=== PATIENT | female | born 1980 | race American Indian/Alaskan Native ===

== ENCOUNTER 2022-09-21 10:20 | Emergency (ER) | payer MEDICAID, SELFPAY ==
[2022-09-21 10:59] VITALS: BP 119/75; PULSE 74; RESP 18; TEMP 36.5; O2SAT 99; BMI 27.3
[2022-09-21 12:26] LABS: Influenza A PCR NEGATIVE (Negative); Influenza B PCR NEGATIVE (Negative); Resp Syncy Virus RNA Qual PCR NEGATIVE (Negative); SARS COV2 PCR INHOUSE NEGATIVE (Negative)
--- NOTE | 2022-09-21 13:14 | ED.GENADULT ---
HPI - General Adult General Chief complaint: General Medical Stated complaint: Strep throat Time Seen by Provider: 09/21/22 13:03 Source: patient and old records reviewed History of Present Illness HPI narrative: Patient states she began feeling sick a little over week ago. Seven days ago she saw her PCP and was diagnosed with strep throat by a throat swab. She was started on penicillin. She has just been getting progressively worse ever since She continues to have fevers up to 101 at home. And now her ears hurt which is a new symptom. Right more so than left. Sore throat is slightly better. But still present. Mild cough. No sputum. General myalgias. No dyspnea. No history of asthma. Smoker of approximately 4 cigarettes per day but states has not smoked at all since she has been sick. Related Data Previous Rx's Medication Instructions Recorded amoxicillin 500 mg tablet 1,000 mg PO Q12H #40 tabs 09/21/22 prednisone 20 mg tablet 40 mg PO DAILY #10 tabs 09/21/22 Allergies Allergy/AdvReac Type Severity Reaction Status Date / Time No Known Allergies Allergy Verified 09/21/22 10:59 [No Known Allergies*] Review of Systems Constitutional: Comments: Fevers and chills. Myalgias. ENT: Comments: Ear pain, sore throat, Cardiovascular: Comments: no chest pain or palpitations Respiratory: Comments: minimal cough. No dyspnea Gastrointestinal: Comments: no nausea vomiting diarrhea constipation Genitourinary: Comments: no dysuria Integumentary/Breasts: Comments: no rash Neurologic: Comments: no focal weakness Hematologic/Lymphatic: Comments: positive submandibular lymph node enlargement, bilateral, equal PMFSH Social History Social History Advance Directives: No Advance Directives Information Provided: No Physical Exam ED Vital Signs: Vital Signs - 24 hr 09/21/22 10:59 Temperature 97.7 F Pulse Rate 74 Respiratory Rate 18 Blood Pressure 119/75 Pulse Oximetry 99 Oxygen Delivery Method Room Air BMI result Body Mass Index 27.3 Const Other: awake and alert. No acute distress. Afebrile here HENMT Other: throat with mild erythema. No exudate. No tonsillar swelling. No uvula swelling. No stridor. positive bilateral submandibular lymphadenopathy. No difficulty swallowing. Left TM with bulging, clear fluid, ossicles not visible secondary to fluid. Right TM bulging, erythematous, ossicles not visible secondary to fluid. Eyes Other: mild conjunctiva injection without other abnormalities Neck Other: Full range of motion. No meningismus Resp Other: good air entry bilaterally. Clear and equal bilaterally. No wheezes rales or rhonchi. Cardio Other: Regular rate and rhythm without murmurs rubs or gallops GI Other: soft nondistended. Minimal left upper quadrant tenderness. Skin Other: Warm pink and dry without rash Neuro Other: grossly nonfocal neuro exam Medical Decision Making Medical Decision Making [facility] Narrative: Patient with recent strep infection, possibly with secondary viral infection. Right otitis media which is apparently new. Will switch from penicillin to amoxicillin for better coverage. Will add prednisone for inflammatory symptoms Lab Data Labs: Lab Results 09/21/22 Range/Units 11:41 Influenza Type A (PCR) NEGATIVE (Negative) Influenza Type B (PCR) NEGATIVE (Negative) RSV RNA Qual (PCR) NEGATIVE (Negative) SARS-CoV-2 RNA (RT-PCR) NEGATIVE (Negative) Discharge Plan Discharge Clinical Impression: Otitis media Patient Disposition: Home, Self-Care Instructions: Ear Infection (ED) Additional Instructions: stop taking penicillin. Continue all other medications. The new antibiotic is amoxicillin. Prednisone is for inflammation and swelling. Prescriptions: New prednisone 20 mg tablet 40 mg PO DAILY Qty: 10 0RF amoxicillin 500 mg tablet 1,000 mg PO Q12H Qty: 40 0RF
== END 2022-09-21 13:35 | disposition home or self-care (01) ==
PROVIDERS: Emergency Provider Emergency Medicine
DX: H66.91 Otitis media, unspecified, right ear (principal); Z20.828 Contact with and (suspected) exposure to other viral communicable diseases
CPT/HCPCS: 0241U; 99283

== ENCOUNTER 2023-07-25 05:18 | Emergency (ER) | payer OTHER, SELFPAY ==
[2023-07-25 05:28] VITALS: BP 156/85; PULSE 81; RESP 15; TEMP 36.4; O2SAT 98; BMI 26.4
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
[2023-07-25] MEDS: cephALEXin 500 MG CAPSULE PO (06:19)
[2023-07-25] MEDS: NaPROXEN 500 MG TABLET PO (06:19)
== END 2023-07-25 06:29 | disposition home or self-care (01) ==
PROVIDERS: Emergency Provider Emergency Medicine
DX: S81.811A Laceration without foreign body, right lower leg, initial encounter (principal); S81.812A Laceration without foreign body, left lower leg, initial encounter; L03.116 Cellulitis of left lower limb; L03.115 Cellulitis of right lower limb; X99.9XXA Assault by unspecified sharp object, initial encounter; Y93.9 Activity, unspecified; Y92.9 Unspecified place or not applicable; Y99.9 Unspecified external cause status; Z79.899 Other long term (current) drug therapy
CPT/HCPCS: 99284

== ENCOUNTER 2023-08-17 18:02 | Emergency (ER) | payer OTHER, SELFPAY ==
[2023-08-17 18:40] VITALS: BP 154/117; PULSE 111; RESP 20; TEMP 36.9; O2SAT 97; BMI 25.4
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
--- OUTSIDE RECORDS SUMMARY | 2023-08-17 19:41 | XMS_ITS | Continuity of Care Document ---
Author Name Unknown Organization [facility] Adult Address [address] [place] [address]- Care Team Providers Care Coater Hand Name Role Phone Geremias CARMONA, Adeola Prado [id number] - 09/03/22 [facility] Adult [address] [place] [id number]- Encounter Diagnosis Bipolar affective(Discharge Diagnosis) - 08/27/22 Depression(Discharge Diagnosis) - 08/27/22 Attending Physician: Not on Staff, Attending MD Allergies, Adverse Reactions, Alerts Substance Reaction Severity Status Mold Active Immunizations Given and Recorded Vaccine Date Status Refusal Reason influenza virus vaccine, inactivated 1 08/10/22 Gi robyn influenza virus vaccine, inactivated 07/05/20 Give n influenza virus vaccine, inactivated 06/27/19 Give n influenza virus vaccine, inactivated 06/14/18 Trell rded influenza virus vaccine, inactivated 05/14/17 Trell rded influenza virus vaccine, inactivated 11/02/16 Trell rded influenza virus vaccine, inactivated 11/05/15 Give n influenza virus vaccine, inactivated 11/16/14 Trell rded pneumococcal 23-valent vaccine 02/09/20 Given tetanus/diphtheria/pertussis, acel(Tdap) 07/03/19 Given tetanus/diphtheria/pertussis, acel(Tdap) 12/19/15 Given tetanus/diphtheria/pertussis, acel(Tdap) 05/14/15 Recorded tetanus/diphtheria/pertussis, acel(Tdap) 01/20/11 Given influ virus vac, H1N1, inactive(oldterm) 2 07/30/09 Given 1Result Comment: [facility] [id number] 2Admin Note: H1N1 Medications cloNIDine 0.1 mg oral tablet 0.1 mg, 1, tablet, By Mouth, 2 times a day, Take 1 tab 2 or 3 times a day as needed for anxiety, # 180 tablet, Refills 0, Tot. Refills 0, Maintenance, 08/24/22 11:30:00 EST, Do Not Route, Partial fill upon patient request if the prescription is for a... Start Date: 08/24/22 Status: Ordered clotrimazole 1% topical cream 1 application, Topically, 2 times a day, for 4 week(s), Apply to affected areas twice daily until resolution, # 30 Gm, 1 Refills, Acute 10/22/22 9:56:00 EST, 08/27/22 9:56:00 EST, Cream, [facility]/pharmacy#[id number], Partial fill upon patient request if the pre... Start Date: 08/27/22 Stop Date: 10/22/22 Status: Ordered KlonoPIN 1 mg oral tablet 1 tablet = 1 mg, By Mouth, 2 times a day, PRN Anxiety, # 8 tablet, 0 Refills, Maintenance, 07/05/2010:05:00 EDT, Tablet, [facility]/pharmacy #[id number], 158, cm, 06/11/20 12:25:00 EDT, Height, 79.1, kg, 07/05/20 9:07:00 EDT, Dry Weight Start Date: 07/05/20 Stop Date: 07/09/20 Status: Ordered LaMICtal 100 mg oral tablet 100 mg, 1, tablet, By Mouth, Daily, 1 tablet by mouth daily at bedtime, # 60 tablet, Refills 0, Tot. Refills 0, Maintenance, 08/24/22 11:26:00 EST, Do Not Route, Partial fill upon patient request if the prescription is for a schedule II opioid drug. Start Date: 08/24/22 Status: Ordered lamotrigine 150 mg oral tablet 2 tablet = 300 mg, By Mouth, Daily, Take 2 tabs by mouth every night at bedtime, # 60 tablet, 0 Refills, Maintenance, 08/24/22 11:24:00 EST, Tablet, Partial fill upon patient request if the prescription is for a schedule II opioid drug. Start Date: 08/24/22 Status: Ordered Methadone = 150 mg, By Mouth, Daily, [facility], 0 Refills, Maintenance, 01/23/20 13:17:00 EDT, Tablet,Partial fill upon patient request Start Date: 01/23/20 Status: Ordered Nicotrol Inhaler 10 mg inhalation device See Instructions, follow label instructions, # 1 each, 0 Refills, Maintenance, 08/24/22 11:26:00 EST, Partial fill upon patient request if the prescription is for a schedule II opioid drug. Start Date: 08/24/22 Status: Ordered SEROquel 50 mg oral tablet 1 tablet = 50 mg, By Mouth, 2 times a day, one tab at HS and one tab during the night PRN, # 60 tablet, 0 Refills, Maintenance, 08/24/22 11:29:00 EST, Tablet, Partial fill upon patient request if theprescription is for a schedule II opioid drug. Start Date: 08/24/22 Status: Ordered Vraylar 3 mg oral capsule 1 capsule = 3 mg, By Mouth, Daily, # 30 capsule, 0 Refills, Maintenance, 08/24/22 11:24:00 EST, Partial fill upon patient request if the prescription is for a schedule II opioid drug. Start Date: 08/24/22 Status: Ordered Problem List Condition Confirmation Course Effective Dates Status H ealth Status Informant Anxiety 1 Confirmed Active Bipolar affective 2 Confirmed Active Marijuana smoker Confirmed Active Constipation Confirmed Active Depression 3 Confirmed Active Dysphagia Confirmed Active Frequent headaches Confirmed Active GERD (gastroesophageal reflux disease) Confirmed Active GBS carrier Confirmed Active Hx of trauma in childhood Confirmed Active H/O delivery, currently Confirmed Active Homeless Confirmed Active Dermatitis Confirmed Active Low grade KHAI Confirmed Active Drug abuse during 4 Confirmed Active Encounter to establish care Confirmed Active Screening for breast cancer Confirmed Active Contraception management Confirmed Active PTSD (post-traumatic stress disorder) Confirmed Active Cervix, short (affecting ) Confirmed Active Subclinical hypothyroidism Confirmed Active Current tobacco use Confirmed Active 1Hx of anxiety - not managed at present 2Hx of bipolar- not managed at present 3Hx of depression - not managed at present. 4utox 02/13: positive cocaine, marijuana, benzo, opiates, methadone Diagnosis Diagnosis Type Effective Dates Health Status Clinical Service Informant Bipolar affective Discharge Diagnosis 08/27/22 Depression Discharge Diagnosis 08/27/22 Vital Signs Most recent to oldest [Reference Range]: 1 Height 158 cm (08/27/22 9:10 AM) Weight 66 kg (08/27/22 9:10 AM) Oxygen Saturation [94-100 %] 99 % (08/27/22 9:10 AM) Pulse Rate [55-90 bpm] 75 bpm (08/27/22 9:10 AM) Body Mass Index [18.5-24.99 kg/m2] 26.44 kg/m2 *H* (08/27/22 9:10 AM) Blood Pressure [90-138/55-84 mm Hg] 109/ 70mm Hg (08/27/22 9:10 AM) Mode of Delivery (Oxygen) Room air (08/27/22 9:10 AM) Blood pressure sites Arm, left (08/27/22 9:10 AM) Weight Obtained Via Standing scale (08/27/22 9:10 AM) Social History Social History Type Response Smoking Status 5-9 cigarettes (betw een 1/4 to 1/2 pack)/day in last 30 days; Interested in cessation: No entered on: 08/10/22 Sex Female Note * Rosario Sahu: PERFORM, SIGN, VERIFY Event Display: Patient Education/Instruction Authored Date: [id number] [facility] *[facility] Clinical Summary Name LASHANDA RICHTER Age 42 Years 1980 PCP Geremias CARMONA, Adeola Prado PCP Visit Date 08/27/2022 08:53:00 Additional Instructions: Scheduled Appointments?? Future Appointments ?*[facility] ?Phone:??--?Fax:??-- ?Appt. Date:??10/08/2022?9:00 AM ?Scheduled Provider:??Nadir Wolf MD ?*[facility] ?[address] ?Phone:??--?Fax:??-- ?Appt. Date:??10/13/2022?2:00 PM ?Scheduled Provider:??Geremias CARMONA, Adeola Prado Follow-Up Instructions ?? Diagnosis Medications: Please continue your medications until treatment is completed or stopped by your provider. Discuss any questions related to medications with your provider. Medications to Continue with No Changes These medications were not printed or sent to your pharmacy cariprazine (Vraylar 3 mg oral capsule) 1 capsule Oral Daily. Refills: 0. Next Dose: Clonazepam (KlonoPIN 1 mg oral tablet) 1 tab(s) Oral twice a day as needed Anxiety for 4 Days. Refills: 0. Next Dose: Clonidine (cloNIDine 0.1 mg oral tablet) 1 tab(s) Oral twice a day. Take 1 tab 2 or 3 times a day as needed for anxiety. Refills: 0. Next Dose: Lamotrigine (LaMICtal 100 mg oral tablet) 1 tab(s) Oral Daily. 1 tablet by mouth daily at bedtime. Refills: 0. Next Dose: Lamotrigine (lamotrigine 150 mg oral tablet) 2 tab(s) Oral Daily. Take 2 tabs by mouth every night at bedtime. Refills: 0. Next Dose: Methadone 150 Milligram Oral Daily. [facility]. Next Dose: Nicotine (Nicotrol Inhaler 10 mg inhalation device) follow label instructions. Refills: 0. Next Dose: Quetiapine (SEROquel 50 mg oral tablet) 1 tab(s) Oral twice a day. one tab at HS and one tab duringthe night PRN. Refills: 0. Next Dose: Allergy Info:?? Mold Medications Given This Visit Future Orders ?No future orders Vital Signs Height 158 cm Weight 66 kg BMI 26.44 kg/m2 Blood Pressure 109 mm Hg/70 mm Hg Temperature Pulse Rate 75 bpm Respiratory Rate 02 Sat Mode of Delivery 99 %/Room air You can now view a summary of your hospital visit from the comfort of your home through a free online portal called [employer]. [employer] is a website that allows you to securely view your medical information including discharge summary, medications and follow-up visits. ??You can alsosend a secure electronic message to your doctor???s office to request appointments, renew medications or just ask a question. You can enroll at [email or web address] or register during your next office visit. Disclaimer:?? The information provided is of a general nature and is intended to be used in conjunction with the recommendations and advice of your health care practitioner. ??Every effort has been made to ensure that the information provided is accurate and complete at the time it is provided to you however, as your needs change, or, as new ??information becomes available, different or additional instructions may be required. If you have questions, please consult with your primary care provider or pharmacist, as appropriate. ??This information is not intended to serve as substitution for assessment and evaluation by a qualified health care provider. If you do not have a primary care provider, you may find a [facility] provider by calling [facility] at [phone]. For information about the plan of care including goals and instructions for your diagnosis, please see the patient education orders section of this document. Patient Education Materials?? The content of this educational material or handout may have been modified, supplemented, or adapted from its original content and format to support your individualized medical care. Patient Care team information Care Team Personnel Name: Nat Joe RN Position: [facility] RN Member Role: Primary Care Nurse Name: Carina VALERIO, Jo De Los Santos Position: [facility] AM[facility] Nurse Member Role: Primary Care Nurse Name: Geremias CARMONA, Adeola Prado Position: [facility]O Associate Professional Member Role: PCP Address: Address: [address] [place] [address]- Care Team Related Persons Name: GRADY BEARDEN Address: home [address] [place] [address] Name: NEEAN COLE Address: [place] Address: home [address] [place] [address] Name: GRADY COLE Address: home [phone] [place] [address] Name: LUANNE SUTTON Address: home [address] [place] [address]
--- OUTSIDE RECORDS SUMMARY | 2023-08-17 19:41 | XMS_ITS | Continuity of Care Document ---
Author Name Unknown Organization [facility] Adult Address [address] [place] [address]- Care Team Providers Care Human Insights Lead Ads Marketing Name Role Phone Geremias CARMONA, Adeola Prado Primary Care Physician Encounter [facility] Date(s): 09/15/22 - 10/15/22 [facility] Adult [address] [place] [address]- Allergies, Adverse Reactions, Alerts Substance Reaction Severity [...] H1N1, inactive(oldterm) 2 07/30/09 Given 1Result Comment: [facility] [id number] 2Admin Note: H1N1 Medications cariprazine 1.5 mg oral capsule 1 capsule = 1.5 mg, By Mouth, Daily, # 30 capsule, 1 Refills, Maintenance, 10/13/22 14:22:00 EST, [facility]/pharmacy #[id number], Partial fill upon patient request if the prescription is for a schedule II opioiddrug., 158, cm, 10/13/22 14:04:00 EST, Height, 64,... Start Date: 10/13/22 Stop Date: 12/12/22 Status: Ordered cloNIDine 0.1 mg oral tablet 0.1 mg, 1, tablet, By Mouth, 2 times a day, # 60 tablet, Refills 1, Tot. Refills 1, Maintenance, 09/14/22 10:10:00 EST, Route to Pharmacy Electronically, [facility]/pharmacy #[id number], Partial fill upon patientrequest if the prescription is for a schedule II op... Start Date: 09/14/22 Stop Date: 11/13/22 Status: Ordered clotrimazole 1% topical cream 1 application, Topically, 2 times a day, for 4 week(s), Apply to affected areas twice daily until resolution, # 30 Gm, 1 Refills, Acute 10/22/22 9:56:00 EST, 08/27/22 9:56:00 EST, Cream, [facility]/pharmacy#[id number], Partial fill upon patient request if the pre... Start Date: 08/27/22 Stop Date: 10/22/22 Status: Ordered doxycycline hyclate 100 mg oral capsule 1 capsule = 100 mg, By Mouth, 2 times a day, for 7 days, # 14 capsule, 0 Refills, Acute 10/22/22 8:44:00 EST, 10/15/22 8:44:00 EST, Capsule, [facility]/pharmacy #[id number], Partial fill upon patient request if the prescription is for a schedule II opioid drug., 1... Start Date: 10/15/22 Stop Date: 10/22/22 Status: Ordered Flonase 50 mcg/inh nasal spray 1 sprays, Nares, Both, 2 times a day, # 16 Gm, 0 Refills, Maintenance, 09/14/22 9:49:00 EST, [place]/pharmacy #[id number], Partial fill upon patient request if the prescription is for a schedule II opioid drug., 1 sprays Nares, Both 2 times a day,x7 days... Start Date: 09/14/22 Stop Date: 09/21/22 Status: Ordered lamotrigine 25 mg oral tablet 50 mg, 2, tablet, By Mouth, Daily, # 28 tablet, Refills 1, Tot. Refills 1, Maintenance, 10/13/22 14:16:00 EST, Route to Pharmacy Electronically, [facility]/pharmacy #[id number], Partial fill upon patient request if the prescription is for a schedule II opioid drug... Start Date: 10/13/22 Stop Date: 11/10/22 Status: Ordered Problem List Condition Confirmation Course Effective Dates Status H ealth Status Informant Anxiety 1 Confirmed Active Benzodiazepine abuse Confirmed Active Bipolar affective 2 Confirmed Active Marijuana smoker Confirmed Active Constipation Confirmed Active Depression 3 Confirmed Active Dysphagia Confirmed Active Frequent headaches Confirmed Active GERD (gastroesophageal reflux disease) Confirmed Active GBS carrier Confirmed Active Hx of trauma in childhood Confirmed Active H/O delivery, currently Confirmed Active History of opioid abuse Confirmed Active Homeless Confirmed Active Dermatitis Confirmed Active Low grade KHAI Confirmed Active Drug abuse during 4 Confirmed Active Sinus pain Confirmed Active Encounter to establish care Confirmed [...] 02/13: positive cocaine, marijuana, benzo, opiates, methadone Social History Social History Type Response Smoking Status 5-9 cigarettes (betw een 1/4 to 1/2 pack)/day in last 30 days; Interested in cessation: No entered on: 08/10/22 Sex Female Patient Care team information Care Team Personnel Name: Nat Joe RN Position: [facility] RN Member Role: Primary Care Nurse Name: Jo Lim RN Position: [facility] AMB Nurse Member Role: Primary Care Nurse Name: Adeola Archuleta NP Position: [facility] PCO Associate Professional Member Role: PCP Address: Address: [address] [place] [address] [address] [place] [address]- Care Team Related Persons Name: GRADY BEARDEN Address: home [address] [place] [address] Name: NEENA COLE Address: [employer] Address: home [address] [place] [address] [place] Name: GRADY COLE Address: home [phone] [place] [address] Name: LUANNE SUTTON Address: home [address] [place] [address]
--- OUTSIDE RECORDS SUMMARY | 2023-08-17 19:41 | XMS_ITS | Continuity of Care Document ---
Author Name Unknown Organization [facility] ter Address [address] [place] [address]- Care Team Providers Care Computer Patternmaker Name Role Phone Not on Staff, PCP Primary Care Physician Unavail able Encounter [facility] Date(s): 06/11/22 - 06/11/[address] [address]- Encounter Diagnosis Headache(Final) - 06/11/22 Discharge Disposition: A-D/C AMA Attending Physician: Ty Cheung MD Admitting Physician: Ty Cheung MD Referring Physician: Not on Staff, Referring [...] 1 07/30/09 Given 1Admin Note: H1N1 Medications cloNIDine 0.1 mg oral tablet 0.2 mg, 2, tablet, By Mouth, Every 12 hours, # 56 tablet, Refills 0, Tot. Refills 0, Maintenance, 08/25/20 13:12:00 EST, Route to Pharmacy Electronically, [facility]/pharmacy #[id number], Partial fill upon patient request, 158, cm, 06/11/20 12:25:00 EDT, Height, 7... Start Date: 08/25/20 Stop Date: 09/08/20 Status: Ordered KlonoPIN 1 mg oral tablet 1 tablet = 1 mg, By Mouth, 2 times a day, PRN Anxiety, # 8 tablet, 0 Refills, Maintenance, 07/05/2010:05:00 EDT, Tablet, [facility]/pharmacy #[id number], 158, cm, 06/11/20 12:25:00 EDT, Height, 79.1, kg, 07/05/20 9:07:00 EDT, Dry Weight Start Date: 07/05/20 Stop Date: 07/09/20 Status: Ordered LaMICtal 25 mg oral tablet 25 mg, 1, tablet, By Mouth, Daily, # 30 tablet, Refills 0, Tot. Refills 0, Maintenance, 07/05/20 10:06:00 EDT, Route to Pharmacy Electronically, [facility]/pharmacy #[id number], 158, cm, 06/11/20 12:25:00 EDT, Height, 79.1, kg, 07/05/20 9:07:00 EDT, Dry Weight Start Date: 07/05/20 Stop Date: 08/04/20 Status: Ordered Methadone = 150 mg, By Mouth, Daily, [facility], 0 Refills, Maintenance, 01/23/20 13:17:00 EDT, Tablet,Partial fill upon patient request Start Date: 01/23/20 Status: Ordered QUEtiapine 100 mg oral tablet 100 mg, 1, tablet, By Mouth, Daily in AM, # 14 tablet, Refills 0, Tot. Refills 0, Maintenance, 08/25/20 13:11:00 EST, Route to Pharmacy Electronically, [facility]/pharmacy #[id number], Partial fill upon patient request, 158, cm, 06/11/20 12:25:00 EDT, Height, 79.1... Start Date: 08/25/20 Stop Date: 09/08/20 Status: Ordered QUEtiapine 200 mg oral tablet 200 mg, 1, tablet, By Mouth, Daily at bedtime, # 14 tablet, Refills 0, Tot. Refills 0, Maintenance,08/25/20 13:12:00 EST, Route to Pharmacy Electronically, [facility]/pharmacy #[id number], Partial fill upon patient request, 158, cm, 06/11/20 12:25:00 EDT, Height,... Start Date: 08/25/20 Stop Date: 09/08/20 Status: Ordered Problem List Condition Effective Dates [...] during ( Confirmed) 4 Active Methadone maintenance(Confirmed) 2018 Active Cervix, short (affecting )(Confirmed) Active Subclinical hypothyroidism(Confirmed) Active Current tobacco use(Confirmed) Active 1Hx of anxiety - not managed at present 2Hx of bipolar- not managed at present 3Hx of depression - not managed at present. 4utox 02/13: positive cocaine, marijuana, benzo, opiates, methadone 592mg daily - [facility] ([place]) Results Radiology Reports * Exam Date Time Procedure Performing Provider Status 06/11/22 1:55 PM Chest 2 Views Frontal and Lat Jaya Contreras; Auth (Verified) Notes: (Chest 2 Views Frontal and Lat) Reason For Exam: Chest Pain;Other: RESULT: Chest 2 Views Frontal and Lat PA and lateral chest x-ray dated June 11, 2022. Comparison films are from July 19, 2009. HISTORY: Chest pain. FINDINGS: The cardiac silhouette is within normal limits for size. Hilar and mediastinal structuresare unremarkable. No airspace infiltrate or pleural effusion is identified. Visualized osseous structures are within normal limits. IMPRESSION: Normal chest x-ray. Examination 46[address]. Thank you for allowing me to participate in the care of this patient. WSN: [id number] Ordering Physician: Michelle Olivares Dictated By: Fredo Floyd MD Dictated Date/Time: 06/11/22 2:11 pm Reviewed By: Fredo Floyd MD Signed By: Fredo Floyd MD Signed Date/Time: 06/11/22 2:11 pm Transcribed By: MIRANDA Transcribed Date/Time: 06/11/22 2:10 pm Vital Signs Most recent to oldest [Reference Range]: 1 2 3 Oxygen Saturation [94-100 %] 100 % (06/11/22 6:52 PM) 98 % (06/11/22 5:41 PM) 100 % (06/11/22 3:00 PM) Pulse Rate [55-90 bpm] 73 bpm (06/11/22 6:52 PM) 71 bpm (06/11/22 5:41 PM) 70 bpm (06/11/22 3:00 PM) Blood Pressure [90-138/55-84 mm Hg] 139/91mm Hg *H* (06/11/22 6:52 PM) 143/97mm Hg *H* (06/11/22 5:41 PM) 147/95mm Hg *H* (06/11/22 3:00 PM) Respiratory Rate [16-30 br/min] 18 br/min (06/11/22 6:52 PM) 20 br/min (06/11/22 5:41 PM) 22 br/min (06/11/22 3:00 PM) Temperature [96.8-100.4 DegF] 98.0 DegF (06/11/22 3:00 PM) 98.9 DegF (06/11/22 12:48 PM) Mode of Delivery (Oxygen) Room air (06/11/22 6:52 PM) Room air (06/11/22 5:41 PM) Room air (06/11/22 3:00 PM) Blood pressure sites Arm, right (06/11/22 6:52 PM) Temperature Route Oral (06/11/22 3:00 PM) Oral (06/11/22 12:48 PM) Social History Social History Type Response Smoking Status 10 or more cigarette s (1/2 pack or more)/day in last 30 days entered on: 03/12/20 Sex Female Note * BHSPowerscribe , CIS S: TRANSCRIBE Everett CRANE, Fredo Biggs: VERIFY Event Display: Result: Authored Date: [id number] PA and lateral chest x-ray dated June 11, 2022. Comparison films are from July 19, 2009. HISTORY: Chest pain. FINDINGS: The cardiac silhouette is within normal limits for size. Hilar and mediastinal structuresare unremarkable. No airspace infiltrate or pleural effusion is identified. Visualized osseous structures are within normal limits. IMPRESSION: Normal chest x-ray. Examination 16950. Thank you for allowing me to participate in the care of this patient. WSN: [id number] Ordering Physician: Michelle Olivares Dictated By: Fredo Floyd MD Dictated Date/Time: 06/11/22 2:11 pm Reviewed By: Fredo Floyd MD Signed By: Fredo Floyd MD Signed Date/Time: 06/11/22 2:11 pm Transcribed By: MIRANDA Transcribed Date/Time: 06/11/22 2:10 pm Care Team Personnel Name: Not on Staff, PCP
--- OUTSIDE RECORDS SUMMARY | 2023-08-17 19:41 | XMS_ITS | Continuity of Care Document ---
Author Name Unknown Organization [facility] Adult Address [address] [place] [address]- Care Team Providers Care Elementary Reading Tutor Name Role Phone Reese CRANE, Susan Thornton Primary Care Physic fox [place] [facility] [place](s): 12/31/22 - 03/04/23 [facility] [address] [place] [address]- Attending Physician: Not on Staff, Attending MD Allergies, Adverse Reactions, Alerts Substance Reaction Severity Status Mold HEADACHE, BREATHING ISSUES Mild A ctive Immunizations Given and Recorded Vaccine Date Status [...] H1N1, inactive(oldterm) 2 07/30/09 Given 1Result Comment: [facility] [id number] 2Admin Note: H1N1 Medications Flonase 50 mcg/inh nasal spray 2 sprays = 100 mcg, Nares, Both, Daily, # 15.8 mL, 0 Refills, Maintenance, 01/20/23 10:07:00 EDT, Nasal [place], [id number], Partial fill upon patient request if the prescription is fora schedule II opioid drug., 2 sprays Nares, Both Da... Start Date: 01/20/23 Status: Ordered hydrOXYzine pamoate 50 mg oral capsule = 50 mg, By Mouth, 2 times a day, PRN Anxiety, # 60 capsule, 2 Refills, Maintenance, 01/20/23 10:15:00 EDT, Capsule, [id number], Partial fill upon patient request if the prescription is for a schedule II opioid drug., 155, cm, 01/19/23... Start Date: 01/20/23 Status: Ordered lamotrigine 25 mg oral tablet TAKE 1 TABLET BY MOUTH DAILY IN THE MORNING Start Date: 02/03/23 Status: Ordered loratadine 10 mg oral tablet 10 mg, 1, tablet, By Mouth, Daily, # 30 tablet, Refills 0, Tot. Refills 0, Maintenance, 01/20/23 10:10:00 EDT, Route to Pharmacy Electronically, [id number], Partial fill upon patient request if the prescription is for a schedule II opi... Start Date: 01/20/23 Status: Ordered oxyCODONE 5 mg oral capsule 1 capsule = 5 mg, By Mouth, Every 6 hours, 0 Refills, Maintenance, 01/29/23 15:42:00 EDT Start Date: 01/29/23 Status: Ordered prazosin 1 mg oral capsule 1 mg, 1, capsule, By Mouth, Daily at bedtime, # 30 capsule, Refills 2, Tot. Refills 2, Maintenance,01/20/23 10:19:00 EDT, Route to Pharmacy Electronically, [facility][id number], Partial fill upon patient request if the prescription is for a mary... Start Date: 01/20/23 Status: Ordered SEROquel 100 mg oral tablet 100 mg, 1, tablet, By Mouth, Daily at bedtime, # 30 tablet, Refills 2, Tot. Refills 2, Maintenance,01/20/23 10:11:00 EDT, Route to Pharmacy Electronically, [facility] #[id number], Partial fill upon patient request if the prescription is for a mary... Start Date: 01/20/23 Status: Ordered Problem List Condition Confirmation Course [...] Active PTSD (post-traumatic stress disorder) Confirmed Active MDD (major depressive disorder), recurrent severe, without psychosis Confirmed Active Cervix, short (affecting ) Confirmed [...] in cessation: No entered on: 08/10/22 Sex Patient Care team information Care Team Personnel Name: Cholo Power RN Position: [facility] RN Member Role: Primary Care Nurse Name: Morena Mcgraw RN Position: [facility] RN Member Role: Primary Care Nurse Name: Maggy Porter RN Position: [facility] RN Member Role: Primary Care Nurse Name: Nat Joe RN Position: [facility] OB RN Member Role: Primary Care Nurse Name: Jo Lim RN Position: [facility] AMB Nurse Member Role: Primary Care Nurse Name: Susan Leigh MD Position: [facility] General Pediatrics MD Member Role: PCP Address: Address: [address] [place] [address]- [place] Care Team Related Persons Name: GRADY BEARDEN Address: home [address] [place] [address] Name: NEENA COLE Address: [employer] Address: home [address] [place] [address] [place] Name: GRADY COLE Address: home [phone] [place] [address] Name: LUANNE SUTTON Address: home [address] [place] [address]
--- OUTSIDE RECORDS SUMMARY | 2023-08-17 19:41 | XMS_ITS | Continuity of Care Document ---
Author Name Unknown Organization [facility] Adult Address [address] [place] [address]- Care Team Providers Care Waterproofing Supervisor Name Role Phone Geremias CARMONA, Adeola Prado Primary Care Physician Encounter [facility] [place] Date(s): 09/29/22 - 10/06/22 [facility] Adult [address] [place] [address]- Encounter Diagnosis Bipolar affective(Discharge Diagnosis) - 09/29/22 History of opioid abuse(Discharge Diagnosis) - 09/29/22 Benzodiazepine abuse(Discharge Diagnosis) - 09/29/22 Attending Physician: Not on Staff, Attending MD [...] H1N1, inactive(oldterm) 2 07/30/09 Given 1Result Comment: [facility] [id number] 2Admin Note: H1N1 Medications cariprazine 1.5 mg oral capsule 1 capsule = 1.5 mg, By Mouth, Daily, # 30 capsule, 0 Refills, Maintenance, 09/14/22 10:09:00 EST, [id number], Partial fill upon patient request if the prescription is for a schedule II opioiddrug., 158, cm, 09/14/22 9:22:00 EST, Height, 64, k... Start Date: 09/14/22 Stop Date: 10/14/22 Status: Ordered cloNIDine 0.1 mg oral tablet 0.1 mg, 1, tablet, By Mouth, 2 times a day, # 60 tablet, Refills 1, Tot. Refills 1, Maintenance, 09/14/22 10:10:00 EST, Route to Pharmacy Electronically, [id number], Partial fill upon patientrequest if the prescription is for a schedule II op... Start Date: 09/14/22 Stop Date: 11/13/22 Status: Ordered clotrimazole 1% topical cream 1 application, Topically, 2 times a day, for 4 week(s), Apply to affected areas twice daily until resolution, # 30 Gm, 1 Refills, Acute 10/22/22 9:56:00 EST, 08/27/22 9:56:00 EST, Cream, [id number], Partial fill upon patient request if the pre... Start Date: 08/27/22 Stop Date: 10/22/22 Status: Ordered Flonase 50 mcg/inh nasal spray 1 sprays, Nares, Both, 2 times a day, # 16 Gm, 0 Refills, Maintenance, 09/14/22 9:49:00 EST, [id number], Partial fill upon patient request if the prescription is for a schedule II opioid drug., 1 sprays Nares, Both 2 times a day,x7 days... Start Date: 09/14/22 Stop Date: 09/21/22 Status: Ordered lamotrigine 50 mg oral tablet, extended release 1 tablet = 50 mg, By Mouth, Daily, # 14 tablet, 0 Refills, Maintenance, 09/29/22 9:38:00 EST, ER Tablet, [id number], Partial fill upon patient request if the prescription is for a schedule IIopioid drug., 158, cm, 09/29/22 9:10:00 EST, Height... Start Date: 09/29/22 Stop Date: 10/13/22 Status: Ordered Problem List Condition Confirmation Course [...] Clinical Service Informant Bipolar affective Discharge Diagnosis 09/29/22 History of opioid abuse Discharge Diagnosis 09/29/22 Benzodiazepine abuse Discharge Diagnosis 09/29/22 Vital Signs Most recent to oldest [Reference Range]: 1 Height 158 cm (09/29/22 9:10 AM) Social History Social History Type Response Smoking Status 5-9 cigarettes (betw een 1/4 to 1/2 pack)/day in last 30 days; Interested in cessation: No entered on: 08/10/22 Sex Female Patient Care team information Care Team Personnel Name: Nat Joe RN Position: [facility] OB RN Member Role: Primary Care Nurse Name: Jo Lim RN Position: [facility] AMB Nurse Member Role: Primary Care Nurse Name: Adeola Archuleta NP Position: [facility] PCO Associate Professional Member Role: PCP Address: Address: [address] [place] [address] [address] [place] [address]- Care Team Related Persons Name: GRADY BEARDEN Address: home [address] [place] [address] Name: KELSEY BLESSING Address: [employer] Address: home [address] [place] [address] [place] [address] [place] Name: GRADY COLE Address: home [phone] [place] [address] Name: LUANNE SUTTON Address: home [address] [place] [address]
--- OUTSIDE RECORDS SUMMARY | 2023-08-17 19:42 | XMS_ITS | Continuity of Care Document ---
Author Name Unknown Organization [facility] Address [address] [place] [address]- Care Team Providers Care Softball Coach Name Role Phone Estevan Sinha MD Primary Care Physician [phone] Encounter [facility] [place] Date(s): 03/31/20 - 03/31/[address] [address]- [facility] Encounter Diagnosis Leg pain(Final) - 03/31/20 Discharge Disposition: A-D/C Home Attending Physician: Nany Cueva DO Admitting Physician: Nany Cueva DO Referring Physician: Not on Staff, Referring MD Allergies, Adverse Reactions, Alerts Substance Reaction Severity Status NKA Active Immunizations Given and Recorded Vaccine Date Status Refusal Reason pneumococcal 23-valent vaccine 02/09/20 Given tetanus/diphtheria/pertussis, acel(Tdap) 07/03/19 Given tetanus/diphtheria/pertussis, acel(Tdap) 12/19/15 Given tetanus/diphtheria/pertussis, acel(Tdap) 01/20/11 Given influenza virus vaccine, inactivated 06/27/19 Give n influenza virus vaccine, inactivated 11/05/15 Give n influ virus vac, H1N1, inactive(oldterm) 1 07/30/09 Given 1Admin Note: H1N1 Medications cloNIDine 0.1 mg oral tablet 0.2 mg, 2, tablet, By Mouth, 2 times a day, # 56 tablet, Refills 1, Tot. Refills 1, Maintenance, 03/25/20 12:08:00 EDT, Print Requisition Start Date: 03/25/20 Stop Date: 04/22/20 Status: Ordered folic acid 1 mg oral tablet 1 mg, 1, tablet, By Mouth, Daily, # 30 tablet, Refills 0, Tot. Refills 0, Maintenance, 03/25/20 12:08:00 EDT, Print Requisition, Dry Weight Start Date: 03/25/20 Stop Date: 04/24/20 Status: Ordered hydrOXYzine pamoate 50 mg oral capsule = 50 mg, By Mouth, 3 times a day, PRN Anxiety, for 14 days, # 42 capsule, 2 Refills, Acute 05/06/2012:09:00 EDT, 03/25/20 12:09:00 EDT, Capsule, Dry Weight Start Date: 03/25/20 Stop Date: 05/06/20 Status: Ordered KlonoPIN 1 mg oral tablet 1 tablet = 1 mg, By Mouth, 2 times a day, PRN Anxiety, # 28 tablet, 1 Refills, Maintenance, 03/25/20 12:30:00 EDT, Tablet, Dry Weight Start Date: 03/25/20 Stop Date: 04/22/20 Status: Ordered LaMICtal 25 mg oral tablet 25 mg, 1, tablet, By Mouth, Daily, # 30 tablet, Refills 0, Tot. Refills 0, Maintenance, 03/25/20 12:09:00 EDT, Print Requisition, Dry Weight Start Date: 03/25/20 Stop Date: 04/24/20 Status: Ordered Methadone = 155 mg, By Mouth, Daily, 0 Refills, Maintenance, 01/23/20 13:17:00 EDT, Tablet, Partial fill uponpatient request Start Date: 01/23/20 Status: Ordered multivitamin Multiple Vitamins oral tablet 1 tablet, By Mouth, Daily, # 30 tablet, 0 Refills, Maintenance, 03/25/20 12:09:00 EDT, Tablet, Dry Weight Start Date: 03/25/20 Stop Date: 04/24/20 Status: Ordered pyridoxine 50 mg oral tablet 50 mg, 1, tablet, By Mouth, Daily, for 30 days, # 30 tablet, Refills 0, Tot. Refills 0, Acute 04/24/20 12:09:00 EDT, 03/25/20 12:09:00 EDT, Print Requisition, Dry Weight Start Date: 03/25/20 Stop Date: 04/24/20 Status: Ordered QUEtiapine 200 mg oral tablet 200 mg, 1, tablet, By Mouth, Daily at bedtime, # 30 tablet, Refills 0, Tot. Refills 0, Maintenance,03/25/20 12:09:00 EDT, Print Requisition, Dry Weight Start Date: 03/25/20 Stop Date: 04/24/20 Status: Ordered QUEtiapine 50 mg oral tablet 1 tablet = 50 mg, By Mouth, Daily at bedtime, # 30 tablet, 0 Refills, Maintenance, 03/25/20 12:10:00 EDT, Tablet, Dry Weight Start Date: 03/25/20 Stop Date: 04/24/20 Status: Ordered SEROquel 100 mg oral tablet 100 mg, 1, tablet, By Mouth, Daily, PRN, # 30 tablet, Refills 0, Tot. Refills 0, Maintenance, Other, 03/25/20 14:39:00 EDT, Print Requisition Start Date: 03/25/20 Stop Date: 04/24/20 Status: Ordered thiamine 100 mg oral tablet 100 mg, 1, tablet, By Mouth, 2 times a day, for 30 days, # 60 tablet, Refills 0, Tot. Refills 0, Acute 04/24/20 12:10:00 EDT, 03/25/20 12:10:00 EDT, Print Requisition, Dry Weight Start Date: 03/25/20 Stop Date: 04/24/20 Status: Ordered traZODone 100 mg oral tablet 100 mg, 1, tablet, By Mouth, Daily at bedtime, # 30 tablet, Refills 0, Tot. 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 4utox 02/13: positive cocaine, marijuana, benzo, opiates, methadone 592mg daily - [facility] ([place]) Vital Signs Most recent to oldest [Reference Range]: 1 2 3 Weight 85.8 kg (03/31/20 5:25 PM) 85.8 kg (03/31/20 12:50 PM) 85.8 kg (03/31/20 12:29 PM) Oxygen Saturation [94-100 %] 96 % (03/31/20 7:29 PM) 95 % (03/31/20 5:25 PM) 99 % (03/31/20 2:45 PM) Pulse Rate [55-90 bpm] 74 bpm (03/31/20 7:29 PM) 74 bpm (03/31/20 5:25 PM) 63 bpm (03/31/20 2:45 PM) Blood Pressure [90-138/55-84 mm Hg] 114/75mm Hg (03/31/20 7:29 PM) 124/87mm Hg (03/31/20 5:25 PM) 102/51mm Hg (03/31/20 2:45 PM) Respiratory Rate [16-30 br/min] 18 br/min (03/31/20 7:29 PM) 20 br/min (03/31/20 5:25 PM) 17 br/min (03/31/20 2:45 PM) Temperature [96.8-100.4 DegF] 98.2 DegF (03/31/20 7:29 PM) 98.1 DegF (03/31/20 5:25 PM) 98.3 DegF (03/31/20 12:29 PM) Mode of Delivery (Oxygen) Room air (03/31/20 7:29 PM) Room air (03/31/20 5:25 PM) Room air (03/31/20 2:45 PM) Blood pressure sites Arm, left (03/31/20 5:25 PM) Arm, left (03/31/20 2:45 PM) Arm, right (03/31/20 12:29 PM) Temperature Route Oral (03/31/20 7:29 PM) Oral (03/31/20 5:25 PM) Oral (03/31/20 12:29 PM) Dry Weight 85.8 kg (03/31/20 5:25 PM) 85.8 kg (03/31/20 12:50 PM) 85.8 kg (03/31/20 12:29 PM) Weight Obtained Via Standing scale (03/31/20 12:29 PM) Dry Weight Obtained Via Standing scale (03/31/20 12:29 PM) Social History Social History Type Response Smoking Status 10 or more cigarette s (1/2 pack or more)/day in last 30 days entered on: 03/12/20 Sex Female
--- OUTSIDE RECORDS SUMMARY | 2023-08-17 19:42 | XMS_ITS | Continuity of Care Document ---
Author Name Unknown Organization [facility] Adult Address [address] [place] [address]- Care Team Providers Care Store Grocery Merchandiser Name Role Phone Geremias CARMONA, Adeola Prado Primary Care Physician [place] [facility] [place] 12[place]23/22 [facility] [address] [place] [address]- Attending Physician: Not on Staff, Attending MD [...] inactive(oldterm) 2 07/30/09 Given 1Result Comment: [facility] [id number] 2Admin Note: H1N1 Medications cariprazine 1.5 mg oral capsule 1 capsule = 1.5 mg, By Mouth, Daily, # 30 capsule, 1 Refills, Maintenance, 10/13/22 14:22:00 EST, [id number], Partial fill upon patient request if the prescription is for a schedule II opioiddrug., 158, cm, 10/13/22 14:04:00 EST, Height, 64,... Start Date: 10/13/22 Stop Date: 12/12/22 Status: Ordered cephalexin monohydrate 500 mg oral capsule 1 capsule = 500 mg, By Mouth, 4 times a day, for 5 days, # 20 capsule, 0 Refills, Acute 12/26/22 8:22:00 EDT, 12/21/22 8:22:00 EDT, Capsule, Partial fill upon patient request if the prescription is for a schedule II opioid drug. Start Date: 12/21/22 Stop Date: 12/26/22 Status: Ordered cloNIDine 0.1 mg oral tablet 1, tablet, By Mouth, 2 times a day, # 60 tablet, Refills 2, Maintenance, 11/06/22 14:15:00 EST, Route to Pharmacy Electronically, [id number], 158, cm, 10/13/22 14:04:00 EST, Height, 64, kg, 06/07/22 15:44:00 EDT, Dry Weight Start Date: 11/06/22 Stop Date: 12/06/22 Status: Ordered Flonase 50 mcg/inh nasal spray 1 sprays, Nares, Both, 2 times a day, # 16 Gm, 0 Refills, Maintenance, 09/14/22 9:49:00 EST, [place],[facility] #[id number], Partial fill upon patient request if the prescription is for a schedule II opioid drug., 1 sprays Nares, Both 2 times a day,x7 days... Start Date: 09/14/22 Stop Date: 09/21/22 Status: Ordered lamotrigine 25 mg oral tablet 100 mg, 4, tablet, By Mouth, Daily, # 120 tablet, Refills 1, Tot. Refills 1, Maintenance, 10/27/22 15:12:00 EST, Route to Pharmacy Electronically, [facility] #[id number], Partial fill upon patient request if the prescription is for a schedule II opioid drConstantine. Start Date: 10/27/22 Stop Date: 12/26/22 Status: Ordered Problem List Condition Confirmation Course [...] Team Personnel Name: Nat Joe RN Position: [facility] OB RN Member Role: Primary Care Nurse Name: Jo Lim RN Position: [facility] AMB Nurse Member Role: Primary Care Nurse Name: Adeola Archuleta NP Position: [facility] PCO Associate Professional Member Role: PCP Address: Address: [address] [place] [address]- Care Team Related Persons Name: GRADY BEARDEN Address: home [address] [place] [address] Name: NEENA COLE Address: [employer] Address: home [address] [place] [address] [place] Name: GRADY COLE Address: home [phone] [place] [address] Name: LUANNE SUTTON Address: home [address] [place] [address]
--- OUTSIDE RECORDS SUMMARY | 2023-08-17 19:42 | XMS_ITS | Continuity of Care Document ---
Author Name Unknown Organization [facility] Adult Address [address] [place] [address]- Care Team Providers Care Candy Waffle Assembler Name Role Phone Geremias CARMONA, Adeola Prado Primary Care Physician Encounter [facility] Date(s): 08/10/22 - 08/17/22 [facility] Adult [address] [place] [id number]- Encounter Diagnosis Encounter to establish care(Discharge Diagnosis) - 08/10/22 Bipolar affective(Discharge Diagnosis) - 08/10/22 Current tobacco use(Discharge Diagnosis) - 08/10/22 Marijuana smoker(Discharge Diagnosis) - 08/10/22 Subclinical hypothyroidism(Discharge Diagnosis) - 08/10/22 Dermatitis(Discharge Diagnosis) - 08/10/22 Screening for breast cancer(Discharge Diagnosis) - 08/10/22 Depression(Discharge Diagnosis) - 08/10/22 Contraception management(Discharge Diagnosis) - 08/10/22 Attending Physician: Not on Staff, Attending MD [...] H1N1, inactive(oldterm) 2 07/30/09 Given 1Result Comment: [facility] [id number] 2Admin Note: H1N1 Medications cloNIDine 0.1 mg oral tablet 0.2 mg, 2, tablet, By Mouth, Every 12 hours, # 56 tablet, Refills 0, Tot. Refills 0, Maintenance, 08/25/20 13:12:00 EST, Route to Pharmacy Electronically, [facility]/pharmacy #[id number], Partial fill upon patient request, 158, cm, 06/11/20 12:25:00 EDT, Height, 7... Start Date: 08/25/20 Stop Date: 09/08/20 Status: Ordered hydrocortisone 1% topical cream 1 application, Topically, 2 times a day, for 14 days, # 30 Gm, 0 Refills, Acute 08/24/22 9:14:00 EST, 08/10/22 9:14:00 EST, Cream, [facility]/pharmacy #[id number], Partial fill upon patient request if the prescription is for a schedule II opioid drug., 1 applicati... Start Date: 08/10/22 Stop Date: 08/24/22 Status: Ordered KlonoPIN 1 mg oral tablet 1 tablet = 1 mg, By Mouth, 2 times a day, PRN Anxiety, # 8 tablet, 0 Refills, Maintenance, 07/05/2010:05:00 EDT, Tablet, [facility]/pharmacy #[id number], 158, cm, 06/11/20 12:25:00 EDT, Height, 79.1, kg, 07/05/20 9:07:00 EDT, Dry Weight Start Date: 07/05/20 Stop Date: 07/09/20 Status: Ordered LaMICtal 25 mg oral tablet 25 mg, 1, tablet, By Mouth, Daily, # 30 tablet, Refills 0, Tot. Refills 0, Maintenance, 07/05/20 10:06:00 EDT, Route to Pharmacy Electronically, [facility]/pharmacy #[id number], 158, cm, 06/11/20 12:25:00 EDT, Height, 79.1, kg, 07/05/20 9:07:00 EDT, Dry Weight Start Date: 07/05/20 Stop Date: 08/04/20 Status: Ordered Methadone = 150 mg, By Mouth, Daily, [facility], 0 Refills, Maintenance, 01/23/20 13:17:00 EDT, Tablet,Partial fill upon patient request Start Date: 01/23/20 Status: Ordered QUEtiapine 100 mg oral tablet 100 mg, 1, tablet, By Mouth, Daily in AM, # 14 tablet, Refills 0, Tot. Refills 0, Maintenance, 08/25/20 13:11:00 EST, Route to Pharmacy Electronically, [facility]/pharmacy #[id number], Partial fill upon patient request, 158, cm, 06/11/20 12:25:00 EDT, Height, 79.1... Start Date: 08/25/20 Stop Date: 09/08/20 Status: Ordered QUEtiapine 200 mg oral tablet 200 mg, 1, tablet, By Mouth, Daily at bedtime, # 14 tablet, Refills 0, Tot. Refills 0, Maintenance,08/25/20 13:12:00 EST, Route to Pharmacy Electronically, [facility]/pharmacy #[id number], Partial fill upon patient request, 158, cm, 06/11/20 12:25:00 EDT, Height,... Start Date: 08/25/20 Stop Date: 09/08/20 Status: Ordered Problem List Condition Confirmation Course [...] cancer Confirmed Active Contraception management Confirmed Active Cervix, short (affecting ) Confirmed Active Subclinical hypothyroidism Confirmed Active Current tobacco use Confirmed Active 1Hx of anxiety - not managed at present 2Hx of bipolar- not managed at present 3Hx of depression - not managed at present. 4utox 02/13: positive cocaine, marijuana, benzo, opiates, methadone Diagnosis Diagnosis Type Effective Dates Health Status Clinical Service Informant Encounter to establish care Discharge Diagnosis 08/10/22 Bipolar affective Discharge Diagnosis 08/10/22 Current tobacco use Discharge Diagnosis 08/10/22 Marijuana smoker Discharge Diagnosis 08/10/22 Subclinical hypothyroidism Discharge Diagnosis 08/10/22 Dermatitis Discharge Diagnosis 08/10/22 Screening for breast cancer Discharge Diagnosis 08/10/22 Depression Discharge Diagnosis 08/10/22 Contraception management Discharge Diagnosis 08/10/22 Vital Signs Most recent to oldest [Reference Range]: 1 Height 158 cm (08/10/22 8:10 AM) Weight 66.7 kg (08/10/22 8:10 AM) Oxygen Saturation [94-100 %] 96 % (08/10/22 8:10 AM) Pulse Rate [55-90 bpm] 82 bpm (08/10/22 8:10 AM) Body Mass Index [18.5-24.99 kg/m2] 26.72 kg/m2 *H* (08/10/22 8:10 AM) Blood Pressure [90-138/55-84 mm Hg] 110/ 70mm Hg (08/10/22 8:10 AM) Respiratory Rate [16-30 br/min] 18 br/mi n (08/10/22 8:10 AM) Temperature [96.8-100.4 DegF] 98.6 DegF (08/10/22 8:10 AM) Mode of Delivery (Oxygen) Room air (08/10/22 8:10 AM) Blood pressure sites Arm, right (08/10/22 8:10 AM) Temperature Route Temporal (08/10/22 8:10 AM) Weight Obtained Via Standing scale (08/10/22 8:10 AM) Social History Social History Type Response Smoking Status 5-9 cigarettes (betw een 1/4 to 1/2 pack)/day in last 30 days; Interested in cessation: No entered on: 08/10/22 Sex Female Note * Karina Moya: PERFORM, SIGN, VERIFY Event Display: Patient Education/Instruction Authored Date: [facility] Clinical Summary Name LASHANDA RICHTER Age 42 Years 1980 PCP Geremias CARMONA, Adeola Prado PCP Visit Date 08/10/2022 08:08:00 Additional Instructions: Scheduled Appointments?? Future Appointments ?*[facility] ?[address],??[address] ?Phone:??--?Fax:??-- ?Appt. Date:??08/27/2022?9:20 AM ?Scheduled Provider:??Geremias CARMONA, Adeola Prado Follow-Up Instructions ?? Diagnosis Major depressive disorder, single episode, unspecified; Persons encountering health services in other specified circumstances; Cannabis use, unspecified, uncomplicated; Dermatitis, unspecified; Encounter for other screening for malignant neoplasm of breast; Encounter for contraceptive management, un specified; Bipolar disorder, unspecified; Tobacco use; Encounter for other screening for malignant neoplasm of breast; Hypothyroidism, unspecified Medications: Please continue your medications until treatment is completed or stopped by your provider. Discuss any questions related to medications with your provider. New Medications [id number], [id number] [place] [id number], [phone] Hydrocortisone Topical (hydrocortisone 1% topical cream) 1 ros Topically twice a day for 14 Days. Refills: 0. Next Dose: Medications to Continue with No Changes These medications were not printed or sent to your pharmacy Clonazepam (KlonoPIN 1 mg oral tablet) 1 tab(s) Oral twice a day as needed Anxiety for 4 Days. Refills: 0. Next Dose: Clonidine (cloNIDine 0.1 mg oral tablet) 2 tab(s) Oral every 12 hours for 14 Days. Refills: 0. Next Dose: Lamotrigine (LaMICtal 25 mg oral tablet) 1 tab(s) Oral Daily for 30 Days. Refills: 0. Next Dose: Methadone 150 Milligram Oral Daily. [facility]. Next Dose: Quetiapine (QUEtiapine 100 mg oral tablet) 1 tab(s) Oral Daily in the morning for 14 Days. Refills:0. Next Dose: Quetiapine (QUEtiapine 200 mg oral tablet) 1 tab(s) Oral Daily at Bedtime for 14 Days. Refills: 0. Next Dose: Allergy Info:?? Mold Medications Given This Visit Medication Dose Route influenza virus vaccine, inactivated (influenza virus, inactivated vacc) 0.5 mL Intramuscular Future Orders ?CBC? Order Date:08/10/22?- Complete on or after?08/10/22 ?Basic Metabolic Panel? Order Date:08/10/22?- Complete on or after?08/10/22 ?Lipid Panel? Order Date:08/10/22?- Complete on or after?08/10/22 ?TSH with T4 Reflex (Adults Only)? Order Date:08/10/22?- Complete on or after?08/10/22 Vital Signs Height 158 cm Weight 66.7 kg BMI 26.72 kg/m2 Blood Pressure 110 mm Hg/70 mm Hg Temperature 98.6 DegF Pulse Rate 82 bpm Respiratory Rate 18 br/min 02 Sat Mode of Delivery 96 %/Room air You can now view a summary of your hospital visit from the comfort of your home through a free online portal called [employer]. [employer] is a website that allows you to securely view your medical information including discharge summary, medications and follow-up visits. ??You can alsosend a secure electronic message to your doctor???s office to request appointments, renew medications or just ask a question. You can enroll at [email or web address] or register during your next office visit. [...] primary care provider, you may find a [facility] provider by calling [facility] at [phone]. For information about the plan of care [...] Team Personnel Name: Nat Joe RN Position: [facility] OB RN Member Role: Primary Care Nurse Name: Jo Lim RN Position: [facility] AMB Nurse Member Role: Primary Care Nurse Name: Adeola Archuleta NP Position: [facility] PCO Associate Professional Member Role: PCP Address: Address: [address] [place] [address] [address] [place] [address]- Care Team Related Persons Name: SULEIMANGRADY JAIMES Address: home [address] [place] [address] Name: NEENA COLE Address: [place] Address: home [address] [place] [address] [place] Name: GRADY COLE Address: home [phone] [place] [address] Name: LUANNE SUTTON Address: home [address] [place] [address]
--- OUTSIDE RECORDS SUMMARY | 2023-08-17 19:42 | XMS_ITS | Continuity of Care Document ---
Author Name Unknown Organization [facility] ter Address [address] [place] [id number]- Care Team Providers Care Clinic Assistant Name Role Phone Geremias CARMONA, Adeola Prado Primary Care Physician Encounter [facility] Date(s): 01/11/23 - 01/11/[address] [address]- Discharge Disposition: A-D/C Walkout Attending Physician: Not on Staff, Attending MD Admitting Physician: Not on Staff, Admitting MD Referring Physician: Not on Staff, Referring [...] H1N1, inactive(oldterm) 2 07/30/09 Given 1Result Comment: [facility] [id number] 2Admin Note: H1N1 Medications cariprazine 1.5 mg oral capsule 1 capsule = 1.5 mg, By Mouth, Daily, # 30 capsule, 1 Refills, Maintenance, 10/13/22 14:22:00 EST, [facility]/pharmacy #[id number], Partial fill upon patient request if the prescription is for a schedule II opioiddrug., 158, cm, 10/13/22 14:04:00 EST, Height, 64,... Start Date: 10/13/22 Stop Date: 12/12/22 Status: Ordered cloNIDine 0.1 mg oral tablet 1, tablet, By Mouth, 2 times a day, # 60 tablet, Refills 2, Maintenance, 11/06/22 14:15:00 EST, Route to Pharmacy Electronically, [id number], 158, cm, 10/13/22 14:04:00 EST, Height, 64, kg, 06/07/22 15:44:00 EDT, Dry Weight Start Date: 11/06/22 Stop Date: 12/06/22 Status: Ordered Flonase 50 mcg/inh nasal spray 1 sprays, Nares, Both, 2 times a day, # 16 Gm, 0 Refills, Maintenance, 09/14/22 9:49:00 EST, [place],[facility]/pharmacy #[id number], Partial fill upon patient request if the prescription is for a schedule II opioid drug., 1 sprays Nares, Both 2 times a day,x7 days... Start Date: 09/14/22 Stop Date: 09/21/22 Status: Ordered lamotrigine 25 mg oral tablet 100 mg, 4, tablet, By Mouth, Daily, # 120 tablet, Refills 1, Tot. Refills 1, Maintenance, 10/27/22 15:12:00 EST, Route to Pharmacy Electronically, [facility]/pharmacy #[id number], Partial fill upon patient [...] 02/13: positive cocaine, marijuana, benzo, opiates, methadone Vital Signs Most recent to oldest [Reference Range]: 1 Height 155 cm (01/11/23 11:26 PM) Weight 55 kg (01/11/23 11:26 PM) Oxygen Saturation [94-100 %] 98 % (01/11/23 11:26 PM) Pulse Rate [55-90 bpm] 114 bpm *H* (01/11/23 11:26 PM) Body Mass Index [18.5-24.99 kg/m2] 22.89 kg/m2 (01/11/23 11:26 PM) Blood Pressure [90-138/55-84 mm Hg] 168/ 113mm Hg *H* (01/11/23 11:26 PM) Respiratory Rate [16-30 br/min] 18 br/mi n (01/11/23 11:26 PM) Temperature [96.8-100.4 DegF] 98.1 DegF (01/11/23 11:26 PM) Mode of Delivery (Oxygen) Room air (01/11/23 11:26 PM) Temperature Route Oral (01/11/23 11:26 PM) Dry Weight 55 kg (01/11/23 11:26 PM) Weight Obtained Via Patient/family state d (01/11/23 11:26 PM) Dry Weight Obtained Via Patient/family s tated (01/11/23 11:26 PM) Social History Social History Type Response Smoking Status 5-9 cigarettes (betw een 1/4 to 1/2 pack)/day in last 30 days; Interested in cessation: No entered on: 08/10/22 Sex Female Patient Care team information Care Team Personnel Name: Nat Joe RN Position: [facility] OB RN Member Role: Primary Care Nurse Name: Carina VALERIO, Jo De Los Santos Position: [facility] AMB Nurse Member Role: Primary Care Nurse Name: Adeola Archuleta NP Position: [facility] PCO Associate Professional Member Role: PCP Address: Address: [address] [place] [address]- [place] Care Team Related Persons Name: GRADY BEARDEN Address: home [address] [place] [address] Name: ELAINE COLEING Address: [place] Address: home [address] [place] [address] [place] Name: GRADY COLE Address: home [phone] [place] [address] Name: LUANNE SUTTON Address: home [address] [place] [address]
--- OUTSIDE RECORDS SUMMARY | 2023-08-17 19:42 | XMS_ITS | Continuity of Care Document ---
Author Name Unknown Organization [facility] Adult Address [address] [place] [address]- Care Team Providers Care Predatory Animal Exterminator Name Role Phone Geremias CARMONA, Adeola Prado Primary Care Physician Encounter [facility] Date(s): 07/16/22 - 08/15/22 [facility] [address] [place] [address]- Allergies, Adverse Reactions, Alerts Substance Reaction Severity [...] H1N1, inactive(oldterm) 2 07/30/09 Given 1Result Comment: [facility] [id number] 2Admin Note: H1N1 Medications cloNIDine 0.1 mg oral tablet 0.2 mg, 2, tablet, By Mouth, Every 12 hours, # 56 tablet, Refills 0, Tot. Refills 0, Maintenance, 08/25/20 13:12:00 EST, Route to Pharmacy Electronically, [facility]/pharmacy #[id number], Partial fill upon patient request, 158, cm, 06/11/20 12:25:00 EDT, Height, 7... Start Date: 08/25/20 Stop Date: 09/08/20 Status: Ordered hydrocortisone 1% topical cream 1 application, Topically, 2 times a day, for 14 days, # 30 Gm, 0 Refills, Acute 08/24/22 9:14:00 EST, 08/10/22 9:14:00 EST, Cream, [facility]/pharmacy #[id number], Partial fill upon patient request if the prescription is for a schedule II opioid drug., 1 applicati... Start Date: 08/10/22 Stop Date: 08/24/22 Status: Ordered KlonoPIN 1 mg oral tablet 1 tablet = 1 mg, By Mouth, 2 times a day, PRN Anxiety, # 8 tablet, 0 Refills, Maintenance, 07/05/2010:05:00 EDT, Tablet, [facility]/pharmacy #[id number], 158, cm, 06/11/20 12:25:00 EDT, Height, 79.1, kg, 07/05/20 9:07:00 EDT, Dry Weight Start Date: 07/05/20 Stop Date: 07/09/20 Status: Ordered LaMICtal 25 mg oral tablet 25 mg, 1, tablet, By Mouth, Daily, # 30 tablet, Refills 0, Tot. Refills 0, Maintenance, 07/05/20 10:06:00 EDT, Route to Pharmacy Electronically, [facility]/pharmacy #[id number], 158, cm, 06/11/20 12:25:00 EDT, Height, 79.1, kg, 07/05/20 9:07:00 EDT, Dry Weight Start Date: 07/05/20 Stop Date: 08/04/20 Status: Ordered Methadone = 150 mg, By Mouth, Daily, [facility][note 3], 0 Refills, Maintenance, 01/23/20 13:17:00 EDT, Tablet,Partial fill upon patient request Start Date: 01/23/20 Status: Ordered QUEtiapine 100 mg oral tablet 100 mg, 1, tablet, By Mouth, Daily in AM, # 14 tablet, Refills 0, Tot. Refills 0, Maintenance, 08/25/20 13:11:00 EST, Route to Pharmacy Electronically, [facility]/pharmacy #[id number], Partial fill upon patient request, 158, cm, 06/11/20 12:25:00 EDT, Height, 79.1... Start Date: 08/25/20 Stop Date: 09/08/20 Status: Ordered QUEtiapine 200 mg oral tablet 200 mg, 1, tablet, By Mouth, Daily at bedtime, # 14 tablet, Refills 0, Tot. Refills 0, Maintenance,08/25/20 13:12:00 EST, Route to Pharmacy Electronically, [facility]/pharmacy #[id number], Partial fill upon patient [...] Associate Professional Member Role: PCP Address: Address: [address] [place] [address] [address] [place], [place] [address] Care Team Related Persons Name: GRADY BEARDEN Address: home [address] [place] [address] Name: ELAINE COLEALICIA Address: [place] Address: home [address] [place] [address] [place] Name: GRADY COLE Address: home [phone] [place] [address] Name: LUANNE SUTTON Address: home [address] [place] [address]
--- OUTSIDE RECORDS SUMMARY | 2023-08-17 19:42 | XMS_ITS | Continuity of Care Document ---
Author Name Unknown Organization [facility] Address [address] [place] [address]- Care Team Providers Care Editing Intern Name Role Phone Bharath CRANE, Sarina Biggs Primary Care Physician [phone] Encounter [facility] Date(s): 08/11/19 - 09/13/[address] [address]- [facility] Attending Physician: Not on Staff, Attending MD Allergies, Adverse Reactions, Alerts Substance Reaction Severity Status NKA Active Immunizations Given and Recorded Vaccine Date Status Refusal Reason tetanus/diphtheria/pertussis, acel(Tdap) 07/03/19 Given tetanus/diphtheria/pertussis, acel(Tdap) 12/19/15 Given tetanus/diphtheria/pertussis, acel(Tdap) 01/20/11 Given influenza virus vaccine, inactivated 06/27/19 Give n influenza virus vaccine, inactivated 11/05/15 Give n influ virus vac, H1N1, inactive(oldterm) 1 07/30/09 Given 1Admin Note: H1N1 Medications acetaminophen 325 mg oral tablet 650 mg, By Mouth, Every 4 hours, PRN, not to exceed 4000 mg/day, # 50 tablet, Refills 0, Tot. Refills 0, Maintenance, Pain , Mild, 07/30/19 7:41:22 EST, Route to Pharmacy Electronically, [id number], [facility] Start Date: 07/30/19 Status: Ordered cloNIDine 0.1 mg oral tablet See Instructions, Take 1 tab po qam in the afternoon and take 2 tabs qhs. pt aware of med r/b in , # 120 tablet, Refills 1, Tot. Refills 1, Maintenance, 07/06/19 13:49:03 EDT, Instructions Replace Required Details, Route to Pharmacy Electroni... Start Date: 07/06/19 Status: Ordered docusate sodium 100 mg oral capsule 1 capsule = 100 mg, By Mouth, 2 times a day, # 60 capsule, 0 Refills, Maintenance, 07/30/19 7:42:33EST, Capsule Start Date: 07/30/19 Status: Ordered ibuprofen 800 mg oral tablet 800 mg, By Mouth, Every 8 hours, PRN, # 30 tablet, Refills 0, Tot. Refills 0, Maintenance, Pain , Moderate, 07/30/19 7:42:35 EST, Route to Pharmacy Electronically, [id number], [facility] Start Date: 07/30/19 Status: Ordered LORazepam 0.5 mg oral tablet See Instructions, please cancel any other lorazepam scripts on file from Dr. Loera. Pt will transition to new psychiatrist., # 10 tablet, 0 Refills, Maintenance, 08/23/19 13:34:56 EST Start Date: 08/23/19 Status: Ordered magnesium citrate 8.85% oral liquid 300 mL = 17.45 Gm, By Mouth, Daily, Hold for diarrhea, # 10 Doses, 0 Refills, Soft Stop, 08/11/19 15:50:52 EST, Solution Start Date: 08/11/19 Stop Date: 08/25/19 Status: Ordered methadone 10 mg/5 mL oral solution 77.5 mL = 155 mg, By Mouth, Daily before breakfast, 0 Refills, Maintenance, 07/30/19 7:42:11 EST, Solution, Partial fill upon patient request Start Date: 07/30/19 Status: Ordered Nicotine = 21 mg, Topically, Daily, 0 Refills, Maintenance, 07/30/19 7:43:02 EST, Patch Start Date: 07/30/19 Status: Ordered Nicotine Gum 2 mg, Chew, Every hour, PRN, Nicotine Cravings, Refills 0, Maintenance, Other, 07/30/19 7:43:00 EST Start Date: 07/30/19 Status: Ordered NIFEdipine 30 mg oral tablet, extended release 30 mg, By Mouth, Daily, # 30 tablet, Refills 0, Tot. Refills 0, Maintenance, 08/11/19 15:50:54 EST,Route to Pharmacy Electronically, [id number], [facility] Start Date: 08/11/19 Stop Date: 09/10/19 Status: Ordered Multivitamins with Vitamin B Complex, Vitamin C, Minerals and L- Methylfolate oral capsule 1 capsule, By Mouth, Daily, # 30 capsule, 1 Refills, Maintenance, 08/07/19 15:08:56 EST, Capsule, 1capsule By Mouth Daily Start Date: 08/07/19 Status: Ordered SEROquel 100 mg oral tablet See Instructions, take 1 tab po in the afternoon. take 1 tab at hs with 200 mg tab (total 300 mg qhs)., # 60 tablet, Refills 0, Tot. Refills 0, Maintenance, 08/07/19 16:48:44 EST, Instructions Replace Required Details, Route to Pharmacy Electronically... Start Date: 08/07/19 Status: Ordered SEROquel 200 mg oral tablet 200 mg, 1, tablet, By Mouth, Daily at bedtime, take with one 100 mg tab qhs po for total of 300 mg qhs., # 30 tablet, Refills 1, Tot. Refills 1, Maintenance, 08/07/19 15:08:07 EST, Route to Pharmacy Electronically, [id number]_[id number], [facility]... Start Date: 08/07/19 Status: Ordered Vistaril pamoate 25 mg oral capsule 1 capsule = 25 mg, By Mouth, 4 times a day, PRN for anxiety, pt aware of med r/b in , # 120 capsule, 1 Refills, Maintenance, 07/06/19 13:51:16 EDT, Capsule Start Date: 07/06/19 Status: Ordered Vraylar 4.5 mg oral capsule 1 capsule = 4.5 mg, By Mouth, Daily, pt aware risks/benefits of taking this in , # 30 capsule, 1 Refills, Maintenance, 07/06/19 13:48:49 EDT Start Date: 07/06/19 Status: Ordered Problem List Condition Effective Dates Status Health Status Inform ant Anxiety(Confirmed) 1 Active Bipolar affective(Confirmed) 2 Active Marijuana smoker(Confirmed) Active Constipation(Confirmed) Active Depression(Confirmed) 3 Active Dysphagia(Confirmed) Active Frequent headaches(Confirmed) Active 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 Social History Social History Type Response Smoking Status Current every day sm oker; Other: 5 ciggerattes a day; entered on: 10/15/15 Sex Female
--- OUTSIDE RECORDS SUMMARY | 2023-08-17 19:42 | XMS_ITS | Continuity of Care Document ---
Author Name Unknown Organization [facility] ter Address [address] [place] [address]- Care Team Providers Care Cone Picker Name Role Phone Bharath CRANE, Sarina Biggs Primary Care Physician Encounter [facility] [place] Date(s): 02/11/20 - 02/11/[address] [address]- [place] Encounter Diagnosis Alcohol withdrawal(Final) - 02/11/20 Discharge Disposition: A-D/C Home Attending Physician: Bill Rowe MD Admitting Physician: Bill Rowe MD Referring Physician: Not on Staff, Referring [...] tablet, By Mouth, 2 times a day, PRN, # 60 tablet, Refills 0, Tot. Refills 0, Maintenance, Anxiety, 02/05/20 18:58:00 EDT, Route to Pharmacy Electronically, [facility]/pharmacy #[id number], 155, cm, 02/05/20 17:26:00 EDT, Height, 83.5, kg, 01/31/20 14:4... Start Date: 02/05/20 Status: Ordered hydrOXYzine pamoate 50 mg oral capsule = 50 mg, By Mouth, 2 times a day, PRN Anxiety, # 60 capsule, 0 Refills, Maintenance, 02/05/20 18:58:00 EDT, Capsule, [facility]/pharmacy #[id number], 155, cm, 02/05/20 17:26:00 EDT, Height, 83.5, kg, 01/31/20 14:48:00 EDT, Dry Weight Start Date: 02/05/20 Status: Ordered lamotrigine 25 mg oral tablet 25 mg, 1, tablet, By Mouth, Daily, # 30 tablet, Refills 0, Tot. Refills 0, Maintenance, 02/05/20 19:05:00 EDT, Route to Pharmacy Electronically, [facility]/pharmacy #[id number], 155, cm, 02/05/20 17:26:00 EDT, Height, 83.5, kg, 01/31/20 14:48:00 EDT, Dry Weight Start Date: 02/05/20 Status: Ordered Methadone = 155 mg, By Mouth, Daily, 0 Refills, Maintenance, 01/23/20 13:17:00 EDT, Tablet, Partial fill uponpatient request Start Date: 01/23/20 Status: Ordered QUEtiapine 200 mg oral tablet 200 mg, 1, tablet, By Mouth, Daily at bedtime, # 30 tablet, Refills 0, Tot. Refills 0, Maintenance,02/05/20 18:59:00 EDT, Route to Pharmacy Electronically, [facility]/pharmacy #[id number], 155, cm, 02/05/20 17:26:00 EDT, Height, 83.5, kg, 01/31/20 14:48:00 EDT, D... Start Date: 02/05/20 Status: Ordered QUEtiapine 50 mg oral tablet 1 tablet = 50 mg, By Mouth, Daily, PRN Agitation, # 30 tablet, 0 Refills, Maintenance, 02/05/20 19:05:00 EDT, Tablet, [facility]/pharmacy #[id number], 155, cm, 02/05/20 17:26:00 EDT, Height, 83.5, kg, 01/31/20 14:48:00 EDT, Dry Weight Start Date: 02/05/20 Status: Ordered Problem List Condition Effective Dates [...] methadone 592mg daily - [facility] Vital Signs Most recent to oldest [Reference Range]: 1 2 3 Weight 82.2 kg (02/11/20 3:04 PM) 82.2 kg (02/11/20 1:20 PM) 82.2 kg (02/11/20 12:27 PM) Oxygen Saturation [94-100 %] 98 % (02/11/20 3:04 PM) 100 % (02/11/20 1:20 PM) 99 % (02/11/20 12:27 PM) Pulse Rate [55-90 bpm] 86 bpm (02/11/20 3:04 PM) 89 bpm (02/11/20 1:20 PM) 92 bpm *H* (02/11/20 12:27 PM) Blood Pressure [90-138/55-84 mm Hg] 105/48mm Hg (02/11/20 3:04 PM) 108/62mm Hg (02/11/20 1:20 PM) 117/63mm Hg (02/11/20 12:27 PM) Respiratory Rate [16-30 br/min] 12 br/min *L* (02/11/20 3:04 PM) 13 br/min *L* (02/11/20 1:20 PM) 14 br/min *L* (02/11/20 1:16 PM) Temperature [96.8-100.4 DegF] 97.6 DegF (02/11/20 11:11 AM) Mode of Delivery (Oxygen) Room air (02/11/20 3:04 PM) Room air (02/11/20 1:20 PM) Room air (02/11/20 12:27 PM) Blood pressure sites Arm, left (02/11/20 3:04 PM) Arm, left (02/11/20 1:20 PM) Arm, left (02/11/20 12:27 PM) Temperature Route Oral (02/11/20 11:11 AM) Dry Weight 82.2 kg (02/11/20 3:04 PM) 82.2 kg (02/11/20 1:20 PM) 82.2 kg (02/11/20 12:27 PM) Weight Obtained Via Standing scale (02/11/20 11:11 AM) Dry Weight Obtained Via Standing scale (02/11/20 11:11 AM) Social History Social History Type Response Smoking Status Current every day sm vinnie; Other: 5 ciggerattes a day; entered on: 10/15/15 Sex Female
--- OUTSIDE RECORDS SUMMARY | 2023-08-17 19:42 | XMS_ITS | Continuity of Care Document ---
Author Name Unknown Organization [facility] Adult Address [address] [place] [address]- Care Team Providers Care Drug Abuse Treatment Specialist Name Role Phone Geremias CARMONA, Adeola Prado Primary Care Physician Encounter [facility] [place] Date(s): 08/13/22 - 09/12/22 [facility] [address] [place] [address]- Allergies, Adverse Reactions, Alerts Substance Reaction Severity [...] H1N1, inactive(oldterm) 2 07/30/09 Given 1Result Comment: [facility] [id number] 2Admin Note: H1N1 Medications cloNIDine 0.1 mg [...] 10/22/22 9:56:00 EST, 08/27/22 9:56:00 EST, Cream, [facility]/pharmacy#[id number], Partial fill upon patient request if the pre... Start Date: 08/27/22 Stop Date: 10/22/22 Status: Ordered KlonoPIN 1 mg oral tablet 1 tablet = 1 mg, By Mouth, 2 times a day, PRN Anxiety, # 8 tablet, 0 Refills, Maintenance, 07/05/2010:05:00 EDT, Tablet, [facility]/pharmacy #[id number], 158, cm, 06/11/20 12:25:00 EDT, [...] Methadone = 150 mg, By Mouth, Daily, [facility], 0 Refills, Maintenance, 01/23/20 13:17:00 EDT, [...] Team Personnel Name: Nat Joe RN Position: [facility] OB RN Member Role: Primary Care Nurse Name: Jo Lim RN Position: [facility] AMB Nurse Member Role: Primary Care Nurse Name: Adeola Archuleta NP Position: [facility] PCO Associate Professional Member Role: PCP Address: Address: [address] [place] [address]- Care Team Related Persons Name: GRADY BEARDEN Address: home [address] [place] [address] Name: KELSEY NEENA Address: [place] Address: home [address] [place] [address] [place] Name: GRADY COLE Address: home [phone] [place] [address] Name: LUANNE SUTTON Address: home [address] [place] [address]
--- OUTSIDE RECORDS SUMMARY | 2023-08-17 19:42 | XMS_ITS | Continuity of Care Document ---
Author Name Unknown Organization [facility] Address [address] [place] [address]- Care Team Providers Care Toll Test Worker Name Role Phone Reese CRANE, Susan Thornton Primary Care Physic fox Encounter [facility] [place] Date(s): 02/26/23 - 02/26/[address] [address]- Encounter Diagnosis Patient left without being seen(Final) - 02/26/23 Discharge Disposition: A-D/C Walkout Attending Physician: Rodney Pollard MD Admitting Physician: Rodney Pollard MD Referring Physician: Not on Staff, Referring [...] H1N1, inactive(oldterm) 2 07/30/09 Given 1Result Comment: [facility] [id number] 2Admin Note: H1N1 Medications Flonase 50 mcg/inh nasal spray 2 sprays = 100 mcg, Nares, Both, Daily, # 15.8 mL, 0 Refills, Maintenance, 01/20/23 10:07:00 EDT, Nasal [place], [id number], Partial fill upon patient request if the prescription is fora schedule II opioid drug., 2 sprays Nares, Both Da... Start Date: 01/20/23 Status: Ordered hydrOXYzine pamoate 50 mg oral capsule = 50 mg, By Mouth, 2 times a day, PRN Anxiety, # 60 capsule, 2 Refills, Maintenance, 01/20/23 10:15:00 EDT, Capsule, [facility] #[id number], Partial fill upon patient request if the [...] 01/20/23 10:10:00 EDT, Route to Pharmacy Electronically, [facility] #[id number], Partial fill upon patient request if the [...] Maintenance,01/20/23 10:19:00 EDT, Route to Pharmacy Electronically, [facility] #[id number], Partial fill upon patient request if the prescription is for a mary... Start Date: 01/20/23 Status: Ordered SEROquel 100 mg oral tablet 100 mg, 1, tablet, By Mouth, Daily at bedtime, # 30 tablet, Refills 2, Tot. Refills 2, Maintenance,01/20/23 10:11:00 EDT, Route to Pharmacy Electronically, [facility] #[id number], Partial fill upon patient request if the [...] Team Personnel Name: Cholo Power RN Position: [facility] RN Member Role: Primary Care Nurse Name: Morena Mcgraw RN Position: [facility] RN Member Role: Primary Care Nurse Name: Maggy Porter RN Position: [facility] RN Member Role: Primary Care Nurse Name: Nat Joe RN Position: [facility] OB RN Member Role: Primary Care Nurse Name: Klaudia Almanzar RN Position: [facility] RN Member Role: Primary Care Nurse Name: Jo Lim RN Position: [facility] AMB Nurse Member Role: Primary Care Nurse Name: Susan Leigh MD Position: [facility] General Pediatrics MD Member Role: PCP Address: Address: [address] [place] [id number]- Name: Rodney Pollard MD Position: [facility] ED Medicine MD Member Role: Admitting Physician Address: Address: [address] [facility] [place] [address]- [place] Care Team Related Persons Name: GRADY BEARDEN Address: home [address] [place] [address] Name: COLEELAINEING Address: [place] Address: home [address] [place] [address] Name: GRDAY COLE Address: home [phone] [place] [address] Name: LUANNE SUTTON Address: home [address] [place] [address]
--- OUTSIDE RECORDS SUMMARY | 2023-08-17 19:42 | XMS_ITS | Continuity of Care Document ---
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 [id number] 2Admin Note: H1N1 Medications Dilaudid 2 mg oral tablet 2 tablet = 4 mg, By Mouth, Every 4 hours, PRN Pain , Moderate, # 42 tablet, 0 Refills, Acute 02/12/23 19:11:00 EDT, 02/03/23 19:10:00 EDT, Tablet, [facility]/pharmacy #[id number], Partial fill upon patient request if the prescription is for a schedule II opioid dr... Start Date: 02/03/23 Stop Date: 02/12/23 Status: Ordered Dilaudid 2 mg oral tablet 4 mg, Tablet, By Mouth, Every 4 hours, PRN for Pain , Moderate, Routine, 02/03/23 10:30:00 EDT Start Date: 02/03/23 Stop Date: 02/04/23 Status: Discontinued Flonase 50 mcg/inh nasal spray 2 sprays = 100 mcg, Nares, Both, Daily, # 15.8 mL, 0 Refills, Maintenance, 01/20/23 10:07:00 EDT, Nasal [place], [id number], Partial fill upon patient request if the prescription is fora schedule II opioid drug., 2 sprays Nares, Both Da... Start Date: 01/20/23 Status: Ordered hydrOXYzine pamoate 50 mg oral capsule = 50 mg, By Mouth, 2 times a day, PRN Anxiety, # 60 capsule, 2 Refills, Maintenance, 01/20/23 10:15:00 EDT, Capsule, [id number], Partial fill upon patient request if the prescription is for a schedule II opioid drug., 155, cm, 01/19/23... Start Date: 01/20/23 Status: Ordered ibuprofen 400 mg oral tablet 400 mg, Tablet, By Mouth, 3 times a day, PRN for Pain , Mild, Routine, 02/03/23 10:30:00 EDT Start Date: 02/03/23 Stop Date: 02/04/23 Status: Discontinued lamotrigine 25 mg oral tablet TAKE 1 TABLET BY MOUTH DAILY IN THE MORNING Start Date: 02/03/23 Status: Ordered lidocaine 5% topical film 2, Topically, Daily, for 15 days, # 30 patch, 0 Refills, Acute 02/04/23 10:09:00 EDT, 01/20/23 10:09:00 EDT, Patch, [id number], Partial fill upon patient request if the prescription is for a schedule II opioid drug., 2 Topically Daily,... Start Date: 01/20/23 Stop Date: 02/04/23 Status: Ordered loratadine 10 mg oral tablet 10 mg, 1, tablet, By Mouth, Daily, # 30 tablet, Refills 0, Tot. Refills 0, Maintenance, 01/20/23 10:10:00 EDT, Route to Pharmacy Electronically, [facility] #[id number], Partial fill upon patient request if the [...] Maintenance,01/20/23 10:19:00 EDT, Route to Pharmacy Electronically, [facility] #[id number], Partial fill upon patient request if the prescription is for a mary... Start Date: 01/20/23 Status: Ordered SEROquel 100 mg oral tablet 100 mg, 1, tablet, By Mouth, Daily at bedtime, # 30 tablet, Refills 2, Tot. Refills 2, Maintenance,01/20/23 10:11:00 EDT, Route to Pharmacy Electronically, [facility] #[id number], Partial fill upon patient request if the [...] 02/13: positive cocaine, marijuana, benzo, opiates, methadone Procedures Procedure Date Related Diagnosis Body Site Status Open treatment of acute or c hronic elbow dislocation 1 02/03/23 Completed 1Skeletal dynamics IJ S internal fixator Results Radiology Reports * Exam Date Time Procedure Performing Provider Status 02/03/23 9:24 AM C-Arm > 1 Hour Jacquelin Owens; Auth (Verified) Notes: (C-Arm > 1 Hour) Reason For Exam: l elbow dislocation RESULT: C-Arm > 1 Hour Elbow Min 3 Views Left, C-Arm > 1 Hour INDICATION: Reason: l elbow dislocation COMPARISONS: Radiograph 01/21/2023. TECHNIQUE: Fluoroscopy support was provided. There was no radiologist in attendance. FLUOROSCOPY TIME: 56 seconds EXPOSURE: .5481 Gycm2 TECHNOLOGIST TIME: 1 hour 10 minutes FINDINGS: 10 intraoperative fluoroscopic spot images during ORIF of a proximal ulna and/or distal humerus fracture IMPRESSION: See above. I have personally reviewed the images and I agree with this report. WSN: [id number] Ordering Physician: Josh Acosta MD Dictated By: Ariel Becker MD Dictated Date/Time: 02/03/23 9:50 am Reviewed By: Anthony Pollock MD Signed By: Anthony Pollock MD Signed Date/Time: 02/03/23 9:55 am Transcribed By: MIRANDA Transcribed Date/Time: 02/03/23 9:33 am * Exam Date Time Procedure Performing Provider Status 02/03/23 9:24 AM Elbow Min 3 Views Left Lashanda Owens; Auth (Verified) Notes: (Elbow Min 3 Views Left) Reason For Exam: l elbow dislocation RESULT: Elbow Min 3 Views Left Elbow Min 3 Views Left, C-Arm > 1 Hour INDICATION: Reason: l elbow dislocation COMPARISONS: Radiograph 01/21/2023. TECHNIQUE: Fluoroscopy support was provided. There was no radiologist in attendance. FLUOROSCOPY TIME: 56 seconds EXPOSURE: .5481 Gycm2 TECHNOLOGIST TIME: 1 hour 10 minutes FINDINGS: 10 intraoperative fluoroscopic spot images during ORIF of a proximal ulna and/or distal humerus fracture IMPRESSION: See above. I have personally reviewed the images and I agree with this report. WSN: [id number] Ordering Physician: Josh Acosta MD Dictated By: Ariel Becker MD Dictated Date/Time: 02/03/23 9:50 am Reviewed By: Anthony Pollock MD Signed By: Anthony Pollock MD Signed Date/Time: 02/03/23 9:55 am Transcribed By: MIRANDA Transcribed Date/Time: 02/03/23 9:33 am Vital Signs Most recent to oldest [Reference Range]: 1 2 3 Height 154.94 cm (02/03/23 7:15 PM) 154.94 cm (02/03/23 3:33 PM) 154.94 cm (02/03/23 1:19 PM) Weight 61.82 kg (02/03/23 7:07 AM) 61.82 kg (01/29/23 3:57 PM) Oxygen Saturation [94-100 %] 100 % (02/03/23 7:15 PM) 100 % (02/03/23 3:33 PM) 97 % (02/03/23 1:19 PM) Pulse Rate [55-90 bpm] 101 bpm *H* (02/03/23 7:15 PM) 72 bpm (02/03/23 3:33 PM) 79 bpm (02/03/23 1:19 PM) Body Mass Index [18.5-24.99 kg/m2] 25.75 kg/m2 *H* (02/03/23 7:07 AM) 25.75 kg/m2 *H* (01/29/23 3:57 PM) Blood Pressure [90-138/55-84 mm Hg] 155/101mm Hg *H* (02/03/23 7:15 PM) 160/109mm Hg *H* (02/03/23 3:33 PM) 151/106mm Hg *H* (02/03/23 1:19 PM) Respiratory Rate [16-30 br/min] 18 br/min (02/03/23 7:15 PM) 17 br/min (02/03/23 5:25 PM) 18 br/min (02/03/23 5:02 PM) Temperature [96.8-100.4 DegF] 97.6 DegF (02/03/23 7:15 PM) 98.0 DegF (02/03/23 3:33 PM) 98.0 DegF (02/03/23 1:19 PM) Liters per Minute 2 L/min (02/03/23 10:15 AM) 6 L/min (02/03/23 10:00 AM) Mode of Delivery (Oxygen) Room air (02/03/23 7:15 PM) Room air (02/03/23 3:33 PM) Room air (02/03/23 1:19 PM) Blood pressure sites Arm, right (02/03/23 7:15 PM) Arm, right (02/03/23 3:33 PM) Arm, right (02/03/23 1:19 PM) Temperature Route Oral (02/03/23 7:15 PM) Oral (02/03/23 3:33 PM) Oral (02/03/23 1:19 PM) Dry Weight 66.7 kg (02/03/23 7:07 AM) 61.82 kg (01/29/23 3:57 PM) Weight Obtained Via Patient/family state d (01/29/23 3:57 PM) Dry Weight Obtained Via Standing scale (02/03/23 7:07 AM) Patient/family stated (01/29/23 3:57 PM) Social History Social History Type Response Smoking Status 5-9 cigarettes (betw een 1/4 to 1/2 pack)/day in last 30 days; Interested in cessation: No entered on: 08/10/22 Sex Hospital Progress note * Mckenzie Regan RN: PERFORM, SIGN, VERIFY Event Display: Progress Note Hospital Authored Date: [id number] Patient: LASHANDA RICHTER Age: 42 years Sex: Female : 1980 Associated Diagnoses: None Author: Mckenzie Regan RN Findings Evaluation pt received a+o x 4, wanted to go home, Dr kim and discharge instructions given, IV removed left with company of . Discharge Information Case Management Discharge Plan : Case Management Discharge Plan Data 02/03/2023 20:03 EDT Discharge Level of Care at Discharge Home/Long-Term/Foster Care 01/30/2023 0:55 EDT Discharge Level of Care at Discharge Home/Long-Term/Foster Care Note * Mckenzie Regan RN: PERFORM Event Display: Discharge/Transfer Note Hospital Authored Date: [id number] Nursing Discharge Note Entered On: 02/03/2023 20:04 EDT Performed On: 02/03/2023 20:03 EDT by Mckenzie Regan RN Nursing Discharge Note 2 Discharge Time : 02/03/2023 19:35 EDT Discharge Level of Care at Discharge : Home/Long-Term/Foster Care Patient Left Unit Via : Ambulatory Patient Accompanied Off Unit with : Significant other DC Instructions Provided & Signed by Pt : Yes Patient Understands D/C Instructions : Yes Patient Instructions Discharge Signed : Yes Did Pt have Specialty Bed or Wound Vac : No Mckenzie Regan RN - 02/03/2023 20:03 EDT * Mckenzie Regan RN: PERFORM Event Display: Patient Education/Instruction Authored Date: [id number] Inpatient Adult Discharge Instructions [address] [address] Name: LASHANDA RICHTER : 1980 Visit: 02/03/2023 05:38:00 Current Date: 02/03/2023 19:20 Account: [id number] Inpatient Adult Discharge Instructions We would like to thank you for allowing us to assist you with your healthcare needs. The following includes patient education materials and information regarding your injury/illness. Our entire staffstrives to provide an excellent experience for our patients and their families. PLEASE ENSURE YOU FOLLOW-UP PER THE INSTRUCTIONS BELOW! ?? YOUR OPINION IS IMPORTANT TO US! Please complete the survey you may receive by mail or email. Your feedback will be used to make improvements to the healthcare experiences of our patients and their families. Surveys are administered by [employer] ?? If further treatment with your primary care physician or another doctor is recommended, it is important for you to keep the appointment. Call your primary care physician or return to the Emergency Department immediately if your condition worsens, fails to improve, or new symptoms develop. If you need to find a doctor, you can call [facility] for a referral at [phone] or toll free at [phone] or log in to [email or web address].. ?? You can view and manage your care through the patient portal or by using a health care ros of your choosing. [employer] is a website that allows you to securely view your medical information including your hospital discharge summary, office visit summaries, medications and follow-up visits. You can also request appointments, renew medications, and request access to your medical information using a health care ros of your choosing, or just ask a question. You can enroll at [email or web address] or register during your next office visit. You have been discharged from [facility], Patient Care Unit: D3B. If you have any questions regarding these instructions after you leave, please call us and we will be happy to assist you. [facility] Your Care Team Attending Physician Dave CRANE, Josh Discharging Providers Dafne Mitchell Reason for Your Visit LEFT ELBOW RECURRANT DISLOCATION 23OVN Your Diagnosis Recurrent dislocation of left elbow Tests Performed Below is a partial list of the tests performed during your hospitalization. You may have had other tests and procedures not included in this list. Please discuss all test results with your provider. XR C-Arm > 1 Hour XR Elbow Min 3 Views Left Primary Care Provider Geremias CARMONA, Adeola Prado Advance Directive . Discharge Vitals Temperature: 97.6 DegF Height: 154.94 cm Pulse Rate:??101 bpm??High Weight: 61.82 kg Respiratory Rate: 18 br/min Body Mass Index:??25.75 kg/m2??High Systolic Blood Pressure:??155 mm Hg??High Body surface area: 1.63 Diastolic Blood Pressure:??101 mm Hg??High ?? Oxygen Saturation: 100 % ?? Studies Pending All tests and labs ordered during this hospital stay have been completed unless listed below. Please discuss all pending results with your provider listed above in these instructions. ?? No incomplete studies found What to do next Instructions From Your Doctor Discharge Orders Discharge Medications LASHANDA RICHTER :1980 Visit Date:02/03/2023 Medications: Please continue your medications until treatment is completed or stopped by your provider. Medications not listed below should be discontinued. Discuss any questions related to medications with your provider. What How Much When Instructions Next Dose New Hydromorphone (Dilaudid 2 mg oral tablet) 2 tab(s) Oral Every 4 hours as needed for Pain , Moderate Pickup at [facility]/pharmacy #[id number] tonight Unchanged Fluticasone Nasal (Flonase 50 mcg/ inh nasal spray) 2 spray(s) Nares, Both Daily tomorrow Unchanged HydrOXYzine (hydrOXYzine pamoate 50 mg oral capsule) 50 Milligram Oral Twice a day as needed for Anxiety tonight Unchanged Lamotrigine (lamotrigine 25 mg oral tablet) TAKE 1 TABLET BY MOUTH DAILY IN THE MORNING ?? tomorrow Unchanged Lidocaine Topical (lidocaine 5% topical film) 2 Topically Daily Duration: 15 Days tomorrow Unchanged Loratadine (loratadine 10 mg oral tablet) 1 tab(s) Oral Daily tomorrow Unchanged Oxycodone (oxyCODONE 5 mg oral capsule) 1 capsule Oral Every 6 hours tonight Unchanged Prazosin (prazosin 1 mg oral capsule) 1 capsule Oral Daily at Bedtime tonight Unchanged Quetiapine (SEROquel 100 mg oral tablet) 1 tab(s) Oral Daily at Bedtime tonight Pharmacy Information [facility]/pharmacy #[id number]: [address], [place] [id number] [phone] Test Results Below is a partial list of the most recent Laboratory test results done prior to this discharge. You may have had other tests and procedures not included in this list. Please discuss all test resultswith your provider. Allergies (NKA means No Known Allergies) Mold??(HEADACHE, BREATHING ISSUES) Problems Active Problems??(26) Anxiety?? Benzodiazepine abuse?? Bipolar affective?? Cervix, short (affecting )?? Constipation?? Contraception management?? Current tobacco use?? Depression?? Dermatitis?? Drug abuse during ?? Dysphagia?? Encounter to establish care?? Frequent headaches?? GBS carrier?? GERD (gastroesophageal reflux disease)?? H/O delivery, currently ?? History of opioid abuse?? Homeless?? Hx of trauma in childhood?? Low grade [employer]?? Marijuana smoker?? MDD (major depressive disorder), recurrent severe, without psychosis?? PTSD (post-traumatic stress disorder)?? Screening for breast cancer?? Sinus pain?? Subclinical hypothyroidism?? Education Materials Below is the list of Educational Leaflet Providered with your Discharge Instructions. Elbow Dislocation?? Valuables and Belongings I fully understand and agree that [facility] accepts no responsibility for all my personal property including clothing, toilet articles, radios, jewelry, dentures, hearing aids, rings, money, or any other property that is in my possession or is brought to me after admission. I understand certain valuables may be placed in a hospital safe for a short period of time. I understand that the hospital is not liable for loss or damage due to accident, fire, or other natural occurrence while said property is in the safe. I accept full responsibility for any personal property that I keep with me, and will not hold the hospital responsible in case of loss or disappearance. I acknowledge that i have been encouraged to send valuables and belongings home. ?? Review of Valuable and Belonging List: With patient Disposition of Belongings: Valuables Locked Possessions released to: to PACI Date for Pt to Sign Valuables/Belongings: 02/03/23 15:21:00 ?? Other Discharge Information ? Pulmonary Rehab Status?? Pulmonary Rehab Discharge Status?? Respiratory Rate: 18 br/min ? Common Emergency Awareness Tips IS IT A STROKE? Act FAST and Check for these signs: FACE Does the face look uneven? ARM Does one arm drift down? SPEECH Does their speech sound strange? TIME Call at any sign of stroke ?? Heart Attack Signs Chest discomfort: Most heart attacks involve discomfort in the center of the chest and lasts more than a few minutes, or goes away and comes back. It can feel like uncomfortable pressure, squeezing, fullness or pain. Discomfort in upper body: Symptoms can include pain or discomfort in one or both arms, back, neck, jaw or stomach. Shortness of breath: With or without discomfort. Other signs: Breaking out in a cold sweat, nausea, or lightheaded. Remember, MINUTES DO MATTER. If you experience any of these heart attack warning signs, call to get immediate medical attention! ?? Smoking can increase your chances of developing chronic health problems and can cause harmful effects to other family members in your house. If you smoke, you are strongly encouraged to quit. Please call [facility] [employer] [facility] [employer] at [phone] or [phone] ([phone]) or log in to [email or web address] for referrals to smoking cessation programs. ?? 527 Suicide & Crisis Lifeline is available 19/04 if you or someone you know needs to find a reason to keep living. By calling 240 you'll be connected to a skilled, trained counselor at a crisis center in your area. INPATIENT DISCHARGE INSTRUCTIONS SIGNATURE PAGE LASHANDA RICHTER Location:[facility] Registration Date and Time:02/03/2023 05:38 EDT Primary Care Physician: Adeola Archuleta NP, I LASHANDA RICHTER, have received the above patient education materials/instructions and have verbalized understanding. If ambulance or transport services are being used I further acknowledge being given a choice of service. ?? If you need to contact me, please call me at this number: . Patient/Drafter Mechanical Name: Patient/Drafter Mechanical Signature: Relationship to Patient: Witness Name/Signature: Date: * Mckenzie Regan RN: PERFORM Event Display: Patient Education Leaflets Authored Date: [id number] Elbow Dislocation ?? [id number] Elbow Dislocation An elbow dislocation may occur after a fall onto an outstretched arm or in a car accident. When thehand hits a hard surface, the force is sent to the elbow. This tears ligaments and forces the bonesout of the joint. Usually, no bones are broken. But the nearby nerves and blood vessels can be damaged. Once the joint is put back in place, it will take about 6 weeks or more for the ligaments to heal. For simple dislocations, you will use a splint or sling for the first few weeks. You will need [id number] exercises or physical therapy early in your recovery. This will prevent the elbow joint from getting stiff. Later, you may need strengthening exercises. In more severe cases, you may need surgery to realign the joint and repair the torn ligaments or broken bones. Most elbow dislocations heal fully. But there is some risk for arthritis or loss of fullrange of motion in that joint. Home care Follow these guidelines when caring for yourself at home: ??? Keep your arm elevated to reduce pain and swelling. When sitting or lying down, keep your arm above the level of your heart. You can do this by placing your arm on a pillow that rests on your chest or on a pillow at your side. This is most important during the first 2 days (48 hours) after the injury. ??? Put an ice pack on the injured area. Do this for 20 minutes every 1 to 2 hours the firstday. You can make an ice pack by wrapping a plastic bag of ice cubes in a thin towel. As the ice melts, be careful that the cast or splint doesn???t get wet. You can put the ice pack inside the slingand directly over the splint or cast. Continue using the ice pack 3 to 4 times a day for the next 2days. Then use the ice pack as needed to ease pain and swelling. ??? Keep the splint or cast completely dry at all times. Bathe with your splint or cast out of the water. Protect it with a large plastic bag, rubber-banded or taped at the top end. If a fiberglass splint or cast gets wet, you can dryit with a engineering department chair on the cool setting. ??? You may use acetaminophen or ibuprofen to control pain unless another pain medicine was prescribed. If you have chronic liver or kidney disease, talk with your healthcare provider before using these medicines. Also talk with your provider if you???ve had a stomach ulcer or gastrointestinal bleeding. ??? Don???t take part in sports or physical education (PE) until your healthcare provider says it???s OK to do so. ?? Follow-up care Follow up with your healthcare provider as advised. Ask your provider when to start [id number]. These will keep the elbow from getting stiff. If X-rays were taken, a radiologist may look at them. You will be told of any new findings that mayaffect your care. ?? When to seek medical advice Call your healthcare provider right away if any of these occur: ??? The plaster splint or cast becomes wet or soft ??? The fiberglass splint or cast stays wet for more than 24 hours ??? Tightness or pain in the elbow gets worse ??? Fingers become swollen, cold, blue, numb, or tingly ??? You can???tmove your elbow as much as you could ?? Last Reviewed Date: 2022 ?? [id number] [employer] All rights reserved. This information is not intended as a substitute for professional medical care. Always follow your healthcare professional's instructions. ?? Radiology * BHSPowerscrigabe , KANE S: TRANSCRADHA Pollock MD, Anthony P: VERIFY Rosita CRANE, Ariel L: SIGN Event Display: Result: Authored Date: [id number] Elbow Min 3 Views Left, C-Arm > 1 Hour INDICATION: Reason: l elbow dislocation COMPARISONS: Radiograph 01/21/2023. TECHNIQUE: Fluoroscopy support was provided. There was no radiologist in attendance. FLUOROSCOPY TIME: 56 seconds EXPOSURE: .5481 Gycm2 TECHNOLOGIST TIME: 1 hour 10 minutes FINDINGS: 10 intraoperative fluoroscopic spot images during ORIF of a proximal ulna and/or distal humerus fracture IMPRESSION: See above. I have personally reviewed the images and I agree with this report. WSN: [id number] Ordering Physician: Josh Acosta MD Dictated By: Ariel Becker MD Dictated Date/Time: 02/03/23 9:50 am Reviewed By: Anthony Pollock MD Signed By: Anthony Pollock MD Signed Date/Time: 02/03/23 9:55 am Transcribed By: MIRANDA Transcribed Date/Time: 02/03/23 9:33 am XR Elbow - left GE 3 Views * BHSPowerscribe , CIS S: TRANSCRIBE Anthony Pollock MD: VERIFY Ariel Becker MD: SIGN Event Display: Result: Authored Date: [id number] Elbow Min 3 Views Left, C-Arm > 1 Hour INDICATION: Reason: l elbow dislocation COMPARISONS: Radiograph 01/21/2023. TECHNIQUE: Fluoroscopy support was provided. There was no radiologist in attendance. FLUOROSCOPY TIME: 56 seconds EXPOSURE: .5481 Gycm2 TECHNOLOGIST TIME: 1 hour 10 minutes FINDINGS: 10 intraoperative fluoroscopic spot images during ORIF of a proximal ulna and/or distal humerus fracture IMPRESSION: See above. I have personally reviewed the images and I agree with this report. WSN: [id number] Ordering Physician: Josh Acosta MD Dictated By: Ariel Becker MD Dictated Date/Time: 02/03/23 9:50 am Reviewed By: Anthony Pollock MD Signed By: Anthony Pollock MD Signed Date/Time: 02/03/23 9:55 am Transcribed By: MIRANDA Transcribed Date/Time: 02/03/23 9:33 am Patient Care team information Care Team Personnel Name: Cholo Power RN Position: [facility] RN Member Role: Primary Care Nurse Name: Morena Mcgraw RN Position: [facility] RN Member Role: Primary Care Nurse Name: Maggy Porter RN Position: [facility] RN Member Role: Primary Care Nurse Name: Nat Joe RN Position: [facility] OB RN Member Role: Primary Care Nurse Name: Klaudia Almanzar RN Position: [facility] RN Member Role: Primary Care Nurse Name: Jo Lim RN Position: [facility] AMB Nurse Member Role: Primary Care Nurse Name: Adeola Archuleta NP Position: [facility] PCO Associate Professional Member Role: PCP Address: Address: [address] [place] [address]- [place] Care Team Related Persons Name: SULEIMANSHAD JAIMESIN Address: home [address] [place] [address] Name: NEENA ACOSTA Address: [employer] Address: home [address] [place] [address] [place] Name: GRADY ACOSTA Address: home [phone] [place] [address] Name: LUANNE SUTTON Address: home [address] [place] [address]
--- OUTSIDE RECORDS SUMMARY | 2023-08-17 19:42 | XMS_ITS | Continuity of Care Document ---
Author Name Unknown Organization [facility] Address [address] [place] [address]- Care Team Providers Care Bathhouse Attendant Name Role Phone Bharath CRANE, Sarina Biggs Primary Care Physician Encounter [facility] Date(s): 11/15/19 - 11/25/[address] [address]- [facility] Attending Physician: AdmAmador hurley Admitting Physician: AdmAmador hurley Referring Physician: Admtr, Ar8 Allergies, Adverse Reactions, Alerts Substance Reaction Severity [...] 07/30/19 7:41:22 EST, Route to Pharmacy Electronically, [id number], [facility] Start Date: 07/30/19 Status: Ordered [...] 07/30/19 7:42:35 EST, Route to Pharmacy Electronically, [id number], [facility] Start Date: 07/30/19 Status: Ordered LORazepam [...] Maintenance, 08/11/19 15:50:54 EST,Route to Pharmacy Electronically, [id number], [facility] Start Date: 08/11/19 Stop Date: 09/10/19 [...] 08/07/19 15:08:07 EST, Route to Pharmacy Electronically, [id number], [facility]... Start Date: 08/07/19 Status: Ordered Vistaril [...] methadone 592mg daily - [facility]) Social History Social History Type Response Smoking Status Current every day sm oker; Other: 5 ciggerattes a day; entered on: 10/15/15 Sex Female
--- OUTSIDE RECORDS SUMMARY | 2023-08-17 19:42 | XMS_ITS | Continuity of Care Document ---
Author Name Unknown Organization [facility] ter Address [address] [place] [address]- Care Team Providers Care Brickmason Apprentice Name Role Phone Susan Leigh MD Primary Care Physic fox Encounter [facility] Date(s): 07/22/23 - 07/23/[address] [address]- Discharge Disposition: A-D/C Home Attending Physician: Kayley Wilson MD Admitting Physician: Kayley Wilson MD Referring Physician: Not on Staff, Referring MD Allergies, Adverse Reactions, Alerts Substance Reaction Severity Status Mold HEADACHE, BREATHING ISSUES Mild A ctive Immunizations Given and Recorded Vaccine Date Status Refusal Reason tetanus/diphtheria/pertussis, acel(Tdap) 07/23/23 Given tetanus/diphtheria/pertussis, acel(Tdap) 07/03/19 Given tetanus/diphtheria/pertussis, acel(Tdap) 12/19/15 Given tetanus/diphtheria/pertussis, acel(Tdap) 05/14/15 Recorded tetanus/diphtheria/pertussis, acel(Tdap) 01/20/11 Given influenza virus vaccine, inactivated 1 08/10/22 Gi robyn influenza virus vaccine, inactivated 07/05/20 Give n influenza virus vaccine, inactivated 06/27/19 Give n influenza virus vaccine, inactivated 06/14/18 Trell rded influenza virus vaccine, inactivated 05/14/17 Trell rded influenza virus vaccine, inactivated 11/02/16 Trell rded influenza virus vaccine, inactivated 11/05/15 Give n influenza virus vaccine, inactivated 11/16/14 Trell rded pneumococcal 23-valent vaccine 02/09/20 Given influ virus vac, H1N1, inactive(oldterm) 2 07/30/09 Given 1Result Comment: [facility] [id number] 2Admin Note: H1N1 Medications Dilaudid Inj 1 mg, Injection, IV Push Slowly, Once, STAT, 07/22/23 23:12:00 EDT, Stop date 07/22/23 23:12:00 EDT Start Date: 07/22/23 Stop Date: 07/22/23 Status: Completed Dilaudid Inj 1 mg, Injection, IV Push Slowly, Once, STAT, 07/23/23 0:15:00 EDT, Stop date 07/23/23 0:15:00 EDT Start Date: 07/23/23 Stop Date: 07/23/23 Status: Completed KlonoPIN 1 mg oral tablet 1 tablet = 1 mg, By Mouth, 3 times a day, 0 Refills, Maintenance, 07/11/23 10:31:00 EDT, Partial fill upon patient request if the prescription is for a schedule II opioid drug. Start Date: 07/11/23 Status: Ordered Seroquel 300 mg, By Mouth, Daily at bedtime, Refills 0, Maintenance, 07/11/23 10:30:00 EDT, Partial fill upon patient request if the prescription is for a schedule II opioid drug. Start Date: 07/11/23 Status: Ordered Problem List Condition Confirmation Course [...] 1 2 3 Oxygen Saturation [94-100 %] 96 % (07/22/23 11:17 PM) Pulse Rate [55-90 bpm] 90 bpm (07/22/23 11:17 PM) Blood Pressure [90-138/55-84 mm Hg] 112/73mm Hg (07/22/23 11:17 PM) Respiratory Rate [16-30 br/min] 16 br/min (07/23/23 12:23 AM) 12 br/min *L* (07/22/23 11:19 PM) 14 br/min *L* (07/22/23 11:17 PM) Temperature [96.8-100.4 DegF] 97.7 DegF (07/22/23 11:17 PM) Mode of Delivery (Oxygen) Room air (07/22/23 11:17 PM) Blood pressure sites Arm, left (07/22/23 11:17 PM) Temperature Route Oral (07/22/23 11: PM) Social History Social History Type Response Smoking Status 5-9 cigarettes (betw een 1/4 to 1/2 pack)/day in last 30 days; Interested in cessation: No entered on: 08/10/22 Sex Note * Tricia Ma: PERFORM Event Display: Patient Education Leaflets Authored Date: [id number] Laceration, All Closures ?? [id number] Laceration, All Closures A??laceration is a cut through the skin. This will usually need stitches or matthew if it's deep. Minor cuts may be treated with a surgical tape closure or??skin glue. Home care ??? Your healthcare provider may prescribe an antibiotic. This is to help prevent infection. Followall instructions for taking this medicine. Take the medicine every day until it's gone, or you are told to stop. You should not have any left over. ??? The provider may prescribe medicines for pain. If no pain medicines were prescribed, you can use pjuj-fou-tdsxltv pain medicines. Follow instructions for taking any pain medicines. Talk with your provider before using these medicines if you have chronic liver or kidney disease, or ever had a stomach ulcer or digestive bleeding. ??? Follow the provider???s instructions on how to care for the cut. ??? Keep the wound clean and dry. Don't get the wound wet until you are told it's OK to do so.??If the area gets wet, gently pat it dry with a cleancloth. Replace the wet bandage with a dry one. ??? If a bandage was applied and it becomes wet or dirty, replace it. Otherwise, leave it in place for the first 24 hours. ??? Caring for stitches or matthew: Once you no longer need to keep them dry, clean the wound daily. First remove the bandage. Then wash the area gently with soap and clean running water, or as directed by the??provider. Use a wet cotton swab to loosen and remove any blood or crust that forms. After cleaning, apply a thin layerof antibiotic ointment if advised. Then put on a new bandage unless you are told not to. ??? Caringfor skin glue: Don???t apply liquid, ointment, or cream on the wound while the glue is in place.??Don't do activities that cause heavy sweating. Protect the wound from sunlight.??Don't scratch, rub, or pick at the adhesive film. Don't place tape directly over the film.??The glue should peel off naturally in 5 to 10 days.? Caring for surgical tape: Keep the area dry. If it gets wet, blot it dry with a clean towel. Surgical tape often falls off in 7 to 10 days. If it has not fallen off after10 days, you can take it off yourself. Put mineral oil or petroleum jelly on a cotton ball and gently rub the tape until it's removed. ??? Once you can get the wound wet, you may shower as normal. Don't soak the wound in water (no tub baths or swimming). ??? Even with correct treatment, a wound infection may sometimes occur. Check the wound daily for signs of infection listed below. Scalp wounds Follow your healthcare provider's specific instructions on showering. During the first 2 days, you may carefully rinse your hair in the shower to remove blood, glass, or dirt particles. After 2 days,you may shower and shampoo your hair normally. Don't soak your scalp in the tub or go swimming until the stitches or matthew have been removed. Talk with your healthcare provider before applying any antibiotic ointment to the wound. Mouth wounds Eat soft foods to reduce pain. If the cut is inside your mouth, clean by rinsing after each meal and at bedtime with a mixture of equal parts water and hydrogen peroxide (don't swallow!). Or you can use a cotton swab to directly apply hydrogen peroxide onto the cut. You may also be prescribed a chlorhexidine solution to rinse with. Mouth wounds can be painful when eating. You may use an ykry-vkz-omcypvu local numbing solution for pain relief. If this isn't available, you may use any numbing solution intended for teething babies. You may apply this directly to the sores with a cotton-tip swab or with your clean finger. ?? Follow-up care Follow up with your healthcare provider as advised.??Ask your provider how long stitches should be left in place. Be sure to return for stitch removal as directed. If dissolving stitches were used inthe mouth, these should fall out or dissolve without the need for removal. If tape closures were used, remove them yourself when your provider advises if they haven't fallen off on their own. If??skin glue was used, the film will wear off by itself. Generally, you should keep healing wounds out of direct sunlight for the first couple of months to try to lessen scarring. ?? When to get medical advice Call your healthcare provider right away??if any of these occur: ??? Signs of infection, including increasing pain in the wound, increasing wound redness or swelling, or pus or bad odor coming from the wound ??? Fever of??100.4??F (38.??C)??or higher, or as advised by your provider ??? Chills ??? Stitches or matthew come apart or fall out, or surgical tape falls off before 7 days and the wound appears to be reopening ??? Wound edges reopen ??? Wound changes colors ??? Numbness around the wound after any numbing medicine should have worn off ??? Decreased movement around the injured area ?? Call 911 Call 911??if you can't control the wound bleeding??with direct pressure. ?? Last Reviewed Date: 2022 ?? [id number] [employer]. All rights reserved. This information is not intended as a substitute for professional medical care. Always follow your healthcare professional's instructions. ?? * Tricia Ma: PERFORM Event Display: Patient Education Leaflets Authored Date: [id number] Laceration of an Arm or Leg: Stitches, Matthew, or Tape ?? [id number] Laceration of an Arm or Leg: Stitches, Matthew, or Tape A laceration is a cut through the skin. If it's deep or it's gaping open, it may need stitches or matthew to close so it can heal. Minor cuts may be treated with surgical tape closures, or skin glue. X-rays may be done if something may have entered the skin through the cut. You may??also need a tetanus shot if you are not up-to-date on this vaccine. Home care ??? Follow the healthcare provider???s directions on how to care for the cut. ??? Wash your hands with soap and clean, running water before and after caring for your wound. This is to help prevent infection. ??? Keep the wound clean and dry. If a bandage was applied and it becomes wet or dirty, replace it. Otherwise, leave it in place for the first 24 hours, then change it once a day oras directed. ??? If stitches or matthew were used, clean the wound daily: o After removing the bandage, wash the area with soap and water. Use a clean, wet cotton swab to loosen and remove any blood or crust that forms. o After cleaning, keep the wound clean and dry. Talk with your healthcare provider before putting any antibiotic ointment on the wound. Reapply the bandage. ??? Remove the bandageto shower as usual after the first 24 hours, but don't soak the area in water (no swimming or tub baths) until the cut is fully healed. ??? If surgical tape closures were used, keep the area clean and dry. If it becomes wet, blot it dry with a towel. Let the surgical tape fall off on its own. ??? Fo llow the healthcare provider's directions for any medicines prescribed. o The provider may prescribe an antibiotic cream or ointment to prevent infection. They may also prescribe an antibiotic pill. Don't stop taking this medicine until you have finished it all or the provider tells you to stop. o The provider may also prescribe medicine for pain. Follow the directions exactly for how to take these medicines. If your provider did not prescribe pain medicine, you may use rsgk-kur-nzghcap pain medicine. If you have chronic liver or kidney disease, or ever had a stomach ulcer or GI bleeding, talk with your healthcare provider before using these medicines. ??? Don't do activities that may reopen your wound. ??? If the cut is in an area where you might be concerned about how the scar will look, keep the wound out of direct sunlight. After the wound heals, continue to stay out of direct sunlight, or use a sunscreen with a high level of protection. Sunburn or sun exposure can increase scarring. ?? Follow-up care Follow up with your healthcare provider, or as advised. Most skin wounds heal within 10 days. But an infection may sometimes occur even with correct treatment. Check the wound daily for the signs of infection listed below. Stitches and matthew should generally be removed within 7 to14 days. If surgical tape closures were used, you may remove them after 10 days if they have not fallen off by then.? When to get medical advice Call your healthcare provider right away??if any of the following occur: ??? Wound bleeding not controlled by direct pressure ??? Signs of infection, including increasing pain in the wound, increasing wound redness or swelling, or pus or bad odor coming from the wound ??? Chills, fever of??100.4??F(38??C)??or higher, or as directed by your healthcare provider ??? Stitches or matthew coming apartor falling out or surgical tape falling off before 7 days ??? Wound edges reopening ??? Color changes in the wound ??? Numbness around the wound? Decreased movement around the injured area ?? Last Reviewed Date: 2022 ?? 4614-9333 [employer]. All rights reserved. This information is not intended as a substitute for professional medical care. Always follow your healthcare professional's instructions. ?? Patient Care team information Care Team Personnel Name: Morena Mcgraw RN Position: S RN Member Role: Primary Care Nurse Name: Nat Joe RN Position: [facility] OB RN Member Role: Primary Care Nurse Name: Carina VALERIO, Jo De Los Santos Position: [facility] AMB Nurse Member Role: Primary Care Nurse Name: Susan Leigh MD Position: [facility] General Pediatrics MD Member Role: PCP Address: Address: [address] [place] [address]- [place] Name: Tyson Schulz Position: [facility] ED RN W/OE and Tasks Member Role: Patient Care Provider Name: Kayley Wilson MD Position: [facility] ED Medicine MD Member Role: Admitting Physician Address: Address: [address] [place] [address]- [place] Name: Tricia Ma Position: [facility] Associate Professional Member Role: ED Physician Lacquer Dipping Machine Operator Address: Address: [address] [place] [address]- Care Team Related Persons Name: GRADY BEARDEN Address: home [address] [place] [address] Name: NEENA COLE Address: [employer] Address: home [address] [place] [address] [place] Name: GRADY COLE Address: home [phone] [place] [address] Name: LUANNE SUTTON Address: home [address] [place] [address]
--- OUTSIDE RECORDS SUMMARY | 2023-08-17 19:42 | XMS_ITS | Continuity of Care Document ---
Author Name Unknown Organization [facility] Address [address] [place] [address]- Care Team Providers Care Clinic Specialist Name Role Phone Adeola Archuleta NP Primary Care Physician Encounter [facility] Date(s): 10/13/22 - 10/20/22 [facility] [address] [place] [address]- Encounter Diagnosis Bipolar affective(Discharge Diagnosis) - 10/13/22 Anxiety(Discharge Diagnosis) - 10/13/22 Sinus pain(Discharge Diagnosis) - 10/13/22 Attending Physician: Not on Staff, Attending MD [...] H1N1, inactive(oldterm) 2 07/30/09 Given 1Result Comment: [facility] [id number] 2Admin Note: H1N1 Medications cariprazine 1.5 mg [...] 09/14/22 10:10:00 EST, Route to Pharmacy Electronically, [id number], Partial fill upon patientrequest if the [...] 10/22/22 8:44:00 EST, 10/15/22 8:44:00 EST, Capsule, [id number], Partial fill upon patient request if the prescription is for a schedule II opioid drug., 1... Start Date: 10/15/22 Stop Date: 10/22/22 Status: Ordered Flonase 50 mcg/inh nasal spray 1 sprays, Nares, Both, 2 times a day, # 16 Gm, 0 Refills, Maintenance, 09/14/22 9:49:00 EST, [id number], Partial fill upon patient request if the prescription is for a schedule II opioid drug., 1 sprays Nares, Both 2 times a day,x7 days... Start Date: 09/14/22 Stop Date: 09/21/22 Status: Ordered lamotrigine 25 mg oral tablet 50 mg, 2, tablet, By Mouth, Daily, # 28 tablet, Refills 1, Tot. Refills 1, Maintenance, 10/13/22 14:16:00 EST, Route to Pharmacy Electronically, [id number], Partial fill upon patient request [...] Diagnosis Diagnosis Type Effective Dates Health Status inical Service Informant Bipolar affective Discharge Diagnosis 10/13/22 Non-Specified Anxiety Discharge Diagnosis 10/13/22 Sinus pain Discharge Diagnosis 10/13/22 Vital Signs Most recent to oldest [Reference Range]: 1 Height 158 cm (10/13/22 2:04 PM) Weight 67.9 kg (10/13/22 2:04 PM) Oxygen Saturation [94-100 %] 100 % (10/13/22 2:04 PM) Pulse Rate [55-90 bpm] 94 bpm *H* (10/13/22 2:04 PM) Body Mass Index [18.5-24.99 kg/m2] 27.2 kg/m2 *H* (10/13/22 2:04 PM) Blood Pressure [90-138/55-84 mm Hg] 119/ 77mm Hg (1/17/23 2:04 PM) Mode of Delivery (Oxygen) Room air (10/13/22 2:04 PM) Blood pressure sites Arm, left (10/13/22 2:04 PM) Weight Obtained Via Standing scale (10/13/22 2:04 PM) Social History Social History Type Response Smoking Status 5-9 cigarettes (betw een 1/4 to 1/2 pack)/day in last 30 days; Interested in cessation: No entered on: 08/10/22 Sex Female Note * Carolyn Borges: PERFORM, SIGN, VERIFY Event Display: Patient Education/Instruction Authored Date: [id number] [facility] *[facility] Clinical Summary Name LASHANDA RICHTER Age 42 Years 1980 PCP Geremias CARMONA, Adeola Prado PCP Visit Date 10/13/2022 13:58:00 Additional Instructions: Scheduled Appointments?? Future Appointments ?*[facility] ?Phone:??--?Fax:??-- ?Appt. Date:??10/29/2022?11:00 AM ?Scheduled Provider:??Dora Zamora ?*[facility] ?[address] ?Phone:??--?Fax:??-- ?Appt. Date:??11/23/2022?9:20 AM ?Scheduled Provider:??Geremias CARMONA, Adeola Prado Follow-Up Instructions ?? Diagnosis Bipolar disorder, unspecified Medications: Please continue your medications until treatment is completed or stopped by your provider. Discuss any questions related to medications with your provider. Medications to Continue with No Changes [id number], [address] [place], [place] [id number], [phone] cariprazine (cariprazine 1.5 mg oral capsule) 1 capsule Oral Daily for 30 Days. Refills: 1. Next Dose: Lamotrigine (lamotrigine 25 mg oral tablet) 2 tab(s) Oral Daily for 14 Days. Refills: 1. Next Dose: These medications were not printed or sent to your pharmacy Clonidine (cloNIDine 0.1 mg oral tablet) 1 tab(s) Oral twice a day for 30 Days. Refills: 1. Next Dose: Clotrimazole Topical (clotrimazole 1% topical cream) 1 ros Topically twice a day for 4 week(s). Apply to affected areas twice daily until resolution. Refills: 1. Next Dose: Fluticasone Nasal (Flonase 50 mcg/inh nasal spray) 1 spray(s) Nares, Both twice a day for 7 Days. Refills: 0. Next Dose: Allergy Info:?? Mold Medications Given This Visit Future Orders ?Sinuses Comp Min 3 Views? Order Date:10/13/22?- Complete on or after?10/13/22 Vital Signs Height 158 cm Weight 67.9 kg BMI 27.2 kg/m2 Blood Pressure 119 mm Hg/77 mm Hg Temperature Pulse Rate 94 bpm Respiratory Rate 02 Sat Mode of Delivery 100 %/Room air You can now view a summary of your hospital visit from the comfort of your home through a free online portal called [employer]. [employer] is a website that allows you to securely view your medical information including discharge summary, medications and follow-up visits. ??You can alsosend a secure electronic message to your doctor???s office to request appointments, renew medications or just ask a question. You can enroll at [email or web address] or register during your next office visit. [...] primary care provider, you may find a [facility] provider by calling [facility] [employer] Link at [phone]. For information about the plan of care [...] Team Personnel Name: Nat Joe RN Position: [facility] OB RN Member Role: Primary Care Nurse Name: Jo Lim RN Position: [facility] AMB Nurse Member Role: Primary Care Nurse Name: Adeola Archuleta NP Position: [facility] PCO Associate Professional Member Role: PCP Address: Address: [address] [place] [address] [address] [place], [place] [address] Care Team Related Persons Name: GRADY BEARDEN Address: home [address] [place], [place] [id number] Name: NEENA COLE Address: [employer] Address: home [address] [place] [address] Name: GRADY COLE Address: home [phone] [place] [address] Name: LUANNE SUTTON Address: home [address] [place] [address]
--- OUTSIDE RECORDS SUMMARY | 2023-08-17 19:42 | XMS_ITS | Continuity of Care Document ---
Author Name Unknown Organization [facility] Address [address] [place] [address]- Care Team Providers Care Inspector Insulation Name Role Phone Geremias CARMONA, Adeola Prado Primary Care Physician [phone] Encounter [facility] Date(s): 10/07/22 - 11/06/22 [facility] [address] [place] [address]- Allergies, Adverse Reactions, Alerts Substance Reaction Severity [...] inactive(oldterm) 2 07/30/09 Given 1Result Comment: [facility] [id number] 2Admin Note: H1N1 Medications cariprazine 1.5 mg oral capsule 1 capsule = 1.5 mg, By Mouth, Daily, # 30 capsule, 1 Refills, Maintenance, 10/13/22 14:22:00 EST, [id number], Partial fill upon patient request if the prescription is for a schedule II opioiddrug., 158, cm, 10/13/22 14:04:00 EST, Height, 64,... Start Date: 10/13/22 Stop Date: 12/12/22 Status: Ordered cloNIDine 0.1 mg oral tablet 1, tablet, By Mouth, 2 times a day, # 60 tablet, Refills 2, Maintenance, 11/06/22 14:15:00 EST, Route to Pharmacy Electronically, [id number], 158, cm, 10/13/22 14:04:00 EST, Height, 64, kg, 06/07/22 15:44:00 EDT, Dry Weight Start Date: 11/06/22 Stop Date: 12/06/22 Status: Ordered Flonase 50 mcg/inh nasal spray 1 sprays, Nares, Both, 2 times a day, # 16 Gm, 0 Refills, Maintenance, 09/14/22 9:49:00 EST, [place],[id number], Partial fill upon patient request if the prescription is for a schedule II opioid drug., 1 sprays Nares, Both 2 times a day,x7 days... Start Date: 09/14/22 Stop Date: 09/21/22 Status: Ordered lamotrigine 25 mg oral tablet 100 mg, 4, tablet, By Mouth, Daily, # 120 tablet, Refills 1, Tot. Refills 1, Maintenance, 10/27/22 15:12:00 EST, Route to Pharmacy Electronically, [id number], Partial fill upon patient request [...] Team Personnel Name: Nat Joe RN Position: [facility] OB RN Member Role: Primary Care Nurse Name: Jo Lim RN Position: [facility] AMB Nurse Member Role: Primary Care Nurse Name: Adeola Archuleta NP Position: [facility] PCO Associate Professional Member Role: PCP Address: Address: [address] [place] [address]- Care Team Related Persons Name: GRADY BEARDEN Address: home [address] [place] [address] Name: NEENA COLE Address: [employer] Address: home [address] [place] [address] [place] Name: GRADY COLE Address: home [phone] [place] [address] Name: LUANNE SUTTON Address: home [address] [place] [address]
--- OUTSIDE RECORDS SUMMARY | 2023-08-17 19:42 | XMS_ITS | Continuity of Care Document ---
Author Name Unknown Organization [facility] ter Address [address] [place] [address]- Care Team Providers Care Chronometer Repairer Name Role Phone Estevan Sinha MD Primary Care Physician [phone] Encounter [facility] Date(s): 06/07/22 - 06/07/[address] [address]- Discharge Disposition: A-D/C Walkout Attending Physician: Not [...] 08/25/20 13:12:00 EST, Route to Pharmacy Electronically, [facility]/pharmacy #[id number], Partial fill upon patient request, 158, cm, 06/11/20 12:25:00 EDT, Height, 7... Start Date: 08/25/20 Stop Date: 09/08/20 Status: Ordered KlonoPIN 1 mg oral tablet 1 tablet = 1 mg, By Mouth, 2 times a day, PRN Anxiety, # 8 tablet, 0 Refills, Maintenance, 07/05/2010:05:00 EDT, Tablet, [facility]/pharmacy #[id number], 158, cm, 06/11/20 12:25:00 EDT, Height, 79.1, kg, 07/05/20 9:07:00 EDT, Dry Weight Start Date: 07/05/20 Stop Date: 07/09/20 Status: Ordered LaMICtal 25 mg oral tablet 25 mg, 1, tablet, By Mouth, Daily, # 30 tablet, Refills 0, Tot. Refills 0, Maintenance, 07/05/20 10:06:00 EDT, Route to Pharmacy Electronically, [facility]/pharmacy #[id number], 158, cm, 06/11/20 12:25:00 EDT, Height, 79.1, kg, 07/05/20 9:07:00 EDT, Dry Weight Start Date: 07/05/20 Stop Date: 08/04/20 Status: Ordered Methadone = 150 mg, By Mouth, Daily, [facility], 0 Refills, Maintenance, 01/23/20 13:17:00 EDT, Tablet,Partial fill upon patient request Start Date: 01/23/20 Status: Ordered QUEtiapine 100 mg oral tablet 100 mg, 1, tablet, By Mouth, Daily in AM, # 14 tablet, Refills 0, Tot. Refills 0, Maintenance, 08/25/20 13:11:00 EST, Route to Pharmacy Electronically, [facility]/pharmacy #[id number], Partial fill upon patient request, 158, cm, 06/11/20 12:25:00 EDT, Height, 79.1... Start Date: 08/25/20 Stop Date: 09/08/20 Status: Ordered QUEtiapine 200 mg oral tablet 200 mg, 1, tablet, By Mouth, Daily at bedtime, # 14 tablet, Refills 0, Tot. Refills 0, Maintenance,08/25/20 13:12:00 EST, Route to Pharmacy Electronically, [facility]/pharmacy #[id number], Partial fill upon patient request, [...] methadone 592mg daily - [facility]) Vital Signs Most recent to oldest [Reference Range]: 1 2 3 Height 155 cm (06/07/22 3:44 PM) 155 cm (06/07/22 3:34 PM) Weight 64 kg (06/07/22 3:44 PM) 64 kg (06/07/22 3:34 PM) Oxygen Saturation [94-100 %] 99 % (06/07/22 7:57 PM) 91 % *L* (06/07/22 5:58 PM) 97 % (06/07/22 3:34 PM) Pulse Rate [55-90 bpm] 77 bpm (06/07/22 7:57 PM) 80 bpm (06/07/22 5:58 PM) 93 bpm *H* (06/07/22 3:34 PM) Body Mass Index [18.5-24.99] 26.64 *H* (06/07/22 3:34 PM) Blood Pressure [90-138/55-84 mm Hg] 116/82mm Hg (06/07/22 7:57 PM) 138/73mm Hg (06/07/22 5:58 PM) 142/81mm Hg *H* (06/07/22 3:34 PM) Respiratory Rate [16-30 br/min] 18 br/min (06/07/22 5:58 PM) 18 br/min (06/07/22 3:34 PM) Temperature [96.8-100.4 DegF] 98.0 DegF (06/07/22 5:58 PM) 98.1 DegF (06/07/22 3:34 PM) Mode of Delivery (Oxygen) Room air (06/07/22 7:57 PM) Room air (06/07/22 5:58 PM) Room air (06/07/22 3:34 PM) Blood pressure sites Arm, left (06/07/22 7:57 PM) Arm, right (06/07/22 5:58 PM) Arm, right (06/07/22 3:34 PM) Temperature Route Oral (06/07/22 5:58 PM) Oral (06/07/22 3:34 PM) Dry Weight 64 kg (06/07/22 3:44 PM) 64 kg (06/07/22 3:34 PM) Weight Obtained Via Patient/family state d (06/07/22 3:34 PM) Dry Weight Obtained Via Patient/family s tated (06/07/22 3:34 PM) Social History Social History Type Response Smoking Status 10 or more cigarette s (1/2 pack or more)/day in last 30 days entered on: 03/12/20 Sex Female Care Team Personnel Name: Estevan Sinha MD Address: [address] [place] [address], [address] [place], [place] [address]
--- OUTSIDE RECORDS SUMMARY | 2023-08-17 19:43 | XMS_ITS | Continuity of Care Document ---
Author Name Unknown Organization [facility] Address [address] [place] [address]- Care Team Providers Care Behavioral Assistant Name Role Phone Bharath CRANE, Sarina Biggs Primary Care Physician [phone] Encounter [facility] Date(s): 08/15/19 - 09/17/[address] [address]- [facility] Attending Physician: Not on Staff, Attending MD [...] 07/30/19 7:41:22 EST, Route to Pharmacy Electronically, [id number], [facility] Start Date: 07/30/19 Status: [...] 07/30/19 7:42:35 EST, Route to Pharmacy Electronically, [id number], [facility] Start Date: 07/30/19 Status: Ordered LORazepam [...] Maintenance, 08/11/19 15:50:54 EST,Route to Pharmacy Electronically, [id number], [facility] Start Date: 08/11/19 Stop Date: [...] 08/07/19 15:08:07 EST, Route to Pharmacy Electronically, [id number]_[id number], [facility]... Start Date: 08/07/19 Status: Ordered [...] trauma in childhood(Confirmed) Active H/O delivery, [place] (Confirmed) Active Homeless(Confirmed) Active Low grade KHAI(Confirmed) [...] methadone 592mg daily - [facility] ([facility] Social History Social History Type Response Smoking Status Current every day sm oker; Other: 5 ciggerattes a day; entered on: 10/15/15 Sex Female
--- OUTSIDE RECORDS SUMMARY | 2023-08-17 19:43 | XMS_ITS | Continuity of Care Document ---
Author Name Unknown Organization [facility] Address [address] [place] [address]- Care Team Providers Care Diesel Engine Erector Name Role Phone Germeias CARMONA, Adeola Prado Primary Care Physician [phone] Encounter [facility] Date(s): 11/23/22 - 12/23/22 [facility] [address] [place] [address]- Attending Physician: Amador Arias Admitting Physician: Admtr, Amador Referring Physician: Admtr, Ar8 Allergies, Adverse Reactions, [...] H1N1, inactive(oldterm) 2 07/30/09 Given 1Result Comment: [facility] [id number] 2Admin Note: H1N1 Medications cariprazine 1.5 mg oral capsule 1 capsule = 1.5 mg, By Mouth, Daily, # 30 capsule, 1 Refills, Maintenance, 10/13/22 14:22:00 EST, [facility]/pharmacy #[id number], Partial fill upon patient [...] 11/06/22 14:15:00 EST, Route to Pharmacy Electronically, [facility] [id number], 158, cm, 10/13/22 14:04:00 EST, Height, 64, kg, 06/07/22 15:44:00 EDT, Dry Weight Start Date: 11/06/22 Stop Date: 12/06/22 Status: Ordered Flonase 50 mcg/inh nasal spray 1 sprays, Nares, Both, 2 times a day, # 16 Gm, 0 Refills, Maintenance, 09/14/22 9:49:00 EST, [place],[facility]/pharmacy #[id number], Partial fill upon patient request if the prescription is for a schedule II opioid drug., 1 sprays Nares, Both 2 times a day,x7 days... Start Date: 09/14/22 Stop Date: 09/21/22 Status: Ordered lamotrigine 25 mg oral tablet 100 mg, 4, tablet, By Mouth, Daily, # 120 tablet, Refills 1, Tot. Refills 1, Maintenance, 10/27/22 15:12:00 EST, Route to Pharmacy Electronically, [facility]/pharmacy #[id number], Partial fill upon patient request if the prescription is for a schedule II opioid dr.Ascencion. Start Date: 10/27/22 Stop Date: 12/26/22 Status: [...] entered on: 08/10/22 Sex Female Note * Event Display: Non Lab Results Authored Date: Patient Care team information Care Team Personnel Name: Nat Joe RN Position: [facility] OB RN Member Role: Primary Care Nurse Name: Jo Lim RN Position: [facility] AMB Nurse Member Role: Primary Care Nurse Name: Adeola Archuleta NP Position: [facility] PCO Associate Professional Member Role: PCP Address: Address: [address] [place] [address]- Care Team Related Persons Name: SULEIMAN GRADY Address: home [address] [place] [address] Name: NEENA COLE Address: [place] Address: home [address] [place] [address] [place] Name: GRADY COLE Address: home [phone] [place] [address] Name: LUANNE SUTTON Address: home [address] [place] [address]
--- OUTSIDE RECORDS SUMMARY | 2023-08-17 19:43 | XMS_ITS | Continuity of Care Document ---
Author Name Unknown Organization [facility] Address [address] [place] [address]- Care Team Providers Care Drapery Hanger Name Role Phone Geremias CARMONA, Adeola Prado Primary Care Physician [phone] [facility] Date(s): 10/06/22 - 11/05/22 [facility] [address] [place] [address]- Allergies, Adverse Reactions, Alerts Substance Reaction Severity [...] H1N1, inactive(oldterm) 2 07/30/09 Given 1Result Comment: [facility] [id number] 2Admin Note: H1N1 Medications cariprazine 1.5 mg oral capsule 1 capsule = 1.5 mg, By Mouth, Daily, # 30 capsule, 1 Refills, Maintenance, 10/13/22 14:22:00 EST, [facility]/pharmacy #[id number], Partial fill upon patient request if the prescription is for a schedule II opioiddrug., 158, cm, 10/13/22 14:04:00 EST, Height, 64,... Start Date: 10/13/22 Stop Date: 12/12/22 Status: Ordered cloNIDine 0.1 mg oral tablet 0.1 mg, 1, tablet, By Mouth, 2 times a day, # 60 tablet, Refills 1, Tot. Refills 1, Maintenance, 09/14/22 10:10:00 EST, Route to Pharmacy Electronically, [facility]/pharmacy #[id number], Partial fill upon patientrequest if the prescription is for a schedule II op... Start Date: 09/14/22 Stop Date: 11/13/22 Status: Ordered Flonase 50 mcg/inh nasal spray 1 sprays, Nares, Both, 2 times a day, # 16 Gm, 0 Refills, Maintenance, 09/14/22 9:49:00 EST, [place],[facility]/pharmacy #[id number], Partial fill upon patient request if the prescription is for a schedule II opioid drug., 1 sprays Nares, Both 2 times a day,x7 days... Start Date: 09/14/22 Stop Date: 09/21/22 Status: Ordered lamotrigine 25 mg oral tablet 100 mg, 4, tablet, By Mouth, Daily, # 120 tablet, Refills 1, Tot. Refills 1, Maintenance, 10/27/22 15:12:00 EST, Route to Pharmacy Electronically, [facility]/pharmacy #[id number], Partial fill upon patient request if the prescription is for a schedule II opioid dr... Start Date: 10/27/22 Stop Date: 12/26/22 Status: [...] Team Personnel Name: Nat Joe RN Position: [facility] OB RN Member Role: Primary Care Nurse Name: Jo Lim RN Position: [facility] AMB Nurse Member Role: Primary Care Nurse Name: Adeola Archuleta NP Position: [facility] PCO Associate Professional Member Role: PCP Address: Address: [address] [place] [address]- Care Team Related Persons Name: GRADY BEARDEN Address: home [address] [place] [address] Name: NEENA COLE Address: [employer] Address: home [address] [place] [address] [place] Name: GRADY COLE Address: home [phone] [place] [address] Name: LUANNE SUTTON Address: home [address] [place] [address]
--- OUTSIDE RECORDS SUMMARY | 2023-08-17 19:43 | XMS_ITS | Continuity of Care Document ---
Author Name Unknown Organization [facility] Address [address] [place] [address]- Care Team Providers Care It Service Continuity Supervisor Name Role Phone Sarina Sinha MD Primary Care Physician Encounter [facility] Date(s): 10/19/19 - 12/15/[address] [address]- [facility] Attending Physician: Not on Staff, Attending MD Referring Physician: Sarina Sinha MD Allergies, Adverse Reactions, Alerts Substance Reaction [...] 07/30/19 7:41:22 EST, Route to Pharmacy Electronically, [id number], [facility] Start Date: 07/30/19 Status: Ordered [...] 07/30/19 7:42:35 EST, Route to Pharmacy Electronically, [id number], [facility] Start Date: 07/30/19 Status: Ordered LORazepam [...] Maintenance, 08/11/19 15:50:54 EST,Route to Pharmacy Electronically, [id number], [facility] Start Date: 08/11/19 Stop Date: [...] 08/07/19 15:08:07 EST, Route to Pharmacy Electronically, NCPDP_[id number], [facility]... Start Date: 08/07/19 Status: Ordered Vistaril [...] methadone 592mg daily - [facility] ([place]) Social History Social History Type Response Smoking Status Current every day sm oker; Other: 5 ciggerattes a day; entered on: 10/15/15 Sex Female
--- OUTSIDE RECORDS SUMMARY | 2023-08-17 19:43 | XMS_ITS | Continuity of Care Document ---
Author Name Unknown Organization [facility] ter Address [address] [place] [address]- Care Team Providers Care Ob/Gyn Nurse Name Role Phone Bharath CRANE, Sarina Biggs Primary Care Physician [phone] Encounter [facility] Date(s): 03/08/20 - 03/10/[address] [address]- [facility] Encounter Diagnosis Suicide ideation(Final) - 03/09/20 Discharge Disposition: A-D/C AMA Attending Physician: Karel German MD Admitting Physician: Brad Ortiz MD Referring Physician: Not on Staff, Referring [...] 1 07/30/09 Given 1Admin Note: H1N1 Medications chlorproMAZINE 50 mg oral tablet = 50 mg, By Mouth, Daily, PRN Agitation, # 15 tablet, 0 Refills, Maintenance, 02/15/20 8:18:00 EDT,Tablet, [facility], 155, cm, 02/14/20 20:08:00 EDT, Height, 83, kg, 02/12/20 20:58:00 EDT, Dry Weight Start Date: 02/15/20 Status: Ordered cloNIDine 0.1 mg oral tablet 0.1 mg, 1, tablet, By Mouth, 2 times a day, PRN, # 60 tablet, Refills 0, Tot. Refills 0, Maintenance, Anxiety, 02/05/20 18:58:00 EDT, [facility], [facility], 155, cm, 02/05/20 17:26:00 EDT, Height, 83.5, kg, 01/31/20 14:4... Start Date: 02/05/20 Status: Ordered hydrOXYzine pamoate 50 mg oral capsule = 50 mg, By Mouth, 2 times a day, PRN Anxiety, # 60 capsule, 0 Refills, Maintenance, 02/05/20 18:58:00 EDT, Capsule, [facility]/pharmacy #1234, 155, cm, 02/05/20 17:26:00 EDT, Height, 83.5, kg, 01/31/20 14:48:00 EDT, Dry Weight Start Date: 02/05/20 Status: Ordered lamotrigine 25 mg oral tablet 25 mg, 1, tablet, By Mouth, Daily, # 30 tablet, Refills 0, Tot. Refills 0, Maintenance, 02/05/20 19:05:00 EDT, [facility] Pharm[facility]ically, [facility], 155, cm, 02/05/20 17:26:00 EDT, Height, 83.5, kg, 01/31/20 14:48:00 EDT, Dry Weight Start Date: 02/05/20 Status: Ordered Methadone = 150 mg, By Mouth, Daily, 0 Refills, Maintenance, 01/23/20 13:17:00 EDT, Tablet, Partial fill uponpatient request Start Date: 01/23/20 Status: Ordered QUEtiapine 200 mg oral tablet 200 mg, 1, tablet, By Mouth, Daily at bedtime, # 30 tablet, Refills 0, Tot. Refills 0, Maintenance,02/05/20 18:59:00 EDT, [facility] to Pharm[facility]ically, [facility], 155, cm, 02/05/20 17:26:00 EDT, Height, 83.5, kg, 01/31/20 14:48:00 EDT, D... Start Date: 02/05/20 Status: Ordered QUEtiapine 50 mg oral tablet 1 tablet = 50 mg, By Mouth, Daily, PRN Agitation, # 30 tablet, 0 Refills, Maintenance, 02/05/20 19:05:00 EDT, Tablet, [facility], 155, cm, 02/05/20 17:26:00 EDT, Height, 83.5, kg, 01/31/20 14:48:00 EDT, Dry Weight Start Date: 02/05/20 Status: Ordered Vraylar By Mouth, Daily, 0 Refills, Maintenance, 03/08/20 13:17:00 EDT Start Date: 03/08/20 Status: Ordered Xanax 2 mg oral tablet 1 tablet = 2 mg, By Mouth, 3 times a day, PRN for anxiety, 0 Refills, Maintenance, 03/08/20 13:19:00 EDT, Tablet Start Date: 03/08/20 Status: Ordered Problem List Condition Effective Dates [...] methadone 592mg daily - [facility] ([place]) Vital Signs Most recent to oldest [Reference Range]: 1 2 3 Height 165 cm (03/09/20 9:34 PM) 165 cm (03/09/20 5:48 PM) 165 cm (03/09/20 5:00 PM) Weight 84 kg (03/08/20 1:02 PM) Oxygen Saturation [94-100 %] 97 % (03/09/20 9:34 PM) 100 % (03/09/20 5:48 PM) 100 % (03/09/20 5:00 PM) Pulse Rate [55-90 bpm] 94 bpm *H* (03/09/20 9:34 PM) 81 bpm (03/09/20 5:48 PM) 84 bpm (03/09/20 5:00 PM) Body Mass Index [18.5-24.99] 30.85 *>HHI* (03/08/20 1:02 PM) Blood Pressure [90-138/55-84 mm Hg] 143/73mm Hg *H* (03/09/20 9:34 PM) 126/79mm Hg (03/09/20 5:48 PM) 126/79mm Hg (03/09/20 5:00 PM) Respiratory Rate [16-30 br/min] 18 br/min (03/09/20 9:34 PM) 18 br/min (03/09/20 5:48 PM) 18 br/min (03/09/20 5:00 PM) Temperature [96.8-100.4 DegF] 98.3 DegF (03/09/20 9:34 PM) 97.9 DegF (03/09/20 5:48 PM) 97.9 DegF (03/09/20 5:00 PM) Mode of Delivery (Oxygen) Room air (03/09/20 9:34 PM) Room air (03/09/20 5:48 PM) Room air (03/09/20 5:00 PM) Blood pressure sites Arm, left (03/09/20 9:34 PM) Arm, left (03/09/20 5:48 PM) Arm, left (03/09/20 5:00 PM) Temperature Route Oral (03/09/20 9:34 PM) Oral (03/09/20 5:48 PM) Oral (03/09/20 5:00 PM) Dry Weight 84 kg (03/08/20 1:02 PM) Social History Social History Type Response Smoking Status Current every day sm oker; Other: 5 ciggerattes a day; entered on: 10/15/15 Sex Female
--- OUTSIDE RECORDS SUMMARY | 2023-08-17 19:43 | XMS_ITS | Continuity of Care Document ---
Author Name Unknown Organization [facility] ter Address [address] [place] [address]- Care Team Providers Care Marine Habitat Resource Specialist Name Role Phone Geremias CARMONA, Adeola Prado Primary Care Physician [phone] [place] [facility] [place]10[place]23 - 01/10/[address] [address]- Encounter Diagnosis Auditory hallucination(Final) - 01/10/23 Anxiety(Final) - 01/10/23 Depression(Final) - 01/10/23 Discharge Disposition: A-D/C Home Attending Physician: Greg Gambino MD Admitting Physician: Greg Gambino MD Referring Physician: Not on Staff, Referring [...] 2 07/30/09 Given 1Result Comment: [facility] [id number] 2Admin Note: H1N1 Medications cariprazine 1.5 mg oral capsule 1 capsule = 1.5 mg, By Mouth, Daily, # 30 capsule, 1 Refills, Maintenance, 10/13/22 14:22:00 EST, [facility]/pharmacy #[id number], Partial fill upon patient request if the prescription is for a schedule II opioiddrug., 158, cm, 10/13/22 14:04:00 EST, Height, 64,... Start Date: 10/13/22 Stop Date: 12/12/22 Status: Ordered cloNIDine 0.1 mg oral tablet 1, tablet, By Mouth, 2 times a day, # 60 tablet, Refills 2, Maintenance, 11/06/22 14:15:00 EST, Route to Pharmacy Electronically, [facility] STORE [id number], 158, cm, 10/13/22 14:04:00 EST, Height, 64, kg, 06/07/22 15:44:00 EDT, Dry Weight Start Date: 11/06/22 Stop Date: 12/06/22 Status: Ordered Flonase 50 mcg/inh nasal spray 1 sprays, Nares, Both, 2 times a day, # 16 Gm, 0 Refills, Maintenance, 09/14/22 9:49:00 EST, [place],[facility]/pharmacy #[id number], Partial fill upon patient request if the prescription is for a schedule II opioid drug., 1 sprays Nares, Both 2 times a day,x7 days... Start Date: 09/14/22 Stop Date: 09/21/22 Status: Ordered lamotrigine 25 mg oral tablet 100 mg, 4, tablet, By Mouth, Daily, # 120 tablet, Refills 1, Tot. Refills 1, Maintenance, 10/27/22 15:12:00 EST, Route to Pharmacy Electronically, [facility]/pharmacy #[id number], Partial fill upon patient request if [...] recent to oldest [Reference Range]: 1 Height 170 cm (01/10/23 10:34 PM) Weight 75 kg (01/10/23 10:34 PM) Oxygen Saturation [94-100 %] 98 % (01/10/23 10:09 PM) Pulse Rate [55-90 bpm] 103 bpm *H* (01/10/23 10:09 PM) Blood Pressure [90-138/55-84 mm Hg] 155/ 113mm Hg *H* (01/10/23 10:09 PM) Respiratory Rate [16-30 br/min] 18 br/mi n (01/10/23 10:09 PM) Temperature [96.8-100.4 DegF] 98.3 DegF (01/10/23 10:09 PM) Mode of Delivery (Oxygen) Room air (01/10/23 10:09 PM) Temperature Route Oral (01/10/23 10:09 PM) Dry Weight 75 kg (01/10/23 10:34 PM) Social History Social History Type Response Smoking Status 5-9 cigarettes (betw een 1/4 to 1/2 pack)/day in last 30 days; Interested in cessation: No entered on: 08/10/22 Sex Female Note * Camila Boogie MD: PERFORM Event Display: Patient Education Leaflets Authored Date: [id number] Psychiatric Outpatient Referral List ?? 263 Psychiatric Outpatient Referral List [facility] 24hr Emergency Crisis Line? [address], [place]? [phone] ? [phone] [facility] Central Intake? [phone] ? [phone] [facility]? [address], [place] ? [phone] ? Walk in: T-Th 9:45-12:45pm [facility]? [address], [place]? [phone] [facility]? [phone] [facility]? [address], [place]? [phone] [facility] [place]? [address], [place]? [phone] [facility]? [address], [place]? [phone] [facility]? [address], [place]? [phone] [facility]? [address], [place]? [phone] ? Walk in: M-Th 8:00-4:00pm [facility]? [address], [place]? [phone] [facility] [place] [facility]? [address] [place]? [phone] [facility]? [address], [place] ? [phone] [place] [address] Family Services? [address], [place]? [phone] [facility]? [address], [place]? [phone] [facility]? [place]? [phone] [facility] [address], [place]? [phone] [facility]? [place]? [phone] [facility]? [address], [place] ? [phone] [facility]? [address], [place]? [phone] [facility]? [address], [place]? [phone] ? Walk in: M-W 9:30 or 10:30am [facility]? [address], [place]?? [place]? [phone] ? [phone] Domestic Violence 24 Hr Hot Lines: ? [facility]Community? [phone] ? [facility]? [phone]? [facility]? [phone] ? [facility]? [phone] ?? Elder Services: ? [facility] [place] [facility]? [phone] ? [facility] [place] [facility] ? [phone] ?? Legal Advocacy Hot Line: ? [facility] ? [phone] (9:30-12:45 M-Marjorie) ?? [place] Dept of Transitional Assistance: ? [place] [phone] / [place] [phone] / [facility] [phone] ?? DETOX Services [facility]? [address], [place], [place]? [phone] [facility]? [address], [place], [place]? [phone] [facility]? [address], [place], [place]? [phone] [facility] ??? [facility]? [address], [place], [place]? [phone] ? [phone] ? After 5pm:? [phone] [facility] ??? [facility] [address], [place], [place]? [phone] ? [phone]? After 5pm:? [phone] [facility]? [address], [place], [place]? [phone] [facility]? [address], [place], [place]? [phone] ? [phone] [facility]? [address], [place], [place]? [phone] [facility] [place]? [address], [place], [place]? [phone] [facility]? [address], [place], [place]? [phone] [facility]? [address], [place], [place]? [phone] ? [phone] [facility] ?[address], [place], [place]? [phone] [place] [address]? [address], [place], [place]? [phone] ? [phone] [facility] [place]? [address], [place], [place]? [phone] ? [phone] [facility]? [address], [place], [place]? [phone] [facility]? [address], [place], [place] ? [phone] [facility]? [address], [place], [place]? [phone] ? [phone] ? Patient Care team information Care Team Personnel Name: Nat Joe RN Position: [facility] RN Member Role: Primary Care Nurse Name: Carina VALERIO, Jo De Los Santos Position: [facility] AMB Nurse Member Role: Primary Care Nurse Name: Geremias CARMONA, Adeola Prado Position: [facility] PCO Associate Professional Member Role: PCP Address: Address: [address] [place] [address] [address] [place] [address]- [place] Name: Rosalind Dunbar RN Position: [facility] ED RN W/OE and Tasks Member Role: Patient Care Provider Name: Greg Gambino MD Position: [facility] Resident Member Role: Admitting Physician Address: Address: [address] [place] [address]- [place] Name: Camila Boogie MD Position: [facility] Resident Member Role: ED Resident Address: Address: [address] [place] [address]- Care Team Related Persons Name: GRADY BEARDEN Address: home [address] [place] [address] Name: NEENA COLE Address: AMERCN Address: home [address] [place] [address] [place] Name: GRADY COLE Address: home [address] [place] [address] Name: LUANNE SUTTON Address: home [address] [place] [address]
--- OUTSIDE RECORDS SUMMARY | 2023-08-17 19:43 | XMS_ITS | Continuity of Care Document ---
Author Name Unknown Organization [facility] Adult Address [address] [place] [address]- Care Team Providers Care Air Tube Releaser Name Role Phone Geremias CARMONA, Adeola Prado Primary Care Physician [place] [facility] [place](s): 08/21/22 - 09/20/22 [facility] [address] [place] [address]- Allergies, Adverse Reactions, Alerts Substance Reaction Severity [...] H1N1, inactive(oldterm) 2 07/30/09 Given 1Result Comment: [facility] [id number] 2Admin Note: H1N1 Medications cariprazine 1.5 mg oral capsule 1 capsule = 1.5 mg, By Mouth, Daily, # 30 capsule, 0 Refills, Maintenance, 09/14/22 10:09:00 EST, [facility]/pharmacy #[id number], Partial fill upon patient request if the prescription is for a schedule II opioiddrug., 158, cm, 09/14/22 9:22:00 EST, Height, 64, k... Start Date: 09/14/22 Stop Date: 10/14/22 Status: Ordered cloNIDine 0.1 mg oral tablet 0.1 mg, 1, tablet, By Mouth, 2 times a day, # 60 tablet, Refills 1, Tot. Refills 1, Maintenance, 09/14/22 10:10:00 EST, Route to Pharmacy Electronically, [facility]/pharmacy #[id number], Partial fill upon patientrequest if the prescription is for a schedule II op... Start Date: 09/14/22 Stop Date: 11/13/22 Status: Ordered clotrimazole 1% topical cream 1 application, Topically, 2 times a day, for 4 week(s), Apply to affected areas twice daily until resolution, # 30 Gm, 1 Refills, Acute 10/22/22 9:56:00 EST, 08/27/22 9:56:00 EST, Cream, [facility]/pharmacy#[id number], Partial fill upon patient request if the pre... Start Date: 08/27/22 Stop Date: 10/22/22 Status: Ordered Flonase 50 mcg/inh nasal spray 1 sprays, Nares, Both, 2 times a day, # 16 Gm, 0 Refills, Maintenance, 09/14/22 9:49:00 EST, [place],[facility]/pharmacy #[id number], Partial fill upon patient request if the prescription is for a schedule II opioid drug., 1 sprays Nares, Both 2 times a day,x7 days... Start Date: 09/14/22 Stop Date: 09/21/22 Status: Ordered lamotrigine 25 mg oral tablet 25 mg, 1, tablet, By Mouth, Daily, # 14 tablet, Refills 0, Tot. Refills 0, Maintenance, 09/14/22 10:10:00 EST, Route to Pharmacy Electronically, [facility]/pharmacy #[id number], Partial fill upon patient request if the prescription is for a schedule II opioid drug... Start Date: 09/14/22 Stop Date: 09/28/22 Status: Ordered Mucinex 600 mg oral tablet, extended release 1 tablet = 600 mg, By Mouth, Every 12 hours, for 7 days, # 14 tablet, 0 Refills, Acute 09/21/22 9:49:00 EST, 09/14/22 9:49:00 EST, ER Tablet, [facility]/pharmacy #[id number], Partial fill upon patient request if the prescription is for a schedule II opioid drug.,... Start Date: 09/14/22 Stop Date: 09/21/22 Status: Ordered penicillin V potassium 500 mg oral tablet 1 tablet = 500 mg, By Mouth, 2 times a day, for 10 days, # 20 tablet, 0 Refills, Acute 09/24/22 9:51:00 EST, 09/14/22 9:51:00 EST, Tablet, [facility]/pharmacy #[id number], Partial fill upon patient request if theprescription is for a schedule II opioid drug., 158... Start Date: 09/14/22 Stop Date: 09/24/22 Status: Ordered Problem List Condition Confirmation Course [...] Team Personnel Name: Nat Joe RN Position: [facility] OB RN Member Role: Primary Care Nurse Name: Carina VALERIO, Jo De Los Santos Position: [facility] AMB Nurse Member Role: Primary Care Nurse Name: Adeola Archuleta NP Position: [facility] PCO Associate Professional Member Role: PCP Address: Address: [address] [place] [address] 3rd [place] [address]- [place] Care Team Related Persons Name: SULEIMANGRADY JAIMES Address: home [address] [place] [address] Name: ELAINE COLEING Address: AMERCN Address: home [address] [place] [address] [place] Name: GRADY COLE Address: home [address] [place] [address] Name: LUANNE SUTTON Address: home [address] [place] [address]
--- OUTSIDE RECORDS SUMMARY | 2023-08-17 19:43 | XMS_ITS | Continuity of Care Document ---
Author Name Unknown Organization [facility] Address [address] [place] [address]- Care Team Providers Care Capacity Planning Manager Name Role Phone Reese CRANE, Susan Thornton Primary Care Physic fox Encounter [facility] Date(s): 02/02/23 - 03/04/23 [facility] [address] [place] [address]- Attending Physician: AdmAmador hurley Admitting Physician: Admtr, Ar8 Referring Physician: Admtr, Ar8 Allergies, Adverse Reactions, [...] H1N1, inactive(oldterm) 2 07/30/09 Given 1Result Comment: [facility] [id number] 2Admin Note: H1N1 Medications Flonase 50 mcg/inh nasal spray 2 sprays = 100 mcg, Nares, Both, Daily, # 15.8 mL, 0 Refills, Maintenance, 01/20/23 10:07:00 EDT, Nas[place], [id number], Partial fill upon patient request if the prescription is fora schedule II opioid drug., 2 sprays Nares, Both Da... Start Date: 01/20/23 Status: Ordered hydrOXYzine pamoate 50 mg oral capsule = 50 mg, By Mouth, 2 times a day, PRN Anxiety, # 60 capsule, 2 Refills, Maintenance, 01/20/23 10:15:00 EDT, Capsule, [id number], Partial fill upon patient request if the [...] 01/20/23 10:10:00 EDT, Route to Pharmacy Electronically, [id number], Partial fill upon patient request if the [...] Maintenance,01/20/23 10:19:00 EDT, Route to Pharmacy Electronically, [id number], Partial fill upon patient request if the prescription is for a mary... Start Date: 01/20/23 Status: Ordered SEROquel 100 mg oral tablet 100 mg, 1, tablet, By Mouth, Daily at bedtime, # 30 tablet, Refills 2, Tot. Refills 2, Maintenance,01/20/23 10:11:00 EDT, Route to Pharmacy Electronically, [facility][id number], Partial fill upon patient request if the [...] in cessation: No entered on: 08/10/22 Sex Laboratory * Event Display: Non Lab Results Authored Date: Patient Care team information Care Team Personnel Name: Cholo Power RN Position: [facility] RN Member Role: Primary Care Nurse Name: Morena Mcgraw RN Position: [facility] RN Member Role: Primary Care Nurse Name: Maggy Porter RN Position: [facility] RN Member Role: Primary Care Nurse Name: Nat Joe RN Position: [facility] OB RN Member Role: Primary Care Nurse Name: Jo Lim RN Position: [facility] AMB Nurse Member Role: Primary Care Nurse Name: Susan Leigh MD Position: [facility] General Pediatrics MD Member Role: PCP Address: Address: [address] [place] [address]- [place] Care Team Related Persons Name: GRADY BEARDEN Address: home [address] [place] [address] Name: COLE BLESSING Address: AMERCN Address: home [address] [place] [address] [place] Name: GRADY COLE Address: home [address] [place] [address] Name: LUANNE SUTTON Address: home [address] [place] [address]
--- OUTSIDE RECORDS SUMMARY | 2023-08-17 19:43 | XMS_ITS | Continuity of Care Document ---
Author Name Unknown Organization [facility] ter Address [address] [place] [address]- Care Team Providers Care Cash Register Balancer Name Role Phone Estevan Sinha MD Primary Care Physician Encounter [facility] [place] Date(s): 05/17/20 - 05/19/[address] [address]- [facility] Encounter Diagnosis Alcohol abuse(Final) - 05/17/20 Cocaine use(Final) - 05/17/20 Heroin use(Final) - 05/17/20 Depression(Final) - 05/17/20 Discharge Disposition: A-D/C Home Attending Physician: Bill [...] 1 07/30/09 Given 1Admin Note: H1N1 Medications amoxicillin 500 mg oral tablet 1 tablet = 500 mg, By Mouth, 3 times a day, for 7 days, # 21 tablet, 0 Refills, Acute 05/26/20 11:02:00 EDT, 05/19/20 11:02:00 EDT, Tablet Start Date: 05/19/20 Stop Date: 05/26/20 Status: Ordered cloNIDine 0.1 mg oral tablet [...] Date: 03/25/20 Stop Date: 04/24/20 Status: Ordered KlonoPIN 1 mg oral tablet 1 tablet = 1 mg, By Mouth, 2 times a day, PRN Anxiety, # 20 tablet, 1 Refills, Maintenance, 05/02/20 15:55:00 EDT, Tablet, [facility]/pharmacy #1234, 157.48, cm, 03/25/20 8:03:00 EDT, Height, 85.8, kg, 03/31/20 17:25:00 EDT, Dry Weight Start Date: 05/02/20 Stop Date: 05/22/20 Status: Ordered LaMICtal 25 mg oral tablet 25 mg, 1, tablet, By Mouth, Daily, # 30 tablet, Refills 0, Tot. Refills 0, Maintenance, 05/02/20 15:55:00 EDT, Route to Pharmacy Electronically, [facility]/pharmacy #1234, 157.48, cm, 03/25/20 8:03:00 EDT, Height, 85.8, kg, 03/31/20 17:25:00 EDT, Dry Weight Start Date: 05/02/20 Stop Date: 06/01/20 Status: Ordered Methadone = 155 mg, By [...] Daily at bedtime, # 14 tablet, Refills 1, Tot. Refills 1, Maintenance,05/02/20 15:56:00 EDT, Route to Pharmacy Electronically, [facility]/pharmacy #1234, 157.48, cm, 03/25/20 8:03:00 EDT, Height, 85.8, kg, 03/31/20 17:25:00 EDT,... Start Date: 05/02/20 Stop Date: 05/30/20 Status: Ordered QUEtiapine 50 mg oral tablet 1 tablet = 50 mg, By Mouth, Daily at bedtime, # 30 tablet, 0 Refills, Maintenance, 03/25/20 12:10:00 EDT, Tablet, Dry Weight Start Date: 03/25/20 Stop Date: 04/24/20 Status: Ordered SEROquel 100 mg oral tablet 100 mg, 1, tablet, By Mouth, Daily, PRN, # 14 tablet, Refills 1, Tot. Refills 1, Maintenance, Other, 05/02/20 15:55:00 EDT, [facility], 157.48, cm, 03/25/20 8:03:00 EDT, Height, 85.8, kg, 03/31/20 17:25:00 EDT... Start Date: 05/02/20 Stop Date: 05/30/20 Status: Ordered traZODone 100 mg oral tablet [...] methadone 592mg daily - [facility]) Vital Signs Most recent to oldest [Reference Range]: 1 2 3 Oxygen Saturation [94-100 %] 99 % (05/19/20 12:13 PM) 100 % (05/19/20 9:03 AM) 98 % (05/19/20 2:07 AM) Pulse Rate [55-90 bpm] 79 bpm (05/19/20 12:13 PM) 68 bpm (05/19/20 9:05 AM) 82 bpm (05/19/20 9:03 AM) Blood Pressure [90-138/55-84 mm Hg] 129/95mm Hg (05/19/20 12:13 PM) 144/64mm Hg *H* (05/19/20 9:05 AM) 140/92mm Hg *H* (05/19/20 9:03 AM) Respiratory Rate [16-30 br/min] 16 br/min (05/19/20 12:13 PM) 18 br/min (05/19/20 11:45 AM) 18 br/min (05/19/20 9:23 AM) Temperature [96.8-100.4 DegF] 97.7 DegF (05/19/20 9:05 AM) 98.0 DegF (05/19/20 2:07 AM) 97.9 DegF (05/18/20 10:59 PM) Mode of Delivery (Oxygen) Room air (05/19/20 12:13 PM) Room air (05/19/20 9:03 AM) Room air (05/19/20 2:07 AM) Blood pressure sites Arm, left (05/19/20 9:03 AM) Arm, left (05/19/20 2:07 AM) Arm, right (05/18/20 8:20 AM) Temperature Route Oral (05/19/20 9:05 AM) Oral (05/19/20 2:07 AM) Oral (05/18/20 10:59 PM) Weight Obtained Via UTO (05/17/20 3:54 PM) Dry Weight Obtained Via [facility]TO (05/17/20 3:54 PM) Social History Social History Type Response Smoking Status 10 or more cigarette s (1/2 pack or more)/day in last 30 days entered on: 03/12/20 Sex Female
--- OUTSIDE RECORDS SUMMARY | 2023-08-17 19:43 | XMS_ITS | Continuity of Care Document ---
Author Name Unknown Organization [facility] Adult Address [address] [place] [address]- Care Team Providers Care Market Research Coordinator Name Role Phone Geremias CARMONA, Adeola Prado Primary Care Physician Encounter [facility] [place] Date(s): 10/13/22 - 11/12/22 [facility] [address] [place] [address]- Allergies, Adverse Reactions, Alerts Substance Reaction Severity [...] inactive(oldterm) 2 07/30/09 Given 1Result Comment: [facility] [id number] 2Admin Note: H1N1 Medications cariprazine 1.5 mg oral capsule 1 capsule = 1.5 mg, By Mouth, Daily, # 30 capsule, 1 Refills, Maintenance, 10/13/22 14:22:00 EST, [facility]/pharmacy #[id number], Partial fill upon patient request if the prescription is for a schedule II opioiddrug., 158, cm, 10/13/22 14:04:00 EST, Height, 64,... Start Date: 10/13/22 Stop Date: 12/12/22 Status: Ordered cloNIDine 0.1 mg oral tablet 1, tablet, By Mouth, 2 times a day, # 60 tablet, Refills 2, Maintenance, 11/06/22 14:15:00 EST, Route to Pharmacy Electronically, [facility] 91324, 158, cm, 10/13/22 14:04:00 EST, Height, 64, kg, 06/07/22 15:44:00 EDT, Dry Weight Start Date: 11/06/22 Stop Date: 12/06/22 Status: Ordered Flonase 50 mcg/inh nasal spray 1 sprays, Nares, Both, 2 times a day, # 16 Gm, 0 Refills, Maintenance, 09/14/22 9:49:00 EST, [place],[facility]/pharmacy #[id number], Partial fill upon patient request if the prescription is for a schedule II opioid drug., 1 sprays Nares, Both 2 times a day,x7 days... Start Date: 09/14/22 Stop Date: 09/21/22 Status: Ordered lamotrigine 25 mg oral tablet 100 mg, 4, tablet, By Mouth, Daily, # 120 tablet, Refills 1, Tot. Refills 1, Maintenance, 10/27/22 15:12:00 EST, Route to Pharmacy Electronically, [facility]/pharmacy [...] Name: Nat Joe RN Position: [facility] OB RN Member Role: Primary Care Nurse Name: Jo Lim RN Position: [facility] AMB Nurse Member Role: Primary Care Nurse Name: Adeola Archuleta NP Position: [facility] PCO Associate Professional Member Role: PCP Address: Address: [address] [place] [address]- Care Team Related Persons Name: GRADY BEARDEN Address: home [address] [place] [address] Name: NEENA COLE Address: AMERCN Address: home [address] [place] [address] [place] Name: GRADY COLE Address: home [address] [place] [address] Name: LUANNE SUTTON Address: home [address] [place] [address]
--- OUTSIDE RECORDS SUMMARY | 2023-08-17 19:43 | XMS_ITS | Continuity of Care Document ---
Author Name Unknown Organization [facility] Adult Address [address] [place] [address]- Care Team Providers Care Integrity Consultant Name Role Phone Geremias CARMONA, Adeola Prado Primary Care Physician [phone] Encounter [facility] Date(s): 10/02/22 - 11/01/22 [facility] Adult [address] [place] [address]- Allergies, Adverse Reactions, Alerts Substance Reaction Severity [...] H1N1, inactive(oldterm) 2 07/30/09 Given 1Result Comment: [facility] [id number] 2Admin Note: H1N1 Medications cariprazine 1.5 mg [...] Gm, 0 Refills, Maintenance, 09/14/22 9:49:00 EST, [place],[facility]/pharmacy #[id number], Partial fill upon patient [...] Team Personnel Name: Nat Joe RN Position: [facility] OB RN Member Role: Primary Care Nurse Name: Jo Lim RN Position: [facility] AMB Nurse Member Role: Primary Care Nurse Name: Adeola Archuleta NP Position: [facility] PCO Associate Professional Member Role: PCP Address: Address: [address] [place] [address]- Care Team Related Persons Name: GRADY BEARDEN Address: home [address] [place] [address] Name: NEENA COLE Address: AMERCN Address: home [address] [place] [address] [place] Name: GRADY COLE Address: home [address] [place] [address] Name: LUANNE SUTTON Address: home [address] [place] [address]
--- OUTSIDE RECORDS SUMMARY | 2023-08-17 19:43 | XMS_ITS | Continuity of Care Document ---
Author Name Unknown Organization [facility] ter Address [address] [place] [address]- Care Team Providers Care Tree Fruit And Nut Farming Supervisor Name Role Phone Not on Staff, PCP Primary Care Physician Unavail able Encounter [facility] Date(s): 02/08/20 - 02/09/[address] [address]- [facility] Discharge Disposition: A-D/C AMA Attending Physician: Monserrat CRANE, Karel Admitting Physician: Ewa Eason MD Referring Physician: Not on Staff, Referring [...] 02/05/20 18:58:00 EDT, Route to Pharmacy Electronically, [facility]/pharmacy #[id number], 155, cm, 02/05/20 17:26:00 EDT, Height, 83.5, kg, 01/31/20 14:4... Start Date: 02/05/20 Status: Ordered hydrOXYzine pamoate 50 mg oral capsule = 50 mg, By Mouth, 2 times a day, PRN Anxiety, # 60 capsule, 0 Refills, Maintenance, 02/05/20 18:58:00 EDT, Capsule, [facility]/pharmacy #1234, 155, cm, 02/05/20 17:26:00 EDT, Height, 83.5, kg, 01/31/20 14:48:00 EDT, Dry Weight Start Date: 02/05/20 Status: Ordered lamotrigine 25 mg oral tablet 25 mg, 1, tablet, By Mouth, Daily, # 30 tablet, Refills 0, Tot. Refills 0, Maintenance, 02/05/20 19:05:00 EDT, Route to Pharmacy Electronically, [facility]/pharmacy #1234, 155, cm, 02/05/20 17:26:00 EDT, Height, [...] Maintenance,02/05/20 18:59:00 EDT, Route to Pharmacy Electronically, [facility]/pharmacy #1234, 155, cm, 02/05/20 17:26:00 EDT, Height, 83.5, kg, 01/31/20 14:48:00 EDT, D... Start Date: 02/05/20 Status: Ordered QUEtiapine 50 mg oral tablet 1 tablet = 50 mg, By Mouth, Daily, PRN Agitation, # 30 tablet, 0 Refills, Maintenance, 02/05/20 19:05:00 EDT, Tablet, [facility]/pharmacy #1234, 155, cm, 02/05/20 17:26:00 EDT, Height, [...] methadone 592mg daily - [facility] ([place]) Vital Signs Most recent to oldest [Reference Range]: 1 2 3 Height 154.94 cm (02/09/20 3:30 PM) 154.94 cm (02/09/20 7:10 AM) 154.94 cm (02/09/20 3:10 AM) Weight 77.27 kg (02/08/20 5:23 PM) 77.27 kg (02/08/20 12:40 PM) 77.27 kg (02/08/20 2:16 AM) Oxygen Saturation [94-100 %] 98 % (02/09/20 3:30 PM) 98 % (02/09/20 7:10 AM) 97 % (02/09/20 3:10 AM) Pulse Rate [55-90 bpm] 94 bpm *H* (02/09/20 3:30 PM) 70 bpm (02/09/20 7:10 AM) 72 bpm (02/09/20 3:10 AM) Body Mass Index [18.5-24.99] 32.19 *>HHI* (02/08/20 5:23 PM) Blood Pressure [90-138/55-84 mm Hg] 140/85mm Hg *H* (02/09/20 3:30 PM) 127/71mm Hg (02/09/20 7:10 AM) 120/63mm Hg (02/09/20 3:10 AM) Respiratory Rate [16-30 br/min] 18 br/min (02/09/20 3:30 PM) 16 br/min (02/09/20 9:20 AM) 16 br/min (02/09/20 7:10 AM) Temperature [96.8-100.4 DegF] 98.2 DegF (02/09/20 3:30 PM) 98.0 DegF (02/09/20 7:10 AM) 97.7 DegF (02/09/20 3:10 AM) Mode of Delivery (Oxygen) Room air (02/09/20 3:30 PM) Room air (02/09/20 7:10 AM) Room air (02/09/20 3:10 AM) Blood pressure sites Arm, right (02/09/20 3:30 PM) Arm, left (02/09/20 7:10 AM) Arm, left (02/09/20 3:10 AM) Temperature Route Oral (02/09/20 3:30 PM) Oral (02/09/20 7:10 AM) Oral (02/09/20 3:10 AM) Dry Weight 77.27 kg (02/08/20 5:23 PM) 77.27 kg (02/08/20 12:40 PM) 77.27 kg (02/08/20 2:16 AM) Weight Obtained Via Standing scale (02/08/20 12:27 AM) Social History Social History Type Response Smoking Status Current every day [place]; Other: 5 ciggerattes a day; entered on: 10/15/15 Sex Female
--- OUTSIDE RECORDS SUMMARY | 2023-08-17 19:43 | XMS_ITS | Continuity of Care Document ---
Author Name Unknown Organization [facility] Address [address] [place] [address]- Care Team Providers Care Farmworker Diversified Crops Name Role Phone Not on Staff, PCP Primary Care Physician Unavail able Encounter [facility] Date(s): 01/31/20 - 02/06/20 [facility] [address] [place] [address]- [facility] Discharge Disposition: A-D/C Home Attending Physician: Loulou Hernandez MD Admitting Physician: Loulou Hernandez MD Referring Physician: Not on Staff, Referring [...] 02/05/20 18:58:00 EDT, Route to Pharmacy Electronically, [facility]/pharmacy #1234, 155, cm, 02/05/20 17:26:00 EDT, Height, 83.5, kg, 01/31/20 14:4... Start Date: 02/05/20 Status: Ordered hydrOXYzine pamoate 50 mg oral capsule = 50 mg, By Mouth, 2 times a day, PRN Anxiety, # 60 capsule, 0 Refills, Maintenance, 02/05/20 18:58:00 EDT, Capsule, [facility]/pharmacy #1234, 155, cm, 02/05/20 17:26:00 EDT, Height, 83.5, kg, 01/31/20 14:48:00 EDT, Dry Weight Start Date: 02/05/20 Status: Ordered lamotrigine 25 mg oral tablet 25 mg, 1, tablet, By Mouth, Daily, # 30 tablet, Refills 0, Tot. Refills 0, Maintenance, 02/05/20 19:05:00 EDT, Route to Pharmacy Electronically, [facility]/pharmacy #1234, 155, cm, 02/05/20 17:26:00 EDT, Height, [...] Maintenance,02/05/20 18:59:00 EDT, Route to Pharmacy Electronically, [facility]/pharmacy #1234, 155, cm, 02/05/20 17:26:00 EDT, Height, 83.5, kg, 01/31/20 14:48:00 EDT, D... Start Date: 02/05/20 Status: Ordered QUEtiapine 50 mg oral tablet 1 tablet = 50 mg, By Mouth, Daily, PRN Agitation, # 30 tablet, 0 Refills, Maintenance, 02/05/20 19:05:00 EDT, Tablet, [facility]/pharmacy #1234, 155, cm, 02/05/20 17:26:00 EDT, Height, [...] 592mg daily - [facility] Care Resource ([facility] Results Radiology Reports * Exam Date Time Procedure Performing Provider Status 02/01/20 1:25 PM Forearm 2 Views Left Breana Angel; Lynne (Verified) Notes: (Forearm 2 Views Left) Reason For Exam: Pain RESULT: Forearm 2 Views Left Wrist Comp Min 3 Views Left, Forearm 2 Views Left Reason: Pain; Clinical Question(s): Fracture; Hx of Present Illness: released today from [place], pt reports no where to stay, SI thoughts. Drank 1 + pint vodka. Cooperative. C O shakey and headache COMPARISON: None. FINDINGS: No fracture or dislocation. No arthritic change. Normal carpal configuration. Intact radial and ulnar styloid processes. Visualized left elbow joint is unremarkable. Normal soft tissues. IMPRESSION: No radiographic evidence of acute osseous abnormality. I have personally reviewed the images and I agree with this report. WSN: [id number] Ordering Physician: Chalino Mera Dictated By: Maikol Hassan MD Dictated Date/Time: 02/01/20 1:33 pm Reviewed By: Kaelyn Vick MD Signed By: Kaelyn Vick MD Signed Date/Time: 02/01/20 1:38 pm Transcribed By: MIRANDA Transcribed Date/Time: 02/01/20 1:31 pm * Exam Date Time Procedure Performing Provider Status 02/01/20 1:25 PM Wrist Comp Min 3 Views Left Quan Angel Auth (Verified) Notes: (Wrist Comp Min 3 Views Left) Reason For Exam: Pain RESULT: Wrist Comp Min 3 Views Left Wrist Comp Min 3 Views Left, Forearm 2 Views Left Reason: Pain; Clinical Question(s): Fracture; Hx of Present Illness: released today from [place], pt reports no where to stay, SI thoughts. Drank 1 + pint vodka. Cooperative. C O shakey and headache COMPARISON: None. FINDINGS: No fracture or dislocation. No arthritic change. Normal carpal configuration. Intact radial and ulnar styloid processes. Visualized left elbow joint is unremarkable. Normal soft tissues. IMPRESSION: No radiographic evidence of acute osseous abnormality. I have personally reviewed the images and I agree with this report. WSN: [id number] Ordering Physician: Chalino Mera Dictated By: Maikol Hassan MD Dictated Date/Time: 02/01/20 1:33 pm Reviewed By: Kaelyn Vick MD Signed By: Kaelyn Vick MD Signed Date/Time: 02/01/20 1:38 pm Transcribed By: MIRANDA Transcribed Date/Time: 02/01/20 1:31 pm Vital Signs Most recent to oldest [Reference Range]: 1 2 3 Height 155 cm (02/05/20 5:26 PM) 155 cm (02/05/20 9:11 AM) 155 cm (02/04/20 3:59 PM) Weight 83.5 kg (01/31/20 2:48 PM) 79.5 kg (01/31/20 12:59 AM) 79.5 kg (01/30/20 5:22 PM) Oxygen Saturation [94-100 %] 97 % (02/05/20 5:26 PM) 100 % (02/04/20 3:59 PM) 99 % (02/04/20 8:21 AM) Pulse Rate [55-90 bpm] 74 bpm (02/05/20 5:26 PM) 76 bpm (02/05/20 9:11 AM) 78 bpm (02/04/20 3:59 PM) Body Mass Index [18.5-24.99] 34.76 *>HHI* (01/31/20 2:48 PM) 33.09 *>HHI* (01/31/20 12:59 AM) 33.09 *>HHI* (01/30/20 5:22 PM) Blood Pressure [90-138/55-84 mm Hg] 116/62mm Hg (02/05/20 5:26 PM) 108/55mm Hg (02/05/20 9:11 AM) 108/55mm Hg (02/05/20 8:32 AM) Respiratory Rate [16-30 br/min] 18 br/min (02/06/20 6:35 AM) 16 br/min (02/05/20 9:30 PM) 16 br/min (02/05/20 9:09 PM) Temperature [96.8-100.4 DegF] 98.3 DegF (02/05/20 5:26 PM) 98.4 DegF (02/05/20 9:11 AM) 97.6 DegF (02/04/20 3:59 PM) Mode of Delivery (Oxygen) Room air (02/05/20 5:26 PM) Room air (02/04/20 3:59 PM) Room air (02/03/20 7:11 PM) Blood pressure sites Arm, left (02/05/20 5:26 PM) Arm, right (02/05/20 9:11 AM) Arm, left (02/03/20 7:11 PM) Temperature Route Oral (02/05/20 5:26 PM) Oral (02/05/20 9:11 AM) Oral (02/04/20 3:59 PM) Dry Weight 83.5 kg (01/31/20 2:48 PM) 79.5 kg (01/31/20 12:59 AM) 79.5 kg (01/30/20 5:22 PM) Sensory deficits None (01/31/20 2:48 PM) Mobility assistance Independent (01/31/20 2:48 PM) Social History Social History Type Response Smoking Status Current every day sm oker; Other: 5 ciggerattes a day; entered on: 10/15/15 Sex Female
--- OUTSIDE RECORDS SUMMARY | 2023-08-17 19:43 | XMS_ITS | Continuity of Care Document ---
Author Name Unknown Organization [facility] Adult Address [address] [place] [address]- Care Team Providers Care Guidance Adviser Name Role Phone Geremias CARMONA, Adeola Prado Primary Care Physician Encounter [facility] Date(s): 10/15/22 - 11/14/22 [facility] [address] [place] [address]- Allergies, Adverse Reactions, Alerts Substance Reaction Severity [...] Comment: [facility] [id number] 2Admin Note: H1N1 Medications cariprazine 1.5 mg oral capsule 1 capsule = 1.5 mg, By Mouth, Daily, # 30 capsule, 1 Refills, Maintenance, 10/13/22 14:22:00 EST, [facility]/pharmacy #[id number], Partial fill upon patient request if the prescription is for a schedule II opioiddrug., 158, cm, 10/13/22 14:04:00 EST, Height, 64,... Start Date: 10/13/22 Stop Date: 12/12/22 Status: Ordered cloNIDine 0.1 mg oral tablet 1, tablet, By Mouth, 2 times a day, # 60 tablet, Refills 2, Maintenance, 11/06/22 14:15:00 EST, Route to Pharmacy Electronically, [facility] STORE 75410, 158, cm, 10/13/22 14:04:00 EST, Height, 64, kg, 06/07/22 15:44:00 EDT, Dry Weight Start Date: 11/06/22 Stop Date: 12/06/22 Status: Ordered Flonase 50 mcg/inh nasal spray 1 sprays, Nares, Both, 2 times a day, # 16 Gm, 0 Refills, Maintenance, 09/14/22 9:49:00 EST, [place],[facility]/pharmacy #[id number], Partial fill upon patient request if the prescription is for a schedule II opioid drug., 1 sprays Nares, Both 2 times a day,x7 days... Start Date: 09/14/22 Stop Date: 09/21/22 Status: Ordered lamotrigine 25 mg oral tablet 100 mg, 4, tablet, By Mouth, Daily, # 120 tablet, Refills 1, Tot. Refills 1, Maintenance, 10/27/22 15:12:00 EST, Route to Pharmacy Electronically, [facility]/pharmacy #[id number], Partial fill upon patient request [...] Team Personnel Name: Nat Joe RN Position: [facility] OB RN Member Role: Primary Care Nurse Name: Jo Lim RN Position: [facility] AMB Nurse Member Role: Primary Care Nurse Name: Adeola Archuleta NP Position: [facility] PCO Associate Professional Member Role: PCP Address: Address: [address] [place] [address]- Care Team Related Persons Name: GRADY BEARDEN Address: home [address] [place] [address] Name: NEENA COLE Address: [employer] Address: home [address] [place] [address] [place] Name: GRADY COLE Address: home [phone] [place] [address] Name: LUANNE SUTTON Address: home [address] [place] [address]
--- OUTSIDE RECORDS SUMMARY | 2023-08-17 19:43 | XMS_ITS | Continuity of Care Document ---
Author Name Unknown Organization [facility] Adult Address [address] [place] [address]- Care Team Providers Care Straight Truck Driver Name Role Phone Geremias CARMONA, Adeola Prado Primary Care Physician [phone] Encounter [facility] Date(s): 10/15/22 - 11/14/22 [facility] [address] [place] [address]- Allergies, Adverse Reactions, Alerts Substance Reaction Severity [...] H1N1, inactive(oldterm) 2 07/30/09 Given 1Result Comment: [facility] [id number] 2Admin Note: H1N1 Medications cariprazine 1.5 mg oral capsule 1 capsule = 1.5 mg, By Mouth, Daily, # 30 capsule, 1 Refills, Maintenance, 10/13/22 14:22:00 EST, [facility]/pharmacy #[id number], Partial fill upon patient request if the prescription is for a schedule II opioiddrug., 158, cm, 10/13/22 14:04:00 EST, Height, 64,... Start Date: 10/13/22 Stop Date: 12/12/22 Status: Ordered cloNIDine 0.1 mg oral tablet 1, tablet, By Mouth, 2 times a day, # 60 tablet, Refills 2, Maintenance, 11/06/22 14:15:00 EST, Route to Pharmacy Electronically, [facility] STORE [id number], 158, cm, 10/13/22 14:04:00 EST, Height, 64, kg, 06/07/22 15:44:00 EDT, Dry Weight Start Date: 11/06/22 Stop Date: 12/06/22 Status: Ordered Flonase 50 mcg/inh nasal spray 1 sprays, Nares, Both, 2 times a day, # 16 Gm, 0 Refills, Maintenance, 09/14/22 9:49:00 EST, [place],[facility]/pharmacy #[id number], Partial fill upon patient request if the prescription is for a schedule II opioid drug., 1 sprays Nares, Both 2 times a day,x7 days... Start Date: 09/14/22 Stop Date: 09/21/22 Status: Ordered lamotrigine 25 mg oral tablet 100 mg, 4, tablet, By Mouth, Daily, # 120 tablet, Refills 1, Tot. Refills 1, Maintenance, 10/27/22 15:12:00 EST, Route to Pharmacy Electronically, [facility]/pharmacy #[id number], Partial fill upon patient [...] Team Personnel Name: Nat Joe RN Position: [facility] OB RN Member Role: Primary Care Nurse Name: Jo Lim RN Position: [facility] AMB Nurse Member Role: Primary Care Nurse Name: Adeola Archuleta NP Position: [facility] PCO Associate Professional Member Role: PCP Address: Address: [address] [place] [address]- Care Team Related Persons Name: GRADY BEARDEN Address: home [address] [place] [address] Name: NEENA COLE Address: [employer] Address: home [address] [place] [address] [place] Name: GRADY COLE Address: home [phone] [place] [address] Name: LUANNE SUTTON Address: home [address] [place] [address]
--- OUTSIDE RECORDS SUMMARY | 2023-08-17 19:43 | XMS_ITS | Continuity of Care Document ---
Author Name Unknown Organization [facility] Adult Address [address] [place] [address]- Care Team Providers Care Hogshead Opener Name Role Phone Geremias CARMONA, Adeola Prado Primary Care Physician [phone] [place] [facility] [place]s): 10/15/22 - 11/14/22 [facility] Adult [address] [place] [address]- Allergies, Adverse Reactions, Alerts Substance Reaction Severity [...] H1N1, inactive(oldterm) 2 07/30/09 Given 1Result Comment: [facility] [id number] 2Admin Note: H1N1 Medications cariprazine 1.5 mg oral capsule 1 capsule = 1.5 mg, By Mouth, Daily, # 30 capsule, 1 Refills, Maintenance, 10/13/22 14:22:00 EST, [facility]/pharmacy #[id number], Partial fill upon patient request if the prescription is for a schedule II opioiddrug., 158, cm, 10/13/22 14:04:00 EST, Height, 64,... Start Date: 10/13/22 Stop Date: 12/12/22 Status: Ordered cloNIDine 0.1 mg oral tablet 1, tablet, By Mouth, 2 times a day, # 60 tablet, Refills 2, Maintenance, 11/06/22 14:15:00 EST, Route to Pharmacy Electronically, [facility] STORE [address]22, 158, cm, 10/13/22 14:04:00 EST, Height, 64, kg, 06/07/22 15:44:00 EDT, Dry Weight Start Date: 11/06/22 Stop Date: 12/06/22 Status: Ordered Flonase 50 mcg/inh nasal spray 1 sprays, Nares, Both, 2 times a day, # 16 Gm, 0 Refills, Maintenance, 09/14/22 9:49:00 EST, [place],[facility]/pharmacy #[id number], Partial fill upon [...] 15:12:00 EST, Route to Pharmacy Electronically, [facility]/pharmacy #[id number], Partial fill upon [...] Team Personnel Name: Nat Joe RN Position: [facility] OB RN Member Role: Primary Care Nurse Name: Jo Lim RN Position: [facility] AMB Nurse Member Role: Primary Care Nurse Name: Adeola Archuleta NP Position: [facility] PCO Associate Professional Member Role: PCP Address: Address: [address] [place] [address]- Care Team Related Persons Name: GRADY BEARDEN Address: home [address] [place] [address] Name: NEENA COLE Address: [employer] Address: home [address] [place] [address] [place] Name: GRADY COLE Address: home [phone] [place] [address] Name: LUANNE SUTTON Address: home [address] [place] [address]
--- OUTSIDE RECORDS SUMMARY | 2023-08-17 19:43 | XMS_ITS | Continuity of Care Document ---
Author Name Unknown Organization [facility] Adult Address [address] [place] [address]- Care Team Providers Care Stretching Machine Operator Name Role Phone Geremias CARMONA, Adeola Prado Primary Care Physician Encounter [facility] Date(s): 08/19/22 - 09/18/22 [facility] [address] [place], [place] [address] Allergies, Adverse Reactions, Alerts Substance Reaction Severity [...] 2 07/30/09 Given 1Result Comment: [facility] [id number] 2Admin Note: H1N1 Medications cariprazine 1.5 mg oral capsule 1 capsule = 1.5 mg, By Mouth, Daily, # 30 capsule, 0 Refills, Maintenance, 09/14/22 10:09:00 EST, [facility]/pharmacy #[id number], Partial fill upon patient request if the prescription is for a schedule II opioiddrug., 158, cm, 09/14/22 9:22:00 EST, Height, 64, k... Start Date: 09/14/22 Stop Date: 10/14/22 Status: Ordered cloNIDine 0.1 mg oral tablet 0.1 mg, 1, tablet, By Mouth, 2 times a day, # 60 tablet, Refills 1, Tot. Refills 1, Maintenance, 09/14/22 10:10:00 EST, Route to Pharmacy Electronically, [facility]/pharmacy #[id number], Partial fill upon patientrequest if the prescription is for a schedule II op... Start Date: 09/14/22 Stop Date: 11/13/22 Status: Ordered clotrimazole 1% topical cream 1 application, Topically, 2 times a day, for 4 week(s), Apply to affected areas twice daily until resolution, # 30 Gm, 1 Refills, Acute 10/22/22 9:56:00 EST, 08/27/22 9:56:00 EST, Cream, [facility]/pharmacy#[id number], Partial fill upon patient request if the pre... Start Date: 08/27/22 Stop Date: 10/22/22 Status: Ordered Flonase 50 mcg/inh nasal spray 1 sprays, Nares, Both, 2 times a day, # 16 Gm, 0 Refills, Maintenance, 09/14/22 9:49:00 EST, [place],[facility]/pharmacy #[id number], Partial fill upon patient request if the prescription is for a schedule II opioid drug., 1 sprays Nares, Both 2 times a day,x7 days... Start Date: 09/14/22 Stop Date: 09/21/22 Status: Ordered lamotrigine 25 mg oral tablet 25 mg, 1, tablet, By Mouth, Daily, # 14 tablet, Refills 0, Tot. Refills 0, Maintenance, 09/14/22 10:10:00 EST, Route to Pharmacy Electronically, [facility]/pharmacy #[id number], Partial fill upon patient request if the prescription is for a schedule II opioid drug... Start Date: 09/14/22 Stop Date: 09/28/22 Status: Ordered Mucinex 600 mg oral tablet, extended release 1 tablet = 600 mg, By Mouth, Every 12 hours, for 7 days, # 14 tablet, 0 Refills, Acute 09/21/22 9:49:00 EST, 09/14/22 9:49:00 EST, ER Tablet, [facility]/pharmacy #[id number], Partial fill upon patient request if the prescription is for a schedule II opioid drug.,... Start Date: 09/14/22 Stop Date: 09/21/22 Status: Ordered penicillin V potassium 500 mg oral tablet 1 tablet = 500 mg, By Mouth, 2 times a day, for 10 days, # 20 tablet, 0 Refills, Acute 09/24/22 9:51:00 EST, 09/14/22 9:51:00 EST, Tablet, [facility]/pharmacy #[id number], Partial fill upon patient request [...] Associate Professional Member Role: PCP Address: Address: [address] [place] [address] [address] [place] [address]- [place] Care Team Related Persons Name: SULEIMANGRADY JAIMES Address: home [address] [place] [address] Name: ELAINE COLEING Address: [employer] Address: home [address] [place] [address] [place] Name: GRADY COLE Address: home [phone] [place] [address] Name: LUANNE SUTTON Address: home [address] [place] [address]
--- OUTSIDE RECORDS SUMMARY | 2023-08-17 19:44 | XMS_ITS | Continuity of Care Document ---
Author Name Unknown Organization [facility] Address [address] [place] [address]- Care Team Providers Care Stereoptic Projection Topographer Name Role Phone Bharath CRANE, Sarina Biggs Primary Care Physician Encounter [facility] Date(s): 09/13/19 - 11/17/[address] [address]- [facility] Attending Physician: Not on Staff, Attending [...] 07/30/19 7:41:22 EST, Route to Pharmacy Electronically, [id number], [facility] Start Date: 07/30/19 Status: [...] 07/30/19 7:42:35 EST, Route to Pharmacy Electronically, [id number], [facility] Start Date: 07/30/19 Status: Ordered [...] Maintenance, 08/11/19 15:50:54 EST,Route to Pharmacy Electronically, [id number], [facility] Start Date: 08/11/19 Stop [...] 08/07/19 15:08:07 EST, Route to Pharmacy Electronically, [id number]_[id number], [facility]... Start Date: 08/07/19 Status: Ordered [...] methadone 592mg daily - [facility] ([facility] Social History Social History Type Response Smoking Status Current every day sm oker; Other: 5 ciggerattes a day; entered on: 10/15/15 Sex Female
--- OUTSIDE RECORDS SUMMARY | 2023-08-17 19:44 | XMS_ITS | Continuity of Care Document ---
Author Name Unknown Organization [facility] Address [address] [place] [address]- Care Team Providers Care Filler Sifter Machine Name Role Phone Geremias CARMONA, Adeola Prado Primary Care Physician [phone] Encounter [facility] Date(s): 10/15/22 - 11/14/22 [facility] [address] [place] [address]- Allergies, Adverse Reactions, Alerts Substance Reaction Severity [...] H1N1, inactive(oldterm) 2 07/30/09 Given 1Result Comment: [facility] [id number] 2Admin Note: H1N1 Medications cariprazine 1.5 mg oral capsule 1 capsule = 1.5 mg, By Mouth, Daily, # 30 capsule, 1 Refills, Maintenance, 10/13/22 14:22:00 EST, [facility]/pharmacy #[id number], Partial fill upon patient request if the prescription is for a schedule II opioiddrug., 158, cm, 10/13/22 14:04:00 EST, Height, 64,... Start Date: 10/13/22 Stop Date: 12/12/22 Status: Ordered cloNIDine 0.1 mg oral tablet 1, tablet, By Mouth, 2 times a day, # 60 tablet, Refills 2, Maintenance, 11/06/22 14:15:00 EST, Route to Pharmacy Electronically, [id number], 158, cm, 10/13/22 14:04:00 EST, Height, 64, kg, 06/07/22 15:44:00 EDT, Dry Weight Start Date: 11/06/22 Stop Date: 12/06/22 Status: Ordered Flonase 50 mcg/inh nasal spray 1 sprays, Nares, Both, 2 times a day, # 16 Gm, 0 Refills, Maintenance, 09/14/22 9:49:00 EST, [place],[facility]/pharmacy #[id number], Partial fill upon patient request if the prescription is for a schedule II opioid drug., 1 sprays Nares, Both 2 times a day,x7 days... Start Date: 09/14/22 Stop Date: 09/21/22 Status: Ordered lamotrigine 25 mg oral tablet 100 mg, 4, tablet, By Mouth, Daily, # 120 tablet, Refills 1, Tot. Refills 1, Maintenance, 10/27/22 15:12:00 EST, Route to Pharmacy Electronically, [facility]/pharmacy #[id number], Partial fill upon patient request [...] Professional Member Role: PCP Address: Address: [address] [place] [address]- Care Team Related Persons Name: GRADY BEARDEN Address: home [address] [place] [address] Name: NEENA COLE Address: [employer] Address: home [address] [place] [address] [place] Name: GRADY COLE Address: home [phone] [place] [address] Name: LUANNE SUTTON Address: home [address] [place] [address]
--- OUTSIDE RECORDS SUMMARY | 2023-08-17 19:44 | XMS_ITS | Continuity of Care Document ---
Author Name Unknown Organization [facility] Address [address] [place] [address]- Care Team Providers Care Time Clock Inspector Name Role Phone Adeola Archuleta NP Primary Care Physician [place] [facility] [place](s[place] 09/14/22 - 09/21/22 [facility] [address] [place] [address]- Encounter Diagnosis Bipolar affective(Discharge Diagnosis) - 09/14/22 Attending Physician: Not on Staff, Attending MD [...] inactive(oldterm) 2 07/30/09 Given 1Result Comment: [facility] [id number] 2Admin Note: H1N1 Medications cariprazine 1.5 mg [...] 09/14/22 10:10:00 EST, Route to Pharmacy Electronically, [facility]/pharmacy #[id number], Partial fill upon patientrequest [...] Gm, 0 Refills, Maintenance, 09/14/22 9:49:00 EST, [place],[id number], Partial fill upon patient request if [...] Pharmacy Electronically, [id number], Partial fill upon patient request if the prescription is for a schedule II opioid drug... Start Date: 09/14/22 Stop Date: 09/28/22 Status: Ordered penicillin V potassium 500 mg oral tablet 1 tablet = 500 mg, By Mouth, 2 times a day, for 10 days, # 20 tablet, 0 Refills, Acute 09/24/22 9:51:00 EST, 09/14/22 9:51:00 EST, Tablet, [id number], Partial fill upon patient [...] Diagnosis Diagnosis Type Effective Dates Health Status Cl inical Service Informant Bipolar affective Discharge Diagnosis 09/14/22 Vital Signs Most recent to oldest [Reference Range]: 1 Height 158 cm (09/14/22 9:22 AM) Weight 66.1 kg (09/14/22 9:22 AM) Oxygen Saturation [94-100 %] 100 % (09/14/22 9:22 AM) Pulse Rate [55-90 bpm] 89 bpm (09/14/22 9:22 AM) Body Mass Index [18.5-24.99 kg/m2] 26.48 kg/m2 *H* (09/14/22 9:22 AM) Blood Pressure [90-138/55-84 mm Hg] 127/ 62mm Hg (09/14/22 9:22 AM) Respiratory Rate [16-30 br/min] 18 br/mi n (09/14/22 9:22 AM) Temperature [96.8-100.4 DegF] 99.3 DegF (09/14/22 9:22 AM) Mode of Delivery (Oxygen) Room air (09/14/22 9:22 AM) Blood pressure sites Arm, left (09/14/22 9:22 AM) Temperature Route Temporal (09/14/22 9:22 AM) Weight Obtained Via Standing scale (09/14/22 9:22 AM) Social History Social History Type Response Smoking Status 5-9 cigarettes (betw een 1/4 to 1/2 pack)/day in last 30 days; Interested in cessation: No entered on: 08/10/22 Sex Female Note * Carolyn Borges: PERFORM, SIGN, VERIFY Event Display: Patient Education/Instruction Authored Date: [id number] [facility] Clinical Summary Name LASHANDA RICHTER Age 42 Years 1980 PCP Adeola Archuleta NP PCP Visit Date 09/14/2022 09:19:00 Additional Instructions: Scheduled Appointments?? Future Appointments ?*[facility] ?[address],??[place],??[address] ?Phone:??--?Fax:??-- ?Appt. Date:??09/29/2022?9:20 AM ?Scheduled Provider:??Adeola Archuleta NP ?*[facility] ?[address],??[place],??[address] ?Phone:??--?Fax:??-- ?Appt. Date:??10/13/2022?2:00 PM ?Scheduled Provider:??Geremias CARMONA, Adeola Prado Follow-Up Instructions ?? Diagnosis Acute pharyngitis, unspecified; Nasal congestion; Streptococcal pharyngitis Medications: Please continue your medications until treatment is completed or stopped by your provider. Discuss any questions related to medications with your provider. New Medications [facility]/pharmacy #[id number], [address], [place] [id number], [phone] Fluticasone Nasal (Flonase 50 mcg/inh nasal spray) 1 spray(s) Nares, Both twice a day for 7 Days. Refills: 0. Next Dose: Guaifenesin (Mucinex 600 mg oral tablet, extended release) 1 tab(s) Oral every 12 hours for 7 Days.Refills: 0. Next Dose: penicillin V potassium (penicillin V potassium 500 mg oral tablet) 1 tab(s) Oral twice a day for 10Days. Refills: 0. Next Dose: Medications to Continue [...] needed for anxiety. Refills: 0. Next Dose: Clotrimazole Topical (clotrimazole 1% topical cream) 1 ros Topically twice a day for 4 week(s). Apply to affected areas twice daily until resolution. Refills: 1. Next Dose: Lamotrigine (LaMICtal 100 mg oral tablet) 1 tab(s) Oral Daily. 1 tablet by mouth daily at bedtime. Refills: 0. Next Dose: Lamotrigine (lamotrigine 150 mg oral tablet) 2 tab(s) Oral Daily. Take 2 tabs by mouth every night at bedtime. Refills: 0. Next Dose: Methadone 150 Milligram Oral Daily. [facility]. Next Dose: Nicotine (Nicotrol Inhaler 10 mg inhalation device) follow label instructions. Refills: 0. Next Dose: Quetiapine (SEROquel 50 mg oral tablet) 1 tab(s) Oral twice a day. one tab at HS and one tab duringthe night PRN. Refills: 0. Next Dose: Allergy Info:?? Mold Medications Given This Visit Future Orders ?COVID-19, RSV, and Flu A/B, Rapid PCR? Order Date:09/14/22?- Complete on or after?09/14/22 Vital Signs Height 158 cm Weight 66.1 kg BMI 26.48 kg/m2 Blood Pressure 127 mm Hg/62 mm Hg Temperature 99.3 DegF Pulse Rate 89 bpm Respiratory Rate 18 br/min 02 Sat Mode of Delivery 100 %/Room air You can now view a summary of your hospital visit from the comfort of your home through a free online portal called [employer]. [employer] is a website that allows you to securely view your medical information including discharge summary, medications and follow-up visits. ??You can alsosend a secure electronic message to your doctor???s office to request appointments, renew medications or just ask a question. You can enroll at [email or web address] or register during your next office [...] primary care provider, you may find a [facility] provider by calling [facility] at [phone]. For information about the plan of care [...] Team Personnel Name: Nat Joe RN Position: [facility] OB RN Member Role: Primary Care Nurse Name: Jo Lim RN Position: [facility] AMB Nurse Member Role: Primary Care Nurse Name: Adeola Archuleta NP Position: [facility] PCO Associate Professional Member Role: PCP Address: Address: [address] [facility] [address] [place] [address]- Care Team Related Persons Name: GRADY BEARDEN Address: home [address] [place] [address] Name: NEENA COLE Address: [employer] Address: home [address] [place] [address] Name: GRADY COLE Address: home [phone] [place] [address] Name: LUANNE SUTTON Address: home [address] [place] [address]
--- OUTSIDE RECORDS SUMMARY | 2023-08-17 19:44 | XMS_ITS | Continuity of Care Document ---
Author Name Unknown Organization [facility] ter Address [address] [place] [address]- Care Team Providers Care Coke Handling Supervisor Name Role Phone Reese CRANE, Susan Thornton Primary Care Physic fox Encounter [facility] Date(s): 02/21/23 - 02/21/[address] [address]- Encounter Diagnosis Cocaine use disorder(Final) - 02/21/23 Discharge Disposition: A-D/C Home Attending Physician: Maikol Napoels MD Admitting Physician: Maikol Napoles MD Referring Physician: Not on Staff, Referring [...] H1N1, inactive(oldterm) 2 07/30/09 Given 1Result Comment: [facility] [id number] 2Admin Note: H1N1 Medications Flonase 50 mcg/inh nasal spray 2 sprays = 100 mcg, Nares, Both, Daily, # 15.8 mL, 0 Refills, Maintenance, 01/20/23 10:07:00 EDT, Nasal [place], [id number], Partial fill upon patient request if the prescription is fora schedule II opioid drug., 2 sprays Nares, Both Da... Start Date: 01/20/23 Status: Ordered hydrOXYzine pamoate 50 mg oral capsule = 50 mg, By Mouth, 2 times a day, PRN Anxiety, # 60 capsule, 2 Refills, Maintenance, 01/20/23 10:15:00 EDT, [place], [id number], Partial fill upon patient request if the [...] 01/20/23 10:10:00 EDT, Route to Pharmacy Electronically, [id number], Partial fill upon patient request if the [...] Maintenance,01/20/23 10:19:00 EDT, Route to Pharmacy Electronically, [id number], Partial fill upon patient request if the prescription is for a mary... Start Date: 01/20/23 Status: Ordered SEROquel 100 mg oral tablet 100 mg, 1, tablet, By Mouth, Daily at bedtime, # 30 tablet, Refills 2, Tot. Refills 2, Maintenance,01/20/23 10:11:00 EDT, Route to Pharmacy Electronically, [id number], Partial fill upon patient request if the [...] recent to oldest [Reference Range]: 1 2 Oxygen Saturation [94-100 %] 99 % (02/21/23 6:45 PM) 97 % (02/21/23 6:28 PM) Pulse Rate [55-90 bpm] 120 bpm *H* (02/21/23 6:45 PM) 124 bpm *H* (02/21/23 6:28 PM) Blood Pressure [90-138/55-84 mm Hg] 158/ 96mm Hg *H* (02/21/23 6:45 PM) Respiratory Rate [16-30 br/min] 18 br/mi n (02/21/23 6:45 PM) Temperature [96.8-100.4 DegF] 97 DegF (02/21/23 6:45 PM) Mode of Delivery (Oxygen) Room air (02/21/23 6:45 PM) Blood pressure sites Arm, left (02/21/23 6:45 PM) Temperature Route Oral (02/21/23 6:45 PM) Social History Social History Type Response Smoking Status 5-9 cigarettes (betw een 1/4 to 1/2 pack)/day in last 30 days; Interested in cessation: No entered on: 08/10/22 Sex Note * Gina Leija MD: PERFORM, SIGN, VERIFY Event Display: Patient Education Handout Authored Date: * Gina Leija MD: PERFORM Event Display: Patient Education Leaflets Authored Date: [facility] - Substance Abuse Resources ?? 151 If you need Substance Abuse Resources: ?? [facility] [phone] ?? [facility] [phone] ?? [facility] [phone] ?? [facility] [phone] ?? [facility] [phone] ?? [facility] [phone] ?? [facility] [phone] ?? [facility] [phone] ?? [facility] [phone] ?? [facility] [phone] ?? [facility] [phone] ?? [facility] [phone] ?? [facility] [phone] ?? [facility] [phone] ?? [facility] [phone] ?? [facility] (13-17 yo) [place] [phone] ?? [place] [facility] [phone] ? Partial Hospitalization ??? Outpatient therapy for adults and families with substance abuse problems [address] [place] [address] ? Support Services ? [facility] - Outpatient therapy /support for recovery / transitional housing & shelters? [address] [facility] [phone] ? [facility] - women's AA group/street outreach program/health access assistance? [address] [place] [address] ? Alcoholic Anonymous - AA program to maintain sobriety/ [facility]on-support for families of alcoholics/Alateen-support for children of same [phone] ? [facility] - recovery support services/sober social Opportunities [address] [place] [address] ? * Heladio CRANE, Gina Brooks: PERFORM Event Display: Patient Education Leaflets Authored Date: [id number] Cocaine and Crack Abuse ?? [id number] Cocaine and Crack Abuse Cocaine is typically snorted or injected into a vein. It can also be rubbed onto the gums.??Crack is made from cocaine. It can be smoked for a stronger effect. Cocaine causes a very powerful mental and physical dependence.?? Once you have a dependence, you'll do just about anything to get the drug and have the feeling it gives you. This can increase your risk for: ??? Overdose that may lead to ??? Loss of your job, your home, or your family ??? Accidental injuries to yourself or others while you are under the influence of the drug (in a car or at home) ??? Arrest, conviction, and half-way sentence for possession of an illegal substance or for driving underthe influence Medically, cocaine can affect every organ in your body.??It can cause: ??? Chest pain, heart rhythm problem (arrhythmia), heart attack, and heart failure ??? Very high blood pressure ??? Severe headache, seizures, loss of consciousness, and stroke ??? Anxiety, psychosis, confusion, paranoia, and hallucinations ??? Nasal damage from snorting ??? Nausea, belly (abdominal) pain, and loss of appetite ??? Chronic bronchitis and shortness of breath from smoking ??? Higherrisk for HIV infection, hepatitis B or C, and heart infection. This is from IV use, risky sexual behavior while high, or both.? Kidney failure Home care These tips will help you care for yourself at home: ??? Admit you have a drug problem. Ask for help from your family and close friends. ??? See a mental health provider or counselor if you have depression or anxiety. ??? Join a self-help group for drug abuse. ??? Stay away from people who abuse drugs themselves or who tempt you to continue abusing the drug. ??? Eat a balanced diet and start a regular exercise program. If you continue to use IV cocaine, lower your risk of getting or spreading infection by: ??? Using only sterile equipment ??? Not reusing or sharing equipment ??? Cleaning your skin before injecting ?? Follow-up care Follow up with your healthcare provider, or as advised. Contact 1 of the resources below for help: ??? Substance Abuse and Mental Health Treatment Administration (SAMHSA) at www.samhsa.gov/find-treatment or 640-069-SSJK ??? [facility] [place] on Drug Abuse (SYLVIE) at www.drugabuse.gov ? National [place] on Alcoholism and Drug Dependence at www.ncadd.org ??? Narcotics Anonymous at www.na.org ?? Call 911 Call 911 if any of these occur: ??? Seizure ??? Hard time breathing or slow, irregular breathing ??? Chest pain ??? Sudden weakness on 1 side of your body or sudden trouble speaking ??? Very drowsy or trouble waking up ??? Fast heart rate ?? When to get medical advice Call your healthcare provider right away if any of the following occur: ??? Agitation, anxiety, or unable to sleep ??? Unintended weight loss. This means more than 10 to 15 pounds over 6 months without dieting. ??? Hallucination, severe depression, or thoughts of harming yourself or another ??? Fever of 100.4??F??(38??C) or higher, or as advised by your provider ??? Redness, pain, or swelling at an injection site ??? Loss of vision or decreased vision ?? Last Reviewed Date: 2022 ?? [id number] The [employer]. All rights reserved. This information is not intended as a substitute for professional medical care. Always follow your healthcare professional's instructions. ?? Patient Care team information Care Team Personnel Name: Cholo Power RN Position: [facility] RN Member Role: Primary Care Nurse Name: Morena Mcgraw RN Position: [facility] RN Member Role: Primary Care Nurse Name: Maggy Porter RN Position: [facility] RN Member Role: Primary Care Nurse Name: Nat Joe RN Position: [facility] OB RN Member Role: Primary Care Nurse Name: Klaudia Almanzar RN Position: [facility] RN Member Role: Primary Care Nurse Name: Jo Lim RN Position: [facility] AMB Nurse Member Role: Primary Care Nurse Name: Susan Leigh MD Position: [facility] General Pediatrics MD Member Role: PCP Address: Address: [address] [place] [address]- Name: Darrian Truong Position: [facility] ED KHAI MARTE Name: Lorie Antonio RN Position: [facility] ED RN W/OE and Tasks Member Role: Patient Care Provider Name: Gina Leija MD Position: [facility] Resident Member Role: ED Resident Address: Address: [address] [place] [address]- Name: Maikol Napoles MD Position: S Resident Member Role: Admitting Physician Address: Address: [address] [place] [address]- Care Team Related Persons Name: GRADY BEARDEN Address: home [address] [place] [address] Name: NEENA COLE Address: [employer] Address: home [address] [place] [address] [place] Name: GRADY COLE Address: home [address] [place] [address] Name: LUANNE SUTTON Address: home [address] [place] [address]
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
== END 2023-08-17 19:53 | disposition home or self-care (01) ==
PROVIDERS: Emergency Provider Internal Medicine
DX: Z48.02 Encounter for removal of sutures (principal); Z79.899 Other long term (current) drug therapy
CPT/HCPCS: 99282; 99283

== ENCOUNTER 2023-11-21 15:01 | Emergency (ER) | payer OTHER, SELFPAY ==
--- NOTE | ~2023-11-21 | US_ITS ---
EXAMINATION: US ABDOMEN LIMITED CLINICAL INFORMATION: Left upper quadrant abdominal pain, assess spleen. COMPARISON: CT abdomen pelvis 01/27/2020. TECHNIQUE: Real-time imaging of the right upper quadrant abdominal viscera. FINDINGS: SPLEEN: Normal. Spleen spans 11.6 cm in maximal diameter. No focal splenic lesions identified. LEFT KIDNEY: Normal. No hydronephrosis. No renal calculi or focal parenchymal lesions. The kidney measures 10.7 cm in maximum dimension. FREE FLUID: None. US/US abdomen limited IMPRESSION: Normal appearance of the spleen and left kidney.
[2023-11-21 15:13] VITALS: BP 147/105; PULSE 92; RESP 18; TEMP 36.9; O2SAT 97; BMI 22.7
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
[2023-11-21 15:43] VITALS: BP 159/109; PULSE 92; RESP 18; TEMP 36.5; O2SAT 99
[2023-11-21 15:51] LABS: Amphetamine Screen Urine Not Detected (Not Detect); Appearance Urine Cloudy; Barbiturates, Urine Not Detected (Not Detect); Benzodiazepines Screen Urine Not Detected (Not Detect); Cannabinoid Screen Urine POSITIVE (Not Detect); Cocaine Screen Urine POSITIVE (Not Detect); Color Urine Dark Yellow; Fentanyl, urine Not Detected (Not Detect); Glucose Urine UA Negative (Negative); Leukocyte Esterase Urine Negative (Negative); Nitrite Urine Negative (Negative); Opiate Screen Urine Not Detected (Not Detect); PH 5.5 (5.0-9.0); Phencyclidine Screen Urine Not Detected (Not Detect); Urine Blood Negative (Negative); Urine Ketones Trace mg/dL (Negative); Urine Protein Trace mg/dL (Neg-Trace)
[2023-11-21 15:53] LABS: MANUAL DIFF FLAG NO
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
[2023-11-21 15:59] LABS: Basophils Absolute Auto 0.1 X10*3/uL (0.0-0.2); Basophils Percent Auto 0.6 % (0-2); Eosinophils Absolute Auto 0.2 X10*3/uL (0.0-0.4); Hematocrit 39.3 % (37.0-47.0); Hemoglobin 13.9 g/dl (12.0-16.0); Imm Gran Abs Auto 0.04 X10*3/uL (0.00-0.03); Imm Gran Pct Auto 0.4 % (0.0-0.4); Lymphocytes Absolute Auto 3.1 X10*3/uL (1.2-4.9); Lymphocytes Percent Auto 27.2 % (20-40); Mean Corpuscular HGB Conc 35.4 g/dl (31.0-35.0); Mean Corpuscular Hemoglobin 29.4 pg (27.0-33.0); Mean Corpuscular Volume 83.1 fL (80.0-98.0); Mean Platelet Volume 11.1 fL (9.4-12.3); Monocytes Absolute Auto 0.9 X10*3/uL (0.1-1.2); Neutrophils Absolute Auto 6.9 x10*3/uL (2.0-8.3); Neutrophils Percent Auto 61.8 % (45-73); Platelet Count 240 X10*3/uL (160-400); Red Blood Count 4.73 X10*6/uL (4.20-5.50); Red Cell Distribution Width 13.4 % (11.0-16.0); White Blood Count 11.2 X10*3/uL (4.8-10.8)
[2023-11-21 16:10] LABS: Alanine Aminotransferase 11 U/L (0-31); Albumin Level 4.6 g/dL (3.5-5.0); Alkaline Phosphatase 70 U/L (39-117); Anion Gap 11 (12-20); Aspartate Amino Transferase 16 U/L (5-31); Bilirubin Total 0.7 mg/dL (0.0-1.0); Blood Urea Nitrogen 8 mg/dL (9-16); Calcium 8.9 mg/dL (8.4-10.2); Carbon Dioxide 27 mmol/L (22-29); Chloride 105 mmol/L (96-108); Creatinine Clr Calc Pharmacy 68.3; Estimated Glomerular Filt Rate > 60; Ethanol < 10 mg/dL; Glucose Random 93 mg/dL (60-115); Lipase 21 U/L (8-78); Magnesium 2.1 mg/dL (1.6-2.6); Potassium 3.4 mmol/L (3.3-5.1); Sodium 140 mmol/L (135-145)
[2023-11-21 16:55] LABS: HCG Quantitative < 2 mIU/mL
--- NOTE | 2023-11-21 18:45 | PC.NURSE ---
Patient resting quietly with eyes closed. Breathing even and unlabored.
[2023-11-21 22:21] VITALS: BP 150/93; PULSE 70; RESP 15; TEMP 36.6; O2SAT 99
--- NOTE | 2023-11-22 05:41 | PC.NURSE ---
Pt ambulated to the bathroom independently. Given a sandwich and water, per pt request. IV removed at this time.
== END 2023-11-22 09:05 | disposition still patient (30) ==
PROVIDERS: Nurse Practitioner Family; Emergency Provider Emergency Medicine
DX: F23 Brief psychotic disorder (principal); F14.10 Cocaine abuse, uncomplicated; F33.1 Major depressive disorder, recurrent, moderate; M25.522 Pain in left elbow; R10.12 Left upper quadrant pain; Z79.899 Other long term (current) drug therapy
CPT/HCPCS: 36415; 76705; 80053; 80307; 81003; 83690; 83735; 84702; 85025; 99284; S9485

== ENCOUNTER 2023-11-22 17:03 | Emergency (ER) | payer OTHER, SELFPAY | END 2023-11-22 19:19 | disposition left against medical advice (07) | LOC: HO.ED 18:43 | PROVIDERS: Emergency Provider Emergency Medicine | DX: R10.9 Unspecified abdominal pain (principal) ==

== ENCOUNTER 2023-11-23 10:56 | Emergency (ER) | payer OTHER, SELFPAY ==
--- NOTE | ~2023-11-23 | US_ITS ---
EXAMINATION: US PELVIS CLINICAL INFORMATION: Left pelvic pain; the last menstrual period was 2 weeks prior. COMPARISON: None available. TECHNIQUE: Ultrasound of the pelvis is performed using both transabdominal and transvaginal transducers along with Doppler. Transvaginal imaging is performed due to inadequate visualization transabdominally. FINDINGS: Uterus: The uterus is anteverted and anteflexed. The uterus measures 7.2 x 3.6 x 5.1 cm. Nabothian cysts are seen within the cervix. The double wall endometrial thickness is 3 mm. The uterus is smooth in contour. There are small subendometrial calcifications, which may be a sequela of old infection or related to small fibroids. Adnexa: Both ovaries are visualized. There is normal color flow to the adnexa. There is no ovarian torsion. There is no pelvic ascites or fluid collection. Right ovary measures 3.0 x 1.0 x 1.2 cm, volume 1.9 mL. Left ovary measures 2.7 x 1.4 x 1.8 cm, volume 3.6 mL. US/US pelvic ovarian doppler IMPRESSION: 1. Nabothian cysts are seen within the cervix. 2. There are small subendometrial calcifications, which may be a sequela of old infection or related to small fibroids.
--- NOTE | ~2023-11-23 | CT_ITS ---
EXAMINATION: CT ABDOMEN AND PELVIS WITH CONTRAST CLINICAL INFORMATION: Lower abdominal pain COMPARISON: 01/27/2020 TECHNIQUE: Multidetector volumetric images were obtained from the superior aspect of the liver through the pubic symphysis following administration 85 mL of Omnipaque 350 intravenous contrast. Sagittal and coronal reformatted images were obtained on the technologist's workstation. Oral contrast: No This CT examination was performed using dose optimization techniques as appropriate, variously including the following: *Automated exposure control *Adjustment of mA and/or kV according to patient size (this includes techniques or standardized protocols for targeted exams where dose is matched to indication/reason for exam; i.e. extremities or head) *Use of iterative reconstruction technique DLP: 322 mGy-cm FINDINGS: MILL MANAGER: Nonobstructive bowel pattern. Phleboliths. LUNG BASES: The visualized lung bases are unremarkable. LIVER, GALLBLADDER, AND BILIARY TREE: The liver is normal in size, shape, and attenuation. Hypodensity adjacent to the falciform ligament likely focal fatty deposition. No focal hepatic lesion or biliary ductal dilatation is present. The gallbladder is unremarkable with no evidence of radiopaque gallstones, gallbladder wall thickening, or obvious pericholecystic inflammatory changes. PANCREAS: Unremarkable. SPLEEN: Unremarkable. ADRENAL GLANDS: Unremarkable. KIDNEYS AND URETERS: The kidneys are normal in size, shape, and attenuation. No hydronephrosis, hydroureter, or calculi seen. No perinephric stranding. BLADDER: Underdistended. GASTROINTESTINAL TRACT: Moderate gastric distention with gastric fundal wall thickening. Nonobstructive bowel pattern. Appendix not identified. No right lower quadrant inflammatory changes. Sigmoid thickening likely due to under distention. No pericolonic inflammation noted. ABDOMINAL WALL: Small fat filled umbilical hernia. LYMPH NODES: Normal. VASCULAR: Atherosclerotic calcifications nonaneurysmal aorta and iliac arteries. Unremarkable inferior vena cava and iliac veins. Patent portal system. PELVIC VISCERA: Prominent left periuterine vessels and left gonadal vein. Pelvic phleboliths. OSSEOUS STRUCTURES: Unremarkable. CT/CT abdomen pelvis w IV con IMPRESSION: No acute intra-abdominal or pelvic pathology. Gastric wall thickening, gastritis not excluded. Prominent left periuterine vessels and left gonadal vein, correlate clinically regarding pelvic congestion syndrome. Fleischner guidelines were followed.
--- NOTE | ~2023-11-23 | US_ITS ---
EXAMINATION: US PELVIS CLINICAL INFORMATION: Left pelvic pain; the last menstrual period was 2 weeks prior. COMPARISON: None available. TECHNIQUE: Ultrasound of the pelvis is performed using both transabdominal and transvaginal transducers along with Doppler. Transvaginal imaging is performed due to inadequate visualization transabdominally. FINDINGS: Uterus: The uterus is anteverted and anteflexed. The uterus measures 7.2 x 3.6 x 5.1 cm. Nabothian cysts are seen within the cervix. The double wall endometrial thickness is 3 mm. The uterus is smooth in contour. There are small subendometrial calcifications, which may be a sequela of old infection or related to small fibroids. Adnexa: Both ovaries are visualized. There is normal color flow to the adnexa. There is no ovarian torsion. There is no pelvic ascites or fluid collection. Right ovary measures 3.0 x 1.0 x 1.2 cm, volume 1.9 mL. Left ovary measures 2.7 x 1.4 x 1.8 cm, volume 3.6 mL. US/US pelvic and transvaginal IMPRESSION: 1. Nabothian cysts are seen within the cervix. 2. There are small subendometrial calcifications, which may be a sequela of old infection or related to small fibroids.
[2023-11-23 11:12] VITALS: BP 174/117; PULSE 114; RESP 20; TEMP 37.1; O2SAT 96; BMI 20.5
--- NOTE | 2023-11-23 11:12 | ED_ITS ---
HPI - General Adult General Chief complaint: Abdominal Pain Stated complaint: Lower abd pain Time Seen by Provider: 11/23/23 12:10 Source: patient Mode of arrival: ambulatory Limitations: no limitations History of Present Illness HPI narrative: 43-year-old female presents for evaluation of lower abdominal pain worse the left lower quadrant ongoing for the past few days. Patient states pain is severe in nature, not going away. She also tells me that she has been having heavy vaginal bleeding and she is wondering if she is having lower abdominal pain because of her pelvic region. She states she has never had pain like this before. She reports her last normal period was 2 weeks ago and she just got her period again. Tells me she is going through 3-4 pads per day. Bright red with some clots. Denies fevers, chills, nausea, vomiting, headache, vision changes, chest pain, shortness of breath. Related Data Previous Rx's Medication Instructions Recorded amoxicillin 500 mg tablet 1,000 mg (2 x 500 mg) PO Q12H #40 09/21/22 tabs prednisone 20 mg tablet 40 mg (2 x 20 mg) PO DAILY #10 tabs 09/21/22 cephalexin 500 mg capsule 500 mg PO Q6H 10 days #40 caps 07/25/23 naproxen 500 mg tablet (Naprosyn) 500 mg PO BID #20 tabs 07/25/23 bacitracin zinc 500 unit/gram 1 appl topical TID 7 days #14.2 08/17/23 topical ointment grams lanolin-mineral oil lotion 1 appl topical DAILY #250 mL 08/17/23 (Eucerin Original lotion) cefuroxime axetil 250 mg tablet 250 mg PO BID 7 days #14 tabs 11/23/23 Allergies Allergy/AdvReac Type Severity Reaction Status Date / Time No Known Allergies Allergy Verified 08/25/23 11:50 [No Known Allergies*] Review of Systems 2 Review of Systems: Yes all other systems are reviewed and are negative [facility] Past Medical History Attestation statement: The following information was validated with the patient. Source: old records reviewed and nursing notes reviewed Medical History Active substance abuse Acute anxiety Depression Social History Social History Alcohol intake: never Substance Use Type: Crack/Cocaine Physical Exam ED Vital Signs: Vital Signs - 24 hr 11/23/23 11:12 11/23/23 13:38 Temperature 98.8 F Pulse Rate 114 H 76 Respiratory Rate 20 19 Blood Pressure 174/117 H 130/76 Pulse Oximetry 96 95 Oxygen Delivery Method Room Air BMI result Body Mass Index 20.5 vss Appearance: Alert.? Oriented X3.? No acute distress.?Anxious appearing Head: Normocephalic, atraumatic, no step-offs or deformities Eyes: Pupils equal, round and reactive to light.?? Neck: Normal inspection.? Neck supple.? CVS: Normal heart rate and rhythm.? Pulses normal.? Respiratory: No respiratory distress.? Breath sounds normal.? Abdomen: Soft and TTP to lower abdomen L>R.?Normal BS Skin: Skin warm and dry.? Normal skin color.? Normal skin turgor.? Extremities: No lower extremity edema.? No calf ttp. 5/5 strength to bilateral upper and lower extremities Neuro: Oriented X 3.? No motor deficit.? No sensory deficit. CN 2-12 intact Course Course Course Narrative: This is a rapid medical exam: Additional HPI, ROS, PE not included below will be deferred to primary provider. Patient is a 43-year-old female presenting to the ED with 3 weeks of abdominal pain. States began as upper abdominal pain and has progressed to LLQ pain. Also complains of headaches and intermittent blurred vision. Denies urinary symptoms. States menses was late and then early. BP 174/117 in triage. Plan: labs, UA Reevaluation(s) Reevaluation #1: CBC unremarkable. No leukocytosis or anemia. Chemistry pending. UA with positive bacteria/trace, positive leukocyte esterases, patient does have lower abdominal pain will treat with 1 g ceftriaxone to cover for infection. Time: 12:31 Reevaluation #2: Chemistry no acute findings requiring intervention. Negative trop negative beta hCG. Negative lactic acid. CT abdomen and pelvis no acute intra-abdominal or pelvic pathology. Gastric wall thickening question gastritis however no symptoms of gastritis at this time unlikely. Prominent left periuterine vessels and left gonadal vein correlate clinically regarding pelvic congestion syndrome. Ultrasound pending. Time: 15:29 Reevaluation #3: Ultrasound pending and patient was seen by recovery pending disposition and plan. I will put in a care team consult prior to patient being discharged she should be seen by the care team/recovery. Ultrasound pending signed out to Ernie Saldaña Time: 15:40 Additional Reevaluation(s): I did just speak to recovery who evaluated patient patient not SI or HI, patient [facility] 10:00 she is scheduled to have an appointment she is excited to see them. As long as ultrasound is negative patient be discharged home. Medications Administered Discontinued Medications Generic Name Dose Route Start Last Admin Trade Name Freq PRN Reason Stop Dose Admin Acetaminophen 975 mg 11/23/23 14:18 11/23/23 14:40 Acetaminophen 325 Mg Tablet PO 11/23/23 14:19 975 mg ONCE ONE Administration Ceftriaxone Sodium 1 gm/ 50 mls @ 100 mls/hr 11/23/23 12:31 11/23/23 13:20 Sodium Chloride IV 11/23/23 13:00 100 mls/hr ONCE ONE Administration Iohexol 100 ml 11/23/23 12:53 11/23/23 12:54 Iohexol 350 Mg/Ml 100 Ml Infus..Btl IV 11/23/23 12:54 85 ml ONCE ONE Administration Lorazepam 1 mg 11/23/23 14:18 11/23/23 14:40 Lorazepam 1 Mg Tablet PO 11/23/23 14:19 1 mg ONCE ONE Administration Medical Decision Making Medical Decision Making MDM Narrative: 43 year old female presents w/ lower abd pain x few days PE Soft and TTP to lower abdomen L>R.?Normal BS. Anxious appearing History and physical exam concerning for viral illness versus menstrual cramping versus early menses. Unlikely acute blood loss anemia, torsion, ectopic , acute abdomen, appendicitis, diverticulitis, obstruction, pancreatitis or cholecystitis. Will rule out metabolic derangements and urinary tract infection. Hypertension likely secondary to significant anxiety. Unlikely hypertensive urgency or emergency Although she reported headache and blurred vision to nursing patient denied this to me. Plan at this time labs, imaging. Differential Diagnosis Differential Diagnoses: The differential diagnosis associated with the presentation includes History and physical exam concerning for viral illness versus menstrual cramping versus early menses. Unlikely acute blood loss anemia, torsion, ectopic , acute abdomen, appendicitis, diverticulitis, obstruction, pancreatitis or cholecystitis. Will rule out metabolic derangements and urinary tract infection. Hypertension likely secondary to significant anxiety. Unlikely hypertensive urgency or emergency Admission/Observation Consideration of admission/observation: Escalation of care including admission/observation considered Lab Data MDM Lab Attestation statement: I reviewed the patient's lab results. 11/23/23 12:03 11/23/23 12:03 Labs: Lab Results 11/23/23 11/23/23 11/23/23 Range/Units 12:03 12:10 13:09 WBC 8.2 (4.8-10.8) X10*3/uL RBC 4.63 (4.20-5.50) X10*6/uL Hgb 13.6 (12.0-16.0) g/dl Hct 37.9 (37.0-47.0) % MCV 81.9 (80.0-98.0) fL MCH 29.4 (27.0-33.0) pg MCHC 35.9 H (31.0-35.0) g/dl RDW 13.5 (11.0-16.0) % Plt Count 229 (160-400) X10*3/uL MPV 10.7 (9.4-12.3) fL Immature Gran % (Auto) 0.1 (0.0-0.4) % Neut % (Auto) 64.0 (45-73) % Lymph % (Auto) 25.3 (20-40) % [place] % (Auto) 8.4 (2-11) % Eos % (Auto) 1.5 (0-4) % Baso % (Auto) 0.7 (0-2) % Lymph # (Auto) 2.1 (1.2-4.9) X10*3/uL [place] # (Auto) 0.7 (0.1-1.2) X10*3/uL Eos # (Auto) 0.1 (0.0-0.4) X10*3/uL Baso # (Auto) 0.1 (0.0-0.2) X10*3/uL Abs Immat Gran (auto) 0.01 (0.00-0.03) X10*3/uL Absolute Neuts (auto) 5.2 (2.0-8.3) x10*3/uL Absolute Nucleated RBC 0.000 (0.0-0.012) X10*3/uL Nucleated RBC % (auto) 0.0 (0.0-0.2) /100WBC Sodium 138 (135-145) mmol/L Potassium 3.5 (3.3-5.1) mmol/L Chloride 108 (96-108) mmol/L Carbon Dioxide 24 (22-29) mmol/L Anion Gap 10 L (12-20) BUN 8 L (9-16) mg/dL Creatinine 0.69 (0.5-1.4) mg/dL Estim Creat Clear Calc 90.9 Estimated GFR > 60 Random Glucose 94 (60-115) mg/dL Lactic Acid 0.7 (0.5-2.0) mmol/L Calcium 9.2 (8.4-10.2) mg/dL Total Bilirubin 0.6 (0.0-1.0) mg/dL AST 15 (5-31) U/L ALT 9 (0-31) U/L Alkaline Phosphatase 68 (39-117) U/L Troponin I High Sens < 2.7 (<3.5-17.0) ng/L Total Protein 6.7 (6.5-8.0) g/dL Albumin 4.3 (3.5-5.0) g/dL Lipase 48 (8-78) U/L Beta HCG, Quant < 2 mIU/mL Urine Color RED Urine Appearance Turbid Urine pH 6.5 (5.0-9.0) Ur Specific [place] >= 1.030 H (1.005-1.025) Urine Protein 300 (3+) H (Neg-Trace) mg/dL Urine Glucose (UA) Negative (Negative) mg/dL Urine Ketones 15 (Negative) mg/dL Urine Blood Large (3+) H (Negative) Urine Nitrite Negative (Negative) Ur Leukocyte Esterase Trace H (Negative) Urine RBC >20 H (0-2) /HPF Urine WBC 0-5 (0-5) /HPF Ur Squamous Epith Cells 0-2 (0-2) /HPF Urine Bacteria Trace (None Seen) Hyaline Casts 0-2 (0-2) /LPF Independent Interpretation I performed an independent interpretation of an: Ultrasound and CT Scan Radiology Impression Discussion of test interpretation with radiology: I have reviewed the radiologist's reading. External Record Review External record reviewed: Inpatient record, Office record, Outpatient record, Prior outpatient labs, Prior outpatient radiology, Primary care record and Outside ED record Critical Care Time Critical Care Time Critical Care Time: Yes Total Critical Care Time: 35 Attestation: I attest to this time spent taking care of the patient, obtaining history, physical, reviewing labs, imaging, speaking to my attending Discharge Plan Discharge Clinical Impression: Abdominal pain, Urinary tract infection, Substance abuse Patient Disposition: Home, Self-Care Instructions: Abdominal Pain (ED) Additional Instructions: Take your medications as prescribed. If you were prescribed antibiotics today, it is important that you take your medication to their entirety, do not skip any doses, do not finish them early. Follow-up with your primary care provider this week. Return to the emergency department with new or worsening symptoms. Such as fevers, chills, chest pain, shortness of breath, nausea, vomiting, dizziness, headache, vision changes, lethargy In case of emergency call 911 Prescriptions: New cefuroxime axetil 250 mg tablet 250 mg PO BID 7 Days Qty: 14 0RF No Action prednisone 20 mg tablet 40 mg PO DAILY Qty: 10 0RF amoxicillin 500 mg tablet 1,000 mg PO Q12H Qty: 40 0RF Eucerin Original Lotion 1 appl topical DAILY Qty: 250 0RF bacitracin zinc 500 unit/gram ointment 1 appl topical TID 7 Days Qty: 14.2 0RF cephalexin 500 mg capsule 500 mg PO Q6H 10 Days Qty: 40 0RF naproxen [Naprosyn] 500 mg tablet 500 mg PO BID Qty: 20 0RF Referrals: Physician,Unknown J [Primary Care Provider] - 2 days Stand Alone Forms: Work/School Release
[2023-11-23 12:07] LABS: MANUAL DIFF FLAG NO
[2023-11-23 12:09] LABS: Basophils Absolute Auto 0.1 X10*3/uL (0.0-0.2); Basophils Percent Auto 0.7 % (0-2); Eosinophils Absolute Auto 0.1 X10*3/uL (0.0-0.4); Eosinophils Percent Auto 1.5 % (0-4); Hematocrit 37.9 % (37.0-47.0); Hemoglobin 13.6 g/dl (12.0-16.0); Imm Gran Abs Auto 0.01 X10*3/uL (0.00-0.03); Imm Gran Pct Auto 0.1 % (0.0-0.4); Lymphocytes Absolute Auto 2.1 X10*3/uL (1.2-4.9); Lymphocytes Percent Auto 25.3 % (20-40); Mean Corpuscular HGB Conc 35.9 g/dl (31.0-35.0); Mean Corpuscular Hemoglobin 29.4 pg (27.0-33.0); Mean Corpuscular Volume 81.9 fL (80.0-98.0); Mean Platelet Volume 10.7 fL (9.4-12.3); Monocytes Absolute Auto 0.7 X10*3/uL (0.1-1.2); Monocytes Percent Auto 8.4 % (2-11); Neutrophils Absolute Auto 5.2 x10*3/uL (2.0-8.3); Platelet Count 229 X10*3/uL (160-400); Red Blood Count 4.63 X10*6/uL (4.20-5.50); Red Cell Distribution Width 13.5 % (11.0-16.0); White Blood Count 8.2 X10*3/uL (4.8-10.8)
[2023-11-23 12:24] LABS: Appearance Urine Turbid; Color Urine RED; Glucose Urine UA Negative (Negative); Leukocyte Esterase Urine Trace (Negative); Nitrite Urine Negative (Negative); Specific Gravity - Urine >= 1.030 (1.005-1.025); UMIC TRIGGER UACC YES; Urine Blood Large (3+) (Negative); Urine Ketones 15 mg/dL (Negative); Urine Protein 300 (3+) mg/dL (Neg-Trace)
[2023-11-23 12:27] LABS: PH 6.5 (5.0-9.0); RBC Urine >20 /HPF (0-2); Squamous Epithelial Cell Urine 0-2 /HPF (0-2); WBC Urine 0-5 /HPF (0-5)
[2023-11-23 12:28] LABS: Bacteria Urine Trace (None Seen); Hyaline Casts Urine 0-2 /LPF (0-2)
[2023-11-23 12:34] LABS: Alanine Aminotransferase 9 U/L (0-31); Albumin Level 4.3 g/dL (3.5-5.0); Alkaline Phosphatase 68 U/L (39-117); Anion Gap 10 (12-20); Aspartate Amino Transferase 15 U/L (5-31); Bilirubin Total 0.6 mg/dL (0.0-1.0); Blood Urea Nitrogen 8 mg/dL (9-16); Calcium 9.2 mg/dL (8.4-10.2); Carbon Dioxide 24 mmol/L (22-29); Chloride 108 mmol/L (96-108); Creatinine Clr Calc Pharmacy 90.9; Estimated Glomerular Filt Rate > 60; Glucose Random 94 mg/dL (60-115); HCG Quantitative < 2 mIU/mL; Lipase 48 U/L (8-78); Potassium 3.5 mmol/L (3.3-5.1); Sodium 138 mmol/L (135-145); Total Protein 6.7 g/dL (6.5-8.0)
[2023-11-23] MEDS: iohexoL 350 MG/ML 100 ML INFUS..BTL IV (12:54)
[2023-11-23] MEDS: cefTRIAXone sodium 1 GM in 0.9 % Sodium Chloride 50 ML IV (13:20)
[2023-11-23 13:24] LABS: Troponin-I High Sensitivity < 2.7 ng/L (<3.5-17.0)
[2023-11-23 13:31] LABS: Lactic Acid 0.7 mmol/L (0.5-2.0)
[2023-11-23 13:38] VITALS: BP 130/76; PULSE 76; RESP 19; O2SAT 95
[2023-11-23] MEDS: Acetaminophen 325 MG TABLET 975 MG PO (14:40)
[2023-11-23] MEDS: LORazepam 1 MG TABLET PO (14:40)
--- NOTE | 2023-11-23 15:24 | MHC.RECOVRN ---
Met with pt in [id number] after pt expressed interest in speaking with recovery to RN. Pt had presented to the ED with abdominal pain, currently awaiting imaging results. Pt sitting in bed, awake, alert, easily engages in conversation. Pt reports cocaine use, INH, $40 daily x a few months. Pt reprots hx OUD, had been on methadone and tapered 2 or 3 years ago. Pt denies opioid cravings. Pt reports recent stress has led to return to cocaine use. Pt reports longest period in recovery was years. Discussed treatment options, including inpatient and outpatient. Pt would like to follow up with the [facility] to discuss medications for stimulant use disorder. Appt made for at 10AM. Pt provided with [facility] information as well as other written recovery resources. Pt denies other questions or concerns for t/w.
[2023-11-23 17:28] LABS: Amphetamine Screen Urine Not Detected (Not Detect); Barbiturates, Urine Not Detected (Not Detect); Benzodiazepines Screen Urine Not Detected (Not Detect); Cannabinoid Screen Urine POSITIVE (Not Detect); Cocaine Screen Urine POSITIVE (Not Detect); Fentanyl, urine Not Detected (Not Detect); Opiate Screen Urine Not Detected (Not Detect); Phencyclidine Screen Urine Not Detected (Not Detect)
[2023-11-23 21:30] LABS: Ethanol < 10 mg/dL
--- NOTE | 2023-11-24 05:37 | MHC.CARE ---
Pt was staying overnight so that she could get into [facility] this morning. At 0530 she woke up and decided that she received enough rest and would like to be discharged. After consulting with the MD and speaking with the pt, it was determined that she was not a risk to herself or others and she could be d/c'd into the community. Pt was given a resource booklet as she does not know where she will be staying, so t/w could not make an appropriate referral to a [facility]. Pt was able to contract for safety at the time of d/c.
== END 2023-11-24 05:40 | disposition home or self-care (01) ==
PROVIDERS: Physician Assistant; Registered Nurse Emergency; Emergency Provider Emergency Medicine
DX: N39.0 Urinary tract infection, site not specified (principal); R10.32 Left lower quadrant pain; N93.9 Abnormal uterine and vaginal bleeding, unspecified; R51.9 Headache, unspecified; H53.8 Other visual disturbances; R10.2 Pelvic and perineal pain; F14.10 Cocaine abuse, uncomplicated; F41.9 Anxiety disorder, unspecified; Z79.899 Other long term (current) drug therapy
CPT/HCPCS: 36415; 74177; 76830; 76856; 80053; 80307; 81001; 83605; 83690; 84484; 84702; 85025; 87040; 93975; 96365; 96366; 99284; J0696; Q9967; S9485

== ENCOUNTER 2024-03-20 12:24 | Emergency (ER) | payer OTHER, SELFPAY ==
[2024-03-20 13:21] VITALS: BP 191/117; PULSE 86; RESP 18; O2SAT 99; BMI 21.7
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
[2024-03-20 13:42] VITALS: BP 119/118; PULSE 77; RESP 14; TEMP 36.9; O2SAT 99
[2024-03-20] MEDS: LORazepam 1 MG TABLET 2 MG PO (14:02)
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
[2024-03-20 14:10] LABS: MANUAL DIFF FLAG NO
[2024-03-20 14:12] LABS: Basophils Absolute Auto 0.1 X10*3/uL (0.0-0.2); Basophils Percent Auto 0.5 % (0-2); Eosinophils Absolute Auto 0.3 X10*3/uL (0.0-0.4); Eosinophils Percent Auto 3.2 % (0-4); Hematocrit 39.3 % (37.0-47.0); Imm Gran Abs Auto 0.02 X10*3/uL (0.00-0.03); Imm Gran Pct Auto 0.2 % (0.0-0.4); Lymphocytes Absolute Auto 2.5 X10*3/uL (1.2-4.9); Lymphocytes Percent Auto 26.6 % (20-40); Mean Corpuscular HGB Conc 35.6 g/dl (31.0-35.0); Mean Corpuscular Hemoglobin 29.6 pg (27.0-33.0); Mean Corpuscular Volume 83.1 fL (80.0-98.0); Monocytes Absolute Auto 0.9 X10*3/uL (0.1-1.2); Monocytes Percent Auto 9.5 % (2-11); Neutrophils Absolute Auto 5.6 x10*3/uL (2.0-8.3); Platelet Count 254 X10*3/uL (160-400); Red Blood Count 4.73 X10*6/uL (4.20-5.50); Red Cell Distribution Width 13.2 % (11.0-16.0); White Blood Count 9.3 X10*3/uL (4.8-10.8)
[2024-03-20 14:50] VITALS: BP 117/112
[2024-03-20] MEDS: cloNIDine HCL 0.1 MG TABLET PO (14:50)
[2024-03-20 15:04] LABS: Alanine Aminotransferase 24 U/L (0-31); Albumin Level 4.5 g/dL (3.5-5.0); Alkaline Phosphatase 73 U/L (39-117); Anion Gap 12 (12-20); Aspartate Amino Transferase 20 U/L (5-31); Bilirubin Direct 0.2 mg/dL (0.0-0.5); Bilirubin Total 0.5 mg/dL (0.0-1.0); Blood Urea Nitrogen 6 mg/dL (9-16); Calcium 9.6 mg/dL (8.4-10.2); Carbon Dioxide 27 mmol/L (22-29); Chloride 105 mmol/L (96-108); Creatinine Clr Calc Pharmacy 83.7; Estimated Glomerular Filt Rate > 60; Ethanol < 10 mg/dL; Glucose Random 73 mg/dL (60-115); Magnesium 1.9 mg/dL (1.6-2.6); Potassium 3.6 mmol/L (3.3-5.1); Sodium 140 mmol/L (135-145); Total Protein 6.8 g/dL (6.5-8.0)
[2024-03-20 15:05] LABS: HCG Quantitative < 2 mIU/mL; TSH reflex Free T4 1.93 uIU/mL (0.32-4.0)
--- NOTE | 2024-03-20 15:39 | PC.NURSE ---
Pt observed snoring on soundly on bed.
[2024-03-20 15:45] LABS: Amphetamine Screen Urine Not Detected (Not Detect); Barbiturates, Urine POSITIVE (Not Detect); Benzodiazepines Screen Urine Not Detected (Not Detect); Buprenorphine Scr Not Detected (Not Detect); Cannabinoid Screen Urine POSITIVE (Not Detect); Cocaine Screen Urine POSITIVE (Not Detect); Fentanyl, urine POSITIVE (Not Detect); Methadone Screen, Urine Not Detected (Not Detect); Opiate Screen Urine Not Detected (Not Detect); Oxycodone Screen Urine Not Detected (Not Detect); Phencyclidine Screen Urine Not Detected (Not Detect)
[2024-03-20 16:49] VITALS: BP 114/83; PULSE 66; RESP 14; O2SAT 97
--- NOTE | 2024-03-20 16:56 | PC.NURSE ---
RN report given to IMAN Winkler in pod for transfer of Pt. VSS, NAD noted and Pt is resting comfortably on stretcher.
--- NOTE | 2024-03-20 19:08 | PC.NURSE ---
patient meeting with care team presently prior client coming out about every 10 minutes asking for snacks and or condiments patient appears in no distress
[2024-03-21 06:18] VITALS: BP 157/98; PULSE 77; TEMP 36.9; O2SAT 98
[2024-03-21] MEDS: hydrOXYzine HCL 50 MG TABLET PO ×2 (06:39→06:43)
--- NOTE | 2024-03-21 09:01 | MHC.RECOVRN ---
Pts referral sent to [facility].
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
[2024-03-21] MEDS: methADONE HCl 20 MG/2 ML ORAL.CONC PO (09:47)
[2024-03-21] MEDS: LORazepam 1 MG TABLET PO (12:04)
[2024-03-21] MEDS: Nicotine 21 MG PATCH.TD24 TRANSDERMA (12:04)
[2024-03-21] MEDS: methADONE HCl 20 MG/2 ML ORAL.CONC 5 MG PO (12:49)
--- NOTE | 2024-03-21 13:57 | MHC.RECOVRN ---
Addendum entered by Kathie Coates 03/21/24 13:59: Pt received total 25 mg methadone today. Plan to continue with [facility] and present to the [facility] in the morning. Referral has been sent. Original Note: [facility] not have bed availability. Discussed with pt, plan to go to [facility] for continued recovery support. To be transported via [facility]. RN, special agent in charge, and provider aware.
--- NOTE | 2024-03-21 14:00 | PC.NURSE ---
patient d/c with transport van to [facility]. ambulated off of unit with steady gait
--- OUTSIDE RECORDS SUMMARY | 2024-03-23 07:51 | XMS_ITS | Continuity of Care Document ---
Author Organization [facility] Address [address] [place] [id number]- Care Team Providers Care Newswriter Name Role Phone Not on Staff, PCP Primary Care Physician Unavail able Encounter [facility] Date(s): 10/06/23 - 10/08/[address] [address]- Encounter Diagnosis Dizziness(Final) - 10/05/23 Gait instability(Final) - 10/05/23 Cocaine use(Final) - 10/05/23 Discharge Disposition: A-D/C Home Attending Physician: Douglas Arzate MD Admitting Physician: Grupo Infante DO Referring Physician: Not on Staff, Referring [...] inactive(oldterm) 2 07/30/09 Given 1Result Comment: [facility] [id number] 2Admin Note: H1N1 Medications Fioricet Tablet 1 tablet, Tablet, By Mouth, Every 4 hours, PRN for Headache, Routine, 10/07/23 11:35:00 EST Notes: acetaminophen/butalbital/caffeine 325 mg-50 mg-40 mg oral tablet Start Date: 10/07/23 Stop Date: 10/08/23 Status: Discontinued KlonoPIN 1 mg oral tablet 1 tablet = 1 mg, By Mouth, Daily, # 14 tablet, 0 Refills, Maintenance, 10/08/23 11:09:00 EST, Tablet, [facility], Partial fill upon patient request if the prescription is for a scheduleII opioid drug., 155, cm, 10/07/23 11:04:00 EST, He... Start Date: 10/08/23 Stop Date: 10/22/23 Status: Ordered loratadine 10 mg oral tablet 10 mg, 1, tablet, By Mouth, Daily, # 20 tablet, Refills 0, Tot. Refills 0, Maintenance, 09/11/23 7:05:00 EST, Print Requisition, Partial fill upon patient request if the prescription is for a schedule II opioid drug. Start Date: 09/11/23 Stop Date: 09/18/23 Status: Ordered meclizine 25 mg oral tablet 1 tablet = 25 mg, By Mouth, Daily, PRN Other, for 30 days, For dizziness, # 30 tablet, 0 Refills, Acute 11/07/23 10:24:00 EST, 10/08/23 10:24:00 EST, Tablet, [facility], Partial fill upon patient request if the prescription is for a sche... Start Date: 10/08/23 Stop Date: 11/07/23 Status: Ordered olanzapine 2.5 mg oral tablet 2.5 mg, 1, tablet, TAKE 1 TABLET BY MOUTH TWICE A DAY NEEDED Start Date: 10/06/23 Status: Ordered oxyCODONE 5 mg oral tablet 5 mg, Tablet, By Mouth, Once, Routine, 10/08/23 9:00:00 EST, Stop date 10/08/23 9:00:00 EST Start Date: 10/08/23 Stop Date: 10/08/23 Status: Completed Seroquel 300 mg, By Mouth, Daily at [...] 02/13: positive cocaine, marijuana, benzo, opiates, methadone Results Radiology Reports * Exam Date Time Procedure Performing Provider Status 10/07/23 10:22 PM MRI Brain W/O Contrast Ofelia Ruvalcaba ; Auth (Verified) Notes: (MRI Brain W/O Contrast) Reason For Exam: Vertigo RESULT: MRI Brain W/O Contrast MRI Brain W/O Contrast INDICATION: Reason: Vertigo; Clinical Question(s): Vertigo; Special Instructions: Cube T2 sequence to cover the IAC's; Order Comment: Please see Reference Text for complete list of contraindications History of left elbow orthopedic surgery Vertigo TECHNIQUE: MRI of the brain was performed without contrast utilizing sagittal T1, axial T2, axial FLAIR, axial T2 CUBE 3D, axial SWAN, and axial DWI sequences. COMPARISON: CT scan of the head 10/05/2023 and MRI of the brain 03/25/2020 FINDINGS: BRAIN and EXTRA-AXIAL SPACES: The flow voids through the [place] are maintained, and thereis no restricted diffusion or abnormal susceptibility artifact. The cisternal and canalicular segments of the 7th and 8th cranial nerves are unremarkable on the high-resolution thin section T2-weighted images obtained through the internal auditory canals. The ventricles are normal in size. No mass effect or extra-axial fluid collection. The cervicomedullary junction is normal. Scattered small FLAIR bright foci are present within the supratentorial white matter, which are notsignificantly changed. EXTRACRANIAL SOFT TISSUES: Orbits are unremarkable. Paranasal sinuses and mastoids are unremarkable. BONES: Marrow signal is preserved. IMPRESSION: 1. No acute infarct. 2. No discrete lesion is noted within the internal auditory canals or cerebellopontine angle cisterns on the noncontrast thin section axial T2- weighted images through the internal auditory canals. 3. Scattered small FLAIR bright foci within the supratentorial white matter are similar. These are nonspecific, but may represent the sequela of an inflammatory process. WSN: [id number] Ordering Physician: Dustin Perez Dictated By: Pete Schmitt MD Dictated Date/Time: 10/08/23 7:39 am Reviewed By: Pete Schmitt MD Signed By: Pete Schmitt MD Signed Date/Time: 10/08/23 7:39 am Transcribed By: MIRANDA Transcribed Date/Time: 10/08/23 7:33 am * Exam Date Time Procedure Performing Provider Status 10/06/23 3:[address] Angio Neck Aisha Ayers; Lynne (Verified) Notes: (CT Angio Neck) Reason For Exam: Aneurysm, neck vessel(s);Other: RESULT: CT Angio Neck CT Angio Head, CT Angio Neck Hx of Present Illness: BIBA d t L sided abd pain, lightheadedness. Reportedly SI w hallucinations in triage but denies both for me. Denies HI. Endorses hx of SI w attempt at 19 years old. Denies CP SOB, N V D, numbness tingling. Endorses smoking cocaine this AM.; Reason: Other:; Neuro deficit, acute, stroke suspected; Clinical Question(s): Other:; Hematoma Aneurysm / Other: TECHNIQUE: CT angiogram of the head and neck was performed after bolus administration of intravenous contrast. 100 mL of Omnipaque 300 was administered intravenously. Coronal and sagittal MIP reformatted images were obtained. Additional 3-D images were created on a separate workstation under concurrent supervision by the attending radiologist. All stenoses are measured using NASCET criteria. Weight-based protocol using automatic tube modulation was used to optimize exposure parameters. RADIATION DOSE PARAMETERS: COMPARISON: Noncontrast CT head performed concurrently. FINDINGS: CTA OF THE NECK: Arch: There is a three vessel aortic arch. There is minimal atherosclerotic plaque of the aortic arch, but origins of the supra aortic vessels are patent. Right carotid system: The common carotid and cervical internal carotid arteries are patent. No stenosis (0%) by NASCET criteria. Left carotid system: The common carotid and cervical internal carotid arteries are patent. There iscalcified and noncalcified atherosclerotic plaque at the carotid bifurcation, but no ICA stenosis (0%) by NASCET criteria. There is a taplhw-xwta-kuvbgcjs vertebral artery system. Right vertebral: Patent. Left vertebral: Patent. Other: Soft tissues and bones: No evidence of lymphadenopathy or mass. The thyroid is unremarkable. Visualized lung apices are clear. No acute osseous abnormality. CTA OF THE HEAD: Anterior circulation: Bilateral intracranial ICAs and their GISELL and MCA branches are patent. Posterior circulation: Bilateral intracranial vertebral arteries, the basilar artery, and bilateralsuperior cerebellar and posterior cerebral artery branches are patent. Veins: Major dural venous sinuses are patent. Other: Soft tissues and bones: No midline shift or effacement of the basal cisterns. No space-occupying hemorrhage. No territorial loss of suazo-white matter differentiation. Orbits are unremarkable. Scattered ethmoid air cell opacities. No acute bony abnormality. IMPRESSION: 1. No acute intracranial large vessel occlusion. 2. Minimal atherosclerotic changes of the left carotid bulb without stenosis. Otherwise, unremarkable CTA of the neck. A preliminary report was issued to the emergency room by the [facility] service 10/06/2023 at 4:40 AM. WSN: [id number] Ordering Physician: Soha Ledesma Dictated By: Pete Schmitt MD Dictated Date/Time: 10/06/23 8:11 am Reviewed By: Pete Schmitt MD Signed By: Pete Schmitt MD Signed Date/Time: 10/06/23 8:11 am Transcribed By: MIRANDA Transcribed Date/Time: 10/06/23 8:00 am * Exam Date Time Procedure Performing Provider Status 10/06/23 3:[address] Angio Head Aisha Ayers; Auth (Verified) Notes: (CT Angio Head) Reason For Exam: Neuro deficit, acute, stroke suspected;Other: RESULT: CT Angio Head CT Angio Head, CT Angio Neck Hx of Present Illness: BIBA d t L sided abd pain, lightheadedness. Reportedly SI w hallucinations in triage but denies both for me. Denies HI. Endorses hx of SI w attempt at 19 years old. Denies CP SOB, N V D, numbness tingling. Endorses smoking cocaine this AM.; Reason: Other:; Neuro deficit, acute, stroke suspected; Clinical Question(s): Other:; Hematoma Aneurysm / Other: TECHNIQUE: CT angiogram of the head and neck was performed after bolus administration of intravenous contrast. 100 mL of Omnipaque 300 was administered intravenously. Coronal and sagittal MIP reformatted images were obtained. Additional 3-D images were created on a separate workstation under concurrent supervision by the attending radiologist. All stenoses are measured using NASCET criteria. Weight-based protocol using automatic tube modulation was used to optimize exposure parameters. RADIATION DOSE PARAMETERS: COMPARISON: Noncontrast CT head performed concurrently. FINDINGS: CTA OF THE NECK: Arch: There is a three vessel aortic arch. There is minimal atherosclerotic plaque of the aortic arch, but origins of the supra aortic vessels are patent. Right carotid system: The common carotid and cervical internal carotid arteries are patent. No stenosis (0%) by NASCET criteria. Left carotid system: The common carotid and cervical internal carotid arteries are patent. There iscalcified and noncalcified atherosclerotic plaque at the carotid bifurcation, but no ICA stenosis (0%) by NASCET criteria. There is a dpecep-sjxj-epzqbbcn vertebral artery system. Right vertebral: Patent. Left vertebral: Patent. Other: Soft tissues and bones: No evidence of lymphadenopathy or mass. The thyroid is unremarkable. Visualized lung apices are clear. No acute osseous abnormality. CTA OF THE HEAD: Anterior circulation: Bilateral intracranial ICAs and their GISELL and MCA branches are patent. Posterior circulation: Bilateral intracranial vertebral arteries, the basilar artery, and bilateralsuperior cerebellar and posterior cerebral artery branches are patent. Veins: Major dural venous sinuses are patent. Other: Soft tissues and bones: No midline shift or effacement of the basal cisterns. No space-occupying hemorrhage. No territorial loss of suazo-white matter differentiation. Orbits are unremarkable. Scattered ethmoid air cell opacities. No acute bony abnormality. IMPRESSION: 1. No acute intracranial large vessel occlusion. 2. Minimal atherosclerotic changes of the left carotid bulb without stenosis. Otherwise, unremarkable CTA of the neck. A preliminary report was issued to the emergency room by the [facility] service 10/06/2023 at 4:40 AM. WSN: [id number] Ordering Physician: Soha Ledesma Dictated By: Pete Schmitt MD Dictated Date/Time: 10/06/23 8:11 am Reviewed By: Pete Schmitt MD Signed By: Pete Schmitt MD Signed Date/Time: 10/06/23 8:11 am Transcribed By: MIRANDA Transcribed Date/Time: 10/06/23 8:00 am * Exam Date Time Procedure Performing Provider Status 10/05/23 11:[address] Head/Brain W/O Contrast Aisha Ayers; Auth (Verified) Notes: (CT Head/Brain W/O Contrast) Reason For Exam: dizziness, gait instability;Other: RESULT: CT Head/Brain W/O Contrast CT Head/Brain W/O Contrast Hx of Present Illness: BIBA d t L sided abd pain, lightheadedness. Reportedly SI w hallucinations in triage but denies both for me. Denies HI. Endorses hx of SI w attempt at 19 years old. Denies CP SOB, N V D, numbness tingling. Endorses smoking cocaine this AM.; Reason: Other:; dizziness, gait instability; Clinical Question(s): Subarachnoid Hemorrhage; Order Comment:. TECHNIQUE: Noncontrast head CT using axial technique and reconstructed in axial and coronal planes.Weight-based protocol using automatic tube modulation was used to optimize exposure parameters. COMPARISON: 06/11/2022. FINDINGS: BRAIN and EXTRA-AXIAL SPACES: No parenchymal hemorrhage, midline shift or mass effect. Suazo-white matter differentiation is well preserved. No acute infarct. Ventricles, sulci and basilar cisterns are normal. No white matter lesions. No subarachnoid hemorrhage, subdural or epidural collections. CALVARIUM, SKULL BASE AND SOFT TISSUES: No fractures or suspicious bony lesions. Mild mucosal thickening of the ethmoid air cells. The maxillary sinuses are clear. The sphenoid sinuses are clear. The mastoid air cells are clear. Visualized orbits and globes are intact. The extracranial soft tissues are unremarkable. IMPRESSION: No acute intracranial abnormality. I have personally reviewed the images and I agree with this report. WSN: [id number] Ordering Physician: Estrada Mcdaniel Dictated By: Rashawn Alaniz MD Dictated Date/Time: 10/05/23 11:58 p Reviewed By: Bernardo Ortiz MD Signed By: Bernardo Otriz MD Signed Date/Time: 10/06/23 0:03 am Transcribed By: MIRANDA Transcribed Date/Time: 10/05/23 11:51 pm * Exam Date Time Procedure Performing Provider Status 10/05/23 8:08 PM Chest 2 Views Frontal and Lat Wilman Sanchez; Auth (Verified) Notes: (Chest 2 Views Frontal and Lat) Reason For Exam: weakness;Other: RESULT: Chest 2 Views Frontal and Lat Chest 2 Views Frontal and Lat Hx of Present Illness: BIBA d t L sided abd pain, lightheadedness. Reportedly SI w hallucinations in triage but denies both for me. Denies HI. Endorses hx of SI w attempt at 19 years old. Denies CP SOB, N V D, numbness tingling. Endorses smoking cocaine this AM.; Reason: Other:; weakness; Clinical Question(s): Pneumonia COMPARISON: 06/11/2022 FINDINGS: LINES AND TUBES: None. LUNGS AND PLEURA: Clear lungs. Normal pulmonary vascularity. No pleural effusion. No pneumothorax. HEART, MEDIASTINUM AND EMILY: Heart is normal in size. Normal mediastinal and hilar contour. BONES AND SOFT TISSUES: No acute abnormality. IMPRESSION: No acute abnormality. WSN: [id number] Ordering Physician: Estrada Mcdaniel Dictated By: Nicho Mcdowell MD Dictated Date/Time: 10/05/23 8:09 pm Reviewed By: Nicho Mcdowell MD Signed By: Nicho Mcdowell MD Signed Date/Time: 10/05/23 8:09 pm Transcribed By: MIRANDA Transcribed Date/Time: 10/05/23 8:09 pm Vital Signs Most recent to oldest [Reference Range]: 1 2 3 Height 155 cm (10/07/23 11:04 AM) 155 cm (10/06/23 3:42 PM) Weight 61 kg (10/06/23 3:42 PM) Oxygen Saturation [94-100 %] 100 % (10/08/23 8:00 AM) 99 % (10/08/23 4:18 AM) 99 % (10/08/23 12:20 AM) Pulse Rate [55-90 bpm] 83 bpm (10/08/23 8:00 AM) 90 bpm (10/08/23 4:18 AM) 103 bpm *H* (10/08/23 12:20 AM) Body Mass Index [18.5-24.99 kg/m2] 25.39 kg/m2 *H* (10/06/23 3:42 PM) Blood Pressure [90-138/55-84 mm Hg] 127/88mm Hg (10/08/23 8:00 AM) 129/91mm Hg (10/08/23 4:18 AM) 116/74mm Hg (10/08/23 12:20 AM) Respiratory Rate [16-30 br/min] 18 br/min (10/08/23 9:43 AM) 18 br/min (10/08/23 9:12 AM) 18 br/min (10/08/23 8:43 AM) Temperature [96.8-100.4 DegF] 97.3 DegF (10/08/23 8:00 AM) 97.7 DegF (10/08/23 4:18 AM) 98.2 DegF (10/08/23 12:20 AM) Mode of Delivery (Oxygen) Room air (10/08/23 8:00 AM) Room air (10/08/23 4:18 AM) Room air (10/08/23 12:20 AM) Blood pressure sites Arm, right (10/08/23 8:00 AM) Arm, right (10/08/23 4:18 AM) Arm, left (10/08/23 12:20 AM) Temperature Route Oral (10/08/23 8:00 AM) Oral (10/08/23 4:18 AM) Oral (10/08/23 12:20 AM) Dry Weight 61 kg (10/06/23 3:42 PM) Weight Obtained Via Bed scale (10/06/23 3:42 PM) Social History Social History Type Response Smoking Status 5-9 cigarettes (betw een 1/4 to 1/2 pack)/day in last 30 days; Interested in cessation: No entered on: 08/10/22 Sex Female Admission evaluation note * Braden CRANE, [place]: PERFORM, MODIFY, MODIFY, MODIFY Event Display: Admission Note Authored Date: [id number] Patient: ??LASHANDA RICHTER ? Age:??43 Years?Sex:??Female?:??1980?? Chief Complaint/Reason for Consultation Requesting transport (refused transport to [place] and requested [facility]) pt complains of dizziness/ nearfainting. Pt is not manic but believes dizziness is from ???metal that attaches to me.?? Pt statesshe has been medication compliant but has been hallucinatin History of Present Illness 43-year-old female k/c of EtOH use disorder/alcohol dependence, depression, anxiety, PTSD,??active cocaine use who presenting with dizziness. ?? Pt is active cocaine used, smoke it in regular bases. She??reporting??dizziness which started week ago and getting worse. She described??as??no spinning,??more as??lightheadedness and and stiffness??feels herself that might??move??but does not see anything moving around her. ??Also reporting feeling electricity in her body??and hair has electricity. ??Also reported metallic taste.?? Her lightheadedness symptoms??related to standing most of the time.??She reported head trauma??that was mild??but week ago.?? She denying any??focal numbness or weakness,??no visual or speech changes. No??sore throat, ear pain, runny nose. ??Hemodynamically stable.?? Blood workup leukocytosis 12 with neutrophilia, troponin 6, proBNP 171, TSH 2.2, negative test, cocaine and cannabinoid positive.?? CT head, CT angio head and neck without acute finding.?? Chest x-ray without acute finding. At bedside pt is comfortable. Reporting significant improvement after lorazepam. No lightheadedness at time of exam. Normal full neuro exam ?? Review of Systems All review of systems negative except above Objective Vital Signs?? Temperature: 98.6 DegF (10/06/23 12:14:00) Temperature Route: Oral (10/06/23 12:14:00) Pulse Rate:??93 bpm??High (10/06/23 12:14:00) Respiratory Rate: 16 br/min (10/06/23 12:14:00) Systolic Blood Pressure: 131 mm Hg (10/06/23 12:14:00) Diastolic Blood Pressure: 74 mm Hg (10/06/23 12:14:00) Pulse Pressure: 57 mm Hg (10/06/23 12:14:00) Oxygen Saturation: 98 % (10/06/23 12:14:00) Mode of Delivery (Oxygen): Room air (10/06/23 12:14:00) Early Warning Score: 0 (10/06/23 12:15:46) ? Intake/Output? No Data Available ? Physical Exam General?NAD, AAO HEENT?PERRLA, oropharynx clear, moist mucus membranes Pulm?CTA bilaterally, no wheezes/rhonchi/rales CV?RRR, +S1/S2, no murmurs/rubs GI?Soft, nontender, nondistended, no organomegaly, bowel sounds are present Neuro?Moves all extremities MS?no obvious deformity Psych?Mood appropriate to situation?? Assessment/Plan 43-year-old female k/c of EtOH use disorder/alcohol dependence, depression, anxiety, PTSD,??active cocaine use who presenting with dizziness. ?? Lightheadedness (R42) Patient reporting??dizziness which she described??as??no spinning,??more as??lightheadedness and and stiffness??feels herself that might??move??but does not see anything moving around her. ??Also reporting feeling electricity in her body??and hair has electricity. ??Also reported metallic taste.?? Her lightheadedness symptoms??related to standing.?? She reported head trauma??that was mild??but week ago.?? She denying any??focal numbness or weakness,??no visual or speech changes.?? Patient has normal neuroexam CT head, CT angio head and neck without acute finding.? -Orthostatic measurement -PT eval -Consider MRI - at this point will try hydration- treat anxiety and reassess- no red flags.?? Her symptoms improved with lorazepam ?? Active cocaine use (F14.90) Active tobacco use (R42) Tested positive for cocaine and cannabinoid ?? -Counseling about??drug use -Nicotine patch ?? Leukocytosis (D72.829): No signs or symptoms of infection ?? Depression (F32.A) PTSD (F43.10) Anxiety ??(F41.9) -Continue home olanzapine, Seroquel 300 -Increasing home??clonazepam??to twice daily from once daily ?? Full code Lovenox Regular diet Histories Allergies Allergies ?(Active and Proposed Allergies Only) Mold? (Severity: Mild, Onset: Unknown) ?Reactions: HEADACHE, BREATHING ISSUES ? Past Medical History/Problem List Active Problems??(27) Anxiety Benzodiazepine abuse Bipolar affective Cervix, short (affecting ) Constipation Contraception management Current tobacco use Depression Dermatitis Drug abuse during Dysphagia Encounter to establish care Frequent headaches GBS carrier GERD (gastroesophageal reflux disease) H/O delivery, currently History of opioid abuse Homeless Hx of trauma in childhood Low grade KHAI Marijuana smoker MDD (major depressive disorder), recurrent severe, without psychosis PTSD (post-traumatic stress disorder) Screening for breast cancer Severe obesity Sinus pain Subclinical hypothyroidism ? Past Surgical History Open treatment of acute or chronic elbow dislocation: 02/03/23 Endoscopic esophageal dilator: 2016 Dilation and curettage: 2009 Carpal tunnel: 1996 [place] Teeth extraction ? Social History Alcohol Details:??Use: not currently. Details:??Use: Pt denies. Employment/School Details:??Status: Disabled. Exercise Details:??Regular exercise: Yes. ??Exercise type: Walking. Home/Environment Details:??Living situation: Home/Independent. ??Lives with: Spouse. Nutrition/Health Details:??Diet: Regular. Sexual Details:??Sexually involved in last 6 months: Yes. ??Gender of partner(s): Male. Substance Abuse Details:??Use: Current. ??Type: Cocaine, Marijuana. Tobacco Details:??Use: 5-9 cigarettes (between 1/4 to 1/2 pack)/day in last 30 days. ??Interested in cessation: No. Electronic Cigarette/Vaping Details:??Electronic Cigarette Use: Never. ? Family History Mother: Anxiety ? 11-JUL-2016 02:49:49<$>; Depression; Drugused; Hyperlipidemia; Skin cancer; ms Father: Drug used ? Medications Home Medications Clonazepam (KlonoPIN 1 mg oral tablet)?1?tab(s)?1?Milligram?By Mouth?3 times a day Loratadine (loratadine 10 mg oral tablet)?10?Milligram?1?tablet?By Mouth?Daily?for 7?Days Quetiapine (Seroquel)?300?Milligram?By Mouth?Daily at bedtime ? Results Abnormal Labs ?? BLOOD COUNT & DIFF ??Abs. Imm Gran ??0.1 k/mm3 () ??10/05/2023 20:22 ??Abs. NRBC ??0.0 k/mm3 () ??10/05/2023 20:22 ??Abs. Neut ??8.3 k/mm3 (High) ??10/05/2023 20:22 ??Imm Gran ??0.4 % () ??10/05/2023 20:22 ??Nucleated RBC (Automated) ??0.0 #/100 WBC'S () ??10/05/2023 20:22 ??RDW-SD ??37.2 femtoliters () ??10/05/2023 20:22 ??WBC ??12.2 k/mm3 (High) ??10/05/2023 20:22 ? CARDIAC ??High Sensitivity Troponin (HSTnT) ??6 ng/L () ??10/05/2023 20:22 ??Nt-Probnp ??171 pg/mL (High) ??10/05/2023 20:22 ? CHEM GENERAL ??AG Ratio ??2.8 () ??10/05/2023 20:22 ??Albumin ??5.1 Gm/dL (High) ??10/05/2023 20:22 ??Estimated GFR Creatinine ??111 ML/MIN/1.73 M2 () ??10/05/2023 20:22 ??Glucose Level ??128 mg/dL (High) ??10/05/2023 20:22 ? ENDOCRINE/TUMOR MARKER ??Blood ??<1 mIU/mL () ??10/05/2023 20:22 ? HEME OTHER ??Hold Blue Top ??SPECIMEN DISCARDED AFTER 4 HOURS. () ??10/05/2023 20:22 ? TOXICOLOGY/TDM ??Amphetamine Screen, Urine ??NONE DETECTED () ??10/05/2023 19:25 ??Barbiturate Screen, Urine ??NONE DETECTED () ??10/05/2023 19:25 ??Benzodiazepine Screen, Urine ??NONE DETECTED () ??10/05/2023 19:25 ??Cannabinoid Screen, Urine ??POSITIVE (Abnormal) ??10/05/2023 19:25 ??Cocaine Metabolite Screen, Urine ??POSITIVE (Abnormal) ??10/05/2023 19:25 ??Opiate Screen, Urine ??NONE DETECTED () ??10/05/2023 19:25 ? UA/URINALYSIS ??Albumin, Urine ??1+ (Abnormal) ??10/05/2023 19:25 ??Appear/Color, Urine ??YELLOW () ??10/05/2023 19:25 ??Bacteria ??SLIGHT HPF (Abnormal) ??10/05/2023 19:25 ??Bilirubin, Urine ??NEGATIVE () ??10/05/2023 19:25 ??Clarity ??CLEAR () ??10/05/2023 19:25 ??Culture Indication ??CULTURE NOT INDICATED () ??10/05/2023 19:25 ??Glucose, Urine ??NEGATIVE () ??10/05/2023 19:25 ??Hemoglobin, Urine ??NEGATIVE () ??10/05/2023 19:25 ??Ketones, Urine ??3+ (Abnormal) ??10/05/2023 19:25 ??Leukocyte, Urine ??NEGATIVE () ??10/05/2023 19:25 ??Mucus ??SLIGHT /LPF () ??10/05/2023 19:25 ??Nitrite, Urine ??NEGATIVE () ??10/05/2023 19:25 ??Urobilinogen ??2 mg/dL (Abnormal) ??10/05/2023 19:25 ? VIROLOGY ??COVID-19 PCR Specimen Source ??NASAL () ??10/05/2023 20:20 ??COVID-19 PCR Result ??NEGATIVE () ??10/05/2023 20:20 ??Influenza A PCR ??NEGATIVE () ??10/05/2023 20:20 ??Influenza B PCR ??NEGATIVE () ??10/05/2023 20:20 ??RSV PCR ??NEGATIVE () ??10/05/2023 20:20 ? Note: Critical results are displayed in red. ? Cardiology Labs Nt-Probnp:??171 pg/mL??High (10/05/23 20:22:00) High Sensitivity Troponin (HSTnT): 6 ng/L (10/05/23 20:22:00) ? EKG study * Event Display: ECG 12-Lead Authored Date: Please click on pdf link to open report * Event Display: ECG 12-Lead Authored Date: Ventricular Rate: 89 BPM Atrial Rate: 89 BPM P-R Interval: 128 ms QRS Duration: 86 ms Q-T Interval: 398 ms QTC Calculation(Bazett): 484 ms P [place]: 69 degrees R [place]: 74 degrees T [place]: 63 degrees Normal sinus rhythm Normal ECG When compared with ECG of 18-JAN-2023 14:54, Arm leads are now correctly placed Confirmed by RAMO SANTANA ([id number]) on 10/06/2023 8:30:13 AM [place]: RAMO SANTANA Hospital Progress note * Brandi Lock RN: PERFORM, SIGN, VERIFY Event Display: Progress Note Hospital Authored Date: Patient: LASHANDA RICHTER Age: 43 years Sex: Female : 1980 Associated Diagnoses: None Author: Brandi Lock RN Findings Problem Related to Alteration in Neurological : Alteration in Neurological Function/new 10/08/2023 10:00 EST Alteration in Neuro status Related to Acute Stroke (CVA) Goals & Outcomes, Neurological Pt will be discharged without infection, Pt will be Neurologically stable, Pt will remain free from injury, Resolved problem, Goals/Outcomes met Interventions, Neurological Assess/monitor for abnormal posturing, Assess/monitor for gaze pattern/extraocular movements, Collaborate with Nutrition, Collaborate with provider re: medication regime, Emergency airway equipment at bedside, Keep patient's head & body in good alignment, Resolved pro blem, Interventions no longer in effect, Elevate HOB & keep head midline in sniffing position Goals/Interventions, Neurological Yes Neurological, Problem Start 10/06/2023 18:17 Reviewed plan with, Neurological Patient Patient Progression, Neurological Resolved problem Neurological, Problem Resolved 10/08/2023 10:32 . Nursing Data Vital Signs : VITAL SIGNS SECTION 10/08/2023 8:00 EST Temperature 97.3 DegF Temperature Route Oral Pulse Rate 83 bpm Systolic Blood Pressure 127 mm Hg Diastolic Blood Pressure 88 mm Hg H Blood pressure sites Arm, right Pulse Pressure 39 mm Hg Oxygen Saturation 100 % Mode of Delivery (Oxygen) Room air . Narrative/Incidental Pt ambulates independently. A&Ox4, calm and cooperative. Pt c/o 05/06 headache, oxycodone administered as ordered w/ positive effects. LS CTA, remains on RA. No edema present, +PP. Cardiac monitorNSR. Pt is continent of both urine and stool. +BSx4, abd soft/nontender and last BM 10/06. Pt is tolerating regular diet and oral fluid intake. Skin C/D/I. R FA IV patent. IV D/Cd and pt ready for dis charge. . Discharge Information Rehabilitation Discharge : Rehab Discharge Index 10/07/2023 16:43 EST Full chart review completed Not Done: Order Discontinued (Not Done) * Anabelle Copeland RN: PERFORM, SIGN, VERIFY Event Display: Progress Note Hospital Authored Date: [id number] Patient: LASHANDA RICHTER Age: 43 years Sex: Female : 1980 Associated Diagnoses: None Author: Anabelle Copeland RN Findings Problem Related to Alteration in Neurological : Alteration in Neurological Function/new 10/07/2023 20:00 EST Alteration in Neuro status Related to Acute Stroke (CVA) Goals & Outcomes, Neurological Pt will be discharged without infection, Pt will be Neurologically stable, Pt will remain free from injury Interventions, Neurological Assess/monitor neurologic status, Assess/monitor VS per unit standards & prn Goals/Interventions, Neurological Yes Neurological, Problem Start 10/06/2023 18:17 Reviewed plan with, Neurological Patient Patient Progression, Neurological Pt progressing according to plan . Evaluation patient HAD MRI states medication received earlier for headache was successful in relieving pain denies nausea . * Ana CRANE, Dustin Oliva: PERFORM Event Display: Progress Note Hospital Authored Date: [id number] Patient: ??LASHANDA RICHTER ? Age:??43 Years?Sex:??Female?:??1980?? Subjective complains of dizziness, tinnitus, right sided headache no nausea, vomiting ambulating independently ?? Review of Systems as noted above ?? Allergies Allergies ?(Active and Proposed Allergies Only) Mold? (Severity: Mild, Onset: Unknown) ?Reactions: HEADACHE, BREATHING ISSUES ? Objective Measurements?? Height: 155 cm (10/07/23) Weight: 61 kg (10/06/23) Dry Weight: 61 kg (10/06/23) Body Mass Index:??25.39 kg/m2??High (10/06/23) ? Vital Signs?? Temperature: 98.4 DegF (10/07/23 15:00:00) Temperature Route: Oral (10/07/23 15:00:00) Pulse Rate:??96 bpm??High (10/07/23 15:00:00) Pulse Rate, Lyin bpm (10/07/23 11:04:00) Systolic Blood Pressure, Lyin mm Hg (10/07/23 11:04:00) Diastolic Blood Pressure, Lyin mm Hg (10/07/23 11:04:00) Pulse Rate, Sittin bpm (10/07/23 11:04:00) Systolic Blood Pressure, Sittin mm Hg (10/07/23 11:04:00) Diastolic Blood Pressure, Sittin mm Hg (10/07/23 11:04:00) Pulse Rate, Standin bpm (10/07/23 11:04:00) Systolic Blood Pressure, Standin mm Hg (10/07/23 11:04:00) Diastolic Blood Pressure, Standin mm Hg (10/07/23 11:04:00) Respiratory Rate: 18 br/min (10/07/23 15:00:00) Systolic Blood Pressure: 121 mm Hg (10/07/23 15:00:00) Diastolic Blood Pressure: 77 mm Hg (10/07/23 15:00:00) Blood pressure sites: Arm, right (10/07/23 15:00:00) Pulse Pressure: 36 mm Hg (10/07/23 07:00:00) Oxygen Saturation: 98 % (10/07/23 15:00:00) Mode of Delivery (Oxygen): Room air (10/07/23 15:00:00) Early Warning Score: 0 (10/07/23 15:28:24) ? Intake/Output? 10/06 05:56 10/07 07:00 10/06 07:00 10/05 07:00 10/04 07:00 ?? 10/07 17:35 10/07 17:35 10/07 06:59 10/06 06:59 10/05 06:59 Intake ? 1280 ?840 ?440 ?0 ?0 Output ?0 ?0 ?0 ?0 ?0 Net Total ? 1280 ?840 ?440 ?0 ?0 ? Urine Count ?5 ?1 ?4 ?0 ?0 ? Physical Exam Constitutional: Alert, in no acute distress. Mental Status: Oriented to person, place and time. Head: Normocephalic. Respiratory: Clear to auscultation Cardiovascular: Regular rate and rythm. Gastrointestinal: Abdomen soft, non-tender, non-distended. Normal bowel sounds.?? Neurologic: No focal neurological deficits Moves all extremities spontaneously. nystagmus present Musculoskeletal: No Leg edema?? _ Inpatient Medications Medications (19) Active SCHEDULED: (8) Clonazepam 1 mg Tablet (KlonoPIN 1 mg oral tablet) ??1 mg, By Mouth, 2 times a day Enoxaparin 40 mg Inj (Enoxaparin Inj) ??40 mg 0.4 mL, Subcutaneous Injection, Daily Meclizine 12.5 mg Tablet (meclizine 12.5 mg oral tablet) ??12.5 mg, By Mouth, 3 times a day NaCl 0.9% Flush 3ml (NaCL 0.9% Flush) ??3 mL, IV Push, Every 8 hours Nicotine 21 mg / 24 hour Patch (Nicotine Topical) ??21 mg, Topically, Daily Olanzapine 2.5 mg Tablet (olanzapine 2.5 mg oral tablet) ??2.5 mg, By Mouth, Daily Quetiapine 100 mg Tablet (SEROquel 200 mg oral tablet) ??300 mg, By Mouth, Daily at bedtime Remove Patch (Remove ??Patch) ??1 each, Topically, Daily CONTINUOUS: (1) Lactated Ringers (1000 mL) Cont IV 1,000 mL (LR 1,000 mL) ??1,000 mL, IV Infusion, 100 mL/hr PRN: (10) Acetaminophen 325 mg Tablet (Acetaminophen Tablet) ??650 mg, By Mouth, Every 4 hours Acetaminophen/Butalbital/Caffeine Tablet (Fioricet Tablet) ??1 tablet, By Mouth, Every 4 hours Dextromethorphan-Guaifenesin 20 mg-200 mg/10 mL Liqu UD (Robitussin DM Liquid) ??10 mL, By Mouth, Every 4 hours Docusate Sodium 100 mg Capsule (Docusate Sodium Capsule) ??100 mg 1 capsule, By Mouth, 2 times a day Ketorolac 30 mg/mL Inj (Toradol Inj) ??15 mg 0.5 mL, IV Push Slowly, Every 6 hours Melatonin 3 mg Tablet (Melatonin Tablet) ??3 mg, By Mouth, Daily at bedtime NaCl 0.9% Flush 3ml (NaCL 0.9% Flush) ??3 mL, IV Push, Every 8 hours Polyethylene Glycol 17 Gm Powder (MiraLax Powder) ??17 Gm 1 pack/packet, By Mouth, Daily Senna Tablet ??8.6 mg 1 tablet, By Mouth, 2 times a day Simethicone 80 mg Chewable Tablet (Simethicone Tablet) ??80 mg, Chew, 3 times a day ? Results reviewed ?? Assessment/Plan Chief Complaint: Requesting transport (refused transport to [place] and requested [facility]) pt complains of dizziness/ near fainting. Pt is not manic but believes dizziness is from ???metal that attaches tome.?? Pt states she has been medication compliant but has been hallucinatin ?? 49 year-old female, presenting for evaluation of dizziness for 1 week She reports associated, prominently on the right side along with bilateral tinnitus. She reports that movements make the dizziness worse, she reports that she feels herself spinning and has intermittent feeling of electricity. Urine drug screen positive for cocaine, cannabinoid.?? She does admit to using cocaine intermittently, last used Wednesday of this week, but reports that she has been doing cocaine for a long time and usually does not have any associated problems with it.?? Also reports that she does medical marijuana. CT head, CT angiogram of head and neck without acute findings. On exam, noted to have nystagmus and MRI ordered for further evaluation. ?? Acute vertigo, headache. Has bilateral tinnitus, associated headache, nystagmus on exam. She is able to ambulate independently. Associated headache noted, tried Fioricet which was ineffective and she reports continued pain.?? Added Toradol as needed MRI for further assessment of vertigo As noted above, CT head, CT angiogram of head and neck without acute findings. If neurological etiology ruled out, can trial outpatient follow-up for vestibular evaluation and follow-up for possible BPPV ?? History of cocaine use, tobacco use On nicotine patch ?? Mild leukocytosis, possible leukemoid reaction No clear signs of active infection, monitor closely for any fevers or signs of sepsis ?? History of depression, PTSD, anxiety She reports that she was previously on a higher dose of benzodiazepines up to Xanax 2 mg 3 times daily, currently on Klonopin, but reports that this dosage has been ineffective.?? Has a psychiatrist outpatient. Continue home regimen. ?? OMN: Continue monitoring symptoms, supportive treatment, pending MRI ?? dvt ppx: sq lovenox ?? Note * Mari Galicia RN: PERFORM Event Display: Discharge/Transfer Note Hospital Authored Date: [id number] Nursing Discharge Note Entered On: 10/08/2023 11:41 EST Performed On: 10/08/2023 11:40 EST by Mari Galicia RN Nursing Discharge Note 2 Discharge Time : 10/08/2023 11:40 EST Discharge Level of Care at Discharge : Home/Custodial/Foster Care Patient Left Unit Via : Wheelchair Patient Accompanied Off Unit with : Responsible adult DC Instructions Provided & Signed by Pt : Yes Patient Understands D/C Instructions : Yes Patient Instructions Discharge Signed : Yes Did Pt have Specialty Bed or Wound Vac : No Mari Galicia RN - 10/08/2023 11:40 EST * Susna Foote MD: PERFORM, MODIFY Event Display: Discharge/Transfer Note Hospital Authored Date: [id number] Patient: ??LASHANDA RICHTER ? Age:??43 Years?Sex:??Female?:??1980?? Patient Information Discharge Location: A Primary Care Physician: Not on Staff, PCP Admit Date/Time: 10/06/23 05:56 Discharge Disposition Discharge Disposition: Home: No Services Discharge Diagnosis Anxiety (F41.9) Cocaine use (F14.90) Depressed state (F32.A) Dizziness (R42) Gait instability (R26.81) Leukocytosis (D72.829) PTSD (post-traumatic stress disorder) (F43.10) Tobacco use (Z72.0) ?? _ Discharge Medications Clonazepam (KlonoPIN 1 mg oral tablet)?1?tab(s)?1?Milligram?By Mouth?Daily Loratadine (loratadine 10 mg oral tablet)?10?Milligram?1?tablet?By Mouth?Daily?for 7?Days Meclizine (meclizine 25 mg oral tablet)?1?tab(s)?25?Milligram?By Mouth?Daily?as needed?Other?for 30?Days?For dizziness Olanzapine (olanzapine 2.5 mg oral tablet)?2.5?Milligram?1?tablet?TAKE 1 TABLET BY MOUTH TWICE A DAY NEEDED Quetiapine (Seroquel)?300?Milligram?By Mouth?Daily at bedtime ? Medications Started Meclizine Medications Discontinued None Doses Changed None PCP Follow-Up/Heads-Up 1. ??Patient presenting with??dizziness. ??Had??neurological workup including MRI of the brain thatwas unremarkable.?? Suspect this is most likely related to vertigo.?? Patient was sent home with prescription for meclizine??for dizziness.?? Could consider??establishing patient with??rehab outpatient for continued management. 2. ??Prescription sent for Klonopin 1 mg daily as needed for anxiety. ??Reviewed patient??has this prescribed by psychiatrist last filled on 08/09??for 30??days.?? Sent patient prescription for 14 days. Hospital Course This is a 43-year-old female with a history of EtOH use disorder/alcohol dependence, depression, anxiety, PTSD, active cocaine use who presenting with dizziness. ?? In the ED, patient hemodynamically stable. Blood workup leukocytosis 12 with neutrophilia, troponin6, proBNP 171, TSH 2.2, negative test, cocaine and cannabinoid positive. CT head, CT angio head and neck without acute finding. ?? Since being on the floor, for further evaluation patient had MRI of the brain: ?? 1. No acute infarct. 2. No discrete lesion is noted within the internal auditory canals or cerebellopontine angle cisterns on the noncontrast thin section axial T2- weighted images through the internal auditory canals. 3. Scattered small FLAIR bright foci within the supratentorial white matter are similar. These are nonspecific, but may represent the sequela of an inflammatory process. ?? Suspect that patient's symptoms are most likely related to vertigo??given dizziness tends to be exacerbated by movement. ??Patient was started on meclizine in the hospital and discharged with instructions to continue meclizine 25 mg as needed for dizziness ?? Dizziness Headache s/p CT head, CT angiogram of head and neck without acute findings. Urine drug screen positive for cocaine, cannabinoid. Currently, actively using both marijuana and cocaine. Further work-up included MRI brain, see above for results. ?? Recommendations: - Continue Tylenol/Motrin for headaches -Can continue to take??meclizine 25 mg as needed for dizziness -Please follow-up with your primary care provider to discuss??further management with??possible rehab??for vertigo ?? History of cocaine use, tobacco use Recommendations: -Continue to work counselor on cocaine use and tb use disorder -Prior to discharge,??did work counselor patient on risk of using cocaine including??risk of heart attacksand??strokes.?? Patient reports that she does use fentanyl test strips that she gets from [employer].??Continue to encourage patient to do that if she??plans to use cocaine??given high risk of contamin ation with fentanyl ?? History of depression, PTSD, anxiety ?? Recommendations: - continue Seroqual 300 mg PM (home med) - Continue olanzapine 2.5 mg BID (home med) - Continue Klonopin 1 mg daily (home med), prescribed patient: 14 days worth (see above for more information).?? Will need to follow-up with psychiatrist in the future for further prescription refills. ? Objective Assessment and Plan ? Vital Signs?? Temperature: 97.3 DegF (10/08/23 08:00:00) Temperature Route: Oral (10/08/23 08:00:00) Pulse Rate: 83 bpm (10/08/23 08:00:00) Pulse Rate, Lyin bpm (10/07/23 11:04:00) Systolic Blood Pressure, Lyin mm Hg (10/07/23 11:04:00) Diastolic Blood Pressure, Lyin mm Hg (10/07/23 11:04:00) Pulse Rate, Sittin bpm (10/07/23 11:04:00) Systolic Blood Pressure, Sittin mm Hg (10/07/23 11:04:00) Diastolic Blood Pressure, Sittin mm Hg (10/07/23 11:04:00) Pulse Rate, Standin bpm (10/07/23 11:04:00) Systolic Blood Pressure, Stand[place] mm Hg (10/07/23 11:04:00) Diastolic Blood Pressure, Standin mm Hg (10/07/23 11:04:00) Respiratory Rate: 18 br/min (10/08/23 09:43:00) Systolic Blood Pressure: 127 mm Hg (10/08/23 08:00:00) Diastolic Blood Pressure:??88 mm Hg??High (10/08/23 08:00:00) Blood pressure sites: Arm, right (10/08/23 08:00:00) Mean Arterial Pressure: 104 mm Hg (10/08/23 04:18:00) Pulse Pressure: 39 mm Hg (10/08/23 08:00:00) Oxygen Saturation: 100 % (10/08/23 08:00:00) Mode of Delivery (Oxygen): Room air (10/08/23 08:00:00) Early Warning Score: 5 (10/08/23 10:18:57) ? . Physical Exam General:??No acute distress HEENT:??Moist mucus membranes Respiratory:??Clear to auscultation bilaterally, no increased work of breathing Cardiovascular:??Normal rate, regular rhythm, no murmurs Abdomen:??Normal active bowel sounds, soft, non-tender Musculoskeletal:??No LE edema, moving all extremities normally Neurologic:??Alert & Oriented, CN II-XII intact, 5 out of 5 strength in both upper and lower extremities bilaterally, sensation intact to light touch??throughout, pronator drift??negative Skin:??Warm and dry, No rashes or lesions ?? Consultants None Pending Results Add On Lab Order ordered on 10/06/2023 Hold Lavender Tube (BB) ordered on 10/05/2023 Patient Education Titles Meclizine Oral Tablet?? Benign Paroxysmal Positional Vertigo?? Follow-Up Appointments Added Follow Up ?Time Frame ?Comments Reese CRANE, Susan Thornton?1-2 day: call to discuss follow up visit Patient Instructions TO DO: - continue Seroquel 300 mg PM?? - Continue olanzapine 2.5 mg BID?? - Continue Klonopin 1 mg daily (sent prescription for a total of 14 days) - Please follow-up with your primary care provider within 1 week of discharge from the hospital - Continue to use Tylenol and Motrin as needed for??headaches Results Discharge Labs BLOOD COUNT & DIFF WBC 5.8 k/mm3 ()?? 10/08/2023 01:31 RBC 4.35 m/mm3 ()?? 10/08/2023 01:31 Hgb 12.6 Gm/dL ()?? 10/08/2023 01:31 Hct 37.4 % ()?? 10/08/2023 01:31 MCV 86.0 femtoliters ()?? 10/08/2023 01:31 MCH 29.0 pg ()?? 10/08/2023 01:31 MCHC 33.7 g/dL ()?? 10/08/2023 01:31 Platelet Count 126 k/mm3 (Low)?? 10/08/2023 01:31 RDW-SD 38.8 femtoliters ()?? 10/08/2023 01:31 MPV 11.6 femtoliters ()?? 10/08/2023 01:31 Nucleated RBC (Automated) 0.0 #/100 WBC'S ()?? 10/08/2023 01:31 Abs. NRBC 0.0 k/mm3 ()?? 10/08/2023 01:31 Abs. Neut 3.8 k/mm3 ()?? 10/08/2023 01:31 Abs. Lymph 1.3 k/mm3 ()?? 10/08/2023 01:31 Abs. [place] 0.5 k/mm3 ()?? 10/08/2023 01:31 Abs. Eo 0.2 k/mm3 ()?? 10/08/2023 01:31 Abs. Baso 0.0 k/mm3 ()?? 10/08/2023 01:31 Neut % 65.1 % ()?? 10/08/2023 01:31 Lymph % 22.9 % ()?? 10/08/2023 01:31 [place] % 8.1 % ()?? 10/08/2023 01:31 Eos % 3.1 % ()?? 10/08/2023 01:31 Baso % 0.5 % ()?? 10/08/2023 01:31 Imm Gran 0.3 % ()?? 10/08/2023 01:31 Abs. Imm Gran 0.0 k/mm3 ()?? 10/08/2023 01:31 ?? CARDIAC Nt-Probnp 171 pg/mL (High)?? 10/05/2023 20:22 High Sensitivity Troponin (HSTnT) 6 ng/L ()?? 10/05/2023 20:22 ?? CHEM GENERAL Sodium 141 mmol/L ()?? 10/05/2023 20:22 Potassium 3.6 mmol/L ()?? 10/05/2023 20:22 Chloride 103 mmol/L ()?? 10/05/2023 20:22 Bicarbonate Level 27 mmol/L ()?? 10/05/2023 20:22 Anion Gap 11 ()?? 10/05/2023 20:22 Glucose Level 128 mg/dL (High)?? 10/05/2023 20:22 BUN 11 mg/dL ()?? 10/05/2023 20:22 Creatinine-Blood 0.7 mg/dL ()?? 10/05/2023 20:22 Estimated GFR Creatinine 111 ML/MIN/1.73 M2 ()?? 10/05/2023 20:22 Calcium 9.7 mg/dL ()?? 10/05/2023 20:22 Phosphorus 2.9 mg/dL ()?? 10/05/2023 20:22 Magnesium 1.9 mg/dL ()?? 10/05/2023 20:22 Protein, Total 6.9 Gm/dL ()?? 10/05/2023 20:22 Albumin 5.1 Gm/dL (High)?? 10/05/2023 20:22 AG Ratio 2.8 ()?? 10/05/2023 20:22 Alkaline Phosphatase 68 units/L ()?? 10/05/2023 20:22 AST (SGOT) 16 units/L ()?? 10/05/2023 20:22 ALT (SGPT) 9 units/L ()?? 10/05/2023 20:22 Bilirubin, Total 0.6 mg/dL ()?? 10/05/2023 20:22 Folic Acid Level 25.5 ng/mL ()?? 10/05/2023 20:22 Lactate 1.2 mmol/L ()?? 10/05/2023 20:22 ? ENDOCRINE/TUMOR MARKER TSH 2.20 uIU/mL ()?? 10/05/2023 20:22 Blood <1 mIU/mL ()?? 10/05/2023 20:22 ?? HEME OTHER Hold Blue Top SPECIMEN DISCARDED AFTER 4 HOURS. ()?? 10/05/2023 20:22 ? TOXICOLOGY/TDM Barbiturate Screen, Urine NONE DETECTED ()?? 10/05/2023 19:25 Cannabinoid Screen, Urine POSITIVE (Abnormal)?? 10/05/2023 19:25 Cocaine Metabolite Screen, Urine POSITIVE (Abnormal)?? 10/05/2023 19:25 Benzodiazepine Screen, Urine NONE DETECTED ()?? 10/05/2023 19:25 Amphetamine Screen, Urine NONE DETECTED ()?? 10/05/2023 19:25 Opiate Screen, Urine NONE DETECTED ()?? 10/05/2023 19:25 ?? UA/URINALYSIS Appear/Color, Urine YELLOW ()?? 10/05/2023 19:25 Clarity CLEAR ()?? 10/05/2023 19:25 Specific [place], Urine 1.029 ()?? 10/05/2023 19:25 pH, Urine 6.0 ()?? 10/05/2023 19:25 Albumin, Urine 1+ (Abnormal)?? 10/05/2023 19:25 Glucose, Urine NEGATIVE ()?? 10/05/2023 19:25 Ketones, Urine 3+ (Abnormal)?? 10/05/2023 19:25 Bilirubin, Urine NEGATIVE ()?? 10/05/2023 19:25 Hemoglobin, Urine NEGATIVE ()?? 10/05/2023 19:25 Nitrite, Urine NEGATIVE ()?? 10/05/2023 19:25 Leukocyte, Urine NEGATIVE ()?? 10/05/2023 19:25 Urobilinogen 2 mg/dL (Abnormal)?? 10/05/2023 19:25 WBC's, Urine 1 /HPF ()?? 10/05/2023 19:25 RBC's, Urine 1 /HPF ()?? 10/05/2023 19:25 Bacteria SLIGHT HPF (Abnormal)?? 10/05/2023 19:25 Squamous Epith 6 /HPF ()?? 10/05/2023 19:25 Mucus SLIGHT /LPF ()?? 10/05/2023 19:25 Culture Indication CULTURE NOT INDICATED ()?? 10/05/2023 19:25 ?? URINE OTHER Est Creatinine Clearance 79.09 mL/min ()?? 10/06/2023 15:57 ? VIROLOGY Influenza A PCR NEGATIVE ()?? 10/05/2023 20:20 Influenza B PCR NEGATIVE ()?? 10/05/2023 20:20 RSV PCR NEGATIVE ()?? 10/05/2023 20:20 COVID-19 PCR Specimen Source NASAL ()?? 10/05/2023 20:20 COVID-19 PCR Result NEGATIVE ()?? 10/05/2023 20:20 ? Imaging(s) ?CT Head/Brain W/O Contrast ?? 10/05/2023 23:53??by Angel CRANE, Ludamelvinleonel ?No acute intracranial abnormality. ?CT Angio Neck ?? 10/06/2023 03:27??by Pete Schmitt MD ? 1. No acute intracranial large vessel occlusion. 2. Minimal atherosclerotic changes of the left carotid bulb without stenosis. Otherwise, unremarkable CTA of the neck. ?? A preliminary report was issued to the emergency room by the [facility] service 10/06/2023 at 4:40 AM. ?CT Angio Head ?? 10/06/2023 03:27??by Pete Schmitt MD ? 1. No acute intracranial large vessel occlusion. 2. Minimal atherosclerotic changes of the left carotid bulb without stenosis. Otherwise, unremarkable CTA of the neck. ?? A preliminary report was issued to the emergency room by the [facility] service 10/06/2023 at 4:40 AM. ?MRI Brain W/O Contrast ?? 10/07/2023 22:22??by Schmitt MD, Pete ?1. No acute infarct. 2. No discrete lesion is noted within the internal auditory canals or cerebellopontine angle cisterns on the noncontrast thin section axial T2- weighted images through the internal auditory canals. 3. Scattered small FLAIR bright foci within the supratentorial white matter are similar. These are nonspecific, but may represent the sequela of an inflammatory process. ?? Patient seen and discussed with attending physician ?? Susan Foote MD #[id number] Med-Peds, PGY-2 ?? _ minutes spent on discharge * Mari Galicia RN: PERFORM Event Display: Patient Education/Instruction Authored Date: [id number] Inpatient Adult Discharge Instructions [address] [address] Name: LASHANDA RICHTER : 1980 Visit: 10/06/2023 05:56:00 Current Date: 10/08/2023 11:35 Account: [id number] Inpatient Adult Discharge Instructions We would like [...] and their families. Surveys are administered by [employer] ?? If further treatment with your primary care physician or another doctor is recommended, it is important for you to keep the appointment. Call your primary care physician or return to the Emergency Department immediately if your condition worsens, fails to improve, or new symptoms develop. If you need to find a doctor, you can call [employer] for a referral at [phone] or toll free at [phone] ([phone]) or log in to [email or web address].. ?? [facility], in keeping with [facility] guidance, no longer requires face masks for staff, patientsor visitors in most situations. Similiar to time spent indoors at other locations, there is the chance that you were exposed to repiratory viruses during your time with us (such as flu or COVID-19). If you develop symptoms concerning for a viral respiratory infection, please seek testing (and treatment if indicated) from your medical provider or home test kit. ?? You can view and manage your care through the patient portal or by using a health care ros of your choosing. [employer] is a website that allows you to securely view your medical information including your hospital discharge summary, office visit summaries, medications and follow-up visits. You can also request appointments, renew medications, and request access to your medical information using a health care ros of your choosing, or just ask a question. You can enroll at [email or web address] or register during your next office visit. You have been discharged from [facility], Patient Care Unit: S3. If you have any questions regarding these instructions after you leave, please call us and we will be happy to assist you. [facility] Your Care Team Attending Physician Huey CRANE, Douglas Wilde Discharging Providers Qamar CRANE, Susan Zambrano Reason for Admission Requesting transport (refused transport to [place] and requested [facility]) pt complains of dizziness/ nearfainting. Pt is not manic but believes dizziness is from ???metal that attaches to me.?? Pt statesshe has been medication compliant but has been hallucinatin Your Diagnosis Dizziness Gait instability Cocaine use Tobacco use Leukocytosis Depressed state PTSD (post-traumatic stress disorder) Anxiety Tests Performed Below is a partial list of the tests performed during your hospitalization. You may have had other tests and procedures not included in this list. Please discuss all test results with your provider. Amphetamine Urine Screen Barbiturate Urine Screen Benzodiazepine Urine Screen BNP Cannabinoid Urine Screen CBC w/ Differential Cocaine Urine Screen Comprehensive Metabolic Panel COVID-19, RSV, and Flu A/B, Rapid PCR Folate Level Hold Blue Top Tube Lactate Level Magnesium Level Opiate Screen Urine Phosphorus Level Serum Quantitative Troponin T, High Sensitivity TSH with T4 Reflex (Adults Only) Urinalysis Complete/Reflex Culture CT Angio Head CT Angio Neck CT Head/Brain W/O Contrast MRI Brain W/O Contrast XR Chest 2 Views Frontal and Lat Primary Care Provider Not on Staff, PCP Advance Directive Health Care Proxy on File Yes - Health Care Proxy Discharge Vitals Temperature: 97.3 DegF Height: 155 cm Pulse Rate: 83 bpm Weight: 61 kg Respiratory Rate: 18 br/min Body Mass Index:??25.39 kg/m2??High Systolic Blood Pressure: 127 mm Hg Body surface area: 1.62 Diastolic Blood Pressure:??88 mm Hg??High ?? Oxygen Saturation: 100 % ?? Studies Pending All tests and labs ordered during this hospital stay have been completed unless listed below. Please discuss all pending results with your provider listed above in these instructions. ?? Add On Lab Order Hold Lavender Tube (BB) What to do next Instructions From Your Doctor TO DO: - continue Seroquel 300 mg PM?? - Continue olanzapine 2.5 mg BID?? - Continue Klonopin 1 mg daily (sent prescription for a total of 14 days) - Please follow-up with your primary care provider within 1 week of discharge from the hospital - Continue to use Tylenol and Motrin as needed for??headaches Discharge Orders You Need to Schedule the Following Appointments Follow Up with??Reese CRANE, Susan [place] When:??Within 1-2 day: call to discuss follow up visit Discharge Medications LASHANDA RICHTER :1980 Visit Date:10/06/2023 Medications: Please continue your medications until treatment is completed or stopped by your provider. Medications not listed below should be discontinued. Discuss any questions related to medications with your provider. What How Much When Instructions Next Dose New Meclizine (meclizine 25 mg oral tablet) 1 tab(s) Oral Daily as needed for Other Duration: 30 Days For dizziness ?? Pickup at [place] [address] as needed Changed Clonazepam (KlonoPIN 1 mg oral tablet) 1 tab(s) Oral Daily Duration: 14 Days Pickup at [facility] 10/09 AM Unchanged Loratadine (loratadine 10 mg oral tablet) 1 tab(s) Oral Daily Duration: 7 Days 10/09 AM Unchanged Olanzapine (olanzapine 2.5 mg oral tablet) 1 tab(s) TAKE 1 TABLET BY MOUTH TWICE A DAY NEEDED ?? as needed Unchanged Quetiapine (Seroquel) 300 Milligram Oral Daily at Bedtime 10/08 Bedtime Pharmacy Information [facility]: [address], [place] [id number] [phone] Test Results Below is a partial list of the most recent Laboratory test results done prior to this discharge. You may have had other tests and procedures not included in this list. Please discuss all test resultswith your provider. Est Creatinine Clearance - 79.09 mL/min (10/06/2023) Amphetamine Urine Screen (10/05/2023) ???Amphetamine Screen, Urine - NONE DETECTED Barbiturate Urine Screen (10/05/2023) ???Barbiturate Screen, Urine - NONE DETECTED Benzodiazepine Urine Screen (10/05/2023) ???Benzodiazepine Screen, Urine - NONE DETECTED BNP (10/05/2023) ???Nt-Probnp - 171 pg/mL Cannabinoid Urine Screen (10/05/2023) ???Cannabinoid Screen, Urine - POSITIVE CBC w/ Differential (10/08/2023) ???WBC - 5.8 k/mm3???RBC - 4.35 m/mm3???Hgb - 12.6 Gm/dL???Hct - 37.4 %???MCV - 86.0 femtoliters???MCH - 29.0 pg???MCHC - 33.7 g/dL???Platelet Count - 126 k/mm3???RDW-SD - 38.8 femtoliters???MPV - 11.6 femtoliters???Nucleated RBC (Automated) - 0.0 #/100 WBC'S???Abs. NRBC - 0.0 k/mm3???Abs. Neut - 3.8 k/mm3???Abs. Lymph - 1.3 k/mm3???Abs. [place] - 0.5 k/mm3???Abs. Eo - 0.2 k/mm3???Abs. Baso - 0.0 k/mm3???Neut % - 65.1 %???Lymph % - 22.9 %???[place] % - 8.1 %???Eos % - 3.1 %???Baso % - 0.5 %???Imm Gran - 0.3 %???Abs. Imm Gran - 0.0 k/mm3 Cocaine Urine Screen (10/05/2023) ???Cocaine Metabolite Screen, Urine - POSITIVE Comprehensive Metabolic Panel (10/05/2023) ???Sodium - 141 mmol/L???Potassium - 3.6 mmol/L???Chloride - 103 mmol/L???Bicarbonate Level - 27 mmol/L???Anion Gap - 11???Glucose Level - 128 mg/dL???BUN - 11 mg/dL???Creatinine-Blood - 0.7 mg/dL???Estimated GFR Creatinine - 111 ML/MIN/1.73 M2???Calcium - 9.7 mg/dL???Protein, Total - 6.9 Gm/dL???Al bumin - 5.1 Gm/dL???AG Ratio - 2.8???Alkaline Phosphatase - 68 units/L???AST (SGOT) - 16 units/L???ALT (SGPT) - 9 units/L???Bilirubin, Total - 0.6 mg/dL COVID-19, RSV, and Flu A/B, Rapid PCR (10/05/2023) ???Influenza A PCR - NEGATIVE???Influenza B PCR - NEGATIVE???RSV PCR - NEGATIVE???COVID-19 PCR Specimen Source - NASAL???COVID-19 PCR Result - NEGATIVE Folate Level (10/05/2023) ???Folic Acid Level - 25.5 ng/mL Hold Blue Top Tube (10/05/2023) ???Hold Blue Top - SPECIMEN DISCARDED AFTER 4 HOURS. Lactate Level (10/05/2023) ???Lactate - 1.2 mmol/L Magnesium Level (10/05/2023) ???Magnesium - 1.9 mg/dL Opiate Screen Urine (10/05/2023) ???Opiate Screen, Urine - NONE DETECTED Phosphorus Level (10/05/2023) ???Phosphorus - 2.9 mg/dL Serum Quantitative (10/05/2023) ? ?Blood - <1 mIU/mL Troponin T, High Sensitivity (10/05/2023) ???High Sensitivity Troponin (HSTnT) - 6 ng/L TSH with T4 Reflex (Adults Only) (10/05/2023) ???TSH - 2.20 uIU/mL Urinalysis Complete/Reflex Culture (10/05/2023) ???Appear/Color, Urine - YELLOW???Clarity - CLEAR???Specific [place], Urine - 1.029???pH, Urine - 6.0???Albumin, Urine - 1+???Glucose, Urine - NEGATIVE???Ketones, Urine - 3+???Bilirubin, Urine - NEGATIVE???Hemoglobin, Urine - NEGATIVE???Nitrite, Urine - NEGATIVE???Leukocyte, Urine - NEGATIVE???Urobi linogen - 2 mg/dL???WBC's, Urine - 1 /HPF???RBC's, Urine - 1 /HPF???Bacteria - SLIGHT???Squamous Epith - 6 /HPF???Mucus - SLIGHT???Culture Indication - CULTURE NOT INDICATED Allergies (NKA means No Known Allergies) Mold??(HEADACHE, [...] Educational Leaflet Providered with your Discharge Instructions. Meclizine Oral Tablet?? Benign Paroxysmal Positional Vertigo?? Valuables and Belongings I fully understand and agree that [facility] accepts no responsibility for all my personal [...] of Valuable and Belonging List: With patient Date for Pt to Sign Valuables/Belongings: 10/06/23 16:29:00 ?? Other Discharge Information ? Pulmonary Rehab [...] are strongly encouraged to quit. Please call [employer] Link at [phone] or [phone] ([phone]) or log in to [email or web address] for referrals to smoking cessation programs. ?? 745 Suicide & Crisis Lifeline is available 19/04 if you or someone you know needs to find a reason to keep living. By calling 242 you'll be connected to a skilled, trained counselor at a crisis center in your area. INPATIENT DISCHARGE INSTRUCTIONS SIGNATURE PAGE LASHANDA RICHTER Location:[facility] Registration Date and Time:10/06/2023 05:56 EST Primary Care Physician: Not on Staff, PCP Attending Physician: Huey CRANE, Douglas Wilde, I LASHANDA RICHTER, have received the above patient education materials/instructions and have verbalized understanding. If ambulance or transport services are being used I further acknowledge being given a choice of service. ?? If you need to contact me, please call me at this number: . Patient/Fence Gate Assembler Name: Patient/Fence Gate Assembler Signature: Relationship to Patient: Witness Name/Signature: Date: * Qamar CRANE, Susan H: PERFORM Event Display: Patient Education Leaflets Authored Date: [id number] Meclizine Oral Tablet ?? [id number] Meclizine Oral Tablet Brands: Antivert, Dramamine Less Drowsy, Dramamine Nausea Relief, Naus-ease, [employer] 2 Uses This medicine is used for the following purposes: ??? motion sickness ??? dizziness ?? Instructions This medicine may be taken with or without food. Use the medicine one hour before you begin your travel. Store at room temperature away from heat, light, and moisture. Do not keep in the bathroom. If you forget to take a dose on time, take it as soon as you remember. If it is almost time for thenext dose, do not take the missed dose. Return to your normal schedule. Do not take 2 doses at one time. Tell your doctor and pharmacist about all your medicines. Include prescription and mjzx-ljn-ptcpedqdremydhhn, vitamins, and herbal medicines. Tell your doctor if symptoms do not get better or if they get worse. ?? Cautions Tell your doctor and pharmacist if you ever had an allergic reaction to a medicine. Do not use the medication any more than instructed. If possible, avoid using with marijuana or other medicines that can cause dizziness or drowsiness. These include allergy/cold products, muscle relaxers, sleep aids, and pain relievers. Your ability to stay alert or to react quickly may be impaired by this medicine. Do not drive or operate machinery until you know how this medicine will affect you. If you drink more than a few alcoholic beverages each day, ask your doctor whether you should be onthis medicine. Tell the doctor or pharmacist if you are , planning to be , or . Do not start or stop any other medicines without first speaking to your doctor or pharmacist. Do not share this medicine with anyone who has not been prescribed this medicine. ?? Side Effects The following is a list of some common side effects from this medicine. Please speak with your doctor about what you should do if you experience these or other side effects. ??? drowsiness or sedation ??? dry mouth ??? lack of energy and tiredness A few people may have an allergic reaction to this medicine. Symptoms can include difficulty breathing, skin rash, itching, swelling, or severe dizziness. If you notice any of these symptoms, seek medical help quickly. ?? Extra Please speak with your doctor, nurse, or pharmacist if you have any questions about this medicine. ?? [email or web address] IMPORTANT NOTE: This document tells you briefly how to take your medicine, but it does not tell youall there is to know about it. Your doctor or pharmacist may give you other documents about your medicine. Please talk to them if you have any questions. Always follow their advice. There is a more complete description of this medicine available in Macedonian. Scan this code on your smartphone or tablet or use the web address below. You can also ask your pharmacist for a printout. If you have any questions, please ask your pharmacist. The display and use of this drug information is subject to Terms of Use. Copyright(c) 2022 [employer]. ?? [employer]. All rights reserved. This information is not intended as a substitute for professional medical care. Always follow your healthcare professional's instructions. ?? * Susan Foote MD: PERFORM Event Display: Patient Education Leaflets Authored Date: [id number] Benign Paroxysmal Positional Vertigo ?? [id number] Benign Paroxysmal Positional Vertigo Benign paroxysmal positional vertigo (BPPV) is a common condition. You feel as if the room is spinning after changing position, moving your head quickly, or even just rolling over in bed. Vertigo is a false feeling of motion plus disorientation that makes it seem as if the room is spinning. A vertigo attack may cause sudden nausea, vomiting, and heavy sweating. Severe vertigo causes aloss of balance. You may even fall down. Vertigo is caused by a problem with the inner ear. The inner ear is located behind the middle ear. It is a part of the balance center of the body. It contains small calcium particles within fluid-filled canals (semicircular canals). These particles can move out of position. This may happen as a result of aging, head injury, or disease of the inner ear. Once that happens, moving your head in certain ways may cause the particles to stimulate the inner ear. This creates the feeling of vertigo. An episode of vertigo may last seconds, minutes, or hours. Once you are over the first episode of vertigo, it may never return. Sometimes symptoms return off and on for several weeks or longer. BPPV is treatable. The Harshad maneuver is a simple treatment for the common cause of vertigo. Your provider may try to put the calcium particles back in their correct position by having you do a series of head movements. Your provider may have you do other types of maneuvers, depending on which canals the crystals are in. Home care Follow these guidelines when caring for yourself at home: ??? Rest quietly in bed if your symptoms are severe. Change position slowly. There is usually 1 position that will feel best. This might be lying on one side or lying on your back with your head slightly raised on pillows. Until you have no symptoms, you are at a higher risk of falling. Let someone help you when you get up. Get rid of homehazards such as loose electrical cords and throw rugs. Don???t walk in unfamiliar areas that aren'tlighted. Use night-lights in bathrooms and kitchen areas. ??? Don't drive or work with dangerous machinery for 1 week after symptoms go away. This is in case symptoms return suddenly. ??? Take medicine as prescribed to relieve your symptoms. Unless another medicine was prescribed for nausea, vomiting, and vertigo, you may use wgxi-qac-hgzbhil motion sickness medicine. Examples of this include meclizine and dimenhydrinate. Don't take qfpz-ubz-oslrbtq medicine for this condition without talking with your healthcare provider, especially the first time. ?? Follow-up care Follow up with your healthcare provider or an ear, nose, and throat specialist (ENT or oracle developer), or as directed. Tell your provider about any ringing in your ear or hearing loss. If you had a CT or MRI scan, a specialist will review it. You'll be told of any new findings that may affect your care. ?? When to get medical advice Call your healthcare provider right away if any of these occur: ??? Vertigo gets worse even after taking prescribed medicine ??? Repeated vomiting even after taking prescribed medicine ??? Weakness that gets worse ??? Trouble hearing ??? Fever of 100.4??F (38??C) or higher, or as directed by your healthcare provider ?? Call 911 Call 911 right away if any of these occur: ??? Fainting ??? Severe headache or abnormal drowsiness or confusion ??? Weakness of an arm or leg or one side of the face ??? Trouble??with speech or vision ??? Trouble walking ??? Seizure ??? Fast heart rate ??? Chest pain ?? Last Reviewed Date: 2022 ?? [id number] [employer]. All rights reserved. This information is not intended as a substitute for professional medical care. Always follow your healthcare professional's instructions. ?? Patient Care team information Care Team Personnel Name: Morena Mcgraw RN Position: S RN Member Role: Primary Care Nurse Name: Nat Joe RN Position: [facility] OB RN Member Role: Primary Care Nurse Name: Carina VALERIO, Jo De Los Santos Position: [facility] AMB Nurse Member Role: Primary Care Nurse Name: Not on Staff, PCP Position: [facility] Physician (General Medicine) Member Role: PCP Name: Bharathi Robles RN Position: [facility] RN Member Role: Primary Care Nurse Name: [facility] Attending Position: [facility] ED Medicine MD Name: Sandy Groves RN Position: [facility] ED RN W/OE and Tasks Member Role: Patient Care Provider Care Team Related Persons Name: GRADY BEARDEN Address: [address] [place] [address] Name: NEENA COLE Address: [employer] Address: home [address] [place] [address] [place] Name: GRADY COLE Address: home [phone] [place] [address] Name: LEEANN SUTTON Address: home [address] [place] [address] Name: LUANNE SUTTON Address: home [address] [place] [address]
--- OUTSIDE RECORDS SUMMARY | 2024-03-23 07:52 | XMS_ITS | Continuity of Care Document ---
Author Organization [facility] ter Address [address] [place] [address]- Care Team Providers Care Physical Director Name Role Phone Khanh CARMONA, Adeola Primary Care Physician [place] [facility] [place] - 03/05/[address] [address]- Discharge Disposition: A-D/C Senior Care, Alf, or Assisted Fac Attending Physician: Mayuri Nguyen MD Admitting Physician: Mayuri Nguyen MD Referring Physician: Sadaf Miller LPN Referring Physician: Not on Staff, Referring MD [...] inactivated 11/16/14 Trell rded pneumococcal 23-valent vaccine 5/15/20 Given influ virus vac, H1N1, inactive(oldterm) 2 07/30/09 Given 1Result Comment: [facility] [id number] 2Admin Note: H1N1 Medications acetaminophen 325 mg oral capsule 2 capsule = 650 mg, By Mouth, Every 4 hours, PRN as needed for fever, # 120 capsule, 0 Refills, Acute 03/09/24 1:36:00 EDT, 03/05/24 1:36:00 EDT, Capsule, Partial fill upon patient request if the prescription is for a schedule II opioid drug. Start Date: 03/05/24 Stop Date: 03/09/24 Status: Ordered cloNIDine 0.1 mg oral tablet 0.1 mg, By Mouth, 4 times a day, # 56 tablet, Refills 0, Tot. Refills 0, Maintenance, 12/24/23 16:06:00 EDT, Route to Pharmacy Electronically, [facility]/pharmacy #[id number], Partial fill upon patient request ifthe prescription is for a schedule II opioid drug.,... Start Date: 12/24/23 Stop Date: 01/07/24 Status: Ordered Colace sodium 100 mg oral capsule 100 mg, 1, capsule, By Mouth, 2 times a day, Refills 0, Maintenance, 12/14/23 5:01:00 EDT, Partial fill upon patient request if the prescription is for a schedule II opioid drug. Start Date: 12/14/23 Status: Ordered doxazosin 2 mg oral tablet 2 mg, 1, tablet, By Mouth, 2 times a day, # 28 tablet, Refills 0, Tot. Refills 0, Maintenance, 12/24/23 16:37:00 EDT, Route to Pharmacy Electronically, [facility]/pharmacy #[id number], Partial fill upon patient request if the prescription is for a schedule II opio... Start Date: 12/24/23 Stop Date: 01/07/24 Status: Ordered Gas-X Extra Strength = 180 mg, By Mouth, 2 times a day, PRN Gas, 0 Refills, Maintenance, 12/14/23 5:15:00 EDT, Partial fill upon patient request if the prescription is for a schedule II opioid drug. Start Date: 12/14/23 Status: Ordered ibuprofen 200 mg oral tablet 400 mg, 2, tablet, By Mouth, Every 4 hours, PRN, # 120 tablet, Refills 0, Tot. Refills 0, Acute 03/09/24 1:36:00 EDT, for fever, 03/05/24 1:36:00 EDT, Print Requisition, Partial fill upon patient request if the prescription is for a schedule II opioid... Start Date: 03/05/24 Stop Date: 03/09/24 Status: Ordered levothyroxine 0.025 mg oral tablet = 50 mcg, By Mouth, Daily, # 30 tablet, 0 Refills, Maintenance, 12/09/23 12:48:00 EDT, Tablet, Partial fill upon patient request if the prescription is for a schedule II opioid drug. Start Date: 12/09/23 Status: Ordered levothyroxine 0.05 mg oral tablet 1 tablet = 50 mcg, By Mouth, Daily, # 14 tablet, 0 Refills, Maintenance, 12/24/23 16:10:00 EDT, Tablet, [facility]/pharmacy #[id number], Partial fill upon patient request if the prescription is for a schedule II opioid drug., 155, cm, 12/24/23 9:58:00 EDT, Height,... Start Date: 12/24/23 Stop Date: 01/07/24 Status: Ordered Melatonin = 5 mg, By Mouth, Daily at bedtime, PRN as needed for insomnia, 0 Refills, Maintenance, 12/14/23 5:03:00 EDT, Partial fill upon patient request if the prescription is for a schedule II opioid drug. Start Date: 12/14/23 Status: Ordered MiraLax oral powder for reconstitution = 17 Gm, By Mouth, Daily, # 238 Gm, 0 Refills, Maintenance, 12/14/23 4:54:00 EDT, REC Powder, Partial fill upon patient request if the prescription is for a schedule II opioid drug. Start Date: 12/14/23 Status: Ordered morphine 15 mg oral tablet, immediate release 1 tablet = 15 mg, By Mouth, Every 4 hours, PRN as needed for pain, # 5 tablet, 0 Refills, Acute 03/09/24 1:36:00 EDT, 03/05/24 1:35:00 EDT, Tablet, Partial fill upon patient request if the prescription is for a schedule II opioid drug. Start Date: 03/05/24 Stop Date: 03/09/24 Status: Ordered ondansetron 4 mg oral tablet 1 tablet = 4 mg, By Mouth, Every 8 hours, # 14 tablet, 0 Refills, Acute 03/09/24 1:36:00 EDT, 03/05/24 1:35:00 EDT, Tablet, Partial fill upon patient request if the prescription is for a schedule II opioid drug. Start Date: 03/05/24 Stop Date: 03/09/24 Status: Ordered senna 187 mg oral tablet 2 tablet = 17.2 mg, By Mouth, Daily at bedtime, Hold for diarrhea, # 28 tablet, 0 Refills, Maintenance, 12/18/23 9:42:00 EDT, Tablet, Partial fill upon patient request if the prescription is for a schedule II opioid drug. Start Date: 12/18/23 Stop Date: 01/01/24 Status: Ordered SEROquel 100 mg oral tablet 100 mg, 1, tablet, By Mouth, 3 times a day, # 42 tablet, Refills 0, Tot. Refills 0, Maintenance, 12/24/23 16:08:00 EDT, Route to Pharmacy Electronically, [facility] #[id number], Partial fill upon patientrequest if the prescription is for a schedule II op... Start Date: 12/24/23 Stop Date: 01/07/24 Status: Ordered SEROquel 300 mg oral tablet = 300 mg, By Mouth, Daily at bedtime, # 14 tablet, 0 Refills, Maintenance, 12/24/23 16:09:00 EDT, Tablet, [id number], Partial fill upon patient request if the prescription is for a schedule II opioid drug., 155, cm, 12/24/23 9:58:00 EDT, Aleyda... Start Date: 12/24/23 Stop Date: 01/07/24 Status: Ordered traZODone 50 mg oral tablet 2 tablets, By Mouth, Daily at bedtime, # 28 tablet, Refills 0, Tot. Refills 0, Maintenance, 12/24/23 16:13:00 EDT, Route to Pharmacy Electronically, [id number], Partial fill upon patient request if the prescription is for a schedule II opioid... Start Date: 12/24/23 Stop Date: 01/07/24 Status: Ordered Zoloft 50 mg oral tablet 1 tablet = 50 mg, By Mouth, Daily, 0 Refills, Maintenance, 12/14/23 4:56:00 EDT, Partial fill upon patient request if the prescription is for a schedule II opioid drug. Start Date: 12/14/23 Status: Ordered Problem List Condition Confirmation Course [...] Exam Date Time Procedure Performing Provider Status 03/04/24 10:55 PM Chest Portable Tushar , Doris; Auth (Verified) Notes: (Chest Portable) Reason For Exam: Shortness of Breath RESULT: Chest Portable Chest Portable Hx of Present Illness: Chronic pancreatitis, abd pain, nausea, ETOH detox; Reason: Shortness of Breath; Clinical Question(s): CHF COMPARISON: Priors, most recent dated 10/15/2023 FINDINGS: LINES AND TUBES: None. LUNGS AND PLEURA: Clear lungs. Normal pulmonary vascularity. No pleural effusion. No pneumothorax. HEART, MEDIASTINUM AND EMILY: Heart is normal in size. Normal mediastinal and hilar contour. BONES AND SOFT TISSUES: No acute abnormality. IMPRESSION: No acute abnormality. WSN: [id number] Ordering Physician: Mayuri Nguyen Dictated By: Cydney Loera MD Dictated Date/Time: 03/04/24 11:09 p Reviewed By: Cydney Loera MD Signed By: Cydney Loera MD Signed Date/Time: 03/04/24 11:09 pm Transcribed By: MIRANDA Transcribed Date/Time: 03/04/24 11:09 pm Vital Signs Most recent to oldest [Reference Range]: 1 2 3 Height 156 cm (03/05/24 1:32 AM) 156 cm (03/04/24 10:11 PM) Weight 58 kg (03/05/24 1:32 AM) 58 kg (03/04/24 10:11 PM) Oxygen Saturation [94-100 %] 97 % (03/05/24 1:32 AM) 100 % (03/04/24 11:36 PM) 99 % (03/04/24 10:11 PM) Pulse Rate [55-90 bpm] 74 bpm (03/05/24 1:32 AM) 71 bpm (03/04/24 11:36 PM) 75 bpm (03/04/24 10:37 PM) Body Mass Index [18.5-24.99 kg/m2] 23.83 kg/m2 (03/05/24 1:32 AM) Blood Pressure [90-138/55-84 mm Hg] 106/62mm Hg (03/05/24 1:32 AM) 113/74mm Hg (03/04/24 11:36 PM) 131/60mm Hg (03/04/24 10:37 PM) Respiratory Rate [16-30 br/min] 16 br/min (03/05/24 1:32 AM) 24 br/min (03/04/24 10:37 PM) 21 br/min (03/04/24 10:11 PM) Temperature [96.8-100.4 DegF] 97.8 DegF (03/04/24 10:11 PM) Mode of Delivery (Oxygen) Room air (03/05/24 1:32 AM) Room air (03/04/24 11:36 PM) Room air (03/04/24 10:11 PM) Blood pressure sites Arm, right (03/05/24 1:32 AM) Arm, right (03/04/24 11:36 PM) Arm, right (03/04/24 10:11 PM) Temperature Route Oral (03/04/24 10:11 PM) Dry Weight 58 kg (03/05/24 1:32 AM) 58 kg (03/04/24 10:11 PM) Social History Social History Type Response Smoking Status 5-9 cigarettes (betw een 1/4 to 1/2 pack)/day in last 30 days; Interested in cessation: No; Tobacco user in household: Yes entered on: 12/14/23 Sex EKG study * Event Display: EKG Authored Date: * Event Display: ECG 12-Lead Authored Date: Please click on pdf link to open report * Event Display: ECG 12-Lead Authored Date: Ventricular Rate: 68 BPM Atrial Rate: 68 BPM P-R Interval: 132 ms QRS Duration: 82 ms Q-T Interval: 414 ms QTC Calculation(Bazett): 440 ms P [place]: 57 degrees R [place]: 58 degrees T [place]: 63 degrees Normal sinus rhythm Normal ECG When compared with ECG of 24-DEC-2023 10:05, No significant change was found Confirmed by Matias Esteban ([id number]) on 03/05/2024 7:25:50 AM [place]: Matias Esteban Note * Wendy CRANE, Mayuri Painter: PERFORM Event Display: Patient Education Leaflets Authored Date: [facility] - If you need a Doctor or Clinic ?? 34 If You Need a Doctor or Clinic ?? Call [facility] PCP Assignment Line to help you find a doctor:?? [phone] ?? Clinics in [place], [place] For a full list of clinics:? [email or web address] ?? [facility]? [address] [phone] [facility] Clinic?[address]?[phone] [facility]?[address][phone] [facility]?[address][phone] [facility]?[address] [phone] [facility]?[address][phone] [facility]?[address][phone] [facility]?[address] [phone] [facility]? [address][phone] [facility] social [facility] research scientist?[address][phone] [facility]?[address][phone] [facility]?[address][phone] [facility]?[address][phone] [facility]? [address][phone] [facility]?[address][phone] ? * Wendy CRANE, Mayuri Painter: PERFORM Event Display: Patient Education Leaflets Authored Date: [id number] Epigastric Pain (Uncertain Cause) ?? [id number] Epigastric Pain (Uncertain Cause) Epigastric pain is pain in the upper abdomen. It can be a sign of disease. Common causes include: ??? Acid reflux (stomach acid flowing up into the esophagus) ??? Gastritis (irritation of the stomach lining). Most often this is from aspirin or NSAIDs (nonsteroidal anti-inflammatory drugs) such asibuprofen, bacteria called H. pylori, or frequent alcohol use. ??? Peptic ulcer disease ??? Inflammation of the pancreas (pancreatitis) ??? Gallstone ??? Inflammation in the gallbladder (cholecystitis) Pain may be dull or burning. It may spread upward to the chest or to the back. There may be other symptoms such as belching, bloating, cramps, or hunger pains. There may be weight loss or poor appetite, nausea, or vomiting. Since the cause of your pain is not certain yet, you may need more tests. Sometimes your healthcareprovider will treat you for the most likely condition to see if there is improvement before doing more tests. Talk with your provider about what is best for you. Home care Medicines ??? Antacids help neutralize the normal acids in your stomach. If you don???t like the liquid, you can try a chewable one. You may find one works better than another for you. Overuse can cause diarrhea or constipation. Call your provider if you have questions about your medicines or concerns about side effects. ??? Acid blockers (H2 blockers) decrease acid production. Examples are cimetidine and famotidine. ??? Acid inhibitors (PPIs) decrease acid production in a different way than blockers. You may find they work better but can take a little longer to take effect. Examples are omeprazole, lansoprazole, pantoprazole, rabeprazole, and esomeprazole. Many of these are available naal-[id number]-[id number] or as generics. ??? Take an antacid 30 to 60??minutes after eating and at bedtime, but not at the same time as an acid belinda. ??? Try not to take NSAIDs such as ibuprofen. Aspirin may also cause problems, but if you are taking it for your heart or other medical reasons, talk to your healthcare provider before stopping it. Diet ??? If certain foods seem to cause your pain, try not to eat them. Certain foods can worsen symptoms of gastritis. Limit or avoid fatty, fried, and spicy foods, as well as coffee, chocolate, mint, and foods with high acid content such as tomatoes and citrus fruit and juices (orange, grapefruit, lemon). ??? Eat slowly and chew food well before swallowing. ??? Don't drink alcohol. It can irritate the stomach. If you have trouble giving up alcohol, ask your provider for treatment resources. ??? Don't consume caffeine or use tobacco. These can delay healing??and worsen your problem. ??? Try eating smaller meals with snacks in between. Don't eat large meals before bedtime. ??? Keep an emptystomach for 2 to 3 hours before lying down. ??? Prop the head of the bed up if you have overnight symptoms. This helps acid clear from your esophagus. ?? Follow-up care Follow up with your healthcare provider or as advised. ?? When to seek medical advice Call your healthcare provider right away if any of the following occur: ??? Stomach pain worsens ormoves to the right lower part of the abdomen ??? Frequent vomiting (can???t keep down liquids) ??? Blood in the stool or vomit (red or black color) ??? Fever of 100.4??F (38??C) or higher, or as directed by your healthcare provider ??? Abdominal swelling ??? Worsening symptoms or new symptoms ?? Call 911 Call 911 if any of these occur: ??? Chest pain appears, or if pain worsens or spreads to the back, neck, shoulder, or arm ??? Feeling weak or dizzy, fainting, or having trouble breathing ?? Last Reviewed Date: 2022 ?? [id number] [employer]. All rights reserved. This information is not intended as a substitute for professional medical care. Always follow your healthcare professional's instructions. ?? Patient Care team information Care Team Personnel Name: Tricia Elise RN Position: [facility] RN Member Role: Primary Care Nurse Name: Morena Mcgraw RN Position: [facility] RN Member Role: Primary Care Nurse Name: Nat Joe RN Position: [facility] OB RN Member Role: Primary Care Nurse Name: Jo Lim RN Position: [facility] AMB Nurse Member Role: Primary Care Nurse Name: Adeola Cassidy NP Position: [facility] PCO Associate Professional Member Role: PCP Address: Address: [address] [place] [id number] Name: Bharathi Robles RN Position: [facility] RN Member Role: Primary Care Nurse Name: Katie Huggins RN Position: [facility] RN Member Role: Primary Care Nurse Name: Olga Alas RN Position: [facility] RN Member Role: Primary Care Nurse Care Team Related Persons Name: GRADY BEARDEN Address: home [address] [place] [address] Name: NEENA COLE Address: [employer] Address: home [address] [place] [address] [place] Name: GRADY COLE Address: home [address] [place], [place] Name: LEEANN SUTTON Address: home [address] [address] Name: LUANNE SUTTON Address: home [address] [place] [address]
--- OUTSIDE RECORDS SUMMARY | 2024-03-23 07:52 | XMS_ITS | Continuity of Care Document ---
Author Organization [facility] Adult Address [address] [place] [address]- Care Team Providers Care Program Facilitator Name Role Phone Not on Staff, PCP Primary Care Physician Unavail able Encounter [facility] Date(s): 08/23/23 - 09/22/23 [facility] Adult [address] [place] [address]- Allergies, Adverse Reactions, Alerts Substance Reaction Severity [...] H1N1, inactive(oldterm) 2 07/30/09 Given 1[facility] [id number] 2Admin Note: H1N1 Medications KlonoPIN 1 mg oral tablet 1 tablet = 1 mg, By Mouth, 3 times a day, 0 Refills, Maintenance, 07/11/23 10:31:00 EDT, Partial fill upon patient request if the prescription is for a schedule II opioid drug. Start Date: 07/11/23 Status: Ordered loratadine 10 mg oral tablet 10 mg, 1, tablet, By Mouth, Daily, # 20 tablet, Refills 0, Tot. Refills 0, Maintenance, 09/11/23 7:05:00 EST, Print Requisition, Partial fill upon patient request if the prescription is for a schedule II opioid drug. Start Date: 09/11/23 Stop Date: 09/18/23 Status: Ordered Seroquel 300 mg, By Mouth, [...] Active PTSD (post-traumatic stress disorder) Confirmed Active Severe obesity Confirmed Active MDD (major depressive disorder), recurrent [...] Team Personnel Name: Morena Mcgraw RN Position: [facility] RN Member Role: Primary Care Nurse Name: Nat Joe RN Position: [facility] OB RN Member Role: Primary Care Nurse Name: Jo Lim RN Position: [facility] AMB Nurse Member Role: Primary Care Nurse Name: Not on Staff, PCP Position: [facility] Physician (General Medicine) Member Role: PCP Care Team Related Persons Name: GRADY BEARDEN Address: home [address] [place] [address] Name: ELAINE COLEING Address: [employer] Address: home [address] [place] [address] Name: GRADY COLE Address: home [phone] [place] [address] Name: LEEANN SUTTON Address: home [address] [place] [address] Name: LUANNE SUTTON Address: home [address] [place] [address]
--- OUTSIDE RECORDS SUMMARY | 2024-03-23 07:52 | XMS_ITS | Continuity of Care Document ---
Author Organization [facility] Adult Address [address] [place] [address]- Care Team Providers Care General Accounting Clerk Name Role Phone Khanh CARMONA, Adeola Primary Care Physician [place] [facility] [place] 02/03/24 [facility] Adult [address] [place] [address]- Attending Physician: Nai Blood MD Allergies, Adverse Reactions, Alerts Substance Reaction [...] Give n influenza virus vaccine, inactivated 06/14/18 Trlel rded influenza virus vaccine, inactivated 05/14/17 Trell rded influenza virus vaccine, inactivated 11/02/16 Trell rded influenza virus vaccine, inactivated 11/05/15 Give n influenza virus vaccine, inactivated 11/16/14 Trell rded pneumococcal 23-valent vaccine 02/09/20 Given influ virus vac, H1N1, inactive(oldterm) 2 07/30/09 Given 1Result Comment: [facility] [id number] 2Admin Note: H1N1 Medications cloNIDine 0.1 mg oral tablet 0.1 mg, By Mouth, 4 times a day, # 56 tablet, Refills 0, Tot. Refills 0, Maintenance, 12/24/23 16:06:00 EDT, Route to [facility]acy Electronically, [id number], Partial fill upon patient request ifthe [...] 12/24/23 16:37:00 EDT, Route to Pharmacy Electronically, [facility]/pharmacy #[id number], Partial fill upon patient request [...] opioid drug. Start Date: 12/14/23 Status: Ordered levothyroxine 0.025 mg oral tablet [...] 0 Refills, Maintenance, 12/24/23 16:10:00 EDT, Tablet, [id number], Partial fill upon [...] opioid drug. Start Date: 12/14/23 Status: Ordered senna 187 mg oral tablet [...] 12/24/23 16:08:00 EDT, Route to Pharmacy Electronically, [facility]/pharmacy #[id number], Partial fill upon patientrequest if the [...] opioid drug., 155, cm, 12/24/23 9:58:00 EDT, Heigh... Start Date: 12/24/23 Stop Date: 01/07/24 Status: [...] in household: Yes entered on: 12/14/23 Sex Patient Care team information Care Team Personnel Name: Tricia Elise RN Position: [facility] RN Member Role: Primary Care Nurse Name: Morena Mcgraw RN Position: [facility] RN Member Role: Primary Care Nurse Name: Nat Joe RN Position: [facility] OB RN Member Role: Primary Care Nurse Name: Jo Lim RN Position: [facility] KIMBERLI Nurse Member Role: Primary Care Nurse Name: Adeola Cassidy NP Position: [facility] PCO Associate Professional Member Role: PCP Address: Address: [address] [place] [address] [address] [place] [address]- Name: Vivian Graham RN Position: [facility] RN Member Role: Primary Care Nurse Name: Bharathi Robles RN Position: S RN Member Role: Primary Care Nurse Name: Katie Huggins RN Position: S RN Member Role: Primary Care Nurse Name: Olga Alas RN Position: [facility] RN Member Role: Primary Care Nurse Care Team Related Persons Name: GRADY BEARDEN Address: home [address] [place] [address] Name: COLE, BLECASSYING Address: [employer] Address: home [address] [place] [address] Name: GRADY COLE Address: home [address] [place] [address] Name: LEEANN SUTTON Address: home [address] [place] [address] Name: LUANNE SUTTON Address: home [address] [place] [address]
--- OUTSIDE RECORDS SUMMARY | 2024-03-23 07:52 | XMS_ITS | Continuity of Care Document ---
Author Organization [facility] Adult Address [address] [place] [phone]- Care Team Providers Care Ready To Wear Department Manager Name Role Phone Khanh CARMONA, Adeola Primary Care Physician Encounter [facility] Date(s): 12/13/23 - 01/12/24 [facility] [address] [place] [id number]- Allergies, Adverse Reactions, Alerts Substance Reaction Severity [...] H1N1, inactive(oldterm) 2 07/30/09 Given 1Result Comment: [facility] [id number] 2Admin Note: H1N1 Medications cloNIDine 0.1 mg oral tablet 0.1 mg, By Mouth, 4 times a day, # 56 tablet, Refills 0, Tot. Refills 0, Maintenance, 12/24/23 16:06:00 EDT, Route to Pharmacy Electronically, [facility]/pharmacy #[id number], Partial fill upon patient request ifthe [...] 12/24/23 16:37:00 EDT, Route to Pharmacy Electronically, [facility]/pharmacy #[id number], Partial fill upon patient request if [...] opioid drug. Start Date: 12/14/23 Status: Ordered Milk of Magnesia 8% oral suspension 30 mL = 2.4 Gm, By Mouth, Daily at bedtime, PRN for constipation, for 30 days, # 480 mL, 0 Refills,Acute 01/17/24 9:43:00 EDT, 12/18/23 9:43:00 EDT, Suspension, Partial fill upon patient request if the prescription is for a schedule II opioid drug. Start Date: 12/18/23 Stop Date: 01/17/24 Status: Ordered MiraLax oral powder for reconstitution [...] 12/24/23 16:08:00 EDT, Route to Pharmacy Electronically, [facility]/pharmacy #[id number], Partial fill upon patientrequest if the prescription is for a schedule II op... Start Date: 12/24/23 Stop Date: 01/07/24 Status: Ordered SEROquel 300 mg oral tablet = 300 mg, By Mouth, Daily at bedtime, # 14 tablet, 0 Refills, Maintenance, 12/24/23 16:09:00 EDT, Tablet, [facility]/pharmacy #[id number], Partial fill upon patient request if the prescription is for a schedule II opioid drug., 155, cm, 12/24/23 9:58:00 EDT, Heigh... Start Date: 12/24/23 Stop Date: 01/07/24 Status: Ordered thiamine 100 mg oral tablet 100 mg, By Mouth, Daily, for 30 days, # 30 tablet, Refills 0, Tot. Refills 0, Acute 01/17/24 9:43:00 EDT, 12/18/23 9:43:00 EDT, Do Not Route, Partial fill upon patient request if the prescription is for a schedule II opioid drug. Start Date: 12/18/23 Stop Date: 01/17/24 Status: Ordered traZODone 50 mg oral tablet 2 tablets, By Mouth, Daily at bedtime, # 28 tablet, Refills 0, Tot. Refills 0, Maintenance, 12/24/23 16:13:00 EDT, Route to Pharmacy Electronically, [facility]/pharmacy #[id number], Partial fill upon patient request if the [...] Team Personnel Name: Tricia Elise RN Position: [facility] RN Member Role: Primary Care Nurse Name: Morena Mcgraw RN Position: [facility] RN Member Role: Primary Care Nurse Name: Nat Joe RN Position: [facility] OB RN Member Role: Primary Care Nurse Name: Jo Lim RN Position: [facility] AMB Nurse Member Role: Primary Care Nurse Name: Adeola Cassidy NP Position: [facility] PCO Associate Professional Member Role: PCP Address: Address: [address] [place] [phone]- Name: Vivian Graham RN Position: [facility] RN Member Role: Primary Care Nurse Name: Bharathi Robles RN Position: [facility] RN Member Role: Primary Care Nurse Name: Katie Huggins RN Position: [facility] RN Member Role: Primary Care Nurse Name: Olga Alas RN Position: [facility] RN Member Role: Primary Care Nurse Care Team Related Persons Name: SULEIMAN GRADY Address: home [address] [place], [place] Name: COLENEENA Address: AMERCN Address: home [address] [place] [address] [place] Name: GRADY COLE Address: home [address] [place], [place] Name: LEEANN SUTTON Address: home [address] [address] Name: LUANNE SUTTON Address: home [address] [place] [address]
--- OUTSIDE RECORDS SUMMARY | 2024-03-23 07:52 | XMS_ITS | Continuity of Care Document ---
Author Organization [facility] Address [address] [place] [address]- Care Team Providers Care Magnetic Tape Typewriter Operator Name Role Phone Adeola Cassidy NP Primary Care Physician Encounter [facility] Date(s): 12/13/23 - 12/13/[address] [address]- Discharge Disposition: A-D/C Home Attending Physician: Abhijit Avalos MD Admitting Physician: Abhijit Avalos MD Referring Physician: Not on Staff, Referring [...] H1N1, inactive(oldterm) 2 07/30/09 Given 1Result Comment: [facility] [id number] 2Admin Note: H1N1 Medications Ativan 1 mg oral tablet 1 tablet = 1 mg, By Mouth, 4 times a day, PRN for anxiety, 0 Refills, Maintenance, 12/05/23 17:24:00 EDT, Tablet, Partial fill upon patient request if the prescription is for a schedule II opioid drug. Start Date: 12/05/23 Status: Ordered cloNIDine 0.1 mg oral tablet 0.1 mg, By Mouth, 4 times a day, # 30 tablet, Refills 0, Maintenance, 12/05/23 17:24:00 EDT, Partial fill upon patient request if the prescription is for a schedule II opioid drug. Start Date: 12/05/23 Status: Ordered doxazosin 2 mg oral tablet 2 mg, 1, tablet, By Mouth, 2 times a day, # 90 tablet, Refills 0, Maintenance, 12/05/23 17:25:00 EDT, Partial fill upon patient request if the prescription is for a schedule II opioid drug. Start Date: 12/05/23 Status: Ordered GaviLAX oral powder for reconstitution = 17 Gm, By Mouth, Daily, Hold for diarrhea, # 238 Gm, 0 Refills, Maintenance, 12/09/23 12:47:00 EDT, REC Powder, Partial fill upon patient request if the prescription is for a schedule II opioid drug. Start Date: 12/09/23 Status: Ordered hydrOXYzine pamoate 50 mg oral capsule 1 capsule = 50 mg, By Mouth, 4 times a day, PRN for anxiety, # 40 capsule, 0 Refills, Maintenance, 12/05/23 17:23:00 EDT, Capsule, Partial fill upon patient request if the prescription is for a schedule II opioid drug. Start Date: 12/05/23 Status: Ordered KlonoPIN 1 mg oral tablet 1 tablet = 1 mg, By Mouth, Daily, # 14 tablet, 0 Refills, Maintenance, 10/08/23 11:09:00 EST, Tablet, [facility] 3, Partial fill upon patient request if the prescription is for a scheduleII opioid drug., 155, cm, 10/07/23 11:04:00 EST, He... Start Date: 10/08/23 Stop Date: 10/22/23 Status: Ordered levothyroxine 0.025 mg oral tablet = 50 mcg, By Mouth, Daily, # 30 tablet, 0 Refills, Maintenance, 12/09/23 12:48:00 EDT, Tablet, Partial fill upon patient request if the prescription is for a schedule II opioid drug. Start Date: 12/09/23 Status: Ordered Nicoderm C-Q Clear 21 mg/24 hr transdermal film, extended release 1 patch, Topically, Daily, # 30 patch, 0 Refills, Maintenance, 12/09/23 12:46:00 EDT, Patch, Partial fill upon patient request if the prescription is for a schedule II opioid drug. Start Date: 12/09/23 Status: Ordered nicotine 4 mg oral transmucosal gum = 4 mg, Chew, Every hour, PRN Other, Nicotine Cravings, # 40 each, 0 Refills, Maintenance, 12/09/2411:46:00 EDT, Gum, Partial fill upon patient request if the prescription is for a schedule II opioid drug. Start Date: 12/09/23 Status: Ordered olanzapine 2.5 mg oral tablet 2.5 mg, 1, tablet, TAKE 1 TABLET BY MOUTH TWICE A DAY NEEDED Start Date: 10/06/23 Status: Ordered senna 187 mg oral tablet 1 tablet = 8.6 mg, By Mouth, 2 times a day, Hold for diarrhea, # 100 tablet, 0 Refills, Maintenance, 12/09/23 12:47:00 EDT, Tablet, Partial fill upon patient request if the prescription is for a schedule II opioid drug. Start Date: 12/09/23 Status: Ordered Seroquel 300 mg, By Mouth, Daily at bedtime, Refills 0, Maintenance, 07/11/23 10:30:00 EDT, Partial fill upon patient request if the prescription is for a schedule II opioid drug. Start Date: 07/11/23 Status: Ordered SEROquel 100 mg oral tablet 100 mg, 1, tablet, By Mouth, 3 times a day, # 90 tablet, Refills 0, Maintenance, 12/05/23 17:21:00 EDT, Partial fill upon patient request if the prescription is for a schedule II opioid drug. Start Date: 12/05/23 Status: Ordered traZODone 50 mg oral tablet 2 tablets, By Mouth, Daily at bedtime, # 30 tablet, Refills 0, Maintenance, 12/05/23 20:43:00 EDT, Partial fill upon patient request if the prescription is for a schedule II opioid drug. Start Date: 12/05/23 Status: Ordered Problem List Condition Confirmation Course [...] Exam Date Time Procedure Performing Provider Status 12/13/23 6:38 PM US RUQ Vivien Davies; Daija [facility] (Verified) Notes: (US RUQ) Reason For Exam: Abdominal Pain;Other: RESULT: US RUQ US RUQ Hx of Present Illness: Epigastric pain. Started last night. Hx: of a ileus. Recent hospitalization last week for the same issue. ; Reason: Other:; Abdominal Pain; Clinical Question(s): Cholecystitis; Cholelithiasis COMPARISON: None. FINDINGS: Liver: Diffusely echogenic parenchyma. No suspicious lesion. Smooth hepatic contour. Main portal vein patent with normal hepatopetal direction of flow. Gallbladder: No gallstones. Normal wall thickness. No pericholecystic fluid. Negative Ruiz sign. Biliary Tree: No intrahepatic or extrahepatic bile duct dilation is identified. Common duct measures: 0.6 cm. Pancreas: Partially obscured by overlying bowel gas. No abnormality in the visualized portions of the pancreas. Right kidney: 10.9 cm in length. Normal parenchymal echotexture and thickness. No hydronephrosis, stone or mass. IMPRESSION: Echogenic liver likely representing hepatic steatosis. Normal gallbladder. WSN: [id number] Ordering Physician: Anthony Aguilar Dictated By: Scot Ford MD Dictated Date/Time: 12/13/23 6:59 pm Reviewed By: Scot Ford MD Signed By: Scot Ford MD Signed Date/Time: 12/13/23 6:59 pm Transcribed By: MIRANDA Transcribed Date/Time: 12/13/23 6:50 pm Vital Signs Most recent to oldest [Reference Range]: 1 2 3 Height 155 cm (12/13/23 2:05 PM) Weight 59.0 kg (12/13/23 2:05 PM) Oxygen Saturation [94-100 %] 98 % (12/13/23 6:06 PM) 99 % (12/13/23 4:48 PM) 100 % (12/13/23 2:05 PM) Pulse Rate [55-90 bpm] 79 bpm (12/13/23 6:06 PM) 78 bpm (12/13/23 4:48 PM) 74 bpm (12/13/23 2:05 PM) Blood Pressure [90-138/55-84 mm Hg] 132/88mm Hg (12/13/23 6:06 PM) 133/84mm Hg (12/13/23 4:48 PM) 135/92mm Hg (12/13/23 2:05 PM) Respiratory Rate [16-30 br/min] 18 br/min (12/13/23 6:06 PM) 18 br/min (12/13/23 4:48 PM) 18 br/min (12/13/23 2:05 PM) Temperature [96.8-100.4 DegF] 97.6 DegF (12/13/23 2:05 PM) Mode of Delivery (Oxygen) Room air (12/13/23 6:06 PM) Room air (12/13/23 4:48 PM) Room air (12/13/23 2:05 PM) Temperature Route Oral (12/13/23 2:05 PM) Dry Weight 59.0 kg (12/13/23 2:05 PM) Weight Obtained Via Patient/family state d (12/13/23 2:05 PM) Social History Social History Type Response Smoking Status 5-9 cigarettes (betw een 1/4 to 1/2 pack)/day in last 30 days; Interested in cessation: No entered on: 08/10/22 Sex Patient Care team information Care Team Personnel Name: Tricia Elise RN Position: [facility] RN Member Role: Primary Care Nurse Name: Morena Mcgraw RN Position: [facility] RN Member Role: Primary Care Nurse Name: Nat Joe RN Position: [facility] OB RN Member Role: Primary Care Nurse Name: Jo Lim RN Position: [facility] AMB Nurse Member Role: Primary Care Nurse Name: Adeola Cassidy NP Position: [facility] PCO Associate Professional Member Role: PCP Address: Address: [address] [place] [address]- Name: Vivian Graham RN Position: [facility] RN Member Role: Primary Care Nurse Name: Bharathi Robles RN Position: [facility] RN Member Role: Primary Care Nurse Name: Olga Alas RN Position: [facility] RN Member Role: Primary Care Nurse Care Team Related Persons Name: GRADY BEARDEN Address: [address] [place] [address] Name: COLE, BLECASSYING Address: [employer] Address: [address] [place] [address] [place] Name: GRADY COLE Address: [address] [place] [address] Name: LEEANN SUTTON Address: [address] [address] Name: LUANNE SUTTON Address: home [address] [place] [address]
--- OUTSIDE RECORDS SUMMARY | 2024-03-23 07:53 | XMS_ITS | Continuity of Care Document ---
Author Organization [facility] ter Address [address] [place] [id number]- Care Team Providers Care Customs Import Specialist Name Role Phone Not on Staff, PCP Primary Care Physician Unavail able Encounter [facility] Date(s): 09/10/23 - 09/11/[address] [address]- Discharge Disposition: A-D/C Home Attending Physician: Kathie Jade DO Admitting Physician: Kathie Jade DO Referring Physician: Not on Staff, Referring [...] Given 1Result Comment: [facility] [id number] 2Admin Note: H1N1 Medications docusate-senna 50 mg-8.6 mg oral capsule 2 capsule, By Mouth, Daily in PM, for 7 days, # 14 capsule, 0 Refills, Acute 09/18/23 7:02:00 EST, 09/11/23 7:02:00 EST, Capsule, Partial fill upon patient request if the prescription is for a schedule II opioid drug. Start Date: 09/11/23 Stop Date: 09/18/23 Status: Ordered KlonoPIN 1 mg oral tablet [...] Date: 09/11/23 Stop Date: 09/18/23 Status: Ordered MiraLax oral powder for reconstitution = 17 Gm, By Mouth, Daily, PRN Constipation, for 7 days, dissolve in water before taking, # 119 Gm, 0 Refills, Acute 09/18/23 7:02:00 EST, 09/11/23 7:02:00 EST, REC Powder, Partial fill upon patient request if the prescription is for a schedule II opio... Start Date: 09/11/23 Stop Date: 09/18/23 Status: [...] Exam Date Time Procedure Performing Provider Status 09/11/23 6:[address] Abd/Pelvis W/ IV Contrast Only Aisha Ayers; Auth (Verified) Notes: (CT Abd/Pelvis W/ IV Contrast Only) Reason For Exam: LLQ abdominal pain;Other: RESULT: CT Abd/Pelvis W/ IV Contrast Only CT Abd/Pelvis W/ IV Contrast Only Hx of Present Illness: rash x 3 days and abd distension with fluid retention; Reason: LLQ abdominalpain; Clinical Question(s): Diverticulitis TECHNIQUE: Spiral CT through the abdomen and pelvis with IV contrast formatted in 3 planes. 80 cc of Omnipaque 300 was administered intravenously. This study was performed without oral contrast. Weight-based protocol using automatic tube modulation was used to optimize exposure parameters. CTDIvol Body: 13.60 mGy, DLP Body: 731 mGy*cm. COMPARISON: CT abdomen and pelvis with contrast 08/08/2019. FINDINGS: Double Backer View Findings, Lines and Tubes: None. Visualized Chest: Lung bases are clear. No pleural effusion. The heart is normal in size. No pericardial effusion. Diaphragm: Normal. Liver: Normal. Gallbladder: No CT evidence of gallbladder pathology. Bile ducts: No biliary ductal dilation. Spleen: Normal. Pancreas: Normal. Adrenal glands: Normal. Kidneys and ureters: Unchanged 2 mm interpolar nonobstructing stone additional tiny 1 mm stone on the left. No evidence of hydronephrosis or suspicious lesions bilaterally. Bladder: Normal. Reproductive organs: Anteverted uterus. Small follicles in a corpus luteum in the left ovary. Stomach, small bowel, and large bowel: Stomach is normal. Mildly diffusely fluid distended small bowel without significant wall thickening. No focal transition point. Moderate to large colonic stool burden. No evidence of bowel obstruction. No diverticular disease Appendix: Normal. Peritoneum and retroperitoneum: No ascites or pneumoperitoneum. No omental or mesenteric lesions. Lymph nodes: No pathologically enlarged lymph nodes Blood vessels: Mild vascular calcifications but no aneurysm. No evidence of venous thrombosis. Abdominal and pelvic wall: Very small fat-containing umbilical hernia. Bones: No acute abnormality. IMPRESSION: No acute intra-abdominal abnormality Moderate to large colonic stool burden. No evidence of bowel obstruction. Nonobstructing nephrolithiasis bilaterally. Wet read provided via [facility] by Dr. Smith on 09/11/2023 6:37 AM. I have personally reviewed the images and I agree with this report. WSN: [id number] Ordering Physician: Carlos Uribe Dictated By: Pasha Smith DO Dictated Date/Time: 09/11/23 7:25 am Reviewed By: Maikol Hassan MD Signed By: Maikol Hassan MD Signed Date/Time: 09/11/23 7:30 am Transcribed By: MIRANDA Transcribed Date/Time: 09/11/23 6:38 am Vital Signs Most recent to oldest [Reference Range]: 1 2 3 Height 155 cm (09/11/23 2:18 AM) 155 cm (09/10/23 11:42 PM) Weight 130 kg (09/11/23 2:18 AM) 130 kg (09/10/23 11:42 PM) Oxygen Saturation [94-100 %] 98 % (09/11/23 7:30 AM) 97 % (09/11/23 4:43 AM) 100 % (09/10/23 11:42 PM) Pulse Rate [55-90 bpm] 84 bpm (09/11/23 4:43 AM) 83 bpm (09/10/23 11:42 PM) Body Mass Index [18.5-24.99 kg/m2] 54.11 kg/m2 *>HHI* (09/10/23 11:42 PM) Blood Pressure [90-138/55-84 mm Hg] 113/75mm Hg (09/11/23 7:30 AM) 113/71mm Hg (09/11/23 4:43 AM) 114/71mm Hg (09/10/23 11:42 PM) Respiratory Rate [16-30 br/min] 16 br/min (09/11/23 7:30 AM) 19 br/min (09/11/23 4:43 AM) 20 br/min (09/10/23 11:42 PM) Temperature [96.8-100.4 DegF] 98.2 DegF (09/11/23 4:43 AM) 97.9 DegF (09/10/23 11:42 PM) Mode of Delivery (Oxygen) Room air (09/11/23 7:30 AM) Room air (09/11/23 4:43 AM) Room air (09/10/23 11:42 PM) Blood pressure sites Arm, right (09/11/23 7:30 AM) Arm, right (09/11/23 4:43 AM) Arm, right (09/10/23 11:42 PM) Temperature Route Oral (09/11/23 4:43 AM) Oral (09/10/23 11:42 PM) Dry Weight 59.5 kg (09/11/23 2:18 AM) 59.5 kg (09/10/23 11:42 PM) Social History Social History Type Response Smoking Status 5-9 cigarettes (betw een 1/4 to 1/2 pack)/day in last 30 days; Interested in cessation: No entered on: 08/10/22 Sex Note * Carlos Moulton: PERFORM Event Display: Patient Education Leaflets Authored Date: [id number] Constipation (Adult) ?? [id number] Constipation (Adult) Constipation means that you have bowel movements that are less frequent than usual. Stools often become very hard and difficult to pass. Constipation is very common. At some point in life, it affects almost everyone. Since everyone's bowel habits are different, what is constipation to one person may not be to another. Your healthcare provider may do tests to diagnose constipation. It depends on what??they??find when evaluating you. Symptoms of constipation include: ??? Abdominal pain ??? Bloating ??? Vomiting ??? Painful bowel movements ??? Itching, swelling, bleeding, or pain around the anus Causes Constipation can have many causes. These include: ??? Diet low in fiber ??? Too much dairy ??? Not drinking enough liquids ??? Lack of exercise or physical activity (especially true for older adults)??? Changes in lifestyle or daily routine, including , aging, work, and travel ??? Frequent use or misuse of laxatives ??? Ignoring the urge to have a bowel movement or delaying it until later ??? Medicines, such as certain prescription pain medicines, iron supplements, antacids, certain antidepressants, and calcium supplements ??? Diseases like irritable bowel syndrome, bowel obstructions, stroke, diabetes, thyroid disease, Parkinson disease, hemorrhoids, and colon cancer ?? Complications Possible complications of constipation can include: ??? Hemorrhoids ??? Rectal bleeding from hemorrhoids or anal fissures??(skin tears) ??? Hernias ??? Chronic constipation ??? Fecal impaction, a severe form of constipation in which a large amount of hard stool is in your rectum that you can't pass??? Bowel obstruction or perforation ?? Home care All treatment should be done after talking with your healthcare provider. This is especially true if you have another medical problem, are taking prescription medicines, or are an older adult. Treatment most often involves lifestyle changes. You may also need medicines. Your healthcare provider will tell you which will work best for you. Follow the advice below to help avoid this problem in the future. ?? Lifestyle changes These lifestyle changes can help prevent constipation: ??? Diet. Eat a high- fiber diet, with fresh fruit and vegetables, and reduce dairy intake, meats, and processed foods ??? Fluids. It's importantto get enough fluids each day. Drink plenty of water when you eat more fiber. If you are on diet that limits the amount of fluid you can have, talk about this with your healthcare provider. ??? Regular exercise. Check with your healthcare provider first. ?? Medicines Take any medicines as directed. Some laxatives are safe to use only every now and then. Others can be taken on a regular basis. While laxatives don't cause bowel dependence, they are treating the symptoms. So your constipation may return if you don't make other changes. Talk with your healthcare provider or pharmacist if you have questions. Prescription pain medicines can cause constipation. If you are taking this kind of medicine, ask your healthcare provider if you should also take a stool softener. Medicines you may take to treat constipation include: ??? Fiber supplements ??? Stool softeners ???Laxatives ??? Enemas ??? Rectal suppositories ?? Follow-up care Follow up with your healthcare provider if symptoms don't get better in the next few days. You may need to have more tests or see a specialist. ?? Call 911 Call 911 if any of these occur: ??? Trouble breathing ??? Stiff, rigid abdomen that is severely painful to touch ??? Large amount of blood in the stool ??? Confusion ??? Fainting or loss of consciousness ??? Rapid heart rate ??? Chest pain ?? When to seek medical advice Call your healthcare provider right away if any of these occur: ??? Fever of 100.4??F (38??C) or higher, or as directed by your healthcare provider ??? Failure to resume normal bowel movements ??? Pain in your abdomen or back gets worse ??? Nausea or vomiting ??? Swelling in your abdomen ??? Small amount of blood in the stool ??? Black, tarry stool ??? Involuntary weight loss ??? Weakness ?? Last Reviewed Date: 2021 ?? [id number] [employer]. All rights reserved. This information is not intended as a substitute for professional medical care. Always follow your healthcare professional's instructions. ?? Patient Care team information Care Team Personnel Name: Morena Mcgraw RN Position: [facility] RN Member Role: Primary Care Nurse Name: Nat Joe RN Position: [facility] OB RN Member Role: Primary Care Nurse Name: Jo Lim RN Position: [facility] AMB Nurse Member Role: Primary Care Nurse Name: Not on Staff, PCP Position: [facility] Physician (General Medicine) Member Role: PCP Name: Carlos Moulton Position: [facility] Associate Professional Member Role: ED Physician Reaming Machine Operator For Plastic Address: Address: [address] [place] [address]- Name: Timothy Crocker Position: [facility] ED KHAI MARTE Name: Elena Hernandez RN Position: [facility] ED RN W/OE and Tasks Member Role: Patient Care Provider Name: Kathie Jade DO Position: [facility] ED Medicine MD Member Role: Admitting Physician Address: Address: [address] [place] [address]- Care Team Related Persons Name: GRADY BEARDEN Address: [address] [address] Name: NEENA COLE Address: [employer] Address: home [address] [place] [address] [place] Name: KELSEY GRADY Address: home [phone] [place] [address] Name: LEEANN SUTTON Address: home [address] [place] [address] Name: LUANNE SUTTON Address: home [address] [place] [address]
--- OUTSIDE RECORDS SUMMARY | 2024-03-23 07:53 | XMS_ITS | Continuity of Care Document ---
Author Organization [facility] Adult Address [address] [place] [address]- Care Team Providers Care Bumper Straightener Name Role Phone Adeola Cassidy NP Primary Care Physician [phone] [place] [facility] [place] 02/03/24 [facility] [address] [place] [address]- Attending Physician: Admtr, [id number] Admitting Physician: Admtr, [id number] Referring Physician: Admtr, [...] 1Result Comment: [facility] [id number] 2Admin Note: H1N1 Medications cloNIDine 0.1 mg oral tablet 0.1 mg, By Mouth, 4 times a day, # 56 tablet, Refills 0, Tot. Refills 0, Maintenance, 12/24/23 16:06:00 EDT, Route to Pharmacy Electronically, [facility]/pharmacy #[id number], Partial fill upon patient request [...] 12/24/23 16:37:00 EDT, Route to Pharmacy Electronically, [facility]/pharmacy #[id number], Partial fill upon patient request [...] 12/24/23 16:08:00 EDT, Route to Pharmacy Electronically, [facility]/pharmacy #[id number], Partial fill upon patientrequest if the prescription is for a schedule II op... Start Date: 12/24/23 Stop Date: 01/07/24 Status: Ordered SEROquel 300 mg oral tablet = 300 mg, By Mouth, Daily at bedtime, # 14 tablet, 0 Refills, Maintenance, 12/24/23 16:09:00 EDT, Tablet, [facility]/pharmacy #[id number], Partial fill upon patient request if the prescription is for a schedule II opioid drug., 155, cm, 12/24/23 9:58:00 EDT, Aleyda... Start Date: 12/24/23 Stop Date: 01/07/24 Status: Ordered traZODone 50 mg oral tablet 2 tablets, By Mouth, Daily at bedtime, # 28 tablet, Refills 0, Tot. Refills 0, Maintenance, 12/24/23 16:13:00 EDT, Route to Pharmacy Electronically, [facility]/pharmacy #[id number], Partial fill upon patient request if the [...] in household: Yes entered on: 12/14/23 Sex Laboratory * Event Display: Non Lab Results Authored Date: Patient Care team information Care Team Personnel Name: Tricia Elise RN Position: [facility] RN Member Role: Primary Care Nurse Name: Morena Mcgraw RN Position: [facility] RN Member Role: Primary Care Nurse Name: Nat Joe RN Position: [facility] OB RN Member Role: Primary Care Nurse Name: Jo Lim RN Position: [facility] AMB Nurse Member Role: Primary Care Nurse Name: Adeola Cassidy NP Position: [facility] PCO Associate Professional Member Role: PCP Address: Address: [address] [place] [address] [address] [place] [address]- [place] Name: Vivian Graham RN Position: S RN Member Role: Primary Care Nurse Name: Bharathi Robles RN Position: S RN Member Role: Primary Care Nurse Name: Katie Huggins RN Position: S RN Member Role: Primary Care Nurse Name: Olga Alas RN Position: S RN Member Role: Primary Care Nurse Care Team Related Persons Name: GRADY BEARDEN Address: home [address] [place], [place] Name: COLEENZOCASSYALICIA Address: AMERCN Address: home [address] [place] [address] Name: GRADY COLE Address: home [address] [place], [place] Name: LEEANN SUTTON Address: home [address] [place] [address] Name: LUANNE SUTTON Address: home [address] [place] [address]
--- OUTSIDE RECORDS SUMMARY | 2024-03-23 07:53 | XMS_ITS | Continuity of Care Document ---
Author Organization [facility] Adult Address [address] [place] [address]- Care Team Providers Care Aging Room Hand Name Role Phone Khanh CARMONA, Adeola Primary Care Physician Encounter [facility] Date(s): 12/13/23 - 01/12/24 [facility] Adult [address] [place] [address]- Allergies, Adverse Reactions, Alerts Substance Reaction Severity [...] Given 1Result Comment: [facility] [id number] 2Admin Note: H1N1 Medications cloNIDine 0.1 mg oral tablet 0.1 mg, By Mouth, 4 times a day, # 56 tablet, Refills 0, Tot. Refills 0, Maintenance, 12/24/23 16:06:00 EDT, Route to Pharmacy Electronically, [facility]/pharmacy #[id number], Partial fill upon patient request ifthe [...] 12/24/23 16:37:00 EDT, Route to Pharmacy Electronically, [facility]/pharmacy #[id number], Partial fill upon patient request if [...] 12/24/23 16:08:00 EDT, Route to Pharmacy Electronically, [facility]/pharmacy #[id number], Partial fill upon patientrequest if the prescription is for a schedule II op... Start Date: 12/24/23 Stop Date: 01/07/24 Status: Ordered SEROquel 300 mg oral tablet = 300 mg, By Mouth, Daily at bedtime, # 14 tablet, 0 Refills, Maintenance, 12/24/23 16:09:00 EDT, Tablet, [facility]/pharmacy #[id number], Partial fill upon patient request if [...] 12/24/23 16:13:00 EDT, Route to Pharmacy Electronically, [facility]/pharmacy #[id number], Partial fill upon patient request if the [...] Team Personnel Name: Tricia Elise RN Position: [facility] RN Member Role: Primary Care Nurse Name: Morena Mcgraw RN Position: [facility] RN Member Role: Primary Care Nurse Name: Nat Joe RN Position: [facility] OB RN Member Role: Primary Care Nurse Name: Jo Lim RN Position: [facility] AMB Nurse Member Role: Primary Care Nurse Name: Adeola Cassidy NP Position: [facility] PCO Associate Professional Member Role: PCP Address: Address: [address] [place] [address]- Name: Vivian Graham RN Position: [facility] RN Member Role: Primary Care Nurse Name: Bharathi Robles RN Position: [facility] RN Member Role: Primary Care Nurse Name: Katie Huggins RN Position: [facility] RN Member Role: Primary Care Nurse Name: Olga Alas RN Position: [facility] RN Member Role: Primary Care Nurse Care Team Related Persons Name: SULEIMAN GRADY Address: home [address] [place], [place] Name: COLENEENA Address: AMERCN Address: home [address] [place] [address] [place] Name: GRADY COLE Address: home [address] [place], [place] Name: LEEANN SUTTON Address: home [address] [address] Name: LUANNE SUTTON Address: home [address] [place] [address]
--- OUTSIDE RECORDS SUMMARY | 2024-03-23 07:53 | XMS_ITS | Continuity of Care Document ---
Author Organization [facility] ter Address [address] [place] [address]- Care Team Providers Care Kapok And Cotton Machine Operator Name Role Phone Adeola Cassidy NP Primary Care Physician Encounter [facility] Date(s): 11/23/23 - 12/23/[address] [address] Allergies, Adverse Reactions, Alerts Substance Reaction Severity [...] inactive(oldterm) 2 07/30/09 Given 1Result Comment: [facility] [id number] 2Admin Note: H1N1 Medications Ativan 0.5 mg oral tablet 1 tablet = 0.5 mg, By Mouth, 4 times a day, PRN as needed for anxiety, 0 Refills, Maintenance, 12/14/23 4:51:00 EDT, Partial fill upon patient request if the prescription is for a schedule II opioid drug. Start Date: 12/14/23 Status: Ordered cloNIDine 0.1 mg oral tablet 0.1 mg, By Mouth, 4 times a day, # 30 tablet, Refills 0, Maintenance, 12/05/23 17:24:00 EDT, Partial fill upon patient request if the prescription is for a schedule II opioid drug. Start Date: 12/05/23 Status: Ordered Colace sodium 100 mg oral [...] opioid drug. Start Date: 12/05/23 Status: Ordered Gas-X Extra Strength = 180 mg, By Mouth, 2 times a day, PRN Gas, 0 Refills, Maintenance, 12/14/23 5:15:00 EDT, Partial fill upon patient request if the prescription is for a schedule II opioid drug. Start Date: 12/14/23 Status: Ordered hydrOXYzine pamoate 50 mg oral capsule 1 capsule = 50 mg, By Mouth, 4 times a day, PRN for anxiety, # 40 capsule, 0 Refills, Maintenance, 12/05/23 17:23:00 EDT, Capsule, Partial fill upon patient request if the prescription is for a schedule II opioid drug. Start Date: 12/05/23 Status: Ordered levothyroxine 0.025 mg oral tablet = 50 mcg, By Mouth, Daily, # 30 tablet, 0 Refills, Maintenance, 12/09/23 12:48:00 EDT, Tablet, Partial fill upon patient request if the prescription is for a schedule II opioid drug. Start Date: 12/09/23 Status: Ordered Melatonin = 5 mg, By [...] opioid drug. Start Date: 12/14/23 Status: Ordered Nicoderm C-Q Clear 21 mg/24 [...] opioid drug. Start Date: 12/09/23 Status: Ordered senna 187 mg oral tablet 2 tablet = 17.2 mg, By Mouth, Daily at bedtime, Hold for diarrhea, # 28 tablet, 0 Refills, Maintenance, 12/18/23 9:42:00 EDT, Tablet, Partial fill upon patient request if the prescription is for a schedule II opioid drug. Start Date: 12/18/23 Stop Date: 01/01/24 Status: Ordered Seroquel 300 mg, By Mouth, [...] opioid drug. Start Date: 12/05/23 Status: Ordered thiamine 100 mg oral tablet [...] opioid drug. Start Date: 12/05/23 Status: Ordered Zoloft 50 mg oral tablet [...] Team Personnel Name: Tricia Elise RN Position: [facility] RN Member Role: Primary Care Nurse Name: Morena Mcgraw RN Position: [facility] RN Member Role: Primary Care Nurse Name: Nat Joe RN Position: [facility] OB RN Member Role: Primary Care Nurse Name: Jo Lim RN Position: [facility] AMB Nurse Member Role: Primary Care Nurse Name: Adeola Cassidy NP Position: [facility] PCO Associate Professional Member Role: PCP Address: Address: [address] [place] [address]- Name: Vivian Graham RN Position: [facility] RN Member Role: Primary Care Nurse Name: Bharathi Robles RN Position: S RN Member Role: Primary Care Nurse Name: Katie Huggins RN Position: [facility] RN Member Role: Primary Care Nurse Name: Olga Alas RN Position: [facility] RN Member Role: Primary Care Nurse Care Team Related Persons Name: SULEIMAN GRADY Address: home [address] [place], [place] Name: NEENA COLE Address: AMERCN Address: home [address] [place] [address] [place] Name: GRADY COLE Address: home [address] [place], [place] Name: LEEANN SUTTON Address: home [address] Name: LUANNE SUTTON Address: home [address] [place] [address]
--- OUTSIDE RECORDS SUMMARY | 2024-03-23 07:54 | XMS_ITS | Continuity of Care Document ---
Author Organization [facility] ter Address [address] [place] [address]- Care Team Providers Care Senior Sales Administrator Name Role Phone Adeola Cassidy NP Primary Care Physician [place] [facility] [place] 12/24/23 - 12/24/[address] [address]- Encounter Diagnosis Gastroenteritis(Final) - 12/24/23 Abdominal pain(Final) - 12/24/23 Elevated lipase(Final) - 12/24/23 Discharge Disposition: A-D/C Home Attending Physician: Kayla Gregory MD Admitting Physician: Kayla Gregory MD Referring Physician: Not on Staff, Referring [...] H1N1, inactive(oldterm) 2 07/30/09 Given 1Result Comment: [facility] [id number] 2Admin Note: H1N1 Medications Ativan 0.5 mg oral tablet 1 tablet = 0.5 mg, By Mouth, 4 times a day, PRN as needed for anxiety, for 14 days, # 56 tablet, 0 Refills, Acute 01/07/24 16:13:00 EDT, 12/24/23 16:13:00 EDT, Tablet, [facility]/pharmacy #[id number], Partial fill upon patient request if the prescription is for a... Start Date: 12/24/23 Stop Date: 01/07/24 Status: Ordered cloNIDine 0.1 mg oral tablet 0.1 mg, By Mouth, 4 times a day, # 56 tablet, Refills 0, Tot. Refills 0, Maintenance, 12/24/23 16:06:00 EDT, Route to Pharmacy Electronically, [facility]/pharmacy #[id number], Partial fill upon patient [...] 12/24/23 16:37:00 EDT, Route to Pharmacy Electronically, [id number], [...] 4 times a day, PRN for anxiety, for 14 days, # 56 capsule, 0 Refills, Acute 01/07/24 16:10:00 EDT, 12/24/23 16:10:00 EDT, Capsule, [facility]/pharmacy #[id number], Partial fill upon patient request if the prescription is for a schedule... Start Date: 12/24/23 Stop Date: 01/07/24 Status: Ordered levothyroxine 0.025 mg oral tablet [...] 0 Refills, Maintenance, 12/24/23 16:10:00 EDT, Tablet, [facility]/pharmacy #[id number], Partial fill upon patient [...] opioid drug. Start Date: 12/14/23 Status: Ordered MorPHINE Inj 4 mg, Injection, IV Push Slowly, Once, STAT, 12/24/23 11:04:00 EDT, Stop date 12/24/23 11:04:00 EDT Start Date: 12/24/23 Stop Date: 12/24/23 Status: Completed senna 187 mg oral tablet 2 tablet [...] 12/24/23 16:08:00 EDT, Route to Pharmacy Electronically, [facility]/pharmacy #[id number], Partial fill upon patientrequest if the prescription is for a schedule II op... Start Date: 12/24/23 Stop Date: 01/07/24 Status: Ordered SEROquel 300 mg oral tablet = 300 mg, By Mouth, Daily at bedtime, # 14 tablet, 0 Refills, Maintenance, 12/24/23 16:09:00 EDT, Tablet, [facility]/pharmacy #[id number], Partial fill upon patient [...] 12/24/23 16:13:00 EDT, Route to Pharmacy Electronically, [facility]/pharmacy #[id number], Partial fill upon patient request if the [...] Exam Date Time Procedure Performing Provider Status 12/24/23 10:[address] Abd/Pelvis W/ IV Contrast Only Nat Duran; Lynne (Verified) Notes: (CT Abd/Pelvis W/ IV Contrast Only) Reason For Exam: LLQ + RUQ abdominal pain, recent pseudoobstruction about a week ago;Other: RESULT: CT Abd/Pelvis W/ IV Contrast Only CT Chest W/ Contrast, CT Abd/Pelvis W/ IV Contrast Only INDICATION: Hx of Present Illness: LUQ abd pain radiating to flank. Diarrhea. Lightheaded and headache x2 days. Denies urinary sx.; Reason: Trauma; Fall against metal stairs 2 months prior with worsening upper abdominal chest pain; Clinical Question(s): Other:; Rib fracture TECHNIQUE: Helical CT scan of the chest, abdomen, and pelvis with IV contrast, formatted in 3 planes. 100 cc of Omnipaque 300 was administered intravenously. This study was performed without oral contrast. Weight-based protocol was performed using automatic exposure control. CTDIvol Body: 6.80 mGy, DLP Body: 489 mGy*cm. COMPARISON: None. FINDINGS: Electrician Apprentice view findings, lines and tubes: None. Trachea and airways: Patent without evidence of tracheal or endobronchial lesion. Lungs and pleura: Clear lungs. No effusion or pneumothorax. Mediastinum and kieran: No mass or hematoma. No mediastinal or hilar lymphadenopathy. No esophageal abnormality. Heart: Heart is normal in size. No pericardial effusion. Aorta: No aortic aneurysm. Pulmonary arteries: Normal caliber. No evidence of pulmonary embolism on this study performed without angiographic technique. Chest wall soft tissues: No acute abnormality. Diaphragm: Intact. Liver: Normal in attenuation and morphology. No suspicious lesion. Gallbladder: No CT evidence of gallbladder pathology. Bile ducts: No biliary ductal dilation. Spleen: Normal in size. Pancreas: No suspicious lesion or ductal dilatation. Adrenal glands: No nodule. Kidneys and ureters: No hydronephrosis, stone, or suspicious lesion. Bladder: No wall thickening or surrounding stranding. Reproductive organs: Unremarkable. Stomach, small bowel, and large bowel: There is a fluid-filled stomach, and small bowel extending into the colon. Appendix: No evidence of acute appendicitis. Peritoneum and retroperitoneum: No ascites or pneumoperitoneum. No omental or mesenteric lesions. Lymph nodes: No enlarged lymph nodes. Blood vessels: No vascular calcifications or aneurysm. No evidence of venous thrombosis. Dilated left gonadal veins. Abdominal and pelvic wall soft tissues: No acute abnormality. Bones: No acute abnormality. IMPRESSION: No acute cardiopulmonary process. No evidence of obstruction. Likely gastroenteritis. Left pelvic congestion syndrome in the right clinical setting. An actionable message ([place]) has been communicated via the [employer] system on 12/24/2023 10:56 AM, Message ID [id number]. WSN: [id number] Ordering Physician: Brandon Jones Dictated By: Bernardo Ortiz MD Dictated Date/Time: 12/24/23 10:56 a Reviewed By: Bernardo Ortiz MD Signed By: Bernardo Ortiz MD Signed Date/Time: 12/24/23 10:56 am Transcribed By: MIRANDA Transcribed Date/Time: 12/24/23 10:43 am * Exam Date Time Procedure Performing Provider Status 12/24/23 10:[address] Chest W/ Contrast Nat Duran; Auth (Verified) Notes: (CT Chest W/ Contrast) Reason For Exam: Fall against metal stairs 2 months prior with worsening upper abdominal/chest pain;Trauma RESULT: CT Chest W/ Contrast CT Chest W/ Contrast, CT Abd/Pelvis W/ IV Contrast Only INDICATION: Hx of Present Illness: LUQ abd pain radiating to flank. Diarrhea. Lightheaded and headache x2 days. Denies urinary sx.; Reason: Trauma; Fall against metal stairs 2 months prior with worsening upper abdominal chest pain; Clinical Question(s): Other:; Rib fracture TECHNIQUE: Helical CT scan of the chest, abdomen, and pelvis with IV contrast, formatted in 3 planes. 100 cc of Omnipaque 300 was administered intravenously. This study was performed without oral contrast. Weight-based protocol was performed using automatic exposure control. CTDIvol Body: 6.80 mGy, DLP Body: 489 mGy*cm. COMPARISON: None. FINDINGS: Electrician Apprentice view findings, lines and tubes: None. Trachea and airways: Patent without evidence of tracheal or endobronchial lesion. Lungs and pleura: Clear lungs. No effusion or pneumothorax. Mediastinum and kieran: No mass or hematoma. No mediastinal or hilar lymphadenopathy. No esophageal abnormality. Heart: Heart is normal in size. No pericardial effusion. Aorta: No aortic aneurysm. Pulmonary arteries: Normal caliber. No evidence of pulmonary embolism on this study performed without angiographic technique. Chest wall soft tissues: No acute abnormality. Diaphragm: Intact. Liver: Normal in attenuation and morphology. No suspicious lesion. Gallbladder: No CT evidence of gallbladder pathology. Bile ducts: No biliary ductal dilation. Spleen: Normal in size. Pancreas: No suspicious lesion or ductal dilatation. Adrenal glands: No nodule. Kidneys and ureters: No hydronephrosis, stone, or suspicious lesion. Bladder: No wall thickening or surrounding stranding. Reproductive organs: Unremarkable. Stomach, small bowel, and large bowel: There is a fluid-filled stomach, and small bowel extending into the colon. Appendix: No evidence of acute appendicitis. Peritoneum and retroperitoneum: No ascites or pneumoperitoneum. No omental or mesenteric lesions. Lymph nodes: No enlarged lymph nodes. Blood vessels: No vascular calcifications or aneurysm. No evidence of venous thrombosis. Dilated left gonadal veins. Abdominal and pelvic wall soft tissues: No acute abnormality. Bones: No acute abnormality. IMPRESSION: No acute cardiopulmonary process. No evidence of obstruction. Likely gastroenteritis. Left pelvic congestion syndrome in the right clinical setting. An actionable message ([place]) has been communicated via the [employer] system on 12/24/2023 10:56 AM, Message ID [id number]. WSN: [id number] Ordering Physician: Brandon Jones Dictated By: Bernardo Ortiz MD Dictated Date/Time: 12/24/23 10:56 a Reviewed By: Bernardo Ortiz MD Signed By: Bernardo Ortiz MD Signed Date/Time: 12/24/23 10:56 am Transcribed By: MIRANDA Transcribed Date/Time: 12/24/23 10:43 am Vital Signs Most recent to oldest [Reference Range]: 1 2 3 Height 155 cm (12/24/23 9:51 AM) Weight 61.5 kg (12/24/23 10:30 AM) 61.5 kg (12/24/23 9:51 AM) Oxygen Saturation [94-100 %] 100 % (12/24/23 3:57 PM) 100 % (12/24/23 12:48 PM) 100 % (12/24/23 10:30 AM) Pulse Rate [55-90 bpm] 76 bpm (12/24/23 3:57 PM) 78 bpm (12/24/23 12:48 PM) 86 bpm (12/24/23 10:30 AM) Blood Pressure [90-138/55-84 mm Hg] 152/98mm Hg *H* (12/24/23 3:57 PM) 138/105mm Hg (12/24/23 12:48 PM) 160/91mm Hg *H* (12/24/23 10:30 AM) Respiratory Rate [16-30 br/min] 16 br/min (12/24/23 3:57 PM) 12 br/min *L* (12/24/23 12:48 PM) 12 br/min *L* (12/24/23 11:59 AM) Temperature [96.8-100.4 DegF] 98.2 DegF (12/24/23 9:51 AM) Mode of Delivery (Oxygen) Room air (12/24/23 3:57 PM) Room air (12/24/23 12:48 PM) Room air (12/24/23 10:30 AM) Blood pressure sites Arm, left (12/24/23 3:57 PM) Arm, left (12/24/23 12:48 PM) Arm, left (12/24/23 10:30 AM) Temperature Route Oral (12/24/23 9:51 AM) Dry Weight 61.5 kg (12/24/23 9:51 AM) Social History Social History Type Response Smoking Status 5-9 cigarettes (betw een 1/4 to 1/2 pack)/day in last 30 days; Interested in cessation: No; Tobacco user in household: Yes entered on: 12/14/23 Sex EKG study * Event Display: ECG 12-Lead Authored Date: Please click on pdf link to open report * Event Display: ECG 12-Lead Authored Date: Ventricular Rate: 85 BPM Atrial Rate: 85 BPM P-R Interval: 126 ms QRS Duration: 82 ms Q-T Interval: 366 ms QTC Calculation(Bazett): 435 ms P Seadrift: 76 degrees R Seadrift: 73 degrees T Seadrift: 72 degrees Normal sinus rhythm Normal ECG When compared with ECG of 14-DEC-2023 00:37, No significant change was found Confirmed by Matisa Esteban ([id number]) on 12/24/2023 10:26:24 AM [place]: Matias Esteban * Event Display: EKG Authored Date: [id number] Patient Care team information Care Team Personnel Name: Tricia Elise RN Position: [facility] RN Member Role: Primary Care Nurse Name: Morena Mcgraw RN Position: [facility] RN Member Role: Primary Care Nurse Name: Nat Joe RN Position: [facility] OB RN Member Role: Primary Care Nurse Name: Jo Lim RN Position: [facility] AMB Nurse Member Role: Primary Care Nurse Name: Adeola Cassidy NP Position: [facility] PCO Associate Professional Member Role: PCP Address: Address: [address] [place] [address] [address] [place] [address]- Name: Vivian Graham RN Position: S RN Member Role: Primary Care Nurse Name: Bharathi Robles RN Position: S RN Member Role: Primary Care Nurse Name: Katie Huggins RN Position: S RN Member Role: Primary Care Nurse Name: Olga Alas RN Position: [facility] RN Member Role: Primary Care Nurse Care Team Related Persons Name: GRADY BEARDEN Address: home [address] [place] [address] Name: NEENA COLE Address: AMER[employer] Address: home [address] [place] [address] Name: GRADY COLE Address: home [address] [place], [place] Name: LEEANN SUTTON Address: home [address] [place] [address] Name: LUANNE SUTTON Address: home [address] [place] [address]
--- OUTSIDE RECORDS SUMMARY | 2024-03-23 07:54 | XMS_ITS | Continuity of Care Document ---
Author Organization [facility] Address [address] [place] [address]- Care Team Providers Care Automatic Hemmer Name Role Phone Khanh CARMONA, Adeola Primary Care Physician [phone] [place] [facility] [place] 12/18/[address] [address]- Discharge Disposition: A-D/C Home Attending Physician: Anthony Aguilar MD Admitting Physician: Anthony Aguilar MD Referring Physician: Not on Staff, Referring [...] inactive(oldterm) 2 07/30/09 Given 1Result Comment: [facility] [id number] 2Admin Note: H1N1 Medications Ativan 0.5 mg [...] recent to oldest [Reference Range]: 1 Height 154 cm (12/18/23 11:23 AM) Weight 71 kg (12/18/23 11:23 AM) Oxygen Saturation [94-100 %] 99 % (12/18/23 11:23 AM) Pulse Rate [55-90 bpm] 87 bpm (12/18/23 11:23 AM) Blood Pressure [90-138/55-84 mm Hg] 111/ 79mm Hg (12/18/23 11:23 AM) Respiratory Rate [16-30 br/min] 16 br/mi n (12/18/23 11:23 AM) Temperature [96.8-100.4 DegF] 97 DegF (12/18/23 11:23 AM) Mode of Delivery (Oxygen) Room air (12/18/23 11:23 AM) Temperature Route Temporal (12/18/23 11:23 AM) Dry Weight 71 kg (12/18/23 11:23 AM) Social History Social History Type Response [...] Associate Professional Member Role: PCP Address: Address: [address] [place] [address] [address]rd [place] [address]- Name: Vivian Graham RN Position: [facility] RN Member Role: Primary Care Nurse Name: Bharathi Robles RN Position: [facility] RN Member Role: Primary Care Nurse Name: Katie Huggins RN Position: S RN Member Role: Primary Care Nurse Name: Olga Alas RN Position: S RN Member Role: Primary Care Nurse Care Team Related Persons Name: GRADY BEARDEN Address: home [address] [place], [place] Name: COLE, BLESSING Address: AMERCN Address: home [address] [place] [address] Name: GRADY COLE Address: home [address] [place], [place] Name: LEEANN SUTTON Address: home [address] [address] Name: LUANNE SUTTON Address: home [address] [place] [address]
--- OUTSIDE RECORDS SUMMARY | 2024-03-23 07:54 | XMS_ITS | Continuity of Care Document ---
Author Organization [facility] Address [address] [place] [id number]- Care Team Providers Care Adjunct Psychology Professor Name Role Phone Adeola Cassidy NP Primary Care Physician Encounter [facility] [place] Date(s): 12/05/23 - 12/09/[address] [address]- Encounter Diagnosis Constipation(Final) - 12/05/23 Discharge Disposition: A-D/C Home Attending Physician: Travis Root MD Admitting Physician: Malachi CARMONA, Robbie Referring Physician: Malachi CARMONA, Robbie Allergies, Adverse Reactions, Alerts Substance Reaction Severity [...] 2 07/30/09 Given 1Result Comment: [facility] [id number] 2Admin Note: H1N1 Medications Ativan 1 mg [...] 0 Refills, Maintenance, 10/08/23 11:09:00 EST, Tablet, [facility], Partial fill upon patient request if [...] opioid drug. Start Date: 12/09/23 Status: Ordered MorPHINE Inj 4 mg, Injection, IV Push Slowly, Every 4 hours, PRN for Pain , Severe, Routine, 12/06/23 10:40:00 EDT Start Date: 12/06/23 Stop Date: 12/09/23 Status: Discontinued Nicoderm C-Q Clear 21 mg/24 hr transdermal [...] Exam Date Time Procedure Performing Provider Status 12/09/23 10:[address] Enterography Yamilex Rdz; Auth (Verified) Notes: (CT Enterography) Reason For Exam: Other:;Other: RESULT: CT Enterography CT Enterography INDICATION: Reason: Other:; Clinical Question(s): Obstruction, Obstruction TECHNIQUE: During uneventful administration of intravenous contrast, helical CT of the abdomen and pelvis was performed using the enterography protocol. Coronal and sagittal reformatted images generated. Oral Volumen contrast was administered. Weight-based protocol using automatic tube modulation was used to optimize exposure parameters. RADIATION DOSE PARAMETERS: CTDIvol Body: 8.60 mGy, DLP Body: 445 mGy*cm. COMPARISON: 12/05/2023 CT abdomen and pelvis. FINDINGS: Distention of small bowel loops is adequate. Stomach: The stomach is moderately distended with debris. No abnormal wall thickening or hyperenhancement. Small bowel: The small bowel is normal in caliber with no evidence of bowel obstruction. No bowel wall thickening or abnormal enhancement are seen. The terminal ileum is normal. Colon: The rectum is normal. The colon is normal. No abnormal colonic wall thickening or enhancement are seen. Rectum: The rectum is normal. . There is no evidence of bowel stricture, phlegmon or abscess. There is no pneumoperitoneum or ascites. There is no engorgement of the vasa recta. The celiac, superior mesenteric and inferior mesenteric arteries are patent without significant stenosis. Hepatic arterial anatomy is conventional. No SMV, splenic, portal or hepatic vein thrombus.. Lung Bases: Mild bibasilar atelectasis. No pleural effusion. Normal heart size. No pericardial effusion. Liver: Normal morphology. No focal masses. Gallbladder: Contracted. Bile ducts: No bile duct dilation. Spleen: The spleen is enlarged, measuring up to 14.5 cm, new from 08/2023 (previously measuring 12.1 cm). Heterogeneous enhancement of the spleen probably due to contrast timing, and similar to priorstudy on 09/11/2023. Pancreas: Normal. Adrenal Glands: Normal. Kidneys and Ureters: 0.2 cm calculus at the right kidney upper pole. No left calculi. No hydronephrosis. Lymph nodes: No pathologically enlarged lymph nodes. Mesentery:No ascites. No peritoneal nodularity. Vascular structures:Mild atherosclerotic disease involving the abdominal aorta. Dilated left ovarian vein. Dilated parametrial vasculature, left more so than right. Abdominal wall: Tiny fat-containing umbilical hernia. Pelvic Organs and Bladder: 2.6 and a simple cyst in the right ovary, physiologic.. Bones: No acute findings. IMPRESSION: 1. No evidence of small bowel inflammation, obstruction or mass. 2. No acute findings in the abdomen or pelvis. 3. Mild splenomegaly measuring up to 14.5 cm, new from 08/2023, uncertain etiology. 4. 0.2 cm nonobstructing calculus in the right kidney upper pole. 5. Dilated parametrial vessels, left more so than right is a nonspecific finding can be seen in asymptomatic patients, but can also be associated chronic pain in the setting of pelvic venous congestion syndrome. WSN: [id number] Ordering Physician: Christian Landry Dictated By: Juan Valladares MD Dictated Date/Time: 12/09/23 11:56 a Reviewed By: Juan Valladares MD Signed By: Juan Valladares MD Signed Date/Time: 12/09/23 11:56 am Transcribed By: MIRANDA Transcribed Date/Time: 12/09/23 11:48 am * Exam Date Time Procedure Performing Provider Status 12/07/23 9:58 AM Abdomen Comp Inc Dec ub and/or Erect Violet Escalona; Auth (Verified) Notes: (Abdomen Comp Inc Decub and/or Erect) Reason For Exam: pseudo obstruction. ABD distension;Distention RESULT: Abdomen Comp Inc Decub and/or Erect Abdomen Comp Inc Decub and/or Erect 2 view INDICATION/CLINICAL QUESTION: Reason: Distention; pseudo obstruction. ABD distension; Clinical Question(s): Obstruction COMPARISON: December 06, 2023 FINDINGS: Mild gaseous distention of colon. Minimal small bowel gas markings without overt obstruction. No pneumoperitoneum or acute osseous finding. Suspected mild hepatosplenomegaly. IMPRESSION: 1. Nonspecific not overtly obstructed bowel gas pattern. 2. Probable hepatosplenomegaly. WSN: [id number] Ordering Physician: Christian Landry Dictated By: Bishop Rodriguez MD Dictated Date/Time: 12/07/23 2:09 pm Reviewed By: Bishop Rodriguez MD Signed By: Bishop Rodriguez MD Signed Date/Time: 12/07/23 2:09 pm Transcribed By: MIRANDA Transcribed Date/Time: 12/07/23 2:06 pm * Exam Date Time Procedure Performing Provider Status 12/06/23 4:52 PM Abdomen Comp Inc Dec ub and/or Erect Trina Palma; Auth (Verified) Notes: (Abdomen Comp Inc Decub and/or Erect) Reason For Exam: Pain RESULT: Abdomen Comp Inc Decub and/or Erect Abdomen series AP supine and upright INDICATION/CLINICAL QUESTION: Abdominal pain COMPARISON: 08/20/2019 CT scan yesterday FINDINGS: Normal bowel gas pattern. No evidence of obstruction. No evidence of pneumoperitoneum. Unchanged venous calcifications in the pelvis. Normal bones. Clear lung bases. IMPRESSION: Normal. WSN: [id number] Ordering Physician: Israel Low Dictated By: Josué Bundy MD Dictated Date/Time: 12/06/23 5:13 pm Reviewed By: Josué Bundy MD Signed By: Josué Bundy MD Signed Date/Time: 12/06/23 5:13 pm Transcribed By: MIRANDA Transcribed Date/Time: 12/06/23 5:09 pm * Exam Date Time Procedure Performing Provider Status 12/05/23 3:[address] Abd/Pelvis W/ IV Contrast Only Audrey Jarquin; Auth (Verified) Notes: (CT Abd/Pelvis W/ IV Contrast Only) Reason For Exam: Abdominal pain, bloating;Other: RESULT: CT Abd/Pelvis W/ IV Contrast Only CT Abd/Pelvis W/ IV Contrast Only Hx of Present Illness: Pt presents from detox with increasing abd pain and SOB. Abd is distended and round. Pt states that PO intake is decreased. BM is soft but painful.; Reason: Other:; Abdominal pain, bloating; Clinical Question(s): Other:; ascites, colitis, pancreatitis; Order Comment: Patient unable to tolerate PO contrast. TECHNIQUE: Spiral CT through the abdomen and pelvis with IV contrast formatted in 3 planes. 75 cc of Omnipaque 300 was administered intravenously. This study was performed without oral contrast. Weight-based protocol using automatic tube modulation was used to optimize exposure parameters. CTDIvol Body: 8.85 mGy, DLP Body: 424 mGy*cm. COMPARISON: 09/11/2023 FINDINGS: The heart is normal in size. There is no pericardial effusion. The visualized lung bases are unremarkable. The liver, gallbladder, spleen, pancreas, and adrenal glands are unremarkable. Symmetric renal contrast enhancement is noted bilaterally. There is a 0.4 cm nonobstructing right interpolar region calculus. No right or left renal cysts or masses are present. There is no hydronephrosis. The bladder is distended and unremarkable. The uterus and adnexal structures are unremarkable. The small bowel is fluid distended without wall thickening or mesenteric stranding. There is no transition point. The appendix is unremarkable. The colon is distended with air without wall thickening. Minimal stool is noted within the colon. There is no obstruction. There is no free air, free fluid, or lymphadenopathy. The osseous structures are unremarkable. IMPRESSION: Distended small bowel and colon without transition point. This could represent an adynamic ileus. There is no obstruction. WSN: [id number] Ordering Physician: Misa Benito Dictated By: Mary Jane Manrique MD Dictated Date/Time: 12/05/23 3:32 pm Reviewed By: Mary Jane Manrique MD Signed By: Mary Jane Manrique MD Signed Date/Time: 12/05/23 3:32 pm Transcribed By: MIRANDA Transcribed Date/Time: 12/05/23 3:30 pm Vital Signs Most recent to oldest [Reference Range]: 1 2 3 Height 155 cm (12/09/23 11:20 AM) 155 cm (12/09/23 7:20 AM) 155 cm (12/08/23 11:30 PM) Weight 64.4 kg (12/08/23 1:49 PM) 64.4 kg (12/05/23 5:06 PM) 64.54 kg (12/05/23 3:24 PM) Oxygen Saturation [94-100 %] 97 % (12/09/23 11:20 AM) 97 % (12/09/23 7:20 AM) 96 % (12/08/23 11:30 PM) Pulse Rate [55-90 bpm] 91 bpm *H* (12/09/23 11:20 AM) 87 bpm (12/09/23 7:20 AM) 103 bpm *H* (12/08/23 11:30 PM) Body Mass Index [18.5-24.99 kg/m2] 26.81 kg/m2 *H* (12/08/23 1:49 PM) 26.81 kg/m2 *H* (12/05/23 5:06 PM) 26.86 kg/m2 *H* (12/05/23 3:24 PM) Blood Pressure [90-138/55-84 mm Hg] 125/82mm Hg (12/09/23 11:20 AM) 109/78mm Hg (12/09/23 7:20 AM) 130/79mm Hg (12/08/23 11:30 PM) Respiratory Rate [16-30 br/min] 18 br/min (12/09/23 11:20 AM) 18 br/min (12/09/23 7:20 AM) 18 br/min (12/09/23 3:09 AM) Temperature [96.8-100.4 DegF] 98.3 DegF (12/09/23 11:20 AM) 98.3 DegF (12/09/23 7:20 AM) 97.5 DegF (12/08/23 11:30 PM) Liters per Minute 0 L/min (12/08/23 7:12 PM) Mode of Delivery (Oxygen) Room air (12/09/23 11:20 AM) Room air (12/09/23 7:20 AM) Room air (12/08/23 11:30 PM) Blood pressure sites Arm, right (12/09/23 11:20 AM) Arm, right (12/09/23 7:20 AM) Arm, right (12/08/23 11:30 PM) Temperature Route Oral (12/09/23 11:20 AM) Oral (12/09/23 7:20 AM) Oral (12/08/23 11:30 PM) Dry Weight 50 kg (12/05/23 5:06 PM) 50 kg (12/05/23 3:24 PM) 50 kg (12/05/23 1:04 PM) Weight Obtained Via Patient/family state d (12/05/23 1:00 PM) Social History Social History Type Response Smoking Status 5-9 cigarettes (betw een 1/4 to 1/2 pack)/day in last 30 days; Interested in cessation: No entered on: 08/10/22 Sex History and physical note * Malachi CARMONA, Robbie: PERFORM, MODIFY Event Display: History and Physical Hospital Authored Date: [id number] Patient: ??LASHANDA RICHTER ? Age:??43 Years?Sex:??Female?:??1980?? Chief Complaint/Reason for Consultation Abd pain History of Present Illness This is a 43-year-old female with past medical history of alcohol abuse, cocaine abuse, benzodiazepine abuse, opiate abuse, depression, anxiety, PTSD, GERD who presents to the emergency department with abdominal pain.?Patient states that she been having abdominal discomfort for several weeks with increasing??distention, bloating when??discomfort throughout her entire abdomen.?? States she has been only having small??bowel movements but has not had significant decrease in her appetite.?? States she has gained??32 pounds over the past 3 weeks??although this does not appear to line up with her ??weights in our??own charting system.?? Has been taking MiraLAX 2 times a day??without significant??effect. In the ED CT abdomen pelvis shows distended small bowel and colon without transition point possiblyrepresents an adynamic ileus.?? No obstruction noted.?? Labs show no leukocytosis, undetectable, UA grossly unremarkable.?? Afebrile saturating 98% on room air with stable blood pressures and pulse. On exam patient is resting comfortably in her bed.?? Heart is regular rate and rhythm.?? Lungs are clear to auscultation bilaterally.?? Abdomen is soft, distended, tender with palpation throughout the entire abdomen with no focal point.?? No peripheral edema.?? She denies fever, chest pain, cough, dyspnea, nausea, vomiting, diarrhea, dysuria. Review of Systems General: Good appetite. Denies fever, chills, sweats. Skin: Denies new rash, sores, lumps. HEENT: Denies vision changes, dizziness, headache, cold symptoms. Cardiac: Denies chest pain?? Vascular: Denies edema Pulmonary: Denies SOB, cough, wheeze. GI: Abd pain.??Denies??nausea, vomiting, diarrhea, constipation. : Denies dysuria Neurological: Denies weakness, dizziness, syncope. Psych: Appropriate affect and mood. Engages appropriately. All other systems reviewed and negative except as noted in HPI?? Objective Vital Signs?? Temperature: 97.6 DegF (12/05/23 17:06:00) Temperature Route: Oral (12/05/23 17:06:00) Pulse Rate: 73 bpm (12/05/23 17:06:00) Respiratory Rate: 16 br/min (12/05/23 17:06:00) Systolic Blood Pressure: 107 mm Hg (12/05/23 17:06:00) Diastolic Blood Pressure: 66 mm Hg (12/05/23 17:06:00) Blood pressure sites: Arm, left (12/05/23 17:06:00) Mean Arterial Pressure: 80 mm Hg (12/05/23 17:06:00) Pulse Pressure: 41 mm Hg (12/05/23 17:06:00) Oxygen Saturation: 98 % (12/05/23 17:06:00) Mode of Delivery (Oxygen): Room air (12/05/23 17:06:00) Early Warning Score: 2 (12/05/23 17:09:41) ? Physical Exam General: Lying comfortably in bed. HEENT: Atraumatic, normocephalic. PERRL, EOM grossly intact, nonicteric.?? Neck: Supple, trachea midline.?? Cardiovascular: S1, S2, no MRG. No edema. Pulmonary: CTAB, no wheeze, no accessory muscle use. Abdomen: Distended, diffuse discomfort,??Soft, , +BS, no rebound tenderness. Extremities: Moves all extremities.?? Skin: Warm, dry, intact, no rash. Neurological: A&O x3, CN grossly intact. Psychological: Appropriate mood and affect. Assessment/Plan Diagnoses Constipation ??(K59.00) Ileus ??(K56.7) ?? Assessment:??43-year-old female with past medical history of alcohol abuse, cocaine abuse, benzodiazepine abuse, opiate abuse, depression, anxiety, PTSD, GERD who presents to the emergency departmentwith abdominal pain. ?? Ileus (K56.7):? Presents with??several weeks of abdominal discomfort, pain, bloating and distention??with??decreased bowel output. States she has been eating normally for the most part up until few days ago and thenhas since had??diminished appetite. No nausea or vomiting.??Has been taking??MiraLAX 2 times daily??to try to move her bowels.??Was given??GoLytely and??enema in the ED with??small results.??States that she is not taking any opiates. CT abdomen pelvis shows distended small bowel and colon without transition point possibly an adynamic ileus without obstruction Labs are grossly unremarkable Afebrile saturating 98% on room air with stable blood pressures and pulse Plan Continue GoLytely Tylenol, ibuprofen as needed. Avoid opiates Consider surgical consult in the a.m. if no improvement ?? Detox Patient is at [facility] on??[address]. ? Chronic stable conditions Psych???continue clonidine, doxazosin, hydroxyzine, clonazepam ?? VTE Prophylaxis:??Patient fully ambulatory ?? Code Status:??Full code Histories Allergies Allergies ?(Active and Proposed Allergies Only) Mold? (Severity: Mild, Onset: Unknown) ?Reactions: HEADACHE, BREATHING ISSUES ? Past Medical History/Problem List Active Problems??(26) Anxiety Benzodiazepine abuse Bipolar affective Cervix, short [...] (post-traumatic stress disorder) Screening for breast cancer Sinus pain Subclinical hypothyroidism ? Past Surgical History Open treatment of acute or chronic elbow dislocation: 02/03/23 Endoscopic esophageal dilator: 2016 Dilation and curettage: 2009 Carpal tunnel: 1996 [place] Teeth extraction ? Social History Alcohol Details:??Use: [...] Medications Clonazepam (KlonoPIN 1 mg oral tablet)?1?tab(s)?1?Milligram?By Mouth?Daily?for14?Days Clonidine (cloNIDine 0.1 mg oral tablet)?0.1?Milligram?By Mouth?4 times a day Doxazosin (doxazosin 2 mg oral tablet)?2?Milligram?1?tablet?By Mouth?2 times a day HydrOXYzine (hydrOXYzine pamoate 50 mg oral capsule)?1?capsule?50?Milligram?By Mouth?4 times a day?as needed?for anxiety Loratadine (loratadine 10 mg oral tablet)?10?Milligram?1?tablet?By Mouth?Daily?for 7?Days Lorazepam (Ativan 1 mg oral tablet)?1?tab(s)?1?Milligram?By Mouth?4 times a day?as needed?for anxiety Olanzapine (olanzapine 2.5 mg oral tablet)?2.5?Milligram?1?tablet?TAKE 1 TABLET BY MOUTH TWICE A DAY NEEDED Quetiapine (Seroquel)?300?Milligram?By Mouth?Daily at bedtime Quetiapine (SEROquel 100 mg oral tablet)?100?Milligram?1?tablet?By Mouth?3 times a day ? Results Recent Labs BLOOD COUNT & DIFF WBC 6.0 k/mm3 ()?? 12/05/2023 14:10 RBC 3.87 m/mm3 (Low)?? 12/05/2023 14:10 Hgb 11.4 Gm/dL (Low)?? 12/05/2023 14:10 Hct 34.4 % (Low)?? 12/05/2023 14:10 MCV 88.9 femtoliters ()?? 12/05/2023 14:10 MCH 29.5 pg ()?? 12/05/2023 14:10 MCHC 33.1 g/dL ()?? 12/05/2023 14:10 Platelet Count 154 k/mm3 ()?? 12/05/2023 14:10 RDW-SD 46.5 femtoliters ()?? 12/05/2023 14:10 MPV 12.1 femtoliters ()?? 12/05/2023 14:10 Nucleated RBC (Automated) 0.0 #/100 WBC'S ()?? 12/05/2023 14:10 Abs. NRBC 0.0 k/mm3 ()?? 12/05/2023 14:10 Abs. Neut 3.3 k/mm3 ()?? 12/05/2023 14:10 Abs. Lymph 2.0 k/mm3 ()?? 12/05/2023 14:10 Abs. Benton 0.5 k/mm3 ()?? 12/05/2023 14:10 Abs. Eo 0.2 k/mm3 ()?? 12/05/2023 14:10 Abs. Baso 0.0 k/mm3 ()?? 12/05/2023 14:10 Neut % 54.7 % ()?? 12/05/2023 14:10 Lymph % 32.6 % ()?? 12/05/2023 14:10 Benton % 9.0 % ()?? 12/05/2023 14:10 Eos % 3.2 % ()?? 12/05/2023 14:10 Baso % 0.2 % ()?? 12/05/2023 14:10 Imm Gran 0.3 % ()?? 12/05/2023 14:10 Abs. Imm Gran 0.0 k/mm3 ()?? 12/05/2023 14:10 ?? CHEM GENERAL Sodium 137 mmol/L ()?? 12/05/2023 14:10 Potassium 4.3 mmol/L ()?? 12/05/2023 14:10 Chloride 105 mmol/L ()?? 12/05/2023 14:10 Bicarbonate Level 23 mmol/L ()?? 12/05/2023 14:10 Anion Gap 9 ()?? 12/05/2023 14:10 Glucose Level 95 mg/dL ()?? 12/05/2023 14:10 BUN 13 mg/dL ()?? 12/05/2023 14:10 Creatinine-Blood 0.6 mg/dL ()?? 12/05/2023 14:10 Estimated GFR Creatinine 112 ML/MIN/1.73 M2 ()?? 12/05/2023 14:10 Calcium 7.8 mg/dL (Low)?? 12/05/2023 14:10 Protein, Total 5.5 Gm/dL (Low)?? 12/05/2023 14:10 Albumin 3.7 Gm/dL ()?? 12/05/2023 14:10 AG Ratio 2.1 ()?? 12/05/2023 14:10 Alkaline Phosphatase 62 units/L ()?? 12/05/2023 14:10 Lipase 15 units/L ()?? 12/05/2023 14:10 AST (SGOT) 25 units/L ()?? 12/05/2023 14:10 ALT (SGPT) 111 units/L (High)?? 12/05/2023 14:10 Bilirubin, Total 0.2 mg/dL ()?? 12/05/2023 14:10 Lactate 1.3 mmol/L ()?? 12/05/2023 14:10 ?? COAG INR 1.0 ()?? 12/05/2023 14:10 Protime (PT) 10.3 seconds ()?? 12/05/2023 14:10 ?? ENDOCRINE/TUMOR MARKER Blood <1 mIU/mL ()?? 12/05/2023 14:10 ?? UA/URINALYSIS Appear/Color, Urine COLORLESS ()?? 12/05/2023 13:31 Clarity CLEAR (N)?? 12/05/2023 13:[address], Urine <1.005 ()?? 12/05/2023 13:31 pH, Urine 7.0 ()?? 12/05/2023 13:31 Albumin, Urine NEGATIVE (N)?? 12/05/2023 13:31 Glucose, Urine NEGATIVE (N)?? 12/05/2023 13:31 Ketones, Urine NEGATIVE (N)?? 12/05/2023 13:31 Bilirubin, Urine NEGATIVE (N)?? 12/05/2023 13:31 Hemoglobin, Urine NEGATIVE (N)?? 12/05/2023 13:31 Nitrite, Urine NEGATIVE (N)?? 12/05/2023 13:31 Leukocyte, Urine NEGATIVE (N)?? 12/05/2023 13:31 Urobilinogen NORMAL mg/dL (N)?? 12/05/2023 13:31 Hold Urine Culture Testing available 48 hours from time of collection. ()?? 12/05/2023 13:31 ?? URINE OTHER Est Creatinine Clearance 92.27 mL/min ()?? 12/05/2023 14:41 ? Imaging(s) ?CT Abd/Pelvis W/ IV Contrast Only ?? 12/05/2023 15:01??by Mary Jane Manrique MD ?IMPRESSION: ?? Distended small bowel and colon without transition point. This could represent an adynamic ileus. There is no obstruction. ? Hospital Progress note * Gosia VALERIO, Tricia: PERFORM, SIGN, VERIFY Event Display: Progress Note Hospital Authored Date: [id number] Patient: LASHANDA RICHTER Age: 43 years Sex: Female : 1980 Associated Diagnoses: None Author: Tricia Elise RN Findings Problem Related to Alteration in Gastrointestinal : Alteration in Gastrointestinal Func/new 12/09/2023 13:00 EDT Alteration in GI status Related to Other: ileus/constipation Goals & Outcomes, Gastrointestinal Establish a regular pattern of elimination for pt, Resolved problem, Goals/Outcomes met Interventions, Gastrointestinal Resolved problem, Interventions no longer in effect BH Goals/Interventions, Gastrointestinal Yes Gastrointestinal, Problem Start 12/05/2023 19:25 Reviewed plan with, Gastrointestinal Patient Patient Progression, Gastrointestinal Resolved problem Gastrointestinal, Problem Resolved 12/09/2023 13:28 . Nursing Data Vital Signs : VITAL SIGNS SECTION 12/09/2023 11:20 EDT Temperature 98.3 DegF Temperature Route Oral Pulse Rate 91 bpm H Respiratory Rate 18 br/min Systolic Blood Pressure 125 mm Hg Diastolic Blood Pressure 82 mm Hg Blood pressure sites Arm, right Mean Arterial Pressure 96 mm Hg Pulse Pressure 43 mm Hg Oxygen Saturation 97 % Mode of Delivery (Oxygen) Room air 12/09/2023 7:20 EDT Temperature 98.3 DegF Temperature Route Oral Pulse Rate 87 bpm Respiratory Rate 18 br/min Systolic Blood Pressure 109 mm Hg Diastolic Blood Pressure 78 mm Hg Blood pressure sites Arm, right Mean Arterial Pressure 88 mm Hg Pulse Pressure 31 mm Hg Oxygen Saturation 97 % Mode of Delivery (Oxygen) Room air . Narrative/Incidental pt is a+ o x3, vss, afebrile. pt appears in no acute distress, pt approached this brief writer during report, requesting pain medications for pain, 10/ to abdomen, prns given with little effect, hot packprovided for comfort with minimal effect. pt continues on regular diet, tolerating well, no nausea,no vomiting. pt denies sob. CT completed this AM, per WNL, pt discharging back to detox facility. production planner scheduler completed discharge paperwork, nurse-nurse completed via phone with IMAN Mena. pt discharge with staff, [facility] from [facility], staff sent with patient belongings, including cigarettes, load haul dump operator and d/c instructions and scripts. . Discharge Information Case Management Discharge Plan : Case Management Discharge Plan Data 12/09/2023 14:30 EDT Discharge Level of Care at Discharge Inpatient Rehab Facility/Unit * Naomy Garcia: SIGN, PERFORM, VERIFY Event Display: Progress Note Hospital Authored Date: Patient: LASHANDA RICHTER Age: 43 years Sex: Female : 1980 Associated Diagnoses: None Author: Naomy Garcia Findings Problem Related to Alteration in Gastrointestinal : Alteration in Gastrointestinal Func/new 12/09/2023 2:00 EDT Alteration in GI status Related to Other: ileus/constipation Goals & Outcomes, Gastrointestinal Establish a regular pattern of elimination for pt, Pt will have a bowel movement prior to discharge, Pt will maintain adequate GI function appropriate for pt, Pt will maintain normal elimination patterns, Pt will tolerate age appropriate diet prior to discharge Interventions, Gastrointestinal Assess/monitor abdomen for distention, tenderness, Assess/monitor abdominal girth & bowel function, Assess/monitor bowel pattern, bowel sounds, flatus, Assess/monitor number of bowel movements, Assess/monitor color, quantity, quality, consistency of stoo, Assess/monitor pt for nausea, vomiting, Assess if pt tolerating diet BH Goals/Interventions, Gastrointestinal Yes Gastrointestinal, Problem Start 12/05/2023 19:25 Reviewed plan with, Gastrointestinal Patient Patient Progression, Gastrointestinal Pt progressing according to plan . Nursing Data Cardiac Data. : Cardiac Data. 12/09/2023 0:00 EDT Cardiovascular WNL . Gastrointestinal Data. : Gastrointestinal Data. 12/09/2023 0:00 EDT Gastrointestinal Symptoms Constipation Abdomen Tender, Distended, Round, Semi-firm LUQ Tenderness At rest, To palpation RUQ Tenderness At rest, To palpation Bowel Sounds LUQ Hypoactive Bowel Sounds RUQ Hypoactive Bowel Sounds LLQ Present Bowel Sounds RLQ Present GI WNL except . Genitourinary Data. : Genitourinary Data. 12/09/2023 0:00 EDT WNL . HEENT Data. : HEENT Assessment 12/09/2023 0:00 EDT HEENT, Adult WNL . Integumentary Data. : Integumentary Data. 12/09/2023 0:00 EDT Activity Walks frequently Mobility No limitations Integumentary WNL . IV Lines. : IV Lines. 12/09/2023 2:18 EDT Right Forearm 20 gauge Peripheral IV Activity: Assess Peripheral IV Assess Compare Touch: A/C/T Done, no complications Peripheral IV Site Assessment: Clean, dry and intact Peripheral IV Site Drainage: None Peripheral IV Dressing: Clean, dry and intact . Musculoskeletal Data. : Musculoskeletal Data. 12/09/2023 0:00 EDT Musculoskeletal Symptoms None Musculoskeletal WNL except . Neurological Data. : Neurological Data. 12/09/2023 0:00 EDT 1 - 10 Pain Scale Score 5 Neuro WNL 12/08/2023 21:27 EDT Pain Intensity 5 12/08/2023 20:57 EDT Pain Intensity 8 . Respiratory/Pulmonary Data. : Respiratory/Pulmonary Data. 12/09/2023 2:23 EDT Respiratory Treatment(s) Cough and deep breathe 12/09/2023 0:00 EDT Respiratory WNL 12/08/2023 23:30 EDT Mode of Delivery (Oxygen) Room air 12/08/2023 19:12 EDT Mode of Delivery (Oxygen) Room air . Vital Signs : VITAL SIGNS SECTION 12/08/2023 23:30 EDT Temperature 97.5 DegF Temperature Route Oral Pulse Rate 103 bpm H Respiratory Rate 16 br/min Systolic Blood Pressure 130 mm Hg Diastolic Blood Pressure 79 mm Hg Blood pressure sites Arm, right Mean Arterial Pressure 96 mm Hg Pulse Pressure 51 mm Hg Oxygen Saturation 96 % Mode of Delivery (Oxygen) Room air 12/08/2023 20:52 EDT Systolic Blood Pressure 137 mm Hg Diastolic Blood Pressure 76 mm Hg 12/08/2023 19:12 EDT Temperature 98 DegF Temperature Route Oral Pulse Rate 110 bpm H Respiratory Rate 14 br/min L Systolic Blood Pressure 140 mm Hg H Diastolic Blood Pressure 87 mm Hg H Blood pressure sites Arm, left Mean Arterial Pressure 105 mm Hg Pulse Pressure 53 mm Hg Oxygen Saturation 98 % Liters per Minute 0 L/min Mode of Delivery (Oxygen) Room air . Pain Data : PAIN SECTION 12/09/2023 0:00 EDT 1 - 10 Pain Scale Score 5 12/08/2023 21:27 EDT Pain Intensity 5 12/08/2023 20:57 EDT Pain Intensity 8 . Narrative/Incidental assumed care for this patient at 1900 axox4. Received a male visitor this evening whom patient identifies as spouse. Adbomen distended and tender to palpation - morphine provided with positive effectto relieve pain. Patient has been independenlty ambulating on the unit in and out of her room with requests for jellos, crackers, sodas, and turkey sandwiches - provided within available means. Tolerating PO diet reporting no pain/nausea. Awaits CT scan in the morning. Self occupies with art work and television. Fall and safety precautions implemented throughout the shift. Refer to biophysical assessment above. . * Rolan VALERIO, Char Frias: PERFORM, SIGN, VERIFY Event Display: Progress Note Hospital Authored Date: [id number] Patient: LASHANDA RICHTER Age: 43 years Sex: Female : 1980 Associated Diagnoses: None Author: Rolan VALERIO, Char Frias Findings Problem Related to Alteration in Gastrointestinal : Alteration in Gastrointestinal Func/new 12/08/2023 12:00 EDT Alteration in GI status Related to Other: ileus/constipation Goals & Outcomes, Gastrointestinal Establish a regular pattern of elimination for pt, Pt will have a bowel movement prior to discharge, Pt will maintain adequate GI function appropriate for pt, Pt will maintain normal elimination patterns, Pt will tolerate age appropriate diet prior to discharge Interventions, Gastrointestinal Assess/monitor abdomen for distention, tenderness, Assess/monitor abdominal girth & bowel function, Assess/monitor bowel pattern, bowel sounds, flatus, Assess/monitor number of bowel movements, Assess/monitor color, quantity, quality, consistency of stoo, Assess/monitor pt for nausea, vomiting, Assess/monitor intake & output, Assess if pt tolerating diet BH Goals/Interventions, Gastrointestinal Yes Gastrointestinal, Problem Start 12/05/2023 19:25 Reviewed plan with, Gastrointestinal Patient Patient Progression, Gastrointestinal Pt progressing according to plan . Nursing Data Vital Signs : VITAL SIGNS SECTION 12/08/2023 13:49 EDT Temperature 98.4 DegF Temperature Route Temporal Pulse Rate 78 bpm Respiratory Rate 17 br/min Systolic Blood Pressure 135 mm Hg Diastolic Blood Pressure 86 mm Hg H Blood pressure sites Arm, left Mean Arterial Pressure 102 mm Hg Oxygen Saturation 100 % Mode of Delivery (Oxygen) Room air 12/08/2023 11:15 EDT Temperature 98 DegF Temperature Route Oral Pulse Rate 69 bpm Respiratory Rate 16 br/min Systolic Blood Pressure 125 mm Hg Diastolic Blood Pressure 88 mm Hg H Blood pressure sites Arm, right Mean Arterial Pressure 100 mm Hg Pulse Pressure 37 mm Hg Oxygen Saturation 100 % Mode of Delivery (Oxygen) Room air 12/08/2023 7:13 EDT Temperature 97.7 DegF Temperature Route Oral Pulse Rate 67 bpm Respiratory Rate 16 br/min Systolic Blood Pressure 114 mm Hg Diastolic Blood Pressure 73 mm Hg Blood pressure sites Arm, right Mean Arterial Pressure 87 mm Hg Pulse Pressure 41 mm Hg Oxygen Saturation 99 % Mode of Delivery (Oxygen) Room air . Narrative/Incidental Assumed care of Pt around 07:00 from Michelle VALERIO. Pt A&Ox4 and can be extremely anxious at times during shift. Pt reports 10/10 ABD pain during shift, PRN morphine administered with good but not long lasting effects. The plan for this pt was to have a colonoscopy. Pt had done the procedure prep prior to this shift and was NPO after midnight. Pt became very anxious prior to going to procedure, ordered IV ativan which was administered with good effects. The colonoscopy was unsuccessful due to the fact that her bowels had not been completely flushed out. In report from the endo team it was stated that the pt would need to have a CT of the small bowel and a repeat colonoscopy when the pt turns 46 yo. Shortly after the pt arrived back to unit the pt [facility] dressed in different clothing. This nurse followed the pt off the unit to spoke 5 and asked the pt where she was going. The pt stated she was going to smoke a cigarette and wouldreturn to the unit after. This nurse informed the pt that she could not leave the building, Pt stated what are you going to do about it . This nurse stated that a code green would need to be called if she did not return to the unit. Pt walked away, this nurse called for help and asked for someone to call the code. Staff member followed pt off the unit and out the main entrance. This nurse followed shortly behind and pt was agreeable to come back to the unit on her own free will. After pt was settled back in her room this nurse went to pass medications to another pt. This nurse returned to the pt's room to make her aware that a provider would need to come see her after she left the unit andthe pt was not in her room. Pt was found on the sunroom by the charging station and the pt quickly placed something wrapped in tissue into the charging station. This nurse walked the pt back to her room again and then went back to investigate what the pt left behind. There was a marijuana vaporizerthat the pt had placed on the atv mechanic. It was removed and placed in a bag with a pt label on it in the med room. The pt was made aware that she would not be able to get this back until she was DC'd an d she was fine with that. Report given to Naomy VALERIO around 1899. Safety maintained, call fox within reach, and frequent rounding during shift.. Consult note * Devante CRANE, Israel Brooks: PERFORM Event Display: Consultation Note Authored Date: [id number] Patient: ??LASHANDA RICHTER ? Age:??43 Years?Sex:??Female?:??1980?? Referrring Provider Robbie Ly NP Chief Complaint Abd pain Reason for Consultation distension History of Present Illness This is a 43-year-old female with past medical history of alcohol abuse, cocaine abuse, benzodiazepine abuse, opiate abuse, depression, anxiety, PTSD, GERD who presents to the emergency department with abdominal pain.? Patient states that she been having abdominal discomfort for several weeks with increasing??distention, bloating when??discomfort throughout her entire abdomen.?? States she has been only having small??bowel movements but has not had significant decrease in her appetite.?? . In the ED CT abdomen / pelvis with IV contrast only shows distended small bowel and colon without transition point. ?? She received 4 L of GoLytely??with??appropriate bowel movements??which was still brown??but not clear.?? She mentions that she had been passing bowel movements but not passing gas. ? Review of Systems As per the patient's h and p, the rest of review of systems are negative or noncontributory Physical Exam Vitals & Measurements T:??98.3?F?? TMIN:??97.5?F?? TMAX:??98.3?F?? HR:??74??(Peripheral)?? RR:??14?? BP:??122/81?? SpO2:??98%?? WT:??64.4??kg?? Constitutional: Alert, in no distress. Mental Status: Oriented to person, place and time. Head: Normocephalic. Neck: Supple, Full range of motion. Respiratory: Clear to auscultation. No wheezing, rales or rhonchi. Cardiovascular: S1 S2 regular. No murmurs, rubs or gallops. Gastrointestinal: Abdomen soft, tender, distended. Normal bowel sounds. No pulsatile mass. No hepatosplenomegaly. Sluggish bowel sounds Neurologic: Moves all extremities spontaneously. Skin: No rashes or lesions. No petechiae or purpura.?? Musculoskeletal: No cyanosis or clubbing. No gross deformities. Normal range of motion. Psychiatric: Normal mood and affect Assessment/Plan This is a 43-year-old woman with prior history of chronic constipation presents to the hospital??with abdominal pain and increased abdominal distention.?? Noncontrast CT reveals both small bowel and large bowel distention. ?? Acute colonic pseudoobstruction may be in the differential ?? Recommendations Recommend repeat abdominal x-ray, then daily Daily cbc, electrolytes Recommended??1 to 2 L GoLytely per day ??remain on a liquid diet Recommended??tapwater enema. While I was there the patient declined repeat GoLytely and tapwater enema.?? She could benefit froma rectal tube. Based on the x-ray it may be prudent to repeat the CAT scan??with oral contrast??preferably Gastrografin Dicyclomine as needed for crampy abdominal pain Frequent ambulation Slep in a knee-chest psotion alternating left and right positiopn Use opiates sparingly If no better after??48 ??hours consider neostigmine iv ?? Please note below ?Neostigmine, an acetylcholinesterase inhibitor, is indicated in patients with acute colonic pseudo-obstruction and cecal diameter >12 cm or in patients who fail 48 to 72 hours of conservative therapy. In patients with cecal diameter >12 cm and in patients who have failed 72 hours of conservative therapy, we use pharmacologic therapy with neostigmine. Relative contraindications to the use of neostigmine include recent myocardial infarction, acidosis, asthma, bradycardia, peptic ulcer disease, and therapy with beta-blockers. The use of neostigmine in , although reported, has not been well studied [29]. ?? Dose and administration ??? Neostigmine (2 to 5 mg) should be delivered by slow intravenous injection over five minutes, with continuous monitoring of vital signs and electrocardiograph for 30 minutes and continuous clinical assessment for 15 to 30 minutes [26,30]. Patients should be kept supine adolfo bedpan, and atropine should be available at the bedside to treat bradycardia associated with neostigmine [30]. ?? Plan was discussed with the patient who agreed and verbalized understanding. ?Thank you for allowing me the opportunity to take care of your wonderful patient.?PLEASE NOTE: This document was generated with speech recognition software. ??As such, some typographical or misheard errors may be present, as well as formatting irregularities which do notaffect overall content. ??This note was reviewed for accuracy in sum and substance but not word by word for all such mistranscriptions. ??We apologize for this technological limitation. ??If there isany question or feedback about the content of this document, please first contact our office. Thankyou. Total Time Spent I personally spent a total of??30 minutes, including both [id number] and [id number]-face time onthe date of the encounter, addressing the above diagnoses. Problem List/Past Medical History Ongoing Anxiety Benzodiazepine abuse Bipolar affective Cervix, short (affecting ) Constipation Contraception management Current tobacco use Depression Dermatitis Drug abuse during Dysphagia Encounter to establish care Frequent headaches GBS carrier GERD (gastroesophageal reflux disease) H/O delivery, currently H/O delivery, currently History of opioid abuse Homeless Hx of trauma in childhood Low grade [employer] Marijuana smoker MDD (major depressive disorder), recurrent severe, without psychosis PTSD (post-traumatic stress disorder) Screening for breast cancer Sinus pain Subclinical hypothyroidism Procedure/Surgical History ???Open treatment of acute or chronic elbow dislocation (02/03/2023)???Endoscopic esophageal dilator (2015)???Dilation and curettage (2009)???Carpal tunnel (1996)???[place] Teeth extraction Medications Inpatient Acetaminophen Tablet, 650 mg, By Mouth, Every 4 hours, PRN Ativan 1 mg oral tablet, 1 mg, By Mouth, 4 times a day, PRN cloNIDine 0.1 mg oral tablet, 0.1 mg, By Mouth, 4 times a day, PRN dicyclomine 10 mg oral capsule, 10 mg= 1 capsule, By Mouth, 4 times a day Docusate Sodium Capsule, 100 mg= 1 capsule, By Mouth, 2 times a day, PRN doxazosin 2 mg oral tablet, 2 mg, By Mouth, Daily at bedtime Golytely Liquid, 2000 mL, By Mouth, Daily Melatonin Tablet, 3 mg, By Mouth, Daily at bedtime, PRN MiraLax Powder, 17 Gm= 1 pack/packet, By Mouth, Daily, PRN MorPHINE Inj, 4 mg, IV Push Slowly, Every 6 hours, PRN NaCL 0.9% Flush, 3 mL, IV Push, Every 8 hours NaCL 0.9% Flush, 3 mL, IV Push, Every 8 hours, PRN olanzapine 2.5 mg oral tablet, 2.5 mg, By Mouth, 2 times a day Ondansetron Inj, 4 mg, IV Push Slowly, Every 30 minutes, PRN Robitussin DM Liquid, 10 mL, By Mouth, Every 4 hours, PRN Senna Tablet, 8.6 mg= 1 tablet, By Mouth, 2 times a day, PRN SEROquel 100 mg oral tablet, 300 mg, By Mouth, Daily at bedtime Simethicone Tablet, 80 mg, Chew, 3 times a day, PRN Home Ativan 1 mg oral tablet, 1 mg= 1 tablet, By Mouth, 4 times a day, PRN cloNIDine 0.1 mg oral tablet, 0.1 mg, By Mouth, 4 times a day doxazosin 2 mg oral tablet, 2 mg= 1 tablet, By Mouth, 2 times a day hydrOXYzine pamoate 50 mg oral capsule, 50 mg= 1 capsule, By Mouth, 4 times a day, PRN KlonoPIN 1 mg oral tablet, 1 mg= 1 tablet, By Mouth, Daily loratadine 10 mg oral tablet, 10 mg= 1 tablet, By Mouth, Daily olanzapine 2.5 mg oral tablet, 2.5 mg= 1 tablet Seroquel, 300 mg, By Mouth, Daily at bedtime SEROquel 100 mg oral tablet, 100 mg= 1 tablet, By Mouth, 3 times a day traZODone 50 mg oral tablet, 2 tablets, By Mouth, Daily at bedtime Allergies Mold??(HEADACHE, BREATHING ISSUES) Social History Alcohol Use: not currently. Electronic Cigarette/Vaping Electronic Cigarette Use: Never. Employment/School Status: Disabled. Exercise Regular exercise: Yes. Exercise type: Walking. Home/Environment Living situation: Home/Independent. Lives with: Spouse. Nutrition/Health Diet: Regular. Sexual Sexually involved in last 6 months: Yes. Gender of partner(s): Male. Substance Abuse Use: Current. Type: Cocaine, Marijuana. Tobacco Use: 5-9 cigarettes (between 1/4 to 1/2 pack)/day in last 30 days. Interested in cessation: No. Family History Anxiety 11-JUL-2016 02:49:49<$>: Mother. Depression: Mother. Drug used: Mother and Father. Hyperlipidemia: Mother. Skin cancer: Mother. ms: Mother. * Devante CRANE, Israel Brooks: PERFORM Event Display: Consultation Note Authored Date: [id number] AXR normal Note * Tricia Elise RN: PERFORM Event Display: Discharge/Transfer Note Hospital Authored Date: [id number] Nursing Discharge Note Entered On: 12/09/2023 14:32 EDT Performed On: 12/09/2023 14:30 EDT by Tricia Elise RN Nursing Discharge Note 2 Discharge Time : 12/09/2023 14:16 EDT Discharge Level of Care at Discharge : Inpatient Rehab Facility/Unit Name of Receiving Short Term Gen Hosp : [facility] Patient Left Unit Via : Wheelchair Patient Accompanied Off Unit with : Other: Luis michelleshama from facility, [facility] DC Instructions Provided & Signed by Pt : No Patient Understands D/C Instructions : No Verbalization of Discharge Plan Comments : medications reviewed with RN-RNHenny at [facility] 1316, spoke with MANAGER DESKTOPNidia, via phone to confirm scripts accompanying patient Patient Instructions Discharge Signed : Yes Did Pt have Specialty Bed or Wound Vac : No Tricia Elise RN - 12/09/2023 14:30 EDT * Dk CRANE, Travis Zambrano: PERFORM Event Display: Discharge/Transfer Note Hospital Authored Date: [id number] Patient: ??LASHANDA RICHTER ? Age:??43 Years?Sex:??Female?:??1980?? Patient Information Discharge Location: [facility] Primary Care Physician: Adeola Cassidy NP Admit Date/Time: 12/05/23 16:23 Discharge Disposition Discharge Disposition: Long-Term Facility/Rehab Discharge Diagnosis Irritable bowel syndrome (K58.9) Pseudo-obstruction of intestine (K59.89) Constipation (K59.00) Primary hypothyroidism (E03.9) Substance use disorder (F19.90) Bipolar affective (F31.9) Anxiety (F41.9) ?? _ Discharge Medications Clonazepam (KlonoPIN 1 mg oral tablet)?1?tab(s)?1?Milligram?By Mouth?Daily?for14?Days Clonidine (cloNIDine 0.1 mg oral tablet)?0.1?Milligram?By Mouth?4 times a day Doxazosin (doxazosin 2 mg oral tablet)?2?Milligram?1?tablet?By Mouth?2 times a day HydrOXYzine (hydrOXYzine pamoate 50 mg oral capsule)?1?capsule?50?Milligram?By Mouth?4 times a day?as needed?for anxiety Levothyroxine (levothyroxine 0.025 mg oral tablet)?50?Microgram?By Mouth?Daily Lorazepam (Ativan 1 mg oral tablet)?1?tab(s)?1?Milligram?By Mouth?4 times a day?as needed?for anxiety Nicotine?21?Milligram?Topically?Daily Nicotine (nicotine 4 mg oral transmucosal gum)?4?Milligram?Chew?Every hour?as needed?Other?Nicotine Cravings Olanzapine (olanzapine 2.5 mg oral tablet)?2.5?Milligram?1?tablet?TAKE 1 TABLET BY MOUTH TWICE A DAY NEEDED Polyethylene Glycol 3350 (MiraLax Powder)?1?pack/packet?17?gram?By Mouth?Daily?hold for diarrhea Quetiapine (Seroquel)?300?Milligram?By Mouth?Daily at bedtime Quetiapine (SEROquel 100 mg oral tablet)?100?Milligram?1?tablet?By Mouth?3 times a day Senna (senna 187 mg oral tablet)?2?tab(s)?17.2?Milligram?By Mouth?Daily at bedtime?hold for diarrhea Trazodone (traZODone 50 mg oral tablet)?2 tablets?By Mouth?Daily at bedtime ? Vaccinations and Immunoprophylaxis influenza virus vaccine, inactivated: 0.5 mL (08/10/22 08:23:00) influenza virus vaccine, inactivated: 0.5 mL (07/05/20 10:21:00) influenza virus vaccine, inactivated: 0.5 mL (06/27/19 11:22:00) influenza virus vaccine, inactivated: 0.5 Unknown (06/14/18 08:00:00) influenza virus vaccine, inactivated: 0.5 Unknown (05/14/17 08:00:00) influenza virus vaccine, inactivated: 0.5 Unknown (11/02/16 07:00:00) influenza virus vaccine, inactivated: 0.5 mL (11/05/15 14:52:00) influenza virus vaccine, inactivated: 0.5 Unknown (11/16/14 07:00:00) pneumococcal 23-valent vaccine: 0.5 mL (02/09/20 08:21:00) tetanus/diphtheria/pertussis, acel(Tdap): 0.5 mL (07/23/23 04:23:00) tetanus/diphtheria/pertussis, acel(Tdap): 0.5 mL (07/03/19 16:52:00) tetanus/diphtheria/pertussis, acel(Tdap): 0.5 mL (12/19/15 14:36:00) tetanus/diphtheria/pertussis, acel(Tdap): 0.5 Unknown (05/14/15 08:00:00) tetanus/diphtheria/pertussis, acel(Tdap): 0.5 mL (01/20/11 01:10:00) influ virus vac, H1N1, inactive(oldterm): 0 mL (07/30/09 15:29:00) ?? Allergies Allergies ?(Active and Proposed Allergies Only) Mold? (Severity: Mild, Onset: Unknown) ?Reactions: HEADACHE, BREATHING ISSUES ? Objective Assessment and Plan Assessment:??This 43-year-old woman with a history of polysubstance use disorder??currently on a section 35??and an inpatient rehabilitation facility,??bipolar disorder,??and mild obesity with a BMI of 26.8??presented to the emergency department for several weeks of abdominal pain and obstipation. ?? Although initial laboratory studies including serum test, urinalysis, CBC,??and chemistries with LFTs were unrevealing,??a CT scan suggest the presence of any??adynamic??ileus.??She was hospitalized??and seen in consultation by Dr. Low for gastroenterology.??She was started on??scheduled cathartics and began to move her bowels normally.??She underwent a screening colonoscopy??which was unrevealing,??and she had a CT??enterography??which showed no stigmata of inflammatory bowel disease??or findings to suggest obstruction. ?? Of interest, her TSH is 7??with a free T4 of 0.7??which is??low normal. ?? Irritable bowel syndrome (K58.9):??. Pseudo-obstruction of intestine (K59.89):??. Constipation (K59.00):? Patient is currently eating, drinking, and moving her bowels without difficulty. She continues to complain of abdominal pain, but has a benign abdominal examination. A CT enterography??and colonoscopy are unrevealing. It is unclear what bearing??mild hypothyroidism may have??on her symptoms. Plan: Discharge back to her substance use program this afternoon. Regular cathartic administration No dietary restrictions GI follow-up ?? Primary hypothyroidism (E03.9):? Patient appears to have subtle findings??of hypothyroidism associated with an elevated TSH??and a low normal free T4. She will be started on Synthroid??50 mcg daily Outpatient endocrinology follow-up is recommended. ?? Substance use disorder (F19.90):??. Bipolar affective (F31.9):? Noted.??Patient appears neither manic nor psychotic. She received small amounts of opioid analgesics on this hospitalization, but should not be treated with opioids in the longer term??for her abdominal complaints. ?? Code Status:? Full code ?Order Code Status:??Code Status Ordered ?? Discharge Planning:? Discharge back to her substance use program on 12/08. ? Measurements?? Height: 155 cm (12/09/23) Weight: 64.4 kg (12/08/23) Dry Weight: 50 kg (12/05/23) Body Mass Index:??26.81 kg/m2??High (12/08/23) ? Vital Signs?? Temperature: 98.3 DegF (12/09/23 11:20:00) Temperature Route: Oral (12/09/23 11:20:00) Pulse Rate:??91 bpm??High (12/09/23 11:20:00) Heart Rate Monitored: 76 bpm (12/08/23 14:45:00) Respiratory Rate: 18 br/min (12/09/23 11:20:00) Systolic Blood Pressure: 125 mm Hg (12/09/23 11:20:00) Diastolic Blood Pressure: 82 mm Hg (12/09/23 11:20:00) Blood pressure sites: Arm, right (12/09/23 11:20:00) Mean Arterial Pressure: 96 mm Hg (12/09/23 11:20:00) Pulse Pressure: 43 mm Hg (12/09/23 11:20:00) Oxygen Saturation: 97 % (12/09/23 11:20:00) Liters per Minute: 0 L/min (12/08/23 19:12:00) Mode of Delivery (Oxygen): Room air (12/09/23 11:20:00) Early Warning Score: 0 (12/09/23 12:10:35) ? Intake/Output? 12/04 16:23 12/08 07:00 12/07 07:00 12/06 07:00 12/05 07:00 ?? 12/08 12:41 12/08 12:41 12/08 06:59 12/07 06:59 12/06 06:59 Intake ? 6630 ?400 ? 2220 ?0 ?480 Output ?0 ?0 ?0 ?0 ?0 Net Total ? 6630 ?400 ? 2220 ?0 ?480 ? Urine Count ? 20 ?0 ?2 ?3 ? 15 ? . Physical Exam General: This is a pleasant and cooperative woman seated at the edge of the bed??eating lunch??in no apparent distress. Head EENT:??Extraocular muscle movement intact. Moist mucous membranes. Neck: Supple.?? No JVD. Respiratory:??Clear to auscultation. No wheezing or crackles. No use of accessory muscles. Cardiovascular:??S1S2 regular. No murmurs, rubs or gallops. Gastrointestinal: Abdomen is protuberant, but bowel sounds are normally active.?? There is no localizing tenderness. ??No masses are appreciated Genitourinary:??No CVA tenderness. Extremities:??No lower extremity pitting edema. No cyanosis or clubbing. Neurologic:??AAOx3, Speech normal. No focal neurological deficits. Skin:??No rash. Psychiatric:??Normal mood and affect. Surgical Procedures Colonoscopy Diagnostic 12/08/2023 14:23 Pending Results Add On Lab Order ordered on 12/09/2023 Patient Education Titles [employer] Patient Education - Ileus?? Follow-Up Appointments Added Follow Up ?Time Frame ?Comments [facility]?1 month?New diagnosis of primary hypothyroidism Adeola Cassidy NP Patient Instructions You were hospitalized to evaluate??abdominal pain and a disordered bowel pattern. In the course of your evaluation you were found to have??hypothyroidism,??a hormonal disorder that can have many??consequences including constipation. You have had a thorough investigation for inflammatory bowel disease??and mechanical obstruction ofthe bowel and colon, and no??important abnormalities have been found. You have been started on regular doses of cathartic medications, senna, and MiraLAX??which you should take daily??to be held only for significant diarrhea. You will also be started on a small dose??of??thyroid hormone.?? The dose may need to be adjusted in 4 to 6 weeks. We will try to schedule an appointment with an fertilizer supervisor in [place], and you should be evaluated in the next several months. Post Discharge Care Diet: ??Regular Diet ?? Activity: ??Unrestricted ?? Code Status: ??Full Resuscitation ?? Condition: ??Stable ?? Prognosis: ??Good ?? Discharge ?12/09/23 12:41:00 EDT Home Health Face to Face ^HomeHealthFTF Results Discharge Labs BLOOD COUNT & DIFF WBC 6.5 k/mm3 ()?? 12/09/2023 05:55 RBC 3.83 m/mm3 (Low)?? 12/09/2023 05:55 Hgb 11.3 Gm/dL (Low)?? 12/09/2023 05:55 Hct 34.1 % (Low)?? 12/09/2023 05:55 MCV 89.0 femtoliters ()?? 12/09/2023 05:55 MCH 29.5 pg ()?? 12/09/2023 05:55 MCHC 33.1 g/dL ()?? 12/09/2023 05:55 Platelet Count 193 k/mm3 ()?? 12/09/2023 05:55 RDW-SD 42.8 femtoliters ()?? 12/09/2023 05:55 MPV 11.2 femtoliters ()?? 12/09/2023 05:55 Nucleated RBC (Automated) 0.0 #/100 WBC'S ()?? 12/09/2023 05:55 Abs. NRBC 0.0 k/mm3 ()?? 12/09/2023 05:55 Abs. Neut 3.5 k/mm3 ()?? 12/09/2023 05:55 Abs. Lymph 2.0 k/mm3 ()?? 12/09/2023 05:55 Abs. Benton 0.7 k/mm3 ()?? 12/09/2023 05:55 Abs. Eo 0.3 k/mm3 ()?? 12/09/2023 05:55 Abs. Baso 0.1 k/mm3 ()?? 12/09/2023 05:55 Neut % 53.4 % ()?? 12/09/2023 05:55 Lymph % 31.0 % ()?? 12/09/2023 05:55 Benton % 10.0 % ()?? 12/09/2023 05:55 Eos % 4.4 % ()?? 12/09/2023 05:55 Baso % 0.9 % ()?? 12/09/2023 05:55 Imm Gran 0.3 % ()?? 12/09/2023 05:55 Abs. Imm Gran 0.0 k/mm3 ()?? 12/09/2023 05:55 ?? CHEM GENERAL Sodium 138 mmol/L ()?? 12/09/2023 05:55 Potassium 4.2 mmol/L ()?? 12/09/2023 05:55 Chloride 106 mmol/L ()?? 12/09/2023 05:55 Bicarbonate Level 24 mmol/L ()?? 12/09/2023 05:55 Anion Gap 8 ()?? 12/09/2023 05:55 Glucose Level 103 mg/dL (High)?? 12/09/2023 05:55 BUN 9 mg/dL ()?? 12/09/2023 05:55 Creatinine-Blood 0.7 mg/dL ()?? 12/09/2023 05:55 Estimated GFR Creatinine 107 ML/MIN/1.73 M2 ()?? 12/09/2023 05:55 Calcium 8.5 mg/dL (Low)?? 12/09/2023 05:55 Protein, Total 5.5 Gm/dL (Low)?? 12/05/2023 14:10 Albumin 3.7 Gm/dL ()?? 12/05/2023 14:10 AG Ratio 2.1 ()?? 12/05/2023 14:10 Alkaline Phosphatase 62 units/L ()?? 12/05/2023 14:10 Lipase 15 units/L ()?? 12/05/2023 14:10 AST (SGOT) 25 units/L ()?? 12/05/2023 14:10 ALT (SGPT) 111 units/L (High)?? 12/05/2023 14:10 Bilirubin, Total 0.2 mg/dL ()?? 12/05/2023 14:10 Lactate 1.3 mmol/L ()?? 12/05/2023 14:10 ? COAG INR 1.0 ()?? 12/05/2023 14:10 Protime (PT) 10.3 seconds ()?? 12/05/2023 14:10 ?? ENDOCRINE/TUMOR MARKER TSH 7.11 uIU/mL (High)?? 12/09/2023 05:55 Free T4 0.70 ng/dL ()?? 12/09/2023 05:55 Blood <1 mIU/mL ()?? 12/05/2023 14:10 ? HEME OTHER Hold Lavender Top SPECIMEN DISCARDED AFTER 24 HOURS. ()?? 12/08/2023 08:40 ? UA/URINALYSIS Appear/Color, Urine COLORLESS ()?? 12/05/2023 13:31 Clarity CLEAR (N)?? 12/05/2023 13:[address], Urine <1.005 ()?? 12/05/2023 13:31 pH, Urine 7.0 ()?? 12/05/2023 13:31 Albumin, Urine NEGATIVE (N)?? 12/05/2023 13:31 Glucose, Urine NEGATIVE (N)?? 12/05/2023 13:31 Ketones, Urine NEGATIVE (N)?? 12/05/2023 13:31 Bilirubin, Urine NEGATIVE (N)?? 12/05/2023 13:31 Hemoglobin, Urine NEGATIVE (N)?? 12/05/2023 13:31 Nitrite, Urine NEGATIVE (N)?? 12/05/2023 13:31 Leukocyte, Urine NEGATIVE (N)?? 12/05/2023 13:31 Urobilinogen NORMAL mg/dL (N)?? 12/05/2023 13:31 Hold Urine Culture Testing available 48 hours from time of collection. ()?? 12/05/2023 13:31 ? URINE OTHER Est Creatinine Clearance 79.09 mL/min ()?? 12/08/2023 09:07 ? Procedures(s) ?GG Colonoscopy ?? 12/08/2023 14:30 ?Impressions: Normal mucosa in the whole colon ?? Recommendations: Continue current GI medications Follow-up as needed MiraLAX 17 g daily If persistent abdominal distention, recommend CT enterography. ? Imaging(s) ?Abdomen Comp Inc Decub and/or Erect ?? 12/07/2023 09:58??by Bishop Rodriguze MD ?COMPARISON: December 06, 2023 ?? FINDINGS: ?? Mild gaseous distention of colon. Minimal small bowel gas markings without overt obstruction. No pneumoperitoneum or acute osseous finding. Suspected mild hepatosplenomegaly. ?? IMPRESSION: ?? 1. Nonspecific not overtly obstructed bowel gas pattern. 2. Probable hepatosplenomegaly. ?CT Enterography ?? 12/09/2023 10:50??by Juan Valladares MD ?FINDINGS: ?? Distention of small bowel loops is adequate. Stomach: The stomach is moderately distended with debris. No abnormal wall thickening or hyperenhancement. Small bowel: The small bowel is normal in caliber with no evidence of bowel obstruction. No bowel wall thickening or abnormal enhancement are seen. The terminal ileum is normal. Colon: The rectum is normal. The colon is normal. No abnormal colonic wall thickening or enhancement are seen. Rectum: The rectum is normal. . ?? There is no evidence of bowel stricture, phlegmon or abscess. There is no pneumoperitoneum or ascites. There is no engorgement of the vasa recta. The celiac, superior mesenteric and inferior mesenteric arteries are patent without significant stenosis. Hepatic arterial anatomy is conventional. No SMV, splenic, portal or hepatic vein thrombus.. ?? Lung Bases: Mild bibasilar atelectasis. No pleural effusion. Normal heart size. No pericardial effusion. Liver: Normal morphology. No focal masses. Gallbladder: Contracted. Bile ducts: No bile duct dilation. Spleen: The spleen is enlarged, measuring up to 14.5 cm, new from 08/2023 (previously measuring 12.1 cm). Heterogeneous enhancement of the spleen probably due to contrast timing, and similar to priorstudy on 09/11/2023. Pancreas: Normal. Adrenal Glands: Normal. Kidneys and Ureters: 0.2 cm calculus at the right kidney upper pole. No left calculi. No hydronephrosis. Lymph nodes: No pathologically enlarged lymph nodes. Mesentery:No ascites. No peritoneal nodularity. Vascular structures:Mild atherosclerotic disease involving the abdominal aorta. Dilated left ovarian vein. Dilated parametrial vasculature, left more so than right. Abdominal wall: Tiny fat-containing umbilical hernia. Pelvic Organs and Bladder: 2.6 and a simple cyst in the right ovary, physiologic.. Bones: No acute findings. ? IMPRESSION: 1. No evidence of small bowel inflammation, obstruction or mass. 2. No acute findings in the abdomen or pelvis. 3. Mild splenomegaly measuring up to 14.5 cm, new from 08/2023, uncertain etiology. 4. 0.2 cm nonobstructing calculus in the right kidney upper pole. 5. Dilated parametrial vessels, left more so than right is a nonspecific finding can be seen in asymptomatic patients, but can also be associated chronic pain in the setting of pelvic venous congestion syndrome. ? 35??minutes spent on discharge * Dafne Sparks RN: PERFORM Event Display: Patient Education/Instruction Authored Date: [id number] Inpatient Adult Discharge Instructions. [place] [id number] Name: LASHANDA RICHTER : 1980?? Visit: 12/05/2023 16:23?? Current Date: 12/09/2023 13:56 ?? Account: [id number]?? Inpatient Adult Discharge Instructions We would like [...] and their families. Surveys are administered by [employer] ?? If further treatment with your primary care physician or another doctor is recommended, it is important for you to keep the appointment. Call your primary care physician or return to the Emergency Department immediately if your condition worsens, fails to improve, or new symptoms develop. If you need to find a doctor, you can call [email or web address] for a referral at [phone] or toll free at [phone] Con [phone] ([phone]) or log in to [email or web address].. ?? [facility], in keeping with [facility] guidance, no longer requires face masks [...] a health care ros of your choosing. [employer] is a website that allows you to securely view your medical information including your hospital discharge summary, office visit summaries, medications and follow-up visits. You can also request appointments, renew medications, and request access to your medical information using a health care ros of your choosing, or just ask a question. You can enroll at [email or web address] or register during your next office visit. You have been discharged from [facility], Patient Care Unit: [id number]??. If you have any questions regarding these instructions, including results of studies pending, afteryou leave, please call us and we will be happy to assist you 19/04. [facility] Your Care Team Attending Physician Dk CRANE, Travis Zambrano?? Consulting Providers Travis Root MD?? Discharging Providers Travis Root MD Reason for Your Visit Abd pain?? Your Diagnosis Irritable bowel syndrome Pseudo-obstruction of intestine Bipolar affective Anxiety Primary hypothyroidism Substance use disorder Tests Performed Below is a partial list of the tests performed during your hospitalization. You may have had other tests and procedures not included in this list. Please discuss all test results with your provider. Basic Metabolic Panel BUN CBC CBC w/ Differential Comprehensive Metabolic Panel Creatinine Electrolytes FREE T4 HOLD LAVENDER TUBE INR Lactate Level Lipase Serum Quantitative TSH Urinalysis w/hold for Urine Culture Comp Abd [address] Abd/Pelvis W/ IV Contrast Only CT Enterography XR ABD COMP/DECUB/ERECT Add On Lab Order?? Primary Care Provider Adeola Cassidy NP? Advance Directive Health Care Proxy on File Yes - Health Care Proxy Discharge Vitals Temperature: 98.3 DegF Height: 155 cm Pulse Rate:??91 bpm??High Weight: 64.4 kg Respiratory Rate: 18 br/min Body Mass Index:??26.81 kg/m2??High Systolic Blood Pressure: 125 mm Hg Body surface area: 1.67 Diastolic Blood Pressure: 82 mm Hg ?? Oxygen Saturation: 97 % ?? Studies Pending All studies ordered during this hospital stay have been completed unless listed below. Please discuss all pending results with your provider listed above in these instructions. ?? Add On Lab Order?? What to do next Instructions From Your Doctor You were hospitalized to evaluate??abdominal pain and a disordered bowel pattern. In the course of your evaluation you were found to have??hypothyroidism,??a hormonal disorder that can have many??consequences including constipation. You have had a thorough investigation for inflammatory bowel disease??and mechanical obstruction ofthe bowel and colon, and no??important abnormalities have been found. You have been started on regular doses of cathartic medications, senna, and MiraLAX??which you should take daily??to be held only for significant diarrhea. You will also be started on a small dose??of??thyroid hormone.?? The dose may need to be adjusted in 4 to 6 weeks. We will try to schedule an appointment with an fertilizer supervisor in [place], and you should be evaluated in the next several months. ?? Orders??:Regular Diet :Unrestricted Status: ??Full Resuscitation :Stable :Good? 12/09/23 12:41:00 EDT?? You Need to Schedule the Following Appointments Follow Up with??[facility] When:??Within 1 month Why: New diagnosis of primary hypothyroidism Follow Up with??Adeola Cassidy NP Where: [address] [facility] [address] [place] [address]- Discharge Medications LASHANDA RICHTER :1980 Visit Date:12/05/2023 Medications: Please continue your medications until treatment is completed or stopped by your provider. Medications not listed below should be discontinued. Discuss any questions related to medications with your provider. What How Much When Instructions Next Dose New Levothyroxine (levothyroxine 0.025 mg oral tablet) 50 Microgram Oral Daily Printed Prescription 3. @ 7am New Nicotine (Nicoderm C-Q Clear 21 mg/ 24 hr transdermal film, extended release) 1 patch(es) Topically Daily Printed Prescription 12.10.23 @ 9am New Nicotine (nicotine 4 mg oral transmucosal gum) 4 Milligram Chew Every hour as needed for Other Nicotine Cravings ?? Printed Prescription as needed New Polyethylene Glycol 3350 (GaviLAX oral powder for reconstitution) 17 gram Oral Daily Hold for diarrhea ?? Printed Prescription 12.10.23 @ 9am New Senna (senna 187 mg oral tablet) 1 tab(s) Oral Twice a day Hold for diarrhea ?? Printed Prescription 12.09.23 @ 9pm Unchanged Clonazepam (KlonoPIN 1 mg oral tablet) 1 tab(s) Oral Daily Duration: 14 Days 12.10.23 @ 9pm Unchanged Doxazosin (doxazosin 2 mg oral tablet) 1 tab(s) Oral Twice a day 12.09.23 @ 9pm Unchanged HydrOXYzine (hydrOXYzine pamoate 50 mg oral capsule) 1 capsule Oral 4 times a day as needed for for anxiety as needed Unchanged Lorazepam (Ativan 1 mg oral tablet) 1 tab(s) Oral 4 times a day as needed for for anxiety as needed Unchanged Olanzapine (olanzapine 2.5 mg oral tablet) 1 tab(s) TAKE 1 TABLET BY MOUTH TWICE A DAY NEEDED ?? as needed Unchanged Quetiapine (SEROquel 100 mg oral tablet) 1 tab(s) Oral 3 times a day 12.09.23 @ 3pm Unchanged Quetiapine (Seroquel) 300 Milligram Oral Daily at Bedtime 3?? @9pm Unchanged Trazodone (traZODone 50 mg oral tablet) 2 tablets Oral Daily at Bedtime 3 @ 9pm ?? What How Much When Comments Stop Taking Benztropine (Cogentin Tablet) 1 Milligram Oral Twice a day Stop Taking Loratadine (loratadine 10 mg oral tablet) 1 tab(s) Oral Daily Duration: 7 Days Prescription Given During Visit Levothyroxine (levothyroxine 0.025 mg oral tablet) - 50 mcg, By Mouth, Daily, # 30 tablet, 0 Refills?? Nicotine (Nicoderm C-Q Clear 21 mg/24 hr transdermal film, extended release) - 1 patch, Topically, Daily, # 30 patch, 0 Refills?? Nicotine (nicotine 4 mg oral transmucosal gum) - 4 mg, Chew, Every hour, # 40 each, 0 Refills, Nicotine Cravings?? Polyethylene Glycol 3350 (GaviLAX oral powder for reconstitution) - 17 Gm, By Mouth, Daily, # 238 Gm, 0 Refills, Hold for diarrhea?? Senna (senna 187 mg oral tablet) - 1 tablet = 8.6 mg, By Mouth, 2 times a day, # 100 tablet, 0 Refills, Hold for diarrhea?? Laboratory Results Below is a partial list of the most recent Laboratory test results done prior to this discharge. You may have had other tests and procedures not included in this list. Please discuss all test resultswith your provider. Est Creatinine Clearance - 79.09 mL/min (12/08/2023) Basic Metabolic Panel (12/09/2023) ???Sodium - 138 mmol/L???Potassium - 4.2 mmol/L???Chloride - 106 mmol/L???Bicarbonate Level - 24 mmol/L???Anion Gap - 8???Glucose Level - 103 mg/dL???BUN - 9 mg/dL???Creatinine-Blood - 0.7 mg/dL???Estimated GFR Creatinine - 107 ML/MIN/1.73 M2???Calcium - 8.5 mg/dL BUN (12/06/2023) ???BUN - 8 mg/dL CBC (12/06/2023) ???WBC - 5.2 k/mm3???RBC - 3.53 m/mm3???Hgb - 10.5 Gm/dL???Hct - 31.8 %???MCV - 90.1 femtoliters???MCH - 29.7 pg???MCHC - 33.0 g/dL???Platelet Count - 137 k/mm3???RDW-SD - 47.4 femtoliters???MPV - 12.1 femtoliters???Nucleated RBC (Automated) - 0.0 #/100 WBC'S???Abs. NRBC - 0.0 k/mm3 CBC w/ Differential (12/09/2023) ???WBC - 6.5 k/mm3???RBC - 3.83 m/mm3???Hgb - 11.3 Gm/dL???Hct - 34.1 %???MCV - 89.0 femtoliters???MCH - 29.5 pg???MCHC - 33.1 g/dL???Platelet Count - 193 k/mm3???RDW-SD - 42.8 femtoliters???MPV - 11.2 femtoliters???Nucleated RBC (Automated) - 0.0 #/100 WBC'S???Abs. NRBC - 0.0 k/mm3???Abs. Neut - 3.5 k/mm3???Abs. Lymph - 2.0 k/mm3???Abs. Benton - 0.7 k/mm3???Abs. Eo - 0.3 k/mm3???Abs. Baso - 0.1 k/mm3???Neut % - 53.4 %???Lymph % - 31.0 %???Benton % - 10.0 %???Eos % - 4.4 %???Baso % - 0.9 %???Imm Gran - 0.3 %???Abs. Imm Gran - 0.0 k/mm3 Comprehensive Metabolic Panel (12/05/2023) ???Sodium - 137 mmol/L???Potassium - 4.3 mmol/L???Chloride - 105 mmol/L???Bicarbonate Level - 23 mmol/L???Anion Gap - 9???Glucose Level - 95 mg/dL???BUN - 13 mg/dL???Creatinine-Blood - 0.6 mg/dL???Estimated GFR Creatinine - 112 ML/MIN/1.73 M2???Calcium - 7.8 mg/dL???Protein, Total - 5.5 Gm/dL???Albu min - 3.7 Gm/dL???AG Ratio - 2.1???Alkaline Phosphatase - 62 units/L???AST (SGOT) - 25 units/L???ALT (SGPT) - 111 units/L???Bilirubin, Total - 0.2 mg/dL Creatinine (12/06/2023) ???Creatinine-Blood - 0.6 mg/dL???Estimated GFR Creatinine - 112 ML/MIN/1.73 M2 Electrolytes (12/06/2023) ???Sodium - 139 mmol/L???Potassium - 4.4 mmol/L???Chloride - 108 mmol/L???Bicarbonate Level - 23 mmol/L???Anion Gap - 8 FREE T4 (12/09/2023) ???Free T4 - 0.70 ng/dL HOLD LAVENDER TUBE (12/08/2023) ???Hold Lavender Top - SPECIMEN DISCARDED AFTER 24 HOURS. INR (12/05/2023) ???INR - 1.0???Protime (PT) - 10.3 seconds Lactate Level (12/05/2023) ???Lactate - 1.3 mmol/L Lipase (12/05/2023) ???Lipase - 15 units/L Serum Quantitative (12/05/2023) ? ?Blood - <1 mIU/mL TSH (12/09/2023) ???TSH - 7.11 uIU/mL Urinalysis w/hold for Urine Culture (12/05/2023) ? ?Appear/Color, Urine - COLORLESS? ?Clarity - CLEAR? ?Specific [place], Urine - <1.005? ?pH, Urine - 7.0???Albumin, Urine - NEGATIVE???Glucose, Urine - NEGATIVE???Ketones, Urine - NEGATIVE???Bilirubin, Urine - NEGATIVE???Hemoglobin, Urine - NEGATIVE???Nitrite, Urine - NEGATIVE???Leukocyte, Urine - NEGATIVE???Urobilinogen - NORMAL???Hold Urine Culture - Testing available 48 hours from time of collection. Allergies (NKA means No Known Allergies) Mold??(HEADACHE, [...] Educational Leaflet Providered with your Discharge Instructions. Web[employer] Ignite Patient Education - Ileus?? Valuables and Belongings I fully understand and agree that [facility] accepts no responsibility for all my [...] patient Date for Pt to Sign Valuables/Belongings: 12/07/23 03:35:00 ?? Other Discharge Information ? Pulmonary Rehab [...] are strongly encouraged to quit. Please call [facility] at [phone] or [phone] ([phone]) or log in to [email or web address] for referrals to smoking cessation programs. ?? 113 Suicide & Crisis Lifeline is available 19/04 if you or someone you know needs to find a reason to keep living. By calling 455 you'll be connected to a skilled, trained counselor at a crisis center in your area. INPATIENT DISCHARGE INSTRUCTIONS SIGNATURE PAGE LASHANDA RICHTER Location:[facility] Registration Date and Time:12/05/2023 16:23 EDT Primary Care Physician: Adeola Cassidy NP, Attending Physician: Dk CRANE, Travis Zambrano, I LASHANDA RICHTER, have received the above patient education materials/instructions and have verbalized understanding. If ambulance or transport services are being used I further acknowledge being given a choice of service. ?? If you need to contact me, please call me at this number: . Patient/Floral Designer Name: Patient/Floral Designer Signature: Relationship to Patient: Witness Name/Signature: Date: * Daisy Portillo: PERFORM Event Display: Patient Education Leaflets Authored Date: [id number] Ileus ?? [id number] Ileus Ileus??occurs when there is a problem with motility in the stomach and small or large intestine (bowel). Motility is the movement of food and waste??through the digestive tract. Ileus is not caused by a physical blockage (obstruction). ?? Normally, muscles in the bowel fraga squeeze (contract) to move waste along. Signals from nerves tell the muscles when to contract. With ileus, this movement slows down or stops completely. As a result, waste can???t move through the bowels and out of the body. This can cause belly (abdominal) painand other symptoms. Treatment is needed to restore normal movement and ease symptoms. The digestive tract. Causes of ileus Ileus can be caused by: ??? Abdominal surgery ??? Abdominal infection ??? Injury to blood vessels that supply blood to the abdomen ??? Low levels of sodium or potassium (electrolyte imbalance) ??? Certain medicines, such as??opioid??pain medicines ??? Certain kidney or lung diseases ??? Certain health problems, such as cystic fibrosis and diabetes? Symptoms of ileus Common symptoms of ileus include: ??? Belly swelling or bloating ??? Upset stomach (nausea) and vomiting ??? Belly cramps ??? Constipation or diarrhea? Loss of appetite ??? Not able to keep fooddown ??? Not able to pass stool or gas ?? Diagnosing ileus Your healthcare provider will ask about your symptoms and health history. You???ll also have a physical exam. If your provider thinks you may have ileus, tests may be done to confirm the problem. These can include: ??? Imaging tests.??These provide pictures of the bowels. Common tests include X-rays and a CT scan. ??? Blood tests.??These are done to check for infection and other problems, such asfluid loss (dehydration). ??? Upper GI (gastrointestinal) series. ??This test takes X-rays of the upper digestive tract, from the mouth to the small intestine.??An X-ray dye (contrast fluid) is used.The dye coats the inside of the upper digestive tract. This makes it show up clearly on X-rays. ?? Treating ileus In most cases, ileus goes away by itself when the main cause clears up. The goal is to manage symptoms until movement in the digestive tract returns to normal. Treatment takes place in a hospital. Aspart of your care, the following may be done: ??? No food or drink is given by mouth. This allows your bowels to rest. ??? An IV (intravenous) line is placed in a vein in your arm or hand. The IV line is used to give fluids and nutrition. It may also be used to give medicines. You may need medicines to improve movement in your digestive tract, or to ease pain. You may also need them to treat any underlying infections or conditions you have. ??? A soft, thin, flexible tube (nasogastric tube) is i nserted through your nose and into your stomach. The tube is used to remove extra gas and fluid in your stomach and bowels. This helps to ease symptoms such as pain and swelling. ??? You???ll be watched closely in the hospital until your symptoms get better. Your provider will tell you when you???re well enough to go home. This is often in a few days. ??? In rare cases, problems may occur. Other treatments, such as surgery, may then be done. Your provider will tell you more about other treatments, if needed. ?? Preventing ileus after surgery After surgery, your healthcare team will work hard to prevent you from getting an ileus. They may: ??? Help you get up soon after surgery to move around. Your team will make sure your pain is managed well so you can get up soon after surgery. ??? Monitor you closely for an ileus. This includes listening to the sounds in your belly (your bowel sounds ) to make sure your bowels are starting to work normally again. ??? Limit how much fluids and foods you eat until they know your bowels are starting to work again. Your healthcare team will give you specific instructions depending on the type of surgery you had. Follow their instructions. ?? Long-term concerns?? After treatment, most people fully recover. In some cases, you may need to see your provider for a follow-up appointment. ?? When to call the healthcare provider Call your healthcare provider right away if you have any of these: ??? Fever of??100.4??F??(38??C) or higher, or as advised by your provider ??? Chills ??? Belly swelling or pain that won???t go away??? Not able to pass stool or gas ??? Upset stomach and vomiting ??? Getting full very easily with only small amounts of food or drink ??? Bleeding from the rectum ??? Black, tarry stool ?? Last Reviewed Date: 2021 ?? [employer]. All rights reserved. This information is not intended as a substitute for professional medical care. Always follow your healthcare professional's instructions. ?? Patient Care team information Care Team Personnel Name: Tricia Elise RN Position: S RN Member Role: Primary Care Nurse Name: Morena Mcgraw RN Position: [facility] RN Member Role: Primary Care Nurse Name: Nat Joe RN Position: [facility] OB RN Member Role: Primary Care Nurse Name: Jo Lim RN Position: [facility] AMB Nurse Member Role: Primary Care Nurse Name: Adeola Cassidy NP Position: [facility] PCO Associate Professional Member Role: PCP Address: Address: [address] [place] [address] [address] [place] [address]- Name: Bharathi Robles RN Position: S RN Member Role: Primary Care Nurse Name: Olga Alas RN Position: [facility] RN Member Role: Primary Care Nurse Care Team Related Persons Name: GRADY BEARDEN Address: home [address] [place], [place] Name: NEENA COLE Address: [employer] Address: home [address] [place] [address] Name: GRADY COLE Address: home [address] [place], [place] Name: LEEANN SUTTON Address: home [address] [place] [address] Name: LUANNE SUTTON Address: home [address] [place] [address]
--- OUTSIDE RECORDS SUMMARY | 2024-03-23 07:54 | XMS_ITS | Continuity of Care Document ---
Author Organization [facility] Adult Address [address] [place] [address]- Care Team Providers Care Binding Printer Name Role Phone Khanh CARMONA, Adeola Primary Care Physician [phone] Encounter [facility] Date(s): 12/13/23 - 01/12/24 [facility] [address] [place] [address]- Attending Physician: Katharine Youngblood MD Allergies, Adverse Reactions, Alerts Substance Reaction [...] H1N1, inactive(oldterm) 2 07/30/09 Given 1Result Comment: [facility][NOTE 3] [id number] 2Admin Note: H1N1 Medications cloNIDine 0.1 mg oral tablet 0.1 mg, By Mouth, 4 times a day, # 56 tablet, Refills 0, Tot. Refills 0, Maintenance, 12/24/23 16:06:00 EDT, Route to Pharmacy Electronically, [facility]/pharmacy #[id number], Partial fill upon patient request [...] 16:37:00 EDT, Route to Pharmacy Electronically, [facility]/pharmacy #[id number], Partial fill upon patient request [...] 16:08:00 EDT, Route to Pharmacy Electronically, [facility]/pharmacy #[id number], Partial fill upon patientrequest if [...] opioid drug., 155, cm, 12/24/23 9:58:00 EDT, [place]... Start Date: 12/24/23 Stop Date: 01/07/24 Status: [...] 16:13:00 EDT, Route to Pharmacy Electronically, [facility]/pharmacy #[id number], Partial fill upon patient request if the [...] Care Nurse Name: Morena Mcgraw RN Position: S RN Member Role: Primary Care Nurse Name: Nat Joe RN Position: [facility] OB RN Member Role: Primary Care Nurse Name: Jo Lim RN Position: [facility] AMB Nurse Member Role: Primary Care Nurse Name: Adeola Cassidy NP Position: [facility] PCO Associate Professional Member Role: PCP Address: Address: [address] [place] [address] Name: Vivian Graham RN Position: [facility] RN Member Role: Primary Care Nurse Name: Bharathi Robles RN Position: [facility] RN Member Role: Primary Care Nurse Name: Katie Huggins RN Position: [facility] RN Member Role: Primary Care Nurse Name: Olga Alas RN Position: S RN Member Role: Primary Care Nurse Care Team Related Persons Name: SULEIMAN GRADY Address: home [address] [place], [place] Name: COLENEENA Address: [employer] Address: home [address] [place] [address] [place] Name: KELSEY GRADY Address: home [address] [place], [place] Name: LEEANN SUTTON Address: home [address] [place] [address] Name: LUANNE SUTTON Address: home [address] [place] [address]
--- OUTSIDE RECORDS SUMMARY | 2024-03-23 07:54 | XMS_ITS | Continuity of Care Document ---
Author Organization [facility] ter Address [address] [place] [address]- Care Team Providers Care Physical Therapy Asst Name Role Phone Adeola Cassidy NP Primary Care Physician [phone] Encounter [facility] Date(s): 11/23/23 - 11/23/[address] [address]- Discharge Disposition: A-D/C Walkout Attending Physician: Not [...] H1N1, inactive(oldterm) 2 07/30/09 Given 1Result Comment: [facility] [id number] 2Admin Note: H1N1 Medications KlonoPIN 1 mg oral tablet 1 tablet = 1 mg, By Mouth, Daily, # 14 tablet, 0 Refills, Maintenance, 10/08/23 11:09:00 EST, Tablet, [facility], Partial fill upon patient request [...] Date: 09/11/23 Stop Date: 09/18/23 Status: Ordered olanzapine 2.5 mg oral tablet 2.5 mg, 1, tablet, TAKE 1 TABLET BY MOUTH TWICE A DAY NEEDED Start Date: 10/06/23 Status: Ordered Seroquel 300 mg, By Mouth, [...] recent to oldest [Reference Range]: 1 2 Height 155 cm (11/23/23 12:11 AM) 155 cm (11/23/23 12:09 AM) Weight 54.5 kg (11/23/23 12:11 AM) 54.5 kg (11/23/23 12:09 AM) Oxygen Saturation [94-100 %] 100 % (11/23/23 12:09 AM) Pulse Rate [55-90 bpm] 104 bpm *H* (11/23/23 12:09 AM) Body Mass Index [18.5-24.99 kg/m2] 22.68 kg/m2 (11/23/23 12:09 AM) Blood Pressure [90-138/55-84 mm Hg] 157/ 107mm Hg *H* (11/23/23 12:09 AM) Respiratory Rate [16-30 br/min] 16 br/mi n (11/23/23 12:09 AM) Temperature [96.8-100.4 DegF] 97.7 DegF (11/23/23 12:09 AM) Mode of Delivery (Oxygen) Room air (11/23/23 12:09 AM) Blood pressure sites Arm, right (11/23/23 12:09 AM) Temperature Route Oral (11/23/23 12:09 AM) Dry Weight 54.5 kg (11/23/23 12:11 AM) 54.5 kg (11/23/23 12:09 AM) Weight Obtained Via Standing scale (11/23/23 12:09 AM) Dry Weight Obtained Via Standing scale (11/23/23 12:09 AM) Social History Social History Type Response Smoking Status 5-9 cigarettes (betw een 1/4 to 1/2 pack)/day in last 30 days; Interested in cessation: No entered on: 08/10/22 Sex Patient Care team information Care Team Personnel Name: Morena Mcgraw RN Position: [facility] RN Member Role: Primary Care Nurse Name: Nat Joe RN Position: [facility] OB RN Member Role: Primary Care Nurse Name: Jo Lim RN Position: [facility] AMB Nurse Member Role: Primary Care Nurse Name: Adeola Cassidy NP Position: [facility] PCO Associate Professional Member Role: PCP Address: Address: [address] [place] [address] [address] [place] [address]- [place] Name: Bharathi Robles RN Position: [facility] RN Member Role: Primary Care Nurse Care Team Related Persons Name: GRADY BEARDEN Address: home [address] [place] [address] Name: ENZO COLESSING Address: [employer] Address: [address] [place] [address] [place] Name: GRADY COLE Address: home [phone] [place] [address] Name: LEEANN SUTTON Address: home [address] [place] [address] Name: LUANNE SUTTON Address: home [address] [place] [address]
--- OUTSIDE RECORDS SUMMARY | 2024-03-23 07:55 | XMS_ITS | Continuity of Care Document ---
Author Organization [facility] Address [address] [place] [id number] Care Team Providers Care Data Conversion Operator Name Role Phone Khanh CARMONA, Adeola Primary Care Physician Encounter [facility] [place] Date(s): 12/14/23 - 12/18/[address] [id number]- Encounter Diagnosis Pancreatitis(Final) - 12/14/23 Discharge Disposition: A-D/C AMA Attending Physician: Yvrose Xie MD Admitting Physician: Ingrid CRANE, Alejandra Rashid Referring Physician: Not on Staff, Referring MD [...] 07/30/09 Given 1Result Comment: [facility] [id number] 2Admin Note: H1N1 Medications Ativan 0.5 mg [...] doxazosin 2 mg oral tablet 2 mg, Tablet, By Mouth, 12/18/23 9:00:00 EDT Start Date: 12/18/23 Stop Date: 12/18/23 Status: Completed Gas-X Extra Strength = 180 mg, By [...] Date: 12/18/23 Stop Date: 01/17/24 Status: Ordered traMADol 50 mg oral tablet 50 mg, Tablet, By Mouth, Every 4 hours, PRN for Pain , Moderate, Routine, 12/16/23 10:59:00 EDT Start Date: 12/16/23 Stop Date: 12/18/23 Status: Discontinued traZODone 50 mg oral tablet 2 tablets, [...] Exam Date Time Procedure Performing Provider Status 12/16/23 6:31 PM Abdomen AP Lety Brewer; Auth (Verified) Notes: (Abdomen AP) Reason For Exam: Pain;Pain RESULT: XR Abdomen AP XR Abdomen AP 2 view INDICATION/CLINICAL QUESTION: Reason: Pain; Clinical Question(s): Obstruction; Has functional pseudo obstruction COMPARISON: 12/15/2023 FINDINGS: Oral contrast within the colon. No dilated small or large bowel appreciated. IMPRESSION: See above WSN: [id number] Ordering Physician: Yvrose Xie Dictated By: Anthony Pollock MD Dictated Date/Time: 12/16/23 7:04 pm Reviewed By: Anthony Pollock MD Signed By: Anthony Pollock MD Signed Date/Time: 12/16/23 7:04 pm Transcribed By: MIRANDA Transcribed Date/Time: 12/16/23 7:02 pm * Exam Date Time Procedure Performing Provider Status 12/16/23 10:07 AM Esophagus Barium Swallow Daija Escalona; Auth (Verified) Notes: (Esophagus Barium Swallow) Reason For Exam: Dysphagia;dysphagia RESULT: Esophagus Barium Swallow PROCEDURE: Esophagus Barium Swallow CLINICAL INDICATION: Reason: Dysphagia; dysphagia; Clinical Question(s): Obstruction; Order Comment: TBD @ [address] Valladares. COMPARISONS: None FLUOROSCOPY TIME: 01 minute 28 seconds EXPOSURE: 1320 uGym2 (Dose Area Product) TECHNIQUE: Double contrast esophagram. Initially, water-soluble Omnipaque 300 was used, and when nogross obstruction was identified, examination switched to barium. FINDINGS: Swallowing mechanism: Initial swallow demonstrates no laryngeal penetration or tracheal aspiration.Normal oral and pharyngeal phase. Esophagus: Small type I hiatal hernia. There is a focal smooth, circumferential narrowing of the distal esophagus, with the caliber narrows to 0.9 cm, measuring up to 0.9 cm in length, resulting in delayed passage of the barium tablet probably representing a short segment stricture. Barium tablet ultimately passed into the stomach with additional fluid and contrast. No mucosal lesions. No evidence of gastroesophageal reflux. 13mm barium tablet passes readily into the stomach. Stomach and duodenum: Grossly normal. IMPRESSION: Probable short segment, smooth stricture within the distal esophagus just above a small type I hiatal hernia resulting in delayed passage of the barium tablet. Consider endoscopy. WSN: [id number] Ordering Physician: Yvrose Xie Dictated By: Juan Valladares MD Dictated Date/Time: 12/16/23 10:34 a Reviewed By: Juan Valladares MD Signed By: Juan Valladares MD Signed Date/Time: 12/16/23 10:34 am Transcribed By: MIRANDA Transcribed Date/Time: 12/16/23 10:00 am * Exam Date Time Procedure Performing Provider Status 12/15/23 3:03 PM Abdomen AP Salma Daniels; Lynne (Keisha ified) Notes: (Abdomen AP) Reason For Exam: Distention RESULT: XR Abdomen AP XR Abdomen AP 1 view Reason: Distention; Clinical Question(s): Obstruction COMPARISON: CT abdomen/pelvis with intravenous contrast-12/14/2023. FINDINGS: Large bowel loops are dilated up to 7.5 cm. Mild-moderate scattered stool. No definite evidence of pneumoperitoneum on this radiograph performed with supine technique. No organomegaly or masses. No acute bone findings. IMPRESSION: Gas-distended loop of dilated large bowel, measuring up to 9.0 cm. I have personally reviewed the images and I agree with this report. WSN: [id number] Ordering Physician: Yvrose Xie Dictated By: David Da Silva MD Dictated Date/Time: 12/15/23 3:57 pm Reviewed By: Anatoly Price MD, V Signed By: Anatoly Price MD, V Signed Date/Time: 12/15/23 4:02 pm Transcribed By: MIRANDA Transcribed Date/Time: 12/15/23 3:50 pm * Exam Date Time Procedure Performing Provider Status 12/14/23 12:[address] Abd/Pelvis W/ IV Contrast Only Logan , Cathi; Auth (Verified) Notes: (CT Abd/Pelvis W/ IV Contrast Only) Reason For Exam: Epigastric pain;Other: RESULT: CT Abd/Pelvis W/ IV Contrast Only CT Abd/Pelvis W/ IV Contrast Only Hx of Present Illness: pt c o epigastric pain and cramping x 3 weeks. Here previously with constipation. Left earlier today AMA. Unable to return to detox unless medically cleared.; Reason: Other:; Epigastric pain; Clinical Question(s): Pancreatitis; Order Comment: Patient unable to tolerate PO cont rast. TECHNIQUE: Spiral CT through the abdomen and pelvis with IV contrast formatted in 3 planes. 75 cc of Omnipaque 300 was administered intravenously. This study was performed without oral contrast. Weight-based protocol using automatic tube modulation was used to optimize exposure parameters. CTDIvol Body: 12.70 mGy, DLP Body: 649 mGy*cm. COMPARISON: CT enterography 12/09/2023 FINDINGS: Harm Reduction Worker View Findings, Lines and Tubes: None. Visualized Chest: Lung bases are clear. No pleural effusion. The heart is normal in size. No pericardial effusion. Diaphragm: Normal. Liver: Normal. Gallbladder: No CT evidence of gallbladder pathology. Bile ducts: No biliary ductal dilation. Spleen: Top normal size. Pancreas: Normal. Adrenal glands: Normal. Kidneys and ureters: No hydronephrosis or suspicious masses. 2 mm nonobstructing calculus in the upper pole of the right kidney. Bladder: Normal. Reproductive organs: Anteverted uterus. 3.1 cm simple appearing right ovarian cyst, not significantly changed since the prior exam. Few smaller left ovarian follicles. No suspicious features. Stomach, small bowel, and large bowel: Stomach, small bowel and large bowel are normal in caliber. No evidence of bowel obstruction. Liquid stool in the colon. Scattered air-fluid levels in small bowel loops. Appendix: Normal. Peritoneum and retroperitoneum: No ascites or pneumoperitoneum. No omental or mesenteric lesions. Lymph nodes: No enlarged lymph nodes. Blood vessels: Mild vascular calcifications but no aneurysm. No evidence of venous thrombosis. Prominent left parametrial vessels with a mildly dilated left gonadal vein, unchanged. Abdominal and pelvic wall: Very small fat-containing umbilical hernia. Bones: No acute abnormality. IMPRESSION: 1. Liquid stool within the colon with scattered air-fluid levels in the small bowel. This appearance is nonspecific though may be related to enteritis in the appropriate clinical setting. No other acute process in the abdomen or pelvis. 2. Right-sided 2 mm nonobstructing renal calculus A similar preliminary report was provided by Grover. WSN: [id number] Ordering Physician: Abhijit Avalos Dictated By: Maikol Hassan MD Dictated Date/Time: 12/14/23 8:51 am Reviewed By: Maikol Hassan MD Signed By: Maikol Hassan MD Signed Date/Time: 12/14/23 8:51 am Transcribed By: MIRANDA Transcribed Date/Time: 12/14/23 8:36 am Vital Signs Most recent to oldest [Reference Range]: 1 2 3 Height 156 cm (12/18/23 7:23 AM) 156 cm (12/18/23 3:17 AM) 156 cm (12/17/23 11:09 PM) Weight 62.4 kg (12/17/23 12:53 PM) 62.4 kg (12/14/23 4:34 AM) 62.4 kg (12/14/23 4:00 AM) Oxygen Saturation [94-100 %] 100 % (12/18/23 7:23 AM) 100 % (12/18/23 3:17 AM) 100 % (12/17/23 11:09 PM) Pulse Rate [55-90 bpm] 78 bpm (12/18/23 7:23 AM) 79 bpm (12/18/23 3:17 AM) 77 bpm (12/17/23 11:09 PM) Body Mass Index [18.5-24.99 kg/m2] 25.64 kg/m2 *H* (12/17/23 12:53 PM) 25.64 kg/m2 *H* (12/14/23 4:34 AM) 25.64 kg/m2 *H* (12/14/23 4:00 AM) Blood Pressure [90-138/55-84 mm Hg] 116/80mm Hg (12/18/23 8:12 AM) 116/80mm Hg (12/18/23 7:23 AM) 124/77mm Hg (12/18/23 3:17 AM) Respiratory Rate [16-30 br/min] 18 br/min (12/18/23 9:12 AM) 16 br/min (12/18/23 7:23 AM) 18 br/min (12/18/23 3:17 AM) Temperature [96.8-100.4 DegF] 98.1 DegF (12/18/23 7:23 AM) 97.8 DegF (12/18/23 3:17 AM) 97.7 DegF (12/17/23 11:09 PM) Liters per Minute 6 L/min (12/17/23 2:50 PM) 6 L/min (12/17/23 2:45 PM) 6 L/min (12/17/23 2:40 PM) Mode of Delivery (Oxygen) Room air (12/18/23 7:23 AM) Room air (12/18/23 3:17 AM) Room air (12/17/23 11:09 PM) Blood pressure sites Arm, right (12/18/23 7:23 AM) Arm, right (12/18/23 3:17 AM) Arm, right (12/17/23 11:09 PM) Temperature Route Oral (12/18/23 7:23 AM) Oral (12/18/23 3:17 AM) Oral (12/17/23 11:09 PM) Dry Weight 63 kg (12/17/23 12:53 PM) 62.4 kg (12/14/23 4:34 AM) 63.1 kg (12/14/23 2:14 AM) Weight Obtained Via Bed scale (12/16/23 8:08 AM) Bed scale (12/14/23 4:34 AM) Bed scale (12/14/23 4:00 AM) Social History Social History Type Response Smoking Status 5-9 cigarettes (betw een 1/4 to 1/2 pack)/day in last 30 days; Interested in cessation: No; Tobacco user in household: Yes entered on: 12/14/23 Sex Clinical Note * Event Display: GG EGD Please click on pdf link to open report Admission evaluation note * Ingrid CRANE, Alejandra Rashid: PERFORM, MODIFY, MODIFY, MODIFY, MODIFY, MODIFY, MODIFY, MODIFY Event Display: Admission Note Authored Date: Patient: ??LASHANDA RICHTER ? Age:??43 Years?Sex:??Female?:??1980?? History of Present Illness 43-year-old female with past medical history of alcohol abuse, cocaine abuse, benzodiazepine abuse,opiate abuse, depression, anxiety, PTSD, GERD who presents to the emergency department with abdominal pain ?Pre-Hospital course: ?-Patient reported progressively worsening epigastric pain, 04/05, occasionally radiates to the back so she presented to the ED for further evaluation ?-Patient denied fever/chills, chest pain, palpitations, presyncope/syncope,?? urinary symptoms, weight gain, lower extremity edema, or motor/sensory deficits. ?ED course: ?On presentation to the ED vitals are stable Labs are significant for normal CBC, normal electrolytes, lipase 162 CT abd/pelvis Liquid stool throughout the colon with mild gaseous distension of the colon and minimal distension of few small bowel loops with air-fluid levels, appearances may represent enteritis. No definite bowel obstruction. In the ED patient received Maalox, IV fluids Patient be admitted for possible pancreatitis, enteritis Review of Systems A full review of systems was completed and is otherwise negative except as mentioned in history of present illness.?? Objective Vital Signs?? Temperature: 98.9 DegF (12/14/23 02:14:00) Temperature Route: Temporal (12/14/23 02:14:00) Pulse Rate: 80 bpm (12/14/23 02:14:00) Respiratory Rate: 18 br/min (12/14/23 02:14:00) Systolic Blood Pressure: 134 mm Hg (12/14/23 02:14:00) Diastolic Blood Pressure:??95 mm Hg??High (12/14/23 02:14:00) Mean Arterial Pressure: 108 mm Hg (12/14/23 02:14:00) Pulse Pressure: 39 mm Hg (12/14/23 02:14:00) Oxygen Saturation: 97 % (12/14/23 02:14:00) Mode of Delivery (Oxygen): Room air (12/14/23 02:14:00) ? Physical Exam ?General: AAOx3, in no acute distress ?Neuro: CN 2-12 grossly intact, motor strength 5/5 in all extremities, no sensory deficits?HEENT: EOMI, PERRL, mouth/nose/pharynx WNL ?Neck: Supple, no LAD, JVD not congested ?Heart: Normal S1/S2, RRR, no MRGs ?Lungs: CTA b/l, no rales, rhonchi, wheezing or rubs ?Abdomen: +BS, soft, + epigastric pain .non Distended. ?Extremities: Warm, no edema b/l. ?Musculoskeletal:??Joints (no swelling, denies tenderness). ? Assessment/Plan 43-year-old female with past medical history of alcohol abuse, cocaine abuse, benzodiazepine abuse,opiate abuse, depression, anxiety, PTSD, GERD who presents to the emergency department with abdominal pain ? Pancreatitis (K85.90):??- enteritis: -Patient reported progressively worsening epigastric pain, 7/10, occasionally radiates to the back so she presented to the ED for further evaluation On presentation to the ED vitals are stable Labs are significant for normal CBC, normal electrolytes, lipase 162 CT abd/pelvis Liquid stool throughout the colon with mild gaseous distension of the colon and minimal distension of few small bowel loops with air-fluid levels, appearances may represent enteritis. No definite bowel obstruction. In the ED patient received Maalox, IV fluids ?? plan: As needed Zofran, Dilaudid Gentle hydration Clear liquid diet for now,??advance diet as tolerated ? chronic medical conditions: Bipolar disorder, anxiety, depression,??PTSD: ??clonidine, doxazosin, hydroxyzine, clonazepam Hypothyroidism: Levothyroxine GERD: PPI ?QM: ?Code status:full ?DVT prophylaxis:??Pneumoboots ?Diet:clear liquid ? Histories Allergies Allergies ?(Active and Proposed Allergies [...] Dilation and curettage: 2009 Carpal tunnel: 1996 [place] Teeth extraction ? Social History Alcohol Details:??Use: [...] tablet)?1?tab(s)?1?Milligram?By Mouth?4 times a day?as needed?for anxiety Nicotine (nicotine 4 mg oral transmucosal gum)?4?Milligram?Chew?Every hour?as needed?Other?Nicotine Cravings Nicotine (Nicoderm C-Q Clear 21 mg/24 hr transdermal film, extended release)?1?patch(es)?Topically?Daily Olanzapine (olanzapine 2.5 mg oral tablet)?2.5?Milligram?1?tablet?TAKE 1 TABLET BY MOUTH TWICE A DAY NEEDED Polyethylene Glycol 3350 (GaviLAX oral powder for reconstitution)?17?gram?By Mouth?Daily?Hold for diarrhea Quetiapine (Seroquel)?300?Milligram?By Mouth?Daily at bedtime Quetiapine (SEROquel 100 mg oral tablet)?100?Milligram?1?tablet?By Mouth?3 times a day Senna (senna 187 mg oral tablet)?1?tab(s)?8.6?Milligram?By Mouth?2 times a day?Hold for diarrhea Trazodone (traZODone 50 mg oral tablet)?2 tablets?By Mouth?Daily at bedtime ? Results Recent Labs BLOOD COUNT & DIFF WBC 8.5 k/mm3 ()?? 12/13/2023 15:31 RBC 4.44 m/mm3 ()?? 12/13/2023 15:31 Hgb 13.2 Gm/dL ()?? 12/13/2023 15:31 Hct 38.9 % ()?? 12/13/2023 15:31 MCV 87.6 femtoliters ()?? 12/13/2023 15:31 MCH 29.7 pg ()?? 12/13/2023 15:31 MCHC 33.9 g/dL ()?? 12/13/2023 15:31 Platelet Count 213 k/mm3 ()?? 12/13/2023 15:31 RDW-SD 44.5 femtoliters ()?? 12/13/2023 15:31 MPV 10.9 femtoliters ()?? 12/13/2023 15:31 Nucleated RBC (Automated) 0.0 #/100 WBC'S ()?? 12/13/2023 15:31 Abs. NRBC 0.0 k/mm3 ()?? 12/13/2023 15:31 Abs. Neut 5.3 k/mm3 ()?? 12/13/2023 15:31 Abs. Lymph 2.3 k/mm3 ()?? 12/13/2023 15:31 Abs. [place] 0.7 k/mm3 ()?? 12/13/2023 15:31 Abs. Eo 0.2 k/mm3 ()?? 12/13/2023 15:31 Abs. Baso 0.1 k/mm3 ()?? 12/13/2023 15:31 Neut % 62.0 % ()?? 12/13/2023 15:31 Lymph % 26.8 % ()?? 12/13/2023 15:31 [place] % 7.7 % ()?? 12/13/2023 15:31 Eos % 2.3 % ()?? 12/13/2023 15:31 Baso % 0.7 % ()?? 12/13/2023 15:31 Imm Gran 0.5 % ()?? 12/13/2023 15:31 Abs. Imm Gran 0.0 k/mm3 ()?? 12/13/2023 15:31 ?? CHEM GENERAL Sodium 139 mmol/L ()?? 12/13/2023 15:31 Potassium 5.0 mmol/L ()?? 12/13/2023 15:31 Chloride 105 mmol/L ()?? 12/13/2023 15:31 Bicarbonate Level 24 mmol/L ()?? 12/13/2023 15:31 Anion Gap 10 ()?? 12/13/2023 15:31 Glucose Level 102 mg/dL (High)?? 12/13/2023 15:31 BUN 11 mg/dL ()?? 12/13/2023 15:31 Creatinine-Blood 0.8 mg/dL ()?? 12/13/2023 15:31 Estimated GFR Creatinine 91 ML/MIN/1.73 M2 ()?? 12/13/2023 15:31 Calcium 9.0 mg/dL ()?? 12/13/2023 15:31 Protein, Total 6.9 Gm/dL ()?? 12/13/2023 15:31 Albumin 4.5 Gm/dL ()?? 12/13/2023 15:31 AG Ratio 1.9 ()?? 12/13/2023 15:31 Alkaline Phosphatase 75 units/L ()?? 12/13/2023 15:31 Lipase 162 units/L (High)?? 12/13/2023 15:31 AST (SGOT) 23 units/L ()?? 12/13/2023 15:31 ALT (SGPT) 38 units/L (High)?? 12/13/2023 15:31 Bilirubin, Total 0.2 mg/dL ()?? 12/13/2023 15:31 Lactate 1.0 mmol/L ()?? 12/13/2023 15:31 ?? HEME OTHER Hold Blue Top SPECIMEN DISCARDED AFTER 4 HOURS. ()?? 12/13/2023 15:31 ?? MISC. CHEMISTRY Hold Gel Top SPECIMEN DISCARDED AFTER 1 WEEK ()?? 12/13/2023 15:31 ?? UA/URINALYSIS Appear/Color, Urine COLORLESS ()?? 12/13/2023 15:43 Clarity CLEAR (N)?? 12/13/2023 15:43 Specific [place], Urine <1.005 ()?? 12/13/2023 15:43 pH, Urine 5.5 ()?? 12/13/2023 15:43 Albumin, Urine NEGATIVE (N)?? 12/13/2023 15:43 Glucose, Urine NEGATIVE (N)?? 12/13/2023 15:43 Ketones, Urine NEGATIVE (N)?? 12/13/2023 15:43 Bilirubin, Urine NEGATIVE (N)?? 12/13/2023 15:43 Hemoglobin, Urine NEGATIVE (N)?? 12/13/2023 15:43 Nitrite, Urine NEGATIVE (N)?? 12/13/2023 15:43 Leukocyte, Urine NEGATIVE (N)?? 12/13/2023 15:43 Urobilinogen NORMAL mg/dL (N)?? 12/13/2023 15:43 Hold Urine Culture Testing available 48 hours from time of collection. ()?? 12/13/2023 15:43 ?? URINE OTHER Urine, NEGATIVE (N)?? 12/13/2023 15:43 Est Creatinine Clearance 69.21 mL/min ()?? 12/13/2023 16:07 ? * David CRANE, Ghassan: PERFORM Event Display: Admission Note Authored Date: Seen and assessed this morning Patient admitted due to possible pancreatitis and enteritis Continue pain medications Continue IVFs Her med-rec was completed Advanced diet to low fat. If symptoms do not improve we can consider GI eval Repeat labs ordered for tomorrow EKG study * Event Display: ECG 12-Lead Authored Date: Please click on pdf link to open report * Event Display: ECG 12-Lead Authored Date: Ventricular Rate: 75 BPM Atrial Rate: 75 BPM P-R Interval: 132 ms QRS Duration: 84 ms Q-T Interval: 406 ms QTC Calculation(Bazett): 453 ms P [place]: 79 degrees R [place]: 80 degrees T [place]: 57 degrees Normal sinus rhythm Normal ECG When compared with ECG of 05-OCT-2023 20:33, No significant change was found Confirmed by Josué Medel ([id number]) on 12/14/2023 4:00:56 PM [place]: Josué Medel [facility] Progress note * Tricia Elise RN: VERIFY, PERFORM, SIGN Event Display: Progress Note Hospital Authored Date: Patient: LASHANDA RICHTER Age: 43 years Sex: Female : 1980 Associated Diagnoses: None Author: Tricia Elise RN Findings Problem Related to Alteration in Gastrointestinal : Alteration in Gastrointestinal Func/new 12/17/2023 23:00 EDT Alteration in GI status Related to Pancreatitis Goals & Outcomes, Gastrointestinal Establish a regular pattern of elimination for pt, Nutritional intake is adequate for metabolic needs, Pt will achieve normal/improved fluid balance, Pt will have a bowel movement prior to discharge, Pt will maintain adequate GI function appropriate for pt, Ptwill maintain normal elimination patterns, Pt will resume/maintain adequate hemodynamic status, Pt w ill tolerate age appropriate diet prior to discharge Interventions, Gastrointestinal Assess/monitor abdomen for distention, tenderness, Assess/monitor number of bowel movements, Assess/monitor pt for nausea, vomiting, Assess/monitor effects of re-hydration, Assess/monitor intake & output, Assess if pt tolerating diet BH Goals/Interventions, Gastrointestinal Yes Gastrointestinal, Problem Start 12/14/2023 5:39 Reviewed plan with, Gastrointestinal Patient Patient Progression, Gastrointestinal Pt progressing according to plan . Nursing Data Vital Signs : VITAL SIGNS SECTION 12/18/2023 7:23 EDT Temperature 98.1 DegF Temperature Route Oral Pulse Rate 78 bpm Respiratory Rate 16 br/min Systolic Blood Pressure 116 mm Hg Diastolic Blood Pressure 80 mm Hg Blood pressure sites Arm, right Mean Arterial Pressure 92 mm Hg Pulse Pressure 36 mm Hg Oxygen Saturation 100 % Mode of Delivery (Oxygen) Room air . Narrative/Incidental pt is a+ox 3, vss, afebrile. pt appears in no acute distress, c/o of pain 8/10, diffused throughoutabdomen. pt endorses little BM movement this admission, given prn MOM prior to d/c, prns utilized with minimal effect for pain, excellent appettite, plans to d/c to [facility]. This curriculum writer completed d/c paperwork, curriculum writer attempted to give pt education piece prior to calling nurse to nurse at [facility], observed patient absent from room. case management made aware, Quan to contact [facility] to report patient absence as patient is section 35. IV removed prior to elopment, tip intact. Discharge Information Case Management Discharge Plan : Case Management Discharge Plan Data 12/13/2023 19:59 EDT Discharge Level of Care at Discharge Home/Intermediate/Foster Care * Jaya Chavez RN: PERFORM, SIGN, VERIFY Event Display: Progress Note Hospital Authored Date: Patient: LASHANDA RICHTER Age: 43 years Sex: Female : 1980 Associated Diagnoses: None Author: Scott VALERIO, Jaya Findings Problem Related to Alteration in Gastrointestinal : Alteration in Gastrointestinal Func/new 12/17/2023 23:00 EDT Alteration in GI status Related to Pancreatitis Goals & Outcomes, Gastrointestinal Establish a regular pattern of elimination for pt, Nutritional intake is adequate for metabolic needs, Pt will achieve normal/improved fluid balance, Pt will have a bowel movement prior to discharge, Pt will maintain adequate GI function appropriate for pt, Ptwill maintain normal elimination patterns, Pt will resume/maintain adequate hemodynamic status, Pt w ill tolerate age appropriate diet prior to discharge Interventions, Gastrointestinal Assess/monitor abdomen for distention, tenderness, Assess/monitor number of bowel movements, Assess/monitor pt for nausea, vomiting, Assess/monitor effects of re-hydration, Assess/monitor intake & output, Assess if pt tolerating diet BH Goals/Interventions, Gastrointestinal Yes Gastrointestinal, Problem Start 12/14/2023 5:39 Reviewed plan with, Gastrointestinal Patient Patient Progression, Gastrointestinal Pt progressing according to plan . Nursing Data Gastrointestinal Data. : Gastrointestinal Data. 12/17/2023 23:44 EDT Gastrointestinal Symptoms Other: epigastric pain Abdomen Round, Semi-firm Bowel Sounds LUQ Present Bowel Sounds RUQ Present Bowel Sounds LLQ Present Bowel Sounds RLQ Present Last Bowel Movement 12/17/2023 GI WNL except . Vital Signs : VITAL SIGNS SECTION 12/17/2023 23:09 EDT Temperature 97.7 DegF Temperature Route Oral Pulse Rate 77 bpm Respiratory Rate 18 br/min Systolic Blood Pressure 102 mm Hg Diastolic Blood Pressure 75 mm Hg Blood pressure sites Arm, right Mean Arterial Pressure 84 mm Hg Pulse Pressure 27 mm Hg Oxygen Saturation 100 % Mode of Delivery (Oxygen) Room air . Evaluation Handover report received from previous IMAN Winkler. care assumed at 2300. pt A&O x 4, drowsy, and anxious. continues to report epigastric pain /10. abdomen round, semi-firm and non tender with palpation. + bowel sounds. BM x 1 overnight. asked for dilaudid x 1, reviewed ordered pain medications, dosing, and timing. pt verbalized frustration but stated understanding. tolerating diet without compl ication. ambulating in hallway x 2 this shift. reporting severe anxiety however noted to be sleeping most of the night. PRNs administered this shift 2253 - lorazepam falls prevention protocol in place. bed in low/locked position. call fox within reach. plan of care ongoing. potential for discharge back to detox program today.. * Cathi Chadwick RN: PERFORM, SIGN, VERIFY Event Display: Progress Note Hospital Authored Date: Patient: LASHANDA RICHTER Age: 43 years Sex: Female : 1980 Associated Diagnoses: None Author: Cathi Chadwick RN Findings Narrative/Incidental [id number] Pt sleeping at start of shift. Regular unlabored respirations. Later she awoke for vitals/meds. Reported 10/10 pain in epigastric area. She was inquiring whether or not the MD had ordered Dilaudid. Pt informed current plan is to avoid narcotics, no Dilaudid ordered. Advised patient she could get Tramadol at this time, she was agreeable. Pt reporting all pain is in epigastric area. She denies any nausea. Actually requested several drinks and snacks this evening and tolerated those well. +BSx4, pushed firmly with stethoscope on auscultation, no guarding of abdomen by patient, no grimacing to indicate distress with palpation. Requested Ativan this evening. Advised patient I would not administer IV Lorazepam concurrently with her scheduled po Clonazepam, she was understanding. Encouraged patient to let nursing know if she had increased anxiety. Independently ambulatory, steady gait. No complaints with voiding. Call light kept within reach. . Discharge Information Case Management Discharge Plan : Case Management Discharge Plan Data 12/13/2023 19:59 EDT Discharge Level of Care at Discharge Home/Intermediate/Foster Care Consult note * Devante CRANE, Israel Brooks: PERFORM Event Display: Consultation Note Authored Date: Patient: ??LASHANDA RICHTER ? Age:??43 Years?Sex:??Female?:??1980?? Referrring Provider Not on Staff, Referring MD History of Present Illness This is a 43-year-old female with past medical history of alcohol abuse, cocaine abuse, benzodiazepine abuse, opiate abuse, depression, anxiety, PTSD, GERD who presents to the emergency department with abdominal pain.? Patient states that she been having upper abdominal discomfort for several weeks with increasing??distention, bloating when??discomfort throughout her entire abdomen.?? States she has been only having small??bowel movements but has not had significant decrease in her appetite.? While being in the hospital she continues to receive??Dilaudid. In the ED CT abdomen / pelvis with IV contrast only shows distended small bowel and colon without transition point. AXR yest:??Gas-distended loop of dilated large bowel, measuring up to 9.0 cm. ?? She underwent a colonoscopy??on??12/08/2023 which was unremarkable. A CT scan enterography done on 12/09/2023 was negative??so small bowel obstruction??inflammation??orobstruction. ? She received 2 doses of 4 L of GoLytely??with??appropriate bowel movements.?? She mentions that she had been passing bowel movements but not passing gas. Review of Systems as per h and p on admission otherwise neg or noncontributoory Physical Exam Vitals & Measurements T:??97.7?F?? TMIN:??97.7?F?? TMAX:??98.8?F?? HR:??78??(Peripheral)?? RR:??16?? BP:??102/57?? SpO2:??97%?? Constitutional: Alert, in no distress. Mental Status: Oriented to person, place and time. Head: Normocephalic. Neck: Supple, Full range of motion. Respiratory: Clear to auscultation. No wheezing, rales or rhonchi. Cardiovascular: S1 S2 regular. No murmurs, rubs or gallops. Gastrointestinal: Abdomen soft,?? epigastric tender, distended. Normal bowel sounds. No pulsatile mass. No hepatosplenomegaly. Neurologic: Moves all extremities spontaneously. Skin: No rashes or lesions. No petechiae or purpura.?? Musculoskeletal: No cyanosis or clubbing. No gross deformities. Normal range of motion. Psychiatric: Normal mood and affect Assessment/Plan This is a 43-year-old woman on Dilaudid??for abdominal pain??who has abdominal distention.?? This is likely due to??opiate induced??constipation. ?? She may have an underlying motility disorder however in the setting of opiate use it is difficult to diagnose this.??with ?? There is no evidence for obstructive lesions on both the CT enterography??and??colonoscopy. Neither there is evidence for acute pancreatitis. ?? Recommendations Minimize or stop the use of Dilaudid??and other constipating medications. I will recommend a rectal tube??for decompression. Continue current management ?? Plan was discussed with the patient [...] Time Spent I personally spent a total of??25 minutes, including both [id number] and [id number]-face time onthe date of the encounter, addressing [...] esophageal dilator (2015)???Dilation and curettage (2009)???Carpal tunnel (1996)???[place] Teeth extraction Medications Inpatient clonazePAM 1 mg oral tablet, 1 mg, By Mouth, 4 times a day cloNIDine 0.1 mg oral tablet, 0.1 mg, By Mouth, 4 times a day doxazosin 2 mg oral tablet, 2 mg, By Mouth, 2 times a day hydrOXYzine pamoate 25 mg oral capsule, 50 mg, By Mouth, 4 times a day, PRN levothyroxine 0.025 mg oral tablet, 50 mcg, By Mouth, Daily LORazepam 1 mg oral tablet, 1 mg, By Mouth, 4 times a day, PRN MiraLax Powder, 17 Gm= 1 pack/packet, By Mouth, Daily, PRN NaCL 0.9% 1,000 mL, 1000 mL, IV Infusion Nicotine Gum, 2 mg, Chew, Every hour, PRN Nicotine Topical, 21 mg, Topically, Daily olanzapine 2.5 mg oral tablet, 2.5 mg, By Mouth, 2 times a day, PRN pantoprazole 40 mg oral delayed release tablet, 40 mg, By Mouth, Daily Remove Patch, 1 each, Topically, Daily, PRN SEROquel 100 mg oral tablet, 100 mg, By Mouth, 3 times a day SEROquel 100 mg oral tablet, 300 mg, By Mouth, Daily at bedtime Sertraline Tablet, 50 mg, By Mouth, Daily Simethicone Tablet, 160 mg, Chew, 3 times a day, PRN Toradol Inj, 15 mg= 0.5 mL, IV Push Slowly, Every 6 hours, PRN Trazodone Tablet, 100 mg, By Mouth, Daily at bedtime Tums 500 mg oral tablet, chewable, 1000 mg= 2 tablet, Chew, Every 4 hours, PRN Tylenol 325 mg oral tablet, 650 mg, By Mouth, Every 4 hours, PRN Zofran Inj, 4 mg, IV Push, Every 6 hours, PRN Home Ativan 0.5 mg oral tablet, 0.5 mg= 1 tablet, By Mouth, 4 times a day, PRN Ativan 1 mg oral tablet, 1 mg= 1 tablet, By Mouth, 4 times a day, PRN cloNIDine 0.1 mg oral tablet, 0.1 mg, By Mouth, 4 times a day Colace sodium 100 mg oral capsule, 100 mg= 1 capsule, By Mouth, 2 times a day doxazosin 2 mg oral tablet, 2 mg= 1 tablet, By Mouth, 2 times a day Gas-X Extra Strength, 180 mg, By Mouth, 2 times a day, PRN hydrOXYzine pamoate 50 mg oral capsule, 50 mg= 1 capsule, By Mouth, 4 times a day, PRN KlonoPIN 1 mg oral tablet, 1 mg= 1 tablet, By Mouth, Daily levothyroxine 0.025 mg oral tablet, 50 mcg, By Mouth, Daily Melatonin, 5 mg, By Mouth, Daily at bedtime, PRN MiraLax oral powder for reconstitution, 17 Gm, By Mouth, Daily Nicoderm C-Q Clear 21 mg/24 hr transdermal film, extended release, 1 patch, Topically, Daily nicotine 4 mg oral transmucosal gum, 4 mg, Chew, Every hour, PRN olanzapine 2.5 mg oral tablet, 2.5 mg= 1 tablet senna 187 mg oral tablet, 8.6 mg= 1 tablet, By Mouth, 2 times a day Seroquel, 300 mg, By Mouth, Daily at bedtime SEROquel 100 mg oral tablet, 100 mg= 1 tablet, By Mouth, 3 times a day traZODone 50 mg oral tablet, 2 tablets, By Mouth, Daily at bedtime Zoloft 50 mg oral tablet, 50 mg= 1 tablet, By Mouth, Daily Allergies Mold??(HEADACHE, BREATHING ISSUES) Social History Alcohol Use: not currently. Electronic Cigarette/Vaping Electronic Cigarette Use: Never. Previous Treatment: None. Employment/School Status: Disabled. Exercise Regular exercise: Yes. Exercise type: Walking. Home/Environment Living situation: Home/Independent. Lives with: Spouse. Nutrition/Health Diet: Regular. Sleeping concerns: No. Sexual Sexually involved in last 6 months: Yes. Gender of partner(s): Male. Substance Abuse Use: Past. Type: Cocaine, Marijuana. Tobacco Use: 5-9 cigarettes (between 1/4 to 1/2 pack)/day in last 30 days. Interested in cessation: No. Tobacco user in household: Yes. Family History Anxiety 11-JUL-2016 02:49:49<$>: Mother. Depression: Mother. Drug used: Mother and Father. Hyperlipidemia: Mother. Skin cancer: Mother. ms: Mother. Note * Tricia Elise RN: PERFORM Event Display: Discharge/Transfer Note Hospital Authored Date: Nursing Discharge Note Entered On: 12/18/2023 10:12 EDT Performed On: 12/18/2023 10:11 EDT by Tricia Elise RN Nursing Discharge Note 2 Patient Left Unit Via : Ambulatory Patient Accompanied Off Unit with : Responsible adult, Other: [facility] DC Instructions Provided & Signed by Pt : Unable Patient Understands D/C Instructions : Unable Verbalization of Discharge Plan Comments : discharge instructions, including medications reviewed with [facility] staff via phone, see nursing note Patient Instructions Discharge Signed : Yes Did Pt have Specialty Bed or Wound Vac : No Tricia Elise RN - 12/18/2023 10:11 EDT * Anne-Marie CRANE, Tea: PERFORM, MODIFY, MODIFY Event Display: Discharge/Transfer Note Hospital Authored Date: Patient: ??LASHANDA RICHTER ? Age:??43 Years?Sex:??Female?:??1980?? Patient Information [place] [facility] [place] Primary Care Physician: Adeola Cassidy NP Admit Date/Time: 12/14/23 02:29 Discharge Disposition Discharge Disposition: ?? Discharge Diagnosis Pancreatitis (K85.90) -Ruled out. Pseudo -obstruction of bowel. Suspected??motility disorder of bowels. Anxiety.?? Alcohol use disorder Cocaine abuse ?? _ Discharge Medications Clonidine (cloNIDine 0.1 mg oral tablet)?0.1?Milligram?By Mouth?4 times a day Docusate (Colace sodium 100 mg oral capsule)?100?Milligram?1?capsule?By Mouth?2 times a day Doxazosin (doxazosin 2 mg oral tablet)?2?Milligram?1?tablet?By Mouth?2 times a day HydrOXYzine (hydrOXYzine pamoate 50 mg oral capsule)?1?capsule?50?Milligram?By Mouth?4 times a day?as needed?for anxiety Levothyroxine (levothyroxine 0.025 mg oral tablet)?50?Microgram?By Mouth?Daily Lorazepam (Ativan 0.5 mg oral tablet)?1?tab(s)?0.5?Milligram?By Mouth?4 times a day?as needed?as needed for anxiety Melatonin?5?Milligram?By Mouth?Daily at bedtime?as needed?as needed for insomnia Milk of Magnesia (Milk of Magnesia 8% oral suspension)?30?Milliliter?2.4?gram?By Mouth?Daily at bedtime?as needed?for constipation?for 30?Days Nicotine (nicotine 4 mg oral transmucosal gum)?4?Milligram?Chew?Every hour?as needed?Other?Nicotine Cravings Nicotine (Nicoderm C-Q Clear 21 mg/24 hr transdermal film, extended release)?1?patch(es)?Topically?Daily Polyethylene Glycol 3350 (MiraLax oral powder for reconstitution)?17?gram?By Mouth?Daily Quetiapine (Seroquel)?300?Milligram?By Mouth?Daily at bedtime Quetiapine (SEROquel 100 mg oral tablet)?100?Milligram?1?tablet?By Mouth?3 times a day Senna (senna 187 mg oral tablet)?2?tab(s)?17.2?Milligram?By Mouth?Daily at bedtime?for 14?Days?Hold for diarrhea Sertraline (Zoloft 50 mg oral tablet)?1?tab(s)?50?Milligram?By Mouth?Daily Simethicone (Gas-X Extra Strength)?180?Milligram?By Mouth?2 times a day?as needed?Gas Thiamine (thiamine 100 mg oral tablet)?100?Milligram?By Mouth?Daily?for 30?Days Trazodone (traZODone 50 mg oral tablet)?2 tablets?By Mouth?Daily at bedtime ? Quality Measures Tobacco Use Treatment:? Allergies Allergies ?(Active and Proposed Allergies Only) Mold? (Severity: Mild, Onset: Unknown) ?Reactions: HEADACHE, BREATHING ISSUES ? Objective Assessment and Plan Assessment:??43-year-old female with past medical history of alcohol abuse, cocaine abuse, benzodiazepine abuse, reported opiate abuse ( patient denies), depression, anxiety, PTSD, GERD who presents to the emergency department with abdominal pain. ? Abdominal pain and distention Pseudo -obstruction of bowel. Suspected??motility disorder of bowels. ??Pancreatitis (K85.90): Lipase normalized and I do not believe this is a cause of her abdominal pain. ??Enteritis was suspected on CT abdomen pelvis. See CT abdomen pelvis below ??-CT abd/pelvis ??Liquid stool throughout the colon with mild gaseous distension of the colon and minimal distension of ??few small bowel loops with air-fluid levels, appearances may represent enteritis. No definite bowel obstruction. ??-Her abdomen was distended and I obtained KUB which revealed gas-distended loop of dilated large bowel, measuring up to 9.0 cm. ??I communicated directly with entertainment manager who recommended to avoid opiates. Patient was demanding opiates. ??I explained to her on several occasions that opiates was not indicated for pain control in this case. I ordered Toradol as needed and tramadol as needed. ??I also offered her lidocaine patch which she declined. ??-Spoke with Dr. Graves as pt was requesting dilauded, she advised to use Lorazepam as needed. Patient has severe anxiety and is a heavy drinker. ??-Please note, I reviewed discharge summary by Dr. Root, she had similar admission and was discharged on 12/09/23. She was diagnosed with pseudo- obstruction , no mechanical obstruction was found with extensive w/u. ??-I walked with her myself and advised to ambulate. - She reported esophageal stricture history and I ordered barium swallow which confirmed distal esophageal stricture. Endoscopy was recommended. She had EGD 12/16 which was nonrevealing. -She is tolerating Solid diet, repeat KUB shows improvement of dilated bowel loops. -She likely has??underlying??motility disorder which??was exacerbated by opiates. Please avoid opiates.??Ambulation is strongly recommended. -She is medically cleared for discharge. Abdominal pain resolved. -I prescribed bowel regimen. ? Chronic medical conditions: ??Bipolar disorder, anxiety, depression, PTSD: Resume home meds. ??Hypothyroidism: Levothyroxine ? Vital Signs?? Temperature: 98.1 DegF (12/18/23 07:23:00) Temperature Route: Oral (12/18/23 07:23:00) Pulse Rate: 78 bpm (12/18/23 07:23:00) Heart Rate Monitored: 74 bpm (12/17/23 15:25:00) Respiratory Rate: 16 br/min (12/18/23 07:23:00) Systolic Blood Pressure: 116 mm Hg (12/18/23 08:12:00) Diastolic Blood Pressure: 80 mm Hg (12/18/23 08:12:00) Blood pressure sites: Arm, right (12/18/23 07:23:00) Mean Arterial Pressure: 92 mm Hg (12/18/23 07:23:00) Pulse Pressure: 36 mm Hg (12/18/23 07:23:00) Oxygen Saturation: 100 % (12/18/23 07:23:00) Liters per Minute: 6 L/min (12/17/23 14:50:00) Mode of Delivery (Oxygen): Room air (12/18/23 07:23:00) Early Warning Score: 0 (12/18/23 08:13:51) ? Mobility & Ambulation Level Mobility & Ambulation Level?? No qualifying data available. ?? . Physical Exam ? Constitutional: Alert, in no acute distress. Mental Status: Oriented to person, place and time. Head: Normocephalic. Eyes: Extraocular muscles intact. Ear, Nose and Throat: Oropharynx clear, mucous membranes moist.?? Neck: Supple, Full range of motion. Respiratory: Clear to auscultation, No wheezing, rales or rhonchi. Cardiovascular: S1 S2 regular.?? Gastrointestinal: Abdomen soft, mild chronic distention. Surgical Procedures Gastroscopy (EGD) Diagnostic 12/17/2023 14:19 Pending Results Add On Lab Order ordered on 12/15/2023 Pathology Tissue Request ordered on 12/18/2023 Follow-Up Appointments Added Follow Up ?Time Frame ?Comments Adeola Cassidy NP?3 to 5 days Home Health Face to Face ^[facility] Results Discharge Labs BLOOD COUNT & DIFF WBC 5.1 k/mm3 ()?? 12/17/2023 06:19 RBC 3.89 m/mm3 (Low)?? 12/17/2023 06:19 Hgb 11.5 Gm/dL (Low)?? 12/17/2023 06:19 Hct 34.1 % (Low)?? 12/17/2023 06:19 MCV 87.7 femtoliters ()?? 12/17/2023 06:19 MCH 29.6 pg ()?? 12/17/2023 06:19 MCHC 33.7 g/dL ()?? 12/17/2023 06:19 Platelet Count 169 k/mm3 ()?? 12/17/2023 06:19 RDW-SD 41.7 femtoliters ()?? 12/17/2023 06:19 MPV 11.3 femtoliters ()?? 12/17/2023 06:19 Nucleated RBC (Automated) 0.0 #/100 WBC'S ()?? 12/17/2023 06:19 Abs. NRBC 0.0 k/mm3 ()?? 12/17/2023 06:19 ?? CHEM GENERAL Sodium 140 mmol/L ()?? 12/18/2023 05:24 Potassium 4.0 mmol/L ()?? 12/18/2023 05:24 Chloride 106 mmol/L ()?? 12/18/2023 05:24 Bicarbonate Level 25 mmol/L ()?? 12/18/2023 05:24 Anion Gap 9 ()?? 12/18/2023 05:24 Glucose Level 95 mg/dL ()?? 12/18/2023 05:24 BUN 11 mg/dL ()?? 12/18/2023 05:24 Creatinine-Blood 0.8 mg/dL ()?? 12/18/2023 05:24 Estimated GFR Creatinine 91 ML/MIN/1.73 M2 ()?? 12/18/2023 05:24 Calcium 8.8 mg/dL ()?? 12/18/2023 05:24 Calcium, Ionized pH Corrected 1.11 mmol/L (Low)?? 12/14/2023 05:31 Phosphorus 3.7 mg/dL ()?? 12/15/2023 05:25 Magnesium 1.9 mg/dL ()?? 12/15/2023 05:25 Protein, Total 6.5 Gm/dL ()?? 12/14/2023 05:31 Albumin 4.2 Gm/dL ()?? 12/14/2023 05:31 Alkaline Phosphatase 71 units/L ()?? 12/14/2023 05:31 Lipase 19 units/L ()?? 12/15/2023 05:25 AST (SGOT) 22 units/L ()?? 12/14/2023 05:31 ALT (SGPT) 33 units/L ()?? 12/14/2023 05:31 Bilirubin, Total 0.3 mg/dL ()?? 12/14/2023 05:31 Bilirubin, Direct 0.1 mg/dL ()?? 12/14/2023 05:31 Bilirubin, Indirect 0.2 mg/dL ()?? 12/14/2023 05:31 ?? COAG INR 1.0 ()?? 12/15/2023 05:25 Protime (PT) 10.9 seconds ()?? 12/15/2023 05:25 ?? HEME OTHER Hold Lavender Top SPECIMEN DISCARDED AFTER 24 HOURS. ()?? 12/18/2023 05:24 ? URINE OTHER Est Creatinine Clearance 70.52 mL/min ()?? 12/17/2023 07:02 ? VIROLOGY Influenza A PCR NEGATIVE ()?? 12/14/2023 02:58 Influenza B PCR NEGATIVE ()?? 12/14/2023 02:58 RSV PCR NEGATIVE ()?? 12/14/2023 02:58 COVID-19 PCR Specimen Source NASAL ()?? 12/14/2023 02:58 COVID-19 PCR Result NEGATIVE ()?? 12/14/2023 02:58 ? Imaging(s) ?Abdomen AP ?? 12/16/2023 18:31??by Anthony Pollock MD ?FINDINGS: ? Oral contrast within the colon. No dilated small or large bowel appreciated. ?Abdomen AP ?? 12/15/2023 15:03??by Albert CRANE, Anatoly V ? IMPRESSION: ?? Gas-distended loop of dilated large bowel, measuring up to 9.0 cm. ?Esophagus Barium Swallow ?? 12/16/2023 10:07??by Blaine CRANE, Juan ?Probable short segment, smooth stricture within the distal esophagus just above a small type I hiatal hernia resulting in delayed passage of the barium tablet. Consider endoscopy. ?CT Abd/Pelvis W/ IV Contrast Only ?? 12/14/2023 00:44??by Maikol Hassan MD ?IMPRESSION: ?? 1. Liquid stool within the colon with scattered air-fluid levels in the small bowel. This appearance is nonspecific though may be related to enteritis in the appropriate clinical setting. No other acute process in the abdomen or pelvis. 2. Right-sided 2 mm nonobstructing renal calculus ? 35_ minutes spent on discharge * Tricia Elise RN: PERFORM, MODIFY Event Display: Patient Education/Instruction Authored Date: Inpatient Adult Discharge Instructions. [place] [id number] Name: LASHANDA RICHTER : 1980?? Visit: 12/14/2023 02:29?? Current Date: 12/18/2023 10:13 ?? Account: [id number]?? Inpatient Adult Discharge Instructions We would like [...] and their families. Surveys are administered by [employer] ?? If further treatment with your primary care physician or another doctor is recommended, it is important for you to keep the appointment. Call your primary care physician or return to the Emergency Department immediately if your condition worsens, fails to improve, or new symptoms develop. If you need to find a doctor, you can call [facility] [employer] for a referral at [phone] or toll free at [phone]) or log in to [email or web address].. ?? [facility], in keeping with [facility] guidance, no longer requires face masks [...] a health care ros of your choosing. [employer] is a website that allows you to securely view your medical information including your hospital discharge summary, office visit summaries, medications and follow-up visits. You can also request appointments, renew medications, and request access to your medical information using a health care ros of your choosing, or just ask a question. You can enroll at [email or web address] or register during your next office visit. You have been discharged from [facility], Patient Care Unit: [id number]??. If you have any questions regarding these instructions, including results of studies pending, afteryou leave, please call us and we will be happy to assist you 19/04. [facility] Your Care Team Attending Physician Yvrose Xie MD?? Consulting Providers Yvrose Xie MD?? Discharging Providers Yvrose Xie MD Reason for Your Visit pancreatitis?? Your Diagnosis Abdominal pain Tests Performed Below is a partial list of the tests performed during your hospitalization. You may have had other tests and procedures not included in this list. Please discuss all test results with your provider. Basic Metabolic Panel BUN CBC COVID-19, RSV, and Flu A/B, Rapid PCR Creatinine HEPATIC FUNCTION PANEL HOLD LAVENDER TUBE INR Ionized Calcium LIPASE Lytes Magnesium Level Phosphorus Level Barium Swallow Esophagus CT Abd/Pelvis W/ IV Contrast Only KUB Add On Lab Order?? Pathology Tissue Request ()?? Primary Care Provider Adeola Cassidy NP? Advance Directive Health Care Proxy on File Yes - Health Care Proxy Discharge Vitals Temperature: 98.1 DegF Height: 156 cm Pulse Rate: 78 bpm Weight: 62.4 kg Respiratory Rate: 16 br/min Body Mass Index:??25.64 kg/m2??High Systolic Blood Pressure: 116 mm Hg Body surface area: 1.64 Diastolic Blood Pressure: 80 mm Hg ?? Oxygen Saturation: 100 % ?? Studies Pending All studies ordered during this hospital stay have been completed unless listed below. Please discuss all pending results with your provider listed above in these instructions. ?? Add On Lab Order?? Pathology Tissue Request ()?? What to do next Instructions From Your Doctor ?? Orders? 12/18/23 9:45:00 EDT?? You Need to Schedule the Following Appointments Follow Up with??Khanh CARMONA, Adeola When:??Within 3 to 5 days Where[facility] [address] [place] [address]- Discharge Medications LASHANDA RICHTER :1980 Visit Date:12/14/2023 Medications: Please continue your medications until treatment is completed or stopped by your provider. Medications not listed below should be discontinued. Discuss any questions related to medications with your provider. What How Much When Instructions Next Dose New Milk of Magnesia (Milk of Magnesia 8% oral suspension) 30 Milliliter Oral Daily at Bedtime as needed for for constipation Duration: 30 Days last dose today, 12/17 at 10:00 New Thiamine (thiamine 100 mg oral tablet) 100 Milligram Oral Daily Duration: 30 Days last dose today, 12/17 at 8:00 Changed Lorazepam (Ativan 0.5 mg oral tablet) 1 tab(s) Oral 4 times a day as needed for as needed for anxiety 2mg given today, 12/17 at 10:00 Changed Quetiapine (SEROquel 100 mg oral tablet) 1 tab(s) Oral 3 times a day last dose today, 12/17 at 8:00 Changed Quetiapine (Seroquel) 300 Milligram Oral Daily at Bedtime take as directed Changed Senna (senna 187 mg oral tablet) 2 tab(s) Oral Daily at Bedtime Duration: 14 Days Hold for diarrhea ?? take as directed Unchanged Clonidine (cloNIDine 0.1 mg oral tablet) 0.1 Milligram Oral 4 times a day last dose today, 12/17 at 8:00 Unchanged Docusate (Colace sodium 100 mg oral capsule) 1 capsule Oral Twice a day take as directed Unchanged Doxazosin (doxazosin 2 mg oral tablet) 1 tab(s) Oral Twice a day last dose today, 12/17 at 8:00 Unchanged HydrOXYzine (hydrOXYzine pamoate 50 mg oral capsule) 1 capsule Oral 4 times a day as needed for for anxiety take as directed last dose, 12/16 at 10:00 Unchanged Levothyroxine (levothyroxine 0.025 mg oral tablet) 50 Microgram Oral Daily last dose today, 12/17 at 05:00 Unchanged Melatonin 5 Milligram Oral Daily at Bedtime as needed for as needed for insomnia take as directed Unchanged Nicotine (Nicoderm C-Q Clear 21 mg/ 24 hr transdermal film, extended release) 1 patch(es) Topically Daily on right upper arm Unchanged Nicotine (nicotine 4 mg oral transmucosal gum) 4 Milligram Chew Every hour as needed for Other Nicotine Cravings ?? take as directed Unchanged Polyethylene Glycol 3350 (MiraLax oral powder for reconstitution) 17 gram Oral Daily take as directed Unchanged Sertraline (Zoloft 50 mg oral tablet) 1 tab(s) Oral Daily last dose today, 12/17 at 8:00 Unchanged Simethicone (Gas-X Extra Strength) 180 Milligram Oral Twice a day as needed for Gas take as directed Unchanged Trazodone (traZODone 50 mg oral tablet) 2 tablets Oral Daily at Bedtime last dose 12/16 at 21:00 ?? What How Much When Comments Stop Taking Clonazepam (KlonoPIN 1 mg oral tablet) 1 tab(s) Oral Daily Duration: 14 Days Stop Taking Olanzapine (olanzapine 2.5 mg oral tablet) 1 tab(s) TAKE 1 TABLET BY MOUTH TWICE A DAY NEEDED ?? Prescription Given During Visit Milk of Magnesia (Milk of Magnesia 8% oral suspension) - 30 mL = 2.4 Gm, By Mouth, Daily at bedtime, # 480 mL, 0 Refills?? Senna (senna 187 mg oral tablet) - 2 tablet = 17.2 mg, By Mouth, Daily at bedtime, # 28 tablet, 0 Refills, Hold for diarrhea?? Thiamine (thiamine 100 mg oral tablet) - 100 mg, By Mouth, Daily, # 30 tablet, 0 Refills?? Laboratory Results Below is a partial list of the most recent Laboratory test results done prior to this discharge. You may have had other tests and procedures not included in this list. Please discuss all test resultswith your provider. Est Creatinine Clearance - 70.52 mL/min (12/17/2023) Basic Metabolic Panel (12/18/2023) ???Sodium - 140 mmol/L???Potassium - 4.0 mmol/L???Chloride - 106 mmol/L???Bicarbonate Level - 25 mmol/L???Anion Gap - 9???Glucose Level - 95 mg/dL???BUN - 11 mg/dL???Creatinine-Blood - 0.8 mg/dL???Estimated GFR Creatinine - 91 ML/MIN/1.73 M2???Calcium - 8.8 mg/dL BUN (12/14/2023) ???BUN - 9 mg/dL CBC (12/17/2023) ???WBC - 5.1 k/mm3???RBC - 3.89 m/mm3???Hgb - 11.5 Gm/dL???Hct - 34.1 %???MCV - 87.7 femtoliters???MCH - 29.6 pg???MCHC - 33.7 g/dL???Platelet Count - 169 k/mm3???RDW-SD - 41.7 femtoliters???MPV - 11.3 femtoliters???Nucleated RBC (Automated) - 0.0 #/100 WBC'S???Abs. NRBC - 0.0 k/mm3 COVID-19, RSV, and Flu A/B, Rapid PCR (12/14/2023) ???Influenza A PCR - NEGATIVE???Influenza B PCR - NEGATIVE???RSV PCR - NEGATIVE???COVID-19 PCR Specimen Source - NASAL???COVID-19 PCR Result - NEGATIVE Creatinine (12/14/2023) ???Creatinine-Blood - 0.7 mg/dL???Estimated GFR Creatinine - 107 ML/MIN/1.73 M2 HEPATIC FUNCTION PANEL (12/14/2023) ???Protein, Total - 6.5 Gm/dL???Albumin - 4.2 Gm/dL???Alkaline Phosphatase - 71 units/L???AST (SGOT) - 22 units/L???ALT (SGPT) - 33 units/L???Bilirubin, Total - 0.3 mg/dL???Bilirubin, Direct - 0.1 mg/dL???Bilirubin, Indirect - 0.2 mg/dL HOLD LAVENDER TUBE (12/18/2023) ???Hold Lavender Top - SPECIMEN DISCARDED AFTER 24 HOURS. INR (12/15/2023) ???INR - 1.0???Protime (PT) - 10.9 seconds Ionized Calcium (12/14/2023) ???Calcium, Ionized pH Corrected - 1.11 mmol/L LIPASE (12/15/2023) ???Lipase - 19 units/L Lytes (12/14/2023) ???Sodium - 139 mmol/L???Potassium - 4.4 mmol/L???Chloride - 105 mmol/L???Bicarbonate Level - 22 mmol/L???Anion Gap - 12 Magnesium Level (12/15/2023) ???Magnesium - 1.9 mg/dL Phosphorus Level (12/15/2023) ???Phosphorus - 3.7 mg/dL Allergies (NKA means No Known Allergies) Mold??(HEADACHE, [...] Discharge Instructions. Web[employer] Ignite Patient Education - Discharge Instructions for Acute Pancreatitis?? [employer]ite Patient Education - Understanding Pancreatitis?? [employer] Patient Education - Pancreatitis?? Valuables and Belongings I fully understand and agree that [facility] accepts no responsibility for all my personal [...] Review of Valuable and Belonging List: With patient, With witness Disposition of Belongings: Other: sent with pat[facility] and [facility] staff Date for Pt to Sign Valuables/Belongings: 12/18/23 10:11:00 ?? Other Discharge Information ? Pulmonary Rehab Status?? Pulmonary Rehab Discharge Status?? Respiratory Rate: 16 br/min ? Common Emergency Awareness Tips IS [...] are strongly encouraged to quit. Please call [facility] at [phone] or [phone] ([phone]) or log in to [email or web address] for referrals to smoking cessation programs. ?? 725 Suicide & Crisis Lifeline is available 19/04 if you or someone you know needs to find a reason to keep living. By calling 338 you'll be connected to a skilled, trained counselor at a crisis center in your area. INPATIENT DISCHARGE INSTRUCTIONS SIGNATURE PAGE LASHANDA RICHTER Location:[facility] Registration Date and Time:12/14/2023 02:29 EDT Primary Care Physician: Adeola Cassidy NP, Attending Physician: Yvrose Xie MD, I LASHANDA RICHTER, have received the above patient education materials/instructions and have verbalized understanding. If ambulance or transport services are being used I further acknowledge being given a choice of service. ?? If you need to contact me, please call me at this number: . Patient/Early Childhood Name: Patient/Early Childhood Signature: Relationship to Patient: Witness Name/Signature: Date: * Tricia Elise RN: PERFORM Event Display: Patient Education Leaflets Authored Date: [id number] Discharge Instructions for Acute Pancreatitis ?? 06507 Discharge Instructions for Acute Pancreatitis You have been diagnosed with acute pancreatitis. The pancreas is an organ that makes digestive juices and hormones. Your pancreas is inflamed or swollen. Gallstones are a common cause of pancreatitis. These hard stones form in the gallbladder. The gallbladder shares a tube with the pancreas into the small intestine. If gallstones block this tube, fluid can???t leave the pancreas. The fluid backs up and causes redness and swelling (inflammation).??Alcohol use is another very common cause of pancreatitis. There are other causes. Make sure you understand the cause of your pancreatitis. Then you can try to stop it from happening again. Immediate home care ??? Find someone to drive you to appointments. Acute pancreatitis is a serious condition, and you should never drive if you have symptoms. ??? Stop drinking if your illness was caused by alcohol. o Ask your healthcare provider about alcohol abuse programs and support groups suchas Alcoholics Anonymous. o Ask your provider about prescription medicines that can help you stop drinking. o Tell your provider about the alcohol withdrawal symptoms you have when you stop drinking. This is very important. You may need close medical supervision and special medicines??when you stop drinking. This will depend on your alcohol withdrawal history.? Take your medicines exactly as directed. Don???t skip doses. ??? Eat a low-fat diet. Ask your provider for menus and other diet information. ??? Stop smoking. Smoking increases problems if you have pancreatitis. ??? Learn to take your own pulse. Keep a record of your results. Ask your provider which readings mean that you need medical attention. ?? Ongoing??care ??? Tell your provider about any medicines you are taking. Some medicines can cause this condition. ??? Before starting any new medicine, ask your provider if it will harm your pancreas. This includes any new jrez-xpf-nwtnovh medicines, vitamins, or herbal supplements. ??? Tell your pr ovider if you lose weight without dieting. ??? Be aware of symptoms that may mean your pancreatitishas come back. These symptoms include belly pain, nausea and vomiting, and fever. ??? Keep all follow-up appointments with your provider. Problems can often show up later. ??? If your pancreatitis was caused by gallstones, gallbladder removal will likely be advised. ?? Follow-up Follow up with your healthcare provider as advised. ?? When to call your healthcare provider Call your healthcare provider right away or seek immediate medical attention if you have any of thefollowing: ??? Fever??of?? 100.4?? F??( 38.0??C) or higher, or as advised by your provider ??? Chills ??? Severe pain from your upper belly to your back ??? Nausea and vomiting ??? Feel dizzy or lightheaded ??? Yellowing of your skin or eyes (jaundice) ??? Bruises on your belly or back ??? Belly swe lling and tenderness ??? Rapid pulse ??? Shallow, fast breathing ?? Last Reviewed Date: 2021 ?? [employer]. All rights reserved. This information is not intended as a substitute for professional medical care. Always follow your healthcare professional's instructions. ?? * Tricia Elise RN: PERFORM Event Display: Patient Education Leaflets Authored Date: [id number] Understanding Pancreatitis ?? 80445 Understanding Pancreatitis If your pancreas suddenly becomes irritated or inflamed, you have acute pancreatitis. Acute pancreatitis is often very painful. Emergency medical treatment is usually needed. Chronic pancreatitis is a condition where your pancreas remains inflamed. It can lead to pain and other complications.?? Symptoms of acute pancreatitis Symptoms include: ??? Severe pain in your upper belly radiating??to your back ??? Nausea and vomiting ??? Belly swelling and tenderness ??? Fever ??? Rapid pulse ??? Shallow, fast breathing ?? Treating acute pancreatitis If you have acute pancreatitis, you may be in the hospital for a few days. For part of this time, you likely won???t be allowed to eat or drink. This lets your pancreas rest and heal. If your pancreatitis is severe, you may get nutrition and fluids through a feeding tube inserted into your belly. Medicines are given to help ease pain. ?? Causes of pancreatitis Gallstones are one of the most common causes of pancreatitis. These hard stones form in the gallbladder, an organ located near the pancreas. These two organs share a passage into the small intestine called the common bile duct. But fluid can't leave the pancreas if gallstones block this duct. The fluid backs up and causes pancreatitis. Alcohol is also a very common cause of pancreatitis. Certain medicines, injury, and infection can also cause pancreatitis. Problems with the structure of the pancreas may also be a cause. There are also genetic problems that can cause pancreatitis.? If you have chronic pancreatitis If the pancreas stays inflamed for a long time, chronic pancreatitis may result. Common symptoms include diarrhea, weight loss, and belly pain. Possible complications of chronic pancreatitis include: ??? Diabetes ??? Not absorbing enough nutrients (malnutrition) ??? Pancreatic cancer (rare) ??? Chronic diarrhea ??? Chronic belly (abdominal) pain Treatment for chronic pancreatitis includes: ??? Medicines to help the pancreas work (enzymes) and to manage pain ??? Dietary changes ??? Stop smoking ??? Treatment for gallstones ??? Don't drink alcohol. The most important thing you can do is to stay away from alcohol and smoking to help manage this disease.? Last Reviewed Date: 2023 ?? [employer]. All rights reserved. This information is not intended as a substitute for professional medical care. Always follow your healthcare professional's instructions. ?? * Tricia Elise RN: PERFORM Event Display: Patient Education Leaflets Authored Date: [id number] Pancreatitis ?? [id number] Pancreatitis The pancreas is an organ in the??belly (abdomen). It secretes hormones and digestive juices (enzymes) into the stomach to aid with digestion and blood sugar levels. Pancreatitis is an inflammation ofthe pancreas. In many cases, it's caused when the duct that connects the pancreas and gallbladder is blocked by a gallstone.??Heavy alcohol use is another major cause.??Less common causes can includemedicines, trauma, certain medical procedures, viruses, and toxins. Sometimes the cause of pancreatitis can't be found.??Genetic testing is sometimes done in those cases, especially if there is a family history of pancreatic disease. Symptoms of pancreatitis include: ??? Severe abdominal pain? Nausea and vomiting ??? Severe indigestion ??? Racing heart ??? Fever If the pancreatitis becomes a chronic problem, diarrhea, chronic pain, weight loss, and poor nutrition can result. At first, pancreatitis may be treated in the hospital.??It may be diagnosed by history, exam, bloodtests, and sometimes imaging studies.?? While in the hospital, fluids and medicines can be provided. The underlying cause of the problem must also be treated to prevent further problems. If gallstones are the cause, you and your healthcare provider can discuss choices for treating them.??This oftenresults in gallbladder surgery. Sometimes another test must be done to clear the drainage ducts of a blocked gallstones.??If alcohol is the cause, talk with your healthcare provider about a program to help you stop drinking. Home care ??? Don't drink alcohol. ??? Rest in bed or sit up in a chair until you feel better. ??? Take medicines as prescribed. If you were given??an antibiotic for infection,??take it until it's gone, even if you feel better. Let your healthcare provider know if you vomit up your medicine. Tips for eating and drinking: ??? Try sipping small amounts of clear liquids often to prevent dehydration.? Your provider may advise clear liquids only for 1 or 2 days. This is to rest the pancreas. ??? When you start eating again, start with small amounts. Have small, more frequent meals rather than larger meals.??Low-fat meals are best. Fruits, vegetables, and whole grains are good choices. Stay away from fried and greasy foods. ?? Follow-up care Follow up with your healthcare provider as advised. ?? When to get medical care Call your healthcare provider right away if any of these occur: ??? Pain that continues or gets worse ??? Repeated vomiting ??? Dizziness, weakness ??? Fever of 100.4?? F (38?? C) or higher, or as advised by your provider ??? Severe muscle cramps ??? Yellowish coloring of the skin and eyes (jaundice) ?? Call 911 Call 911 if you have any of the following: ??? Vomiting blood or large amounts of blood in stool ??? Seizure ??? Loss of consciousness ?? Last Reviewed Date: 2022 ?? 4928-4245 [employer]. All rights reserved. This information is not intended as a substitute for professional medical care. Always follow your healthcare professional's instructions. ?? Patient Care team information Care Team Personnel Name: Tricia Elise RN Position: [facility] RN Member Role: Primary Care Nurse Name: Morena Mcgraw RN Position: S RN Member Role: Primary Care Nurse Name: Nat Joe RN Position: [facility] OB RN Member Role: Primary Care Nurse Name: Jo Lim RN Position: [facility] AMB Nurse Member Role: Primary Care Nurse Name: Adeola Cassidy NP Position: [facility] PCO Associate Professional Member Role: PCP Address: Address: [address] [place] [id number] [place] Name: Vivian Graham RN Position: [facility] RN Member Role: Primary Care Nurse Name: Bharathi Robles RN Position: [facility] RN Member Role: Primary Care Nurse Name: Katie Huggins RN Position: [facility] RN Member Role: Primary Care Nurse Name: Olga Alas RN Position: [facility] RN Member Role: Primary Care Nurse Care Team Related Persons Name: GRADY BEARDEN Address: home [address] [place] [address] Name: NEENA COLE Address: [employer] Address: home [address] [place] [address] Name: GRADY COLE Address: home [address] [place] [address] Name: LEEANN SUTTON Address: home [address] [place] [address] Name: LUANNE SUTTON Address: home [address] [place] [address]
== END 2024-03-21 14:01 | disposition home or self-care (01) ==
PROVIDERS: Emergency Provider Emergency Medicine
DX: F33.1 Major depressive disorder, recurrent, moderate (principal); F41.1 Generalized anxiety disorder; F14.10 Cocaine abuse, uncomplicated; F43.9 Reaction to severe stress, unspecified; Z79.899 Other long term (current) drug therapy; Z51.81 Encounter for therapeutic drug level monitoring; Z71.51 Drug abuse counseling and surveillance of drug abuser
CPT/HCPCS: 36415; 80048; 80076; 80307; 83735; 84443; 84702; 85025; 99284; S9485

== ENCOUNTER 2024-03-23 11:31 | Inpatient (IN) | payer OTHER, SELFPAY ==
--- NOTE | ~2024-03-23 | CT_ITS ---
EXAMINATION: CT abdomen pelvis wo IV con CLINICAL INFORMATION: Reason for Exam Abdominal pain, elevated LFTs COMPARISON: No prior CT available for comparison. TECHNIQUE: Multidetector volumetric imaging was performed from the superior aspect of the liver through the pubic symphysis 100 mL of Omnipaque 350 injected Sagittal and coronal reformatted images were obtained on the technologist's workstation. This CT examination was performed using dose optimization techniques as appropriate, variously including the following: *Automated exposure control *Adjustment of mA and/or kV according to patient size (this includes techniques or standardized protocols for targeted exams where dose is matched to indication/reason for exam; i.e. extremities or head) *Use of iterative reconstruction technique DLP: 683 mGy-cm FINDINGS: LOWER THORAX: Mild hazy patchy opacities at lung bases are probably poor inspiration and/or motion. HEPATOBILIARY: No focal hepatic lesions. No biliary ductal dilatation. GALLBLADDER: Gallbladder unremarkable. SPLEEN: Spleen is normal in size. PANCREAS: No focal mass or ductal dilatation. STOMACH AND GASTROINTESTINAL TRACT: Excess amount of stool in the colon suggesting constipation. Hyperdense material in the colon probably from prior CT. There is no bowel distention or thickening. No CT evidence of appendicitis. ADRENALS: No adrenal nodules. KIDNEYS/URETERS: There is a tiny 4 mm nonobstructing stone in the right kidney. There is no hydronephrosis. URINARY BLADDER: Partially decompressed. PELVIC VISCERA: Unremarkable PERITONEUM: No free air or fluid. LYMPH NODES: No lymphadenopathy. VASCULAR:Abdominal aorta normal in size, no aneurysm found. BONES, ABDOMINAL WALL AND SOFT TISSUES: Age-appropriate changes of the spine and skeletal system, no destructive osteolytic or osteosclerotic bone lesion found CT/CT abdomen pelvis wo IV con IMPRESSION: * No CT evidence of acute intra-abdominal process to explain patient's pain symptoms. * Excess amount of stool in the colon suggesting constipation. * Tiny nonobstructing stone in the right kidney.
--- NOTE | ~2024-03-23 | CT_ITS ---
EXAMINATION: CT LUMBAR SPINE WITHOUT CONTRAST CLINICAL INFORMATION: Low back pain. COMPARISON: None available. TECHNIQUE: Multidetector helical imaging acquired in the axial plane with generation of reformatted acquisitions. This CT examination was performed using dose optimization techniques as appropriate, variously including the following: *Automated exposure control *Adjustment of mA and/or kV according to patient size (this includes techniques or standardized protocols for targeted exams where dose is matched to indication/reason for exam; i.e. extremities or head) *Use of iterative reconstruction technique DLP; 357 mGy-cm FINDINGS: There are no compression fractures or significant subluxations. Mild disc space narrowing evident at the L3-L4 level with very mild anterior endplate spurring. No suspicious lytic or blastic osseous lesions are seen. The L1-L2 disc is relatively normal without central canal stenosis or foraminal narrowing. Very mild annular bulge noted at the L2-L3 level. At the L3-L4 level, there is a mild diffuse disc bulge and mild facet arthropathy slightly encroaching upon the central canal and neural foramina. At the L4-L5 level, there is a diffuse disc bulge and facet arthropathy resulting in [id number] central canal stenosis and mild foraminal narrowing. At the L5-S1 level, there is a shallow, broad-based left paracentral to left subarticular zone disc protrusion impressing upon the left S1 nerve root. Kpru-pi-[id number] facet arthropathy evident at this level as well with [id number] left foraminal narrowing. There are sclerotic changes around the sacroiliac joints with vacuum phenomenon and mild ossific spurring. Mild atherosclerotic wall calcifications of the abdominal aorta noted without aneurysmal dilatation. There are a couple of subcentimeter calculi within the right kidney with a 425 mean Hounsfield unit density of a less than 2 mm calculus in the interpolar region posteriorly. CT/CT lumbar spine wo IV con IMPRESSION: Disc bulge and facet arthropathy with [id number] central canal stenosis at the L4-L5 level. Shallow, broad-based left paracentral to left subarticular zone disc protrusion at the L5-S1 level impressing upon the left S1 nerve root. Couple of nonobstructing subcentimeter calculi in the right kidney.
--- NOTE | ~2024-03-23 | XR_ITS ---
EXAMINATION: XR LUMBOSACRAL SPINE CLINICAL INFORMATION: Low back pain. COMPARISON: None available. TECHNIQUE: Three views of the lumbosacral spine. FINDINGS: No fracture or destructive process. Vertebral body heights and disc space heights do appear preserved. SI joints symmetric. Large stool burden in the colon does obscure detail overlying the sacrum. XR/XR lumbar spine 2-3V IMPRESSION: Unremarkable examination.
[2024-03-23 11:41] VITALS: BMI 21.7
--- NOTE | 2024-03-23 11:46 | ED_ITS ---
HPI - Psych General Chief Complaint: Psychiatric Symptoms Stated Complaint: depressed states SI Time Seen by Provider: 03/23/24 11:36 Source: patient and old records reviewed Mode of arrival: ambulatory Limitations: no limitations History of Present Illness ED Provider: MAMADOU PARKER Narrative: 43 yo female with PMH of depression, anxiety, substance abuse, hypothyroidism here with c/o SI in setting of court issues yesterday has nowhere to go did not follow up with methadone clinic presents again but today has SI. MD complaint: suicidal ideation and feels depressed Onset (ago): day(s) (2) Duration: constant History of same: Yes Relieving factors: none Exacerbating factors: drug use Context: recent drug abuse and significant life stressor Associated psychiatric symptoms: depression and suicidal ideation Associated symptoms: denies other symptoms Treatments prior to arrival: none If self harm: admits thoughts of self harm Related Data Home Medications ?Medication ?Instructions ?Recorded ?Confirmed No Known Home Meds 03/20/24 03/20/24 Allergies Allergy/AdvReac Type Severity Reaction Status Date / Time No Known Allergies Allergy Verified 03/23/24 11:42 [No Known Allergies*] Review of Systems 2 Review of Systems: Constitutional : No Fever, No Chills ENT/Mouth : No Ear Pain, No Nasal Congestion, No sore throat Eyes: No Eye Pain, No Swelling, No Redness Cardiovascular : No Chest Pain, No SOB Respiratory : No Cough, No Sputum, No Dyspnea Gastrointestinal : No Nausea, No Vomiting, No Diarrhea, No Hematochezia, No Melena Genitourinary : No Dysuria, No Urinary Frequency, No Hematuria Musculoskeletal : No Myalgias Skin : No Skin Lesions, No rash Neuro : No Weakness, No Numbness, No Paresthesias, No Dizziness, No Headache Psych : positive Anxiety, positive Depression, positive SI no HI Heme/Lymph: No Lymphadenopathy Endocrine : No Polyuria, No Polydipsia All other systems reviewed and are negative [facility] Past Medical History Attestation statement: The following information was validated with the patient. Source: old records reviewed Medical History Active substance abuse Acute anxiety Depression Social History Social History Alcohol intake: current Alcohol intake frequency: 3 or more drinks per day Alcohol type: hard liquor Patient Tobacco Use Status: Current someday Tobacco user Smoked in Last 30 Days: Yes Use of substances other than those prescribed or required for medical reasons: Yes Substance Use Type: Crack/Cocaine and Heroin Substance Use Frequency: Daily Last Used Substance: Days (ago) Any prior treatment program specific to substance use: No Advance Directives: No Advance Directives Information Provided: Yes Do you have a plan to hurt others: No Plan Physical Exam 2 Vital Signs: Vital Signs: Last Vital Signs Temp 97.5 F 03/23/24 12:14 Pulse 77 03/23/24 14:19 Resp 16 03/23/24 13:03 BP 135/87 03/23/24 14:19 Pulse Ox 100 03/23/24 12:14 O2 Del Method Room Air 03/23/24 12:14 BMI result Body Mass Index 21.7 Appearance: Alert. Oriented X3. No acute distress. Eyes: Pupils equal, round and reactive to light. ENT: Pharynx normal. Neck: Normal inspection. Neck supple. CVS: Normal heart rate and rhythm. Pulses normal. Respiratory: No respiratory distress. Breath sounds normal. Abdomen: Soft and nontender. Skin: Skin warm and dry. Normal skin color. Normal skin turgor. Extremities: No lower extremity edema. No calf ttp Neuro: Oriented X 3. No motor deficit. No sensory deficit. CN2-12 intact Course Course Course Narrative: observation care revealed that the patient does meet psychiatric need for hospitalization. final disposition discussed with the patient. The patient completed observation care at 230m. Total time in observation care was 3 hours. Medications Administered Generic Name Dose Route Start Last Admin Trade Name Freq PRN Reason Stop Dose Admin Lorazepam 2 mg 03/23/24 11:41 03/23/24 12:00 Lorazepam 1 Mg Tablet PO 2 mg Q3H PRN Administration Alcohol Withdrawal Nicotine Polacrilex 2 mg 03/23/24 12:10 03/23/24 12:23 Nicotine Polacrilex 2 Mg Gum BUCCAL 2 mg Q1H PRN Administration Nicotine Cravings Nitrofurantoin Macrocrystals 100 mg 03/23/24 13:00 03/23/24 13:10 Nitrofurantoin Monohyd/M-Cryst 100 Mg Capsule PO 03/27/24 21:01 100 mg BID KAIT Administration Discontinued Medications Generic Name Dose Route Start Last Admin Trade Name Freq PRN Reason Stop Dose Admin Clonidine HCl 0.1 mg 03/23/24 13:00 03/23/24 13:10 Clonidine Hcl 0.1 Mg Tablet PO 03/23/24 13:01 0.1 mg ONCE ONE Administration Protocol Methadone HCl 25 mg 03/23/24 13:08 03/23/24 13:20 Methadone Hcl 20 Mg/2 Ml Oral.Conc PO 03/23/24 13:09 25 mg ONCE ONE Administration Medical Decision Making Medical Decision Making [facility] Narrative: 43 yo female with PMH of depression, anxiety, substance abuse, hypothyroidism here with c/o SI at this time will need labs, PRN ativan discuss methadone with addiction medicine. She has no medical complaints Differential Diagnosis Differential Diagnoses: The differential diagnosis associated with the presentation includes drug abuse, depression Admission/Observation Consideration of admission/observation: Escalation of care including admission/observation considered physician observation started at 1150am Lab Data [facility] Lab Attestation statement: I reviewed the patient's lab results. 03/23/24 12:03 03/23/24 12:03 Labs: Lab Results 03/23/24 03/23/24 Range/Units 11:57 12:03 WBC 7.8 (4.8-10.8) X10*3/uL RBC 4.87 (4.20-5.50) X10*6/uL Hgb 14.6 (12.0-16.0) g/dl Hct 41.5 (37.0-47.0) % MCV 85.2 (80.0-98.0) fL MCH 30.0 (27.0-33.0) pg MCHC 35.2 H (31.0-35.0) g/dl RDW 13.5 (11.0-16.0) % Plt Count 258 (160-400) X10*3/uL MPV 11.0 (9.4-12.3) fL Immature Gran % (Auto) 0.4 (0.0-0.4) % Neut % (Auto) 65.7 (45-73) % Lymph % (Auto) 20.4 (20-40) % Lipscomb % (Auto) 9.4 (2-11) % Eos % (Auto) 3.5 (0-4) % Baso % (Auto) 0.6 (0-2) % Lymph # (Auto) 1.6 (1.2-4.9) X10*3/uL Lipscomb # (Auto) 0.7 (0.1-1.2) X10*3/uL Eos # (Auto) 0.3 (0.0-0.4) X10*3/uL Baso # (Auto) 0.1 (0.0-0.2) X10*3/uL Abs Immat Gran (auto) 0.03 (0.00-0.03) X10*3/uL Absolute Neuts (auto) 5.1 (2.0-8.3) x10*3/uL Absolute Nucleated RBC 0.000 (0.0-0.012) X10*3/uL Nucleated RBC % (auto) 0.0 (0.0-0.2) /100WBC Sodium 142 (135-145) mmol/L Potassium 3.9 (3.3-5.1) mmol/L Chloride 108 (96-108) mmol/L Carbon Dioxide 27 (22-29) mmol/L Anion Gap 11 L (12-20) BUN 13 (9-16) mg/dL Creatinine 0.79 (0.5-1.4) mg/dL Estim Creat Clear Calc 70.0 Estimated GFR > 60 Random Glucose 85 (60-115) mg/dL Calcium 9.5 (8.4-10.2) mg/dL Magnesium 2.1 (1.6-2.6) mg/dL Total Bilirubin 0.6 (0.0-1.0) mg/dL Direct Bilirubin 0.3 (0.0-0.5) mg/dL AST 18 (5-31) U/L ALT 16 (0-31) U/L Alkaline Phosphatase 66 (39-117) U/L Total Protein 6.6 (6.5-8.0) g/dL Albumin 4.3 (3.5-5.0) g/dL Urine Color Dark Yellow Urine Appearance Clear Urine pH 6.5 (5.0-9.0) Ur Specific [place] >= 1.030 H (1.005-1.025) Urine Protein 30 (1+) H (Neg-Trace) mg/dL Urine Glucose (UA) Negative (Negative) mg/dL Urine Ketones Trace (Negative) mg/dL Urine Blood Negative (Negative) Urine Nitrite Negative (Negative) Ur Leukocyte Esterase Moderate (2+) H (Negative) Urine RBC 0-2 (0-2) /HPF Urine WBC >50 H (0-5) /HPF Ur Squamous Epith Cells 0-2 (0-2) /HPF Urine Bacteria None Seen (None Seen) Hyaline Casts 0-2 (0-2) /LPF Urine Test NEGATIVE (NEGATIVE) Urine Opiates Screen Not Detected (Not Detect) Ur Buprenorphine Scrn Not Detected (Not Detect) ng/mL Ur Oxycodone Screen Not Detected (Not Detect) ng/mL Urine Methadone Screen Not Detected (Not Detect) ng/mL Urine Fentanyl Screen POSITIVE H (Not Detect) Ur Barbiturates Screen POSITIVE H (Not Detect) Ur Phencyclidine Scrn Not Detected (Not Detect) Ur Amphetamines Screen Not Detected (Not Detect) U Benzodiazepines Scrn POSITIVE H (Not Detect) Urine Cocaine Screen POSITIVE H (Not Detect) U Marijuana (THC) Screen POSITIVE H (Not Detect) Ethyl Alcohol < 10 mg/dL Independent Interpretation I performed an independent interpretation of an: EKG Interpretation: Rate: 75 Rhythm: NSR Palmer: normal Normal P waves. Normal KELY. Normal QRS complex. ST T wave : normal no VICKI qTC: 464 prior studies: no acute ischemia The study has been interpreted contemporaneously by me. . External Record Review External record reviewed: Inpatient record Social Determinants Patient?s care significantly limited by Social Determinants of Health including: Problems related to primary support group Discharge Plan Discharge Clinical Impression: Depression, Acute UTI Patient Disposition: Admitted As Inpatient Interventions: [place]-Suicide Risk Severity Scale Last Done: 03/23/24 12:05
[2024-03-23] MEDS: LORazepam 1 MG TABLET 2 MG PO ×3 (12:00→21:45)
[2024-03-23 12:09] LABS: MANUAL DIFF FLAG NO
[2024-03-23 12:10] LABS: Basophils Absolute Auto 0.1 X10*3/uL (0.0-0.2); Basophils Percent Auto 0.6 % (0-2); Eosinophils Absolute Auto 0.3 X10*3/uL (0.0-0.4); Eosinophils Percent Auto 3.5 % (0-4); Hematocrit 41.5 % (37.0-47.0); Hemoglobin 14.6 g/dl (12.0-16.0); Imm Gran Abs Auto 0.03 X10*3/uL (0.00-0.03); Imm Gran Pct Auto 0.4 % (0.0-0.4); Lymphocytes Absolute Auto 1.6 X10*3/uL (1.2-4.9); Lymphocytes Percent Auto 20.4 % (20-40); Mean Corpuscular HGB Conc 35.2 g/dl (31.0-35.0); Mean Corpuscular Volume 85.2 fL (80.0-98.0); Monocytes Absolute Auto 0.7 X10*3/uL (0.1-1.2); Monocytes Percent Auto 9.4 % (2-11); Neutrophils Absolute Auto 5.1 x10*3/uL (2.0-8.3); Neutrophils Percent Auto 65.7 % (45-73); Platelet Count 258 X10*3/uL (160-400); Red Blood Count 4.87 X10*6/uL (4.20-5.50); Red Cell Distribution Width 13.5 % (11.0-16.0); White Blood Count 7.8 X10*3/uL (4.8-10.8)
[2024-03-23 12:11] LABS: Appearance Urine Clear; Color Urine Dark Yellow; Glucose Urine UA Negative (Negative); Leukocyte Esterase Urine Moderate (2+) (Negative); Nitrite Urine Negative (Negative); PH 6.5 (5.0-9.0); Specific Gravity - Urine >= 1.030 (1.005-1.025); UMIC TRIGGER UACC YES; Urine Blood Negative (Negative); Urine Ketones Trace mg/dL (Negative); Urine Protein 30 (1+) mg/dL (Neg-Trace)
[2024-03-23 12:14] VITALS: BP 160/101; PULSE 88; RESP 18; TEMP 36.4; O2SAT 100
[2024-03-23 12:16] LABS: Bacteria Urine None Seen (None Seen); Hyaline Casts Urine 0-2 /LPF (0-2); RBC Urine 0-2 /HPF (0-2); Squamous Epithelial Cell Urine 0-2 /HPF (0-2); UACC Culture Trigger YES; WBC Urine >50 /HPF (0-5)
[2024-03-23 12:21] LABS: Amphetamine Screen Urine Not Detected (Not Detect); Barbiturates, Urine POSITIVE (Not Detect); Benzodiazepines Screen Urine POSITIVE (Not Detect); Buprenorphine Scr Not Detected (Not Detect); Cannabinoid Screen Urine POSITIVE (Not Detect); Cocaine Screen Urine POSITIVE (Not Detect); Fentanyl, urine POSITIVE (Not Detect); Methadone Screen, Urine Not Detected (Not Detect); Opiate Screen Urine Not Detected (Not Detect); Oxycodone Screen Urine Not Detected (Not Detect); Phencyclidine Screen Urine Not Detected (Not Detect)
[2024-03-23] MEDS: Nicotine Polacrilex 2 MG GUM BUCCAL (12:23)
[2024-03-23 12:30] LABS: Alanine Aminotransferase 16 U/L (0-31); Albumin Level 4.3 g/dL (3.5-5.0); Alkaline Phosphatase 66 U/L (39-117); Anion Gap 11 (12-20); Aspartate Amino Transferase 18 U/L (5-31); Bilirubin Direct 0.3 mg/dL (0.0-0.5); Bilirubin Total 0.6 mg/dL (0.0-1.0); Blood Urea Nitrogen 13 mg/dL (9-16); Calcium 9.5 mg/dL (8.4-10.2); Carbon Dioxide 27 mmol/L (22-29); Chloride 108 mmol/L (96-108); Estimated Glomerular Filt Rate > 60; Ethanol < 10 mg/dL; Glucose Random 85 mg/dL (60-115); Magnesium 2.1 mg/dL (1.6-2.6); Potassium 3.9 mmol/L (3.3-5.1); Sodium 142 mmol/L (135-145); Total Protein 6.6 g/dL (6.5-8.0)
--- NOTE | 2024-03-23 12:57 | ECG_ITS ---
Test Reason : CHECK QTC INTERVAL Blood Pressure : / mmHG Vent. Rate : 075 BPM Atrial Rate : 075 BPM P-R Int : 128 ms QRS Dur : 074 ms QT Int : 416 ms P-R-T Axes : 072 066 067 degrees QTc Int : 464 ms Normal sinus rhythm Normal ECG When compared with ECG of 27-JAN-2020 02:34, QT has shortened Referred By: Kelly Jeter Electronically Signed By:CARINE DESAI MD
[2024-03-23 13:03] VITALS: BP 156/100; PULSE 86; RESP 16
[2024-03-23] MEDS: cloNIDine HCL 0.1 MG TABLET PO (13:10)
[2024-03-23] MEDS: Nitrofurantoin Monohyd/M-Cryst 100 MG CAPSULE PO ×2 (13:10→21:45)
[2024-03-23] MEDS: methADONE HCl 20 MG/2 ML ORAL.CONC 25 MG PO (13:20)
--- NOTE | 2024-03-23 13:23 | PC.NURSE ---
medicated per the MAR, 25mg methadone given. patient continues to rest quietly in room with even and unlabored respirations
[2024-03-23 14:07] LABS: UPreg QC Valid YES; Urine Pregnancy NEGATIVE (NEGATIVE)
--- NOTE | 2024-03-23 14:10 | MHC.CARE ---
patient seen by CARE team, is appropriate for inpatient psychaitry.
[2024-03-23 14:19] VITALS: BP 135/87; PULSE 77
[2024-03-23 15:05] VITALS: BP 156/104; PULSE 81; RESP 16; TEMP 36.9; O2SAT 99
[2024-03-23 16:03] VITALS: BMI 23.4
[2024-03-23] MEDS: Nicotine 21 MG PATCH.TD24 TRANSDERMA (16:03)
[2024-03-23] MEDS: hydrOXYzine HCL 25 MG TABLET PO ×2 (16:03→21:45)
[2024-03-23] MEDS: Nicotine Polacrilex 2 MG GUM 4 MG BUCCAL ×2 (16:03→18:12)
[2024-03-23] MEDS: methADONE HCl 20 MG/2 ML ORAL.CONC 10 MG PO (16:11)
[2024-03-23 16:29] VITALS: BP 131/84; PULSE 77
--- NOTE | 2024-03-23 17:09 | PC.NURSE ---
Pt arrived on the unit at 1459 on 15 minute safety checks. Pt self presented to [facility] ED with SI. This was in the context of polysubstance abuse and recent no abuse order placed on pt's . Pt has follow up court date 03/29. Pt cites substance use and marital difficulties as reasons for worsening depression. Pt had previous OP providers at [facility] but has been terminated d/t noncomplaince. No recent medications. Pt has numerous psychiatric and detox admission, none at this facility. Upon arrival pt's blood pressure was elevated 156/104 p.81. Pt's CIWA was 14, pt received 2mg ativan. Pt was started on methadone 25 mg today (03/23) in the ED. Upon arrival to the floor pt received 10mg more methadone. After being medicated for withdrawal pts BP131/84, pulse 77. Pt has been cooperative with admission, reporting high anxiety. Admission done. Pt is a CV.
[2024-03-23 19:15] VITALS: BP 126/74; PULSE 69; TEMP 37.2; O2SAT 98
[2024-03-23] MEDS: Acetaminophen 325 MG TABLET 650 MG PO (21:45)
[2024-03-23] MEDS: QUEtiapine Fumarate 300 MG TABLET PO (22:31)
[2024-03-24] MEDS: LORazepam 1 MG TABLET 2 MG PO ×3 (01:56→21:14)
[2024-03-24 08:00] VITALS: BP 131/68; BP 145/83; PULSE 77; PULSE 78; RESP 16; TEMP 36.6; TEMP 36.8; O2SAT 100; O2SAT 99
[2024-03-24] MEDS: methADONE HCl 20 MG/2 ML ORAL.CONC 40 MG PO (09:25)
[2024-03-24] MEDS: LORazepam 1 MG TABLET PO ×3 (10:06→20:46)
[2024-03-24] MEDS: Nitrofurantoin Monohyd/M-Cryst 100 MG CAPSULE PO ×2 (10:07→20:46)
[2024-03-24] MEDS: Nicotine Polacrilex 2 MG GUM 4 MG BUCCAL ×2 (10:09→15:11)
[2024-03-24 10:12] LABS: Estimated Average Glucose 97 mg/dL
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
[2024-03-24 10:33] LABS: Cholesterol 106 mg/dL (<200); HDL Cholesterol 45 mg/dL (>40); LDL Cholesterol Calculated 40 mg/dL (<100); Magnesium 1.8 mg/dL (1.6-2.6); Triglycerides 108 mg/dL (<150)
[2024-03-24 10:47] LABS: Free T4 (Free Thyroxine) 0.98 ng/dL (0.71-1.85)
[2024-03-24 11:37] LABS: Vitamin B12 498 pg/mL (200-900)
[2024-03-24] MEDS: Gabapentin 300 MG CAPSULE PO ×3 (14:26→20:47)
[2024-03-24 20:18] VITALS: BP 135/84; PULSE 70; RESP 16; TEMP 36.9; O2SAT 98
[2024-03-24] MEDS: Thiamine HCL 100 MG TABLET PO (20:45)
[2024-03-24] MEDS: cloNIDine HCL 0.1 MG TABLET PO (20:46)
[2024-03-24] MEDS: QUEtiapine Fumarate 300 MG TABLET PO (20:47)
[2024-03-24] MEDS: Folic Acid 1 MG TABLET PO (20:47)
[2024-03-25] VITALS (7 sets, daily range): BP systolic 119–134; BP diastolic 71–90; PULSE 78–82; RESP 16–18; TEMP 36.8–37.4; O2SAT 95–99
[2024-03-25] MEDS: LORazepam 1 MG TABLET PO ×4 (09:24→21:13)
[2024-03-25] MEDS: Thiamine HCL 100 MG TABLET PO (09:24)
[2024-03-25] MEDS: Gabapentin 300 MG CAPSULE PO ×3 (09:24→20:30)
[2024-03-25] MEDS: Folic Acid 1 MG TABLET PO (09:25)
[2024-03-25] MEDS: Nicotine Polacrilex 2 MG GUM 4 MG BUCCAL ×4 (09:31→20:32)
[2024-03-25] MEDS: Nicotine 21 MG PATCH.TD24 TRANSDERMA (09:31)
[2024-03-25] MEDS: hydrOXYzine HCL 25 MG TABLET PO ×2 (09:51→20:32)
[2024-03-25] MEDS: Acetaminophen 325 MG TABLET 650 MG PO ×2 (09:51→18:55)
--- NOTE | 2024-03-25 10:02 | HO.PSYCHPN ---
Subjective Subjective Date of Service: 03/25/24 Reason For Visit: Depression polysubstance use disorder PTSD Interim History: Reports she has a painful area on her left buttocks. She is having redness and swelling. Reports it started just last night. No trauma to the area. No concerns regarding her medications. Slept well. Medication Compliance: Yes Review of Systems Review of Systems Constitutional : No Fever, No Chills ENT/Mouth : No Ear Pain, No Nasal Congestion, No sore throat Eyes: No Eye Pain, No Swelling, No Redness Cardiovascular : No Chest Pain, No SOB Respiratory : No Cough, No Sputum, No Dyspnea Gastrointestinal : No Nausea, No Vomiting, No Diarrhea, No Hematochezia, No Melena Genitourinary : No Dysuria, No Urinary Frequency, No Hematuria Musculoskeletal : No Myalgias Skin : No Skin Lesions, No rash Neuro : No Weakness, No Numbness, No Paresthesias, No Dizziness, No Headache Psych : positive Anxiety, positive Depression, positive SI no HI Heme/Lymph: No Lymphadenopathy Endocrine : No Polyuria, No Polydipsia All other systems reviewed and are negative Mental Status Exam Mental Status Exam Narrative: Pt is alert and oriented; behavior is cooperative, anxious, very tearful; patient is not in distress; dressed in casual attire, disheveled, unkempt hair; mood is described as anxious and affect congruent, tearful; eye contact appropriate; Speech is normal rate, volume and prosody and not pressured; intermittent psychomotor agitation present; thought process is organized and goal directed; Thought content is on tx; otherwise pertinent to relevant topics and without any delusional content, paranoid ideations or grandiosity; currently without any SI; no HI. Intermittent AH and VH related to withdrawal symptoms only Patients insight and judgment impaired Diagnostics Vital Signs (24Hr): Vital Signs - 24 hr 03/24/24 20:18 03/25/24 08:09 Temperature 98.4 F 99.4 F Pulse Rate 70 78 Respiratory Rate 16 16 Blood Pressure 135/84 124/75 Pulse Oximetry 98 97 Oxygen Delivery Method Room Air Room Air BMI result Body Mass Index 23.4 Labs 03/23/24 12:03 03/23/24 12:03 Labs: Laboratory Results - last 48 hr 03/23/24 03/23/24 03/24/24 11:57 12:03 09:35 WBC 7.8 RBC 4.87 Hgb 14.6 Hct 41.5 MCV 85.2 MCH 30.0 MCHC 35.2 H RDW 13.5 Plt Count 258 MPV 11.0 Immature Gran % (Auto) 0.4 Neut % (Auto) 65.7 Lymph % (Auto) 20.4 [place] % (Auto) 9.4 Eos % (Auto) 3.5 Baso % (Auto) 0.6 Lymph # (Auto) 1.6 [place] # (Auto) 0.7 Eos # (Auto) 0.3 Baso # (Auto) 0.1 Abs Immat Gran (auto) 0.03 Absolute Neuts (auto) 5.1 Absolute Nucleated RBC 0.000 Nucleated RBC % (auto) 0.0 Sodium 142 Potassium 3.9 Chloride 108 Carbon Dioxide 27 Anion Gap 11 L BUN 13 Creatinine 0.79 Estim Creat Clear Calc 70.0 Estimated GFR > 60 Random Glucose 85 Estimat Average Glucose 97 Hemoglobin A1c % 5.0 Calcium 9.5 Magnesium 2.1 1.8 Total Bilirubin 0.6 Direct Bilirubin 0.3 AST 18 ALT 16 Alkaline Phosphatase 66 Total Protein 6.6 Albumin 4.3 Triglycerides 108 Cholesterol 106 LDL Cholesterol, Calc 40 HDL Cholesterol 45 Vitamin B12 498 Folate 7.0 Free T4 0.98 Urine Color Dark Yellow Urine Appearance Clear Urine pH 6.5 Ur Specific [place] >= 1.030 H Urine Protein 30 (1+) H Urine Glucose (UA) Negative Urine Ketones Trace Urine Blood Negative Urine Nitrite Negative Ur Leukocyte Esterase Moderate (2+) H Urine RBC 0-2 Urine WBC >50 H Ur Squamous Epith Cells 0-2 Urine Bacteria None Seen Hyaline Casts 0-2 Urine Test NEGATIVE Urine Opiates Screen Not Detected Ur Buprenorphine Scrn Not Detected Ur Oxycodone Screen Not Detected Urine Methadone Screen Not Detected Urine Fentanyl Screen POSITIVE H Ur Barbiturates Screen POSITIVE H Ur Phencyclidine Scrn Not Detected Ur Amphetamines Screen Not Detected U Benzodiazepines Scrn POSITIVE H Urine Cocaine Screen POSITIVE H U Marijuana (THC) Screen POSITIVE H Ethyl Alcohol < 10 Medications Medications Current Medications Acetaminophen (Acetaminophen 325 Mg Tablet) 650 mg PO Q6H PRN PRN Reason: Headache/Pain Mild Scale (1-3) Last Admin: 03/25/24 09:51 Dose: 650 mg Al Hydroxide/Mg Hydroxide (Magnesium Hydrox/Alum Hydrox 30 Ml Oral.Susp) 30 ml PO Q6H PRN PRN Reason: Heartburn/Nausea Clonidine HCl (Clonidine Hcl 0.1 Mg Tablet) 0.1 mg PO BEDTIME [facility]; Protocol Last Admin: 03/24/24 20:46 Dose: 0.1 mg Clonidine HCl (Clonidine Hcl 0.1 Mg Tablet) 0.1 mg PO Q4H PRN; Protocol PRN Reason: mild anxiety Folic Acid (Folic Acid 1 Mg Tablet) 1 mg PO DAILY [facility] Last Admin: 03/25/24 09:25 Dose: 1 mg Gabapentin (Gabapentin 300 Mg Capsule) 300 mg PO TID [facility] Last Admin: 03/25/24 09:24 Dose: 300 mg Hydroxyzine HCl (Hydroxyzine Hcl 25 Mg Tablet) 25 mg PO Q6H PRN PRN Reason: Anxiety Last Admin: 03/25/24 09:51 Dose: 25 mg Lorazepam (Lorazepam 1 Mg Tablet) 1 mg PO Q2H PRN PRN Reason: ciwa 6-10 Last Admin: 03/25/24 09:52 Dose: 1 mg Lorazepam (Lorazepam 1 Mg Tablet) 2 mg PO Q2H PRN PRN Reason: ciwa 11-16 Last Admin: 03/24/24 21:14 Dose: 2 mg Lorazepam (Lorazepam 1 Mg Tablet) 1 mg PO TID [facility] Last Admin: 03/25/24 09:24 Dose: 1 mg Magnesium Hydroxide (Milk Of Magnesia 30 Ml Oral.Susp) 30 ml PO DAILY PRN PRN Reason: Constipation Methadone HCl (Methadone Hcl 20 Mg/2 Ml Oral.Conc) 40 mg PO DAILY [facility] Last Admin: 03/24/24 09:25 Dose: 40 mg Nicotine (Nicotine 21 Mg Patch.Td24) 21 mg TRANSDERMA DAILY PRN PRN Reason: nicotine cravings Last Admin: 03/25/24 09:31 Dose: 21 mg Nicotine Polacrilex (Nicotine Polacrilex 2 Mg Gum) 4 mg BUCCAL Q2H PRN PRN Reason: Nicotine Cravings Last Admin: 03/25/24 09:31 Dose: 4 mg Nitrofurantoin Macrocrystals (Nitrofurantoin Monohyd/M-Cryst 100 Mg Capsule) 100 mg PO BID [facility] Stop: 03/27/24 21:01 Last Admin: 03/24/24 20:46 Dose: 100 mg Quetiapine Fumarate (Quetiapine Fumarate 300 Mg Tablet) 300 mg PO BEDTIME [facility] Last Admin: 03/24/24 20:47 Dose: 300 mg Thiamine HCl (Thiamine Hcl 100 Mg Tablet) 100 mg PO DAILY [facility] Last Admin: 03/25/24 09:24 Dose: 100 mg Allergies Allergies Allergy/AdvReac Type Severity Reaction Status Date / Time trazodone AdvReac Severe RLS Verified 03/23/24 22:25 Assessment & Plan Assessment & Plan (1) MDD (major depressive disorder), recurrent severe, without psychosis: Status: Acute Code(s): F33.2 - Major depressive disorder, recurrent severe without psychotic features (2) PTSD (post-traumatic stress disorder): Status: Acute Code(s): F43.10 - Post-traumatic stress disorder, unspecified (3) Alcohol use disorder: Status: Acute Code(s): F10.90 - Alcohol use, unspecified, uncomplicated (4) Alcohol withdrawal: Status: Acute Code(s): F10.939 - Alcohol use, unspecified with withdrawal, unspecified (5) Cocaine use disorder: Status: Acute Code(s): F14.10 - Cocaine abuse, uncomplicated (6) Opioid use disorder: Status: Acute Code(s): F11.90 - Opioid use, unspecified, uncomplicated (7) Acute UTI: Status: Acute Code(s): N39.0 - Urinary tract infection, site not specified Plan HPI: Patient is a 43-year-old female with history of depression, anxiety, cocaine, opiate, alcohol use disorder/dependence, on methadone, who self presents for worsening depression and SI in the face of homelessness and being off medications. Patient reports that she and her are /; about 4 months ago she moved out, became homeless and stopped taking her medications and became further embroiled in polysubstance abuse. Patient reports that her depression has been mounting over the past months and this past she felt suicidal, though no plan mentioned, and self presented for treatment. Patient is detoxing from alcohol, uncomfortable, tearful and wanting to keep interview short. She says she used to be on Wellbutrin, Seroquel 300 mg q.h.s., clonidine p.r.n. all of which she found helpful would like to get back on it. She also says she used to be on Xanax 2 mg t.i.d. which was what really helped her anxiety. Patient reports both auditory and visual hallucinations, seeing people in the room, hearing birds, hearing people talking which she says knows is not real and says only happens when she is detoxing from alcohol. Patient reports history of hypothyroid though reviewed labs with pt and TSH/free T3 WNL. Formulation/clinical reasoning: -Patient has long history of severe polysubstance abuse and is currently withdrawing from alcohol with symptoms of alcoholic hallucinosis, with both auditory and visual hallucinations which she knows are hallucinations. -Chronic anxiety and depression, off meds for 4 months -Patient is not scoring very high on CIWA but complaining of problematic withdrawal symptoms; patient just restarted on methadone which might be subduing some of her symptoms -Given the longevity and severity of alcohol abuse/dependence, will schedule both gabapentin and Ativan for now and then taper them off; will continue for breakthrough symptoms; -once detox more underway will restart Wellbutrin. Other Then for detox will avoid benzos for treatment Plan: CV Q 15 minute checks Ativan 1 mg t.i.d. Gabapentin 300 mg t.i.d. CIWA with Ativan p.r.n. for breakthrough symptoms Seroquel 300 mg q.h.s.; patient says she used to take this and it helps Will restart Wellbutrin once stabilized from detox Clonidine p.r.n. Patient reports history of hypothyroid; reviewed labs and currently TSH/free T3 WNL. 03/25: continue current management and treatment plan. Asked medicine to see for evaluation of possible cellulitis. Reason for continued inpatient stay Substantial Risk for: harm to self, rapid decompensation and med/psych decompensation Time Spent With Patient Time: Total time managing care of this patient today ____ minutes.
[2024-03-25] MEDS: Nitrofurantoin Monohyd/M-Cryst 100 MG CAPSULE PO ×2 (10:33→20:31)
[2024-03-25] MEDS: methADONE HCl 20 MG/2 ML ORAL.CONC 40 MG PO (10:33)
[2024-03-25] MEDS: Doxycycline Monohydrate 100 MG CAPSULE PO ×2 (15:22→20:30)
[2024-03-25] MEDS: cloNIDine HCL 0.1 MG TABLET PO ×3 (15:34→23:55)
[2024-03-25] MEDS: LORazepam 1 MG TABLET 2 MG PO ×3 (15:34→23:55)
--- NOTE | 2024-03-25 16:03 | P.EN_ITS ---
Event Note Date of Service: 03/25/24 Event Note: Patient is a 43-year-old female with a PMH significant for hypothyroidism, polysubstance use disorder, depression, and anxiety who was admitted [facility] for increasing depression with SI. Hospitalist consult for painful red rash swelling left buttock. Patient with history of polysubstance use disorder, reports currently smoking crack cocaine and significant heroin. Denies any recent history of IVDU. Reports yesterday noticed the painful area o f swelling and redness on right upper buttock that has worsened today. Denies any known trauma to the area. No fever or chills. Reports was nauseous this morning and vomited up her medications soon after taking them. Upon physical examination there is an approximately 3 cm erythematous and warm oval-shape lesion on left upper buttock. Possibly some mild swelling, but no appreciable induration or fluctuance. Currently little concern for abscess. Skin intact with no noticeable abrasions. Will treat with doxycycline 100 mg b.i.d. x5 days. Patient should take medication with meals and full glass of water. Please contact us again if pt's symptoms persist or worsen. Time Spent With Patient Time: Total time managing care of this patient today ____ minutes.
[2024-03-25] MEDS: QUEtiapine Fumarate 300 MG TABLET PO (20:31)
[2024-03-26] MEDS: LORazepam 1 MG TABLET 2 MG PO (03:40)
[2024-03-26 07:59] VITALS: BP 98/61; PULSE 87; RESP 18; TEMP 36.4; O2SAT 95
[2024-03-26] MEDS: Folic Acid 1 MG TABLET PO (08:14)
[2024-03-26] MEDS: LORazepam 1 MG TABLET PO ×4 (08:14→19:53)
[2024-03-26] MEDS: Nitrofurantoin Monohyd/M-Cryst 100 MG CAPSULE PO ×2 (08:14→20:03)
[2024-03-26] MEDS: Doxycycline Monohydrate 100 MG CAPSULE PO ×2 (08:14→20:03)
[2024-03-26] MEDS: Thiamine HCL 100 MG TABLET PO (08:15)
[2024-03-26] MEDS: Gabapentin 300 MG CAPSULE PO (08:15)
[2024-03-26] MEDS: methADONE HCl 20 MG/2 ML ORAL.CONC 40 MG PO (08:16)
[2024-03-26] MEDS: Nicotine 21 MG PATCH.TD24 TRANSDERMA (08:43)
[2024-03-26] MEDS: Gabapentin 100 MG CAPSULE 200 MG PO ×2 (15:31→20:03)
[2024-03-26] MEDS: LORazepam 0.5 MG TABLET PO ×2 (15:31→20:03)
[2024-03-26] MEDS: Acetaminophen 325 MG TABLET 650 MG PO (15:32)
--- NOTE | 2024-03-26 17:13 | HO.PSYCHPN ---
Subjective Subjective Date of Service: 03/26/24 Reason For Visit: Depression polysubstance use disorder PTSD Interim History: Patient extremely sedated and nodding. Seen in common area, standing in front of a table bent forward and head on the table. Discussed lowering patient's sedating medications and relying on objective signs of withdrawal for PRN administration. No signs of ETOH withdrawal. No tremors. Was seen by medicine and started on doxycycline for buttock cellulites. Slept well. Review of Systems Review of Systems Constitutional : No Fever, No Chills ENT/Mouth : No Ear Pain, No Nasal Congestion, No sore throat Eyes: No Eye Pain, No Swelling, No Redness Cardiovascular : No Chest Pain, No SOB Respiratory : No Cough, No Sputum, No Dyspnea Gastrointestinal : No Nausea, No Vomiting, No Diarrhea, No Hematochezia, No Melena Genitourinary : No Dysuria, No Urinary Frequency, No Hematuria Musculoskeletal : No Myalgias Skin : No Skin Lesions, No rash Neuro : No Weakness, No Numbness, No Paresthesias, No Dizziness, No Headache Psych : positive Anxiety, positive Depression, positive SI no HI Heme/Lymph: No Lymphadenopathy Endocrine : No Polyuria, No Polydipsia All other systems reviewed and are negative Mental Status Exam Mental Status Exam Narrative: Pt is alert and oriented; behavior is cooperative, anxious, very tearful; patient is not in distress; dressed in casual attire, disheveled, unkempt hair; mood is described as anxious and affect congruent, tearful; eye contact appropriate; Speech is normal rate, volume and prosody and not pressured; intermittent psychomotor agitation present; thought process is organized and goal directed; Thought content is on tx; otherwise pertinent to relevant topics and without any delusional content, paranoid ideations or grandiosity; currently without any SI; no HI. Intermittent AH and VH related to withdrawal symptoms only Patients insight and judgment impaired Diagnostics Vital Signs (24Hr): Vital Signs - 24 hr 03/25/24 20:00 03/25/24 23:55 03/26/24 07:59 Temperature 98.3 F 97.6 F Pulse Rate 82 87 Respiratory Rate 18 18 Blood Pressure 134/72 134/77 98/61 Pulse Oximetry 97 95 Oxygen Delivery Method Room Air Room Air BMI result Body Mass Index 23.4 Labs 03/23/24 12:03 03/23/24 12:03 Medications Medications Current Medications Acetaminophen (Acetaminophen 325 Mg Tablet) 650 mg PO Q6H PRN PRN Reason: Headache/Pain Mild Scale (1-3) Last Admin: 03/26/24 15:32 Dose: 650 mg Al Hydroxide/Mg Hydroxide (Magnesium Hydrox/Alum Hydrox 30 Ml Oral.Susp) 30 ml PO Q6H PRN PRN Reason: Heartburn/Nausea Clonidine HCl (Clonidine Hcl 0.1 Mg Tablet) 0.1 mg PO BEDTIME [facility]; Protocol Last Admin: 03/25/24 20:30 Dose: 0.1 mg Clonidine HCl (Clonidine Hcl 0.1 Mg Tablet) 0.1 mg PO Q4H PRN; Protocol PRN Reason: mild anxiety Last Admin: 03/25/24 23:55 Dose: 0.1 mg Doxycycline Monohydrate (Doxycycline Monohydrate 100 Mg Capsule) 100 mg PO BID [facility] Last Admin: 03/26/24 08:14 Dose: 100 mg Folic Acid (Folic Acid 1 Mg Tablet) 1 mg PO DAILY [facility] Last Admin: 03/26/24 08:14 Dose: 1 mg Gabapentin (Gabapentin 100 Mg Capsule) 200 mg PO TID [facility] Last Admin: 03/26/24 15:31 Dose: 200 mg Hydroxyzine HCl (Hydroxyzine Hcl 25 Mg Tablet) 25 mg PO Q6H PRN PRN Reason: Anxiety Last Admin: 03/25/24 20:32 Dose: 25 mg Lorazepam (Lorazepam 1 Mg Tablet) 1 mg PO Q2H PRN PRN Reason: ciwa 6-10 Last Admin: 03/26/24 16:42 Dose: 1 mg Lorazepam (Lorazepam 0.5 Mg Tablet) 0.5 mg PO TID [facility] Stop: 03/27/24 14:59 Last Admin: 03/26/24 15:31 Dose: 0.5 mg Magnesium Hydroxide (Milk Of Magnesia 30 Ml Oral.Susp) 30 ml PO DAILY PRN PRN Reason: Constipation Methadone HCl (Methadone Hcl 20 Mg/2 Ml Oral.Conc) 40 mg PO DAILY [facility] Last Admin: 03/26/24 08:16 Dose: 40 mg Nicotine (Nicotine 21 Mg Patch.Td24) 21 mg TRANSDERMA DAILY PRN PRN Reason: nicotine cravings Last Admin: 03/26/24 08:43 Dose: 21 mg Nicotine Polacrilex (Nicotine Polacrilex 2 Mg Gum) 4 mg BUCCAL Q2H PRN PRN Reason: Nicotine Cravings Last Admin: 03/25/24 20:32 Dose: 4 mg Nitrofurantoin Macrocrystals (Nitrofurantoin Monohyd/M-Cryst 100 Mg Capsule) 100 mg PO BID [facility] Stop: 03/27/24 21:01 Last Admin: 03/26/24 08:14 Dose: 100 mg Quetiapine Fumarate (Quetiapine Fumarate 300 Mg Tablet) 300 mg PO BEDTIME [facility] Last Admin: 03/25/24 20:31 Dose: 300 mg Thiamine HCl (Thiamine Hcl 100 Mg Tablet) 100 mg PO DAILY [facility] Last Admin: 03/26/24 08:15 Dose: 100 mg Allergies Allergies Allergy/AdvReac Type Severity Reaction Status Date / Time trazodone AdvReac Severe RLS Verified 03/23/24 22:25 Assessment & Plan Assessment & Plan (1) MDD (major depressive disorder), recurrent severe, without psychosis: Status: Acute Code(s): F33.2 - Major depressive disorder, recurrent severe without psychotic features (2) PTSD (post-traumatic stress disorder): Status: Acute Code(s): F43.10 - Post-traumatic stress disorder, unspecified (3) Alcohol use disorder: Status: Acute Code(s): F10.90 - Alcohol use, unspecified, uncomplicated (4) Alcohol withdrawal: Status: Acute Code(s): F10.939 - Alcohol use, unspecified with withdrawal, unspecified (5) Cocaine use disorder: Status: Acute Code(s): F14.10 - Cocaine abuse, uncomplicated (6) Opioid use disorder: Status: Acute Code(s): F11.90 - Opioid use, unspecified, uncomplicated (7) Acute UTI: Status: Acute Code(s): N39.0 - Urinary tract infection, site not specified Plan HPI: Patient is a 43-year-old female with history of depression, anxiety, cocaine, opiate, alcohol use disorder/dependence, on methadone, who self presents for worsening depression and SI in the face of homelessness and being off medications. Patient reports that she and her are /; about 4 months ago she moved out, became homeless and stopped taking her medications and became further embroiled in polysubstance abuse. Patient reports that her depression has been mounting over the past months and this past she felt suicidal, though no plan mentioned, and self presented for treatment. Patient is detoxing from alcohol, uncomfortable, tearful and wanting to keep interview short. She says she used to be on Wellbutrin, Seroquel 300 mg q.h.s., clonidine p.r.n. all of which she found helpful would like to get back on it. She also says she used to be on Xanax 2 mg t.i.d. which was what really helped her anxiety. Patient reports both auditory and visual hallucinations, seeing people in the room, hearing birds, hearing people talking which she says knows is not real and says only happens when she is detoxing from alcohol. Patient reports history of hypothyroid though reviewed labs with pt and TSH/free T3 WNL. Formulation/clinical reasoning: -Patient has long history of severe polysubstance abuse and is currently withdrawing from alcohol with symptoms of alcoholic hallucinosis, with both auditory and visual hallucinations which she knows are hallucinations. -Chronic anxiety and depression, off meds for 4 months -Patient is not scoring very high on CIWA but complaining of problematic withdrawal symptoms; patient just restarted on methadone which might be subduing some of her symptoms -Given the longevity and severity of alcohol abuse/dependence, will schedule both gabapentin and Ativan for now and then taper them off; will continue for breakthrough symptoms; -once detox more underway will restart Wellbutrin. Other Then for detox will avoid benzos for treatment Plan: CV Q 15 minute checks Ativan 1 mg t.i.d. Gabapentin 300 mg t.i.d. CIWA with Ativan p.r.n. for breakthrough symptoms Seroquel 300 mg q.h.s.; patient says she used to take this and it helps Will restart Wellbutrin once stabilized from detox Clonidine p.r.n. Patient reports history of hypothyroid; reviewed labs and currently TSH/free T3 WNL. 03/25: continue current management and treatment plan. Asked medicine to see for evaluation of possible cellulitis. 03/26: Lower GBP to 200 mg TID. DC Ativan 2 mg. Lower standing Ativan to 0.5 mg TID. Consider further taper of sedating medications. Reason for continued inpatient stay Substantial Risk for: harm to self, inability to function and rapid decompensation Time Spent With Patient Time: Total time managing care of this patient today ____ minutes.
[2024-03-26] MEDS: Nicotine Polacrilex 2 MG GUM 4 MG BUCCAL ×2 (19:26→21:36)
[2024-03-26 19:29] VITALS: BP 117/82
[2024-03-26 20:00] VITALS: BP 112/70; PULSE 78; RESP 18; TEMP 36.7; O2SAT 98
[2024-03-26] MEDS: QUEtiapine Fumarate 300 MG TABLET PO (20:03)
[2024-03-26 20:05] VITALS: BP 112/70
[2024-03-26] MEDS: cloNIDine HCL 0.1 MG TABLET PO (20:05)
--- NOTE | 2024-03-26 20:45 | PC.NURSE ---
call or contact centre operator provider Dixie notified when pt had a CIWA of 14. Patient had scheduled and PRN ativan at the time. Reassessed approximately 30 minutes later; CIWA of 9. Provider notified; no new orders.
[2024-03-26] MEDS: hydrOXYzine HCL 25 MG TABLET PO (21:36)
[2024-03-27 00:31] VITALS: BP 111/77
[2024-03-27] MEDS: cloNIDine HCL 0.1 MG TABLET PO ×3 (00:31→19:23)
[2024-03-27 08:00] VITALS: BP 131/88; PULSE 84; RESP 18; TEMP 36.9; O2SAT 98
[2024-03-27] MEDS: Nitrofurantoin Monohyd/M-Cryst 100 MG CAPSULE PO ×2 (08:54→19:24)
[2024-03-27] MEDS: Gabapentin 100 MG CAPSULE 200 MG PO ×3 (08:54→19:23)
[2024-03-27] MEDS: LORazepam 0.5 MG TABLET PO ×2 (08:54→12:35)
[2024-03-27] MEDS: methADONE HCl 20 MG/2 ML ORAL.CONC 40 MG PO (08:55)
[2024-03-27] MEDS: Doxycycline Monohydrate 100 MG CAPSULE PO ×2 (08:55→19:23)
[2024-03-27] MEDS: Thiamine HCL 100 MG TABLET PO (08:55)
[2024-03-27] MEDS: Folic Acid 1 MG TABLET PO (08:55)
--- NOTE | 2024-03-27 09:52 | HO.PSYCHPN ---
Subjective Subjective Date of Service: 03/27/24 Reason For Visit: Depression polysubstance use disorder PTSD Interim History: met with patient; discussed with team pt tearful, depressed, anxious. She agrees that her own anxiety is mixed with w/drawal symptoms; says ptsd is the worst, with frequent intrusive memories. Discussed history and patient denies no hx of cuong/manic episodes; hx of AH but only in context of intoxication or withdrawal med trials include Prozac, which had sexual side effects and Zoloft which she thinks was not helpful but not sure if therapeutic dose/duration. Patient has otherwise dependent on benzodiazepines to deal with anxiety. Discussed how this is not sustainable approach given her struggles with substance abuse and PTSD. She agrees to try Trileptal after marketing writer reviewed risks/side effects, see if that can help with anxiety. Mental Status Exam Mental Status Exam Narrative: Pt is alert and oriented; behavior is cooperative, anxious, tearful; patient is not in distress; dressed in casual attire, disheveled, unkempt hair; mood is described as anxious...depressed and affect congruent, tearful; eye contact appropriate; Speech is normal rate, volume and prosody and not pressured; no psychomotor agitation/retardation present; thought process is organized and goal directed; Thought content is on dealing with trauma history, detox, tx; otherwise pertinent to relevant topics and without any delusional content, paranoid ideations or grandiosity; no SI; no HI. No AVH (which is otherwise only ever associated with intoxication/withdrawal). Patients insight and judgment impaired but improving Diagnostics Vital Signs (24Hr): Vital Signs - 24 hr 03/26/24 19:29 03/26/24 20:00 03/26/24 20:05 Temperature 98.0 F Pulse Rate 78 Respiratory Rate 18 Blood Pressure 117/82 112/70 112/70 Pulse Oximetry 98 Oxygen Delivery Method Room Air 03/27/24 00:31 Temperature Pulse Rate Respiratory Rate Blood Pressure 111/77 Pulse Oximetry Oxygen Delivery Method BMI result Body Mass Index 23.4 Labs 03/23/24 12:03 03/23/24 12:03 Medications Medications Current Medications Acetaminophen (Acetaminophen 325 Mg Tablet) 650 mg PO Q6H PRN PRN Reason: Headache/Pain Mild Scale (1-3) Last Admin: 03/26/24 15:32 Dose: 650 mg Al Hydroxide/Mg Hydroxide (Magnesium Hydrox/Alum Hydrox 30 Ml Oral.Susp) 30 ml PO Q6H PRN PRN Reason: Heartburn/Nausea Clonidine HCl (Clonidine Hcl 0.1 Mg Tablet) 0.1 mg PO BEDTIME [facility]; Protocol Last Admin: 03/26/24 20:05 Dose: 0.1 mg Clonidine HCl (Clonidine Hcl 0.1 Mg Tablet) 0.1 mg PO Q4H PRN; Protocol PRN Reason: mild anxiety Last Admin: 03/27/24 00:31 Dose: 0.1 mg Doxycycline Monohydrate (Doxycycline Monohydrate 100 Mg Capsule) 100 mg PO BID [facility] Last Admin: 03/27/24 08:55 Dose: 100 mg Folic Acid (Folic Acid 1 Mg Tablet) 1 mg PO DAILY [facility] Last Admin: 03/27/24 08:55 Dose: 1 mg Gabapentin (Gabapentin 100 Mg Capsule) 200 mg PO TID [facility] Last Admin: 03/27/24 08:54 Dose: 200 mg Hydroxyzine HCl (Hydroxyzine Hcl 25 Mg Tablet) 25 mg PO Q6H PRN PRN Reason: Anxiety Last Admin: 03/26/24 21:36 Dose: 25 mg Lorazepam (Lorazepam 1 Mg Tablet) 1 mg PO Q2H PRN PRN Reason: ciwa 6-10 Last Admin: 03/26/24 19:53 Dose: 1 mg Lorazepam (Lorazepam 0.5 Mg Tablet) 0.5 mg PO TID [facility] Stop: 03/27/24 14:59 Last Admin: 03/27/24 08:54 Dose: 0.5 mg Magnesium Hydroxide (Milk Of Magnesia 30 Ml Oral.Susp) 30 ml PO DAILY PRN PRN Reason: Constipation Methadone HCl (Methadone Hcl 20 Mg/2 Ml Oral.Conc) 40 mg PO DAILY [facility] Last Admin: 03/27/24 08:55 Dose: 40 mg Nicotine (Nicotine 21 Mg Patch.Td24) 21 mg TRANSDERMA DAILY PRN PRN Reason: nicotine cravings Last Admin: 03/26/24 08:43 Dose: 21 mg Nicotine Polacrilex (Nicotine Polacrilex 2 Mg Gum) 4 mg BUCCAL Q2H PRN PRN Reason: Nicotine Cravings Last Admin: 03/26/24 21:36 Dose: 4 mg Nitrofurantoin Macrocrystals (Nitrofurantoin Monohyd/M-Cryst 100 Mg Capsule) 100 mg PO BID [facility] Stop: 03/27/24 21:01 Last Admin: 03/27/24 08:54 Dose: 100 mg Quetiapine Fumarate (Quetiapine Fumarate 300 Mg Tablet) 300 mg PO BEDTIME [facility] Last Admin: 03/26/24 20:03 Dose: 300 mg Thiamine HCl (Thiamine Hcl 100 Mg Tablet) 100 mg PO DAILY [facility] Last Admin: 03/27/24 08:55 Dose: 100 mg Allergies Allergies Allergy/AdvReac Type Severity Reaction Status Date / Time trazodone AdvReac Severe RLS Verified 03/23/24 22:25 Assessment & Plan Assessment & Plan (1) MDD (major depressive disorder), recurrent severe, without psychosis: Status: Acute Code(s): F33.2 - Major depressive disorder, recurrent severe without psychotic features (2) PTSD (post-traumatic stress disorder): Status: Acute Code(s): F43.10 - Post-traumatic stress disorder, unspecified (3) Alcohol use disorder: Status: Acute Code(s): F10.90 - Alcohol use, unspecified, uncomplicated (4) Alcohol withdrawal: Status: Acute Code(s): F10.939 - Alcohol use, unspecified with withdrawal, unspecified (5) Cocaine use disorder: Status: Acute Code(s): F14.10 - Cocaine abuse, uncomplicated (6) Opioid use disorder: Status: Acute Code(s): F11.90 - Opioid use, unspecified, uncomplicated (7) Acute UTI: Status: Acute Code(s): N39.0 - Urinary tract infection, site not specified Plan HPI: Patient is a 43-year-old female with history of depression, anxiety, cocaine, opiate, alcohol use disorder/dependence, on methadone, who self presents for worsening depression and SI in the face of homelessness and being off medications. Patient reports that she and her are /; about 4 months ago she moved out, became homeless and stopped taking her medications and became further embroiled in polysubstance abuse. Patient reports that her depression has been mounting over the past months and this past she felt suicidal, though no plan mentioned, and self presented for treatment. Patient is detoxing from alcohol, uncomfortable, tearful and wanting to keep interview short. She says she used to be on Wellbutrin, Seroquel 300 mg q.h.s., clonidine p.r.n. all of which she found helpful would like to get back on it. She also says she used to be on Xanax 2 mg t.i.d. which was what really helped her anxiety. Patient reports both auditory and visual hallucinations, seeing people in the room, hearing birds, hearing people talking which she says knows is not real and says only happens when she is detoxing from alcohol. Patient reports history of hypothyroid though reviewed labs with pt and TSH/free T3 WNL. Formulation/clinical reasoning: -Patient has long history of severe polysubstance abuse and is currently withdrawing from alcohol with symptoms of alcoholic hallucinosis, with both auditory and visual hallucinations which she knows are hallucinations. -Chronic anxiety and depression, off meds for 4 months -Patient is not scoring very high on CIWA but complaining of problematic withdrawal symptoms; patient just restarted on methadone which might be subduing some of her symptoms -Given the longevity and severity of alcohol abuse/dependence, will schedule both gabapentin and Ativan for now and then taper them off; will continue for breakthrough symptoms; -once detox more underway will restart Wellbutrin. Other Then for detox will avoid benzos for treatment Hospital course: 03/25: continue current management and treatment plan. Asked medicine to see for evaluation of possible cellulitis. 03/26: Lower GBP to 200 mg TID. DC Ativan 2 mg. Lower standing Ativan to 0.5 mg TID. Consider further taper of sedating medications. - Hospitalist PA Upon physical examination there is an approximately 3 cm erythematous and warm oval-shape lesion on left upper buttock. Possibly some mild swelling, but no appreciable induration or fluctuance. Currently little concern for abscess. Skin intact with no noticeable abrasions. Will treat with doxycycline 100 mg b.i.d. x5 days. 03/27 pt tearful, depressed, anxious. She agrees that her own anxiety is mixed with w/drawal symptoms; says ptsd is the worst, with frequent intrusive memories. Discussed history: no hx of cuong/manic episodes; hx of AH only in context of intoxication or withdrawal. Patient feels also withdrawing from opiates, ask if methadone can be increased, in past stable on 150 mg med trials include: Prozac: Not very helpful and sexual side effects Zoloft: Not helpful (though not sure if therapeutic dose/duration). Patient has otherwise dependent on benzodiazepines to deal with anxiety. Discussed medication management for depression anxiety including how benzodiazepines are not sustainable approach given her struggles with substance abuse and PTSD. She agrees to try Trileptal after marketing writer reviewed risks/side effects, see if that can help with anxiety. -regarding detox, marketing writer maintains that longevity and severity of alcohol abuse, combined with opiate withdrawal makes detox complicated; although patient does indeed appear sedated, typically goal for detox of alcohol is sleepy but arousable. Will continue with CIWA; Ativan scheduled was lowered to 0.5 t.i.d., but will increase to q.i.d. for now; will leave gabapentin 200 mg t.i.d. for now as well. Over the next several days will detox. Patient very much wants a program to help with getting sober. -She is engaged in treatment. -patient has been on Wellbutrin in the past; will consider restarting this however Lexapro might be beneficial per PTSD Plan: CV Q 15 minute checks START Trileptal 150mg BID for anxiety Ativan 0,5 mg qid. Will eventually taper off and DC Gabapentin 200 mg t.i.d. will eventually taper off and DC CIWA with Ativan p.r.n. for breakthrough symptoms Seroquel 300 mg q.h.s.; patient says she used to take this and it helps Will consider restarting Wellbutrin once stabilized from detox; also considering Lexapro Clonidine p.r.n. Patient reports history of hypothyroid; reviewed labs and currently TSH/free T3 WNL. Patient educated on: diagnosis, medication risk/benefits, substance abuse and therapeutic strategies Informed Consent: understands Reason for continued inpatient stay Substantial Risk for: rapid decompensation Time Spent With Patient Time: Total time managing care of this patient today ____ minutes.
[2024-03-27] MEDS: hydrOXYzine HCL 25 MG TABLET PO ×2 (10:25→16:56)
[2024-03-27] MEDS: LORazepam 1 MG TABLET PO ×6 (10:25→23:28)
[2024-03-27] MEDS: Nicotine 21 MG PATCH.TD24 TRANSDERMA (10:28)
[2024-03-27] MEDS: Nicotine Polacrilex 2 MG GUM 4 MG BUCCAL ×3 (10:28→23:29)
[2024-03-27] MEDS: OXcarbazepine 150 MG TABLET PO ×2 (12:35→19:23)
[2024-03-27 16:56] VITALS: BP 131/82
[2024-03-27] MEDS: Acetaminophen 325 MG TABLET 650 MG PO ×2 (16:56→23:28)
[2024-03-27] MEDS: methADONE HCl 20 MG/2 ML ORAL.CONC 10 MG PO (19:21)
[2024-03-27 19:23] VITALS: BP 138/84
[2024-03-27] MEDS: QUEtiapine Fumarate 300 MG TABLET PO (19:24)
[2024-03-27 20:00] VITALS: BP 116/69; PULSE 73; RESP 20; TEMP 36.6; O2SAT 98
[2024-03-28] MEDS: hydrOXYzine HCL 25 MG TABLET PO ×2 (05:57→14:16)
[2024-03-28 05:58] VITALS: BP 116/79
[2024-03-28] MEDS: cloNIDine HCL 0.1 MG TABLET PO ×2 (05:58→21:23)
[2024-03-28] MEDS: Acetaminophen 325 MG TABLET 650 MG PO ×3 (05:58→17:46)
--- NOTE | 2024-03-28 06:51 | PC.NURSE ---
I attempted to educate Consuelo this shift regarding her medications; she is under the impression that her ativan is for anxiety, not for her withdrawal symptoms. Consuelo told me that's not right; the Doctor was supposed to fix that today. At that point, Consuelo stated Ativan doesn't even work on my anxiety, only Xanax does. I don't have any addiction to those. I've been telling the Doctor that. This keno writer/runner attempted to discuss coping skills with Consuelo, but she immediately returned to the topic of medications and this keno writer/runner ended the conversation as it became a circular monologue by Consuelo. During this shift, Consuelo was found at least 3 times by this keno writer/runner folded over at the waist, with her eyes closed, mouth open, and knees appearing to be on the verge of buckling. Consuelo repeatedly stated she was stretching her back, but in fact appeared to be asleep as it took her some time to respond to her name when roused. Consuelo is making heavy use of PRNs, in spite of the fact that she appears to be well medicated.
[2024-03-28 08:00] VITALS: BP 124/80; PULSE 65; RESP 14; TEMP 37; O2SAT 99
[2024-03-28] MEDS: Folic Acid 1 MG TABLET PO (08:44)
[2024-03-28] MEDS: Doxycycline Monohydrate 100 MG CAPSULE PO ×2 (08:44→21:22)
[2024-03-28] MEDS: LORazepam 0.5 MG TABLET PO ×4 (08:44→21:23)
[2024-03-28] MEDS: OXcarbazepine 150 MG TABLET PO (08:44)
[2024-03-28] MEDS: Gabapentin 100 MG CAPSULE 200 MG PO ×3 (08:44→21:22)
[2024-03-28] MEDS: Thiamine HCL 100 MG TABLET PO (08:44)
[2024-03-28] MEDS: methADONE HCl 20 MG/2 ML ORAL.CONC 50 MG PO (08:45)
[2024-03-28] MEDS: LORazepam 1 MG TABLET PO ×3 (08:51→21:23)
--- NOTE | 2024-03-28 11:31 | HO.PSYCHPN ---
Subjective Subjective Date of Service: 03/28/24 Reason For Visit: Depression polysubstance use disorder PTSD Interim History: Met with patient; discussed with team Patient reports that anxiety is a little better with Trileptal and agrees to increase it further. She says she still struggling with depression and feels ready to restart Wellbutrin. Patient shared that she is getting along well with peers in the milieu and is enjoying interacting with them. Patient was upset that a male staff entered her room for checks because she was changing; patient discussed with nursing and matter considered accidental. Patient reports low back pain and wonders if it is due to induration on buttocks [employer] inspected buttocks with nurse present; erythematous area present but does not appear to be cellulitis. Patient already on antibiotics. Ordered lidocaine patch. Mental Status Exam Mental Status Exam Narrative: Pt is alert and oriented; behavior is cooperative, more calm, intermittently tearful; patient is not in distress; casual attire and adequate hygiene; mood is described as depressed and affect congruent, intermittently tearful but less so; eye contact appropriate; Speech is normal rate, volume and prosody and not pressured; no psychomotor agitation/retardation present; thought process is organized and goal directed; Thought content is on dealing with trauma history, detox, tx; otherwise pertinent to relevant topics and without any delusional content, paranoid ideations or grandiosity; no SI; no HI. No AVH. Patients insight and judgment impaired but improving Diagnostics Vital Signs (24Hr): Vital Signs - 24 hr 03/27/24 16:56 03/27/24 19:23 03/27/24 20:00 Temperature 97.9 F Pulse Rate 73 Respiratory Rate 20 Blood Pressure 131/82 138/84 116/69 Pulse Oximetry 98 Oxygen Delivery Method Room Air 03/28/24 05:58 03/28/24 08:00 Temperature 98.6 F Pulse Rate 65 Respiratory Rate 14 Blood Pressure 116/79 124/80 Pulse Oximetry 99 Oxygen Delivery Method Room Air BMI result Body Mass Index 23.4 Labs 03/23/24 12:03 03/23/24 12:03 Medications Medications Current Medications Acetaminophen (Acetaminophen 325 Mg Tablet) 650 mg PO Q6H PRN PRN Reason: Headache/Pain Mild Scale (1-3) Last Admin: 03/28/24 05:58 Dose: 650 mg Al Hydroxide/Mg Hydroxide (Magnesium Hydrox/Alum Hydrox 30 Ml Oral.Susp) 30 ml PO Q6H PRN PRN Reason: Heartburn/Nausea Clonidine HCl (Clonidine Hcl 0.1 Mg Tablet) 0.1 mg PO BEDTIME [facility]; Protocol Last Admin: 03/27/24 19:23 Dose: 0.1 mg Clonidine HCl (Clonidine Hcl 0.1 Mg Tablet) 0.1 mg PO Q4H PRN; Protocol PRN Reason: mild anxiety Last Admin: 03/28/24 05:58 Dose: 0.1 mg Doxycycline Monohydrate (Doxycycline Monohydrate 100 Mg Capsule) 100 mg PO BID [facility] Last Admin: 03/28/24 08:44 Dose: 100 mg Folic Acid (Folic Acid 1 Mg Tablet) 1 mg PO DAILY [facility] Last Admin: 03/28/24 08:44 Dose: 1 mg Gabapentin (Gabapentin 100 Mg Capsule) 200 mg PO TID [facility] Last Admin: 03/28/24 08:44 Dose: 200 mg Hydroxyzine HCl (Hydroxyzine Hcl 25 Mg Tablet) 25 mg PO Q6H PRN PRN Reason: Anxiety Last Admin: 03/28/24 05:57 Dose: 25 mg Lorazepam (Lorazepam 1 Mg Tablet) 1 mg PO Q2H PRN PRN Reason: ciwa 6-12 Last Admin: 03/28/24 08:51 Dose: 1 mg Lorazepam (Lorazepam 1 Mg Tablet) 2 mg PO Q2H PRN PRN Reason: CIWA 13 and above Lorazepam (Lorazepam 0.5 Mg Tablet) 0.5 mg PO QID [facility] Last Admin: 03/28/24 08:44 Dose: 0.5 mg Magnesium Hydroxide (Milk Of Magnesia 30 Ml Oral.Susp) 30 ml PO DAILY PRN PRN Reason: Constipation Methadone HCl (Methadone Hcl 20 Mg/2 Ml Oral.Conc) 10 mg PO BEDTIME [facility] Last Admin: 03/27/24 19:21 Dose: 10 mg Methadone HCl (Methadone Hcl 20 Mg/2 Ml Oral.Conc) 50 mg PO DAILY [facility] Last Admin: 03/28/24 08:45 Dose: 50 mg Nicotine (Nicotine 21 Mg Patch.Td24) 21 mg TRANSDERMA DAILY PRN PRN Reason: nicotine cravings Last Admin: 03/27/24 10:28 Dose: 21 mg Nicotine Polacrilex (Nicotine Polacrilex 2 Mg Gum) 4 mg BUCCAL Q2H PRN PRN Reason: Nicotine Cravings Last Admin: 03/27/24 23:29 Dose: 4 mg Oxcarbazepine (Oxcarbazepine 150 Mg Tablet) 150 mg PO BID [facility] Last Admin: 03/28/24 08:44 Dose: 150 mg Quetiapine Fumarate (Quetiapine Fumarate 300 Mg Tablet) 300 mg PO BEDTIME [facility] Last Admin: 03/27/24 19:24 Dose: 300 mg Thiamine HCl (Thiamine Hcl 100 Mg Tablet) 100 mg PO DAILY [facility] Last Admin: 03/28/24 08:44 Dose: 100 mg Allergies Allergies Allergy/AdvReac Type Severity Reaction Status Date / Time trazodone AdvReac Severe RLS Verified 03/23/24 22:25 Assessment & Plan Assessment & Plan (1) MDD (major depressive disorder), recurrent severe, without psychosis: Status: Acute Code(s): F33.2 - Major depressive disorder, recurrent severe without psychotic features (2) PTSD (post-traumatic stress disorder): Status: Acute Code(s): F43.10 - Post-traumatic stress disorder, unspecified (3) Alcohol use disorder: Status: Acute Code(s): F10.90 - Alcohol use, unspecified, uncomplicated (4) Alcohol withdrawal: Status: Acute Code(s): F10.939 - Alcohol use, unspecified with withdrawal, unspecified (5) Cocaine use disorder: Status: Acute Code(s): F14.10 - Cocaine abuse, uncomplicated (6) Opioid use disorder: Status: Acute Code(s): F11.90 - Opioid use, unspecified, uncomplicated (7) Acute UTI: Status: Acute Code(s): N39.0 - Urinary tract infection, site not specified Plan HPI: Patient is a 43-year-old female with history of depression, anxiety, cocaine, opiate, alcohol use disorder/dependence, on methadone, who self presents for worsening depression and SI in the face of homelessness and being off medications. Patient reports that she and her are /; about 4 months ago she moved out, became homeless and stopped taking her medications and became further embroiled in polysubstance abuse. Patient reports that her depression has been mounting over the past months and this past she felt suicidal, though no plan mentioned, and self presented for treatment. Patient is detoxing from alcohol, uncomfortable, tearful and wanting to keep interview short. She says she used to be on Wellbutrin, Seroquel 300 mg q.h.s., clonidine p.r.n. all of which she found helpful would like to get back on it. She also says she used to be on Xanax 2 mg t.i.d. which was what really helped her anxiety. Patient reports both auditory and visual hallucinations, seeing people in the room, hearing birds, hearing people talking which she says knows is not real and says only happens when she is detoxing from alcohol. Patient reports history of hypothyroid though reviewed labs with pt and TSH/free T3 WNL. Formulation/clinical reasoning: -Patient has long history of severe polysubstance abuse and is currently withdrawing from alcohol with symptoms of alcoholic hallucinosis, with both auditory and visual hallucinations which she knows are hallucinations. -Chronic anxiety and depression, off meds for 4 months -Patient is not scoring very high on CIWA but complaining of problematic withdrawal symptoms; patient just restarted on methadone which might be subduing some of her symptoms -Given the longevity and severity of alcohol abuse/dependence, will schedule both gabapentin and Ativan for now and then taper them off; will continue for breakthrough symptoms; -once detox more underway will restart Wellbutrin. Other Then for detox will avoid benzos for treatment Hospital course: 03/25: continue current management and treatment plan. Asked medicine to see for evaluation of possible cellulitis. 03/26: Lower GBP to 200 mg TID. DC Ativan 2 mg. Lower standing Ativan to 0.5 mg TID. Consider further taper of sedating medications. - Hospitalist PA Upon physical examination there is an approximately 3 cm erythematous and warm oval-shape lesion on left upper buttock. Possibly some mild swelling, but no appreciable induration or fluctuance. Currently little concern for abscess. Skin intact with no noticeable abrasions. Will treat with doxycycline 100 mg b.i.d. x5 days. 03/27 pt tearful, depressed, anxious. She agrees that her own anxiety is mixed with w/drawal symptoms; says ptsd is the worst, with frequent intrusive memories. Discussed history: no hx of cuong/manic episodes; hx of AH only in context of intoxication or withdrawal. Patient feels also withdrawing from opiates, ask if methadone can be increased, in past stable on 150 mg med trials include: Prozac: Not very helpful and sexual side effects Zoloft: Not helpful (though not sure if therapeutic dose/duration). Patient has otherwise dependent on benzodiazepines to deal with anxiety. Discussed medication management for depression anxiety including how benzodiazepines are not sustainable approach given her struggles with substance abuse and PTSD. She agrees to try Trileptal after law writer reviewed risks/side effects, see if that can help with anxiety. -regarding detox, law writer maintains that longevity and severity of alcohol abuse, combined with opiate withdrawal makes detox complicated; although patient does indeed appear sedated, typically goal for detox of alcohol is sleepy but arousable. Will continue with CIWA; Ativan scheduled was lowered to 0.5 t.i.d., but will increase to q.i.d. for now; will leave gabapentin 200 mg t.i.d. for now as well. Over the next several days will detox. Patient very much wants a program to help with getting sober. -She is engaged in treatment. -patient has been on Wellbutrin in the past; will consider restarting this however Lexapro might be beneficial per PTSD 03/28 Patient reports that anxiety is a little better with Trileptal and agrees to increase it further. She says she still struggling with depression and feels ready to restart Wellbutrin. Patient shared that she is getting along well with peers in the milieu and is enjoying interacting with them. Patient was upset that a male staff entered her room for checks because she was changing; patient discussed with nursing and matter considered accidental. Patient reports low back pain and wonders if it is due to induration on buttocks [employer] inspected buttocks with nurse present; erythematous area present but does not appear to be cellulitis. Patient already on antibiotics. Ordered lidocaine patch. -will increase Trileptal and restart Wellbutrin which she is done well on in the past; also will increase methadone at her request for cravings and withdrawal symptoms; will likely be able to DC CIWA soon Plan: CV Q 15 minute checks START Wellbutrin XL 150 in the morning; patient has been on before and says helpful depression INCREASE to Trileptal 300mg BID for anxiety INCREASE methadone to 60 mg in the morning for continued cravings; patient said she is to be on 150 mg Ativan 0,5 mg qid. Will eventually taper off and DC Gabapentin 200 mg t.i.d. will eventually taper off and DC CIWA with Ativan p.r.n. likely will be able to DC soon Seroquel 300 mg q.h.s.; patient says she used to take this and it helps Clonidine p.r.n. Patient reports history of hypothyroid; reviewed labs and currently TSH/free T3 WNL. Patient educated on: diagnosis, medication risk/benefits, substance abuse, therapeutic strategies and medical condition Informed Consent: understands and further education needed Reason for continued inpatient stay Substantial Risk for: rapid decompensation Time Spent With Patient Time: Total time managing care of this patient today ____ minutes.
[2024-03-28] MEDS: Nicotine Polacrilex 2 MG GUM 4 MG BUCCAL ×3 (12:04→17:46)
[2024-03-28] MEDS: Lidocaine 4 % Patch ADH..PATCH 1 PATCH TRANSDERMA ×2 (15:20→22:00)
[2024-03-28 21:15] VITALS: BP 133/80; PULSE 73; RESP 16; TEMP 37.1; O2SAT 98
[2024-03-28] MEDS: Nicotine 21 MG PATCH.TD24 TRANSDERMA (21:21)
[2024-03-28] MEDS: OXcarbazepine 300 MG TABLET PO (21:22)
[2024-03-28] MEDS: QUEtiapine Fumarate 300 MG TABLET PO (21:23)
[2024-03-28] MEDS: methADONE HCl 20 MG/2 ML ORAL.CONC 10 MG PO (21:24)
--- NOTE | 2024-03-29 00:14 | PC.NURSE ---
Consuelo was sleeping at 0000. patient did not appear in distress, no tossing and turning. No sweat visible on skin. RR-14. Patient was not awoken for full assessment.
[2024-03-29] MEDS: Acetaminophen 325 MG TABLET 650 MG PO ×2 (02:01→17:18)
[2024-03-29] MEDS: hydrOXYzine HCL 25 MG TABLET PO (02:01)
[2024-03-29] MEDS: LORazepam 1 MG TABLET PO (02:05)
[2024-03-29] MEDS: Nicotine Polacrilex 2 MG GUM 4 MG BUCCAL ×2 (03:56→20:47)
[2024-03-29 05:01] LABS: CT PCR NOT DETECTED (Not Detect.); NG PCR NOT DETECTED (Not Detect.)
[2024-03-29 08:00] VITALS: BP 120/64; PULSE 78; RESP 18; TEMP 36.9; O2SAT 99
[2024-03-29] MEDS: methADONE HCl 20 MG/2 ML ORAL.CONC 60 MG PO (08:47)
[2024-03-29] MEDS: LORazepam 0.5 MG TABLET PO ×3 (08:50→20:45)
[2024-03-29] MEDS: Thiamine HCL 100 MG TABLET PO (08:50)
[2024-03-29] MEDS: Gabapentin 100 MG CAPSULE 200 MG PO ×2 (08:51→21:00)
[2024-03-29] MEDS: buPROPion HCl XL 150 MG TAB.ER.24H PO (08:51)
[2024-03-29] MEDS: Doxycycline Monohydrate 100 MG CAPSULE PO ×2 (08:51→20:46)
[2024-03-29] MEDS: OXcarbazepine 300 MG TABLET PO ×2 (08:51→20:46)
[2024-03-29] MEDS: Folic Acid 1 MG TABLET PO (08:51)
[2024-03-29] MEDS: LORazepam 1 MG TABLET 2 MG PO (08:56)
--- NOTE | 2024-03-29 09:34 | HO.PSYCHPN ---
Subjective Subjective Date of Service: 03/29/24 Reason For Visit: Depression polysubstance use disorder PTSD Interim History: Met with patient; discussed with team Anxious and depressed. Not sure that the Wellbutrin has made much difference yet but will continue to take it. Patient remains quite sedated throughout the day, nodding off in the middle of conversation. She does not know why. Patient remains sensitive struggling to not take interactions personally. Complains of lower back pain. With female nurse present, singer songwriter examined lower back and patient had tenderness on palpation in the sacral vertebra. Reports history of IV cocaine/heroin use however says it is quite some time, though is vague on the timeline. Mental Status Exam Mental Status Exam Narrative: Pt is alert and oriented; behavior is cooperative, more calm, intermittently tearful; patient is not in distress; casual attire and adequate hygiene; mood is described as depressed and affect congruent, intermittently tearful but less so; eye contact appropriate; Speech is normal rate, volume and prosody and not pressured; no psychomotor agitation/retardation present; thought process is organized and goal directed; Thought content is on dealing with trauma history, detox, tx; otherwise pertinent to relevant topics and without any delusional content, paranoid ideations or grandiosity; no SI; no HI. No AVH. Patients insight and judgment impaired but improving Diagnostics Vital Signs (24Hr): Vital Signs - 24 hr 03/28/24 21:15 Temperature 98.8 F Pulse Rate 73 Respiratory Rate 16 Blood Pressure 133/80 Pulse Oximetry 98 Oxygen Delivery Method Room Air BMI result Body Mass Index 23.4 Labs 03/29/24 12:25 03/29/24 12:25 Labs: Laboratory Results - last 48 hr 03/29/24 03:00 Chlam trachomat DNA PCR NOT DETECTED N.gonorrhoeae DNA (PCR) NOT DETECTED Medications Medications Current Medications Acetaminophen (Acetaminophen 325 Mg Tablet) 650 mg PO Q6H PRN PRN Reason: Headache/Pain Mild Scale (1-3) Last Admin: 03/29/24 02:01 Dose: 650 mg Al Hydroxide/Mg Hydroxide (Magnesium Hydrox/Alum Hydrox 30 Ml Oral.Susp) 30 ml PO Q6H PRN PRN Reason: Heartburn/Nausea Bupropion HCl (Bupropion Hcl Xl 150 Mg Tab.Er.24h) 150 mg PO DAILY KAIT Last Admin: 03/29/24 08:51 Dose: 150 mg Clonidine HCl (Clonidine Hcl 0.1 Mg Tablet) 0.1 mg PO BEDTIME [facility]; Protocol Last Admin: 03/28/24 21:23 Dose: 0.1 mg Clonidine HCl (Clonidine Hcl 0.1 Mg Tablet) 0.1 mg PO Q4H PRN; Protocol PRN Reason: mild anxiety Last Admin: 03/28/24 05:58 Dose: 0.1 mg Doxycycline Monohydrate (Doxycycline Monohydrate 100 Mg Capsule) 100 mg PO BID [facility] Last Admin: 03/29/24 08:51 Dose: 100 mg Folic Acid (Folic Acid 1 Mg Tablet) 1 mg PO DAILY [facility] Last Admin: 03/29/24 08:51 Dose: 1 mg Gabapentin (Gabapentin 100 Mg Capsule) 200 mg PO TID [facility] Last Admin: 03/29/24 08:51 Dose: 200 mg Hydroxyzine HCl (Hydroxyzine Hcl 25 Mg Tablet) 25 mg PO Q6H PRN PRN Reason: Anxiety Last Admin: 03/29/24 02:01 Dose: 25 mg Lidocaine (Lidocaine 4 % Patch Adh..Patch) 1 patch TRANSDERMA DAILY PRN; Protocol PRN Reason: lower back pain Last Admin: 03/28/24 15:20 Dose: 1 patch Lorazepam (Lorazepam 0.5 Mg Tablet) 0.5 mg PO QID [facility] Last Admin: 03/29/24 08:50 Dose: 0.5 mg Magnesium Hydroxide (Milk Of Magnesia 30 Ml Oral.Susp) 30 ml PO DAILY PRN PRN Reason: Constipation Methadone HCl (Methadone Hcl 20 Mg/2 Ml Oral.Conc) 60 mg PO DAILY [facility] Last Admin: 03/29/24 08:47 Dose: 60 mg Nicotine (Nicotine 21 Mg Patch.Td24) 21 mg TRANSDERMA DAILY PRN PRN Reason: nicotine cravings Last Admin: 03/28/24 21:21 Dose: 21 mg Nicotine Polacrilex (Nicotine Polacrilex 2 Mg Gum) 4 mg BUCCAL Q2H PRN PRN Reason: Nicotine Cravings Last Admin: 03/29/24 03:56 Dose: 4 mg Oxcarbazepine (Oxcarbazepine 300 Mg Tablet) 300 mg PO BID [facility] Last Admin: 03/29/24 08:51 Dose: 300 mg Quetiapine Fumarate (Quetiapine Fumarate 300 Mg Tablet) 300 mg PO BEDTIME [facility] Last Admin: 03/28/24 21:23 Dose: 300 mg Thiamine HCl (Thiamine Hcl 100 Mg Tablet) 100 mg PO DAILY KAIT Last Admin: 03/29/24 08:50 Dose: 100 mg Allergies Allergies Allergy/AdvReac Type Severity Reaction Status Date / Time trazodone AdvReac Severe RLS Verified 03/23/24 22:25 Assessment & Plan Assessment & Plan (1) MDD (major depressive disorder), recurrent severe, without psychosis: Status: Acute Code(s): F33.2 - Major depressive disorder, recurrent severe without psychotic features (2) PTSD (post-traumatic stress disorder): Status: Acute Code(s): F43.10 - Post-traumatic stress disorder, unspecified (3) Alcohol use disorder: Status: Acute Code(s): F10.90 - Alcohol use, unspecified, uncomplicated (4) Alcohol withdrawal: Status: Acute Code(s): F10.939 - Alcohol use, unspecified with withdrawal, unspecified (5) Cocaine use disorder: Status: Acute Code(s): F14.10 - Cocaine abuse, uncomplicated (6) Opioid use disorder: Status: Acute Code(s): F11.90 - Opioid use, unspecified, uncomplicated (7) Acute UTI: Status: Acute Code(s): N39.0 - Urinary tract infection, site not specified Plan HPI: Patient is a 43-year-old female with history of depression, anxiety, cocaine, opiate, alcohol use disorder/dependence, on methadone, who self presents for worsening depression and SI in the face of homelessness and being off medications. Patient reports that she and her are /; about 4 months ago she moved out, became homeless and stopped taking her medications and became further embroiled in polysubstance abuse. Patient reports that her depression has been mounting over the past months and this past she felt suicidal, though no plan mentioned, and self presented for treatment. Patient is detoxing from alcohol, uncomfortable, tearful and wanting to keep interview short. She says she used to be on Wellbutrin, Seroquel 300 mg q.h.s., clonidine p.r.n. all of which she found helpful would like to get back on it. She also says she used to be on Xanax 2 mg t.i.d. which was what really helped her anxiety. Patient reports both auditory and visual hallucinations, seeing people in the room, hearing birds, hearing people talking which she says knows is not real and says only happens when she is detoxing from alcohol. Patient reports history of hypothyroid though reviewed labs with pt and TSH/free T3 WNL. Formulation/clinical reasoning: -Patient has long history of severe polysubstance abuse and is currently withdrawing from alcohol with symptoms of alcoholic hallucinosis, with both auditory and visual hallucinations which she knows are hallucinations. -Chronic anxiety and depression, off meds for 4 months -Patient is not scoring very high on CIWA but complaining of problematic withdrawal symptoms; patient just restarted on methadone which might be subduing some of her symptoms -Given the longevity and severity of alcohol abuse/dependence, will schedule both gabapentin and Ativan for now and then taper them off; will continue for breakthrough symptoms; -once detox more underway will restart Wellbutrin. Other Then for detox will avoid benzos for treatment Hospital course: 03/25: continue current management and treatment plan. Asked medicine to see for evaluation of possible cellulitis. 03/26: Lower GBP to 200 mg TID. DC Ativan 2 mg. Lower standing Ativan to 0.5 mg TID. Consider further taper of sedating medications. - Hospitalist PA Upon physical examination there is an approximately 3 cm erythematous and warm oval-shape lesion on left upper buttock. Possibly some mild swelling, but no appreciable induration or fluctuance. Currently little concern for abscess. Skin intact with no noticeable abrasions. Will treat with doxycycline 100 mg b.i.d. x5 days. 03/27 pt tearful, depressed, anxious. She agrees that her own anxiety is mixed with w/drawal symptoms; says ptsd is the worst, with frequent intrusive memories. Discussed history: no hx of cuong/manic episodes; hx of AH only in context of intoxication or withdrawal. Patient feels also withdrawing from opiates, ask if methadone can be increased, in past stable on 150 mg med trials include: Prozac: Not very helpful and sexual side effects Zoloft: Not helpful (though not sure if therapeutic dose/duration). Patient has otherwise dependent on benzodiazepines to deal with anxiety. Discussed medication management for depression anxiety including how benzodiazepines are not sustainable approach given her struggles with substance abuse and PTSD. She agrees to try Trileptal after singer songwriter reviewed risks/side effects, see if that can help with anxiety. -regarding detox, singer songwriter maintains that longevity and severity of alcohol abuse, combined with opiate withdrawal makes detox complicated; although patient does indeed appear sedated, typically goal for detox of alcohol is sleepy but arousable. Will continue with CIWA; Ativan scheduled was lowered to 0.5 t.i.d., but will increase to q.i.d. for now; will leave gabapentin 200 mg t.i.d. for now as well. Over the next several days will detox. Patient very much wants a program to help with getting sober. -She is engaged in treatment. -patient has been on Wellbutrin in the past; will consider restarting this however Lexapro might be beneficial per PTSD 03/28 Patient reports that anxiety is a little better with Trileptal and agrees to increase it further. She says she still struggling with depression and feels ready to restart Wellbutrin. Patient shared that she is getting along well with peers in the milieu and is enjoying interacting with them. Patient was upset that a male staff entered her room for checks because she was changing; patient discussed with nursing and matter considered accidental. Patient reports low back pain and wonders if it is due to induration on buttocks Automotive Technician Instructor inspected buttocks with nurse present; erythematous area present but does not appear to be cellulitis. Patient already on antibiotics. Ordered lidocaine patch. -will increase Trileptal and restart Wellbutrin which she is done well on in the past; also will increase methadone at her request for cravings and withdrawal symptoms; will likely be able to DC CIWA soon 03/29 Anxious and depressed. Not sure that the Wellbutrin has made much difference yet but will continue to take it. Patient remains quite sedated throughout the day, nodding off in the middle of conversation. She does not know why. Patient remains sensitive struggling to not take interactions personally. Complains of lower back pain. With female nurse present, singer songwriter examined lower back and patient had tenderness on palpation in the sacral vertebra. Reports history of IV cocaine/heroin use however says it is quite some time, though is vague on the timeline. -patient retracted 3 day notice; very much wants to go to a program to pursue sobriety -will order CBC, CMP, ammonia, ESR, CRP; will also get plain film x-ray on lumbar spine. Low suspicion for osteomyelitis but looking to rule out Plan: CV Q 15 minute checks DC CIWA and continue with Ativan taper Ativan 0,5 mg qid. Will eventually taper off and DC Gabapentin 200 mg t.i.d. will eventually taper off and DC Continue Wellbutrin XL 150 in the morning; patient has been on before and says helpful depression Continue to Trileptal 300mg BID for anxiety Continue methadone to 60 mg in the morning for continued cravings; patient said she is to be on 150 mg Seroquel 300 mg q.h.s.; patient says she used to take this and it helps Clonidine p.r.n. Patient reports history of hypothyroid; reviewed labs and currently TSH/free T3 WNL. Patient educated on: diagnosis, medication risk/benefits, substance abuse and therapeutic strategies Informed Consent: understands Reason for continued inpatient stay Substantial Risk for: stable for discharge Time Spent With Patient Time: Total time managing care of this patient today ____ minutes.
[2024-03-29 10:11] LABS: Syphilis Screen Nonreactive (Nonreactive)
[2024-03-29 12:32] LABS: MANUAL DIFF FLAG NO
[2024-03-29 12:36] LABS: Basophils Percent Auto 0.4 % (0-2); Eosinophils Absolute Auto 0.2 X10*3/uL (0.0-0.4); Eosinophils Percent Auto 3.5 % (0-4); Hematocrit 38.7 % (37.0-47.0); Hemoglobin 13.1 g/dl (12.0-16.0); Imm Gran Abs Auto 0.02 X10*3/uL (0.00-0.03); Imm Gran Pct Auto 0.3 % (0.0-0.4); Lymphocytes Absolute Auto 1.9 X10*3/uL (1.2-4.9); Mean Corpuscular HGB Conc 33.9 g/dl (31.0-35.0); Mean Corpuscular Hemoglobin 29.6 pg (27.0-33.0); Mean Corpuscular Volume 87.6 fL (80.0-98.0); Mean Platelet Volume 11.8 fL (9.4-12.3); Monocytes Absolute Auto 0.7 X10*3/uL (0.1-1.2); Monocytes Percent Auto 9.9 % (2-11); Neutrophils Percent Auto 57.9 % (45-73); Platelet Count 176 X10*3/uL (160-400); Red Blood Count 4.42 X10*6/uL (4.20-5.50); Red Cell Distribution Width 13.1 % (11.0-16.0); White Blood Count 6.9 X10*3/uL (4.8-10.8)
[2024-03-29 12:41] LABS: Ammonia 32 umol/L (13-55)
[2024-03-29 12:49] LABS: C Reactive Protein 0.83 mg/dL (< or = 0.50)
[2024-03-29 12:50] LABS: Alanine Aminotransferase 83 U/L (0-31); Albumin Level 4.1 g/dL (3.5-5.0); Alkaline Phosphatase 71 U/L (39-117); Anion Gap 10 (12-20); Aspartate Amino Transferase 71 U/L (5-31); Bilirubin Total 0.2 mg/dL (0.0-1.0); Blood Urea Nitrogen 14 mg/dL (9-16); Calcium 9.6 mg/dL (8.4-10.2); Carbon Dioxide 33 mmol/L (22-29); Chloride 100 mmol/L (96-108); Creatinine Clr Calc Pharmacy 76.8; Estimated Glomerular Filt Rate > 60; Glucose Random 97 mg/dL (60-115); Magnesium 1.7 mg/dL (1.6-2.6); Potassium 4.4 mmol/L (3.3-5.1); Sodium 139 mmol/L (135-145); Total Protein 6.4 g/dL (6.5-8.0)
[2024-03-29 13:16] LABS: Erythrocyte Sedimentation Rate 9 MM/HR (0-20)
[2024-03-29] MEDS: Lidocaine 4 % Patch ADH..PATCH 1 PATCH TRANSDERMA (17:18)
--- NOTE | 2024-03-29 17:46 | PM.EVENT ---
Event Note Date of Service: 03/29/24 Event Note: patient has been nodding off throughout admission; some speculation that perhaps patient has used contraband though nothing has been observed. Ordered room and skin search both negative. UDS pending Time Spent With Patient Time: Total time managing care of this patient today ____ minutes.
[2024-03-29 20:00] VITALS: BP 147/84; PULSE 77; RESP 20; TEMP 36.9; O2SAT 99
[2024-03-29 20:45] VITALS: BP 140/82
[2024-03-29] MEDS: cloNIDine HCL 0.1 MG TABLET PO (20:45)
[2024-03-29] MEDS: QUEtiapine Fumarate 300 MG TABLET PO (20:45)
[2024-03-29] MEDS: Docusate Sodium 100 MG CAPSULE PO (20:47)
[2024-03-29 21:26] LABS: Amphetamine Screen Urine Not Detected (Not Detect); Barbiturates, Urine Not Detected (Not Detect); Benzodiazepines Screen Urine Not Detected (Not Detect); Buprenorphine Scr Not Detected (Not Detect); Cannabinoid Screen Urine POSITIVE (Not Detect); Cocaine Screen Urine Not Detected (Not Detect); Fentanyl, urine Not Detected (Not Detect); Methadone Screen, Urine Positive (Not Detect); Opiate Screen Urine Not Detected (Not Detect); Oxycodone Screen Urine Not Detected (Not Detect); Phencyclidine Screen Urine Not Detected (Not Detect)
[2024-03-29] MEDS: Ibuprofen 600 MG TABLET PO (21:31)
[2024-03-29] MEDS: Cyclobenzaprine HCl 10 MG TABLET PO (21:31)
--- NOTE | 2024-03-30 00:45 | PC.NURSE ---
Pt. signed another 3 day notice this evening which will on 04/05/2024.
[2024-03-30 02:17] VITALS: BP 154/81
[2024-03-30] MEDS: cloNIDine HCL 0.1 MG TABLET PO ×3 (02:17→21:02)
[2024-03-30] MEDS: Acetaminophen 325 MG TABLET 650 MG PO ×3 (02:17→17:59)
[2024-03-30] MEDS: hydrOXYzine HCL 25 MG TABLET PO ×2 (02:17→21:04)
[2024-03-30] MEDS: Nicotine Polacrilex 2 MG GUM 4 MG BUCCAL ×3 (02:39→16:53)
[2024-03-30 06:10] VITALS: BP 144/86
[2024-03-30 08:00] VITALS: BP 120/70; PULSE 70; RESP 14; TEMP 36.6; O2SAT 97
[2024-03-30] MEDS: buPROPion HCl XL 150 MG TAB.ER.24H PO (08:28)
[2024-03-30] MEDS: methADONE HCl 20 MG/2 ML ORAL.CONC 60 MG PO (08:28)
[2024-03-30] MEDS: Docusate Sodium 100 MG CAPSULE PO ×2 (08:29→21:03)
[2024-03-30] MEDS: Gabapentin 100 MG CAPSULE PO ×3 (08:29→21:02)
[2024-03-30] MEDS: Folic Acid 1 MG TABLET PO (08:29)
[2024-03-30] MEDS: OXcarbazepine 300 MG TABLET PO ×2 (08:29→21:02)
[2024-03-30] MEDS: Doxycycline Monohydrate 100 MG CAPSULE PO ×2 (08:29→21:01)
[2024-03-30] MEDS: Thiamine HCL 100 MG TABLET PO (08:29)
[2024-03-30] MEDS: LORazepam 0.5 MG TABLET PO ×4 (08:29→21:02)
--- NOTE | 2024-03-30 10:31 | HO.PSYCHPN ---
Subjective Subjective Date of Service: 03/30/24 Reason For Visit: Depression polysubstance use disorder PTSD Interim History: Met with patient; discussed with team Patient complaining of increased lower back pain; discussed with hospitalist CLAYTON and lumbar an abdominal CT scan ordered; low suspicion for osteomyelitis given labs and vitals and hospitalist CLAYTON felt that CT could be obtained on the following day. LFTs moderately increased with a continued slight increasing; while this could very possibly be methadone, Hep B/C profile obtained given history of IV drug use; HIV lab ordered. Discussed these things with patient agrees with plan. Patient also asked why methadone was not further increased and accepted that current dose seems adequate for now given daytime sedation which she agreed; of note patient is more alert. Mental Status Exam Mental Status Exam Narrative: Pt is alert and oriented; behavior is cooperative, more calm, intermittently tearful; patient is not in distress; casual attire and adequate hygiene; mood is described as depressed and affect congruent, intermittently tearful but less so; eye contact appropriate; Speech is normal rate, volume and prosody and not pressured; no psychomotor agitation/retardation present; thought process is organized and goal directed; Thought content is on dealing with trauma history, detox, tx; otherwise pertinent to relevant topics and without any delusional content, paranoid ideations or grandiosity; no SI; no HI. No AVH. Patients insight and judgment impaired but improving Diagnostics Vital Signs (24Hr): Vital Signs - 24 hr 03/29/24 20:00 03/29/24 20:45 03/30/24 02:17 Temperature 98.5 F Pulse Rate 77 Respiratory Rate 20 Blood Pressure 147/84 H 140/82 H 154/81 H Pulse Oximetry 99 Oxygen Delivery Method Room Air 03/30/24 06:10 03/30/24 08:00 Temperature 97.8 F Pulse Rate 70 Respiratory Rate 14 Blood Pressure 144/86 H 120/70 Pulse Oximetry 97 Oxygen Delivery Method Room Air BMI result Body Mass Index 23.4 Labs 03/29/24 12:25 03/29/24 12:25 Labs: Laboratory Results - last 48 hr 03/29/24 03/29/24 03/29/24 03:00 09:07 12:25 WBC 6.9 RBC 4.42 Hgb 13.1 Hct 38.7 MCV 87.6 MCH 29.6 MCHC 33.9 RDW 13.1 Plt Count 176 D MPV 11.8 Immature Gran % (Auto) 0.3 Neut % (Auto) 57.9 Lymph % (Auto) 28.0 [place] % (Auto) 9.9 Eos % (Auto) 3.5 Baso % (Auto) 0.4 Lymph # (Auto) 1.9 [place] # (Auto) 0.7 Eos # (Auto) 0.2 Baso # (Auto) 0.0 Abs Immat Gran (auto) 0.02 Absolute Neuts (auto) 4.0 Absolute Nucleated RBC 0.000 Nucleated RBC % (auto) 0.0 ESR 9 Sodium 139 Potassium 4.4 Chloride 100 Carbon Dioxide 33 H Anion Gap 10 L BUN 14 Creatinine 0.72 Estim Creat Clear Calc 76.8 Estimated GFR > 60 Random Glucose 97 Calcium 9.6 Magnesium 1.7 Total Bilirubin 0.2 AST 71 H ALT 83 H Alkaline Phosphatase 71 Ammonia 32 C-Reactive Protein 0.83 H Total Protein 6.4 L Albumin 4.1 Urine Opiates Screen Ur Buprenorphine Scrn Ur Oxycodone Screen Urine Methadone Screen Urine Fentanyl Screen Ur Barbiturates Screen Ur Phencyclidine Scrn Ur Amphetamines Screen U Benzodiazepines Scrn Urine Cocaine Screen U Marijuana (THC) Screen T.pallidum Ab (EIA) Nonreactive Chlam trachomat DNA PCR NOT DETECTED N.gonorrhoeae DNA (PCR) NOT DETECTED 03/29/24 20:00 WBC RBC Hgb Hct MCV MCH MCHC RDW Plt Count MPV Immature Gran % (Auto) Neut % (Auto) Lymph % (Auto) [place] % (Auto) Eos % (Auto) Baso % (Auto) Lymph # (Auto) [place] # (Auto) Eos # (Auto) Baso # (Auto) Abs Immat Gran (auto) Absolute Neuts (auto) Absolute Nucleated RBC Nucleated RBC % (auto) ESR Sodium Potassium Chloride Carbon Dioxide Anion Gap BUN Creatinine Estim Creat Clear Calc Estimated GFR Random Glucose Calcium Magnesium Total Bilirubin AST ALT Alkaline Phosphatase Ammonia C-Reactive Protein Total Protein Albumin Urine Opiates Screen Not Detected Ur Buprenorphine Scrn Not Detected Ur Oxycodone Screen Not Detected Urine Methadone Screen Positive H Urine Fentanyl Screen Not Detected Ur Barbiturates Screen Not Detected Ur Phencyclidine Scrn Not Detected Ur Amphetamines Screen Not Detected U Benzodiazepines Scrn Not Detected Urine Cocaine Screen Not Detected U Marijuana (THC) Screen POSITIVE H T.pallidum Ab (EIA) Chlam trachomat DNA PCR N.gonorrhoeae DNA (PCR) Imaging Radiology Impressions: ITS Impressions Lumbar Spine X-Ray 03/29/24 14:36 IMPRESSION: Unremarkable examination. Medications Medications Current Medications Acetaminophen (Acetaminophen 325 Mg Tablet) 650 mg PO Q6H PRN PRN Reason: Headache/Pain Mild Scale (1-3) Last Admin: 03/30/24 08:28 Dose: 650 mg Al Hydroxide/Mg Hydroxide (Magnesium Hydrox/Alum Hydrox 30 Ml Oral.Susp) 30 ml PO Q6H PRN PRN Reason: Heartburn/Nausea Bupropion HCl (Bupropion Hcl Xl 150 Mg Tab.Er.24h) 150 mg PO DAILY [facility] Last Admin: 03/30/24 08:28 Dose: 150 mg Clonidine HCl (Clonidine Hcl 0.1 Mg Tablet) 0.1 mg PO BEDTIME [facility]; Protocol Last Admin: 03/29/24 20:45 Dose: 0.1 mg Clonidine HCl (Clonidine Hcl 0.1 Mg Tablet) 0.1 mg PO Q4H PRN; Protocol PRN Reason: mild anxiety Last Admin: 03/30/24 06:10 Dose: 0.1 mg Docusate Sodium (Docusate Sodium 100 Mg Capsule) 100 mg PO BID [facility] Last Admin: 03/30/24 08:29 Dose: 100 mg Doxycycline Monohydrate (Doxycycline Monohydrate 100 Mg Capsule) 100 mg PO BID [facility] Last Admin: 03/30/24 08:29 Dose: 100 mg Folic Acid (Folic Acid 1 Mg Tablet) 1 mg PO DAILY [facility] Last Admin: 03/30/24 08:29 Dose: 1 mg Gabapentin (Gabapentin 100 Mg Capsule) 100 mg PO TID [facility] Last Admin: 03/30/24 08:29 Dose: 100 mg Hydroxyzine HCl (Hydroxyzine Hcl 25 Mg Tablet) 25 mg PO Q6H PRN PRN Reason: Anxiety Last Admin: 03/30/24 02:17 Dose: 25 mg Lidocaine (Lidocaine 4 % Patch Adh..Patch) 1 patch TRANSDERMA DAILY PRN; Protocol PRN Reason: lower back pain Last Admin: 03/29/24 17:18 Dose: 1 patch Lorazepam (Lorazepam 0.5 Mg Tablet) 0.5 mg PO QID [facility] Last Admin: 03/30/24 08:29 Dose: 0.5 mg Magnesium Hydroxide (Milk Of Magnesia 30 Ml Oral.Susp) 30 ml PO DAILY PRN PRN Reason: Constipation Methadone HCl (Methadone Hcl 20 Mg/2 Ml Oral.Conc) 60 mg PO DAILY [facility] Last Admin: 03/30/24 08:28 Dose: 60 mg Nicotine (Nicotine 21 Mg Patch.Td24) 21 mg TRANSDERMA DAILY PRN PRN Reason: nicotine cravings Last Admin: 03/28/24 21:21 Dose: 21 mg Nicotine Polacrilex (Nicotine Polacrilex 2 Mg Gum) 4 mg BUCCAL Q2H PRN PRN Reason: Nicotine Cravings Last Admin: 03/30/24 06:11 Dose: 4 mg Oxcarbazepine (Oxcarbazepine 300 Mg Tablet) 300 mg PO BID [facility] Last Admin: 03/30/24 08:29 Dose: 300 mg Quetiapine Fumarate (Quetiapine Fumarate 300 Mg Tablet) 300 mg PO BEDTIME [facility] Last Admin: 03/29/24 20:45 Dose: 300 mg Thiamine HCl (Thiamine Hcl 100 Mg Tablet) 100 mg PO DAILY [facility] Last Admin: 03/30/24 08:29 Dose: 100 mg Allergies Allergies Allergy/AdvReac Type Severity Reaction Status Date / Time trazodone AdvReac Severe RLS Verified 03/23/24 22:25 Assessment & Plan Assessment & Plan (1) MDD (major depressive disorder), recurrent severe, without psychosis: Status: Acute Code(s): F33.2 - Major depressive disorder, recurrent severe without psychotic features (2) PTSD (post-traumatic stress disorder): Status: Acute Code(s): F43.10 - Post-traumatic stress disorder, unspecified (3) Alcohol use disorder: Status: Acute Code(s): F10.90 - Alcohol use, unspecified, uncomplicated (4) Alcohol withdrawal: Status: Acute Code(s): F10.939 - Alcohol use, unspecified with withdrawal, unspecified (5) Cocaine use disorder: Status: Acute Code(s): F14.10 - Cocaine abuse, uncomplicated (6) Opioid use disorder: Status: Acute Code(s): F11.90 - Opioid use, unspecified, uncomplicated (7) Acute UTI: Status: Acute Code(s): N39.0 - Urinary tract infection, site not specified Plan HPI: Patient is a 43-year-old female with history of depression, anxiety, cocaine, opiate, alcohol use disorder/dependence, on methadone, who self presents for worsening depression and SI in the face of homelessness and being off medications. Patient reports that she and her are /; about 4 months ago she moved out, became homeless and stopped taking her medications and became further embroiled in polysubstance abuse. Patient reports that her depression has been mounting over the past months and this past she felt suicidal, though no plan mentioned, and self presented for treatment. Patient is detoxing from alcohol, uncomfortable, tearful and wanting to keep interview short. She says she used to be on Wellbutrin, Seroquel 300 mg q.h.s., clonidine p.r.n. all of which she found helpful would like to get back on it. She also says she used to be on Xanax 2 mg t.i.d. which was what really helped her anxiety. Patient reports both auditory and visual hallucinations, seeing people in the room, hearing birds, hearing people talking which she says knows is not real and says only happens when she is detoxing from alcohol. Patient reports history of hypothyroid though reviewed labs with pt and TSH/free T3 WNL. Formulation/clinical reasoning: -Patient has long history of severe polysubstance abuse and is currently withdrawing from alcohol with symptoms of alcoholic hallucinosis, with both auditory and visual hallucinations which she knows are hallucinations. -Chronic anxiety and depression, off meds for 4 months -Patient is not scoring very high on CIWA but complaining of problematic withdrawal symptoms; patient just restarted on methadone which might be subduing some of her symptoms -Given the longevity and severity of alcohol abuse/dependence, will schedule both gabapentin and Ativan for now and then taper them off; will continue for breakthrough symptoms; -once detox more underway will restart Wellbutrin. Other Then for detox will avoid benzos for treatment Hospital course: 03/25: continue current management and treatment plan. Asked medicine to see for evaluation of possible cellulitis. 03/26: Lower GBP to 200 mg TID. DC Ativan 2 mg. Lower standing Ativan to 0.5 mg TID. Consider further taper of sedating medications. - Hospitalist PA Upon physical examination there is an approximately 3 cm erythematous and warm oval-shape lesion on left upper buttock. Possibly some mild swelling, but no appreciable induration or fluctuance. Currently little concern for abscess. Skin intact with no noticeable abrasions. Will treat with doxycycline 100 mg b.i.d. x5 days. 03/27 pt tearful, depressed, anxious. She agrees that her own anxiety is mixed with w/drawal symptoms; says ptsd is the worst, with frequent intrusive memories. Discussed history: no hx of cuong/manic episodes; hx of AH only in context of intoxication or withdrawal. Patient feels also withdrawing from opiates, ask if methadone can be increased, in past stable on 150 mg med trials include: Prozac: Not very helpful and sexual side effects Zoloft: Not helpful (though not sure if therapeutic dose/duration). Patient has otherwise dependent on benzodiazepines to deal with anxiety. Discussed medication management for depression anxiety including how benzodiazepines are not sustainable approach given her struggles with substance abuse and PTSD. She agrees to try Trileptal after ghost writer reviewed risks/side effects, see if that can help with anxiety. -regarding detox, ghost writer maintains that longevity and severity of alcohol abuse, combined with opiate withdrawal makes detox complicated; although patient does indeed appear sedated, typically goal for detox of alcohol is sleepy but arousable. Will continue with CIWA; Ativan scheduled was lowered to 0.5 t.i.d., but will increase to q.i.d. for now; will leave gabapentin 200 mg t.i.d. for now as well. Over the next several days will detox. Patient very much wants a program to help with getting sober. -She is engaged in treatment. -patient has been on Wellbutrin in the past; will consider restarting this however Lexapro might be beneficial per PTSD 03/28 Patient reports that anxiety is a little better with Trileptal and agrees to increase it further. She says she still struggling with depression and feels ready to restart Wellbutrin. Patient shared that she is getting along well with peers in the milieu and is enjoying interacting with them. Patient was upset that a male staff entered her room for checks because she was changing; patient discussed with nursing and matter considered accidental. Patient reports low back pain and wonders if it is due to induration on buttocks Right Of Way Buyer inspected buttocks with nurse present; erythematous area present but does not appear to be cellulitis. Patient already on antibiotics. Ordered lidocaine patch. -will increase Trileptal and restart Wellbutrin which she is done well on in the past; also will increase methadone at her request for cravings and withdrawal symptoms; will likely be able to DC CIWA soon /3 Anxious and depressed. Not sure that the Wellbutrin has made much difference yet but will continue to take it. Patient remains quite sedated throughout the day, nodding off in the middle of conversation. She does not know why. Patient remains sensitive struggling to not take interactions personally. Complains of lower back pain. With female nurse present, ghost writer examined lower back and patient had tenderness on palpation in the sacral vertebra. Reports history of IV cocaine/heroin use however says it is quite some time, though is vague on the timeline. -patient retracted 3 day notice; very much wants to go to a program to pursue sobriety -will order CBC, CMP, ammonia, ESR, CRP; will also get plain film x-ray on lumbar spine. Low suspicion for osteomyelitis but looking to rule out 03/30 labs reviewed and grossly WNL except for mild increasing ESR Patient complaining of increased lower back pain; discussed with hospitalist PA and lumbar an abdominal CT scan ordered; low suspicion for osteomyelitis given labs and vitals and hospitalist PA felt that CT could be obtained on the following day. LFTs moderately increased with a continued slight increasing; while this could very possibly be methadone, Hep B/C profile obtained given history of IV drug use; HIV lab ordered. Discussed these things with patient agrees with plan. Patient also asked why methadone was not further increased and accepted that current dose seems adequate for now given daytime sedation which she agreed; of note patient is more alert. Plan: CV Q 15 minute checks DC CIWA and continue with Ativan taper Ativan 0,5 mg qid. Will eventually taper off and DC Gabapentin 200 mg t.i.d. will eventually taper off and DC Continue Wellbutrin XL 150 in the morning; patient has been on before and says helpful depression Continue to Trileptal 300mg BID for anxiety Continue methadone to 60 mg in the morning for continued cravings; patient said she is to be on 150 mg Seroquel 300 mg q.h.s.; patient says she used to take this and it helps Clonidine p.r.n. Patient reports history of hypothyroid; reviewed labs and currently TSH/free T3 WNL. Patient educated on: diagnosis, medication risk/benefits, substance abuse and medical condition Informed Consent: understands Reason for continued inpatient stay Substantial Risk for: rapid decompensation Time Spent With Patient Time: Total time managing care of this patient today ____ minutes.
[2024-03-30] MEDS: Ibuprofen 800 MG TABLET PO (12:15)
--- NOTE | 2024-03-30 12:37 | PM.EVENT ---
Event Note Date of Service: 03/30/24 Event Note: Hospitalist consult for patient admitted to [facility] psych unit with increasing lower back pain. Patient previously seen for evaluation of right upper buttock lesion with question of cellulitis. Patient completed 5 day course of doxy, without any change to 3 cm well-demarcated erythematous lesion. Area continues to be tender to palpation, but no induration or fluctuance noted. As pictured below. No further workup or treatment indicated at this time. Patient primarily complaining of worsening lower back pain over the past 2-3 days. Reports pain radiates from central back and wraps around to her abdomen, particularly on the right side. Denies radiation down her legs. No numbness or tingling in lower extremities. Denies changes to bowel or bladder habits. No saddle anesthesia. Upon examination exquisite tenderness to lumbar spinal processes and right-sided paraspinal muscles. Diffuse abdominal tenderness especially in lower right quadrant. Question of mild abdominal distention. Patient received x-rays of lumbar spine yesterday which were unremarkable, including negative for fracture or destructive process. Lab work indicated elevated AST of 71 and ALT of 83, otherwise grossly unremarkable. No leukocytosis. Stable H&H. ESR WNL at 9. CRP mildly elevated at 0.83. Bilirubin 0.2. No concern for osteomyelitis. Will get CT of lumbar spine and abd/pelvis. Of note, review of previous imaging indicates patient received CT of abdomen and pelvis on 11/23/2023 that showed possible pelvic congestion syndrome. Time Spent With Patient Time: Total time managing care of this patient today ____ minutes.
[2024-03-30] MEDS: methADONE HCl 20 MG/2 ML ORAL.CONC 10 MG PO (14:08)
[2024-03-30] MEDS: Fluconazole 150 MG TABLET PO (15:07)
[2024-03-30 15:10] LABS: Alanine Aminotransferase 84 U/L (0-31); Albumin Level 4.1 g/dL (3.5-5.0); Alkaline Phosphatase 79 U/L (39-117); Amylase 32 U/L (28-100); Aspartate Amino Transferase 95 U/L (5-31); Bilirubin Direct 0.1 mg/dL (0.0-0.5); Bilirubin Total 0.3 mg/dL (0.0-1.0); Lipase 10 U/L (8-78); Total Protein 6.6 g/dL (6.5-8.0)
[2024-03-30] MEDS: Sodium Phosphate,Mono-Dibasic 133 ML ENEMA PR (16:57)
[2024-03-30] MEDS: Lidocaine 4 % Patch ADH..PATCH 1 PATCH TRANSDERMA (17:59)
[2024-03-30 20:00] VITALS: BP 116/55; PULSE 78; TEMP 36.4; O2SAT 95
[2024-03-30 21:02] VITALS: BP 116/55
[2024-03-30] MEDS: QUEtiapine Fumarate 300 MG TABLET PO (21:02)
[2024-03-31] VITALS (8 sets, daily range): BP systolic 108–179; BP diastolic 61–89; PULSE 76–84; RESP 12–16; TEMP 36.6; O2SAT 96–99
--- NOTE | 2024-03-31 | ECG_ITS ---
Test Reason : qtc Blood Pressure : / mmHG Vent. Rate : 114 BPM Atrial Rate : 114 BPM P-R Int : 150 ms QRS Dur : 086 ms QT Int : 340 ms P-R-T Axes : 063 057 052 degrees QTc Int : 468 ms Sinus tachycardia Otherwise normal ECG No previous ECGs available Referred By: Christopher Huggins Electronically Signed By:PHILIPPE VELAZCO
[2024-03-31] MEDS: Acetaminophen 325 MG TABLET 650 MG PO ×2 (00:22→08:22)
[2024-03-31] MEDS: cloNIDine HCL 0.1 MG TABLET PO ×3 (00:23→08:29)
[2024-03-31] MEDS: Nicotine Polacrilex 2 MG GUM 4 MG BUCCAL ×2 (01:02→08:27)
[2024-03-31] MEDS: Ibuprofen 800 MG TABLET PO (02:33)
--- NOTE | 2024-03-31 02:48 | PC.NURSE ---
Patient tearful with C/O pain throughout the evening. Prn Hydroxyzine, Clonidine, Tylenol, Ibuprofen and Nicotine gum administered. Patient continues to request other pain meds which are not available. call center operator provider contacted as well as hospitalist. One time order for Ibuprofen given. Patient threatening to call 911 stating she wants to go to the ED and they will come and take her there.
[2024-03-31] MEDS: hydrOXYzine HCL 25 MG TABLET PO ×2 (03:51→08:22)
[2024-03-31 03:53] LABS: HBS Num1 236.94 mIU/mL (0-7.99); HBc Num1 0.13 S/CO (0.00-0.79); HIV AB/AG Nonreactive (Nonreactive); HIV Num 1 0.05 S/CO (0.00-0.99); Hepatitis B Core Antibody Nonreactive (Nonreactive); Hepatitis B Surface Antigen Negative (Negative); ~HepC Num1 0.11 S/CO (0.00-0.79); ~Hepatitis B Surface Antibody REACTIVE (Nonreactive); ~Hepatitis C Antibody Nonreactive (Nonreactive)
[2024-03-31] MEDS: methADONE HCl 20 MG/2 ML ORAL.CONC 70 MG PO (08:18)
[2024-03-31] MEDS: Gabapentin 100 MG CAPSULE PO (08:22)
[2024-03-31] MEDS: OXcarbazepine 300 MG TABLET PO (08:23)
[2024-03-31] MEDS: LORazepam 0.5 MG TABLET PO (08:23)
[2024-03-31] MEDS: buPROPion HCl XL 150 MG TAB.ER.24H PO (08:23)
[2024-03-31] MEDS: Doxycycline Monohydrate 100 MG CAPSULE PO (08:23)
[2024-03-31] MEDS: Docusate Sodium 100 MG CAPSULE PO (08:23)
[2024-03-31] MEDS: Folic Acid 1 MG TABLET PO (08:23)
[2024-03-31] MEDS: Nicotine 21 MG PATCH.TD24 TRANSDERMA (09:23)
[2024-03-31] MEDS: Thiamine HCL 100 MG TABLET PO (09:45)
[2024-03-31 10:45] LABS: Bacterial Vaginosis PCR POSITIVE (Negative); Candida Group PCR NOT DETECTED (Not Detect); Candida glab krusei PCR DETECTED (Not Detect); Trichomonas vaginalis PCR DETECTED (Not Detect)
--- NOTE | 2024-03-31 11:02 | HO.PSYCHPN ---
Subjective Subjective Date of Service: 03/31/24 Reason For Visit: Depression polysubstance use disorder PTSD Interim History: Met with patient; discussed with team This morning, Seasonal Driver informed that patient was accidentally given an extra 60 mg of methadone on top of her scheduled 70 mg. Patient was informed. Seasonal Driver discussed with nursing who reported that patient remained at baseline, sitting in the kitchen eating, vitals WNL including RR which was 16. Seasonal Driver placed patient on immediate one-to-one with specific instructions to alert nursing to any change in status and increased vitals to Q 1 hour; discussed increasing frequency of vitals further however since patient was alert and oriented, at baseline (in kitchen eating) on a one-to-one and since methadone effects peak about 3-4 hours post administration, decided that Q 1 hour was sufficient for time being. Also discontinued other potentially sedating medications including gabapentin and Ativan. Seasonal Driver discussed this with addiction consult Suki Abdi who agreed with this plan. Seasonal Driver and nurse remained in communication and patient's vitals remained stable. EKG ordered. Patient has been nodding on and off throughout her entire admission and could be easily aroused just by saying her name; although this same pattern continued, during moments when she would not off, patient's RR started to decrease and O2 sat dropped and Rapid response called; patient given Narcan x2. She was transferred to the medical floor for monitoring. Mental Status Exam Mental Status Exam Narrative: Pt is alert and oriented; behavior is cooperative, more calm, intermittently tearful; patient is not in distress; casual attire and adequate hygiene; mood is described as depressed and affect congruent, intermittently tearful but less so; eye contact appropriate; Speech is normal rate, volume and prosody and not pressured; no psychomotor agitation/retardation present; thought process is organized and goal directed; Thought content is on dealing with trauma history, detox, tx; otherwise pertinent to relevant topics and without any delusional content, paranoid ideations or grandiosity; no SI; no HI. No AVH. Patients insight and judgment impaired but improving Diagnostics Vital Signs (24Hr): Vital Signs - 24 hr 03/30/24 20:00 03/30/24 21:02 03/31/24 00:23 Temperature 97.6 F Pulse Rate 78 Respiratory Rate Blood Pressure 116/55 L 116/55 L 179/89 H Pulse Oximetry 95 Oxygen Delivery Method Room Air 03/31/24 03:51 03/31/24 08:00 03/31/24 08:29 Temperature 97.9 F Pulse Rate 79 Respiratory Rate 16 Blood Pressure 111/61 127/71 127/71 Pulse Oximetry 99 Oxygen Delivery Method Room Air 03/31/24 09:00 03/31/24 09:50 Temperature Pulse Rate 84 80 Respiratory Rate 16 16 Blood Pressure 133/79 132/74 Pulse Oximetry 97 98 Oxygen Delivery Method Room Air Room Air BMI result Body Mass Index 23.4 Labs 03/29/24 12:25 03/29/24 12:25 Labs: Laboratory Results - last 48 hr 03/29/24 03/29/24 03/30/24 12:25 20:00 14:34 WBC 6.9 RBC 4.42 Hgb 13.1 Hct 38.7 MCV 87.6 MCH 29.6 MCHC 33.9 RDW 13.1 Plt Count 176 D MPV 11.8 Immature Gran % (Auto) 0.3 Neut % (Auto) 57.9 Lymph % (Auto) 28.0 [place] % (Auto) 9.9 Eos % (Auto) 3.5 Baso % (Auto) 0.4 Lymph # (Auto) 1.9 [place] # (Auto) 0.7 Eos # (Auto) 0.2 Baso # (Auto) 0.0 Abs Immat Gran (auto) 0.02 Absolute Neuts (auto) 4.0 Absolute Nucleated RBC 0.000 Nucleated RBC % (auto) 0.0 ESR 9 Sodium 139 Potassium 4.4 Chloride 100 Carbon Dioxide 33 H Anion Gap 10 L BUN 14 Creatinine 0.72 Estim Creat Clear Calc 76.8 Estimated GFR > 60 Random Glucose 97 Calcium 9.6 Magnesium 1.7 Total Bilirubin 0.2 0.3 Direct Bilirubin 0.1 AST 71 H 95 H ALT 83 H 84 H Alkaline Phosphatase 71 79 Ammonia 32 C-Reactive Protein 0.83 H Total Protein 6.4 L 6.6 Albumin 4.1 4.1 Amylase 32 Lipase 10 Urine Opiates Screen Not Detected Ur Buprenorphine Scrn Not Detected Ur Oxycodone Screen Not Detected Urine Methadone Screen Positive H Urine Fentanyl Screen Not Detected Ur Barbiturates Screen Not Detected Ur Phencyclidine Scrn Not Detected Ur Amphetamines Screen Not Detected U Benzodiazepines Scrn Not Detected Urine Cocaine Screen Not Detected U Marijuana (THC) Screen POSITIVE H Hep Bs Antigen Negative Hep Bs Antibody REACTIVE Hep B Core Total Ab Nonreactive Hepatitis C Ab (EIA) Nonreactive HIV 1&2 Ab/P24 Ag 4thGn Nonreactive T. vaginalis (PCR) Bact Vaginosis (PCR) C. krusei/glabrata (PCR) Fouzia group (PCR) 03/30/24 16:15 WBC RBC Hgb Hct MCV MCH MCHC RDW Plt Count MPV Immature Gran % (Auto) Neut % (Auto) Lymph % (Auto) [place] % (Auto) Eos % (Auto) Baso % (Auto) Lymph # (Auto) [place] # (Auto) Eos # (Auto) Baso # (Auto) Abs Immat Gran (auto) Absolute Neuts (auto) Absolute Nucleated RBC Nucleated RBC % (auto) ESR Sodium Potassium Chloride Carbon Dioxide Anion Gap BUN Creatinine Estim Creat Clear Calc Estimated GFR Random Glucose Calcium Magnesium Total Bilirubin Direct Bilirubin AST ALT Alkaline Phosphatase Ammonia C-Reactive Protein Total Protein Albumin Amylase Lipase Urine Opiates Screen Ur Buprenorphine Scrn Ur Oxycodone Screen Urine Methadone Screen Urine Fentanyl Screen Ur Barbiturates Screen Ur Phencyclidine Scrn Ur Amphetamines Screen U Benzodiazepines Scrn Urine Cocaine Screen U Marijuana (THC) Screen Hep Bs Antigen Hep Bs Antibody Hep B Core Total Ab Hepatitis C Ab (EIA) HIV 1&2 Ab/P24 Ag 4thGn T. vaginalis (PCR) DETECTED A Bact Vaginosis (PCR) POSITIVE A C. krusei/glabrata (PCR) DETECTED A Fouzia group (PCR) NOT DETECTED Imaging Radiology Impressions: ITS Impressions Lumbar Spine X-Ray 03/29/24 14:36 IMPRESSION: Unremarkable examination. Medications Medications Current Medications Acetaminophen (Acetaminophen 325 Mg Tablet) 650 mg PO Q6H PRN PRN Reason: Headache/Pain Mild Scale (1-3) Last Admin: 03/31/24 08:22 Dose: 650 mg Al Hydroxide/Mg Hydroxide (Magnesium Hydrox/Alum Hydrox 30 Ml Oral.Susp) 30 ml PO Q6H PRN PRN Reason: Heartburn/Nausea Bupropion HCl (Bupropion Hcl Xl 150 Mg Tab.Er.24h) 150 mg PO DAILY [facility] Last Admin: 03/31/24 08:23 Dose: 150 mg Clonidine HCl (Clonidine Hcl 0.1 Mg Tablet) 0.1 mg PO BEDTIME [facility]; Protocol Last Admin: 03/30/24 21:02 Dose: 0.1 mg Clonidine HCl (Clonidine Hcl 0.1 Mg Tablet) 0.1 mg PO Q4H PRN; Protocol PRN Reason: mild anxiety Last Admin: 03/31/24 08:29 Dose: 0.1 mg Docusate Sodium (Docusate Sodium 100 Mg Capsule) 100 mg PO BID [facility] Last Admin: 03/31/24 08:23 Dose: 100 mg Doxycycline Monohydrate (Doxycycline Monohydrate 100 Mg Capsule) 100 mg PO BID [facility] Last Admin: 03/31/24 08:23 Dose: 100 mg Folic Acid (Folic Acid 1 Mg Tablet) 1 mg PO DAILY [facility] Last Admin: 03/31/24 08:23 Dose: 1 mg Lidocaine (Lidocaine 4 % Patch Adh..Patch) 1 patch TRANSDERMA DAILY PRN; Protocol PRN Reason: lower back pain Last Admin: 03/30/24 17:59 Dose: 1 patch Lorazepam (Lorazepam 0.5 Mg Tablet) 0.5 mg PO QID [facility] Last Admin: 03/31/24 08:23 Dose: 0.5 mg Magnesium Hydroxide (Milk Of Magnesia 30 Ml Oral.Susp) 30 ml PO DAILY PRN PRN Reason: Constipation Methadone HCl (Methadone Hcl 20 Mg/2 Ml Oral.Conc) 70 mg PO DAILY [facility] Last Admin: 03/31/24 08:18 Dose: 70 mg Naloxone HCl (Naloxone Hcl Nasal 4 Mg [place]) 4 mg NOSTRILALT ONCE PRN PRN Reason: respiratory depression Nicotine (Nicotine 21 Mg Patch.Td24) 21 mg TRANSDERMA DAILY PRN PRN Reason: nicotine cravings Last Admin: 03/31/24 09:23 Dose: 21 mg Nicotine Polacrilex (Nicotine Polacrilex 2 Mg Gum) 4 mg BUCCAL Q2H PRN PRN Reason: Nicotine Cravings Last Admin: 03/31/24 08:27 Dose: 4 mg Oxcarbazepine (Oxcarbazepine 300 Mg Tablet) 300 mg PO BID [facility] Last Admin: 03/31/24 08:23 Dose: 300 mg Quetiapine Fumarate (Quetiapine Fumarate 300 Mg Tablet) 300 mg PO BEDTIME [facility] Last Admin: 03/30/24 21:02 Dose: 300 mg Sodium Biphosphate/Sodium Phosphate (Sodium Phosphate,[place]-Dibasic 133 Ml Enema) 133 ml HI TID PRN PRN Reason: continued constipation Thiamine HCl (Thiamine Hcl 100 Mg Tablet) 100 mg PO DAILY [facility] Last Admin: 03/31/24 09:45 Dose: 100 mg Allergies Allergies Allergy/AdvReac Type Severity Reaction Status Date / Time trazodone AdvReac Severe RLS Verified 03/23/24 22:25 Assessment & Plan Assessment & Plan (1) MDD (major depressive disorder), recurrent severe, without psychosis: Status: Acute Code(s): F33.2 - Major depressive disorder, recurrent severe without psychotic features (2) PTSD (post-traumatic stress disorder): Status: Acute Code(s): F43.10 - Post-traumatic stress disorder, unspecified (3) Alcohol use disorder: Status: Acute Code(s): F10.90 - Alcohol use, unspecified, uncomplicated (4) Alcohol withdrawal: Status: Acute Code(s): F10.939 - Alcohol use, unspecified with withdrawal, unspecified (5) Cocaine use disorder: Status: Acute Code(s): F14.10 - Cocaine abuse, uncomplicated (6) Opioid use disorder: Status: Acute Code(s): F11.90 - Opioid use, unspecified, uncomplicated (7) Acute UTI: Status: Acute Code(s): N39.0 - Urinary tract infection, site not specified Plan HPI: Patient is a 43-year-old female with history of depression, anxiety, cocaine, opiate, alcohol use disorder/dependence, on methadone, who self presents for worsening depression and SI in the face of homelessness and being off medications. Patient reports that she and her are /; about 4 months ago she moved out, became homeless and stopped taking her medications and became further embroiled in polysubstance abuse. Patient reports that her depression has been mounting over the past months and this past she felt suicidal, though no plan mentioned, and self presented for treatment. Patient is detoxing from alcohol, uncomfortable, tearful and wanting to keep interview short. She says she used to be on Wellbutrin, Seroquel 300 mg q.h.s., clonidine p.r.n. all of which she found helpful would like to get back on it. She also says she used to be on Xanax 2 mg t.i.d. which was what really helped her anxiety. Patient reports both auditory and visual hallucinations, seeing people in the room, hearing birds, hearing people talking which she says knows is not real and says only happens when she is detoxing from alcohol. Patient reports history of hypothyroid though reviewed labs with pt and TSH/free T3 WNL. Formulation/clinical reasoning: -Patient has long history of severe polysubstance abuse and is currently withdrawing from alcohol with symptoms of alcoholic hallucinosis, with both auditory and visual hallucinations which she knows are hallucinations. -Chronic anxiety and depression, off meds for 4 months -Patient is not scoring very high on CIWA but complaining of problematic withdrawal symptoms; patient just restarted on methadone which might be subduing some of her symptoms -Given the longevity and severity of alcohol abuse/dependence, will schedule both gabapentin and Ativan for now and then taper them off; will continue for breakthrough symptoms; -once detox more underway will restart Wellbutrin. Other Then for detox will avoid benzos for treatment Hospital course: 03/25: continue current management and treatment plan. Asked medicine to see for evaluation of possible cellulitis. 03/26: Lower GBP to 200 mg TID. DC Ativan 2 mg. Lower standing Ativan to 0.5 mg TID. Consider further taper of sedating medications. - Hospitalist PA Upon physical examination there is an approximately 3 cm erythematous and warm oval-shape lesion on left upper buttock. Possibly some mild swelling, but no appreciable induration or fluctuance. Currently little concern for abscess. Skin intact with no noticeable abrasions. Will treat with doxycycline 100 mg b.i.d. x5 days. 03/27 pt tearful, depressed, anxious. She agrees that her own anxiety is mixed with w/drawal symptoms; says ptsd is the worst, with frequent intrusive memories. Discussed history: no hx of cuong/manic episodes; hx of AH only in context of intoxication or withdrawal. Patient feels also withdrawing from opiates, ask if methadone can be increased, in past stable on 150 mg med trials include: Prozac: Not very helpful and sexual side effects Zoloft: Not helpful (though not sure if therapeutic dose/duration). Patient has otherwise dependent on benzodiazepines to deal with anxiety. Discussed medication management for depression anxiety including how benzodiazepines are not sustainable approach given her struggles with substance abuse and PTSD. She agrees to try Trileptal after commercial underwriter reviewed risks/side effects, see if that can help with anxiety. -regarding detox, commercial underwriter maintains that longevity and severity of alcohol abuse, combined with opiate withdrawal makes detox complicated; although patient does indeed appear sedated, typically goal for detox of alcohol is sleepy but arousable. Will continue with CIWA; Ativan scheduled was lowered to 0.5 t.i.d., but will increase to q.i.d. for now; will leave gabapentin 200 mg t.i.d. for now as well. Over the next several days will detox. Patient very much wants a program to help with getting sober. -She is engaged in treatment. -patient has been on Wellbutrin in the past; will consider restarting this however Lexapro might be beneficial per PTSD 03/28 Patient reports that anxiety is a little better with Trileptal and agrees to increase it further. She says she still struggling with depression and feels ready to restart Wellbutrin. Patient shared that she is getting along well with peers in the milieu and is enjoying interacting with them. Patient was upset that a male staff entered her room for checks because she was changing; patient discussed with nursing and matter considered accidental. Patient reports low back pain and wonders if it is due to induration on buttocks Seasonal Driver inspected buttocks with nurse present; erythematous area present but does not appear to be cellulitis. Patient already on antibiotics. Ordered lidocaine patch. -will increase Trileptal and restart Wellbutrin which she is done well on in the past; also will increase methadone at her request for cravings and withdrawal symptoms; will likely be able to DC CIWA soon 03/29 Anxious and depressed. Not sure that the Wellbutrin has made much difference yet but will continue to take it. Patient remains quite sedated throughout the day, nodding off in the middle of conversation. She does not know why. Patient remains sensitive struggling to not take interactions personally. Complains of lower back pain. With female nurse present, commercial underwriter examined lower back and patient had tenderness on palpation in the sacral vertebra. Reports history of IV cocaine/heroin use however says it is quite some time, though is vague on the timeline. -patient retracted 3 day notice; very much wants to go to a program to pursue sobriety -will order CBC, CMP, ammonia, ESR, CRP; will also get plain film x-ray on lumbar spine. Low suspicion for osteomyelitis but looking to rule out 03/30 labs reviewed and grossly WNL except for mild increasing ESR Patient complaining of increased lower back pain; discussed with hospitalist CLAYTON and lumbar an abdominal CT scan ordered; low suspicion for osteomyelitis given labs and vitals and hospitalist CLAYTON felt that CT could be obtained on the following day. LFTs moderately increased with a continued slight increasing; while this could very possibly be methadone, Hep B/C profile obtained given history of IV drug use; HIV lab ordered. Discussed these things with patient agrees with plan. Patient also asked why methadone was not further increased and accepted that current dose seems adequate for now given daytime sedation which she agreed; of note patient is more alert. is morning, Seasonal Driver informed that patient was accidentally given an extra 60 mg of methadone on top of her scheduled 70 mg. Patient was informed. Seasonal Driver discussed with nursing who reported that patient remained at baseline, sitting in the kitchen eating, vitals WNL including RR which was 16. Seasonal Driver placed patient on immediate one-to-one with specific instructions to alert nursing to any change in status and increased vitals to Q 1 hour; discussed increasing frequency of vitals further however since patient was alert and oriented, at baseline (in kitchen eating) on a one-to-one and since methadone effects peak about 3-4 hours post administration, decided that Q 1 hour was sufficient for time being. Also discontinued other potentially sedating medications including gabapentin and Ativan. Seasonal Driver discussed this with addiction consult Suki Abdi who agreed with this plan. Seasonal Driver and nurse remained in communication and patient's vitals remained stable. EKG ordered. Patient has been nodding on and off throughout her entire admission and could be easily aroused just by saying her name; although this same pattern continued, during moments when she would not off, patient's RR started to decrease and O2 sat dropped and Rapid response called; patient given Narcan x2. She was transferred to the medical floor for monitoring. Plan: CV Q 15 minute checks DC CIWA and continue with Ativan taper Ativan 0,5 mg qid. Will eventually taper off and DC Gabapentin 200 mg t.i.d. will eventually taper off and DC Continue Wellbutrin XL 150 in the morning; patient has been on before and says helpful depression Continue to Trileptal 300mg BID for anxiety Continue methadone to 60 mg in the morning for continued cravings; patient said she is to be on 150 mg Seroquel 300 mg q.h.s.; patient says she used to take this and it helps Clonidine p.r.n. Patient reports history of hypothyroid; reviewed labs and currently TSH/free T3 WNL. Patient educated on: diagnosis, medication risk/benefits and medical condition Informed Consent: understands Reason for continued inpatient stay Substantial Risk for: inability to function Time Spent With Patient Time: Total time managing care of this patient today ____ minutes.
--- NOTE | 2024-03-31 11:11 | P.DS_ITS ---
DS: Providers Provider Date of Service: 03/31/24 Date of admission: 03/23/24 14:25 Date of discharge: 03/31/24 Primary care physician: Unknown Physician Attending physician on admission: Christopher Huggins Consults: 03/25/24 09:38 Consult to Hospitalist Routine Comment: Consulting Provider: Hospitalist Reason For Exam: Right buttock redness/swelling/pain ?cellulitis 03/30/24 10:27 Consult to Hospitalist Routine Comment: Consulting Provider: Hospitalist Reason For Exam: increasng pain,sacral vertbra IVdrug;poor historia Attending physician on discharge: Christopher Huggins DS: Diagnosis Discharge Diagnosis (1) MDD (major depressive disorder), recurrent severe, without psychosis: Status: Acute (2) PTSD (post-traumatic stress disorder): Status: Acute (3) Alcohol use disorder: Status: Acute (4) Alcohol withdrawal: Status: Resolved (5) Cocaine use disorder: Status: Acute (6) Opioid use disorder: Status: Acute (7) Acute UTI: Status: Acute DS: Medications Discharge Medications Home Medications: Home Medications ?Medication ?Instructions ?Recorded ?Confirmed No Known Home Meds 03/20/24 03/23/24 Mental Status Exam Mental Status Exam Narrative: Pt is alert and oriented; behavior is intermittently sedated; casual attire and adequate hygiene; mood is described as depressed and affect congruent, inte rmittently tearful but less so; eye contact appropriate; Speech is normal rate, volume and prosody and not pressured; no psychomotor agitation/retardation present; thought process is organized and goal directed; Thought content is on dealing with trauma history, detox, tx; otherwise pertinent to relevant topics and without any delusional content, paranoid ideations or grandiosity; no SI; no HI. No AVH. Patients insight and judgment impaired but improving Data Data Completed and Pending Completed studies during hospitalization [Text1]: 03/24/24 03/29/24 03/29/24 09:35 03:00 09:07 WBC RBC Hgb Hct MCV MCH MCHC RDW Plt Count MPV Immature Gran % (Auto) Neut % (Auto) Lymph % (Auto) [place] % (Auto) Eos % (Auto) Baso % (Auto) Lymph # (Auto) [place] # (Auto) Eos # (Auto) Baso # (Auto) Abs Immat Gran (auto) Absolute Neuts (auto) Absolute Nucleated RBC Nucleated RBC % (auto) ESR Sodium Potassium Chloride Carbon Dioxide Anion Gap BUN Creatinine Estim Creat Clear Calc Estimated GFR Random Glucose Calcium Magnesium Total Bilirubin Direct Bilirubin AST ALT Alkaline Phosphatase Ammonia C-Reactive Protein Total Protein Albumin Amylase Lipase Vitamin B12 498 Folate 7.0 Urine Opiates Screen Ur Buprenorphine Scrn Ur Oxycodone Screen Urine Methadone Screen Urine Fentanyl Screen Ur Barbiturates Screen Ur Phencyclidine Scrn Ur Amphetamines Screen U Benzodiazepines Scrn Urine Cocaine Screen U Marijuana (THC) Screen T.pallidum Ab (EIA) Nonreactive Chlam trachomat DNA PCR NOT DETECTED Hep Bs Antigen Hep Bs Antibody Hep B Core Total Ab Hepatitis C Ab (EIA) HIV 1&2 Ab/P24 Ag 4thGn N.gonorrhoeae DNA (PCR) NOT DETECTED T. vaginalis (PCR) Bact Vaginosis (PCR) C. krusei/glabrata (PCR) Fouzia group (PCR) 03/29/24 03/29/24 03/30/24 12:25 20:00 14:34 WBC 6.9 RBC 4.42 Hgb 13.1 Hct 38.7 MCV 87.6 MCH 29.6 MCHC 33.9 RDW 13.1 Plt Count 176 D MPV 11.8 Immature Gran % (Auto) 0.3 Neut % (Auto) 57.9 Lymph % (Auto) 28.0 [place] % (Auto) 9.9 Eos % (Auto) 3.5 Baso % (Auto) 0.4 Lymph # (Auto) 1.9 [place] # (Auto) 0.7 Eos # (Auto) 0.2 Baso # (Auto) 0.0 Abs Immat Gran (auto) 0.02 Absolute Neuts (auto) 4.0 Absolute Nucleated RBC 0.000 Nucleated RBC % (auto) 0.0 ESR 9 Sodium 139 Potassium 4.4 Chloride 100 Carbon Dioxide 33 H Anion Gap 10 L BUN 14 Creatinine 0.72 Estim Creat Clear Calc 76.8 Estimated GFR > 60 Random Glucose 97 Calcium 9.6 Magnesium 1.7 Total Bilirubin 0.2 0.3 Direct Bilirubin 0.1 AST 71 H 95 H ALT 83 H 84 H Alkaline Phosphatase 71 79 Ammonia 32 C-Reactive Protein 0.83 H Total Protein 6.4 L 6.6 Albumin 4.1 4.1 Amylase 32 Lipase 10 Vitamin B12 Folate Urine Opiates Screen Not Detected Ur Buprenorphine Scrn Not Detected Ur Oxycodone Screen Not Detected Urine Methadone Screen Positive H Urine Fentanyl Screen Not Detected Ur Barbiturates Screen Not Detected Ur Phencyclidine Scrn Not Detected Ur Amphetamines Screen Not Detected U Benzodiazepines Scrn Not Detected Urine Cocaine Screen Not Detected U Marijuana (THC) Screen POSITIVE H T.pallidum Ab (EIA) Chlam trachomat DNA PCR Hep Bs Antigen Negative Hep Bs Antibody REACTIVE Hep B Core Total Ab Nonreactive Hepatitis C Ab (EIA) Nonreactive HIV 1&2 Ab/P24 Ag 4thGn Nonreactive N.gonorrhoeae DNA (PCR) T. vaginalis (PCR) Bact Vaginosis (PCR) C. krusei/glabrata (PCR) Fouzia group (PCR) 03/30/24 16:15 WBC RBC Hgb Hct MCV MCH MCHC RDW Plt Count MPV Immature Gran % (Auto) Neut % (Auto) Lymph % (Auto) [place] % (Auto) Eos % (Auto) Baso % (Auto) Lymph # (Auto) [place] # (Auto) Eos # (Auto) Baso # (Auto) Abs Immat Gran (auto) Absolute Neuts (auto) Absolute Nucleated RBC Nucleated RBC % (auto) ESR Sodium Potassium Chloride Carbon Dioxide Anion Gap BUN Creatinine Estim Creat Clear Calc Estimated GFR Random Glucose Calcium Magnesium Total Bilirubin Direct Bilirubin AST ALT Alkaline Phosphatase Ammonia C-Reactive Protein Total Protein Albumin Amylase Lipase Vitamin B12 Folate Urine Opiates Screen Ur Buprenorphine Scrn Ur Oxycodone Screen Urine Methadone Screen Urine Fentanyl Screen Ur Barbiturates Screen Ur Phencyclidine Scrn Ur Amphetamines Screen U Benzodiazepines Scrn Urine Cocaine Screen U Marijuana (THC) Screen T.pallidum Ab (EIA) Chlam trachomat DNA PCR Hep Bs Antigen Hep Bs Antibody Hep B Core Total Ab Hepatitis C Ab (EIA) HIV 1&2 Ab/P24 Ag 4thGn N.gonorrhoeae DNA (PCR) T. vaginalis (PCR) DETECTED A Bact Vaginosis (PCR) POSITIVE A C. krusei/glabrata (PCR) DETECTED A Fouzia group (PCR) NOT DETECTED 03/23/24 Unknown Urine clean catch - Urine fitzpatrick top Urine Culture - Final No growth. Imaging Diagnostic Imaging Impressions Lumbar Spine X-Ray 03/29/24 14:36 IMPRESSION: Unremarkable examination. DS: Summary Hospital Course Hospital Course: HPI: Patient is a 43-year-old female with history of depression, anxiety, cocaine, opiate, alcohol use disorder/dependence, on methadone, who self presents for worsening depression and SI in the face of homelessness and being off medica tions. Patient reports that she and her are /; about 4 months ago she moved out, became homeless and stopped taking her medications and became further embroiled in polysubstance abuse. Patient reports that her depression has been mounting over the past months and this past she felt suicidal, though no plan mentioned, and self presented for treatment. Patient is detoxing from alcohol, uncomfortable, tearful and wanting to keep interview short. She says she used to be on Wellbutrin, Seroquel 300 mg q.h.s., clonidine p.r.n. all of which she found helpful would like to get back on it. She also says she used to be on Xanax 2 mg t.i.d. which was what really helped her anxiety. Patient reports both auditory and visual hallucinations, seeing people in the room, hearing birds, hearing people talking which she says knows is not real and says only happens when she is detoxing from alcohol. Patient reports history of hypothyroid though reviewed labs with pt and TSH/free T3 WNL. On 03/31, patient accidentally given additional dose of methadone and was briefly transferred to medical floor for monitoring and additional administrations of Narcan. She was soon medically cleared and returned to the unit. Below is the hospital course leading up to this transfer to the medical floor. Hospital course: -Patient has long history of severe polysubstance abuse and is currently withdrawing from alcohol with symptoms of alcoholic hallucinosis, with both auditory and visual hallucinations which she knows are hallucinations. -Chronic anxiety and depression, off meds for 4 months -Patient is not scoring very high on CIWA but complaining of problematic withdrawal symptoms; patient just restarted on methadone which might be subduing some of her symptoms -Given the longevity and severity of alcohol abuse/dependence, will schedule both gabapentin and Ativan for now and then taper them off; will continue for breakthrough symptoms; -once detox more underway will restart Wellbutrin. Other Then for detox will avoid benzos for treatment On CIWA with p.r.n. Ativan; eventually switch to scheduled Ativan with taper. Patient very sleepy during the day, falling asleep during conversations. However this is part of the treatment for alcohol withdrawal; also patient was recently restarted on methadone which is very likely contributing to sedation. She remain easily aroused. -hospitalist saw patient to rule out cellulitis left upper buttock and started patient on Will treat with doxycycline 100 mg b.i.d. x5 days. Patient remained quite anxious, tearful, depressed with frequent flashbacks from history of trauma; agrees that much of anxiety is due to withdrawal symptoms as well.s. Discussed history: no hx of cuong/manic episodes; hx of AH only in context of intoxication or withdrawal. Patient feels also withdrawing from opiates, ask if methadone can be increased, in past stable on 150 mg Discussed medication management for depression anxiety including how benzodiazepines are not sustainable approach given her struggles with substance abuse and PTSD. She agrees to try Trileptal after quality analyst/technical writer reviewed risks/side effects, see if that can help with anxiety. Discussed med trials which include: Prozac: Not very helpful and sexual side effects Zoloft: Not helpful (though not sure if therapeutic dose/duration) Patient has otherwise dependent on benzodiazepines to deal with anxiety. 03/28 Patient reports that anxiety is a little better with Trileptal and agrees to increase it further. She says she still struggling with depression and feels ready to restart Wellbutrin. -will increase Trileptal and restart Wellbutrin which she is done well on in the past; also will increase methadone at her request for cravings and withdrawal symptoms; will likely be able to DC CIWA soon Intermittent interpersonal struggles on the unit; remains sensitive to comments by peers or staff. Continues to Complains of lower back pain. \ Reports history of IV cocaine/heroin use however says it is quite some time, though is vague on the timeline. Ordered CBC, CMP, ammonia, ESR, CRP; will also get plain film x-ray on lumbar spine. Low suspicion for osteomyelitis but looking to rule out -labs reviewed and grossly WNL except for mild increasing ESR Patient complaining of increased lower back pain; discussed with hospitalist CLAYTON and lumbar an abdominal CT scan ordered; low suspicion for osteomyelitis given labs and vitals and hospitalist CLAYTON felt that CT could be obtained on the following day. LFTs moderately increased with a continued slight increasing; while this could very possibly be methadone, Hep B/C profile obtained given history of IV drug use; HIV lab ordered. Discussed these things with patient agrees with plan. Patient also asked why methadone was not further increased and accepted that current dose seems adequate for now given daytime sedation which she agreed; of note patient is more alert. 03/31 This morning, Electrical Logger informed that patient was accidentally given an extra 60 mg of methadone on top of her scheduled 70 mg. Patient was informed. Electrical Logger discussed with nursing who reported that patient remained at baseline, sitting in the kitchen eating, vitals WNL including RR which was 16. Electrical Logger placed patient on immediate one-to-one with specific instructions to alert nursing to any change in status and increased vitals to Q 1 hour; discussed increasing frequency of vitals further however since patient was alert and oriented, at baseline (in kitchen eating) on a one-to-one and since methadone effects peak about 3-4 hours post administration, decided that Q 1 hour was sufficient for time being. Also discontinued other potentially sedating medications including gabapentin and Ativan. Electrical Logger discussed this with addiction consult Suki Abdi who agreed with this plan. Electrical Logger and nurse remained in communication and patient's vitals remained stable. EKG ordered. Patient has been nodding on and off throughout her entire admission and could be easily aroused just by saying her name; although this same pattern continued, during moments when she would no t off, patient's RR started to decrease and O2 sat dropped and Rapid response called; patient given Narcan x2. She was transferred to the medical floor for monitoring. Time spent discussing smoking cessation with patient: 3 to 10 minutes Status at Discharge Functional status at discharge: wheelchair bound Overall status at discharge: patient is not back to baseline Time Spent with Patient Time attestation: Total time managing care of this patient today ____ minutes. Time spent: Greater than 30 minutes Discharge Plan Discharge Anticipated Discharge Date/Time: 03/31/24 11:07 Patient Disposition: Xfer Other Discharge Diagnosis: MDD, recurrent, severe in partial remission; accidental opioid overdose Referrals: Physician,Unknown J [Primary Care Provider] - 1 Week Discharge Medications: No Action acetaminophen 325 mg tablet 650 mg PO Q6H PRN (Reason: Fever Or Pain) magnesium hydroxide [Milk of Magnesia] 400 mg/5 mL Suspension 30 ml PO DAILY PRN (Reason: Constipation) methadone 10 mg/mL Concentrate 70 mg PO DAILY naloxone [Narcan] 4 mg/actuation [place],Non-Aerosol 4 mg INTRANASAL Q2M PRN (Reason: Opiate Reversal) Rx Instructions: spray 1 dose into ONE nostril; alternate nostrils w each dose until help arrives cyclobenzaprine 10 mg Tablet 10 mg PO TID PRN (Reason: muscle spams) 30 Days Qty: 90 0RF duloxetine 20 mg Capsule,Delayed Release(Dr/Ec) 20 mg PO DAILY 30 Days Qty: 30 1RF gabapentin 400 mg Capsule 400 mg PO TID 30 Days Qty: 90 0RF hydroxyzine HCl 50 mg Tablet 50 mg PO Q6H PRN (Reason: Anxiety, insomnia) 30 Days Qty: 60 1RF docusate sodium 100 mg Capsule 100 mg PO TID 30 Days Qty: 90 1RF polyethylene glycol 3350 17 gram Powder In Packet 17 g PO BID 30 Days Qty: 100 1RF omeprazole 40 mg Capsule,Delayed Release(Dr/Ec) 40 mg PO DAILY@0630 30 Days Qty: 30 0RF senna leaf extract [senna] 176 mg/5 mL Syrup 15 ml PO BEDTIME 30 Days Qty: 450 1RF prednisone 20 mg Tablet 20 mg PO DAILY 1 Days Qty: 1 0RF clonidine HCl 0.1 mg Tablet 0.1 mg PO QID 30 Days Qty: 120 0RF quetiapine 300 mg Tablet 300 mg PO BEDTIME 30 Days Qty: 30 1RF lidocaine 4 % Adhesive Patch,Medicated 1 patch TOPICAL DAILY PRN (Reason: lower back pain) 30 Days Qty: 30 0RF Rx Instructions: apply to lower back/buttocks metronidazole 500 mg Tablet 500 mg PO BID 3 Days Qty: 6 0RF oxcarbazepine 300 mg Tablet 300 mg PO TID 30 Days Qty: 90 1RF nicotine (polacrilex) [Nicorette] 4 mg Gum 4 mg BUCCAL Q2H PRN (Reason: Nicotine Cravings) 30 Days Qty: 100 0RF nicotine 21 mg/24 hr Patch 24 Hour 1 patch TRANSDERMAL DAILY PRN (Reason: nicotine cravings) 28 Days Qty: 28 0RF bupropion HCl 150 mg Tablet Extended Release 24 Hr 150 mg PO DAILY 30 Days Qty: 30 1RF gabapentin 300 mg Capsule 300 mg PO DAILY PRN (Reason: breakthrough lower back pain) 30 Days Qty: 30 0RF buprenorphine-naloxone [Suboxone] 8-2 mg film 1 film sublingual TID Qty: 90 0RF Discharge Orders: Discharge Order (Routine); Ordered 03/31/24 Ordered By: Christopher Huggins Diet: Regular diet Activity on Discharge: As tolerated Stand Alone Forms: Patient Portal Discharge page Print Language: Faroese Care Plan Goals: dc to medical floor Health Concerns: dc to medical floor Plan of Treatment: dc to medical floor Assessment: dc to medical floor Discharge Date/Time: 03/31/24 11:08
--- NOTE | 2024-03-31 11:24 | PC.NURSE ---
Consuelo was being observed as she was sedated after her medications. Please see [facility] for details of vitals taken. She was eating breakfast and was taken to radiology for ordered CT scan. This was done without incident and she returned to the floor. She was moved to her room as she was falling asleep in the kitchen. She had constant observation. Dr Huggins approached to speak with her, she was noted to have decreased respirations 6-8. Nursing leadership was present also. An CLOTH COVERER was called at 1056, they arrived on unit and narcan intranasally was given at 1059, a second dose of intranasal narcan was given at 1102 with desired affect. Consuelo was awake and respiratory rate normalized to 12. Vitals at 1103 were 112/76, HR 76, O2 sat 96%. She remained alert and was discharged to the medical floor at 1108.
== END 2024-03-31 11:08 | disposition other institution (70) | DRG 751 ==
LOC: HO.ED 12:06 → HO.PM5 14:29
PROVIDERS: Registered Nurse; Admitting Provider Clinical Nurse Specialist Psychiatric/Mental Health, Adult; Emergency Provider Emergency Medicine; Visit Provider Psychiatry & Neurology Psychiatry
DX: F33.2 Major depressive disorder, recurrent severe without psychotic features (principal); R45.851 Suicidal ideations; Z91.148 Patient's other noncompliance with medication regimen for other reason; F10.239 Alcohol dependence with withdrawal, unspecified; E03.9 Hypothyroidism, unspecified; Z59.02 Unsheltered homelessness; T40.3X1A Poisoning by methadone, accidental (unintentional), initial encounter; F43.10 Post-traumatic stress disorder, unspecified; N94.89 Other specified conditions associated with female genital organs and menstrual cycle; F14.20 Cocaine dependence, uncomplicated; Y63 Failure in dosage during surgical and medical care; N39.0 Urinary tract infection, site not specified; F17.210 Nicotine dependence, cigarettes, uncomplicated; Z71.6 Tobacco abuse counseling; F11.20 Opioid dependence, uncomplicated; Z79.52 Long term (current) use of systemic steroids; Z79.899 Other long term (current) drug therapy
CPT/HCPCS: 0352U; 36415; 72100; 72131; 74176; 80048; 80053; 80061; 80076; 80307; 81001; 81025; 82140; 82150; 82607; 82746; 83036; 83690; 83735; 84439; 85025; 85652; 86140; 86704; 86706; 86780; 86803; 87086; 87340; 87389; 87491; 87591; 92950; 93005; 99285; S9485

== ENCOUNTER → 2024-03-23 12:57 | Outpatient (BNV) | payer OTHER, SELFPAY | PROVIDERS: Admitting Provider Clinical Nurse Specialist Psychiatric/Mental Health, Adult; Emergency Provider Emergency Medicine; Visit Provider Internal Medicine Cardiovascular Disease | DX: F33.2 Major depressive disorder, recurrent severe without psychotic features (principal) | CPT/HCPCS: 93010 ==

== ENCOUNTER 2024-03-23 14:25 | Outpatient (BNV) | payer MEDICAID, SELFPAY | END 2024-03-31 11:44 | PROVIDERS: Admitting Provider Clinical Nurse Specialist Psychiatric/Mental Health, Adult; Emergency Provider Emergency Medicine; Visit Provider Internal Medicine | DX: R00.0 Tachycardia, unspecified (principal) | CPT/HCPCS: 93010 ==

== ENCOUNTER → 2024-03-23 14:25 | Outpatient (BNV) | payer OTHER, SELFPAY | PROVIDERS: Admitting Provider Clinical Nurse Specialist Psychiatric/Mental Health, Adult; Emergency Provider Emergency Medicine; Visit Provider Psychiatry & Neurology Psychiatry | DX: F33.2 Major depressive disorder, recurrent severe without psychotic features (principal); F10.939 Alcohol use, unspecified with withdrawal, unspecified; F14.10 Cocaine abuse, uncomplicated; F43.11 Post-traumatic stress disorder, acute; F10.90 Alcohol use, unspecified, uncomplicated; F11.90 Opioid use, unspecified, uncomplicated; N39.0 Urinary tract infection, site not specified | CPT/HCPCS: 99232; 99233 ==

== ENCOUNTER 2024-03-31 11:08 | Observation (INO) | payer OTHER, SELFPAY ==
--- NOTE | 2024-03-31 11:41 | PM.IMHP ---
History of Present Illness Date of Service: 03/31/24 Attending physician on admission: Micah Hughes Chief Complaint: Lethargy Pt is a 43-year-old female with a PMH significant for?polysubstance use disorder, anxiety, and depression who who initially presented to the ED on 03/23/2024 with increasing depression and SI. Patient was admitted to [facility] psychiatric unit on 03/24/2024 and has been seen by hospitalist services multiple times for upper right buttock rash and lower back and abdominal pain. Patient has been lethargic and not falling asleep throughout admission, and there has been some speculation she has been using contraband, though nothing has been observed. Room and skin check were negative. Patient's methadone was increased from 60 mg yesterday to 70 mg today. 60mg order was discontinued, but it looks like today patient received both a 60 mg and 70 mg dose of methadone. Patient's soon became somnolent and altered, and was administered 4 mg Narcan intranasally x2 doses with good effect. Patient was then transferred to hospital floor on telemetry for observation for likely methadone overdose. Patient currently complaining of nausea, vomiting, abdominal pain, and lower leg pain. Review of Systems Review of Systems: Nausea, vomiting Abdominal pain Lower leg pain PMFSH Medical History Hypothyroid Opioid use disorder Cocaine use disorder Alcohol withdrawal Alcohol use disorder PTSD (post-traumatic stress disorder) MDD (major depressive disorder), recurrent severe, without psychosis Active substance abuse Acute anxiety Depression Social History Household Members: None Household Members Other:: homeless Housing: Apartment Alcohol intake: current Alcohol intake frequency: 3 or more drinks per day Alcohol type: hard liquor Comment: siiter Patient Tobacco Use Status: Tobacco use Unknown Cigarette Packs Per Day: 1 Cigarettes Per Day: 20.0 Use of substances other than those prescribed or required for medical reasons: Unable to respond Substance Use Type: Crack/Cocaine, Heroin and Marijuana Spiritual Healthcare Practices: unable to assess Buddhism Healthcare Practices: unable to assess Cultural Healthcare Practices: unable to assess Advance Directives: No Do you have a plan to hurt others: No Plan Recently lost weight without trying: Unsure How much weight loss: Unsure Patient : No : No service: No Sexual orientation: Straight/Heterosexual Meds Allergies Allergy/AdvReac Type Severity Reaction Status Date / Time trazodone AdvReac Severe RLS Verified 03/23/24 22:25 Active Medications: Current Medications Acetaminophen (Acetaminophen 325 Mg Tablet) 650 mg PO Q6H PRN PRN Reason: Pain, Mild (Pain Scale 1-3), fever or headache Benzonatate (Benzonatate 100 Mg Capsule) 100 mg PO TID PRN PRN Reason: Cough Calcium Carbonate (Calcium Carbonate 750 Mg Tab.Chew) 750 mg PO Q4H PRN PRN Reason: Heartburn Enoxaparin Sodium (Enoxaparin Sodium 40 Mg/0.4 Ml Syringe) 40 mg SUBCUT Q24H [facility] Sodium Chloride (Ns) 1,000 mls @ 999 mls/hr IV .Q1H1M [facility] Stop: 03/31/24 12:45 Melatonin (Melatonin 3 Mg Tablet) 6 mg PO BEDTIME PRN PRN Reason: Insomnia Ondansetron HCl (Ondansetron Hcl 4 Mg/2 Ml Vial) 4 mg IVPUSH Q8H PRN PRN Reason: Nausea and Vomiting Polyethylene Glycol (Polyethylene Glycol 3350 17 Gm Powd.Pack) 17 gm PO DAILY PRN PRN Reason: Constipation Sodium Chloride (0.9 % Sodium Chloride Flush 3 Ml Syringe) 3 [facility] Home Medications ?Medication ?Instructions ?Recorded ?Confirmed ?Last Taken ?Type acetaminophen 325 mg tablet 650 mg PO Q6H PRN Fever Or Pain 03/31/24 03/31/24 03/31/24 History bupropion HCl 150 mg 24 hr tablet, 150 mg PO DAILY 03/31/24 03/31/24 03/31/24 History extended release clonidine HCl 0.1 mg tablet 0.1 mg PO BEDTIME 03/31/24 03/31/24 03/30/24 History clonidine HCl 0.1 mg tablet 0.1 mg PO Q4H PRN mild anxiety 03/31/24 03/31/24 03/31/24 History docusate sodium 100 mg capsule 100 mg PO BID 03/31/24 03/31/24 03/31/24 History doxycycline monohydrate 100 mg 100 mg PO BID 03/31/24 03/31/24 03/31/24 History capsule folic acid 1 mg tablet 1 mg PO DAILY 0703/31/24 03/31/24 History lidocaine 4 % topical patch 1 patch topical DAILY 03/31/24 03/31/24 03/30/24 History magnesium hydroxide 400 mg/5 mL 30 ml PO DAILY PRN Constipation 03/31/24 03/31/24 Unknown History oral suspension (Milk of Magnesia) methadone 10 mg/mL oral concentrate 70 mg PO DAILY 03/31/24 03/31/24 03/31/24 History naloxone 4 mg/actuation nasal 4 mg intranasal Q2M PRN Opiate 03/31/24 03/31/24 Unknown History spray (Narcan) Reversal nicotine (polacrilex) 4 mg gum 4 mg buccal Q2H PRN Nicotine 03/31/24 03/31/24 Unknown History (Nicorette) Cravings nicotine 21 mg/24 hr daily 1 patch transdermal DAILY 03/31/24 03/31/24 03/31/24 History transdermal patch oxcarbazepine 300 mg tablet 300 mg PO BID 03/31/24 03/31/24 03/31/24 History quetiapine 300 mg tablet 300 mg PO BEDTIME 03/31/24 03/31/24 03/30/24 History thiamine HCl (vitamin B1) 100 mg 100 mg PO DAILY 03/31/24 03/31/24 03/31/24 History tablet Physical Exam Vital Signs and Narrative: General: AOx3, no acute distress Resp: CTA bilaterally CVS: S1, S2, regular rate, tachycardic GI: +BS, mild distention, right-sided tenderness Skin: Warm, dry Neuro: Cranial nerves II-XII grossly intact bilaterally. Motor grossly intact bilaterally Extremities: No edema Psych: Agitated, anxious Results Labs 03/31/24 12:08 Assessment and Plan (1) Opiate overdose: Status: Acute Plan Pt is a 43-year-old female with a PMH significant for?polysubstance use disorder, anxiety, and depression who who initially presented to the ED on 03/23/2024 with increasing depression and SI. While on the psych unit patient was given extra dose of methadone and became lethargic but responded well to intranasal Narcan. Patient was then transferred to hospital floor on telemetry for observation for likely methadone overdose. Methadone overdose Methadone was increased by 10 mg, from 60 mg yesterday to 70 mg today However, patient apparently received both 60mg and 70mg doses this morning Was administered intranasal Narcan 4 mg x 2 doses to good effect Narcan 0.1 mg IV q2m p.r.n. EKG done, QTc 468 Clonidine prn Addiction medicine consult for methadone dosing Monitor on telemetry Lower back pain Reports lower back pain wrapping around to abd on right side, worsening x3-4 days X-ray of lumbar spine on 03/29/2024 unremarkable, negative for acute fracture or destructive process CT of lumbar spine taken today, results pending Conservative analgesics for pain management Abdominal pain Reports lower back pain wrapping around to abd on right side, worsening x3-[address] of abd/pelvis on 11/23/2023 showed possible pelvic congestion syndrome Repeat CT of abd/pelvis taken today, results pending Will start on bowel regimen: Lactulose 30 mg b.i.d. Mood disorder Continue previous meds from psych unit One-to-one sitter Full Code Attending:?Dr. Hughes DVT Prophylaxis: Lovenox Patient will be brought to the medical floor for observation after likely methadone overdose. Patient will require close cardiac monitoring. Quality Stroke Does the patient have a stroke diagnosis?: No VTE Prior VTE?: No VTE Risk Level:: Medical - moderate - high VTE Device Contraindication: Treatment Not Indicated VTE Drug Contraindication: N/A - Med Ordered
--- NOTE | 2024-03-31 12:00 | PHA.MEDREC ---
Pharmacy Consult ? Medication Reconciliation Pharmacy has completed the medication reconciliation. Patient transferred from
[2024-03-31] MEDS: 0.9 % Sodium Chloride 1,000 ML 999 ML IV (12:03)
[2024-03-31 12:06] VITALS: BP 188/102; PULSE 106; RESP 28; TEMP 36.4; O2SAT 98
[2024-03-31 12:26] VITALS: BMI 23.4
[2024-03-31 12:32] LABS: Alanine Aminotransferase 95 U/L (0-31); Albumin Level 3.8 g/dL (3.5-5.0); Alkaline Phosphatase 80 U/L (39-117); Anion Gap 14 (12-20); Aspartate Amino Transferase 119 U/L (5-31); Bilirubin Total 0.2 mg/dL (0.0-1.0); Blood Urea Nitrogen 16 mg/dL (9-16); Calcium 9.3 mg/dL (8.4-10.2); Carbon Dioxide 29 mmol/L (22-29); Chloride 101 mmol/L (96-108); Creatinine Clr Calc Pharmacy 77.9; Estimated Glomerular Filt Rate > 60; Glucose Random 93 mg/dL (60-115); Potassium 3.9 mmol/L (3.3-5.1); Sodium 140 mmol/L (135-145); Total Protein 6.2 g/dL (6.5-8.0)
[2024-03-31] MEDS: Enoxaparin Sodium 40 MG/0.4 ML SYRINGE SUBCUT (12:48)
--- NOTE | 2024-03-31 14:23 | MHC.RECOVRN ---
Mari met with pt in 459 after pt transferred from after possible methadone overdose. Pt had been receiving 60 mg methadone daily in the morning and was scheduled to increase to 70 mg today. However, per RN, pt received both 60 mg and 70 mg doses this morning. Was administered intranasal Narcan 4 mg x 2 doses to good effect. Pt laying in bed, asleep, respirations even and unlabored, wakes to touch but quickly falls back to sleep. Pt unable to tell me exactly what happened this morning but is aware she received too much methadone. Pt is not currently in withdrawal due to Narcan, is resting comfortably. Discussed with provider, plan to resume methadone tomorrow.
--- NOTE | 2024-03-31 14:36 | HO.SUDE ---
Please see marine service manager note dated 03/31.
[2024-03-31] MEDS: Lactulose 20 GM/30 ML SOLUTION 30 GM PO ×2 (15:19→20:25)
[2024-03-31] MEDS: 0.9 % Sodium Chloride Flush 3 ML SYRINGE IVFLUSH (15:20)
[2024-03-31 15:59] VITALS: BP 123/76; PULSE 81; RESP 16; TEMP 36.6; O2SAT 97
--- NOTE | 2024-03-31 16:09 | MHC.CM.PN ---
MANJIT 03/31. Pt came from the inpatient psychiatric unit, plan will be for pt to return there to continue inpatient treatment. Prior to hospitalization pt report being homeless. HCP completed with pt today, now on file. Pt will need assistance with transport at discharge. Pt states she goes to [facility], but doesn't know her PCP's name.
[2024-03-31] MEDS: LORazepam 0.5 MG TABLET PO ×2 (17:47→18:13)
[2024-03-31 17:52] LABS: Appearance Urine Clear; Color Urine Yellow; Glucose Urine UA Negative (Negative); Leukocyte Esterase Urine Large (3+) (Negative); Nitrite Urine Negative (Negative); Specific Gravity - Urine 1.015 (1.005-1.025); UMIC TRIGGER UA YES; Urine Blood Negative (Negative); Urine Ketones Negative (Negative); Urine Protein Negative (Neg-Trace)
[2024-03-31 17:55] LABS: Bacteria Urine None Seen (None Seen); Hyaline Casts Urine 0-2 /LPF (0-2); RBC Urine 0-2 /HPF (0-2)
[2024-03-31 18:04] LABS: Amphetamine Screen Urine Not Detected (Not Detect); Barbiturates, Urine Not Detected (Not Detect); Benzodiazepines Screen Urine Not Detected (Not Detect); Buprenorphine Scr Not Detected (Not Detect); Cannabinoid Screen Urine POSITIVE (Not Detect); Cocaine Screen Urine Not Detected (Not Detect); Fentanyl, urine Not Detected (Not Detect); Methadone Screen, Urine Positive (Not Detect); Opiate Screen Urine Not Detected (Not Detect); Oxycodone Screen Urine Not Detected (Not Detect); Phencyclidine Screen Urine Not Detected (Not Detect)
[2024-03-31] MEDS: Ibuprofen 400 MG TABLET PO (18:13)
[2024-03-31] MEDS: Acetaminophen 325 MG TABLET 650 MG PO (18:14)
--- NOTE | 2024-03-31 18:15 | PC.NURSE ---
pt medicated with PRN Tylenol 650 mg and PRN ibuprofen 400mg for 10/10 abdominal pain at pt request. Additional 0.5 mg lorazepam given as a one time dose per Dr Hughes for anxiety.
[2024-03-31 20:00] VITALS: BP 128/76; PULSE 79; RESP 20; TEMP 37.1; O2SAT 96
[2024-03-31 20:25] VITALS: BP 133/88
[2024-03-31] MEDS: cloNIDine HCL 0.1 MG TABLET PO (20:25)
[2024-03-31] MEDS: QUEtiapine Fumarate 300 MG TABLET PO (20:25)
[2024-03-31] MEDS: polyethylene glycoL 3350 17 GM POWD.PACK PO (20:25)
[2024-03-31] MEDS: Docusate Sodium 100 MG CAPSULE PO (20:27)
[2024-03-31] MEDS: OXcarbazepine 300 MG TABLET PO (20:27)
[2024-04-01] VITALS: BP 121/69; PULSE 73; RESP 20; TEMP 36.3; O2SAT 97
[2024-04-01] MEDS: 0.9 % Sodium Chloride Flush 3 ML SYRINGE IVFLUSH ×2 (00:44→09:26)
[2024-04-01] MEDS: Ketorolac Tromethamine 30 MG/ML VIAL IVPUSH (03:06)
[2024-04-01 03:36] VITALS: BP 123/72; PULSE 75; RESP 20; TEMP 36.4; O2SAT 97
[2024-04-01 07:44] LABS: MANUAL DIFF FLAG NO
[2024-04-01 07:57] LABS: Basophils Percent Auto 0.4 % (0-2); Eosinophils Absolute Auto 0.3 X10*3/uL (0.0-0.4); Eosinophils Percent Auto 4.6 % (0-4); Hematocrit 33.2 % (37.0-47.0); Hemoglobin 11.3 g/dl (12.0-16.0); Imm Gran Abs Auto 0.01 X10*3/uL (0.00-0.03); Imm Gran Pct Auto 0.2 % (0.0-0.4); Lymphocytes Absolute Auto 1.4 X10*3/uL (1.2-4.9); Lymphocytes Percent Auto 25.9 % (20-40); Mean Corpuscular Hemoglobin 30.1 pg (27.0-33.0); Mean Corpuscular Volume 88.3 fL (80.0-98.0); Mean Platelet Volume 12.5 fL (9.4-12.3); Monocytes Absolute Auto 0.6 X10*3/uL (0.1-1.2); Monocytes Percent Auto 11.4 % (2-11); Neutrophils Absolute Auto 3.1 x10*3/uL (2.0-8.3); Neutrophils Percent Auto 57.5 % (45-73); Platelet Count 140 X10*3/uL (160-400); Red Blood Count 3.76 X10*6/uL (4.20-5.50); Red Cell Distribution Width 13.3 % (11.0-16.0); White Blood Count 5.5 X10*3/uL (4.8-10.8)
[2024-04-01 08:00] VITALS: BP 126/78; PULSE 70; RESP 17; TEMP 36.3; O2SAT 97
[2024-04-01 08:09] LABS: Magnesium 1.8 mg/dL (1.6-2.6)
[2024-04-01] MEDS: Nicotine 21 MG PATCH.TD24 TRANSDERMA (09:22)
[2024-04-01] MEDS: methADONE HCl 20 MG/2 ML ORAL.CONC 70 MG PO (09:23)
[2024-04-01] MEDS: Thiamine HCL 100 MG TABLET PO (09:25)
[2024-04-01] MEDS: Lactulose 20 GM/30 ML SOLUTION 30 GM PO (09:25)
[2024-04-01] MEDS: buPROPion HCl XL 150 MG TAB.ER.24H PO (09:25)
[2024-04-01] MEDS: OXcarbazepine 300 MG TABLET PO (09:25)
[2024-04-01] MEDS: Folic Acid 1 MG TABLET PO (09:25)
[2024-04-01] MEDS: Docusate Sodium 100 MG CAPSULE PO (09:25)
[2024-04-01] MEDS: Lidocaine 4 % Patch ADH..PATCH 1 PATCH TRANSDERMA (09:26)
[2024-04-01] MEDS: Acetaminophen 325 MG TABLET 650 MG PO (09:26)
[2024-04-01 09:31] VITALS: BP 128/78
[2024-04-01] MEDS: cloNIDine HCL 0.1 MG TABLET PO (09:31)
[2024-04-01] MEDS: Nicotine Polacrilex 2 MG GUM 4 MG BUCCAL (09:32)
[2024-04-01] MEDS: LORazepam 0.5 MG TABLET PO (09:32)
--- NOTE | 2024-04-01 10:05 | P.DS_ITS ---
DS: Providers Provider Date of Service: 04/01/24 Date of admission: 03/31/24 11:08 Primary care physician: Unknown Physician Consults: 03/31/24 11:54 Addiction Medicine Routine Consulting Provider: Addiction Covering Reason for consultation: OUD; possible methadone OD on M5 03/31/24 12:07 Consult for Sitter Routine Reason for consultation: Pt from with SI Has provider been notified: Yes DS: Diagnosis Discharge Diagnosis (1) Opiate overdose: Status: Acute DS: Summary Hospital Course Hospital Course: from initial hpi: 43-year-old female with a PMH significant for?polysubstance use disorder, anxiety, and depression who who initially presented to the ED on 03/23/2024 with increasing depression and SI. Patient was admitted to psychiatric unit on 03/24/2024 and has been seen by hospitalist services multiple times for upper right buttock rash and lower back and abdominal pain. Patient has been lethargic and not falling asleep throughout admission, and there has been some speculation she has been using contraband, though nothing has been observed. Room and skin check were negative. Patient's methadone was increased from 60 mg yesterday to 70 mg today. 60mg order was discontinued, but it looks like today patient received both a 60 mg and 70 mg dose of methadone. Patient's soon became somnolent and altered, and was administered 4 mg Narcan intranasally x2 doses with good effect. Patient was then transferred to hospital floor on telemetry for observation for likely methadone overdose. Patient currently complaining of nausea, vomiting, abdominal pain, and lower leg pain. hospital course: Patient was observed after methadone overdose complicated by acute toxic encephalopathy. She did receive 2 doses of intranasal Narcan, had some withdrawal symptoms but by next morning had completely resolved. She did not have any issues with QT prolongation. She has been restarted on methadone 70 mg daily. For low back pain CT scan showed nerve root impingement L5-S1. Can continue with conservative management. For abdominal pain this is likely due to constipation. CT scan was negative except for stool burden. She continue with bowel regimen. Also noted to be positive for Trichomonas, bacterial vaginosis, Fouzia. Will be given Diflucan 150 mg once and can repeat in 2 days. Should also have Flagyl 500 mg b.i.d. for 1 week. Patient will be transferred back to Time Attestation Discharge Coordination Time (in mins): 32 Quality: Safe Use of Opioids Does Pt have an Active Cancer Diagnosis on the Problem List?: No Quality: Stroke Does the patient have a stroke diagnosis?: No Physical Exam Vital Signs: Vital Signs: Last Vital Signs Temp 97.4 F 04/01/24 08:00 Pulse 70 04/01/24 08:00 Resp 17 04/01/24 08:00 BP 128/78 04/01/24 09:31 Pulse Ox 97 04/01/24 08:00 O2 Del Method Room Air 04/01/24 08:00 BMI result Body Mass Index 23.4 General: AO X 3, no acute distress Resp: CTA bilateral, no accessory muscles used CVS: S1,S2,RRR GI: soft, non tender, non distended, LLQ 3cm superficial hardness, ?lipoma Neuro: motor grossly intact, alert Psych: appropriate affect, appropriate insight skin rash on buttock unchanged DS: Data Data Completed and Pending Labs on day of discharge: Laboratory Results - last 24 hr 03/31/24 03/31/24 04/01/24 12:08 16:02 07:00 WBC 5.5 RBC 3.76 L Hgb 11.3 L Hct 33.2 L MCV 88.3 MCH 30.1 MCHC 34.0 RDW 13.3 Plt Count 140 L MPV 12.5 H Immature Gran % (Auto) 0.2 Neut % (Auto) 57.5 Lymph % (Auto) 25.9 [place] % (Auto) 11.4 H Eos % (Auto) 4.6 H Baso % (Auto) 0.4 Lymph # (Auto) 1.4 [place] # (Auto) 0.6 Eos # (Auto) 0.3 Baso # (Auto) 0.0 Abs Immat Gran (auto) 0.01 Absolute Neuts (auto) 3.1 Absolute Nucleated RBC 0.000 Nucleated RBC % (auto) 0.0 Hold Purple Top SEE NOTE Sodium 140 Potassium 3.9 Chloride 101 Carbon Dioxide 29 Anion Gap 14 BUN 16 Creatinine 0.71 Estim Creat Clear Calc 77.9 Estimated GFR > 60 Random Glucose 93 Calcium 9.3 Magnesium 1.8 Total Bilirubin 0.2 AST 119 H ALT 95 H Alkaline Phosphatase 80 Total Protein 6.2 L Albumin 3.8 Urine Color Yellow Urine Appearance Clear Urine pH 8.0 Ur Specific [place] 1.015 Urine Protein Negative Urine Glucose (UA) Negative Urine Ketones Negative Urine Blood Negative Urine Nitrite Negative Ur Leukocyte Esterase Large (3+) H Urine RBC 0-2 Urine WBC 11-20 H Ur Squamous Epith Cells 3-5 Urine Bacteria None Seen Hyaline Casts 0-2 Urine Opiates Screen Not Detected Ur Buprenorphine Scrn Not Detected Ur Oxycodone Screen Not Detected Urine Methadone Screen Positive H Urine Fentanyl Screen Not Detected Ur Barbiturates Screen Not Detected Ur Phencyclidine Scrn Not Detected Ur Amphetamines Screen Not Detected U Benzodiazepines Scrn Not Detected Urine Cocaine Screen Not Detected U Marijuana (THC) Screen POSITIVE H Discharge Plan Discharge Anticipated Discharge Date/Time: 04/01/24 09:59 Patient Disposition: Xfer Other Discharge Diagnosis: opiate overdose Referrals: Physician,Unknown J [Primary Care Provider] - 1 Week Discharge Medications: New metronidazole 500 mg Tablet 500 mg PO Q12H Qty: 14 0RF Continued acetaminophen 325 mg tablet 650 mg PO Q6H PRN (Reason: Fever Or Pain) thiamine HCl (vitamin B1) 100 mg Tablet 100 mg PO DAILY oxcarbazepine 300 mg Tablet 300 mg PO BID magnesium hydroxide [Milk of Magnesia] 400 mg/5 mL Suspension 30 ml PO DAILY PRN (Reason: Constipation) nicotine (polacrilex) [Nicorette] 4 mg Gum 4 mg BUCCAL Q2H PRN (Reason: Nicotine Cravings) nicotine 21 mg/24 hr Patch 24 Hour 1 patch TRANSDERMAL DAILY docusate sodium 100 mg Capsule 100 mg PO BID folic acid 1 mg Tablet 1 mg PO DAILY methadone 10 mg/mL Concentrate 70 mg PO DAILY bupropion HCl 150 mg Tablet Extended Release 24 Hr 150 mg PO DAILY naloxone [Narcan] 4 mg/actuation [place],Non-Aerosol 4 mg INTRANASAL Q2M PRN (Reason: Opiate Reversal) Rx Instructions: spray 1 dose into ONE nostril; alternate nostrils w each dose until help arrives clonidine HCl 0.1 mg Tablet 0.1 mg PO BEDTIME clonidine HCl 0.1 mg Tablet 0.1 mg PO Q4H PRN (Reason: mild anxiety) quetiapine 300 mg Tablet 300 mg PO BEDTIME lidocaine 4 % Adhesive Patch,Medicated 1 patch TOPICAL DAILY Rx Instructions: apply to lower back/buttocks Discontinued doxycycline monohydrate 100 mg Capsule 100 mg PO BID Discharge Orders: Discharge Order (Routine); Ordered 04/01/24 Ordered By: Micah Hughes Diet: Advance to usual diet Activity on Discharge: As tolerated Stand Alone Forms: Patient Portal Discharge page Print Language: Pashto Care Plan Goals: recovery Health Concerns: opiate overdose, trich, bv, fouzia Plan of Treatment: management on M5 flagyl for 1 week repeat diflucan 150mg in 2 days Assessment: see above
[2024-04-01] MEDS: metroNIDAZOLE 500 MG TABLET PO (10:42)
[2024-04-01] MEDS: Fluconazole 150 MG TABLET PO (10:42)
== END 2024-04-01 11:36 | disposition other institution (70) ==
PROVIDERS: Admitting Provider Student in an Organized Health Care Education/Training Program; Visit Provider Internal Medicine
DX: G92.8 Other toxic encephalopathy (principal); T40.3X1A Poisoning by methadone, accidental (unintentional), initial encounter; Y92.239 Unspecified place in hospital as the place of occurrence of the external cause; F32.A Depression, unspecified; R53.83 Other fatigue; M54.50 Low back pain, unspecified; R10.9 Unspecified abdominal pain; F39 Unspecified mood [affective] disorder; R11.2 Nausea with vomiting, unspecified; F11.20 Opioid dependence, uncomplicated; F19.90 Other psychoactive substance use, unspecified, uncomplicated; Z79.899 Other long term (current) drug therapy
CPT/HCPCS: 36415; 80053; 80307; 81001; 83735; 85025; 96361; 96372; 96374; 99222; J1650; J1885

== ENCOUNTER → 2024-03-31 11:08 | Outpatient (BNV) | payer OTHER, SELFPAY | PROVIDERS: Admitting Provider Student in an Organized Health Care Education/Training Program; Visit Provider Student in an Organized Health Care Education/Training Program | DX: T40.3X1A Poisoning by methadone, accidental (unintentional), initial encounter (principal) | CPT/HCPCS: 99222; 99239 ==

== ENCOUNTER 2024-04-01 11:37 | Inpatient (IN) | payer OTHER, SELFPAY ==
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
[2024-04-01 12:42] VITALS: BP 134/83; PULSE 73; RESP 16; TEMP 36.9; O2SAT 97
[2024-04-01] MEDS: LORazepam 0.5 MG TABLET PO ×3 (14:28→20:26)
[2024-04-01] MEDS: Docusate Sodium 100 MG CAPSULE PO ×2 (14:28→20:25)
--- NOTE | 2024-04-01 18:55 | PC.NURSE ---
pt arrived on the unit at 1230 via wheel chair from [facility] [place] she was admitted for medical observation. She presents for continued depression and SI. Skin check performed, vitals and admission process obtained and completed. Pt placed on 15 minute checks for safety.
[2024-04-01 20:00] VITALS: BP 151/84; PULSE 78; RESP 16; TEMP 36.4; O2SAT 99
[2024-04-01 20:24] VITALS: BP 151/84
[2024-04-01] MEDS: cloNIDine HCL 0.1 MG TABLET PO (20:24)
[2024-04-01] MEDS: metroNIDAZOLE 500 MG TABLET PO (20:24)
[2024-04-01] MEDS: QUEtiapine Fumarate 300 MG TABLET PO (20:25)
[2024-04-01] MEDS: OXcarbazepine 300 MG TABLET PO (20:25)
[2024-04-01] MEDS: Acetaminophen 325 MG TABLET 650 MG PO (20:25)
[2024-04-01] MEDS: Nicotine Polacrilex 2 MG GUM BUCCAL (21:55)
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
[2024-04-02] MEDS: Nicotine Polacrilex 2 MG GUM BUCCAL ×4 (00:18→11:54)
[2024-04-02] MEDS: Acetaminophen 325 MG TABLET 650 MG PO ×2 (04:56→17:23)
[2024-04-02 08:04] LABS: Alanine Aminotransferase 97 U/L (0-31); Albumin Level 3.4 g/dL (3.5-5.0); Alkaline Phosphatase 77 U/L (39-117); Anion Gap 11 (12-20); Aspartate Amino Transferase 87 U/L (5-31); Bilirubin Total 0.1 mg/dL (0.0-1.0); Blood Urea Nitrogen 14 mg/dL (9-16); Carbon Dioxide 30 mmol/L (22-29); Chloride 102 mmol/L (96-108); Cholesterol 125 mg/dL (<200); Estimated Glomerular Filt Rate > 60; Glucose Fasting 108 mg/dL (60-99); HDL Cholesterol 33 mg/dL (>40); LDL Cholesterol Calculated 68 mg/dL (<100); Potassium 4.7 mmol/L (3.3-5.1); Sodium 138 mmol/L (135-145); Total Protein 5.6 g/dL (6.5-8.0); Triglycerides 123 mg/dL (<150)
[2024-04-02] MEDS: Docusate Sodium 100 MG CAPSULE PO ×3 (08:19→20:02)
[2024-04-02] MEDS: OXcarbazepine 300 MG TABLET PO ×2 (08:19→20:01)
[2024-04-02] MEDS: metroNIDAZOLE 500 MG TABLET PO ×2 (08:19→20:02)
[2024-04-02] MEDS: methADONE HCl 20 MG/2 ML ORAL.CONC 70 MG PO (08:20)
[2024-04-02] MEDS: LORazepam 0.5 MG TABLET PO ×2 (08:26→11:54)
[2024-04-02 08:29] VITALS: BP 130/71; PULSE 83; RESP 16; TEMP 37.1; O2SAT 97
[2024-04-02] MEDS: Lidocaine 4 % Patch ADH..PATCH 1 PATCH TRANSDERMA (09:14)
--- NOTE | 2024-04-02 10:57 | P.PNPSI_ITS ---
Subjective Subjective Date of Service: 04/02/24 Reason For Visit: depression Subjective Notes: Conditional Voluntary Interim History: Ongoing physical concerns- back pain, GI discomfort and swelling (surgery and GI consults pending). Red area lower back/upper buttock, some blanching and mild tenderness. Anxiety high. Evening/night nursing also informed life insurance underwriter of med error last night (pt received metformin 1000mg, that was due for another patient) and communicated to life insurance underwriter that pt was informed. No concerns voiced as per patient today. Ref anxiety- will change ativan to 1mg three times daily. Pt understanding this will be tapared off by primary team and start wellbutrin- both consistent with teams admission plan. Clonidine prn available. Will also adjust nicotine replacement treatment as per pt needs. Hydrocortisone cream for red area on lower back and monitor. Back pain x rays + hospitalist consult - pt requested same. Medication Compliance: Yes Side effects from medications: No Attending Groups: Yes Review of Systems Acute medical concerns: No Review of Systems Review of Systems As per 04/01/24: abdominal pain and discomfort- There is a lump and lower left quadrant approximately 6 or 7 cm in width, some tenderness and maybe reducible. Will request surgery consult for same. hand and back discomfort- Requesting wheelchair will request physical therapy evaluation for patient's mobility needs and best way to support same, -some difficulty with swallowing- has had this in the past and required esophageal dilation, which was many years ago i.e. in her 20s. Feels this may be starting again I can feel it building up sometimes , but is able to eat full meals, which life insurance underwriter witnessed without obvious difficulty and drink fluids.. 04/02/24: Hydrocortisone cream for red area on lower back and monitor. Back pain x rays + hospitalist consult - pt requested same. Mental Status Exam Mental Status Exam Narrative: Hospital clothing. Fair self-care. Pleasant. Frustration around physical discomfort. Anxiety very high. Depressed. No SI. No psychosis. Insight and judgment fair Diagnostics Vital Signs (24Hr): Vital Signs - 24 hr 04/01/24 12:42 04/01/24 20:00 04/01/24 20:24 Temperature 98.4 F 97.6 F Pulse Rate 73 78 Respiratory Rate 16 16 Blood Pressure 134/83 151/84 H 151/84 H Pulse Oximetry 97 99 Oxygen Delivery Method Room Air Room Air Labs 04/02/24 07:45 Labs: Laboratory Results - last 48 hr 04/02/24 07:45 Sodium 138 Potassium 4.7 D Chloride 102 Carbon Dioxide 30 H Anion Gap 11 L BUN 14 Creatinine 0.70 Estim Creat Clear Calc TNP Estimated GFR > 60 Fasting Glucose 108 H Calcium 9.0 Total Bilirubin 0.1 AST 87 H ALT 97 H Alkaline Phosphatase 77 Total Protein 5.6 L Albumin 3.4 L Triglycerides 123 Cholesterol 125 LDL Cholesterol, Calc 68 HDL Cholesterol 33 L Medications Medications Current Medications Acetaminophen (Acetaminophen 325 Mg Tablet) 650 mg PO Q6H PRN PRN Reason: Headache/Pain Mild Scale (1-3) Last Admin: 04/02/24 04:56 Dose: 650 mg Al Hydroxide/Mg Hydroxide (Magnesium Hydrox/Alum Hydrox 30 Ml Oral.Susp) 30 ml PO Q6H PRN PRN Reason: Heartburn/Nausea Clonidine HCl (Clonidine Hcl 0.1 Mg Tablet) 0.1 mg PO BEDTIME [facility]; Protocol Last Admin: 04/01/24 20:24 Dose: 0.1 mg Clonidine HCl (Clonidine Hcl 0.1 Mg Tablet) 0.1 mg PO TID PRN; Protocol PRN Reason: anxiety Docusate Sodium (Docusate Sodium 100 Mg Capsule) 100 mg PO TID [facility] Last Admin: 04/02/24 08:19 Dose: 100 mg Fluconazole (Fluconazole 150 Mg Tablet) 150 mg PO ONCE ONE Stop: 04/03/24 09:01 Hydroxyzine HCl (Hydroxyzine Hcl 50 Mg Tablet) 50 mg PO Q6H PRN PRN Reason: Anxiety, insomnia Lidocaine (Lidocaine 4 % Patch Adh..Patch) 1 patch TRANSDERMA DAILY [facility]; Protocol Last Admin: 04/02/24 09:14 Dose: 1 patch Lorazepam (Lorazepam 0.5 Mg Tablet) 0.5 mg PO QID [facility] Last Admin: 04/02/24 08:26 Dose: 0.5 mg Lorazepam (Lorazepam 0.5 Mg Tablet) 0.5 mg PO Q8H PRN PRN Reason: severe anxiety Magnesium Hydroxide (Milk Of Magnesia 30 Ml Oral.Susp) 30 ml PO DAILY PRN PRN Reason: Constipation Methadone HCl (Methadone Hcl 20 Mg/2 Ml Oral.Conc) 70 mg PO DAILY [facility] Last Admin: 04/02/24 08:20 Dose: 70 mg Metronidazole (Metronidazole 500 Mg Tablet) 500 mg PO BID [facility] Last Admin: 04/02/24 08:19 Dose: 500 mg Mineral Oil (Mineral Oil Enema 133 Ml Enema) 133 ml SD DAILY PRN PRN Reason: severe constipation Nicotine Polacrilex (Nicotine Polacrilex 2 Mg Gum) 2 mg BUCCAL Q2H PRN PRN Reason: Nicotine Cravings Last Admin: 04/02/24 09:14 Dose: 2 mg Oxcarbazepine (Oxcarbazepine 300 Mg Tablet) 300 mg PO BID [facility] Last Admin: 04/02/24 08:19 Dose: 300 mg Quetiapine Fumarate (Quetiapine Fumarate 300 Mg Tablet) 300 mg PO BEDTIME [facility] Last Admin: 04/01/24 20:25 Dose: 300 mg Senna (Senna [facility] Extract Oral Syrup 15 Ml Syrup) 15 ml PO BEDTIME [facility] Last Admin: 04/01/24 20:24 Dose: 15 ml Allergies Allergies Allergy/AdvReac Type Severity Reaction Status Date / Time trazodone AdvReac Severe RLS Verified 03/23/24 22:25 Assessment & Plan Assessment & Plan (1) PTSD (post-traumatic stress disorder): Status: Acute Code(s): F43.10 - Post-traumatic stress disorder, unspecified (2) MDD (major depressive disorder), recurrent severe, without psychosis: Status: Acute Code(s): F33.2 - Major depressive disorder, recurrent severe without psychotic features (3) Opioid use disorder: Status: Acute Code(s): F11.90 - Opioid use, unspecified, uncomplicated (4) Cocaine use disorder: Status: Acute Code(s): F14.10 - Cocaine abuse, uncomplicated Plan Overall well-maintained medication regimen prior to medical floor transfer yesterday. Will have Ativan as needed in addition to scheduled Ativan, given significant anxiety associated with recent events. Regarding physical concerns, complaining of: abdominal pain and discomfort- There is a lump and lower left quadrant approximately 6 or 7 cm in width, some tenderness and maybe reducible. This has been present for around 4-5 weeks with some protrusion now for around 4 days. Will request surgery consult for same. hand and back discomfort- Requesting wheelchair will request physical therapy evaluation for patient's mobility needs and best way to support same, Some difficulty with swallowing- has had this in the past and required esophageal dilation, which was many years ago i.e. in her 20s. Feels this may be starting again I can feel it building up sometimes , but is able to eat full meals, which life insurance underwriter witnessed without obvious difficulty and drink fluids.. Will request GI consult regarding same. Patient is aware that consult will be placed as routine and therefore unlikely to be seen over the weekend, but feels positive and supported by this plan. Also of note, as per medicine: noted to be positive for Trichomonas, bacterial vaginosis, Fouzia. Received Diflucan 150 mg once and can repeat in 2 days. Should also have Flagyl 500 mg b.i.d. for 1 week. 04/02/24: Ref anxiety- will change ativan to 1mg three times daily. Pt understanding this will be tapared off by primary team and start wellbutrin- both consistent with teams admission plan. Clonidine prn available. Hydrocortisone cream for red area on lower back and monitor. Back pain x rays + hospitalist consult - pt requested same. Reason for continued inpatient stay Substantial Risk for: inability to function Time Spent With Patient Time: Total time managing care of this patient today ____ minutes.
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
--- NOTE | 2024-04-02 12:42 | P.CONGS_ITS ---
History of Present Illness Consult details Consult date: 04/02/24 Requesting physician: Micah Hughes Narrative: 43-year-old female with a PMH significant for?polysubstance use disorder, anxiety, and depression who who initially presented to the ED on 03/23/2024 with increasing depression and SI. Patient was admitted to [facility] unit on 03/24/2024 and has been seen by hospitalist services multiple times for upper right buttock rash and lower back and abdominal pain. We are now being asked to evaluate here for a llq mass that is tender. Pt tells me this has been here for a long time and continues to be tender. She denies and trauma to the area and says as far as she knows she has not received any shots in the area here . [facility] Past Medical History Medical History Hypothyroid Opioid use disorder Cocaine use disorder Alcohol withdrawal Alcohol use disorder PTSD (post-traumatic stress disorder) MDD (major depressive disorder), recurrent severe, without psychosis Active substance abuse Acute anxiety Depression Social History Social History Household Members: None Household Members Other:: homeless Housing: Homeless Housing Other:: homeless w/ Do you presently have visiting nurse or other home services: No Alcohol intake: current Alcohol intake frequency: 3 or more drinks per day Alcohol type: hard liquor Comment: sitter Patient Tobacco Use Status: Current everyday Tobacco user Tobacco use type: Cigarette Cigarette Packs Per Day: 1 Cigarettes Per Day: 20.0 Smoked in Last 30 Days: Yes e-Cigarette/Vaping Use: Never Used Patient Interested in Nicotine Replacement: Yes Patient Given Instructions on How to Stop Smoking: No (pt denies wanting to quit) Second Hand Smoke Exposure: Yes Use of substances other than those prescribed or required for medical reasons: Yes Substance Use Type: Crack/Cocaine, Heroin, IV Drugs, Marijuana, Opiates, Painkillers, Prescription Drugs and Caffiene Substance Use Frequency: Chronic Longstanding Last Used Substance: Just Prior to Admission Last Used Substance Other:: crack/cocaine Currently Displaying Signs/Symptoms of Drug Intoxication Withdrawal: No Any prior treatment program specific to substance use: Yes Have you been hit, kicked, punched, or otherwise hurt by someone within the past year? If so, by whom?: No Do you feel safe in your current relationship?: No Is there a partner from a previous relationship who is making you feel unsafe now?: No Are you made to feel afraid or neglected: No Spiritual Healthcare Practices: n/a Nondenominational Healthcare Practices: n/a Cultural Healthcare Practices: n/a Advance Directives: No Advance Directives Information Provided: No Do you have a plan to hurt others: No Plan Recently lost weight without trying: No Eating poorly because of decreased appetite: No Nutrition Risks: No Nutritional Risk Patient : No : No Poor oral hygiene: No service: No Sexual orientation: Straight/Heterosexual Meds Allergies Allergy/AdvReac Type Severity Reaction Status Date / Time trazodone AdvReac Severe RLS Verified 03/23/24 22:25 Active Medications: Current Medications Acetaminophen (Acetaminophen 325 Mg Tablet) 650 mg PO Q6H PRN PRN Reason: Headache/Pain Mild Scale (1-3) Last Admin: 04/02/24 04:56 Dose: 650 mg Al Hydroxide/Mg Hydroxide (Magnesium Hydrox/Alum Hydrox 30 Ml Oral.Susp) 30 ml PO Q6H PRN PRN Reason: Heartburn/Nausea Bupropion HCl (Bupropion Hcl Xl 150 Mg Tab.Er.24h) 150 mg PO DAILY [facility] Clonidine HCl (Clonidine Hcl 0.1 Mg Tablet) 0.1 mg PO BEDTIME [facility]; Protocol Last Admin: 04/01/24 20:24 Dose: 0.1 mg Clonidine HCl (Clonidine Hcl 0.1 Mg Tablet) 0.1 mg PO TID PR[facility]; Protocol PRN Reason: anxiety Docusate Sodium (Docusate Sodium 100 Mg Capsule) 100 mg PO TID [facility] Last Admin: 04/02/24 08:19 Dose: 100 mg Fluconazole (Fluconazole 150 Mg Tablet) 150 mg PO ONCE ONE Stop: 04/03/24 09:01 Hydrocortisone (Hydrocortisone 1 % Cream 28.35 Gm Tube) 1 appl TOPICAL BID [facility]; Protocol Hydroxyzine HCl (Hydroxyzine Hcl 50 Mg Tablet) 50 mg PO Q6H PRN PRN Reason: Anxiety, insomnia Lidocaine (Lidocaine 4 % Patch Adh..Patch) 1 patch TRANSDERMA DAILY [facility]; Protocol Last Admin: 04/02/24 09:14 Dose: 1 patch Lorazepam (Lorazepam 1 Mg Tablet) 1 mg PO TID [facility] Magnesium Hydroxide (Milk Of Magnesia 30 Ml Oral.Susp) 30 ml PO DAILY PRN PRN Reason: Constipation Methadone HCl (Methadone Hcl 20 Mg/2 Ml Oral.Conc) 70 mg PO DAILY [facility] Last Admin: 04/02/24 08:20 Dose: 70 mg Metronidazole (Metronidazole 500 Mg Tablet) 500 mg PO BID [facility] Last Admin: 04/02/24 08:19 Dose: 500 mg Mineral Oil (Mineral Oil Enema 133 Ml Enema) 133 ml [place] DAILY PRN PRN Reason: severe constipation Nicotine (Nicotine 21 Mg Patch.Td24) 21 mg TRANSDERMA DAILY [facility] Nicotine Polacrilex (Nicotine Polacrilex 2 Mg Gum) 4 mg BUCCAL Q2H PRN PRN Reason: Nicotine Cravings Oxcarbazepine (Oxcarbazepine 300 Mg Tablet) 300 mg PO BID [facility] Last Admin: 04/02/24 08:19 Dose: 300 mg Quetiapine Fumarate (Quetiapine Fumarate 300 Mg Tablet) 300 mg PO BEDTIME [facility] Last Admin: 04/01/24 20:25 Dose: 300 mg Senna (Senna [place] Extract Oral Syrup 15 Ml Syrup) 15 ml PO BEDTIME [facility] Last Admin: 04/01/24 20:24 Dose: 15 ml Home Medications ?Medication ?Instructions ?Recorded ?Confirmed ?Last Taken ?Type acetaminophen 325 mg tablet 650 mg PO Q6H PRN Fever Or Pain 03/31/24 03/31/24 03/31/24 History bupropion HCl 150 mg 24 hr tablet, 150 mg PO DAILY 03/31/24 03/31/24 03/31/24 History extended release clonidine HCl 0.1 mg tablet 0.1 mg PO BEDTIME 03/31/24 03/31/24 03/30/24 History clonidine HCl 0.1 mg tablet 0.1 mg PO Q4H PRN mild anxiety 03/31/24 03/31/24 03/31/24 History docusate sodium 100 mg capsule 100 mg PO BID 03/31/24 03/31/24 03/31/24 History folic acid 1 mg tablet 1 mg PO DAILY 03/31/24 03/31/24 03/31/24 History lidocaine 4 % topical patch 1 patch topical DAILY 03/31/24 03/31/24 03/30/24 History magnesium hydroxide 400 mg/5 mL 30 ml PO DAILY PRN Constipation 03/31/24 03/31/24 Unknown History oral suspension (Milk of Magnesia) methadone 10 mg/mL oral concentrate 70 mg PO DAILY 03/31/24 03/31/24 03/31/24 History naloxone 4 mg/actuation nasal 4 mg intranasal Q2M PRN Opiate 03/31/24 03/31/24 Unknown History spray (Narcan) Reversal nicotine (polacrilex) 4 mg gum 4 mg buccal Q2H PRN Nicotine 03/31/24 03/31/24 Unknown History (Nicorette) Cravings nicotine 21 mg/24 hr daily 1 patch transdermal DAILY 03/31/24 03/31/24 03/31/24 History transdermal patch oxcarbazepine 300 mg tablet 300 mg PO BID 03/31/24 03/31/24 03/31/24 History quetiapine 300 mg tablet 300 mg PO BEDTIME 03/31/24 03/31/24 03/30/24 History thiamine HCl (vitamin B1) 100 mg 100 mg PO DAILY 03/31/24 03/31/24 03/31/24 History tablet Physical Exam 2 Vital Signs: Vital Signs: Last Vital Signs Temp 97.6 F 04/01/24 20:00 Pulse 78 04/01/24 20:00 Resp 16 04/01/24 20:00 BP 151/84 H 04/01/24 20:24 Pulse Ox 99 04/01/24 20:00 O2 Del Method Room Air 04/01/24 20:00 Skin: Other: abdo - llq along the line of midclavicular area with 3 cm mass with some bruising and tender with pt laying down if feels superficial and not beyond the abdo wall muscle the area is tender normal active bowel sounds Results Labs 04/02/24 07:45 Labs: Abnormal lab results 04/02/24 Range/Units 07:45 Carbon Dioxide 30 H (22-29) mmol/L Anion Gap 11 L (12-20) Fasting Glucose 108 H (60-99) mg/dL AST 87 H (5-31) U/L ALT 97 H (0-31) U/L Total Protein 5.6 L (6.5-8.0) g/dL Albumin 3.4 L (3.5-5.0) g/dL HDL Cholesterol 33 L (>40) mg/dL BMP 04/02/24 07:45 Sodium 138 Potassium 4.7 D Chloride 102 Carbon Dioxide 30 H BUN 14 Creatinine 0.70 Calcium 9.0 Liver Function 04/02/24 Range/Units 07:45 Total Bilirubin 0.1 (0.0-1.0) mg/dL AST 87 H (5-31) U/L ALT 97 H (0-31) U/L Alkaline Phosphatase 77 (39-117) U/L Albumin 3.4 L (3.5-5.0) g/dL All other labs normal. Imaging Abdomen CT scan report/results: report reviewed and image reviewed CT scan - pelvis: report reviewed and image reviewed Additional studies: EXAMINATION: CT abdomen pelvis wo IV con CLINICAL INFORMATION: Reason for Exam Abdominal pain, elevated LFTs COMPARISON: No prior CT available for comparison. TECHNIQUE: Multidetector volumetric imaging was performed from the superior aspect of the liver through the pubic symphysis 100 mL of Omnipaque 350 injected Sagittal and coronal reformatted images were obtained on the technologist's workstation. This CT examination was performed using dose optimization techniques as appropriate, variously including the following: *Automated exposure control *Adjustment of mA and/or kV according to patient size (this includes techniques or standardized protocols for targeted exams where dose is matched to indication/reason for exam; i.e. extremities or head) *Use of iterative reconstruction technique DLP: 683 mGy-cm FINDINGS: LOWER THORAX: Mild hazy patchy opacities at lung bases are probably poor inspiration and/or motion. HEPATOBILIARY: No focal hepatic lesions. No biliary ductal dilatation. GALLBLADDER: Gallbladder unremarkable. SPLEEN: Spleen is normal in size. PANCREAS: No focal mass or ductal dilatation. STOMACH AND GASTROINTESTINAL TRACT: Excess amount of stool in the colon suggesting constipation. Hyperdense material in the colon probably from prior CT. There is no bowel distention or thickening. No CT evidence of appendicitis. ADRENALS: No adrenal nodules. KIDNEYS/URETERS: There is a tiny 4 mm nonobstructing stone in the right kidney. There is no hydronephrosis. URINARY BLADDER: Partially decompressed. PELVIC VISCERA: Unremarkable PERITONEUM: No free air or fluid. LYMPH NODES: No lymphadenopathy. VASCULAR:Abdominal aorta normal in size, no aneurysm found. BONES, ABDOMINAL WALL AND SOFT TISSUES: Age-appropriate changes of the spine and skeletal system, no destructive osteolytic or osteosclerotic bone lesion found CT/CT abdomen pelvis wo IV con IMPRESSION: * No CT evidence of acute intra-abdominal process to explain patient's pain symptoms. * Excess amount of stool in the colon suggesting constipation. * Tiny nonobstructing stone in the right kidney. Assessment and Plan (1) Abdominal wall hematoma: Status: Acute Plan CT scan reviewed and on physical exam i think this is a relatively superficial hematoma involving some trauma to the epigastric vessels. It does not seem to be a hernia no bowel issues Would treat conservatively with warm compresses for pain control. she is not anticoagulated. Procedures Date of Service Date of Service: 04/02/24
--- NOTE | 2024-04-02 13:09 | PM.EVENT ---
Event Note Date of Service: 04/02/24 Event Note: patient with known radiculopathy, no further imaging required at this time, would do PT and trial of prednisone taper Time Spent With Patient Time: Total time managing care of this patient today ____ minutes.
[2024-04-02] MEDS: Nicotine 21 MG PATCH.TD24 TRANSDERMA (13:35)
[2024-04-02] MEDS: buPROPion HCl XL 150 MG TAB.ER.24H PO (13:35)
[2024-04-02] MEDS: LORazepam 1 MG TABLET PO ×2 (14:32→20:02)
[2024-04-02] MEDS: Hydrocortisone 1 % Cream 28.35 GM TUBE 1 APPL TOPICAL (14:32)
[2024-04-02] MEDS: Nicotine Polacrilex 2 MG GUM 4 MG BUCCAL (14:33)
--- NOTE | 2024-04-02 15:02 | P.EN_ITS ---
Event Note Date of Service: 04/02/24 Event Note: Communicated with hospitalist regarding consult for back pain. No further imaging required given lumbar CT and radiculopathy noted. It will order prednisone and taper and consult not needed. GI consult that and communicated with production underwriter that upon review of imaging, which included abdominal/pelvis CT, no further imaging was required. Impression was that there may be a hematoma from epigastric vessel and warm compresses are all that is needed. No further int ervention or recommendations. Surgery consult pending Time Spent With Patient Time: Total time managing care of this patient today ____ minutes.
--- NOTE | 2024-04-02 17:57 | PM.EVENT ---
Event Note Date of Service: 04/02/24 Event Note: GI Consult-Full note dictated-History from patient. EMR, and nursing staff. Imp/Rec: 1. Dysphagia. She describes a previous EGD with dilation for an esophageal stricture about 10 years ago. Her increasing symptoms over the past month seem c/w a recurrent stricture. Denies any GERD symptoms at this time. I have recommended an upper endoscopy with dilation for Wednesday, 04/04, or Wednesday, 04/05, this week with me or Dr. Moore. My office will schedule and I will then place the orders. Full consent has been obtained from her for this, including risks of bleeding and perforation. She may need to be started on a PPI depending upon the endoscopic findings. 2. Constipation. Chronic and probably due to her meds including Methadone. Will add Miralax BID to her current regimen. D/W patient in detail. She is comfortable with this plan. Thanks. Time Spent With Patient Time: Total time managing care of this patient today ____ minutes.
[2024-04-02] MEDS: Gabapentin 300 MG CAPSULE PO ×2 (18:28→20:02)
[2024-04-02] MEDS: Ibuprofen 600 MG TABLET PO (18:29)
[2024-04-02] MEDS: predniSONE 20 MG TABLET PO (18:31)
[2024-04-02] MEDS: polyethylene glycoL 3350 17 GM POWD.PACK PO (18:31)
[2024-04-02 20:00] VITALS: BP 149/92; PULSE 76; RESP 16; TEMP 36.8; O2SAT 97
[2024-04-02] MEDS: QUEtiapine Fumarate 300 MG TABLET PO (20:02)
[2024-04-02 20:03] VITALS: BP 145/93
[2024-04-02] MEDS: cloNIDine HCL 0.1 MG TABLET PO (20:03)
[2024-04-03] VITALS (8 sets, daily range): BP systolic 134–186; BP diastolic 76–95; PULSE 83–89; RESP 15–20; TEMP 36.7–37.3; O2SAT 97–98
[2024-04-03] MEDS: Ibuprofen 600 MG TABLET PO (03:21)
[2024-04-03] MEDS: Acetaminophen 325 MG TABLET 650 MG PO ×3 (03:21→21:11)
[2024-04-03] MEDS: Nicotine Polacrilex 2 MG GUM 4 MG BUCCAL ×4 (04:20→22:26)
--- NOTE | 2024-04-03 04:35 | CONS_ITS ---
DATE OF SERVICE: 04/02/2024 REASON FOR CONSULTATION: Dysphagia and constipation. HISTORY OF PRESENT ILLNESS: The patient is a 43-year-old female with underlying medical problems including PTSD, depression, and substance abuse, who describes a history of a previous esophageal stricture dilated about 10 years ago by endoscopy with balloon dilation. She describes that did help her symptoms greatly and she was fine in that regard up until about a month or so ago. She now describes persistent episodes of dysphagia to most foods and has to eat very carefully. She does describe occasional symptoms of an esophageal obstruction with some vomiting. She denies any heartburn at the present time. She has also been constipated, but denies any signs of GI bleeding. She denies any subsequent upper endoscopies since the one she had 10 years ago and has never had a colonoscopy. CURRENT MEDICATIONS: Include acetaminophen, Wellbutrin, clonidine, Colace, gabapentin, Atarax p.r.n., ibuprofen p.r.n., lidocaine patch, lorazepam, methadone, metronidazole, milk of magnesia p.r.n., mineral oil enema p.r.n., nicotine patch, Trileptal, Seroquel, and senna. PAST MEDICAL HISTORY: Carpal tunnel surgery. Upper endoscopy for esophageal stricture as above. Substance abuse. PTSD. Depression. She denies any medical problems such as heart disease, diabetes, or stroke. She does have anxiety as well. SOCIAL HISTORY: She had been drinking alcohol regularly up until this admission with about a pint of liquor per day. She does smoke. FAMILY HISTORY: Noncontributory. REVIEW OF SYSTEMS: CONSTITUTIONAL: She has been feeling poorly in relation to her psychiatric condition with fatigue and some overall constitutional symptoms. CARDIAC: No chest pain. PULMONARY: No coughing or hemoptysis. GI: As above. She denies any melena nor hematochezia. She has not noticed any jaundice. She denies any abdominal pains. URINARY: No dysuria. No hematuria. PHYSICAL EXAMINATION: GENERAL: The patient is a pleasant, alert, comfortable, cooperative female, in no distress. SKIN: Warm and dry. CHEST: Clear. CARDIAC: S1, S2. ABDOMEN: Soft. Normal bowel sounds. Nondistended and nontender. LABORATORY DATA: White blood cell count 5.5, hemoglobin 11.3, MCV 88, platelets 140,000. Normal electrolytes. BUN 14, creatinine 0.7, AST 87, ALT 97, total bilirubin 0.1, alkaline phosphatase 77, albumin 3.4. Hepatitis B antigen is negative. Hepatitis B surface antibody is positive. Hepatitis C is negative. HIV is negative. She had a CT scan of her abdomen and pelvis describing no obvious liver disease, splenomegaly, pancreatic disease, nor GI tract pathology other than some constipation. There was no sign of any bowel obstruction. IMPRESSION: In regard to the patient's dysphagia, this seems consistent with a recurrence of her esophageal stricture as she describes a previous upper endoscopy with dilation about 10 years ago with good results from a symptomatic standpoint. Given her significant symptoms, I would recommend upper endoscopy later this week by either myself or Dr. Moore for repeat evaluation and dilation. Full consent was obtained from her for this, including risks of bleeding and perforation. Depending upon the endoscopic findings, she may need to be started back on a PPI. In regard to the constipation and CT scan findings, I would recommend the addition of MiraLax twice a day to her regimen. I do suspect the constipation is in relation to her methadone and perhaps other medications with their anticholinergic side effects. This has all been discussed in detail with the patient and she is comfortable with the plan. Thank you for the consultation. MD RICARDO Ling/DAGO / [phone]
[2024-04-03] MEDS: methADONE HCl 20 MG/2 ML ORAL.CONC 70 MG PO (08:29)
[2024-04-03] MEDS: metroNIDAZOLE 500 MG TABLET PO ×2 (08:30→21:00)
[2024-04-03] MEDS: LORazepam 0.5 MG TABLET PO ×3 (08:30→21:00)
[2024-04-03] MEDS: predniSONE 20 MG TABLET 40 MG PO (08:30)
[2024-04-03] MEDS: Docusate Sodium 100 MG CAPSULE PO ×3 (08:30→21:00)
[2024-04-03] MEDS: buPROPion HCl XL 150 MG TAB.ER.24H PO (08:30)
[2024-04-03] MEDS: Nicotine 21 MG PATCH.TD24 TRANSDERMA (08:31)
[2024-04-03] MEDS: OXcarbazepine 300 MG TABLET PO ×2 (08:31→21:00)
[2024-04-03] MEDS: Gabapentin 100 MG CAPSULE 200 MG PO (08:31)
--- NOTE | 2024-04-03 08:49 | MHC.SHP ---
Pre-Procedural Eval Section A - 24 Hr Update-Section A only Date of Service: 04/03/24 The patient is an INPATIENT: Yes The patient has been examined within 24 hours of the surgical procedure. The History & Physical has been completed within 30 days and I have reviewed it.: Yes Section B - Complete if H&P > 30 days Chief Complaint: depression Allergies: Allergies Allergy/AdvReac Type Severity Reaction Status Date / Time trazodone AdvReac Severe RLS Verified 03/23/24 22:25 Plan I have reviewed the history and physical and performed a pertinent physical examination on my patient. No changes have occurred unless specified. Time Spent With Patient Time: Total time managing care of this patient today ____ minutes.
[2024-04-03] MEDS: polyethylene glycoL 3350 17 GM POWD.PACK PO ×2 (09:01→21:01)
--- NOTE | 2024-04-03 10:11 | P.PNPSI_ITS ---
Subjective Subjective Date of Service: 04/03/24 Reason For Visit: depression Interim History: Met with patient; discussed with team Patient continues complain of abdominal pain; however when observed unaware by numerous staff patient sitting and talking comfortably throughout the day. Does not want to go to a program but wants to proceed with discharge. Wants to cross titrate and get onto Suboxone instead of methadone. Patient aware that she will have to do a portion of this on her own post discharge to which she understands and agrees Mental Status Exam Mental Status Exam Narrative: Pt is alert and oriented; behavior is cooperative, more calm, intermittently irritable; patient is not in distress; casual attire and adequate hygiene; mood is described as okay and affect congruent, overall more calm, brighter; eye contact appropriate; Speech is normal rate, volume and prosody and not pressured; no psychomotor agitation/retardation present; thought process is organized and goal directed; Thought content is on dealing with trauma history, detox, tx; otherwise pertinent to relevant topics and without any delusional content, paranoid ideations or grandiosity; no SI; no HI. No AVH. Patients insight and judgment fair Diagnostics Vital Signs (24Hr): Vital Signs - 24 hr 04/02/24 20:00 04/02/24 20:03 Temperature 98.3 F Pulse Rate 76 Respiratory Rate 16 Blood Pressure 149/92 H 145/93 H Pulse Oximetry 97 Oxygen Delivery Method Room Air Labs 04/02/24 07:45 Labs: Laboratory Results - last 48 hr 04/02/24 07:45 Sodium 138 Potassium 4.7 D Chloride 102 Carbon Dioxide 30 H Anion Gap 11 L BUN 14 Creatinine 0.70 Estim Creat Clear Calc TNP Estimated GFR > 60 Fasting Glucose 108 H Calcium 9.0 Total Bilirubin 0.1 AST 87 H ALT 97 H Alkaline Phosphatase 77 Total Protein 5.6 L Albumin 3.4 L Triglycerides 123 Cholesterol 125 LDL Cholesterol, Calc 68 HDL Cholesterol 33 L Medications Medications Current Medications Acetaminophen (Acetaminophen 325 Mg Tablet) 650 mg PO Q6H PRN PRN Reason: Headache/Pain Mild Scale (1-3) Last Admin: 04/03/24 03:21 Dose: 650 mg Al Hydroxide/Mg Hydroxide (Magnesium Hydrox/Alum Hydrox 30 Ml Oral.Susp) 30 ml PO Q6H PRN PRN Reason: Heartburn/Nausea Bupropion HCl (Bupropion Hcl Xl 150 Mg Tab.Er.24h) 150 mg PO DAILY [facility] Last Admin: 04/03/24 08:30 Dose: 150 mg Clonidine HCl (Clonidine Hcl 0.1 Mg Tablet) 0.1 mg PO BEDTIME [facility]; Protocol Last Admin: 04/02/24 20:03 Dose: 0.1 mg Clonidine HCl (Clonidine Hcl 0.1 Mg Tablet) 0.1 mg PO TID PRN; Protocol PRN Reason: anxiety Docusate Sodium (Docusate Sodium 100 Mg Capsule) 100 mg PO TID [facility] Last Admin: 04/03/24 08:30 Dose: 100 mg Gabapentin (Gabapentin 100 Mg Capsule) 200 mg PO TID [facility] Last Admin: 04/03/24 08:31 Dose: 200 mg Hydrocortisone (Hydrocortisone 1 % Cream 28.35 Gm Tube) 1 appl TOPICAL BID [facility]; Protocol Last Admin: 04/03/24 08:31 Dose: Not Given Hydroxyzine HCl (Hydroxyzine Hcl 50 Mg Tablet) 50 mg PO Q6H PRN PRN Reason: Anxiety, insomnia Ibuprofen (Ibuprofen 600 Mg Tablet) 600 mg PO Q6H PRN PRN Reason: Pain, Severe (Pain Scale 7-10) Last Admin: 04/03/24 03:21 Dose: 600 mg Lidocaine (Lidocaine 4 % Patch Adh..Patch) 1 patch TRANSDERMA DAILY [facility]; Protocol Last Admin: 04/03/24 08:32 Dose: Not Given Lorazepam (Lorazepam 0.5 Mg Tablet) 0.5 mg PO TID [facility] Last Admin: 04/03/24 08:30 Dose: 0.5 mg Magnesium Hydroxide (Milk Of Magnesia 30 Ml Oral.Susp) 30 ml PO DAILY PRN PRN Reason: Constipation Methadone HCl (Methadone Hcl 20 Mg/2 Ml Oral.Conc) 70 mg PO DAILY [facility] Last Admin: 04/03/24 08:29 Dose: 70 mg Metronidazole (Metronidazole 500 Mg Tablet) 500 mg PO BID [facility] Last Admin: 04/03/24 08:30 Dose: 500 mg Mineral Oil (Mineral Oil Enema 133 Ml Enema) 133 ml [place] DAILY PRN PRN Reason: severe constipation Nicotine (Nicotine 21 Mg Patch.Td24) 21 mg TRANSDERMA DAILY [facility] Last Admin: 04/03/24 08:31 Dose: 21 mg Nicotine Polacrilex (Nicotine Polacrilex 2 Mg Gum) 4 mg BUCCAL Q2H PRN PRN Reason: Nicotine Cravings Last Admin: 04/03/24 08:59 Dose: 4 mg Oxcarbazepine (Oxcarbazepine 300 Mg Tablet) 300 mg PO BID [facility] Last Admin: 04/03/24 08:31 Dose: 300 mg Polyethylene Glycol (Polyethylene Glycol 3350 17 Gm Powd.Pack) 17 gm PO BID [facility] Last Admin: 04/03/24 09:01 Dose: 17 gm Prednisone (Prednisone 20 Mg Tablet) 40 mg PO DAILY [facility]; Taper Stop: 04/09/24 08:59 Last Admin: 04/03/24 08:30 Dose: 40 mg Quetiapine Fumarate (Quetiapine Fumarate 300 Mg Tablet) 300 mg PO BEDTIME [facility] Last Admin: 04/02/24 20:02 Dose: 300 mg Senna (Senna [place] Extract Oral Syrup 15 Ml Syrup) 15 ml PO BEDTIME [facility] Last Admin: 04/02/24 20:01 Dose: 15 ml Allergies Allergies Allergy/AdvReac Type Severity Reaction Status Date / Time trazodone AdvReac Severe RLS Verified 03/23/24 22:25 Assessment & Plan Assessment & Plan (1) MDD (major depressive disorder), recurrent severe, without psychosis: Status: Acute Code(s): F33.2 - Major depressive disorder, recurrent severe without psychotic features (2) PTSD (post-traumatic stress disorder): Status: Acute Code(s): F43.10 - Post-traumatic stress disorder, unspecified (3) Opioid use disorder: Status: Acute Code(s): F11.90 - Opioid use, unspecified, uncomplicated (4) Cocaine use disorder: Status: Acute Code(s): F14.10 - Cocaine abuse, uncomplicated (5) Alcohol use disorder: Status: Acute Code(s): F10.90 - Alcohol use, unspecified, uncomplicated Plan Overall well-maintained medication regimen prior to medical floor transfer yesterday. Will have Ativan as needed in addition to scheduled Ativan, given significant anxiety associated with recent events. Regarding physical concerns, complaining of: abdominal pain and discomfort- There is a lump and lower left quadrant approximately 6 or 7 cm in width, some tenderness and maybe reducible. This has been present for around 4-5 weeks with some protrusion now for around 4 days. Will request surgery consult for same. hand and back discomfort- Requesting wheelchair will request physical therapy evaluation for patient's mobility needs and best way to support same, Some difficulty with swallowing- has had this in the past and required esophageal dilation, which was many years ago i.e. in her 20s. Feels this may be starting again I can feel it building up sometimes , but is able to eat full meals, which auto service writer witnessed without obvious difficulty and drink fluids.. Will request GI consult regarding same. Patient is aware that consult will be placed as routine and therefore unlikely to be seen over the weekend, but feels positive and supported by this plan. Also of note, as per medicine: noted to be positive for Trichomonas, bacterial vaginosis, Fouzia. Received Diflucan 150 mg once and can repeat in 2 days. Should also have Flagyl 500 mg b.i.d. for 1 week. 04/02/24: Ref anxiety- will change ativan to 1mg three times daily. Pt understanding this will be tapared off by primary team and start wellbutrin- both consistent with teams admission plan. Clonidine prn available. Hydrocortisone cream for red area on lower back and monitor. Back pain x rays + hospitalist consult - pt requested same. 04/03 continue treatment plan; Suboxone titration; patient would like discharge See GI recs/plan below CT/CT lumbar spine wo IV con (03/31/24 ) IMPRESSION: Disc bulge and facet arthropathy with [id number] central canal stenosis at the L4-L5 level. Shallow, broad-based left paracentral to left subarticular zone disc protrusion at the L5-S1 level impressing upon the left S1 nerve root. Couple of nonobstructing subcentimeter calculi in the right kidney. Methadone to Suboxone using Micro Suboxone titration Day 1 suboxone 0.5mg (plus methadone dose) (0.25 of a 2/0.5 film) Day 2 suboxone 0.5mg bid (plus methadone dose) (0.25 of a 2/0.5 film) Day 3 suboxone 1mg Bid (plus methadone dose) (0.5 of a 2/0.5 film) Day 4 suboxone 2mg Bid (plus methadone dose) Day 5 suboxone 4mg Bid (plus methadone dose) Day 6 suboxone 4mg bid (plus methadone dose) Day 7 suboxone 8mg and 4mg (LAST methadone dose) Day 8 suboxone 8mg Bid (NO METHADONE ) Dr. Sujata FERRERA 04/02 1.??? Dysphagia. She describes a previous EGD with dilation for an esophageal stricture about 10 years ago. Her increasing symptoms over the past month seem c/w a recurrent stricture. Denies any GERD symptoms at this time. I have recommended an upper endoscopy with dilation for Wednesday, 04/04, or Wednesday, 04/05, this week with me or Dr. Moore. My office will schedule and I will then place the orders. Full consent has been obtained from her for this, including risks of bleeding and perforation. She may need to be started on a PPI depending upon the endoscopic findings. 2. Constipation. Chronic and probably due to her meds including Methadone. Will add Miralax BID to her current regimen. 04/03 IMPRESSION: In regard to the patient's dysphagia, this seems consistent with a recurrence of her esophageal stricture as she describes a previous upper endoscopy with dilation about 10 years ago with good results from a symptomatic standpoint. Given her significant symptoms, I would recommend upper endoscopy later this week by either myself or Dr. Moore for repeat evaluation and dilation. Full consent was obtained from her for this, including risks of bleeding and perforation. Depending upon the endoscopic findings, she may need to be started back on a PPI. In regard to the constipation and CT scan findings, I would recommend the addition of MiraLax twice a day to her regimen. I do suspect the constipation is in relation to her methadone and perhaps other medications with their anticholinergic side effects. Dr. Allen, surgical consult 04/[address] scan reviewed and on physical exam i think this is a relatively superficial hematoma involving some trauma to the epigastric vessels. It does not seem to be a hernia no bowel issues Would treat conservatively with warm compresses for pain control. she is not anticoagulated. Dr. Hughes 04/01 hospital course: Patient was observed after methadone overdose complicated by acute toxic encephalopathy. She did receive 2 doses of intranasal Narcan, had some withdrawal symptoms but by next morning had completely resolved. She did not have any issues with QT prolongation. She has been restarted on methadone 70 mg daily. For low back pain CT scan showed nerve root impingement L5-S1. Can continue with conservative management. For abdominal pain this is likely due to constipation. CT scan was negative except for stool burden. She continue with bowel regimen. Also noted to be positive for Trichomonas, bacterial vaginosis, Fouzia. Will be given Diflucan 150 mg once and can repeat in 2 days. Should also have Flagyl 500 mg b.i.d. for 1 week. Patient will be transferred back to Patient educated on: diagnosis, medication risk/benefits, therapeutic strategies and medical condition Informed Consent: understands Reason for continued inpatient stay Substantial Risk for: stable for discharge Time Spent With Patient Time: Total time managing care of this patient today ____ minutes.
[2024-04-03] MEDS: Fluconazole 150 MG TABLET PO (11:08)
[2024-04-03] MEDS: cloNIDine HCL 0.1 MG TABLET PO ×4 (11:11→21:22)
[2024-04-03] MEDS: Cyclobenzaprine HCl 10 MG TABLET PO ×2 (11:12→21:10)
[2024-04-03] MEDS: Buprenorphine/Naloxone 2/0.5mg FILM 0.25 FILM SUBLINGUAL (13:29)
[2024-04-03] MEDS: Gabapentin 300 MG CAPSULE PO (16:40)
[2024-04-03] MEDS: Omeprazole 40 MG CAPSULE.DR PO (17:56)
--- NOTE | 2024-04-03 20:23 | PC.NURSE ---
pt signed a 3 day notice on wednesday04/03/24. up on 04/06/24.
[2024-04-03] MEDS: methADONE HCl 20 MG/2 ML ORAL.CONC 5 MG PO (20:59)
[2024-04-03] MEDS: Gabapentin 400 MG CAPSULE PO (21:00)
[2024-04-03] MEDS: QUEtiapine Fumarate 300 MG TABLET PO (21:00)
[2024-04-03] MEDS: Ibuprofen 800 MG TABLET PO (21:11)
[2024-04-03] MEDS: Hydrocortisone 1 % Cream 28.35 GM TUBE 1 APPL TOPICAL (21:12)
[2024-04-03 22:30] LABS: Influenza A PCR NEGATIVE (Negative); Influenza B PCR NEGATIVE (Negative); Resp Syncy Virus RNA Qual PCR NEGATIVE (Negative); SARS COV2 PCR INHOUSE NEGATIVE (Negative)
[2024-04-04] MEDS: Omeprazole 40 MG CAPSULE.DR PO (07:00)
[2024-04-04 08:00] VITALS: BP 127/81; PULSE 72; RESP 18; TEMP 36.6; O2SAT 99
[2024-04-04] MEDS: Nicotine 21 MG PATCH.TD24 TRANSDERMA (08:38)
[2024-04-04] MEDS: methADONE HCl 20 MG/2 ML ORAL.CONC 70 MG PO (08:39)
[2024-04-04] MEDS: polyethylene glycoL 3350 17 GM POWD.PACK PO ×2 (08:39→19:53)
[2024-04-04 08:41] VITALS: BP 127/81
[2024-04-04] MEDS: Gabapentin 400 MG CAPSULE PO ×3 (08:41→19:53)
[2024-04-04] MEDS: Docusate Sodium 100 MG CAPSULE PO ×3 (08:41→19:53)
[2024-04-04] MEDS: predniSONE 20 MG TABLET 40 MG PO (08:41)
[2024-04-04] MEDS: buPROPion HCl XL 150 MG TAB.ER.24H PO (08:41)
[2024-04-04] MEDS: metroNIDAZOLE 500 MG TABLET PO ×2 (08:41→19:54)
[2024-04-04] MEDS: cloNIDine HCL 0.1 MG TABLET PO ×4 (08:41→19:53)
[2024-04-04] MEDS: OXcarbazepine 300 MG TABLET PO ×3 (08:42→19:53)
[2024-04-04] MEDS: LORazepam 0.5 MG TABLET PO ×2 (08:42→13:43)
[2024-04-04] MEDS: Acetaminophen 325 MG TABLET 650 MG PO ×3 (09:33→19:56)
[2024-04-04] MEDS: Ibuprofen 800 MG TABLET PO ×2 (09:34→17:05)
[2024-04-04] MEDS: Cyclobenzaprine HCl 10 MG TABLET PO ×3 (09:34→19:53)
[2024-04-04] MEDS: Nicotine Polacrilex 2 MG GUM 4 MG BUCCAL ×2 (09:35→19:57)
[2024-04-04] MEDS: Buprenorphine/Naloxone 2/0.5mg FILM 0.25 FILM SUBLINGUAL ×2 (12:03→19:56)
[2024-04-04] MEDS: DULoxetine HCl 20 MG CAPSULE.DR PO (12:03)
[2024-04-04 13:14] VITALS: BP 160/89
[2024-04-04] MEDS: Gabapentin 300 MG CAPSULE PO (14:06)
[2024-04-04 17:05] VITALS: BP 156/88
[2024-04-04] MEDS: hydrOXYzine HCL 50 MG TABLET PO (17:07)
--- NOTE | 2024-04-04 18:53 | P.PNPSI_ITS ---
Subjective Subjective Date of Service: 04/04/24 Reason For Visit: depression Interim History: Met with patient; discussed with team Patient has 3 day order in; does not want TSS but move work out sobriety on her own. Saul crespo Medical Esthetician reviewed surgical assessment, GI assessment with patient including: CT scan reviewed and on physical exam i think this is a relatively superficial hematoma involving some trauma to the epigastric vessels. It does not seem to be a hernia no bowel issues Would treat conservatively with warm compresses for pain control. she is not anticoagulated. Mental Status Exam Mental Status Exam Narrative: Pt is alert and oriented; behavior is cooperative, more calm, intermittently irritable; patient is not in distress; casual attire and adequate hygiene; mood is described as okay and affect congruent, overall more calm, brighter; eye contact appropriate; Speech is normal rate, volume and prosody and not pressured; no psychomotor agitation/retardation present; thought process is organized and goal directed; Thought content is on dealing with trauma history, detox, tx; otherwise pertinent to relevant topics and without any delusional content, paranoid ideations or grandiosity; no SI; no HI. No AVH. Patients insight and judgment fair Diagnostics Vital Signs (24Hr): Vital Signs - 24 hr 04/03/24 20:00 04/03/24 20:57 04/03/24 21:22 Temperature 99.1 F 98.0 F Pulse Rate 89 86 Respiratory Rate 16 20 Blood Pressure 176/90 H 186/91 H 176/92 H Pulse Oximetry 98 98 Oxygen Delivery Method Room Air Room Air 04/03/24 22:23 04/04/24 08:00 04/04/24 08:41 Temperature 98.8 F 97.9 F Pulse Rate 84 72 Respiratory Rate 18 Blood Pressure 134/86 127/81 127/81 Pulse Oximetry 97 99 Oxygen Delivery Method Room Air 04/04/24 13:14 04/04/24 17:05 Temperature Pulse Rate Respiratory Rate Blood Pressure 160/89 H 156/88 H Pulse Oximetry Oxygen Delivery Method Labs 04/02/24 07:45 Labs: Laboratory Results - last 48 hr 04/02/24 21:35 Influenza Type A (PCR) NEGATIVE Influenza Type B (PCR) NEGATIVE RSV RNA Qual (PCR) NEGATIVE SARS-CoV-2 RNA (RT-PCR) NEGATIVE Medications Medications Current Medications Acetaminophen (Acetaminophen 325 Mg Tablet) 650 mg PO Q6H PRN PRN Reason: Headache/Pain Mild Scale (1-3) Last Admin: 04/04/24 14:06 Dose: 650 mg Al Hydroxide/Mg Hydroxide (Magnesium Hydrox/Alum Hydrox 30 Ml Oral.Susp) 30 ml PO Q6H PRN PRN Reason: Heartburn/Nausea Buprenorphine/Naloxone (Buprenorphine/Naloxone 2/0.5mg Film) 0.25 film SUBLINGUAL BID KAIT Last Admin: 04/04/24 12:03 Dose: 0.25 film Bupropion HCl (Bupropion Hcl Xl 150 Mg Tab.Er.24h) 150 mg PO DAILY [facility] Last Admin: 04/04/24 08:41 Dose: 150 mg Clonidine HCl (Clonidine Hcl 0.1 Mg Tablet) 0.1 mg PO QID [facility]; Protocol Last Admin: 04/04/24 17:05 Dose: 0.1 mg Cyclobenzaprine HCl (Cyclobenzaprine Hcl 10 Mg Tablet) 10 mg PO QID PRN PRN Reason: muscle spams Last Admin: 04/04/24 13:41 Dose: 10 mg Docusate Sodium (Docusate Sodium 100 Mg Capsule) 100 mg PO TID [facility] Last Admin: 04/04/24 14:07 Dose: 100 mg Duloxetine HCl (Duloxetine Hcl 20 Mg Capsule.Dr) 20 mg PO DAILY [facility] Gabapentin (Gabapentin 300 Mg Capsule) 300 mg PO DAILY PRN PRN Reason: breakthrough lower back pain Last Admin: 04/04/24 14:06 Dose: 300 mg Gabapentin (Gabapentin 400 Mg Capsule) 400 mg PO TID [facility] Last Admin: 04/04/24 13:41 Dose: 400 mg Hydrocortisone (Hydrocortisone 1 % Cream 28.35 Gm Tube) 1 appl TOPICAL BID [facility]; Protocol Last Admin: 04/04/24 08:53 Dose: Not Given Hydroxyzine HCl (Hydroxyzine Hcl 50 Mg Tablet) 50 mg PO Q6H PRN PRN Reason: Anxiety, insomnia Last Admin: 04/04/24 17:07 Dose: 50 mg Ibuprofen (Ibuprofen 800 Mg Tablet) 800 mg PO Q6H PRN PRN Reason: Pain, Moderate(Pain Scale 4-6) Last Admin: 04/04/24 17:05 Dose: 800 mg Lidocaine (Lidocaine 4 % Patch Adh..Patch) 1 patch TRANSDERMA DAILY [facility]; Protocol Last Admin: 04/04/24 08:54 Dose: Not Given Lorazepam (Lorazepam 0.5 Mg Tablet) 0.5 mg PO BID PRN PRN Reason: moderate anxiety Magnesium Hydroxide (Milk Of Magnesia 30 Ml Oral.Susp) 30 ml PO DAILY PRN PRN Reason: Constipation Methadone HCl (Methadone Hcl 20 Mg/2 Ml Oral.Conc) 70 mg PO DAILY [facility] Last Admin: 04/04/24 08:39 Dose: 70 mg Methadone HCl (Methadone Hcl 20 Mg/2 Ml Oral.Conc) 5 mg PO BID PRN PRN Reason: Pain, Severe (Pain Scale 7-10) Last Admin: 04/03/24 20:59 Dose: 5 mg Metronidazole (Metronidazole 500 Mg Tablet) 500 mg PO BID [facility] Last Admin: 04/04/24 08:41 Dose: 500 mg Mineral Oil (Mineral Oil Enema 133 Ml Enema) 133 ml [place] DAILY PRN PRN Reason: severe constipation Nicotine (Nicotine 21 Mg Patch.Td24) 21 mg TRANSDERMA DAILY [facility] Last Admin: 04/04/24 08:38 Dose: 21 mg Nicotine Polacrilex (Nicotine Polacrilex 2 Mg Gum) 4 mg BUCCAL Q2H PRN PRN Reason: Nicotine Cravings Last Admin: 04/04/24 09:35 Dose: 4 mg Omeprazole (Omeprazole 40 Mg Capsule.Dr) 40 mg PO DAILY@0630 [facility] Last Admin: 04/04/24 07:00 Dose: 40 mg Oxcarbazepine (Oxcarbazepine 300 Mg Tablet) 300 mg PO TID [facility] Last Admin: 04/04/24 13:41 Dose: 300 mg Polyethylene Glycol (Polyethylene Glycol 3350 17 Gm Powd.Pack) 17 gm PO BID [facility] Last Admin: 04/04/24 08:39 Dose: 17 gm Prednisone (Prednisone 20 Mg Tablet) 40 mg PO DAILY [facility]; Taper Stop: 04/09/24 08:59 Last Admin: 04/04/24 08:41 Dose: 40 mg Quetiapine Fumarate (Quetiapine Fumarate 300 Mg Tablet) 300 mg PO BEDTIME [facility] Last Admin: 04/03/24 21:00 Dose: 300 mg Senna (Senna Irrigon Extract Oral Syrup 15 Ml Syrup) 15 ml PO BEDTIME [facility] Last Admin: 04/03/24 21:01 Dose: 15 ml Allergies Allergies Allergy/AdvReac Type Severity Reaction Status Date / Time trazodone AdvReac Severe RLS Verified 03/23/24 22:25 Assessment & Plan Assessment & Plan (1) MDD (major depressive disorder), recurrent severe, without psychosis: Status: Acute Code(s): F33.2 - Major depressive disorder, recurrent severe without psychotic features (2) PTSD (post-traumatic stress disorder): Status: Acute Code(s): F43.10 - Post-traumatic stress disorder, unspecified (3) Opioid use disorder: Status: Acute Code(s): F11.90 - Opioid use, unspecified, uncomplicated (4) Cocaine use disorder: Status: Acute Code(s): F14.10 - Cocaine abuse, uncomplicated (5) Alcohol use disorder: Status: Acute Code(s): F10.90 - Alcohol use, unspecified, uncomplicated Plan HPI: Patient is a 43-year-old female with history of depression, anxiety, cocaine, opiate, alcohol use disorder/dependence, on methadone, who self presents for worsening depression and SI in the face of homelessness and being off medications. Patient reports that she and her are /; about 4 months ago she moved out, became homeless and stopped taking her medications and became further embroiled in polysubstance abuse. Patient reports that her depression has been mounting over the past months and this past she felt suicidal, though no plan mentioned, and self presented for treatment. Patient is detoxing from alcohol, uncomfortable, tearful and wanting to keep interview short. She says she used to be on Wellbutrin, Seroquel 300 mg q.h.s., clonidine p.r.n. all of which she found helpful would like to get back on it. She also says she used to be on Xanax 2 mg t.i.d. which was what really helped her anxiety. Patient reports both auditory and visual hallucinations, seeing people in the room, hearing birds, hearing people talking which she says knows is not real and says only happens when she is detoxing from alcohol. Patient reports history of hypothyroid though reviewed labs with pt and TSH/free T3 WNL. Formulation/clinical reasoning: -Patient has long history of severe polysubstance abuse and is currently withdrawing from alcohol with symptoms of alcoholic hallucinosis, with both auditory and visual hallucinations which she knows are hallucinations. -Chronic anxiety and depression, off meds for 4 months -Patient is not scoring very high on CIWA but complaining of problematic withdrawal symptoms; patient just restarted on methadone which might be subduing some of her symptoms -Given the longevity and severity of alcohol abuse/dependence, will schedule both gabapentin and Ativan for now and then taper them off; will continue for breakthrough symptoms; -once detox more underway will restart Wellbutrin. Other Then for detox will avoid benzos for treatment Hospital course: 03/25: continue current management and treatment plan. Asked medicine to see for evaluation of possible cellulitis. 03/26: Lower GBP to 200 mg TID. DC Ativan 2 mg. Lower standing Ativan to 0.5 mg TID. Consider further taper of sedating medications. - Hospitalist PA Upon physical examination there is an approximately 3 cm erythematous and warm oval-shape lesion on left upper buttock. Possibly some mild swelling, but no appreciable induration or fluctuance. Currently little concern for abscess. Skin intact with no noticeable abrasions. Will treat with doxycycline 100 mg b.i.d. x5 days. 03/27 pt tearful, depressed, anxious. She agrees that her own anxiety is mixed with w/drawal symptoms; says ptsd is the worst, with frequent intrusive memories. Discussed history: no hx of cuong/manic episodes; hx of AH only in context of intoxication or withdrawal. Patient feels also withdrawing from opiates, ask if methadone can be increased, in past stable on 150 mg med trials include: Prozac: Not very helpful and sexual side effects Zoloft: Not helpful (though not sure if therapeutic dose/duration). Patient has otherwise dependent on benzodiazepines to deal with anxiety. Discussed medication management for depression anxiety including how benzodiazepines are not sustainable approach given her struggles with substance abuse and PTSD. She agrees to try Trileptal after typewriter operator automatic reviewed risks/side effects, see if that can help with anxiety. -regarding detox, typewriter operator automatic maintains that longevity and severity of alcohol abuse, combined with opiate withdrawal makes detox complicated; although patient does indeed appear sedated, typically goal for detox of alcohol is sleepy but arousable. Will continue with CIWA; Ativan scheduled was lowered to 0.5 t.i.d., but will increase to q.i.d. for now; will leave gabapentin 200 mg t.i.d. for now as well. Over the next several days will detox. Patient very much wants a program to help with getting sober. -She is engaged in treatment. -patient has been on Wellbutrin in the past; will consider restarting this however Lexapro might be beneficial per PTSD 03/28 Patient reports that anxiety is a little better with Trileptal and agrees to increase it further. She says she still struggling with depression and feels ready to restart Wellbutrin. Patient shared that she is getting along well with peers in the milieu and is enjoying interacting with them. Patient was upset that a male staff entered her room for checks because she was changing; patient discussed with nursing and matter considered accidental. Patient reports low back pain and wonders if it is due to induration on buttocks Medical Esthetician inspected buttocks with nurse present; erythematous area present but does not appear to be cellulitis. Patient already on antibiotics. Ordered lidocaine patch. -will increase Trileptal and restart Wellbutrin which she is done well on in the past; also will increase methadone at her request for cravings and withdrawal symptoms; will likely be able to DC CIWA soon 03/29 Anxious and depressed. Not sure that the Wellbutrin has made much difference yet but will continue to take it. Patient remains quite sedated throughout the day, nodding off in the middle of conversation. She does not know why. Patient remains sensitive struggling to not take interactions personally. Complains of lower back pain. With female nurse present, typewriter operator automatic examined lower back and patient had tenderness on palpation in the sacral vertebra. Reports history of IV cocaine/heroin use however says it is quite some time, though is vague on the timeline. -patient retracted 3 day notice; very much wants to go to a program to pursue sobriety -will order CBC, CMP, ammonia, ESR, CRP; will also get plain film x-ray on lumbar spine. Low suspicion for osteomyelitis but looking to rule out 03/30 labs reviewed and grossly WNL except for mild increasing ESR Patient complaining of increased lower back pain; discussed with hospitalist CLAYTON and lumbar an abdominal CT scan ordered; low suspicion for osteomyelitis given labs and vitals and hospitalist CLAYTON felt that CT could be obtained on the following day. LFTs moderately increased with a continued slight increasing; while this could very possibly be methadone, Hep B/C profile obtained given history of IV drug use; HIV lab ordered. Discussed these things with patient agrees with plan. Patient also asked why methadone was not further increased and accepted that current dose seems adequate for now given daytime sedation which she agreed; of note patient is more alert. morning, Medical Esthetician informed that patient was accidentally given an extra 60 mg of methadone on top of her scheduled 70 mg. Patient was informed. Medical Esthetician discussed with nursing who reported that patient remained at baseline, sitting in the kitchen eating, vitals WNL including RR which was 16. Medical Esthetician placed patient on immediate one-to-one with specific instructions to alert nursing to any change in status and increased vitals to Q 1 hour; discussed increasing frequency of vitals further however since patient was alert and oriented, at baseline (in kitchen eating) on a one-to-one and since methadone effects peak about 3-4 hours post administration, decided that Q 1 hour was sufficient for time being. Also discontinued other potentially sedating medications including gabapentin and Ativan. Medical Esthetician discussed this with addiction consult Suki Abdi who agreed with this plan. Medical Esthetician and nurse remained in communication and patient's vitals remained stable. EKG ordered. Patient has been nodding on and off throughout her entire admission and could be easily aroused just by saying her name; although this same pattern continued, during moments when she would not off, patient's RR started to decrease and O2 sat dropped and Rapid response called; patient given Narcan x2. She was transferred to the medical floor for monitoring. Pt medically stabilized and transferred back to psychiatric floor Overall well-maintained medication regimen prior to medical floor transfer yesterday. Will have Ativan as needed in addition to scheduled Ativan, given significant anxiety associated with recent events. Regarding physical concerns, complaining of: abdominal pain and discomfort- There is a lump and lower left quadrant approximately 6 or 7 cm in width, some tenderness and maybe reducible. This has been present for around 4-5 weeks with some protrusion now for around 4 days. Will request surgery consult for same. hand and back discomfort- Requesting wheelchair will request physical therapy evaluation for patient's mobility needs and best way to support same, Some difficulty with swallowing- has had this in the past and required esophageal dilation, which was many years ago i.e. in her 20s. Feels this may be starting again I can feel it building up sometimes , but is able to eat full meals, which typewriter operator automatic witnessed without obvious difficulty and drink fluids.. Will request GI consult regarding same. Patient is aware that consult will be placed as routine and therefore unlikely to be seen over the weekend, but feels positive and supported by this plan. Also of note, as per medicine: noted to be positive for Trichomonas, bacterial vaginosis, Fouzia. Received Diflucan 150 mg once and can repeat in 2 days. Should also have Flagyl 500 mg b.i.d. for 1 week. 04/02/24: Ref anxiety- will change ativan to 1mg three times daily. Pt understanding this will be tapared off by primary team and start wellbutrin- both consistent with teams admission plan. Clonidine prn available. Hydrocortisone cream for red area on lower back and monitor. Back pain x rays + hospitalist consult - pt requested same. 04/03 GI intervention: EGD with Balloon dilation of EG Junction- continue treatment plan; Suboxone titration; patient would like discharge See GI recs/plan below Plan: 3 day Q 15 minute checks DC CIWA and continue with Ativan taper Taper off Ativan Gabapentin increased; will continue Continue Wellbutrin XL 150 in the morning; patient has been on before and says helpful depression Continue to Trileptal 300mg BID for anxiety Continue methadone to 60 mg in the morning for continued cravings; patient said she is to be on 150 mg Seroquel 300 mg q.h.s.; patient says she used to take this and it helps Clonidine p.r.n. Patient reports history of hypothyroid; reviewed labs and currently TSH/free T3 WNL. Methadone to Suboxone using Micro Suboxone titration 04/03 Day 1 suboxone 0.5mg (plus methadone dose) (0.25 of a 2/0.5 film) 04/04 Day 2 suboxone 0.5mg bid (plus methadone dose) (0.25 of a 2/0.5 film) 04/05 Day 3 suboxone 1mg Bid (plus methadone dose) (0.5 of a 2/0.5 film) 04/06 Day 4 suboxone 2mg Bid (plus methadone dose) 04/07 Day 5 suboxone 4mg Bid (plus methadone dose) 04/08 Day 6 suboxone 4mg bid (plus methadone dose) 04/09 Day 7 suboxone 8mg and 4mg (LAST methadone dose) 04/10 Day 8 suboxone 8mg Bid (NO METHADONE ) 03/31/24 CT/CT lumbar spine wo IV con IMPRESSION: Disc bulge and facet arthropathy with [id number] central canal stenosis at the L4-L5 level. Shallow, broad-based left paracentral to left subarticular zone disc protrusion at the L5-S1 level impressing upon the left S1 nerve root. Couple of nonobstructing subcentimeter calculi in the right kidney. Dr. Ernst GI 04/02 1.??? Dysphagia. She describes a previous EGD with dilation for an esophageal stricture about 10 years ago. Her increasing symptoms over the past month seem c/w a recurrent stricture. Denies any GERD symptoms at this time. I have recommended an upper endoscopy with dilation for Wednesday, 04/04, or Wednesday, 04/05, this week with me or Dr. Moore. My office will schedule and I will then place the orders. Full consent has been obtained from her for this, including risks of bleeding and perforation. She may need to be started on a PPI depending upon the endoscopic findings. 2. Constipation. Chronic and probably due to her meds including Methadone. Will add Miralax BID to her current regimen. 04/03 IMPRESSION: In regard to the patient's dysphagia, this seems consistent with a recurrence of her esophageal stricture as she describes a previous upper endoscopy with dilation about 10 years ago with good results from a symptomatic standpoint. Given her significant symptoms, I would recommend upper endoscopy later this week by either myself or Dr. Moore for repeat evaluation and dilation. Full consent was obtained from her for this, including risks of bleeding and perforation. Depending upon the endoscopic findings, she may need to be started back on a PPI. In regard to the constipation and CT scan findings, I would recommend the addition of MiraLax twice a day to her regimen. I do suspect the constipation is in relation to her methadone and perhaps other medications with their anticholinergic side effects. Dr. Allen, surgical consult 04/[address] scan reviewed and on physical exam i think this is a relatively superficial hematoma involving some trauma to the epigastric vessels. It does not seem to be a hernia no bowel issues Would treat conservatively with warm compresses for pain control. she is not anticoagulated. Dr. Hughes 04/01 hospital course: Patient was observed after methadone overdose complicated by acute toxic encephalopathy. She did receive 2 doses of intranasal Narcan, had some withdrawal symptoms but by next morning had completely resolved. She did not have any issues with QT prolongation. She has been restarted on methadone 70 mg daily. For low back pain CT scan showed nerve root impingement L5-S1. Can continue with conservative management. For abdominal pain this is likely due to constipation. CT scan was negative except for stool burden. She continue with bowel regimen. Also noted to be positive for Trichomonas, bacterial vaginosis, Fouzia. Will be given Diflucan 150 mg once and can repeat in 2 days. Should also have Flagyl 500 mg b.i.d. for 1 week. Patient will be transferred back to 3. Genitourinary infection: Continue antibiotics 4. Chronic Lower back pain secondary to: Disc bulge and facet arthropathy with [id number] central canal stenosis at the L4-L5 level. Shallow, broad-based left paracentral to left subarticular zone disc protrusion at the L5-S1 level impressing upon the left S1 nerve root. 5. GERD secondary to Hiatal hernia: continue Omeprazole; f/u with GI. 6. Chronic abdominal pain with CT showing relatively superficial hematoma involving some trauma to the epigastric vessels -conservative treatment CT scan reviewed and on physical exam i think this is a relatively superficial hematoma involving some trauma to the epigastric vessels. It does not seem to be a hernia no bowel issues Would treat conservatively with warm compresses for pain control. she is not anticoagulated. IMPRESSION: 1. Hiatal hernia, gastroesophageal reflux. 2. Status post balloon dilation of gastroesophageal junction. PLAN: The patient will start 40 mg omeprazole daily. I do suspect she has been having some reflux as a contributing factor to her dysphagia in relation to esophageal spasm. Hopefully, the combination of the balloon dilation and acid suppression with omeprazole will help to improve her swallowing. Her diet will be advanced. She should avoid all aspirin and NSAIDs long-term. She will be observed in regard to this eating and swallowing. Patient educated on: diagnosis, medication risk/benefits, substance abuse, therapeutic strategies and medical condition Informed Consent: understands and further education needed Reason for continued inpatient stay Substantial Risk for: stable for discharge Time Spent With Patient Time: Total time managing care of this patient today ____ minutes.
[2024-04-04] MEDS: Lidocaine 4 % Patch ADH..PATCH 1 PATCH TRANSDERMA (19:53)
[2024-04-04] MEDS: QUEtiapine Fumarate 300 MG TABLET PO (19:53)
[2024-04-04 20:00] VITALS: BP 148/82; PULSE 80; RESP 16; TEMP 36.9; O2SAT 98
[2024-04-05] MEDS: Omeprazole 40 MG CAPSULE.DR PO (06:20)
[2024-04-05] MEDS: Ibuprofen 800 MG TABLET PO ×3 (06:34→22:23)
[2024-04-05] MEDS: Gabapentin 300 MG CAPSULE PO (06:34)
[2024-04-05] MEDS: hydrOXYzine HCL 50 MG TABLET PO ×3 (06:34→22:23)
[2024-04-05] MEDS: LORazepam 0.5 MG TABLET PO ×2 (06:34→22:23)
[2024-04-05] MEDS: Cyclobenzaprine HCl 10 MG TABLET PO ×3 (06:34→18:33)
[2024-04-05] MEDS: Acetaminophen 325 MG TABLET 650 MG PO ×2 (06:35→17:13)
[2024-04-05 08:00] VITALS: BP 157/81; PULSE 76; RESP 16; TEMP 36.9; O2SAT 100
[2024-04-05] MEDS: Nicotine 21 MG PATCH.TD24 TRANSDERMA (08:11)
[2024-04-05 08:12] VITALS: BP 157/81
[2024-04-05] MEDS: DULoxetine HCl 20 MG CAPSULE.DR PO (08:12)
[2024-04-05] MEDS: Gabapentin 400 MG CAPSULE PO ×3 (08:12→22:00)
[2024-04-05] MEDS: cloNIDine HCL 0.1 MG TABLET PO ×4 (08:12→22:01)
[2024-04-05] MEDS: OXcarbazepine 300 MG TABLET PO ×3 (08:13→22:05)
[2024-04-05] MEDS: methADONE HCl 20 MG/2 ML ORAL.CONC 70 MG PO (08:13)
[2024-04-05] MEDS: predniSONE 20 MG TABLET 40 MG PO (08:13)
[2024-04-05] MEDS: buPROPion HCl XL 150 MG TAB.ER.24H PO (08:13)
[2024-04-05] MEDS: Docusate Sodium 100 MG CAPSULE PO ×3 (08:13→22:04)
[2024-04-05] MEDS: metroNIDAZOLE 500 MG TABLET PO ×2 (08:33→22:05)
[2024-04-05] MEDS: Buprenorphine/Naloxone 2/0.5mg FILM 0.25 FILM SUBLINGUAL (08:34)
[2024-04-05] MEDS: Nicotine Polacrilex 2 MG GUM 4 MG BUCCAL ×4 (10:01→22:23)
[2024-04-05] MEDS: Magnesium Hydrox/Alum Hydrox 30 ML ORAL.SUSP PO (10:01)
[2024-04-05] MEDS: Lidocaine 4 % Patch ADH..PATCH 1 PATCH TRANSDERMA (12:01)
[2024-04-05] MEDS: polyethylene glycoL 3350 17 GM POWD.PACK PO ×2 (12:01→22:00)
[2024-04-05 12:03] VITALS: BP 138/83
[2024-04-05 17:13] VITALS: BP 134/77
[2024-04-05 20:00] VITALS: BP 141/80; PULSE 78; RESP 16; TEMP 36.9; O2SAT 98
[2024-04-05] MEDS: Hydrocortisone 1 % Cream 28.35 GM TUBE 1 APPL TOPICAL (21:59)
[2024-04-05 22:01] VITALS: BP 141/80
[2024-04-05] MEDS: QUEtiapine Fumarate 300 MG TABLET PO (22:01)
--- NOTE | 2024-04-05 23:51 | P.PNPSI_ITS ---
Subjective Subjective Date of Service: 04/05/24 Reason For Visit: depression Interim History: Met with patient; discussed with team Same presentation. Patient wants discharge. Will proceed Mental Status Exam Mental Status Exam Narrative: Pt is alert and oriented; behavior is cooperative, more calm, intermittently irritable; patient is not in distress; casual attire and adequate hygiene; mood is described as okay and affect congruent, overall more calm, brighter; eye contact appropriate; Speech is normal rate, volume and prosody and not pressured; no psychomotor agitation/retardation present; thought process is organized and goal directed; Thought content is on dealing with trauma history, detox, tx; otherwise pertinent to relevant topics and without any delusional content, paranoid ideations or grandiosity; no SI; no HI. No AVH. Patients insight and judgment fair Diagnostics Vital Signs (24Hr): Vital Signs - 24 hr 04/05/24 08:00 04/05/24 08:12 04/05/24 12:03 Temperature 98.4 F Pulse Rate 76 Respiratory Rate 16 Blood Pressure 157/81 H 157/81 H 138/83 Pulse Oximetry 100 Oxygen Delivery Method Room Air 04/05/24 17:13 04/05/24 22:01 Temperature Pulse Rate Respiratory Rate Blood Pressure 134/77 141/80 H Pulse Oximetry Oxygen Delivery Method Labs 04/02/24 07:45 Medications Medications Current Medications Acetaminophen (Acetaminophen 325 Mg Tablet) 650 mg PO Q6H PRN PRN Reason: Headache/Pain Mild Scale (1-3) Last Admin: 04/05/24 17:13 Dose: 650 mg Al Hydroxide/Mg Hydroxide (Magnesium Hydrox/Alum Hydrox 30 Ml Oral.Susp) 30 ml PO Q6H PRN PRN Reason: Heartburn/Nausea Last Admin: 04/05/24 10:01 Dose: 30 ml Bupropion HCl (Bupropion Hcl Xl 150 Mg Tab.Er.24h) 150 mg PO DAILY [facility] Last Admin: 04/05/24 08:13 Dose: 150 mg Clonidine HCl (Clonidine Hcl 0.1 Mg Tablet) 0.1 mg PO QID [facility]; Protocol Last Admin: 04/05/24 22:01 Dose: 0.1 mg Cyclobenzaprine HCl (Cyclobenzaprine Hcl 10 Mg Tablet) 10 mg PO QID PRN PRN Reason: muscle spams Last Admin: 04/05/24 18:33 Dose: 10 mg Docusate Sodium (Docusate Sodium 100 Mg Capsule) 100 mg PO TID [facility] Last Admin: 04/05/24 22:04 Dose: 100 mg Duloxetine HCl (Duloxetine Hcl 20 Mg Capsule.Dr) 20 mg PO DAILY [facility] Last Admin: 04/05/24 08:12 Dose: 20 mg Gabapentin (Gabapentin 300 Mg Capsule) 300 mg PO DAILY PRN PRN Reason: breakthrough lower back pain Last Admin: 04/05/24 06:34 Dose: 300 mg Gabapentin (Gabapentin 400 Mg Capsule) 400 mg PO TID [facility] Last Admin: 04/05/24 22:00 Dose: 400 mg Hydrocortisone (Hydrocortisone 1 % Cream 28.35 Gm Tube) 1 appl TOPICAL BID [facility]; Protocol Last Admin: 04/05/24 21:59 Dose: 1 appl Hydroxyzine HCl (Hydroxyzine Hcl 50 Mg Tablet) 50 mg PO Q6H PRN PRN Reason: Anxiety, insomnia Last Admin: 04/05/24 22:23 Dose: 50 mg Ibuprofen (Ibuprofen 800 Mg Tablet) 800 mg PO Q6H PRN PRN Reason: Pain, Moderate(Pain Scale 4-6) Last Admin: 04/05/24 22:23 Dose: 800 mg Lidocaine (Lidocaine 4 % Patch Adh..Patch) 1 patch TRANSDERMA DAILY [facility]; Protocol Last Admin: 04/05/24 12:01 Dose: 1 patch Lorazepam (Lorazepam 0.5 Mg Tablet) 0.5 mg PO DAILY PRN PRN Reason: moderate anxiety Last Admin: 04/05/24 22:23 Dose: 0.5 mg Magnesium Hydroxide (Milk Of Magnesia 30 Ml Oral.Susp) 30 ml PO DAILY PRN PRN Reason: Constipation Methadone HCl (Methadone Hcl 20 Mg/2 Ml Oral.Conc) 70 mg PO DAILY [facility] Last Admin: 04/05/24 08:13 Dose: 70 mg Methadone HCl (Methadone Hcl 20 Mg/2 Ml Oral.Conc) 5 mg PO BID PRN PRN Reason: Pain, Severe (Pain Scale 7-10) Last Admin: 04/03/24 20:59 Dose: 5 mg Metronidazole (Metronidazole 500 Mg Tablet) 500 mg PO BID [facility] Last Admin: 04/05/24 22:05 Dose: 500 mg Mineral Oil (Mineral Oil Enema 133 Ml Enema) 133 ml SD DAILY PRN PRN Reason: severe constipation Nicotine (Nicotine 21 Mg Patch.Td24) 21 mg TRANSDERMA DAILY [facility] Last Admin: 04/05/24 08:11 Dose: 21 mg Nicotine Polacrilex (Nicotine Polacrilex 2 Mg Gum) 4 mg BUCCAL Q2H PRN PRN Reason: Nicotine Cravings Last Admin: 04/05/24 22:23 Dose: 4 mg Omeprazole (Omeprazole 40 Mg Capsule.Dr) 40 mg PO DAILY@0630 [facility] Last Admin: 04/05/24 06:20 Dose: 40 mg Oxcarbazepine (Oxcarbazepine 300 Mg Tablet) 300 mg PO TID [facility] Last Admin: 04/05/24 22:05 Dose: 300 mg Polyethylene Glycol (Polyethylene Glycol 3350 17 Gm Powd.Pack) 17 gm PO BID [facility] Last Admin: 04/05/24 22:00 Dose: 17 gm Prednisone (Prednisone 20 Mg Tablet) 20 mg PO DAILY [facility] Quetiapine Fumarate (Quetiapine Fumarate 300 Mg Tablet) 300 mg PO BEDTIME [facility] Last Admin: 04/05/24 22:01 Dose: 300 mg Senna (S[place] Extract Oral Syrup 15 Ml Syrup) 15 ml PO BEDTIME [facility] Last Admin: 04/05/24 22:01 Dose: 15 ml Allergies Allergies Allergy/AdvReac Type Severity Reaction Status Date / Time trazodone AdvReac Severe RLS Verified 03/23/24 22:25 Assessment & Plan Assessment & Plan (1) MDD (major depressive disorder), recurrent severe, without psychosis: Status: Acute Code(s): F33.2 - Major depressive disorder, recurrent severe without psychotic features (2) PTSD (post-traumatic stress disorder): Status: Acute Code(s): F43.10 - Post-traumatic stress disorder, unspecified (3) Opioid use disorder: Status: Acute Code(s): F11.90 - Opioid use, unspecified, uncomplicated (4) Cocaine use disorder: Status: Acute Code(s): F14.10 - Cocaine abuse, uncomplicated (5) Alcohol use disorder: Status: Acute Code(s): F10.90 - Alcohol use, unspecified, uncomplicated Plan HPI: Patient is a 43-year-old female with history of depression, anxiety, cocaine, opiate, alcohol use disorder/dependence, on methadone, who self presents for worsening depression and SI in the face of homelessness and being off medications. Patient reports that she and her are /; about 4 months ago she moved out, became homeless and stopped taking her medications and became further embroiled in polysubstance abuse. Patient reports that her depression has been mounting over the past months and this past she felt suicidal, though no plan mentioned, and self presented for treatment. Patient is detoxing from alcohol, uncomfortable, tearful and wanting to keep interview short. She says she used to be on Wellbutrin, Seroquel 300 mg q.h.s., clonidine p.r.n. all of which she found helpful would like to get back on it. She also says she used to be on Xanax 2 mg t.i.d. which was what really helped her anxiety. Patient reports both auditory and visual hallucinations, seeing people in the room, hearing birds, hearing people talking which she says knows is not real and says only happens when she is detoxing from alcohol. Patient reports history of hypothyroid though reviewed labs with pt and TSH/free T3 WNL. Formulation/clinical reasoning: -Patient has long history of severe polysubstance abuse and is currently withdrawing from alcohol with symptoms of alcoholic hallucinosis, with both auditory and visual hallucinations which she knows are hallucinations. -Chronic anxiety and depression, off meds for 4 months -Patient is not scoring very high on CIWA but complaining of problematic withdrawal symptoms; patient just restarted on methadone which might be subduing some of her symptoms -Given the longevity and severity of alcohol abuse/dependence, will schedule both gabapentin and Ativan for now and then taper them off; will continue for breakthrough symptoms; -once detox more underway will restart Wellbutrin. Other Then for detox will avoid benzos for treatment Hospital course: 03/25: continue current management and treatment plan. Asked medicine to see for evaluation of possible cellulitis. 03/26: Lower GBP to 200 mg TID. DC Ativan 2 mg. Lower standing Ativan to 0.5 mg TID. Consider further taper of sedating medications. - Hospitalist CLAYTON Upon physical examination there is an approximately 3 cm erythematous and warm oval-shape lesion on left upper buttock. Possibly some mild swelling, but no appreciable induration or fluctuance. Currently little concern for abscess. Skin intact with no noticeable abrasions. Will treat with doxycycline 100 mg b.i.d. x5 days. 03/27 pt tearful, depressed, anxious. She agrees that her own anxiety is mixed with w/drawal symptoms; says ptsd is the worst, with frequent intrusive memories. Discussed history: no hx of cuong/manic episodes; hx of AH only in context of intoxication or withdrawal. Patient feels also withdrawing from opiates, ask if methadone can be increased, in past stable on 150 mg med trials include: Prozac: Not very helpful and sexual side effects Zoloft: Not helpful (though not sure if therapeutic dose/duration). Patient has otherwise dependent on benzodiazepines to deal with anxiety. Discussed medication management for depression anxiety including how benzodiazepines are not sustainable approach given her struggles with substance abuse and PTSD. She agrees to try Trileptal after advertising writer reviewed risks/side effects, see if that can help with anxiety. -regarding detox, advertising writer maintains that longevity and severity of alcohol abuse, combined with opiate withdrawal makes detox complicated; although patient does indeed appear sedated, typically goal for detox of alcohol is sleepy but arousable. Will continue with CIWA; Ativan scheduled was lowered to 0.5 t.i.d., but will increase to q.i.d. for now; will leave gabapentin 200 mg t.i.d. for now as well. Over the next several days will detox. Patient very much wants a program to help with getting sober. -She is engaged in treatment. -patient has been on Wellbutrin in the past; will consider restarting this however Lexapro might be beneficial per PTSD 03/28 Patient reports that anxiety is a little better with Trileptal and agrees to increase it further. She says she still struggling with depression and feels ready to restart Wellbutrin. Patient shared that she is getting along well with peers in the milieu and is enjoying interacting with them. Patient was upset that a male staff entered her room for checks because she was changing; patient discussed with nursing and matter considered accidental. Patient reports low back pain and wonders if it is due to induration on buttocks Instructor Flying inspected buttocks with nurse present; erythematous area present but does not appear to be cellulitis. Patient already on antibiotics. Ordered lidocaine patch. -will increase Trileptal and restart Wellbutrin which she is done well on in the past; also will increase methadone at her request for cravings and withdrawal symptoms; will likely be able to DC CIWA soon 03/29 Anxious and depressed. Not sure that the Wellbutrin has made much difference yet but will continue to take it. Patient remains quite sedated throughout the day, nodding off in the middle of conversation. She does not know why. Patient remains sensitive struggling to not take interactions personally. Complains of lower back pain. With female nurse present, advertising writer examined lower back and patient had tenderness on palpation in the sacral vertebra. Reports history of IV cocaine/heroin use however says it is quite some time, though is vague on the timeline. -patient retracted 3 day notice; very much wants to go to a program to pursue sobriety -will order CBC, CMP, ammonia, ESR, CRP; will also get plain film x-ray on lumbar spine. Low suspicion for osteomyelitis but looking to rule out 03/30 labs reviewed and grossly WNL except for mild increasing ESR Patient complaining of increased lower back pain; discussed with hospitalist CLAYTON and lumbar an abdominal CT scan ordered; low suspicion for osteomyelitis given labs and vitals and hospitalist CLAYTON felt that CT could be obtained on the following day. LFTs moderately increased with a continued slight increasing; while this could very possibly be methadone, Hep B/C profile obtained given history of IV drug use; HIV lab ordered. Discussed these things with patient agrees with plan. Patient also asked why methadone was not further increased and accepted that current dose seems adequate for now given daytime sedation which she agreed; of note patient is more alert. is morning, Instructor Flying informed that patient was accidentally given an extra 60 mg of methadone on top of her scheduled 70 mg. Patient was informed. Instructor Flying discussed with nursing who reported that patient remained at baseline, sitting in the kitchen eating, vitals WNL including RR which was 16. Instructor Flying placed patient on immediate one-to-one with specific instructions to alert nursing to any change in status and increased vitals to Q 1 hour; discussed increasing frequency of vitals further however since patient was alert and oriented, at baseline (in kitchen eating) on a one-to-one and since methadone effects peak about 3-4 hours post administration, decided that Q 1 hour was sufficient for time being. Also discontinued other potentially sedating medications including gabapentin and Ativan. Instructor Flying discussed this with addiction consult Suki Abdi who agreed with this plan. Instructor Flying and nurse remained in communication and patient's vitals remained stable. EKG ordered. Patient has been nodding on and off throughout her entire admission and could be easily aroused just by saying her name; although this same pattern continued, during moments when she would not off, patient's RR started to decrease and O2 sat dropped and Rapid response called; patient given Narcan x2. She was transferred to the medical floor for monitoring. Pt medically stabilized and transferred back to psychiatric floor Overall well-maintained medication regimen prior to medical floor transfer yesterday. Will have Ativan as needed in addition to scheduled Ativan, given significant anxiety associated with recent events. Regarding physical concerns, complaining of: abdominal pain and discomfort- There is a lump and lower left quadrant approximately 6 or 7 cm in width, some tenderness and maybe reducible. This has been present for around 4-5 weeks with some protrusion now for around 4 days. Will request surgery consult for same. hand and back discomfort- Requesting wheelchair will request physical therapy evaluation for patient's mobility needs and best way to support same, Some difficulty with swallowing- has had this in the past and required esophageal dilation, which was many years ago i.e. in her 20s. Feels this may be starting again I can feel it building up sometimes , but is able to eat full meals, which advertising writer witnessed without obvious difficulty and drink fluids.. Will request GI consult regarding same. Patient is aware that consult will be placed as routine and therefore unlikely to be seen over the weekend, but feels positive and supported by this plan. Also of note, as per medicine: noted to be positive for Trichomonas, bacterial vaginosis, Fouzia. Received Diflucan 150 mg once and can repeat in 2 days. Should also have Flagyl 500 mg b.i.d. for 1 week. 04/02/24: Ref anxiety- will change ativan to 1mg three times daily. Pt understanding this will be tapared off by primary team and start wellbutrin- both consistent with teams admission plan. Clonidine prn available. Hydrocortisone cream for red area on lower back and monitor. Back pain x rays + hospitalist consult - pt requested same. 04/03 GI intervention: EGD with Balloon dilation of EG Junction- continue treatment plan; Suboxone titration; patient would like discharge See GI recs/plan below 04/05 patient 3 day notice coming due. She would like discharge and plans to work out her sobriety on her own. Patient has been in significantly improved mood, no SI, future oriented and tolerating medications which she has found helpful for depression and anxiety. Patient of course remains vulnerable to relapse however this is a chronic issue and 1 which will not resolve with longer stay on inpatient unit. Patient is not in imminent risk for harm to self or others and appropriate to return to the community for treatment Plan: 3 day Q 15 minute checks DC CIWA and continue with Ativan taper Taper off Ativan Gabapentin increased; will continue Continue Wellbutrin XL 150 in the morning; patient has been on before and says helpful depression Continue to Trileptal 300mg BID for anxiety Continue methadone to 60 mg in the morning for continued cravings; patient said she is to be on 150 mg Seroquel 300 mg q.h.s.; patient says she used to take this and it helps Clonidine p.r.n. Patient reports history of hypothyroid; reviewed labs and currently TSH/free T3 WNL. Methadone to Suboxone using Micro Suboxone titration 04/03 Day 1 suboxone 0.5mg (plus methadone dose) (0.25 of a 2/0.5 film) 04/04 Day 2 suboxone 0.5mg bid (plus methadone dose) (0.25 of a 2/0.5 film) 04/05 Day 3 suboxone 1mg Bid (plus methadone dose) (0.5 of a 2/0.5 film) 04/06 Day 4 suboxone 2mg Bid (plus methadone dose) 04/07 Day 5 suboxone 4mg Bid (plus methadone dose) 04/08 Day 6 suboxone 4mg bid (plus methadone dose) 04/09 Day 7 suboxone 8mg and 4mg (LAST methadone dose) 04/10 Day 8 suboxone 8mg Bid (NO METHADONE ) 03/31/24 CT/CT lumbar spine wo IV con IMPRESSION: Disc bulge and facet arthropathy with [id number] central canal stenosis at the L4-L5 level. Shallow, broad-based left paracentral to left subarticular zone disc protrusion at the L5-S1 level impressing upon the left S1 nerve root. Couple of nonobstructing subcentimeter calculi in the right kidney. Dr. Ernst GI 04/02 1.??? Dysphagia. She describes a previous EGD with dilation for an esophageal stricture about 10 years ago. Her increasing symptoms over the past month seem c/w a recurrent stricture. Denies any GERD symptoms at this time. I have recommended an upper endoscopy with dilation for Wednesday, 04/04, or Wednesday, 04/05, this week with me or Dr. Moore. My office will schedule and I will then place the orders. Full consent has been obtained from her for this, including risks of bleeding and perforation. She may need to be started on a PPI depending upon the endoscopic findings. 2. Constipation. Chronic and probably due to her meds including Methadone. Will add Miralax BID to her current regimen. 04/03 IMPRESSION: In regard to the patient's dysphagia, this seems consistent with a recurrence of her esophageal stricture as she describes a previous upper endoscopy with dilation about 10 years ago with good results from a symptomatic standpoint. Given her significant symptoms, I would recommend upper endoscopy later this week by either myself or Dr. Moore for repeat evaluation and dilation. Full consent was obtained from her for this, including risks of bleeding and perforation. Depending upon the endoscopic findings, she may need to be started back on a PPI. In regard to the constipation and CT scan findings, I would recommend the addition of MiraLax twice a day to her regimen. I do suspect the constipation is in relation to her methadone and perhaps other medications with their anticholinergic side effects. Dr. Allen, surgical consult 04/[address] scan reviewed and on physical exam i think this is a relatively superficial hematoma involving some trauma to the epigastric vessels. It does not seem to be a hernia no bowel issues Would treat conservatively with warm compresses for pain control. she is not anticoagulated. Dr. Hughes 04/01 hospital course: Patient was observed after methadone overdose complicated by acute toxic encephalopathy. She did receive 2 doses of intranasal Narcan, had some withdrawal symptoms but by next morning had completely resolved. She did not have any issues with QT prolongation. She has been restarted on methadone 70 mg daily. For low back pain CT scan showed nerve root impingement L5-S1. Can continue with conservative management. For abdominal pain this is likely due to constipation. CT scan was negative except for stool burden. She continue with bowel regimen. Also noted to be positive for Trichomonas, bacterial vaginosis, Fouzia. Will be given Diflucan 150 mg once and can repeat in 2 days. Should also have Flagyl 500 mg b.i.d. for 1 week. Patient will be transferred back to 3. Genitourinary infection: Continue antibiotics 4. Chronic Lower back pain secondary to: Disc bulge and facet arthropathy with [id number] central canal stenosis at the L4-L5 level. Shallow, broad-based left paracentral to left subarticular zone disc protrusion at the L5-S1 level impressing upon the left S1 nerve root. 5. GERD secondary to Hiatal hernia: continue Omeprazole; f/u with GI. 6. Chronic abdominal pain with CT showing relatively superficial hematoma involving some trauma to the epigastric vessels -conservative treatment CT scan reviewed and on physical exam i think this is a relatively superficial hematoma involving some trauma to the epigastric vessels. It does not seem to be a hernia no bowel issues Would treat conservatively with warm compresses for pain control. she is not anticoagulated. IMPRESSION: 1. Hiatal hernia, gastroesophageal reflux. 2. Status post balloon dilation of gastroesophageal junction. PLAN: The patient will start 40 mg omeprazole daily. I do suspect she has been having some reflux as a contributing factor to her dysphagia in relation to esophageal spasm. Hopefully, the combination of the balloon dilation and acid suppression with omeprazole will help to improve her swallowing. Her diet will be advanced. She should avoid all aspirin and NSAIDs long-term. She will be observed in regard to this eating and swallowing. Patient educated on: diagnosis, medication risk/benefits and medical condition Informed Consent: understands Reason for continued inpatient stay Substantial Risk for: stable for discharge Time Spent With Patient Time: Total time managing care of this patient today ____ minutes.
[2024-04-06] MEDS: Docusate Sodium 100 MG CAPSULE PO (08:49)
[2024-04-06] MEDS: polyethylene glycoL 3350 17 GM POWD.PACK PO (08:49)
[2024-04-06] MEDS: predniSONE 20 MG TABLET PO (08:49)
[2024-04-06] MEDS: Omeprazole 40 MG CAPSULE.DR PO (08:49)
[2024-04-06] MEDS: Gabapentin 400 MG CAPSULE PO (08:49)
[2024-04-06] MEDS: metroNIDAZOLE 500 MG TABLET PO (08:49)
[2024-04-06] MEDS: OXcarbazepine 300 MG TABLET PO (08:49)
[2024-04-06] MEDS: buPROPion HCl XL 150 MG TAB.ER.24H PO (08:49)
[2024-04-06] MEDS: DULoxetine HCl 20 MG CAPSULE.DR PO (08:50)
[2024-04-06] MEDS: methADONE HCl 20 MG/2 ML ORAL.CONC 70 MG PO (08:50)
[2024-04-06 09:16] VITALS: BP 180/95; PULSE 84; RESP 18; TEMP 36.8; O2SAT 98
[2024-04-06] MEDS: Ibuprofen 800 MG TABLET PO (09:23)
[2024-04-06] MEDS: cloNIDine HCL 0.1 MG TABLET PO (09:23)
[2024-04-06] MEDS: Buprenorphine/Naloxone 2/0.5mg FILM 0.5 FILM SUBLINGUAL ×2 (09:24→11:15)
[2024-04-06] MEDS: Cyclobenzaprine HCl 10 MG TABLET PO (09:52)
[2024-04-06] MEDS: Gabapentin 300 MG CAPSULE PO (09:52)
[2024-04-06] MEDS: hydrOXYzine HCL 50 MG TABLET PO (09:52)
[2024-04-06] MEDS: LORazepam 0.5 MG TABLET PO (09:52)
[2024-04-06] MEDS: Nicotine Polacrilex 2 MG GUM 4 MG BUCCAL (09:53)
[2024-04-06] MEDS: Naloxone HCl Nasal TAKE HOME 4 MG SPRAY 8 MG NOSTRILALT (10:02)
[2024-04-06] MEDS: Nicotine 21 MG PATCH.TD24 TRANSDERMA (10:33)
[2024-04-06] MEDS: Lidocaine 4 % Patch ADH..PATCH 1 PATCH TRANSDERMA (10:34)
--- NOTE | 2024-04-06 11:29 | PM.PSYDC ---
DS: Providers Provider Date of Service: 04/06/24 Date of admission: 04/01/24 11:37 Date of discharge: 04/06/24 Primary care physician: Unknown Physician Consults: 04/01/24 20:18 Consult to Gastroenterology Routine Consulting Provider: [facility] Gastroenterology Services Reason for consultation: Hx of esoph stricture (dilation in s). Reports similar sensations now. Has provider been notified: No Consult to General Surgery Routine Consulting Provider: [facility] General Surgeons Reason for consultation: abdo lump and lower left quadrant approx 6-7 cm,tender ?hernia Has provider been notified: No 04/02/24 12:49 Consult to Hospitalist Routine Comment: Consulting Provider: Hospitalist Reason For Exam: back pain. xrays ordered. Pt requested consult DS: Diagnosis Discharge Diagnosis (1) MDD (major depressive disorder), recurrent severe, without psychosis: Status: Acute (2) PTSD (post-traumatic stress disorder): Status: Acute (3) Opioid use disorder: Status: Acute (4) Cocaine use disorder: Status: Acute (5) Alcohol use disorder: Status: Acute DS: Medications Discharge Medications Home Medications: Home Medications ?Medication ?Instructions ?Recorded ?Confirmed acetaminophen 325 mg tablet 650 mg PO Q6H PRN Fever Or Pain 03/31/24 03/31/24 magnesium hydroxide 400 mg/5 mL 30 ml PO DAILY PRN Constipation 03/31/24 03/31/24 oral suspension (Milk of Magnesia) methadone 10 mg/mL oral concentrate 70 mg PO DAILY 03/31/24 03/31/24 naloxone 4 mg/actuation nasal 4 mg intranasal Q2M PRN Opiate 03/31/24 03/31/24 spray (Narcan) Reversal Previous Rx's ?Medication ?Instructions ?Recorded buprenorphine 2 mg-naloxone 0.5 mg See Rx Instructions .Route 04/06/24 sublingual film (Suboxone) .COMPLEX #10 ea buprenorphine 8 mg-naloxone 2 mg See Rx Instructions .Route 04/06/24 sublingual film (Suboxone) .COMPLEX #6 ea bupropion HCl 150 mg 24 hr tablet, 150 mg PO DAILY 30 days #30 tabs 04/06/24 extended release clonidine HCl 0.1 mg tablet 0.1 mg PO QID anxiety 30 days #120 04/06/24 tabs cyclobenzaprine 10 mg tablet 10 mg PO TID PRN muscle spams 30 04/06/24 days #90 tabs docusate sodium 100 mg capsule 100 mg PO TID 30 days #90 caps 04/06/24 duloxetine 20 mg capsule,delayed 20 mg PO DAILY 30 days #30 caps 04/06/24 release gabapentin 400 mg capsule 400 mg PO TID 30 days #90 caps 04/06/24 hydroxyzine HCl 50 mg tablet 50 mg PO Q6H PRN Anxiety, insomnia 04/06/24 30 days #60 tabs lidocaine 4 % topical patch 1 patch topical DAILY PRN lower 04/06/24 back pain 30 days #30 ea metronidazole 500 mg tablet 500 mg PO BID 3 days #6 tabs 04/06/24 nicotine (polacrilex) 4 mg gum 4 mg buccal Q2H PRN Nicotine 04/06/24 (Nicorette) Cravings 30 days #100 ea nicotine 21 mg/24 hr daily 1 patch transdermal DAILY PRN 04/06/24 transdermal patch nicotine cravings 28 days #28 ea omeprazole 40 mg capsule,delayed 40 mg PO DAILY@0630 30 days #30 04/06/24 release caps oxcarbazepine 300 mg tablet 300 mg PO TID 30 days #90 tabs 04/06/24 polyethylene glycol 3350 17 gram 17 g PO BID 30 days #100 ea 04/06/24 oral powder packet prednisone 20 mg tablet 20 mg PO DAILY 1 day #1 tab 04/06/24 quetiapine 300 mg tablet 300 mg PO BEDTIME 30 days #30 tabs 04/06/24 senna leaf extract 176 mg/5 mL 15 ml PO BEDTIME 30 days #450 mL 04/06/24 oral syrup (senna) Mental Status Exam Mental Status Exam Narrative: Pt is alert and oriented; behavior is cooperative, more calm, intermittently irritable; patient is not in distress; casual attire and adequate hygiene; mood is described as okay and affect congruent, overall more calm, brighter; eye contact appropriate; Speech is normal rate, volume and prosody and not pressured; no psychomotor agitation/retardation present; thought process is organized and goal directed; Thought content is on dealing with trauma history, detox, tx; otherwise pertinent to relevant topics and without any delusional content, paranoid ideations or grandiosity; no SI; no HI. No AVH. Patients insight and judgment fair Data Data Completed and Pending Completed studies during hospitalization [Text1]: 04/02/24 04/02/24 07:45 21:35 Sodium 138 Potassium 4.7 D Chloride 102 Carbon Dioxide 30 H Anion Gap 11 L BUN 14 Creatinine 0.70 Estim Creat Clear Calc TNP Estimated GFR > 60 Fasting Glucose 108 H Calcium 9.0 Total Bilirubin 0.1 AST 87 H ALT 97 H Alkaline Phosphatase 77 Total Protein 5.6 L Albumin 3.4 L Triglycerides 123 Cholesterol 125 LDL Cholesterol, Calc 68 HDL Cholesterol 33 L Influenza Type A (PCR) NEGATIVE Influenza Type B (PCR) NEGATIVE RSV RNA Qual (PCR) NEGATIVE SARS-CoV-2 RNA (RT-PCR) NEGATIVE DS: Summary Hospital Course Hospital Course: HPI: Patient is a 43-year-old female with history of depression, anxiety, cocaine, opiate, alcohol use disorder/dependence, on methadone, who self presents for worsening depression and SI in the face of homelessness and being off medications. Patient reports that she and her are /; about 4 months ago she moved out, became homeless and stopped taking her medications and became further embroiled in polysubstance abuse. Patient reports that her depression has been mounting over the past months and this past she felt suicidal, though no plan mentioned, and self presented for treatment. Patient is detoxing from alcohol, uncomfortable, tearful and wanting to keep interview short. She says she used to be on Wellbutrin, Seroquel 300 mg q.h.s., clonidine p.r.n. all of which she found helpful would like to get back on it. She also says she used to be on Xanax 2 mg t.i.d. which was what really helped her anxiety. Patient reports both auditory and visual hallucinations, seeing people in the room, hearing birds, hearing people talking which she says knows is not real and says only happens when she is detoxing from alcohol. Patient reports history of hypothyroid though reviewed labs with pt and TSH/free T3 WNL. Hx: no hx of cuong/manic episodes; hx of AH only in context of intoxication or withdrawal. med trials include: Prozac: Not very helpful and sexual side effects Zoloft: Not helpful (though not sure if therapeutic dose/duration). Hx of benzodiazepines, Xanax, to deal with anxiety. Hospital course: On admission-Patient has long history of severe polysubstance abuse and is currently withdrawing from alcohol with symptoms of alcoholic hallucinosis, with both auditory and visual hallucinations which she knows are hallucinations. -Patient is not scoring very high on CIWA but complaining of problematic withdrawal symptoms; patient just restarted on methadone which might be subduing some of her symptoms and causing sedation -Given the longevity and severity of alcohol abuse/dependence, will schedule both gabapentin and Ativan for now and then taper them off; will continue for breakthrough symptoms; -once detox more underway will restart Wellbutrin. Other Then for detox will avoid benzos for treatment Early on in admission, machine sign writer Asked medicine to see for evaluation of possible cellulitis and patient was treated with doxycycline 100 mg b.i.d. for 5 days. For the next several days, patient remained tearful, depressed, anxious and sometimes confused, very sedated, falling asleep in the middle of a conversation, again likely due to having been recently restarted on methadone. Continued struggles with anxiety mixed with w/drawal symptoms; says ptsd is the worst, with frequent intrusive memories. Discussed medication management for depression, anxiety including how benzodiazepines are not sustainable approach given her struggles with substance abuse and PTSD. She agrees to try Trileptal after machine sign writer reviewed risks/side effects, see if that can help with anxiety. Over the next several days, patient struggled through detox which was complicated given the combination of both alcohol withdrawal and opiate withdrawal. Remain frequently appearing sedated however was easily arousable. And as withdrawal symptoms subsided patient became increasingly engaged in treatment. After having started Trileptal, Patient reports that anxiety is a little better with Trileptal and agrees to increase it further. She says she still struggling with depression and feels ready to restart Wellbutrin. Throughout admission, patient intermittently had struggles with some interpersonal interactions with peers and staff on the unit. These were discussed each time; at times patient struggled to understand her role in in these interpersonal conflicts. There were also times some patient felt she was getting along well with peers in the milieu and observed enjoying interactions with them. Patient had some ambivalence about how to approach aftercare options. At 1 point she placed a 3 day notice but then later retracted it, wanting to go to a program to pursue sobriety. On 03/31 patient was accidentally given an extra 60 mg of methadone on top of her scheduled 70 mg. Patient was informed. Consumer Banker discussed with nursing who reported that patient remained at baseline, sitting in the kitchen eating, vitals WNL including RR which was 16. Consumer Banker placed patient on immediate one-to-one with specific instructions to alert nursing to any change in status and increased frequency of vitals. EKG ordered and QTC WNL. Although patient had been nodding on and off throughout her admission, currently, when she would nod off her O2 sat dropped. Rapid response called, patient given Narcan x2 and transferred to the medical floor for monitoring. Additionally per medicine: noted to be positive for Trichomonas, bacterial vaginosis, Fouzia. Received Diflucan 150 mg once and can repeat in 2 days. Should also have Flagyl 500 mg b.i.d. for 1 week. Patient's symptoms fully resolved following day, patient medically cleared and transferred back psychiatric unit Back on the psychiatric unit, patient remained stable. Mood and anxiety remained improved. Patient however did not want to go to a program, rather preferring to discharge him work on her sobriety on her own. She did however want to get off methadone and be titrated onto Suboxone. Process of micro titration of Suboxone was started on the unit. Consumer Banker thoroughly discussed the process which patient understood and felt comfortable continuing the process at home on her own. Patient continued to struggle with interpersonal interactions with some peers on the unit. However she remained stable, reporting continued improved mood and anxiety and felt ready for discharge and to continue treatment in the community. While patient remains vulnerable to relapse, she is optimistic about pursuing sobriety. She was not in imminent risk for harm to self or others and request for discharge honored. Regarding physical concerns: 1. Some difficulty with swallowing- has had this in the past and required esophageal dilation, which was many years ago i.e. in her 20s. Feels this may be starting again I can feel it building up sometimes , but is able to eat full meals, which machine sign writer witnessed without obvious difficulty and drink fluids. GI consult placed and on 04/03 GI intervention: EGD with Balloon dilation of [place]- Dr. Ernst GI: Impression/recs: 1.Hiatal hernia, gastroesophageal reflux. 2.Status post balloon dilation of gastroesophageal junction. -Start omeprazole 40mg daily. -suspect reflux as a contributing factor to her dysphagia in relation to esophageal spasm; combination of the balloon dilation and acid suppression with omeprazole will help to improve her swallowing. 2. Patient complained of lower back pain; she reported remote history of IV cocaine/heroin use however said it has been quite a long time since making low suspicion for osteomyelitis; out of abundance of caution, labs ordered and plain film x-ray obtained which were unremarkable; labs grossly WNL except for mildly increased ESR. LFTs moderately elevated likely due to methadone; hep B/C profile ordered and nonreactive. LFTs fluctuated a little bit but remains stable. Patient complained of increasing lower back pain, case was discussed with hospitalist CLAYTON and lumbar an abdominal CT scan ordered; CT/CT lumbar spine wo IV con IMPRESSION: Disc bulge and facet arthropathy with [id number] central canal stenosis at the L4-L5 level.Shallow, broad-based left paracentral to left subarticular zone disc protrusion at the L5-S1 level impressing upon the left S1 nerve root. Couple of nonobstructing subcentimeter calculi in the right kidney. Dr. Altamirano assessment: Chronic Lower back pain secondary to: Disc bulge and facet arthropathy with [id number] central canal stenosis at the L4-L5 level. Shallow, broad-based left paracentral to left subarticular zone disc protrusion at the L5-S1 level impressing upon the left S1 nerve root. 3. Abdominal pain and discomfort- There is a lump and lower left quadrant approximately 6 or 7 cm in width, some tenderness and maybe reducible. This has been present for around 4-5 weeks with some protrusion now for around 4 days. Surgery consulted: Dr. Allen commented CT scan reviewed and on physical exam i think this is a relatively superficial hematoma involving some trauma to the epigastric vessels. It does not seem to be a hernia no bowel issues. Would treat conservatively with warm compresses for pain control... -Dr. Altamirano concurred: Chronic abdominal pain with CT showing relatively superficial hematoma involving some trauma to the epigastric vessels -conservative treatment -Dr. Ernst comment: In regard to the constipation and CT scan findings, I would recommend the addition of MiraLax twice a day to her regimen. I do suspect the constipation is in relation to her methadone and perhaps other medications with their anticholinergic side effects. Time spent discussing smoking cessation with patient: 3 to 10 minutes Status at Discharge Functional status at discharge: independent ambulation Overall status at discharge: patient is back to baseline Time Spent with Patient Time attestation: Total time managing care of this patient today ____ minutes. Time spent: Greater than 30 minutes Discharge Plan Discharge Anticipated Discharge Date/Time: 04/06/24 11:45 Patient Disposition: [facility] Discharge Diagnosis: MDD, recurrent, severe without psychosis, in full remission Referrals: [facility]: Trang Gomez [Other] - 04/07/24 10:00 am (Initial diagnostic evaluation for psychiatric medication management and therapy services Appointment is in person at [facility] in [place], [place].) Vinny AMOS [Other] - 1 Week (Patient referred to Vinny AMOS) [facility] [Other] - 1 Week (Patient referred to [facility] for substance use treatment ) YAA CLINTON [place] [Other] - 04/07/24 (Patient referred for direct admit for medication assisted treatment Patient will need to self present for dosing. Hours of dosing are Wednesday-Wednesday 7 am-11 am, and Wednesday and Wednesday 7 am-10 am. Please arrive before 10am to complete paperwork, bring last dose letter, photo ID and insurance card (if you have them) ) Suki Abdi CNP [Nurse Practitioner] - 04/12/24 2:00 pm (WednesdayApril 12 at 2 pm (suboxone clinic appointment)) Adeola Archuleta FNP [Nurse Practitioner] - (Office will call you to set up a follow-up appointment.) Dave Ernst MD [Physician] - 08/15/24 1:40 pm Discharge Medications: New cyclobenzaprine 10 mg Tablet 10 mg PO TID PRN (Reason: muscle spams) 30 Days Qty: 90 0RF duloxetine 20 mg Capsule,Delayed Release(Dr/Ec) 20 mg PO DAILY 30 Days Qty: 30 1RF gabapentin 400 mg Capsule 400 mg PO TID 30 Days Qty: 90 0RF hydroxyzine HCl 50 mg Tablet 50 mg PO Q6H PRN (Reason: Anxiety, insomnia) 30 Days Qty: 60 1RF docusate sodium 100 mg Capsule 100 mg PO TID 30 Days Qty: 90 1RF polyethylene glycol 3350 17 gram Powder In Packet 17 g PO BID 30 Days Qty: 100 1RF omeprazole 40 mg Capsule,Delayed Release(Dr/Ec) 40 mg PO DAILY@0630 30 Days Qty: 30 0RF senna leaf extract [senna] 176 mg/5 mL Syrup 15 ml PO BEDTIME 30 Days Qty: 450 1RF prednisone 20 mg Tablet 20 mg PO DAILY 1 Days Qty: 1 0RF gabapentin 300 mg Capsule 300 mg PO DAILY PRN (Reason: breakthrough lower back pain) 30 Days Qty: 30 0RF Continued acetaminophen 325 mg tablet 650 mg PO Q6H PRN (Reason: Fever Or Pain) magnesium hydroxide [Milk of Magnesia] 400 mg/5 mL Suspension 30 ml PO DAILY PRN (Reason: Constipation) methadone 10 mg/mL Concentrate 70 mg PO DAILY naloxone [Narcan] 4 mg/actuation [place],Non-Aerosol 4 mg INTRANASAL Q2M PRN (Reason: Opiate Reversal) Rx Instructions: spray 1 dose into ONE nostril; alternate nostrils w each dose until help arrives quetiapine 300 mg Tablet 300 mg PO BEDTIME 30 Days Qty: 30 1RF nicotine (polacrilex) [Nicorette] 4 mg Gum 4 mg BUCCAL Q2H PRN (Reason: Nicotine Cravings) 30 Days Qty: 100 0RF bupropion HCl 150 mg Tablet Extended Release 24 Hr 150 mg PO DAILY 30 Days Qty: 30 1RF Changed clonidine HCl 0.1 mg Tablet 0.1 mg PO QID 30 Days Qty: 120 0RF lidocaine 4 % Adhesive Patch,Medicated 1 patch TOPICAL DAILY PRN (Reason: lower back pain) 30 Days Qty: 30 0RF Rx Instructions: apply to lower back/buttocks metronidazole 500 mg Tablet 500 mg PO BID 3 Days Qty: 6 0RF oxcarbazepine 300 mg Tablet 300 mg PO TID 30 Days Qty: 90 1RF nicotine 21 mg/24 hr Patch 24 Hour 1 patch TRANSDERMAL DAILY PRN (Reason: nicotine cravings) 28 Days Qty: 28 0RF Discontinued thiamine HCl (vitamin B1) 100 mg Tablet 100 mg PO DAILY clonidine HCl 0.1 mg Tablet 0.1 mg PO BEDTIME No Action buprenorphine-naloxone [Suboxone] 8-2 mg film 1 film sublingual TID Qty: 90 0RF Discharge Orders: Discharge Order (Routine); Ordered 04/06/24 Ordered By: Christopher Joseluis Diet: Regular diet Activity on Discharge: As tolerated Stand Alone Forms: Patient Portal Discharge page, Community Support Print Language: Vietnamese Care Plan Goals: Maintain mood and safe behaviors Take medications as prescribed Continue to pursue sobriety Practice coping skills Continue with outpatient providers and reach out to them as needed Health Concerns: 1. Mood stability and behaviors 2. Sobriety 3. Genitourinary infection: Continue antibiotics 4. Chronic Lower back pain secondary to: Disc bulge and facet arthropathy with [id number] central canal stenosis at the L4-L5 level. Shallow, broad-based left paracentral to left subarticular zone disc protrusion at the L5-S1 level impressing upon the left S1 nerve root. 5. GERD secondary to Hiatal hernia: continue Omeprazole; f/u with GI. 6. Chronic abdominal pain with CT showing relatively superficial hematoma involving some trauma to the epigastric vessels -conservative treatment Plan of Treatment: Follow up with your PCP, curing supervisor, psychiatric provider and other outpatient providers regarding above concerns Take medications as prescribed *SUBOXONE TITRATION: On 04/07 ?Methadone ?+ ?take one film of suboxone 2/0.5mg in the morning and one film (of 2/0.5mg) at bedtime On 04/08 ?Methadone ?+ ?take two of the suboxone 2/0.5mg films together in the morning and two films (of suboxone 2/0.5mg) at bedtime On 04/09 ?Methadone ?+ ?take two of the suboxone 2/0.5mg films together in the morning and two films (of suboxone 2/0.5mg) at bedtime On 04/10 LAST DOSE of Methadone ??+ ?take ?1 film of the suboxone 8/2mg in the morning and ONE HALF film (1/2 of suboxone 8/2mg film) at bedtime On 04/11 NO METHADONE; take one film of suboxone 8/2mg in the moring and one film (of suboxone 8/2mg) at bedtime ALSO on 04/11 Go to Suboxone Clinic appointment [facility] Assessment: Risk assessment at time of discharge:? Patient was interviewed prior to discharge and found to be fully oriented and without any SI or HI. Patient has improved insight and judgment and wants to continue treatment. Patient is not in imminent risk of harm to self or others and has a safety plan that includes presenting to the closest ER or calling 911 if feeling unsafe.? Patient has been observed closely by nursing and unit staff throughout admission; patient has not engaged in any behaviors that suggest dangerousness to self or others and has demonstrated appropriate behaviors and impulse control Discharge Date/Time: 04/06/24 11:55
== END 2024-04-06 11:55 | disposition home or self-care (01) | DRG 751 ==
PROVIDERS: Psychiatry & Neurology Psychiatry; Admitting Provider Psychiatry & Neurology Psychiatry; Visit Provider Psychiatry & Neurology Psychiatry
DX: F33.2 Major depressive disorder, recurrent severe without psychotic features (principal); R45.851 Suicidal ideations; F43.10 Post-traumatic stress disorder, unspecified; F14.10 Cocaine abuse, uncomplicated; K59.03 Drug induced constipation; T40.3X5A Adverse effect of methadone, initial encounter; S30.1XXA Contusion of abdominal wall, initial encounter; X58.XXXA Exposure to other specified factors, initial encounter; M54.16 Radiculopathy, lumbar region; E03.9 Hypothyroidism, unspecified; F11.20 Opioid dependence, uncomplicated; Z20.822 Contact with and (suspected) exposure to COVID-19; Z79.52 Long term (current) use of systemic steroids; Z79.899 Other long term (current) drug therapy
CPT/HCPCS: 0241U; 36415; 80053; 80061; J2704

== ENCOUNTER → 2024-04-01 11:37 | Outpatient (BNV) | payer OTHER, SELFPAY | PROVIDERS: Admitting Provider Psychiatry & Neurology Psychiatry; Visit Provider Psychiatry & Neurology Psychiatry | DX: F33.2 Major depressive disorder, recurrent severe without psychotic features (principal); F14.10 Cocaine abuse, uncomplicated; F11.90 Opioid use, unspecified, uncomplicated; F43.11 Post-traumatic stress disorder, acute | CPT/HCPCS: 99231; 99232; 99233; 99499 ==

== ENCOUNTER → 2024-04-01 11:37 | Outpatient (BNV) | payer OTHER, SELFPAY | PROVIDERS: Admitting Provider Psychiatry & Neurology Psychiatry; Visit Provider Surgery | DX: S30.1XXA Contusion of abdominal wall, initial encounter (principal) | CPT/HCPCS: 99222 ==

== ENCOUNTER → 2024-04-03 14:20 | Day surgery (SDC) | payer OTHER, SELFPAY ==
[2024-04-03] VITALS (7 sets, daily range): BP systolic 111–157; BP diastolic 67–99; PULSE 70–83; RESP 14–16; TEMP 36.3–36.7; O2SAT 94–99; BMI 22.7
--- NOTE | 2024-04-03 14:45 | HO.ANESPROP2 ---
HPI - Anesthesia Eval Consult details Narrative: 43 yo female patient for EGD with dilatation PMFSH Active Problems Active Problems: All Active Problems (Updated 04/03/24 @ 14:45 by Khadra Rouse MD) Abdominal wall hematoma (Acute) Opiate overdose (Acute) Acute UTI (Acute) Depression (Acute) Opioid use disorder (Acute) Cocaine use disorder (Acute) Alcohol withdrawal (Acute) Alcohol use disorder (Acute) PTSD (post-traumatic stress disorder) (Acute) MDD (major depressive disorder), recurrent severe, without psychosis (Acute) Smoker- not for a month. Patient states has been inpatient for a month Past Medical History Medical History Hypothyroid Opioid use disorder Cocaine use disorder Alcohol withdrawal Alcohol use disorder PTSD (post-traumatic stress disorder) MDD (major depressive disorder), recurrent severe, without psychosis Active substance abuse Acute anxiety Depression Family History Family history of problems with anesthesia: No Surgical History Surgical History (Updated 04/03/24 @ 14:45 by Mari Grey RN) History of esophagogastroduodenoscopy (EGD) History of carpal tunnel release of both wrists History of surgery on arm History of Problems with Anesthesia: No Social History Social History Household Members: None Household Members Other:: homeless Housing: Homeless Housing Other:: homeless w/ Do you presently have visiting nurse or other home services: No Alcohol intake: current Alcohol intake frequency: 3 or more drinks per day Alcohol type: hard liquor Comment: sitter Patient Tobacco Use Status: Current everyday Tobacco user Tobacco use type: Cigarette Cigarette Packs Per Day: 1 Cigarettes Per Day: 20 e-Cigarette/Vaping Use: Never Used Second Hand Smoke Exposure: Yes Use of substances other than those prescribed or required for medical reasons: Yes Substance Use Type: Crack/Cocaine, Heroin, IV Drugs, Marijuana, Opiates, Painkillers, Prescription Drugs and Caffiene Substance Use Type Other:: occ--last done over a month ago Are you DNR?: No Advance Directives: No Advance Directives Information Provided: Yes service: No Sexual orientation: Straight/Heterosexual Meds Allergies Allergy/AdvReac Type Severity Reaction Status Date / Time trazodone AdvReac Severe RLS Verified 03/23/24 22:25 Home Medications ?Medication ?Instructions ?Recorded ?Confirmed ?Last Taken ?Type acetaminophen 325 mg tablet 650 mg PO Q6H PRN Fever Or Pain 03/31/24 03/31/24 03/31/24 History bupropion HCl 150 mg 24 hr tablet, 150 mg PO DAILY 03/31/24 03/31/24 03/31/24 History extended release clonidine HCl 0.1 mg tablet 0.1 mg PO BEDTIME 03/31/24 03/31/24 03/30/24 History clonidine HCl 0.1 mg tablet 0.1 mg PO Q4H PRN mild anxiety 03/31/24 03/31/24 03/31/24 History lidocaine 4 % topical patch 1 patch topical DAILY 03/31/24 03/31/24 03/30/24 History magnesium hydroxide 400 mg/5 mL 30 ml PO DAILY PRN Constipation 03/31/24 03/31/24 Unknown History oral suspension (Milk of Magnesia) methadone 10 mg/mL oral concentrate 70 mg PO DAILY 03/31/24 03/31/24 03/31/24 History naloxone 4 mg/actuation nasal 4 mg intranasal Q2M PRN Opiate 03/31/24 03/31/24 Unknown History spray (Narcan) Reversal nicotine (polacrilex) 4 mg gum 4 mg buccal Q2H PRN Nicotine 03/31/24 03/31/24 Unknown History (Nicorette) Cravings nicotine 21 mg/24 hr daily 1 patch transdermal DAILY 03/31/24 03/31/24 03/31/24 History transdermal patch oxcarbazepine 300 mg tablet 300 mg PO BID 03/31/24 03/31/24 03/31/24 History quetiapine 300 mg tablet 300 mg PO BEDTIME 03/31/24 03/31/24 03/30/24 History thiamine HCl (vitamin B1) 100 mg 100 mg PO DAILY 03/31/24 03/31/24 03/31/24 History tablet Exam Height,Weight and Vital Signs: Height 5 ft 1 in Weight 54.431 kg Last Vital Signs Temp 98.0 F 04/03/24 14:39 Pulse 78 04/03/24 14:39 Resp 15 04/03/24 14:39 BP 157/99 H 04/03/24 14:39 Pulse Ox 98 04/03/24 14:39 O2 Del Method Room Air 04/03/24 14:39 Airway Mallampati Class: II TM Dist: >3cm Neck ROM: Full Loose/Missing/Broken Teeth: No (Denies broken, loose, missing teeth) Heart: RRR Lungs: CTAB Assessment and Plan Assessment Anesthesia Assessment: Anesthesia Plan Discussed and Chart Reviewed Final Anesthetic Review Family History of Problems with Anesthesia: No History of Problems with Anesthesia: No NPO: Yes ASA Class: III and Emergency Final Preanesthetic Review: No Changes in Pt Med Stat, Meds/Allgs Chart Reviewed, Consent Obtained/Reviewed and Anes Risks/Benef Reviewed Patient Risk: Intermediate Procedure Risk: Low Assessment/Block/Sedation in SS: Assess/Block/Sedation-SS Anesthetic Plan Anesthetic Plan: TIVA Disposition: Standard PACU
--- NOTE | 2024-04-03 15:23 | P.BOP_ITS ---
Brief Operative Note Date of Service: 04/03/24 Pre-op diagnosis: Dysphagia Post-op diagnosis: other (Hiatal hernia, GERD) Procedure: EGD with Balloon dilation 18mm to 19mm Surgeon: Dave Ernst MD Anesthesia: MAC Was an Lead Simulation Modeling Engineer used for this Procedure?: No Estimated blood loss (mL): 2.0 Pathology: none sent Condition: stable Disposition: PACU
--- NOTE | 2024-04-03 15:35 | PM.EVENT ---
Event Note Date of Service: 04/03/24 Event Note: EGD with Balloon dilation of EG Junction-Full note dictated Findings: 1. Irregular EG Juction with some erythema, edema, and friable mucosa. No esophagitis nor Ko's mucosa noted. No definitive stricture nor ring. Small hiatal hernia. Dilated the EG Junction from 18mm to 19mm. Imp: GERD. I suspect her dysphagia may have been in relation to her GERD and esophageal spasm. Rec: Start Omeprazole 40mg QD. Advance diet. Observe. Thanks. Time Spent With Patient Time: Total time managing care of this patient today ____ minutes.
--- NOTE | 2024-04-03 16:31 | OP_ITS ---
DATE OF SERVICE: 04/03/2024 SURGEON: Dave Ernst MD INDICATIONS: The patient presents for evaluation of dysphagia. Full consent has been obtained from her for this, including risks of bleeding and perforation. PREOPERATIVE DIAGNOSIS: Dysphagia. POSTOPERATIVE DIAGNOSIS: PROCEDURE PERFORMED: Esophagogastroduodenoscopy with balloon dilation of gastroesophageal junction. ESTIMATED BLOOD LOSS: COMPLICATIONS: ANESTHESIA: Monitored anesthesia care. ASSISTANTS: SPECIMENS: POSTOPERATIVE DIAGNOSES: Dysphagia, gastroesophageal reflux, hiatal hernia. DESCRIPTION OF PROCEDURE: The patient was placed in the left lateral decubitus position. The Olympus video gastroscope was passed in the posterior oropharynx and upper esophagus under direct vision. The scope was passed slowly into the distal esophagus. The gastroesophageal junction appeared at 36 cm. This appeared with some erythema, friability, and some edema. There was no evidence of any erosions, ulceration, stricture, nor Ko esophagus. The scope easily entered the stomach. There was a small hiatal hernia. The scope was advanced to the pylorus and the duodenum was cannulated to the descending portion. The duodenum including the bulb appeared normal without mass or ulceration. Scope was withdrawn back to the stomach. The gastric antrum and body appeared normal with good peristalsis. Scope was retroflexed, visualizing the proximal stomach carefully, which appeared normal, without any sign of mass or ulceration. Scope was straightened and withdrawn back to the esophagus. Given her symptomatology, I did use a [employer] incremental balloon to dilate the gastroesophageal junction from 18 mm to 19 mm at the recommended pressures for 60 seconds each. Post dilation, there was a minimal amount of heme noted. There was no obvious disruption of the EG junction. Proximal to the EG junction, the esophageal mucosa appeared normal. There was no sign of any mucosal abnormalities such as rings, ulceration, nor inflammation. The scope was withdrawn from the patient. She tolerated the procedure well and was returned to the recovery area in stable condition. IMPRESSION: 1. Hiatal hernia, gastroesophageal reflux. 2. Status post balloon dilation of gastroesophageal junction. PLAN: The patient will start 40 mg omeprazole daily. I do suspect she has been having some reflux as a contributing factor to her dysphagia in relation to esophageal spasm. Hopefully, the combination of the balloon dilation and acid suppression with omeprazole will help to improve her swallowing. Her diet will be advanced. She should avoid all aspirin and NSAIDs long-term. She will be observed in regard to this eating and swallowing. MD RICARDO Ling/DAGO / [id number]
== END | disposition home or self-care (01) ==
PROVIDERS: Visit Provider Internal Medicine
PROC: (CPT 43249; principal; 2024-04-03 14:30)
DX: R13.10 Dysphagia, unspecified (principal); K21.9 Gastro-esophageal reflux disease without esophagitis; K22.4 Dyskinesia of esophagus; K44.9 Diaphragmatic hernia without obstruction or gangrene; K59.00 Constipation, unspecified; E03.9 Hypothyroidism, unspecified; F14.10 Cocaine abuse, uncomplicated; F10.139 Alcohol abuse with withdrawal, unspecified; F11.94 Opioid use, unspecified with opioid-induced mood disorder; F32.A Depression, unspecified; F41.9 Anxiety disorder, unspecified; F43.10 Post-traumatic stress disorder, unspecified; Z98.890 Other specified postprocedural states; Z79.899 Other long term (current) drug therapy; Z88.8 Allergy status to other drugs, medicaments and biological substances; F17.210 Nicotine dependence, cigarettes, uncomplicated; Z79.1 Long term (current) use of non-steroidal anti-inflammatories (NSAID)
CPT/HCPCS: 43249; C1726

== ENCOUNTER 2024-04-12 14:09 | Outpatient (AMB) | payer OTHER, SELFPAY ==
--- NOTE | 2024-04-12 14:25 | MHC.AM.SUB ---
Intake Visit Reasons: Intake Allergies trazodone Adverse Reaction (Severe, Verified 03/23/24 22:25) RLS HPI HPI Intake: Details: Patient presents for intake and continuation of treatment for OUD Was transitioned from methadone to suboxone while on unit earlier this month Inpatient notes reviewed, including ALEXA history Labs and medications reviewed Last dose of methadone on 04/10 Currently at 10mg of suboxone BID 6am and 1030pm transitioned due to chronic pain and methadone --was started here at [facility] She reports current dose is effective but does not cover her the whole day Denies any side effects including constipation or difficulty sleeping She is currently living in [facility] --transportation is challenge [facility] Medical History Hypothyroid Opioid use disorder Cocaine use disorder Alcohol withdrawal Alcohol use disorder PTSD (post-traumatic stress disorder) MDD (major depressive disorder), recurrent severe, without psychosis Active substance abuse Acute anxiety Depression Surgical History (Updated 04/03/24 @ 14:45 by Mari Grey RN) History of esophagogastroduodenoscopy (EGD) History of carpal tunnel release of both wrists History of surgery on arm Social History Household Members: None Household Members Other:: homeless Housing: Homeless Housing Other:: homeless w/ Do you presently have visiting nurse or other home services: No Alcohol intake: current Alcohol intake frequency: 3 or more drinks per day Alcohol type: hard liquor Comment: sitter Patient Tobacco Use Status: Current everyday Tobacco user Tobacco use type: Cigarette Cigarette Packs Per Day: 1 Cigarettes Per Day: 20 e-Cigarette/Vaping Use: Never Used Second Hand Smoke Exposure: Yes Substance Use Type: Crack/Cocaine, Heroin, IV Drugs, Marijuana, Opiates, Painkillers, Prescription Drugs and Caffiene service: No Sexual orientation: Straight/Heterosexual Review of Systems Const Reports as per HPI Physical Exam Const General: cooperative, healthy appearing and no acute distress Nutritional Appearance: average body habitus Orientation/consciousness: patient oriented x3 Limitations: no limitations Neuro General: patient oriented x3 Assessment & Plan Assessment & Plan (1) Opioid use disorder: Code(s): F11.90 - Opioid use, unspecified, uncomplicated Category: Medical Plan: increase suboxone to 8mg TID follow up via telehealth due to transportation challenges and current residence being more than 30 mins away one month rx sent in Medications: New buprenorphine-naloxone 8-2 mg (Suboxone) 1 film sublingual TID 90 ea 0RF Discontinued buprenorphine-naloxone 2-0.5 mg (Suboxone) Discontinued Reason: Doctor's Order place 1 strip/tab under (each) side of tongue on 04/07 take one film (of suboxone 2/0.5mg) in the morning and one film (of 2/0.5mg) at bedtime on 04/08 take two films together (of suboxone 2/0.5mg) in the morning and two films together (of suboxone 2/0.5mg) at bedtime on 04/09 take two films together (of suboxone 2/0.5mg) in the morning and two films together (of suboxone 2/0.5mg) at bedtime 10 ea 0RF buprenorphine-naloxone 8-2 mg (Suboxone) Discontinued Reason: Doctor's Order On 04/10 Take 1 film (of suboxone 8/2mg) in the morning and ONE HALF film (1/2 of suboxone 8/2mg film) at bedtime On 04/11 take one film (of suboxone 8/2mg) and one film (of suboxone 8/2mg) at bedtime Then daily, Continue with Suboxone 8/2mg films BID 6 ea 0RF
== END 2024-04-12 14:37 | disposition home or self-care (01) ==
PROVIDERS: Visit Provider Nurse Practitioner Psychiatric/Mental Health
DX: F11.90 Opioid use, unspecified, uncomplicated (principal)
CPT/HCPCS: 99204

== ENCOUNTER → 2024-04-12 14:09 | Outpatient (BNVA) | payer OTHER, SELFPAY | PROVIDERS: Visit Provider Nurse Practitioner Psychiatric/Mental Health | DX: F11.20 Opioid dependence, uncomplicated (principal) | CPT/HCPCS: 99202 ==

== ENCOUNTER 2024-06-12 09:33 | Outpatient (AMB) | payer OTHER, SELFPAY ==
--- NOTE | 2024-06-12 09:33 | MHC.AM.SUB ---
Intake Visit Reasons: MAT Tele Allergies trazodone Adverse Reaction (Severe, Verified 03/23/24 22:25) [facility] HPI MAT Tele: Details: Patient presents for follow up via telehealth Dose changed to 12mg daily from 24mg was too sleepy with 24mg reports constipation is a chronic issue therapy in [facility] Medical History Hypothyroid Opioid use disorder Cocaine use disorder Alcohol withdrawal Alcohol use disorder PTSD (post-traumatic stress disorder) MDD (major depressive disorder), recurrent severe, without psychosis Active substance abuse Acute anxiety Depression Surgical History (Updated 04/03/24 @ 14:45 by Mari Grey RN) History of esophagogastroduodenoscopy (EGD) History of carpal tunnel release of both wrists History of surgery on arm Social History Household Members: None Household Members Other:: homeless Housing: Homeless Housing Other:: homeless w/ Do you presently have visiting nurse or other home services: No Alcohol intake: current Alcohol intake frequency: 3 or more drinks per day Alcohol type: hard liquor Comment: sitter Patient Tobacco Use Status: Current everyday Tobacco user Tobacco use type: Cigarette Cigarette Packs Per Day: 1 Cigarettes Per Day: 20 e-Cigarette/Vaping Use: Never Used Second Hand Smoke Exposure: Yes Substance Use Type: Crack/Cocaine, Heroin, IV Drugs, Marijuana, Opiates, Painkillers, Prescription Drugs and Caffiene service: No Sexual orientation: Straight/Heterosexual Review of Systems Const Reports as per HPI Telehealth Telehealth Telehealth Platform: Telephone Location of provider rendering services: practice address Location of patient: address on file Patient Identification confirmed using: Name, : Yes Telehealth method: voice only Patient verbally consented to treatment: Yes Patient verbally consented to billing insurance company: Yes Minutes spent on Phone/Video with Pt.: 20 Assessment & Plan Assessment & Plan (1) Opioid use disorder: Code(s): F11.90 - Opioid use, unspecified, uncomplicated Category: Medical Plan: continue suboxone at 12mg daily follow up 4 weeks Medications: New buprenorphine-naloxone 12-3 mg (Suboxone) 1 film buccal Q24H 30 ea 0RF
--- OUTSIDE RECORDS SUMMARY | 2024-06-12 09:36 | XMS_ITS | Continuity of Care Document ---
Author Organization [facility] Address [address] [place] [address]- Care Team Providers Care Space Engineer Name Role Phone Khanh CARMONA, Adeola Primary Care Physician [phone] Encounter [facility] Date(s): 04/03/24 - 05/03/24 [facility] [address] [place] [id number]- Allergies, Adverse Reactions, Alerts Substance Reaction Severity Status Mold HEADACHE, BREATHING ISSUES Mild A ctive Immunizations Given and Recorded Vaccine Date Status Refusal Reason influenza virus vaccine, inactivated 09/14/23 Trell rded influenza virus vaccine, inactivated 1 08/10/22 Gi robyn influenza virus vaccine, inactivated 07/05/20 Give n influenza virus vaccine, inactivated 06/27/19 Give n influenza virus vaccine, inactivated 06/14/18 Trell rded influenza virus vaccine, inactivated 05/14/17 Trell rded influenza virus vaccine, inactivated 11/02/16 Trell rded influenza virus vaccine, inactivated 11/05/15 Give n influenza virus vaccine, inactivated 11/16/14 Trell rded tetanus/diphtheria/pertussis, acel(Tdap) 07/23/23 Given tetanus/diphtheria/pertussis, acel(Tdap) 07/03/19 Given tetanus/diphtheria/pertussis, acel(Tdap) 12/19/15 Given tetanus/diphtheria/pertussis, acel(Tdap) 05/14/15 Recorded tetanus/diphtheria/pertussis, acel(Tdap) 01/20/11 Given pneumococcal 23-valent vaccine 02/09/20 Given influ virus vac, H1N1, inactive(oldterm) 2 07/30/09 Given 1Result Comment: [facility] [id number] 2Admin Note: H1N1 Medications cloNIDine 0.1 mg oral tablet 0.1 mg, By Mouth, 4 times a day, # 56 tablet, Refills 0, Tot. Refills 0, Maintenance, 12/24/23 16:06:00 EDT, Route to Pharmacy Electronically, [facility]/pharmacy #[id number], Partial fill upon patient request ifthe prescription is for a schedule II opioid drug.,... Start Date: 12/24/23 Stop Date: 01/07/24 Status: Ordered Colace sodium 100 mg oral capsule 100 mg, 1, capsule, By Mouth, 2 times a day, # 60 capsule, Refills 3, Tot. Refills 3, Maintenance, 04/24/24 11:36:00 EDT, Route to Pharmacy Electronically, [facility]/pharmacy #[id number], Partial fill upon patient request if the prescription is for a schedule II... Start Date: 04/24/24 Status: Ordered gabapentin 300 mg oral capsule TAKE 1 CAPSULE ORALLY DAILY NEEDED FOR BREAKTHROUGH LOWER BACK PAIN FOR 30 DAYS Start Date: 04/24/24 Status: Ordered gabapentin 400 mg oral capsule TAKE 1 CAPSULES ORALLY 3 TIMES A DAY FOR 30 DAYS Start Date: 04/24/24 Status: Ordered hydrOXYzine hydrochloride 50 mg oral tablet TAKE 1 TABLET ORALLY EVERY 6 HOURS NEEDED FOR ANXIETY, INSOMNIA FOR 30 DAYS Start Date: 04/24/24 Status: Ordered levothyroxine 0.025 mg oral tablet [...] 0 Refills, Maintenance, 12/24/23 16:10:00 EDT, Tablet, [facility]/pharmacy #[id number], Partial fill upon patient request if the prescription is for a schedule II opioid drug., 155, cm, 12/24/23 9:58:00 EDT, Height,... Start Date: 12/24/23 Stop Date: 01/07/24 Status: Ordered MiraLax oral powder for reconstitution = 17 Gm, By Mouth, Daily, # 527 Gm, 3 Refills, Maintenance, 04/24/24 11:39:00 EDT, Powder, [id number], Partial fill upon patient request if the prescription is for a schedule II opioid drug.,17 Gm By Mouth Daily, 156, cm, 04/24/24 11:21:00 ED... Start Date: 04/24/24 Status: Ordered omeprazole 40 mg oral enteric coated capsule 1 capsule = 40 mg, By Mouth, Daily, 30 min before a meal, # 90 capsule, 1 Refills, Maintenance, 04/24/24 11:59:00 EDT, [id number], Partial fill upon patient request if the prescription is fora schedule II opioid drug., 156, cm, 04/24/24 11:21... Start Date: 04/24/24 Stop Date: 10/21/24 Status: Ordered senna 187 mg oral tablet 2 tablet = 17.2 mg, By Mouth, Daily at bedtime, Hold for diarrhea, # 28 tablet, 0 Refills, Maintenance, 12/18/23 9:42:00 EDT, Tablet, Partial fill upon patient request if the prescription is for a schedule II opioid drug. Start Date: 12/18/23 Stop Date: 01/01/24 Status: Ordered SEROquel 300 mg oral tablet = 300 mg, By Mouth, Daily at bedtime, # 14 tablet, 0 Refills, Maintenance, 12/24/23 16:09:00 EDT, Tablet, [id number], Partial fill upon patient request if the prescription is for a schedule II opioid drug., 155, cm, 12/24/23 9:58:00 EDT, Aleyda... Start Date: 12/24/23 Stop Date: 01/07/24 Status: Ordered Suboxone 8 mg-2 mg sublingual film 0 Refills, Maintenance, 04/24/24 12:00:00 EDT, Partial fill upon patient request if the prescription is for a schedule II opioid drug. Start Date: 04/24/24 Status: Ordered Problem List Condition Confirmation Course [...] Team Personnel Name: Tricia Elise RN Position: [facility] RN Member Role: Primary Care Nurse Name: Morena Mcgraw RN Position: [facility] RN Member Role: Primary Care Nurse Name: Nat Joe RN Position: [facility] OB RN Member Role: Primary Care Nurse Name: Jo Lim RN Position: [facility] AMB Nurse Member Role: Primary Care Nurse Name: Adeola Cassidy NP Position: [facility] PCO Associate Professional Member Role: PCP Address: Address: [address] [place] [address]- Name: Bharathi Robles RN Position: S RN Member Role: Primary Care Nurse Name: Katie Huggins RN Position: [facility] RN Member Role: Primary Care Nurse Name: Olga Alas RN Position: [facility] RN Member Role: Primary Care Nurse Care Team Related Persons Name: ELAINE COLEALICIA Address: [employer] Address: home [address] [place] [address] [place] Name: GRADY COLE Address: home [address] [place] [address] Name: LEEANN SUTTON Address: home [address] [place], [place] Name: LUANNE SUTTON Address: home [address] [place] [address]
--- OUTSIDE RECORDS SUMMARY | 2024-06-12 09:36 | XMS_ITS | Continuity of Care Document ---
Author Organization [facility] Address [address] [place] [address]- Care Team Providers Care Market Director Name Role Phone Khanh CARMONA, Adeola Primary Care Physician [phone] Encounter [facility] Date(s): 04/24/24 - 05/01/24 [facility] [address] [place] [address]- Encounter Diagnosis Anxiety(Discharge Diagnosis) - 04/24/24 Constipation(Discharge Diagnosis) - 04/24/24 Bipolar affective(Discharge Diagnosis) - 04/24/24 Benzodiazepine abuse(Discharge Diagnosis) - 04/24/24 History of opioid abuse(Discharge Diagnosis) - 04/24/24 Left lower quadrant abdominal pain(Discharge Diagnosis) - 04/24/24 Subclinical hypothyroidism(Discharge Diagnosis) - 04/24/24 Low back pain(Discharge Diagnosis) - 04/24/24 Attending Physician: Not on Staff, Attending MD [...] Given 1Result Comment: [facility] [id number] 2Admin Note: H1N1 Medications cloNIDine 0.1 mg oral tablet 0.1 mg, By Mouth, 4 times a day, # 56 tablet, Refills 0, Tot. Refills 0, Maintenance, 12/24/23 16:06:00 EDT, Route to Pharmacy Electronically, [facility]/pharmacy #[id number], Partial fill upon patient request ifthe prescription is for a schedule II opioid drug.,... Start Date: 12/24/23 Stop Date: 01/07/24 Status: Ordered Colace sodium 100 mg oral capsule 100 mg, 1, capsule, By Mouth, 2 times a day, # 60 capsule, Refills 3, Tot. Refills 3, Maintenance, 04/24/24 11:36:00 EDT, Route to Pharmacy Electronically, [facility]/pharmacy #[id number], Partial fill upon patient request [...] 0 Refills, Maintenance, 12/24/23 16:10:00 EDT, Tablet, [facility]/pharmacy #[id number], Partial fill upon patient request if the prescription is for a schedule II opioid drug., 155, cm, 12/24/23 9:58:00 EDT, Height,... Start Date: 12/24/23 Stop Date: 01/07/24 Status: Ordered MiraLax oral powder for reconstitution = 17 Gm, By Mouth, Daily, # 527 Gm, 3 Refills, Maintenance, 04/24/24 11:39:00 EDT, Powder, [facility]/pharmacy #[id number], Partial fill upon patient request if the prescription is for a schedule II opioid drug.,17 Gm By Mouth Daily, 156, cm, 04/24/24 11:21:00 ED... Start Date: 04/24/24 Status: Ordered omeprazole 40 mg oral enteric coated capsule 1 capsule = 40 mg, By Mouth, Daily, 30 min before a meal, # 90 capsule, 1 Refills, Maintenance, 04/24/24 11:59:00 EDT, [facility]/pharmacy #[id number], Partial fill upon patient request [...] Refills, Maintenance, 12/24/23 16:09:00 EDT, Tablet, [facility]/pharmacy #[id number], Partial fill upon patient request [...] Effective Dates Health Status Clinical Service Informant Anxiety Discharge Diagnosis 04/24/24 Constipation Discharge Diagnosis 04/24/24 Bipolar affective Discharge Diagnosis 04/24/24 Benzodiazepine abuse Discharge Diagnosis 04/24/24 History of opioid abuse Discharge Diagnosis 04/24/24 Left lower quadrant abdominal pain Discharge Diagnosis 04/24/24 Subclinical hypothyroidism Discharge Diagnosis 04/24/24 Low back pain Discharge Diagnosis 04/24/24 Vital Signs Most recent to oldest [Reference Range]: 1 Height 156 cm (04/24/24 11:21 AM) Social History Social History Type Response Smoking Status 5-9 cigarettes (betw een 1/4 to 1/2 pack)/day in last 30 days; Interested in cessation: No; Tobacco user in household: Yes entered on: 12/14/23 Sex Patient Care team information Care Team Personnel Name: Tricia Elise RN Position: [facility] RN Member Role: Primary Care Nurse Name: Morena Mcgraw RN Position: [facility] RN Member Role: Primary Care Nurse Name: Nat Joe RN Position: [facility] OB RN Member Role: Primary Care Nurse Name: Jo Lim RN Position: [facility] AMB Nurse Member Role: Primary Care Nurse Name: Adeola Cassidy NP Position: [facility] PCO Associate Professional Member Role: PCP Address: Address: [address] [place] [address] [address] [place] [address]- [place] Name: Bharathi Robles RN Position: S RN Member Role: Primary Care Nurse Name: Katie Huggins RN Position: S RN Member Role: Primary Care Nurse Name: Olga Alas RN Position: S RN Member Role: Primary Care Nurse Care Team Related Persons Name: ELAINE COLEALICIA Address: [employer] Address: home [address] [place] [address] [place] Name: GRADY COLE Address: home [address] [place] [address] Name: LEEANN SUTTON Address: home [address] [place] [address] Name: LUANNE SUTTON Address: home [address] [place] [address]
--- OUTSIDE RECORDS SUMMARY | 2024-06-12 09:36 | XMS_ITS | Continuity of Care Document ---
Author Organization [facility] Address [address] [place] [address]- Care Team Providers Care Technical Healthcare Consultant Name Role Phone Khanh CARMONA, Adeola Primary Care Physician Encounter [facility] Date(s): 04/24/24 - 06/03/24 [facility] [address] [place] [address]- Attending Physician: Trina Moran NP Allergies, Adverse Reactions, Alerts Substance Reaction Severity [...] H1N1, inactive(oldterm) 2 07/30/09 Given 1Result Comment: [facility] [id number] 2Admin Note: H1N1 Medications cloNIDine 0.1 mg oral tablet 0.1 mg, By Mouth, 4 times a day, # 56 tablet, Refills 0, Tot. Refills 0, Maintenance, 12/24/23 16:06:00 EDT, Route to Pharmacy Electronically, [facility]/pharmacy #[id number], Partial fill upon patient request ifthe prescription is for a schedule II opioid drug.,... Start Date: 12/24/23 Stop Date: 01/07/24 Status: Ordered Colace sodium 100 mg oral capsule 100 mg, 1, capsule, By Mouth, 2 times a day, # 60 capsule, Refills 3, Tot. Refills 3, Maintenance, 04/24/24 11:36:00 EDT, Route to Pharmacy Electronically, [id number], Partial fill upon patient request if the prescription is for a schedule II... Start Date: 04/24/24 Status: Ordered cyclobenzaprine 10 mg oral tablet 10 mg, 1, tablet, By Mouth, 3 times a day, PRN, for 30 days, # 90 tablet, Refills 0, Tot. Refills 0, Acute 06/18/24 12:36:00 EDT, Spasm for spasm, 05/19/24 12:36:00 EDT, Route to Pharmacy Electronically, [id number], Partial fill upon patient... Start Date: 05/19/24 Stop Date: 06/18/24 Status: Ordered gabapentin 300 mg oral capsule See Instructions, TAKE 1 CAPSULE ORALLY DAILY NEEDED FOR BREAKTHROUGH LOWER BACK PAIN FOR 30 DAYS, # 30 each, Refills 0, Tot. Refills 0, Maintenance, 05/18/24 15:01:00 EDT, Instructions Replace Required Details, Route to Pharmacy Electronically, [facility]... Start Date: 05/18/24 Status: Ordered gabapentin 400 mg oral capsule 400 mg, 1, capsule, By Mouth, 3 times a day, # 90 capsule, Refills 0, Tot. Refills 0, Maintenance, 05/18/24 15:01:00 EDT, Route to Pharmacy Electronically, [id number], Partial fill upon patient request if the prescription is for a schedule II... Start Date: 05/18/24 Stop Date: 06/17/24 Status: Ordered hydrOXYzine hydrochloride 50 mg oral [...] 0 Refills, Maintenance, 12/24/23 16:10:00 EDT, Tablet, [facility]/pharmacy #[id number], Partial fill upon patient request if the prescription is for a schedule II opioid drug., 155, cm, 12/24/23 9:58:00 EDT, Height,... Start Date: 12/24/23 Stop Date: 01/07/24 Status: Ordered MiraLax oral powder for reconstitution = 17 Gm, By Mouth, Daily, # 527 Gm, 3 Refills, Maintenance, 04/24/24 11:39:00 EDT, Powder, [facility]/pharmacy #[id number], Partial fill upon patient request if the prescription is for a schedule II opioid drug.,17 Gm By Mouth Daily, 156, cm, 04/24/24 11:21:00 ED... Start Date: 04/24/24 Status: Ordered omeprazole 40 mg oral enteric coated capsule 1 capsule = 40 mg, By Mouth, Daily, 30 min before a meal, # 90 capsule, 1 Refills, Maintenance, 04/24/24 11:59:00 EDT, [facility]/pharmacy #[id number], Partial fill upon patient request if [...] Team Personnel Name: Tricia Elise RN Position: [facility] RN Member Role: Primary Care Nurse Name: Morena Mcgraw RN Position: [facility] RN Member Role: Primary Care Nurse Name: Nat Joe RN Position: [facility] OB RN Member Role: Primary Care Nurse Name: Jo Lim RN Position: [facility] AMB Nurse Member Role: Primary Care Nurse Name: Adeola Cassidy NP Position: [facility] PCO Associate Professional Member Role: PCP Address: Address: [address] [facility] [address] [place] [address]- Name: Bharathi Robles RN Position: S RN Member Role: Primary Care Nurse Name: Katie Huggins RN Position: [facility] RN Member Role: Primary Care Nurse Name: Olga Alas RN Position: [facility] RN Member Role: Primary Care Nurse Care Team Related Persons Name: NEENA COLE Address: [employer] Address: home [address] [place] [address] [place] Name: GRADY COLE Address: home [address] [place] [address] Name: LEEANN SUTTON Address: home [address] [place] [address] Name: LUANNE SUTTON Address: home [address] [place] [address]
--- OUTSIDE RECORDS SUMMARY | 2024-06-12 09:37 | XMS_ITS | Continuity of Care Document ---
Author Organization [facility] Address [address] [place] [address]- Care Team Providers Care Prop Making Supervisor Name Role Phone Khanh CARMONA, Adeola Primary Care Physician [facility]counter [facility] Date(s): 04/06/24 - 05/06/24 [facility] [address] [place] [id number]- Allergies, Adverse Reactions, Alerts Substance Reaction Severity [...] H1N1, inactive(oldterm) 2 07/30/09 Given 1Result Comment: [facility] [id number] 2Admin Note: H1N1 Medications cloNIDine 0.1 mg oral tablet 0.1 mg, By Mouth, 4 times a day, # 56 tablet, Refills 0, Tot. Refills 0, Maintenance, 12/24/23 16:06:00 EDT, Route to Pharmacy Electronically, [facility]/pharmacy #[id number], Partial fill upon patient request ifthe prescription is for a schedule II opioid drug.,... Start Date: 12/24/23 Stop Date: 01/07/24 Status: Ordered Colace sodium 100 mg oral capsule 100 mg, 1, capsule, By Mouth, 2 times a day, # 60 capsule, Refills 3, Tot. Refills 3, Maintenance, 04/24/24 11:36:00 EDT, Route to Pharmacy Electronically, [facility]/pharmacy #[id number], Partial fill upon patient request [...] 0 Refills, Maintenance, 12/24/23 16:10:00 EDT, Tablet, [facility]/pharmacy #[id number], Partial fill upon patient request if the prescription is for a schedule II opioid drug., 155, cm, 12/24/23 9:58:00 EDT, Height,... Start Date: 12/24/23 Stop Date: 01/07/24 Status: Ordered MiraLax oral powder for reconstitution = 17 Gm, By Mouth, Daily, # 527 Gm, 3 Refills, Maintenance, 04/24/24 11:39:00 EDT, Powder, [facility]/pharmacy #[id number], Partial fill upon patient request if the prescription is for a schedule II opioid drug.,17 Gm By Mouth Daily, 156, cm, 04/24/24 11:21:00 ED... Start Date: 04/24/24 Status: Ordered omeprazole 40 mg oral enteric coated capsule 1 capsule = 40 mg, By Mouth, Daily, 30 min before a meal, # 90 capsule, 1 Refills, Maintenance, 04/24/24 11:59:00 EDT, [facility]/pharmacy #[id number], Partial fill upon patient request [...] 0 Refills, Maintenance, 12/24/23 16:09:00 EDT, Tablet, [facility]/pharmacy #[id number], Partial fill upon [...] Team Personnel Name: Tricia Elise RN Position: [facility] RN Member Role: Primary Care Nurse Name: Morena Mcgraw RN Position: [facility] RN Member Role: Primary Care Nurse Name: Nat Joe RN Position: [facility] OB RN Member Role: Primary Care Nurse Name: Jo Lim RN Position: [facility] AMB Nurse Member Role: Primary Care Nurse Name: Adeola Cassidy NP Position: [facility] PCO Associate Professional Member Role: PCP Address: Address: [address] [place] [address]- [place] Name: Bharathi Robles RN Position: [facility] RN Member Role: Primary Care Nurse Name: Katie Huggins RN Position: [facility] RN Member Role: Primary Care Nurse Name: Olga Alas RN Position: [facility] RN Member Role: Primary Care Nurse Care Team Related Persons Name: KELSEYNEENA Address: [employer] Address: home [address] [place] [address] [place] Name: GRADY COLE Address: home [address] [place] [address] Name: LEEANN SUTTON Address: home [address] Name: LUANNE SUTTON Address: home [address] [place] [address]
--- OUTSIDE RECORDS SUMMARY | 2024-06-12 09:38 | XMS_ITS | Continuity of Care Document ---
Author Organization [facility] Address [address] [place] [address]- Care Team Providers Care Mannequin Maker Name Role Phone Khanh CARMONA, Adeola Primary Care Physician [phone] [place] [facility] [place] 03/24/24 - 04/23/24 [facility] [address] [place] [address]- Allergies, Adverse Reactions, Alerts Substance Reaction Severity [...] H1N1, inactive(oldterm) 2 07/30/09 Given 1Result Comment: [facility] [id number] 2Admin Note: H1N1 Medications cloNIDine 0.1 mg [...] 12/24/23 16:37:00 EDT, Route to Pharmacy Electronically, [facility]/pharmacy #[id number], Partial fill upon patient [...] 12/24/23 16:08:00 EDT, Route to Pharmacy Electronically, [facility]/pharmacy #[id number], Partial fill upon patientrequest if [...] Team Personnel Name: Tricia Elise RN Position: [facility] RN Member Role: Primary Care Nurse Name: Morena Mcgraw RN Position: [facility] RN Member Role: Primary Care Nurse Name: Nat Joe RN Position: [facility] OB RN Member Role: Primary Care Nurse Name: Jo Lim RN Position: [facility] AMB Nurse Member Role: Primary Care Nurse Name: Adeola Cassidy NP Position: [facility] PCO Associate Professional Member Role: PCP Address: Address: [address] [place] [id number] Name: Bharathi Robles RN Position: [facility] RN Member Role: Primary Care Nurse Name: Katie Huggins RN Position: S RN Member Role: Primary Care Nurse Name: Olga Alas RN Position: S RN Member Role: Primary Care Nurse Care Team Related Persons Name: KELSEY BLECASSYING Address: [employer] Address: home [address] [place] [address] Name: GRADY COLE Address: home [address] [place] [address] Name: LEEANN SUTTON Address: home [address] [place] [address] Name: LUANNE SUTTON Address: home [address] [place] [address]
--- OUTSIDE RECORDS SUMMARY | 2024-06-12 09:38 | XMS_ITS | Continuity of Care Document ---
Author Organization [facility] Adult Address [address] [place] [address]- Care Team Providers Care Barrel Plater Name Role Phone Adeola Cassidy NP Primary Care Physician [place] [facility] [place] 06/03/24 [facility] Adult [address] [place] [address]- Attending Physician: Amador Arias Admitting Physician: Amador Arias Referring Physician: Sadaf Miller LPN Referring Physician: trAmador Allergies, Adverse Reactions, Alerts Substance Reaction Severity [...] inactive(oldterm) 2 07/30/09 Given 1Result Comment: [facility] [id number] 2Admin Note: H1N1 Medications cloNIDine 0.1 mg oral tablet 0.1 mg, By Mouth, 4 times a day, # 56 tablet, Refills 0, Tot. Refills 0, Maintenance, 12/24/23 16:06:00 EDT, Route to Pharmacy Electronically, [facility]/pharmacy #[id number], Partial fill upon patient request ifthe prescription [...] Refills, Maintenance, 12/24/23 16:10:00 EDT, Tablet, [facility]/pharmacy #[id number], Partial fill upon patient request if the prescription is for a schedule II opioid drug., 155, cm, 12/24/23 9:58:00 EDT, Height,... Start Date: 12/24/23 Stop Date: 01/07/24 Status: Ordered MiraLax oral powder for reconstitution = 17 Gm, By Mouth, Daily, # 527 Gm, 3 Refills, Maintenance, 04/24/24 11:39:00 EDT, Powder, [facility]/pharmacy #[id number], Partial fill upon patient request if the prescription is for a schedule II opioid drug.,17 Gm By Mouth Daily, 156, cm, 04/24/24 11:21:00 ED... Start Date: 04/24/24 Status: Ordered omeprazole 40 mg oral enteric coated capsule 1 capsule = 40 mg, By Mouth, Daily, 30 min before a meal, # 90 capsule, 1 Refills, Maintenance, 04/24/24 11:59:00 EDT, [facility]/pharmacy #[id number], Partial fill upon patient request [...] Refills, Maintenance, 12/24/23 16:09:00 EDT, Tablet, [facility]pharmacy #[id number], Partial fill upon patient request if the [...] Event Display: Non Lab Results Authored Date: [id number] Patient Care team information Care Team Personnel Name: Tricia Elise RN Position: [facility] RN Member Role: Primary Care Nurse Name: Morena Mcgraw RN Position: [facility] RN Member Role: Primary Care Nurse Name: Nat Joe RN Position: [facility] OB RN Member Role: Primary Care Nurse Name: Jo Lim RN Position: [facility] AMB Nurse Member Role: Primary Care Nurse Name: Adeola Cassidy NP Position: [facility] PCO Associate Professional Member Role: PCP Address: Address: [address] [place] [id number]- Name: Bharathi Robles RN Position: [facility] RN Member Role: Primary Care Nurse Name: Katie Huggins RN Position: [facility] RN Member Role: Primary Care Nurse Name: Olga Alas RN Position: [facility] RN Member Role: Primary Care Nurse Care Team Related Persons Name: NEENA COLE Address: [employer] Address: home [address] [place] [address] [place] Name: GRADY COLE Address: home [address] [place] [address] Name: LEEANN SUTTON Address: home [address] [place] [address] Name: LUANNE SUTTON Address: home [address] [place] [address]
== END 2024-06-12 10:17 | disposition home or self-care (01) ==
PROVIDERS: Visit Provider Nurse Practitioner Psychiatric/Mental Health
DX: F11.90 Opioid use, unspecified, uncomplicated (principal)
CPT/HCPCS: 99213

== ENCOUNTER → 2024-06-12 09:33 | Outpatient (BNVA) | payer OTHER, SELFPAY | PROVIDERS: Visit Provider Nurse Practitioner Psychiatric/Mental Health ==

== ENCOUNTER 2024-07-12 09:09 | Outpatient (AMB) | payer OTHER, SELFPAY ==
--- NOTE | 2024-07-12 09:10 | A.OFFVISCC_ITS ---
Intake Visit Reasons: MAT Tele Allergies trazodone Adverse Reaction (Severe, Verified 03/23/24 22:25) RLS Medication List - Last Reconciled 07/12/24 by Suki Abdi CNP acetaminophen 650 mg PO Q6H PRN buprenorphine-naloxone 12-3 mg (Suboxone) 1 film buccal Q24H clonidine HCl 0.1 mg PO QID 30 days cyclobenzaprine 10 mg PO TID PRN 30 days docusate sodium 100 mg PO TID 30 days gabapentin 400 mg PO TID 30 days gabapentin 300 mg PO DAILY PRN 30 days hydroxyzine HCl 50 mg PO Q6H PRN 30 days magnesium hydroxide (Milk of Magnesia) 30 mL PO DAILY PRN omeprazole 40 mg PO DAILY@0630 30 days polyethylene glycol 3350 17 grams PO BID 30 days quetiapine 300 mg PO BEDTIME 30 days senna leaf extract (senna) 15 mL PO BEDTIME 30 days HPI HPI MAT Tele: Details: Patient presents for follow up via telehealth Current dose 12mg daily --takes full dose in the morning tolerating current dose therapist weekly no concerns at this time [facility] Medical History Hypothyroid Opioid use disorder Cocaine use disorder Alcohol withdrawal Alcohol use disorder PTSD (post-traumatic stress disorder) MDD (major depressive disorder), recurrent severe, without psychosis Active substance abuse Acute anxiety Depression Surgical History (Updated 04/03/24 @ 14:45 by Mari Grey RN) History of esophagogastroduodenoscopy (EGD) History of carpal tunnel release of both wrists History of surgery on arm Social History Household Members: None Household Members Other:: homeless Housing: Homeless Housing Other:: homeless w/ Do you presently have visiting nurse or other home services: No Alcohol intake: current Alcohol intake frequency: 3 or more drinks per day Alcohol type: hard liquor Comment: sitter Patient Tobacco Use Status: Current everyday Tobacco user Tobacco use type: Cigarette Cigarette Packs Per Day: 1 Cigarettes Per Day: 20 e-Cigarette/Vaping Use: Never Used Second Hand Smoke Exposure: Yes Substance Use Type: Crack/Cocaine, Heroin, IV Drugs, Marijuana, Opiates, Painkillers, Prescription Drugs and Caffiene service: No Sexual orientation: Straight/Heterosexual Review of Systems Const Reports as per [facility] Telehealth Telehealth Telehealth Platform: Telephone Location of provider rendering services: practice address Location of patient: address on file Patient Identification confirmed using: Name, : Yes Telehealth method: voice only Patient verbally consented to treatment: Yes Patient verbally consented to billing insurance company: Yes Minutes spent on Phone/Video with Pt.: 15 Assessment & Plan Assessment & Plan (1) Opioid use disorder: Code(s): F11.90 - Opioid use, unspecified, uncomplicated Category: Medical Plan: * continue suboxone at current dose * next follow up in office
== END 2024-07-12 09:37 | disposition home or self-care (01) ==
PROVIDERS: Visit Provider Nurse Practitioner Psychiatric/Mental Health
DX: F11.90 Opioid use, unspecified, uncomplicated (principal)
CPT/HCPCS: 99213

== ENCOUNTER → 2024-07-12 09:09 | Outpatient (BNVA) | payer OTHER, SELFPAY | PROVIDERS: Visit Provider Nurse Practitioner Psychiatric/Mental Health ==

== ENCOUNTER 2024-08-23 09:29 | Outpatient (REF) | payer OTHER, SELFPAY ==
[2024-08-23 11:32] LABS: Alanine Aminotransferase 13 U/L (0-31); Albumin Level 4.6 g/dL (3.5-5.0); Alkaline Phosphatase 51 U/L (39-117); Anion Gap 15 (12-20); Aspartate Amino Transferase 17 U/L (5-31); Bilirubin Total 0.2 mg/dL (0.0-1.0); Blood Urea Nitrogen 15 mg/dL (9-16); Calcium 9.5 mg/dL (8.4-10.2); Carbon Dioxide 26 mmol/L (22-29); Chloride 103 mmol/L (96-108); Estimated Glomerular Filt Rate > 60; Glucose Random 102 mg/dL (60-115); Potassium 4.4 mmol/L (3.3-5.1); Sodium 140 mmol/L (135-145); Total Protein 6.8 g/dL (6.5-8.0)
== END 2024-08-23 09:30 | disposition home or self-care (01) ==
LOC: HO.LAB 09:29
PROVIDERS: Visit Provider Nurse Practitioner Psychiatric/Mental Health
DX: F11.90 Opioid use, unspecified, uncomplicated (principal); Z79.899 Other long term (current) drug therapy
CPT/HCPCS: 36415; 80053; 99212

== ENCOUNTER 2024-08-23 09:29 | Outpatient (AMB) | payer OTHER, SELFPAY ==
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
== END 2024-08-23 10:03 | disposition home or self-care (01) ==
PROVIDERS: Visit Provider Nurse Practitioner Psychiatric/Mental Health
DX: F11.90 Opioid use, unspecified, uncomplicated (principal)
CPT/HCPCS: 99213

== ENCOUNTER 2024-10-08 00:19 | Emergency (ER) | payer OTHER, SELFPAY ==
[2024-10-08 00:28] VITALS: BP 180/112; PULSE 97; RESP 16; TEMP 36.7; O2SAT 98; BMI 22.7
[2024-10-08 01:33] LABS: MANUAL DIFF FLAG NO
[2024-10-08 01:38] LABS: Basophils Absolute Auto 0.1 X10*3/uL (0.0-0.2); Basophils Percent Auto 0.5 % (0-2); Eosinophils Absolute Auto 0.2 X10*3/uL (0.0-0.4); Eosinophils Percent Auto 2.1 % (0-4); Hematocrit 41.1 % (37.0-47.0); Hemoglobin 14.5 g/dl (12.0-16.0); Imm Gran Abs Auto 0.03 X10*3/uL (0.00-0.03); Imm Gran Pct Auto 0.3 % (0.0-0.4); Lymphocytes Absolute Auto 3.2 X10*3/uL (1.2-4.9); Lymphocytes Percent Auto 29.3 % (20-40); Mean Corpuscular HGB Conc 35.3 g/dl (31.0-35.0); Mean Corpuscular Hemoglobin 30.3 pg (27.0-33.0); Mean Corpuscular Volume 85.8 fL (80.0-98.0); Mean Platelet Volume 10.6 fL (9.4-12.3); Monocytes Absolute Auto 1.1 X10*3/uL (0.1-1.2); Monocytes Percent Auto 10.4 % (2-11); Neutrophils Absolute Auto 6.3 x10*3/uL (2.0-8.3); Neutrophils Percent Auto 57.4 % (45-73); Platelet Count 283 X10*3/uL (160-400); Red Blood Count 4.79 X10*6/uL (4.20-5.50); Red Cell Distribution Width 13.1 % (11.0-16.0); White Blood Count 10.9 X10*3/uL (4.8-10.8)
[2024-10-08 01:48] LABS: Ethanol < 10 mg/dL
[2024-10-08 01:48] LABS: Amphetamine Screen Urine Not Detected (Not Detect); Barbiturates, Urine Not Detected (Not Detect); Benzodiazepines Screen Urine Not Detected (Not Detect); Buprenorphine Scr Positive (Not Detect); Cannabinoid Screen Urine POSITIVE (Not Detect); Cocaine Screen Urine POSITIVE (Not Detect); Fentanyl, urine POSITIVE (Not Detect); Methadone Screen, Urine Not Detected (Not Detect); Opiate Screen Urine Not Detected (Not Detect); Oxycodone Screen Urine Not Detected (Not Detect); Phencyclidine Screen Urine Not Detected (Not Detect)
[2024-10-08 01:49] LABS: Appearance Urine Clear; Color Urine Yellow; Glucose Urine UA Negative (Negative); Leukocyte Esterase Urine Negative (Negative); Nitrite Urine Negative (Negative); Urine Blood Negative (Negative); Urine Ketones Negative (Negative); Urine Protein Negative (Neg-Trace)
[2024-10-08 01:59] LABS: Alanine Aminotransferase 37 U/L (0-31); Albumin Level 4.6 g/dL (3.5-5.0); Anion Gap 13 (12-20); Aspartate Amino Transferase 35 U/L (5-31); Bilirubin Total 0.4 mg/dL (0.0-1.0); Blood Urea Nitrogen 14 mg/dL (9-16); Carbon Dioxide 24 mmol/L (22-29); Chloride 107 mmol/L (96-108); Creatinine Clr Calc Pharmacy 81.7; Estimated Glomerular Filt Rate > 60; Glucose Random 85 mg/dL (60-115); Potassium 4.2 mmol/L (3.3-5.1); Sodium 140 mmol/L (135-145); Total Protein 7.4 g/dL (6.5-8.0)
[2024-10-08 02:16] LABS: Alkaline Phosphatase 51 U/L (39-117)
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
[2024-10-08 03:56] LABS: UPreg QC Valid YES; Urine Pregnancy NEGATIVE (NEGATIVE)
--- NOTE | 2024-10-08 06:45 | PC.NURSE ---
Patient slept through the night, no distress observed/reported, pending care team evaluation, 15 minutes safety check, no behavior and safety concerns, will continue to monitor
--- NOTE | 2024-10-08 07:09 | PC.NURSE ---
Assumed care of patient at 0645, patient appears to be sleeping, respirations even and unlabored, no apparent distress noted. Continue plan of care for CARE team evaluation
[2024-10-08 17:31] VITALS: BP 131/91; PULSE 94; RESP 20; TEMP 36.8; O2SAT 100
[2024-10-08] MEDS: Nicotine 21 MG PATCH.TD24 TRANSDERMA (17:32)
[2024-10-08] MEDS: LORazepam 1 MG TABLET PO ×2 (18:13→21:12)
[2024-10-08] MEDS: Buprenorphine/Naloxone 8/2 mg FILM 1 FILM SUBLINGUAL (18:15)
[2024-10-08] MEDS: Nicotine Polacrilex 2 MG GUM BUCCAL ×2 (19:55→22:58)
[2024-10-09] MEDS: LORazepam 1 MG TABLET 2 MG PO (01:19)
[2024-10-09 06:04] VITALS: BP 131/86; PULSE 83; RESP 15; TEMP 36.4; O2SAT 96
--- NOTE | 2024-10-09 06:35 | PC.NURSE ---
patient upon awakening requested tea and soon thereafter more ativan, stating the 2mg dose was more beneficial. relayed this information to ED provider.
--- NOTE | 2024-10-09 08:21 | ECG_ITS ---
Test Reason : prolonged qtc Blood Pressure : */* mmHG Vent. Rate : 72 BPM Atrial Rate : 72 BPM P-R Int : * ms QRS Dur : 76 ms QT Int : 358 ms P-R-T Axes : 21 76 54 degrees QTcB Int : 392 ms Poor data quality Sinus rhythm Abnormal ECG When compared with ECG of 31-Mar-2024 11:44, No significant changes seen Referred By: Maryanne Ferguson Electronically Signed By: Remy Villa
[2024-10-09] MEDS: Buprenorphine/Naloxone 8/2 mg FILM 1 FILM SUBLINGUAL (08:39)
[2024-10-09] MEDS: Omeprazole 40 MG CAPSULE.DR PO (08:39)
[2024-10-09] MEDS: LORazepam 1 MG TABLET PO (08:39)
[2024-10-09] MEDS: hydrOXYzine HCL 50 MG TABLET PO (08:39)
--- NOTE | 2024-10-09 09:30 | PC.NURSE ---
pt requesting 2mg ativan PRN. Dr Son notified.
--- NOTE | 2024-10-09 10:15 | MHC.RECOVRN ---
Met with pt in [facility] to check in and provide support. Pt sees Suki Abdi APRN, at the [facility] for Suboxone. Pt laying in bed, eyes closed, wakes to voice, appears comfortable. Pt reports she had not had her Suboxone in a few days and had been experiencing withdrawal. Suboxone (8 mg BID) has since been ordered and administered. Pt denies current withdrawal symptoms. Pt requesting gabapentin--discussed with MQ who would like pt to discuss medication with psychiatrist. RN aware. Pt denies other questions or concerns for t/w.
[2024-10-09] MEDS: Nicotine Polacrilex 2 MG GUM BUCCAL (12:48)
--- NOTE | 2024-10-09 12:53 | PC.NURSE ---
Patient states she is going home at 2pm to go home to deal with some stuff
[2024-10-09 13:29] VITALS: BP 131/86; PULSE 83; RESP 15; TEMP 36.4; O2SAT 96
== END 2024-10-09 13:33 | disposition home or self-care (01) ==
PROVIDERS: Emergency Provider Emergency Medicine
DX: F41.1 Generalized anxiety disorder (principal); F33.1 Major depressive disorder, recurrent, moderate; F43.9 Reaction to severe stress, unspecified; F14.90 Cocaine use, unspecified, uncomplicated; F17.210 Nicotine dependence, cigarettes, uncomplicated; R94.31 Abnormal electrocardiogram [ECG] [EKG]; F11.90 Opioid use, unspecified, uncomplicated; Z79.899 Other long term (current) drug therapy; Z51.81 Encounter for therapeutic drug level monitoring
CPT/HCPCS: 36415; 80053; 80307; 81003; 81025; 85025; 93005; 99285; S9485

== ENCOUNTER → 2024-10-09 08:21 | Outpatient (BNV) | payer OTHER, SELFPAY | PROVIDERS: Emergency Provider Emergency Medicine; Visit Provider Internal Medicine Cardiovascular Disease | DX: R94.31 Abnormal electrocardiogram [ECG] [EKG] (principal) | CPT/HCPCS: 93010 ==

== ENCOUNTER 2024-10-17 16:24 | Emergency (ER) | payer OTHER, SELFPAY ==
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
[2024-10-17 16:34] VITALS: BP 134/88; PULSE 76; O2SAT 98; BMI 22.7
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
[2024-10-17] MEDS: LORazepam 0.5 MG TABLET PO (18:00)
[2024-10-17] MEDS: Acetaminophen 325 MG TABLET 975 MG PO (18:00)
--- OUTSIDE RECORDS SUMMARY | 2024-10-17 18:02 | XMS_ITS ---
Author Organization [facility] Address [address] [place] [phone] Care Team Providers Care Ski Patrol Officer Name Role Phone EVITA WEST Primary Care Provider Dave Harding [phone] Encounters Encounter Location Date Provider Diagnosis [facility] [address] [place] [phone] 08/15/2024 Dave Ernst PLAN OF TREATMENT No Information
--- OUTSIDE RECORDS SUMMARY | 2024-10-17 18:03 | XMS_ITS | Patient Health Record ---
Author Organization [facility] Address [address] [place], [place] [phone] Care Team Providers Care Physician Advisor Name Role Phone [facility] Primary Care Provid er Unavailable Kiana Medel Unavailable Reason For Referral No Information Encounters Encounter Location Date Provider Diagnosis [facility] [address] [place], [place] [phone] 02/23/2024 Kiana Medel Plan Of Treatment No Information Insurance Providers Payer Name Payer Address Payer Phone Subscriber Number Group Number Insured Name Patient Relationship to Insured Coverage Start Date Coverage End Date [place] Medicaid Standard [address] [place] [address] Consuelo Soriano Self - patient is the insured
--- OUTSIDE RECORDS SUMMARY | 2024-10-17 18:03 | XMS_ITS | Patient Health Record ---
Author Organization [facility] Address [address] [place] [address] Care Team Providers Care Head Banquet Waiter/Waitress Name Role Phone EVITA WEST Primary Care Provider Dave Harding [phone] REASON FOR REFERRAL No Information SOCIAL HISTORY Sex Assigned At : Social History Observation Description Sex Assigned At Unknown PROBLEMS Problem Type ICD Code Onset Dates Problem Status W/U Status Risk SNOMED Code Notes Problem Dysphagia (R13.10) Active confirmed Dys phagia (80845079) Problem Gastroesophageal reflux (K21.9) Active confirmed Esophageal reflux finding (180025682) Encounters Encounter Location Date Provider Diagnosis [facility] [address] [place] [phone] 08/15/2024 Dave Ernst [facility] [address] [place] [phone] 08/15/2024 Dave Ernst PLAN OF TREATMENT No Information Insurance Providers Payer Name Payer Address Payer Phone Subscriber Number Group Number Insured Name Patient Relationship to Insured Coverage Start Date Coverage End Date [facility] [address] [place] [id number] LASHANDA RICHTER Self - patient is the insured
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
--- OUTSIDE RECORDS SUMMARY | 2024-10-17 18:03 | XMS_ITS ---
Author Organization [facility] Address [address] [place] [phone] Care Team Providers Care Metal Fabricator Apprentice Name Role Phone EVITA WEST Primary Care Provider Dave Harding [phone] REASON FOR VISIT Patient presents today for a F/U FROM HOSPITAL/dysphagia Encounters Encounter Location Date Provider Diagnosis [facility] [address] [place] [phone] 08/15/2024 Dave Ernst PLAN OF TREATMENT No Information
[2024-10-17 18:37] VITALS: BP 131/81; PULSE 79; RESP 14; TEMP 36.6; O2SAT 98
--- NOTE | 2024-10-17 22:24 | PC.NURSE ---
pt provided with harm reduction kit per request
== END 2024-10-17 22:25 | disposition home or self-care (01) ==
PROVIDERS: Emergency Provider Emergency Medicine Emergency Medical Services
DX: S09.90XA Unspecified injury of head, initial encounter (principal); S13.4XXA Sprain of ligaments of cervical spine, initial encounter; M54.2 Cervicalgia; R51.9 Headache, unspecified; M54.6 Pain in thoracic spine; V43.62XA Car passenger injured in collision with other type car in traffic accident, initial encounter; Y93.89 Activity, other specified; Y92.488 Other paved roadways as the place of occurrence of the external cause; Y99.8 Other external cause status
CPT/HCPCS: 70450; 72125; 72128; 99284

== ENCOUNTER → 2024-10-17 16:46 | Outpatient (BNV) | payer OTHER, SELFPAY | PROVIDERS: Emergency Provider Emergency Medicine Emergency Medical Services; Visit Provider Radiology Diagnostic Radiology | DX: S09.90XA Unspecified injury of head, initial encounter (principal); M54.2 Cervicalgia | CPT/HCPCS: 70450; 72125; 72128 ==

== ENCOUNTER 2024-12-11 14:55 | Outpatient (AMB) | payer OTHER, SELFPAY ==
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
--- OUTSIDE RECORDS SUMMARY | 2024-12-11 17:30 | XMS_ITS | Patient Health Record ---
Author Organization [facility] Address [address] [place], [place] [phone] Care Team Providers Care Physician'S Aide Name Role Phone [facility] Primary Care Provid er Unavailable Kiana Medel Unavailable Reason For Referral No Information Encounters Encounter Location Date Provider Diagnosis [facility] [address] [place], [place] [phone] 02/23/2024 Kiana Medel Plan Of Treatment No Information Insurance Providers Payer Name Payer Address Payer Phone Subscriber Number Group Number Insured Name Patient Relationship to Insured Coverage Start Date Coverage End Date [place] Medicaid Standard [address] [place] [address] [phone] Consuelo Soriano Self - patient is the insured
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
--- OUTSIDE RECORDS SUMMARY | 2024-12-11 17:30 | XMS_ITS ---
Author Organization [facility] Address [address] [place] [address] Care Team Providers Care Allergist/Immunologist Physician Name Role Phone EVITA WEST Primary Care Provider Dave Harding [phone] Encounters Encounter Location Date Provider Diagnosis [facility] [address] [place] [address] 08/15/2024 Dave Ernst Plan Of Treatment No Information Progress Notes * CRISTO RICHTEROB: 1 (44 yo F)Acc No.[id number]:08/15/2024 Patient:?LASHANDA RICHTER :1980???Age:44 Y???Sex:Female Address:[place], [address] * true * Date:? Generated for Sadaf koroma/Sheldon/eTransmitting on:?12/11/2024 05:30 PM EDT
--- OUTSIDE RECORDS SUMMARY | 2024-12-11 17:30 | XMS_ITS | Patient Health Record ---
Author Organization [facility] Address [address] [place] [address] Care Team Providers Care Paid Search Marketing Strategist Name Role Phone EVITA WEST Primary Care Provider Dave Harding [phone] Reason For Referral No Information Problems Problem Type SNOMED Code ICD Code Onset Dates Problem Status W/U Status Risk Notes Problem Dysphagia (83413531) Dysphagia (R13.10) Active confirmed Problem Esophageal reflux finding (821343013) Gastroesophageal reflux (K21.9) Active confirmed Encounters Encounter Location Date Provider Diagnosis [facility] [address] [place], [place] [address] [place] [address] 08/15/2024 Dave Ernst Plan Of Treatment No Information Insurance Providers Payer Name Payer Address Payer Phone Subscriber Number Group Number Insured Name Patient Relationship to Insured Coverage Start Date Coverage End Date [facility] [address] [place] [phone] [id number] LASHANDA RICHTER Self - patient is the insured
== END 2024-12-11 15:13 | disposition home or self-care (01) ==
LOC: HO.HCC 14:55
PROVIDERS: Visit Provider Nurse Practitioner Psychiatric/Mental Health
DX: F11.90 Opioid use, unspecified, uncomplicated (principal)
CPT/HCPCS: 99213

== ENCOUNTER → 2024-12-11 14:55 | Outpatient (BNVA) | payer OTHER, SELFPAY | PROVIDERS: Visit Provider Nurse Practitioner Psychiatric/Mental Health | DX: F11.90 Opioid use, unspecified, uncomplicated (principal); Z51.81 Encounter for therapeutic drug level monitoring | CPT/HCPCS: 99212 ==